=== PATIENT | female | born 1950 | race Caucasian/White ===

== ENCOUNTER 2019-03-28 08:52 | Outpatient (CLI) | payer MEDICARE, OTHER, SELFPAY ==
--- NOTE | ~2019-03-28 | US_ITS ---
EXAMINATION: US art doppler w press MIKE SAINI EXAM DATE: 03/28/2019 09:37 INDICATION: Peripheral arterial disease. Leg pain. Varicose veins. TECHNIQUE: Segmental pressures and plethysmographic and Doppler waveforms of the brachial and lower e xtremity arteries were obtained. There is no prior study for comparison. FINDINGS: Right and left brachial artery pressures of 158 mm Hg and 154 mm Hg, respectively, are concordant (no rmal difference <= 30 mmHg). The right and left thigh-brachial pressure indices are 1.16, 1.18, resp ectively (normal > 1.2). RIGHT LEG: The ankle-brachial index (SUZETTE) is 1.16 (normal >= 0.9-1). The great toe-brachial index (TBI) is 0.77 (normal >= 0.65). The lower extremity ratios, segmental pressure gradients as follows; Proximal superficial femoral artery:- 1.16 (183 mmHg). Distal superficial femoral artery: ----- 1.13 (179 mmHg). Popliteal: 1.17 (185 mmHg). Dorsalis pedis: 1.03 (162 mmHg). Posterior tibial: 1.16 (183 mmHg). (Normal gradients <= 20-30 mmHg between adjacent levels on the same leg or the same levels on the two legs). Arterial waveforms are biphasic. LEFT LEG: The ankle-brachial index (SUZETTE) is 1.08 (normal >= 0.9-1). The great toe-brachial index (TBI) is 0.89 (normal >= 0.65). The lower extremity ratios, segmental pressure gradients as follows; Proximal superficial femoral artery:- 1.18 (186 mmHg). Distal superficial femoral artery: ----- Could not obtain ( mmHg). Popliteal: 1.26 (199 mmHg). Dorsalis pedis: 1.08 (170 mmHg). Posterior tibial: 1.01 (151 mmHg). (Normal gradients <= 20-30 mmHg between adjacent levels on the same leg or the same levels on the two legs). Arterial waveforms are monophasic DP, otherwise biphasic. IMPRESSION: 1. Right ankle-brachial index 1.16, normal. 2. Left ankle-brachial index 1.08, normal. 3. Segmental pressures as above. Reviewed, dictated and finalized at location A. ITAL CARRIER
== END 2019-03-28 08:53 | disposition home or self-care (01) ==
LOC: ANHIMG 08:54
PROVIDERS: Visit Provider Internal Medicine Cardiovascular Disease
DX: M79.89 Other specified soft tissue disorders (principal)
CPT/HCPCS: 93923

== ENCOUNTER 2019-09-20 13:14 | Outpatient (CLI) | payer MEDICARE, OTHER, SELFPAY ==
--- NOTE | ~2019-09-20 | US_ITS ---
EXAMINATION: US carotid duplex BI EXAM DATE: 09/20/2019 13:53 INDICATION: Episode of speech impairment. TECHNIQUE: Grayscale, color and pulsed Doppler images of the cervical carotid arteries were obtained . The degree of vessel stenosis is placed in one of the following categories: normal, <50% stenosis, 50-69% stenosis, >=70% stenosis but less than near-occlusion, near-occlusion, or occlusion. Note that percent stenosis relative to normal distal artery lumen diameter is indirectly measured from velocit y measurements as described by Boone, et al. Radiology 2003; [id number]. There is no prior study fo r comparison. FINDINGS: RIGHT SIDE: Right common carotid artery peak systolic velocity (PSV in cm/s): 74 Right bulb/internal carotid artery peak systolic velocity (PSV in cm/s): 79 Right internal carotid artery end diastolic velocity (EDV in cm/s): 16 Right ICA/CCA peak systolic ratio: 1.1 Right external carotid artery peak systolic velocity (PSV in cm/s): 92 Right vertebral artery antegrade flow: yes There is mild to moderate carotid bulb plaque. Velocity and Doppler waveforms in the common and internal carotid arteries is normal. LEFT SIDE: Left common carotid artery peak systolic velocity (PSV in cm/s): 86 Left bulb/internal carotid artery peak systolic velocity (PSV in cm/s): 59 Left internal carotid artery end diastolic velocity (EDV in cm/s): 25 Left ICA/CCA peak systolic ratio: 0.7 Left external carotid artery peak systolic velocity (PSV in cm/s): 70 Left vertebral artery antegrade flow: yes There is mild carotid bulb plaque. Velocity and Doppler waveforms in the common and internal carotid arteries is normal. IMPRESSION: 1. Less than 50 percent stenosis in the right internal carotid artery. 2. Less than 50 percent stenosis in the left internal carotid artery. Reviewed, dictated and finalized at location A.
== END 2019-09-20 13:15 | disposition home or self-care (01) ==
LOC: ANHIMG 13:20
PROVIDERS: Visit Provider Internal Medicine Cardiovascular Disease
DX: R47.89 Other speech disturbances (principal); E78.5 Hyperlipidemia, unspecified; I65.23 Occlusion and stenosis of bilateral carotid arteries
CPT/HCPCS: 93880

== ENCOUNTER 2019-09-21 10:52 | Emergency (ER) | payer MEDICARE, OTHER, SELFPAY ==
[2019-09-21 11:04] VITALS: BP 142/76; PULSE 80; RESP 16; TEMP 36.8; O2SAT 98
--- NOTE | 2019-09-21 11:06 | ED.GENADULT ---
HPI - General Adult General Chief complaint: Skin/Abscess/Foreign Body Stated complaint: cyst (groin area) Time Seen by Provider: 09/21/19 11:06 Source: patient Mode of arrival: ambulatory Limitations: no limitations History of Present Illness HPI narrative: 68-year-old female patient presents to the [facility] with complaints of a cyst to the groin area for the past 2 days. Patient states she has been pushing on it and trying to pop it. Denies any drainage at this time. Denies any fevers, body aches or chills. Denies being a diabetic. Denies any injury to the area that she can remember. Related Data Home Medications Medication Instructions Recorded Confirmed aspirin [Adult Low Dose Aspirin] 81 mg PO DAILY 02/13/19 02/13/19 cholecalciferol (vitamin D3) 2,000 unit PO DAILY 02/13/19 02/13/19 [Vitamin D3] fluoxetine [Prozac] 10 mg PO DAILY 02/13/19 02/13/19 vitamin E succinate 02/13/19 triamterene 75 1 tablet PO DAILY 08/07/19 mg-hydrochlorothiazide 50 mg tablet AcipHex 09/21/19 Glucosamine Chondroitin 09/21/19 calcium carbonate [Calcium 600] 09/21/19 dexlansoprazole [Dexilant] mg 09/21/19 diazepam 09/21/19 Allergies Allergy/AdvReac Type Severity Reaction Status Date / Time acetaminophen Allergy Intermediate heartburn Verified 08/09/18 10:34 hydrocodone Allergy Intermediate n/v,dizzine Verified 08/09/18 10:34 ss tramadol Allergy Intermediate n/v, Verified 08/09/18 10:34 dizziness oxycodone Allergy Unknown n/v, Verified 08/09/18 10:34 dizziness Penicillins Allergy Unknown swelling Verified 08/09/18 10:34 eyes Review of Systems Review of Systems: Narrative: CONSTITUTIONAL: Denies fever, chills, or sweats. EYES: Denies visual changes, redness, or discharge. ENT: Denies rhinorrhea, congestion, sore throat, or otalgia. CARDIOVASCULAR: Denies chest pain, palpitations, or edema. RESPIRATORY: Denies cough or dyspnea. GASTROINTESTINAL: Denies abdominal pain, nausea, vomiting, or diarrhea. GENITOURINARY: Denies dysuria or hematuria. SKIN: Denies rash or itching. Positive cyst to groin area x2 days MUSCULOSKELETAL: Denies back pain, joint pain, or myalgia. NEUROLOGIC: Denies headache, numbness, or weakness. PSYCHIATRIC: Denies anxiety or depression. [facility] Past Medical History Medical History Anxiety Arthritis Generalized; primarily in knees and hips Back pain Cataract Cholecystitis DDD (degenerative disc disease) Depression Endometriosis GERD (gastroesophageal reflux disease) HLD (hyperlipidemia) Meniere's disease Rectal polyp Seasonal allergies UTI (urinary tract infection) Surgical History Surgical History History of 3 sections History of hysterectomy History of right hip replacement Social History Social History Smoking status: Never smoker Alcohol intake: never Gender identity (if verbalized by the patient): Female Comments At the time of my signature I agree with nursing past medical history, surgical, social, and family history. There is no relevant family history pertinent to the presenting complaint. Exam Narrative: Exam Narrative: GENERAL: Well-appearing, well-nourished, and in no acute distress. HEAD: Normocephalic, atraumatic. EYES: PERRLA and EOMI. ENT: Nares clear, no rhinorrhea or epistaxis. Mucous membranes moist. NECK: Supple. No lymphadenopathy CHEST: Clear to auscultation. No respiratory distress. HEART: Regular rate and rhythm. No murmur heard. Normal peripheral pulses. ABDOMEN: Soft, nontender, nondistended, normal active bowel sounds. EXTREMITIES: Normal range of motion. No edema. SKIN: Warm, dry, no rash. Patient has approximately 0.75 cm round red area with no hardening or drainable area palpated to the area. There is some healing purple bruising around the site wher
== END 2019-09-21 11:31 | disposition home or self-care (01) ==
PROVIDERS: Emergency Provider Nurse Practitioner Family
DX: K62.89 Other specified diseases of anus and rectum (principal); F32.9 Major depressive disorder, single episode, unspecified; K21.9 Gastro-esophageal reflux disease without esophagitis; E78.5 Hyperlipidemia, unspecified
CPT/HCPCS: 99211; G0463

== ENCOUNTER 2019-10-17 18:52 | Emergency (ER) | payer MEDICARE, OTHER, SELFPAY ==
--- NOTE | ~2019-10-17 | CT_ITS ---
EXAMINATION: CT abdomen pelvis w con DATE: 10/17/2019 21:36 INDICATION: Abdominal pain, nausea and cramping. Constipation. TECHNIQUE: Computed tomography (CT) of the abdomen and pelvis was performed with 100 cc Omnipaque 350 intravenous contrast. The dose-length product was 407.73 mGy-cm. Automated exposure control and iter ative reconstruction technique were employed. COMPARISON: 10/31/2016 FINDINGS: Heart size normal. There is a 1.3 cm right breast mass, partially visualized, image 1. No s ignificant pleural or pericardial effusion. Status post cholecystectomy. The liver, spleen, pancreas, adrenal glands and kidneys are unremarkable. Nonobstructive bowel gas pattern. No significant vascul ar abnormality. No lymphadenopathy. No abnormal pelvic masses or fluid collections. There is a right hip arthroplasty. Mild lower thoracic and lumbar spondylosis. Normal appendix. IMPRESSION: 1. No acute abdominal abnormality. 2: Partially visualized right breast mass measuring up to 1.3 cm. Correlation with diagnostic bilater al mammogram and ultrasound recommended. Reviewed, dictated and finalized at location A. IMPRESSION: 1. No acute abdominal abnormality. 2: Partially visualized right breast mass measuring up to 1.3 cm. Correlation w ith diagnostic bilateral mammogram and ultrasound recommended.
[2019-10-17 19:00] VITALS: BP 166/81; PULSE 85; RESP 20; TEMP 37.1; O2SAT 98
--- NOTE | 2019-10-17 19:05 | ED.ABDPAIN ---
HPI - Abdominal Pain General Chief Complaint: Abdominal Pain Stated Complaint: abd pain Time Seen by Provider: 10/17/19 19:05 Source: patient Mode of arrival: ambulatory Limitations: no limitations History of Present Illness HPI narrative: Patient is a 68-year-old female who presents for evaluation of abdominal pain. Patient reports cramping, sharp type abdominal pain throughout her abdomen which began this afternoon. Patient states that she has been constipated, and has noticed she has not been passing any gas, feels slightly bloated, but denies any distention. She has been nauseated without emesis. No fever or chills. Patient with history of hysterectomy, 3 sections and cholecystectomy. No history of bowel obstruction to her knowledge. Patient denies dysuria or hematuria. Patient states she is having a bowel movement this afternoon, with straining and pushing quite hard and she suddenly felt lightheaded. She states she did not pass out. This sensation lasted approximately 20 seconds before resolving. Patient denied any chest pain or palpitations. Related Data Home Medications Medication Instructions Recorded Confirmed aspirin [Adult Low Dose Aspirin] 81 mg PO DAILY 02/13/19 02/13/19 cholecalciferol (vitamin D3) 2,000 unit PO DAILY 02/13/19 02/13/19 [Vitamin D3] fluoxetine [Prozac] 10 mg PO DAILY 02/13/19 02/13/19 triamterene 75 1 tablet PO DAILY 08/07/19 mg-hydrochlorothiazide 50 mg tablet AcipHex 09/21/19 Glucosamine Chondroitin 09/21/19 Steroid Injections 09/21/19 calcium carbonate [Calcium 600] 09/21/19 diazepam 09/21/19 potassium chloride meq PO 10/17/19 rabeprazole mg PO 10/17/19 Allergies Allergy/AdvReac Type Severity Reaction Status Date / Time Penicillins Allergy Unknown swelling Verified 10/17/19 18:52 eyes hydrocodone AdvReac Intermediate n/v,dizzine Verified 10/17/19 19:09 ss tramadol AdvReac Intermediate n/v, Verified 10/17/19 19:09 dizziness oxycodone AdvReac Unknown n/v, Verified 10/17/19 19:09 dizziness Review of Systems Review of Systems: Narrative: CONSTITUTIONAL: Denies fever, chills, or sweats. ENT: Denies rhinorrhea, congestion, sore throat, or otalgia. CARDIOVASCULAR: Denies chest pain RESPIRATORY: Denies cough or dyspnea. GASTROINTESTINAL: Reports abdominal pain nausea, constipation GENITOURINARY: Denies dysuria or hematuria. SKIN: Denies rash or itching. MUSCULOSKELETAL: Denies back pain, joint pain, or myalgia. NEUROLOGIC: Denies headache, numbness, or weakness. [facility] Past Medical History Medical History Anxiety Arthritis Generalized; primarily in knees and hips Back pain Cataract Cholecystitis DDD (degenerative disc disease) Depression Endometriosis GERD (gastroesophageal reflux disease) HLD (hyperlipidemia) Meniere's disease Rectal polyp Seasonal allergies UTI (urinary tract infection) Surgical History Surgical History History of 3 sections History of hysterectomy History of right hip replacement Social History Social History Smoking status: Never smoker Alcohol intake: never Gender identity (if verbalized by the patient): Female Exam Narrative: Exam Narrative: GENERAL: Awake, alert, conversant HEAD: Normocephalic, atraumatic. EYES: PERRLA and EOMI. ENT: Nares clear, no rhinorrhea or epistaxis. Mucous membranes moist. NECK: Supple. CHEST: No respiratory distress, breathing even and non labored HEART: Regular rate, sinus rhythm ABDOMEN:Non distended, mild tenderness throughout, no guarding, nonrigid EXTREMITIES: Normal range of motion. No edema. SKIN: Warm, dry, no rash. NEURO:No focal deficits. Alert and oriented x3 Course Vital Signs Vital signs: Vital Signs Temperature 37.1 C 10/17/19 19:00 Pulse Rate 85 10/17/19 19:0
[2019-10-17 19:16] LABS: Basophils Percent Auto 0.1 % (0.2-1.2); Eosinophils Percent Auto 0.1 % (0-4.4); Hematocrit 40.2 % (37.0-47.0); Hemoglobin 14.2 g/dL (12.0-15.0); Immature Granulocyte Absolute 0.12 K/mm3 (0.00-0.031); Immature Granulocyte Percent A 0.8 % (0-0.5); Lymphocytes Absolute Auto 2.06 K/mm3 (0.9-3.2); Mean Corpuscular HGB Conc 35.3 g/dl (32-36); Mean Corpuscular Hemoglobin 31.5 pg (26-34); Mean Corpuscular Volume 89.1 fl (80-100); Mean Platelet Volume 9.5 fl (7.4-10.4); Monocytes Percent Auto 6.7 % (2.6-8.5); Neutrophils Absolute Auto 11.5 K/mm3 (1.3-6.7); Neutrophils Percent Auto 78.3 % (45.5-73.1); Platelet Count Result 545 k/mm3 (150-375); Red Blood Count 4.51 M/mm3 (4.2-5.4); Red Cell Distribution Width 12.4 % (11.5-14.5); White Blood Count 14.7 K/mm3 (4.5-10.0)
[2019-10-17 19:25] LABS: Alanine Aminotransferase 21 U/L (4-35); Albumin Level 4.6 g/dL (3.5-5.1); Alkaline Phosphatase 82 U/L (38-126); Anion Gap 13 mmol/L (8-16); Aspartate Amino Transferase 30 U/L (14-36); Bilirubin,Total 0.3 mg/dL (0.2-1.3); Blood Urea Nitrogen 21 mg/dL (7-17); Calcium 9.8 mg/dL (8.4-10.2); Carbon Dioxide 28 mmol/L (22-30); Chloride 87 mmol/L (98-107); Estimated CRCL calculation 60 ml/min; Estimated Glomerular Filt Rate > 60; Glucose 166 mg/dL (65-105); Lipase 261 U/L (23-300); Potassium 3.2 mmol/L (3.4-5.0); Sodium 128 mmol/L (137-145)
[2019-10-17] MEDS: ONDANSETRON INJ 4 MG/2 ML VIAL IV PUSH (19:32)
[2019-10-17] MEDS: MORPHINE SULFATE 4 MG/ML INJ IV PUSH (19:32)
[2019-10-17] MEDS: SODIUM CHLORIDE 0.9% IV 1,000 ML 999 ML IV CONT (19:33)
[2019-10-17 20:43] VITALS: BP 159/70; PULSE 69; RESP 18; TEMP 36.4; O2SAT 96
[2019-10-17 21:32] LABS: Add Urine Microscopic? YES; Appearance Urine Clear (Clear); Bilirubin Urine Negative (Negative); Blood Urine Negative (Negative); Color Urine Yellow (Yellow); Glucose Urine UA Negative (Negative); Ketones Urine Negative (Negative); Leukocyte Esterase Ur Negative LEU/UL (Negative); Nitrate Urine Negative (Negative); Protein Urine Negative (Negative); Specific Grav Ur 1.015 (1.001-1.035); Urobilinogen Urine Negative mg/dL (<2.0); WBC Urine 0-3 /hpf
--- NOTE | 2019-10-17 21:33 | PC.NURSE ---
Patient to radiology at this time.
[2019-10-17 22:09] VITALS: BP 146/72; PULSE 78; RESP 16; TEMP 36.1; O2SAT 96
--- NOTE | 2019-10-17 22:09 | PC.NURSE ---
Patient reports that she does not wish to have more pain medication at this time.
--- NOTE | 2019-10-17 22:36 | PC.NURSE ---
Patient reports she is unable to tolerate the flavor of the powder potassium. Order changed to PO pill with same dose.
[2019-10-17] MEDS: POTASSIUM CHLORIDE 20 MEQ TABLET 40 MEQ PO (22:40)
[2019-10-17 23:05] VITALS: BP 146/72; PULSE 78; RESP 17; O2SAT 99
== END 2019-10-17 23:06 | disposition home or self-care (01) ==
PROVIDERS: Emergency Medicine; Emergency Provider Emergency Medicine
DX: R10.9 Unspecified abdominal pain (principal); N63.0 Unspecified lump in unspecified breast; D72.829 Elevated white blood cell count, unspecified; F41.9 Anxiety disorder, unspecified; M19.90 Unspecified osteoarthritis, unspecified site; K21.9 Gastro-esophageal reflux disease without esophagitis; E78.5 Hyperlipidemia, unspecified; Z87.440 Personal history of urinary (tract) infections
CPT/HCPCS: 36415; 74177; 80053; 81001; 83690; 85025; 96361; 96374; 96375; 99284; A9270; J0131; J2270; J2405; J7030; Q9967

== ENCOUNTER 2019-10-24 06:56 | Outpatient (CLI) | payer MEDICARE, OTHER, SELFPAY ==
--- NOTE | ~2019-10-24 | MR_ITS ---
EXAMINATION: MR brain/brain stem wo con DATE: 10/24/2019 08:15 INDICATION: Meniere's disease. Sleep disturbance. TECHNIQUE: Magnetic resonance imaging (MRI) of the brain and brainstem was performed without intraven ous contrast. Sequences included sagittal and axial T1-weighted FSE, axial diffusion-weighted FS EPI, axial T2*-weighted GRE, axial T2-weighted FLAIR Propeller, axial T2-weighted Propeller, small field- of-view coronal FIESTA, small [id number] coronal T1-weighted FSE, and small [id number] axial T1 -weighted SPGR. Apparent diffusion coefficient (ADC) maps were created. COMPARISON: Head CT 12/31/2018 FINDINGS: There are scattered areas of nonspecific increased T2-weighted signal intensity in the cere bral white matter, which is within normal limits for the patient's age. There is no intracranial hemo rrhage, acute infarction, or abnormal intracranial mass lesion. The ventricles are normal in size. Th e internal auditory canals and inner and middle ears are normal. The mastoid air cells are normal. Th ere are likely changes of ocular lens replacement surgeries. The paranasal sinuses are clear. IMPRESSION: 1. Normal aging brain. Reviewed, dictated and finalized at location A. IMPRESSION: 1. Normal aging brain.
== END 2019-10-24 06:57 | disposition home or self-care (01) ==
DX: H81.09 Meniere's disease, unspecified ear (principal); G47.9 Sleep disorder, unspecified
CPT/HCPCS: 70551

== ENCOUNTER 2020-02-12 06:20 | Emergency (ER) | payer MEDICARE, OTHER, SELFPAY ==
--- NOTE | ~2020-02-12 | XR_ITS ---
EXAMINATION: XR chest 2V DATE: 02/12/2020 07:55 INDICATION: Weakness and nausea TECHNIQUE: Frontal and lateral views of the chest are obtained COMPARISON: 12/31/2018 FINDINGS: The lungs are free of acute opacities. There is no pleural effusion or pneumothorax. The ca rdiomediastinal silhouette is normal. There is moderate thoracic spondylosis. Surgical clips in the r ight upper quadrant are likely from prior cholecystectomy. IMPRESSION: 1. No acute cardiopulmonary abnormality. Reviewed, dictated and finalized at location A. 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
[2020-02-12 06:26] VITALS: BP 168/78; PULSE 80; RESP 18; TEMP 36.8; O2SAT 96
--- NOTE | 2020-02-12 06:54 | ECG_ITS ---
Measurements Intervals [place] Rate: 79 P: 42 [place]: 178 QRS: 16 QRSD: 85 T: 16 QT: 368 QTc: 424 Interpretive Statements SINUS RHYTHM MINIMAL Q WAVES- INFERIOR LEADS BASELINE ARTIFACT- II, III, AVF BORDERLINE ECG Electronically Signed On 02-12-2020 8:08:32 [employer]ATTLE [employer]ANCHER by Rodrigue Snigh D.O.
--- NOTE | 2020-02-12 07:08 | PC.NURSE ---
patient states that all symptoms started in Oct of this year, patient states that she has bags under her eyes, SOB, cough, urinary decrease, pain in her back and that she has been more tired than normal.
[2020-02-12 07:14] VITALS: BP 161/76; PULSE 79; RESP 18; O2SAT 100
[2020-02-12 07:17] LABS: Basophils Percent Auto 0.4 % (0.2-1.2); Eosinophils Absolute Auto 0.1 K/mm3 (0-0.3); Eosinophils Percent Auto 0.9 % (0-4.4); Hematocrit 42.5 % (37.0-47.0); Hemoglobin 14.5 g/dL (12.0-15.0); Immature Granulocyte Absolute 0.07 K/mm3 (0.00-0.031); Immature Granulocyte Percent A 0.8 % (0-0.5); Lymphocytes Absolute Auto 1.63 K/mm3 (0.9-3.2); Lymphocytes Percent Auto 18.2 % (18.3-44.2); Mean Corpuscular HGB Conc 34.1 g/dl (32-36); Mean Corpuscular Hemoglobin 32.2 pg (26-34); Mean Corpuscular Volume 94.2 fl (80-100); Mean Platelet Volume 9.3 fl (7.4-10.4); Monocytes Absolute Auto 0.8 K/mm3 (0.1-0.6); Monocytes Percent Auto 8.9 % (2.6-8.5); Neutrophils Absolute Auto 6.4 K/mm3 (1.3-6.7); Neutrophils Percent Auto 70.8 % (45.5-73.1); Platelet Count Result 460 k/mm3 (150-375); Red Blood Count 4.51 M/mm3 (4.2-5.4); Red Cell Distribution Width 12.9 % (11.5-14.5)
[2020-02-12] MEDS: ONDANSETRON INJ 4 MG/2 ML VIAL IV PUSH (07:27)
[2020-02-12 07:29] LABS: Alanine Aminotransferase 22 U/L (4-35); Albumin Level 4.4 g/dL (3.5-5.1); Alkaline Phosphatase 82 U/L (38-126); Anion Gap 9 mmol/L (8-16); Aspartate Amino Transferase 34 U/L (14-36); Bilirubin,Total 0.5 mg/dL (0.2-1.3); Blood Urea Nitrogen 17 mg/dL (7-17); Calcium 9.7 mg/dL (8.4-10.2); Carbon Dioxide 33 mmol/L (22-30); Chloride 90 mmol/L (98-107); Estimated CRCL calculation 57 ml/min; Estimated Glomerular Filt Rate > 60; Glucose 93 mg/dL (65-105); Potassium 3.3 mmol/L (3.4-5.0); Sodium 132 mmol/L (137-145)
--- NOTE | 2020-02-12 07:50 | ED.NAVMDI ---
HPI - Nausea/Vomiting/Diarrhea General Chief complaint: Nausea/Vomiting/Diarrhea Stated complaint: cough Time Seen by Provider: 02/12/20 06:57 History of Present Illness HPI Narrative: Patient is a 69-year-old female who presents ER with multiple complaints. Over the last 3 months she has developed a cough that occasionally gives her hoarse voice. Associated with mild nausea. No vomiting. She has been without fevers or chills or sweats. No known sick contacts. She denies weight loss but has reports she is decreased her oral intake of food over the last few months. Patient reports she is poorly compliant with her home medications. She has not seen her PCP for these issues. Patient reports some mild chest discomfort due to the coughing and is tender across anterior aspect. Related Data Home Medications Medication Instructions Recorded Confirmed aspirin [Adult Low Dose Aspirin] 81 mg PO DAILY 02/13/19 02/13/19 cholecalciferol (vitamin D3) 2,000 unit PO DAILY 02/13/19 02/13/19 [Vitamin D3] fluoxetine [Prozac] 10 mg PO DAILY 02/13/19 02/13/19 triamterene 75 1 tablet PO DAILY 08/07/19 mg-hydrochlorothiazide 50 mg tablet AcipHex 09/21/19 Glucosamine Chondroitin 09/21/19 Steroid Injections 09/21/19 calcium carbonate [Calcium 600] 09/21/19 diazepam 09/21/19 potassium chloride meq PO 10/17/19 rabeprazole mg PO 10/17/19 Allergies Allergy/AdvReac Type Severity Reaction Status Date / Time Penicillins Allergy Unknown swelling Verified 02/12/20 07:22 eyes hydrocodone AdvReac Intermediate n/v,dizzine Verified 02/12/20 07:22 ss tramadol AdvReac Intermediate n/v, Verified 02/12/20 07:22 dizziness oxycodone AdvReac Unknown n/v, Verified 02/12/20 07:22 dizziness Review of Systems Review of Systems: All systems reviewed & are unremarkable except as noted in HPI and below Constitutional: Constitutional: Denies chills, Reports fatigue, Denies fever(s) and Reports weakness ENT: Denies nasal congestion and Denies sore throat Comments: Hoarseness Cardiovascular: Cardiovascular: Reports chest pain, Denies rapid heart rate and Denies radiating jaw, neck or arm pain Respiratory: Respiratory: Reports cough, Denies dyspnea and Denies wheezing Gastrointestinal: Gastrointestinal: Denies abdominal pain, Denies diarrhea, Reports nausea and Denies vomiting Genitourinary: Genitourinary: Denies nocturia, Denies dysuria and Denies flank pain Comments: Decreased urinary frequency. [facility] Past Medical History Medical History (Updated 02/12/20 @ 09:01 by Mike Juan MD) Anxiety Arthritis Generalized; primarily in knees and hips Back pain Cataract Cholecystitis DDD (degenerative disc disease) Depression Endometriosis GERD (gastroesophageal reflux disease) HLD (hyperlipidemia) Meniere's disease Rectal polyp Seasonal allergies UTI (urinary tract infection) Surgical History Surgical History History of 3 sections History of hysterectomy History of right hip replacement Social History Social History Smoking status: Never smoker Alcohol intake: never Gender identity (if verbalized by the patient): Female Exam Narrative: Exam Narrative: GENERAL: Well-appearing, well-nourished, and in no acute distress. HEAD: Normocephalic, atraumatic. CHEST: Clear to auscultation. No respiratory distress. Reproducible chest wall tenderness over the lower aspect of the sternum. HEART: Regular rate and rhythm. Normal peripheral pulses. ABDOMEN: Soft, nontender, nondistended. EXTREMITIES: Normal range of motion. No edema. SKIN: Warm, dry, no rash. NEURO: Alert and oriented x3. PSYCH: Normal mood and affect. Course Course Emergency Course: Unremarkable evaluation. Recommend follow-up with PCP. Patient has persistent nausea and is needing as much she may require a EGD which I symone
[2020-02-12 08:20] VITALS: BP 143/73; PULSE 78; RESP 17; O2SAT 97
[2020-02-12 08:22] LABS: Add Urine Microscopic? YES; Appearance Urine Clear (Clear); Bilirubin Urine Negative (Negative); Blood Urine Negative (Negative); Color Urine Yellow (Yellow); Glucose Urine UA Negative (Negative); Ketones Urine Negative (Negative); Leukocyte Esterase Ur Trace LEU/UL (Negative); Nitrate Urine Negative (Negative); Protein Urine Negative (Negative); RBC Urine 0-2 /hpf (0-2); Squamous Epithelial Cell Urine Rare /hpf (Few); Urobilinogen Urine Negative mg/dL (<2.0); WBC Urine 0-3 /hpf
[2020-02-12 09:11] VITALS: BP 145/79; PULSE 78; RESP 20; O2SAT 96
== END 2020-02-12 09:13 | disposition home or self-care (01) ==
PROVIDERS: Emergency Provider Emergency Medicine; PCP Physician Assistant
DX: R53.1 Weakness (principal); M16.0 Bilateral primary osteoarthritis of hip; M17.0 Bilateral primary osteoarthritis of knee; F32.9 Major depressive disorder, single episode, unspecified; N80.9 Endometriosis, unspecified; K21.9 Gastro-esophageal reflux disease without esophagitis; E78.5 Hyperlipidemia, unspecified; H81.09 Meniere's disease, unspecified ear; Z87.440 Personal history of urinary (tract) infections; Z96.641 Presence of right artificial hip joint; Z79.82 Long term (current) use of aspirin; R94.31 Abnormal electrocardiogram [ECG] [EKG]
CPT/HCPCS: 36415; 71046; 80053; 81001; 84443; 85025; 93005; 96374; 99284; J2405

== ENCOUNTER 2020-02-22 08:13 | Outpatient (CLI) | payer MEDICARE, OTHER, SELFPAY ==
[2020-02-22 08:48] LABS: Basophils Percent Auto 0.6 % (0.2-1.2); Eosinophils Absolute Auto 0.1 K/mm3 (0-0.3); Eosinophils Percent Auto 0.9 % (0-4.4); Hematocrit 38.3 % (37.0-47.0); Hemoglobin 13.2 g/dL (12.0-15.0); Immature Granulocyte Absolute 0.05 K/mm3 (0.00-0.031); Immature Granulocyte Percent A 0.8 % (0-0.5); Lymphocytes Absolute Auto 1.29 K/mm3 (0.9-3.2); Lymphocytes Percent Auto 19.4 % (18.3-44.2); Mean Corpuscular HGB Conc 34.5 g/dl (32-36); Mean Corpuscular Volume 92.7 fl (80-100); Monocytes Absolute Auto 0.6 K/mm3 (0.1-0.6); Monocytes Percent Auto 8.4 % (2.6-8.5); Neutrophils Absolute Auto 4.7 K/mm3 (1.3-6.7); Neutrophils Percent Auto 69.9 % (45.5-73.1); Platelet Count Result 452 k/mm3 (150-375); Red Blood Count 4.13 M/mm3 (4.2-5.4); Red Cell Distribution Width 12.5 % (11.5-14.5); White Blood Count 6.7 K/mm3 (4.5-10.0)
[2020-02-22 09:03] LABS: Alanine Aminotransferase 18 U/L (4-35); Alkaline Phosphatase 80 U/L (38-126); Anion Gap 6 mmol/L (8-16); Aspartate Amino Transferase 31 U/L (14-36); Bilirubin,Total 0.3 mg/dL (0.2-1.3); Blood Urea Nitrogen 12 mg/dL (7-17); Calcium 9.3 mg/dL (8.4-10.2); Carbon Dioxide 35 mmol/L (22-30); Chloride 88 mmol/L (98-107); Estimated Glomerular Filt Rate > 60; Glucose 111 mg/dL (65-105); Potassium 3.2 mmol/L (3.4-5.0); Sodium 129 mmol/L (137-145)
[2020-02-22 09:41] LABS: Free T4 Free Thyroxine 0.92 ng/mL (0.78-2.19)
[2020-02-25 20:48] LABS: EBV Nuclear Ab Interpretation Past; EBV Virus Capsid Ag IgG Ab >750.00 U/mL (<18.00); EBV Virus Capsid Ag IgM Ab <36.00 U/mL (<36.00)
== END 2020-02-22 08:14 | disposition home or self-care (01) ==
PROVIDERS: PCP Physician Assistant; Visit Provider Physician Assistant
DX: R49.0 Dysphonia (principal)
CPT/HCPCS: 36415; 80053; 84439; 84443; 85025; 86664; 86665

== ENCOUNTER 2020-02-26 12:12 | Inpatient (IN) | payer MEDICARE, OTHER, SELFPAY ==
--- NOTE | ~2020-02-26 | CT_ITS ---
EXAMINATION: CT abdomen pelvis w con DATE: 02/26/2020 13:25 INDICATION: Right lower quadrant abdominal pain. Nausea. TECHNIQUE: Computed tomography (CT) of the abdomen and pelvis was performed with 100 mL Omnipaque 350 intravenous contrast. Automated exposure control and iterative reconstruction technique were employe d. The dose-length product was 438.51 mGy-cm. COMPARISON: CT abdomen and pelvis 10/17/2019 FINDINGS: The visualized portions of the lung bases demonstrate mild atelectasis. No pleural effusion . The heart size is normal. No pericardial effusion. The liver, spleen, pancreas, and left adrenal gl and are normal. There is a 6 mm mass of fat in right adrenal gland, consistent with a myelolipoma. Th ere are changes of cholecystectomy. There is cortical thinning of the kidneys. There is a 7 mm cyst i n left kidney. The appendix is normal. There are no dilated loops of bowel. There is wall thickening of the distal descending colon with adjacent mild fat stranding, consistent with colitis. There are n o pathologically enlarged lymph nodes. There is no free intraperitoneal fluid. There is a total right hip arthroplasty. There is mild lumbar spondylosis. IMPRESSION: 1. Colitis of distal descending colon. Reviewed, dictated and finalized at location A. DIGGER
[2020-02-26 12:40] VITALS: BP 145/71; PULSE 85; RESP 18; O2SAT 99
--- NOTE | 2020-02-26 12:46 | ED.ABDPAIN ---
HPI - Abdominal Pain General Chief Complaint: Abdominal Pain Stated Complaint: abd Time Seen by Provider: 02/26/20 12:20 Source: RN notes reviewed History of Present Illness HPI narrative: Patient presents to emergency department from home for abdominal pain. States pain began approximate 1 hour ago located in the epigastric and right upper quadrant described as sharp and stabbing associate with nausea. Denies any fevers or chills chest pain shortness of breath vomiting diarrhea or any other symptoms states she took no medications for the pain at home Related Data Home Medications Medication Instructions Recorded Confirmed aspirin [Adult Low Dose Aspirin] 81 mg PO DAILY 02/13/19 02/13/19 cholecalciferol (vitamin D3) 2,000 unit PO DAILY 02/13/19 02/13/19 [Vitamin D3] fluoxetine [Prozac] 10 mg PO DAILY 02/13/19 02/13/19 triamterene 75 1 tablet PO DAILY 08/07/19 mg-hydrochlorothiazide 50 mg tablet AcipHex 09/21/19 Glucosamine Chondroitin 09/21/19 Steroid Injections 09/21/19 calcium carbonate [Calcium 600] 09/21/19 diazepam 09/21/19 potassium chloride meq PO 10/17/19 rabeprazole mg PO 10/17/19 Allergies Allergy/AdvReac Type Severity Reaction Status Date / Time Penicillins Allergy Severe swelling Verified 02/26/20 14:21 eyes hydrocodone AdvReac Intermediate n/v,dizzine Verified 02/26/20 12:43 ss tramadol AdvReac Intermediate n/v, Verified 02/26/20 12:43 dizziness oxycodone AdvReac Unknown n/v, Verified 02/26/20 12:43 dizziness Review of Systems Review of Systems: Narrative: Gen.: Denies fevers or chills ENT: Denies congestion Respiratory: Denies shortness of breath or cough CV: Denies chest pain or palpitations GI: See HPI denies burning, urgency, frequency or hematuria Musculoskeletal: Denies back pain or muscle pain Neuro: Denies numbness, tingling, weakness or focal weakness Skin: Denies rash Except as documented, all other systems reviewed and negative PMF Past Medical History Medical History (Updated 02/26/20 @ 14:30 by Everardo Horner DO) Anxiety Arthritis Generalized; primarily in knees and hips Back pain Cataract Cholecystitis DDD (degenerative disc disease) Depression Endometriosis GERD (gastroesophageal reflux disease) HLD (hyperlipidemia) Meniere's disease Rectal polyp Seasonal allergies UTI (urinary tract infection) Surgical History Surgical History History of 3 sections History of hysterectomy History of right hip replacement Social History Social History Smoking status: Never smoker Alcohol intake: never Gender identity (if verbalized by the patient): Female Exam Narrative: Exam Narrative: APPEARANCE: No acute distress, nontoxic, resting in bed HEENT: Normocephalic, atraumatic, OMM RESPIRATORY: No respiratory distress, clear to auscultation bilaterally with no rhonchi wheezing or rales CARDIOVASCULAR: RRR s murmur ABDOMINAL: Soft, nondistended, tender palpation epigastric and right upper quadrant left upper quadrant no tenderness in right lower quadrant left lower quadrant no rebound or guarding MUSCULOSKELETAl: Moves all extremities. No clubbing, cyanosis or edema. NEURO: Awake and alert. Following commands, speech normal, no focal deficits SKIN:: Warm, dry. Normal Color PSYCHIATRIC: Normal affect/mood Course Course Emergency Course: Discussed with [employer] TREATMENT ENGINEER Selena cerda work-up agrees with admission at this time Discussed with patient and family results of workup and diagnosis. Discussed need for admission. Patient and family understand and agree to current treatment plan Vital Signs Vital signs: Vital Signs Pulse Rate 85 02/26/20 12:40 Respiratory Rate 18 02/26/20 12:40 Blood Pressure 145/71 H 02/26/20 12:40 Pulse Oximetry 99 02/26/20 12:40 Pulse Rate 85 02/26/20 12:40 Respiratory
[2020-02-26 12:56] LABS: Basophils Percent Auto 0.4 % (0.2-1.2); Eosinophils Percent Auto 0.4 % (0-4.4); Hematocrit 39.9 % (37.0-47.0); Hemoglobin 14.3 g/dL (12.0-15.0); Immature Granulocyte Absolute 0.08 K/mm3 (0.00-0.031); Immature Granulocyte Percent A 1.1 % (0-0.5); Lymphocytes Absolute Auto 1.41 K/mm3 (0.9-3.2); Mean Corpuscular HGB Conc 35.8 g/dl (32-36); Mean Corpuscular Hemoglobin 32.5 pg (26-34); Mean Corpuscular Volume 90.7 fl (80-100); Mean Platelet Volume 8.8 fl (7.4-10.4); Monocytes Absolute Auto 0.4 K/mm3 (0.1-0.6); Monocytes Percent Auto 5.1 % (2.6-8.5); Neutrophils Absolute Auto 5.5 K/mm3 (1.3-6.7); Platelet Count Result 466 k/mm3 (150-375); Red Cell Distribution Width 12.3 % (11.5-14.5); White Blood Count 7.4 K/mm3 (4.5-10.0)
[2020-02-26] MEDS: SODIUM CHLORIDE 0.9% IV 1,000 ML 999 ML IV CONT (13:00)
[2020-02-26 13:09] LABS: Add Urine Microscopic? YES; Appearance Urine Cloudy (Clear); Bilirubin Urine Negative (Negative); Blood Urine Negative (Negative); Color Urine Amber (Yellow); Glucose Urine UA Negative (Negative); Ketones Urine Negative (Negative); Leukocyte Esterase Ur Negative LEU/UL (Negative); Mucus Urine Rare /lpf; Nitrate Urine Negative (Negative); Protein Urine Negative (Negative); Specific Grav Ur 1.014 (1.001-1.035); WBC Urine 0-3 /hpf
[2020-02-26 13:10] LABS: Alanine Aminotransferase 22 U/L (4-35); Albumin Level 4.4 g/dL (3.5-5.1); Alkaline Phosphatase 90 U/L (38-126); Anion Gap 11 mmol/L (8-16); Aspartate Amino Transferase 35 U/L (14-36); Bilirubin,Total 0.4 mg/dL (0.2-1.3); Blood Urea Nitrogen 14 mg/dL (7-17); Calcium 9.9 mg/dL (8.4-10.2); Carbon Dioxide 30 mmol/L (22-30); Chloride 86 mmol/L (98-107); Estimated CRCL calculation 57 ml/min; Estimated Glomerular Filt Rate > 60; Glucose 154 mg/dL (65-105); Lipase 293 U/L (23-300); Potassium 2.9 mmol/L (3.4-5.0); Sodium 127 mmol/L (137-145)
[2020-02-26 14:30] LABS: Magnesium 1.6 mg/dL (1.6-2.3)
[2020-02-26] MEDS: metroNIDAZOLE 500 MG/ISO 100ML 500 MG/100 ML BAG 100 MG IVPB ×2 (15:03→20:15)
[2020-02-26 15:04] VITALS: BP 138/86; PULSE 82; RESP 17; O2SAT 97
[2020-02-26] MEDS: POTASSIUM CHLORIDE 20 MEQ PACKET (FOR LIQUID) 40 MEQ PO (15:18)
[2020-02-26 16:14] VITALS: BP 137/71; PULSE 89; RESP 19; TEMP 36.4; O2SAT 98
[2020-02-26 16:15] VITALS: BMI 29.1
--- NOTE | 2020-02-26 16:18 | ADMGEN ---
This patient, Maggi Kamara, was admitted to 2 Medical Room 242-. Patient/family oriented to hospital policies and general routines including ID bracelet, bed and alarms, visiting hours, pain management, procedures, bathroom and other care routines, personal items, smoking policy, room service/diet, and visiting hours. Information on how to activate the Rapid Response Team has been discussed. Patient/Family are encouraged to report perceived risks to care and to ask questions if they do not understand what they are told or what they should do.
[2020-02-26] MEDS: SODIUM CHLORIDE 0.9% IV 1,000 ML 125 ML IV CONT (17:39)
--- NOTE | 2020-02-26 18:02 | PM.IMHP ---
H&P: HPI History of Present Illness Date/Time: 02/26/20 18:02 Chief Complaint: Abdominal pain Narrative: Maggi Kamara is a 69 year old female the patient has a history of hypertension and is on a diuretic as well as potassium at home. The patient came to the emergency room for abdominal pain. She said that her abdominal pain began 1 hour prior to coming to the emergency room. It was in the epigastric and right upper quadrant follicular sharp and stabbing. The patient also was nauseated but did not have any vomiting or diarrhea. No fever no chills. No sick contacts. She has not changed any medication are taken anything to help resolve this discomfort. Her potassium was noted to be 2.9 and her sodium 127. Flagyl and Levaquin for possible bacteria colitis and was supplemented with potassium. She was also given IV Tylenol. The patient stated she is feeling much better now that she has gotten the potassium and the IV fluids. The patient was tested for COVID over week ago and was found to be negative. The CT scan of the abdomen was read as colitis of distal descending colon. Patient is being admitted to inpatient status on the date of service of 02/26/2020. Review of Systems Review of Systems: All systems reviewed & are unremarkable except as noted in HPI and below Constitutional: Constitutional: Reports as per HPI and Reports no additional constitutional complaints Eyes: Eyes: Reports as per HPI and Reports no additional eye complaints ENT: Reports system reviewed and no additional complaints, except as documented and Reports Normal hearing present Cardiovascular: Cardiovascular: Reports no additional cardiovascular complaints Respiratory: Respiratory: Reports no additional respiratory complaints and Reports no additional respiratory complaints Gastrointestinal: Gastrointestinal: Reports as per HPI and Reports no additional gastrointestinal complaints Musculoskeletal: Musculoskeletal: Reports no additional musculoskeletal complaints Integumentary/Breasts: Skin/Breast: Reports system reviewed and no additional complaints, except as docu and Reports as per HPI Neurologic: Reports system reviewed and no additional complaints, except as documented, Reports as per HPI and Reports Normal hearing present Psychiatric: Psychiatric: Reports no additional psychiatric complaints and Reports as per HPI Endocrine: Endocrine: Reports no additional endocrine complaints Hematologic/Lymphatic: Hematologic/Lymphatic: Reports no additional hematologic/lymphatic complaints Allergic/Immunologic: Allergic/Immunologic: Reports no additional allergic/immunologic complaints [facility] Past Medical History Medical History (Updated 02/26/20 @ 18:18 by Selena Yoo NP) Anxiety Arthritis Generalized; primarily in knees and hips Back pain Cataract Cholecystitis DDD (degenerative disc disease) Depression Diverticulosis Endometriosis GERD (gastroesophageal reflux disease) HLD (hyperlipidemia) Meniere's disease Pilonidal cyst Extracted Rectal polyp Seasonal allergies UTI (urinary tract infection) Surgical History Surgical History (Updated 02/26/20 @ 18:11 by Selena Yoo NP) History of 3 sections History of hysterectomy History of right hip replacement Hx of cholecystectomy Family History Family History (Updated 02/26/20 @ 18:13 by Selena Yoo NP) Mother Hypertension Cerebrovascular accident Hyperlipidemia Sibling Diabetes mellitus Social History Social History (Updated 02/26/20 @ 18:13 by Selena Yoo NP) Social History: The patient is and lives with her in [place]. She has 4 children. She is retired from the [employer]. She denies any alcohol tobacco or drug use. Lifelong nonsmoker. Smoking status: Never smoker Alcohol intake: never Substance use: never Gender identity (if verbalized by the patient): Female Spiritual care concerns: No Meds Home Medication
[2020-02-26] MEDS: ACETAMINOPHEN 325 MG TABLET 650 MG PO (20:57)
[2020-02-26] MEDS: HYOSCYAMINE SULFATE 0.0625 MG TABLET PO (20:58)
[2020-02-26 21:51] VITALS: BP 136/63; PULSE 83; RESP 16; TEMP 36.7; O2SAT 98
[2020-02-26 22:21] LABS: Magnesium 1.4 mg/dL (1.6-2.3)
[2020-02-26 22:22] LABS: Anion Gap 6 mmol/L (8-16); Blood Urea Nitrogen 11 mg/dL (7-17); Carbon Dioxide 31 mmol/L (22-30); Chloride 94 mmol/L (98-107); Estimated CRCL calculation 65 ml/min; Estimated Glomerular Filt Rate > 60; Glucose 117 mg/dL (65-105); Potassium 3.4 mmol/L (3.4-5.0); Sodium 131 mmol/L (137-145)
[2020-02-27] MEDS: metroNIDAZOLE 500 MG/ISO 100ML 500 MG/100 ML BAG 100 MG IVPB ×2 (02:40→08:39)
[2020-02-27] MEDS: SODIUM CHLORIDE 0.9% IV 1,000 ML 125 ML IV CONT ×2 (02:40→12:33)
[2020-02-27 05:39] LABS: Basophils Percent Auto 0.3 % (0.2-1.2); Eosinophils Percent Auto 0.3 % (0-4.4); Hematocrit 33.9 % (37.0-47.0); Hemoglobin 11.7 g/dL (12.0-15.0); Immature Granulocyte Absolute 0.04 K/mm3 (0.00-0.031); Immature Granulocyte Percent A 0.7 % (0-0.5); Lymphocytes Absolute Auto 1.02 K/mm3 (0.9-3.2); Lymphocytes Percent Auto 16.7 % (18.3-44.2); Mean Corpuscular HGB Conc 34.5 g/dl (32-36); Mean Corpuscular Hemoglobin 31.4 pg (26-34); Mean Corpuscular Volume 90.9 fl (80-100); Mean Platelet Volume 9.2 fl (7.4-10.4); Monocytes Absolute Auto 0.5 K/mm3 (0.1-0.6); Monocytes Percent Auto 7.6 % (2.6-8.5); Neutrophils Absolute Auto 4.5 K/mm3 (1.3-6.7); Neutrophils Percent Auto 74.4 % (45.5-73.1); Platelet Count Result 443 k/mm3 (150-375); Red Blood Count 3.73 M/mm3 (4.2-5.4); Red Cell Distribution Width 12.5 % (11.5-14.5); White Blood Count 6.1 K/mm3 (4.5-10.0)
[2020-02-27 06:00] VITALS: BP 121/53; PULSE 77; RESP 16; TEMP 36.3; O2SAT 94
[2020-02-27 06:07] LABS: Alanine Aminotransferase 15 U/L (4-35); Albumin Level 3.3 g/dL (3.5-5.1); Alkaline Phosphatase 70 U/L (38-126); Anion Gap 3 mmol/L (8-16); Aspartate Amino Transferase 28 U/L (14-36); Bilirubin,Total 0.4 mg/dL (0.2-1.3); Blood Urea Nitrogen 8 mg/dL (7-17); Calcium 8.6 mg/dL (8.4-10.2); Carbon Dioxide 31 mmol/L (22-30); Chloride 99 mmol/L (98-107); Estimated CRCL calculation 65 ml/min; Estimated Glomerular Filt Rate > 60; Glucose 93 mg/dL (65-105); Potassium 3.4 mmol/L (3.4-5.0); Sodium 133 mmol/L (137-145)
[2020-02-27] MEDS: ASPIRIN 81 MG ENTERIC TABLET PO (08:38)
[2020-02-27] MEDS: CALCIUM CARBONATE (OSCAL) 500 MG TABLET 1500 MG PO (08:38)
[2020-02-27] MEDS: CHOLECALCIFEROL 1,000 UNITS TABLET 2000 UNITS PO (08:38)
[2020-02-27] MEDS: POTASSIUM CHLORIDE 10 MEQ TABLET.ER PO (08:39)
[2020-02-27] MEDS: FLUoxetine HCL 20 MG CAPSULE 40 MG PO (08:39)
[2020-02-27] MEDS: ACETAMINOPHEN 325 MG TABLET 650 MG PO (12:35)
[2020-02-27 14:00] VITALS: BP 128/53; PULSE 76; RESP 18; TEMP 36.3; O2SAT 96
--- NOTE | 2020-02-27 14:01 | PM.DS ---
DS: Admitting Diagnosis Admitting Diagnosis Admitting Diagnosis: (1) Colitis: Code(s): K52.9 - Noninfective gastroenteritis and colitis, unspecified Status: Acute Assessment and Plan: (2) Acute hypokalemia: Code(s): E87.6 - Hypokalemia Status: Acute Assessment and Plan: l. (3) Acute hyponatremia: Code(s): E87.1 - Hypo-osmolality and hyponatremia Status: Acute Assessment and Plan: (4) Depression: Code(s): F32.9 - Major depressive disorder, single episode, unspecified Status: Chronic Assessment and Plan: (5) Meniere disease: Code(s): H81.09 - Meniere's disease, unspecified ear Status: Acute DS: Discharge Diagnosis Discharge Diagnosis (1) Colitis: Code(s): K52.9 - Noninfective gastroenteritis and colitis, unspecified Status: Acute (2) Acute hyponatremia: Code(s): E87.1 - Hypo-osmolality and hyponatremia Status: Acute (3) Acute hypokalemia: Code(s): E87.6 - Hypokalemia Status: Acute (4) Diverticulosis: Code(s): K57.90 - Diverticulosis of intestine, part unspecified, without perforation or abscess without bleeding Status: Chronic (5) Hoarseness of voice: Code(s): R49.0 - Dysphonia Status: Acute (6) Meniere disease: Code(s): H81.09 - Meniere's disease, unspecified ear Status: Acute (7) Depression: Code(s): F32.9 - Major depressive disorder, single episode, unspecified Status: Chronic DS: Summary Hospital Course Hospital Course: Maggi Kamara is a 69 year old female the patient has a history of hypertension on a diuretic as well as potassium at home, came to the emergency room for abdominal pain,that her abdominal pain began 1 hour prior to coming to the emergency room. It was in the epigastric area and right upper quadrant sharp, stabbing. The patient also was nauseated but did not have any vomiting or diarrhea. No fever no chills. No sick contacts. Her potassium was noted to be 2.9 and her sodium 127. She was started on Flagyl and Levaquin for possible bacteria colitis and was supplemented with potassium. The patient stated she is feeling much better now that she has gotten the potassium and the IV fluids. She was tested for COVID over week ago and was found to be negative. The CT scan of the abdomen was read as colitis of distal descending colon. EXAMINATION: US abdomen complete EXAM DATE: 03/22/2020 08:31 INDICATION: LUQ abdominal pain. Left upper quadrant lump. TECHNIQUE: Multiple grayscale and Doppler images of the complete abdomen were obtained (by a technologist who performed the scan) and subsequently reviewed. Comparison is made to prior examination from 03/25/2016. FINDINGS: There is an images annotated left upper quadrant area of pain and lump which demonstrate unremarkable subcutaneous fat and lower thoracic wall. There is artifact from a rib or costochondral cartilage which does appear to protrude external compared to an adjacent level, would most likely be a congenital appearance. Uncertain whether or not this correlates to the palpable abnormality. The abdominal aorta is normal in caliber. Visualized portion IVC is patent. The pancreatic head and body are normal in appearance. The pancreatic tail is not visualized. The liver has normal echogenicity and contour. There are no focal liver lesions identified. There is no evidence of intrahepatic biliary duct dilation. Portal venous flow was seen in the hepatopedal, normal direction and has normal Doppler waveform. Common bile duct measures 4-5 mm, which is normal. The gallbladder fossa is unremarkable. Right kidney: There is normal contour and mildly increased echogenicity, is isoechoic to the liver. It measures 8.7 x 4.3 x 5.5 centimeters. There are no focal renal lesions identified. There is no hydronephrosis. Left kidney: There is normal contour and m
== END 2020-02-27 14:59 | disposition home or self-care (01) | DRG 392 ==
LOC: ANHED 14:30 → ANH2MED 15:06
PROVIDERS: General Practice; Nurse Practitioner; Admitting Provider Family Medicine; Emergency Provider Emergency Medicine; PCP Physician Assistant; Visit Provider Internal Medicine
DX: K52.9 Noninfective gastroenteritis and colitis, unspecified (principal); E87.1 Hypo-osmolality and hyponatremia; E87.6 Hypokalemia; K57.90 Diverticulosis of intestine, part unspecified, without perforation or abscess without bleeding; R49.0 Dysphonia; K21.9 Gastro-esophageal reflux disease without esophagitis; I10 Essential (primary) hypertension; E78.5 Hyperlipidemia, unspecified; F32.9 Major depressive disorder, single episode, unspecified; H81.09 Meniere's disease, unspecified ear; Z28.21 Immunization not carried out because of patient refusal; Z79.82 Long term (current) use of aspirin; Z79.899 Other long term (current) drug therapy
CPT/HCPCS: 36415; 74177; 80048; 80053; 81001; 83690; 83735; 85025; 87015; 87045; 87046; 87269; 87272; 87427; 89055; 96365; 96367; 99285; A9270; G0378; J0131; J1956; J7030; Q9967

== ENCOUNTER → 2020-03-22 07:39 | Outpatient (CLI) | payer MEDICARE, OTHER, SELFPAY ==
--- NOTE | ~2020-03-22 | US_ITS ---
EXAMINATION: US abdomen complete EXAM DATE: 03/22/2020 08:31 INDICATION: LUQ abdominal pain. Left upper quadrant lump. TECHNIQUE: Multiple grayscale and Doppler images of the complete abdomen were obtained (by a technolo marycarmen who performed the scan) and subsequently reviewed. Comparison is made to prior examination from 03/25/2016. FINDINGS: There is an images annotated left upper quadrant area of pain and lump which demonstrate u nremarkable subcutaneous fat and lower thoracic wall. There is artifact from a rib or costochondral c artilage which does appear to protrude external compared to an adjacent level, would most likely be a congenital appearance. Uncertain whether or not this correlates to the palpable abnormality. The abdominal aorta is normal in caliber. Visualized portion IVC is patent. The pancreatic head a nd body are normal in appearance. The pancreatic tail is not visualized. The liver has normal echogenicity and contour. There are no focal liver lesions identified. There is no evidence of intrahepatic biliary duct dilation. Portal venous flow was seen in the hepatopedal , normal direction and has normal Doppler waveform. Common bile duct measures 4-5 mm, which is normal. The gallbladder fossa is unremarkable. Right kidney: There is normal contour and mildly increased echogenicity, is isoechoic to the liver. It measures 8.7 x 4.3 x 5.5 centimeters. There are no focal renal lesions identified. There is n o hydronephrosis. Left kidney: There is normal contour and mildly increased echogenicity. It measures 9.4 x 5.1 x 4.4 centimeters. There are no focal renal lesions identified. There is no hydronephrosis. The spleen measures 7.7 centimeters and is morphologically normal. IMPRESSION: 1. Mildly increased renal cortical echogenicity, possible medical renal disease. 2. Left upper quadrant rib protruding externally but otherwise unremarkable symptomatic region. Reviewed, dictated and finalized at location A. E HISTORIAN IMPRESSION: 1. Mildly increased renal cortical echogenicity, possible medical renal diseas e. 2. Left upper quadrant rib protruding externally but otherwise unremarkable sy mptomatic region.
== END ==
PROVIDERS: PCP Physician Assistant; Visit Provider Physician Assistant
DX: R10.12 Left upper quadrant pain (principal)
CPT/HCPCS: 76700

== ENCOUNTER → 2020-04-10 07:47 | Outpatient (CLI) | payer MEDICARE, OTHER, SELFPAY ==
--- NOTE | ~2020-04-10 | CT_ITS ---
EXAMINATION: CT diagnostic chest wo con DATE: 04/10/2020 08:14 INDICATION: Left rib and sternal pain. No known injury. Occasional cough and shortness of breath. TECHNIQUE: Computed tomography (CT) of the chest was performed without intravenous contrast. Automate d exposure control and iterative reconstruction technique were employed. Exam dose: 202.19 mGy-cm to nati exam DLP. COMPARISON: 02/12/2020 PA and lateral chest FINDINGS: Calcified right upper lobe pulmonary granuloma and calcified mediastinal and right hilar no nissa, consistent with old pulmonary granulomatous disease. No hilar or mediastinal mass lesion or lymphadenopathy. Normal heart size. Thoracic aortic and great vessel and coronary artery calcifications. No thoracic a ortic aneurysm. No pericardial or pleural effusion. No pulmonary infiltrate or consolidation or pulmonary mass lesion. Status post cholecystectomy. Normal adrenal glands. Degenerative spurring of the thoracic spine. No sternal or rib fracture or bone destruction. IMPRESSION: No significant abnormality Reviewed, dictated and finalized at [facility]. Reviewed, dictated and finalized at location B. RACTIVE DEVELOPER IMPRESSION: No significant abnormality
== END ==
PROVIDERS: PCP Physician Assistant; Visit Provider Physician Assistant
DX: R07.81 Pleurodynia (principal)
CPT/HCPCS: 71250

== ENCOUNTER 2020-08-21 08:33 | Emergency (ER) | payer MEDICARE, OTHER, SELFPAY ==
--- NOTE | ~2020-08-21 | XR_ITS ---
EXAMINATION: XR chest 2V DATE: 08/21/2020 09:19 INDICATION: Left lateral chest pain TECHNIQUE: PA and lateral views of the chest were obtained. COMPARISON: Chest radiograph dated 02/12/[address] dated 04/10/2020 FINDINGS: No interval change in minimal lingular atelectasis/scarring. No other airspace opacities, pulmonary e frantz, pleural effusion or pneumothorax. The cardiomediastinal silhouette is normal. Cholecystectomy c lips in the right upper quadrant. Moderate thoracolumbar spondylosis with chronic mild anterior wedgi ng of a few mid and lower thoracic vertebral bodies. IMPRESSION: 1. Unchanged minimal lingular atelectasis/scarring. No acute cardiopulmonary disease. Reviewed, dictated and finalized at location A. IMPRESSION: 1. Unchanged minimal lingular atelectasis/scarring. No acute cardiopulmonary di sease.
--- NOTE | ~2020-08-21 | CT_ITS ---
EXAMINATION: CTA chest PE protocol DATE: 08/21/2020 11:22 INDICATION: Chest pain and nausea. TECHNIQUE: Computed tomography angiography (CTA) of the chest was performed with 100 mL Omnipaque-350 intravenous contrast timed to evaluate the pulmonary arteries. Coronal maximum intensity projection 3D-reconstructions were created by the technologist. Automated exposure control and iterative reconst ruction technique were employed. The dose-length product was 290.70 mGy-cm. COMPARISON: Chest CT 04/10/2020 FINDINGS: A calcified right lung nodule and calcified right hilar lymph node mediastinal lymph nodes are consistent with old granulomatous disease. No pleural effusion. The heart size is normal. There a re coronary artery calcifications. No pericardial effusion. There is no pulmonary embolus. There are changes of cholecystectomy. There is mild thoracic spondylosis. IMPRESSION: 1. No pulmonary embolus. Reviewed, dictated and finalized at location A. IMPRESSION: 1. No pulmonary embolus.
[2020-08-21 08:39] VITALS: BP 169/87; PULSE 98; RESP 14; TEMP 36.3; O2SAT 99
[2020-08-21 09:05] LABS: Basophils Percent Auto 0.4 % (0.2-1.2); Eosinophils Absolute Auto 0.1 K/mm3 (0-0.3); Eosinophils Percent Auto 0.6 % (0-4.4); Hematocrit 41.1 % (37.0-47.0); Immature Granulocyte Absolute 0.07 K/mm3 (0.00-0.031); Immature Granulocyte Percent A 0.9 % (0-0.5); Lymphocytes Absolute Auto 1.51 K/mm3 (0.9-3.2); Lymphocytes Percent Auto 18.6 % (18.3-44.2); Mean Corpuscular HGB Conc 34.1 g/dl (32-36); Mean Corpuscular Hemoglobin 31.7 pg (26-34); Mean Platelet Volume 9.1 fl (7.4-10.4); Monocytes Absolute Auto 0.8 K/mm3 (0.1-0.6); Monocytes Percent Auto 9.9 % (2.6-8.5); Neutrophils Absolute Auto 5.6 K/mm3 (1.3-6.7); Neutrophils Percent Auto 69.6 % (45.5-73.1); Platelet Count Result 459 k/mm3 (150-375); Red Blood Count 4.42 M/mm3 (4.2-5.4); Red Cell Distribution Width 13.3 % (11.5-14.5); White Blood Count 8.1 K/mm3 (4.5-10.0)
[2020-08-21 09:16] LABS: Alanine Aminotransferase 19 U/L (4-35); Albumin Level 4.5 g/dL (3.5-5.1); Alkaline Phosphatase 73 U/L (38-126); Anion Gap 11 mmol/L (8-16); Aspartate Amino Transferase 36 U/L (14-36); Bilirubin,Total 0.4 mg/dL (0.2-1.3); Blood Urea Nitrogen 11 mg/dL (7-17); Calcium 9.5 mg/dL (8.4-10.2); Carbon Dioxide 23 mmol/L (22-30); Chloride 101 mmol/L (98-107); Estimated CRCL calculation 58 ml/min; Estimated Glomerular Filt Rate > 60; Glucose 133 mg/dL (65-105); Potassium 3.1 mmol/L (3.4-5.0); Sodium 135 mmol/L (137-145)
[2020-08-21] MEDS: KETOROLAC 30 MG/ML VIAL (*BKC) IV PUSH (09:35)
[2020-08-21 09:41] LABS: INR 0.9; Prothrombin Time 12.7 Seconds (11.1-14.7)
[2020-08-21 09:42] LABS: Partial Thromboplastin Time 24.9 SECONDS (22.3-36.8)
[2020-08-21 10:54] VITALS: BP 118/83; PULSE 88; RESP 16; O2SAT 97
[2020-08-21] MEDS: MORPHINE SULFATE (*CRX) 4 MG/ML INJ IV PUSH (11:35)
[2020-08-21] MEDS: ONDANSETRON INJ 4 MG/2 ML VIAL IV PUSH (12:26)
[2020-08-21 12:31] VITALS: BP 151/77; PULSE 82; RESP 18; O2SAT 96
--- NOTE | 2020-08-21 12:44 | ED.BACK ---
HPI - Back Pain/Injury General Chief Complaint: Back Pain/Injury Stated Complaint: L side pain Time Seen by Provider: 08/21/20 08:38 History of Present Illness HPI Narrative: Patient is a 69-year-old female who presents ER with pain in her left side. Lateral to the breast. Worse with movement and breathing. No fevers or chills or sweats. Reports chronic cough and runny nose over the last year. Has history of polycythemia vera and is seeing hematology. No history of DVT/PE. No exertional component. Related Data Home Medications Medication Instructions Recorded Confirmed aspirin [Adult Low Dose Aspirin] 81 mg PO DAILY 02/13/19 02/26/20 cholecalciferol (vitamin D3) 2,000 unit PO DAILY 02/13/19 02/26/20 [Vitamin D3] fluoxetine [Prozac] 40 mg PO DAILY 02/13/19 02/26/20 calcium carbonate [Calcium 600] 1,500 mg PO DAILY 09/21/19 02/26/20 diazepam 10 mg PO DAILY PRN 09/21/19 02/26/20 potassium chloride 10 meq PO DAILY 10/17/19 02/26/20 Glucosamine Chondroitin 1 cap PO DAILY 02/26/20 02/26/20 ondansetron HCl [Zofran] 4 mg PO Q8H PRN 02/26/20 02/26/20 hydrochlorothiazide 08/21/20 Allergies Allergy/AdvReac Type Severity Reaction Status Date / Time Penicillins Allergy Severe swelling Verified 08/21/20 08:46 eyes hydrocodone AdvReac Intermediate n/v,dizzine Verified 08/21/20 08:46 ss tramadol AdvReac Intermediate n/v, Verified 08/21/20 08:46 dizziness oxycodone AdvReac Unknown n/v, Verified 08/21/20 08:46 dizziness Review of Systems Review of Systems: All systems reviewed & are unremarkable except as noted in HPI and below Constitutional: Constitutional: Denies chills and Denies fever(s) ENT: Reports nasal congestion and Denies sore throat Cardiovascular: Cardiovascular: Reports chest pain, Denies rapid heart rate and Denies radiating jaw, neck or arm pain Respiratory: Respiratory: Reports cough, Denies dyspnea and Denies wheezing Gastrointestinal: Gastrointestinal: Denies abdominal pain, Denies nausea and Denies vomiting [facility] Past Medical History Medical History (Updated 08/21/20 @ 12:51 by Mike Juan MD) Anxiety Arthritis Generalized; primarily in knees and hips Back pain Cataract Cholecystitis DDD (degenerative disc disease) Depression Diverticulosis Endometriosis GERD (gastroesophageal reflux disease) HLD (hyperlipidemia) Meniere's disease Pilonidal cyst Extracted Rectal polyp Seasonal allergies UTI (urinary tract infection) Surgical History Surgical History (Updated 02/26/20 @ 18:11 by Selena Yoo NP) History of 3 sections History of hysterectomy History of right hip replacement Hx of cholecystectomy Family History Family History (Updated 02/26/20 @ 18:13 by Selena Yoo NP) Mother Hypertension Cerebrovascular accident Hyperlipidemia Sibling Diabetes mellitus Social History Social History (Updated 02/26/20 @ 18:13 by Selena Yoo NP) Social History: The patient is and lives with her in [place]. She has 4 children. She is retired from the [employer]. She denies any alcohol tobacco or drug use. Lifelong nonsmoker. Smoking status: Never smoker Alcohol intake: never Substance use: never Gender identity (if verbalized by the patient): Female Spiritual care concerns: No Exam Narrative: Exam Narrative: GENERAL: Well-appearing, well-nourished, and in no acute distress. HEAD: Normocephalic, atraumatic. ENT: Mucous membranes moist. CHEST: Clear to auscultation. No respiratory distress. HEART: Regular rate and rhythm. Normal peripheral pulses. ABDOMEN: Soft, nontender, nondistended. EXTREMITIES: Normal range of motion. No edema. SKIN: Warm, dry, no rash. NEURO: Alert and oriented x3. PSYCH: Normal mood and affect. Course Course Emergency Course: Patient informed results. Discharge home. May have an allergy to morphine because she became itchy with redness on her neck. She was given Be
[2020-08-21] MEDS: diphenhydrAMINE HCl CAP 25 MG CAPSULE PO (13:10)
[2020-08-21 13:14] VITALS: BP 143/69; PULSE 79; RESP 14; O2SAT 97
== END 2020-08-21 13:31 | disposition home or self-care (01) ==
PROVIDERS: Emergency Provider Emergency Medicine; PCP Physician Assistant
DX: R07.89 Other chest pain (principal); F41.9 Anxiety disorder, unspecified; F32.9 Major depressive disorder, single episode, unspecified; E78.5 Hyperlipidemia, unspecified; Z79.82 Long term (current) use of aspirin
CPT/HCPCS: 36415; 71046; 71275; 80053; 85025; 85610; 85730; 96374; 96375; 99284; A9270; J1885; J2270; J2405; Q9967

== ENCOUNTER → 2020-09-06 11:00 | Outpatient (CLI) | payer MEDICARE, OTHER, SELFPAY ==
--- NOTE | ~2020-09-06 | CT_ITS ---
EXAMINATION: CT abdomen pelvis w con DATE: 09/06/2020 11:48 INDICATION: Left upper quadrant abdominal pain. Nausea. TECHNIQUE: Computed tomography (CT) of the abdomen and pelvis was performed with 100 cc Omnipaque 350 intravenous contrast. Automated exposure control and iterative reconstruction technique were employe d. Exam dose: 678.61 mGy-cm total exam DLP. COMPARISON: 03/22/2020 complete abdominal ultrasound examination CT abdomen pelvis FINDINGS: There is mild discoid atelectasis or scarring at the posterior right lung base, right lower lobe. The lung bases are clear of infiltrate or consolidation. Normal heart size. No pericardial or pleural effusion. Status post cholecystectomy. No bile duct dilatation. No hepatic, splenic, pancreatic, and adrenal space-occupying mass lesion. Stable 7 mm left renal cyst. No renal space occupying mass lesion or urinary tract calculus or hydrou reteronephrosis is noted otherwise. The urinary bladder is unremarkable. Status post hysterectomy. Normal caliber of the abdominal aorta. No intraperitoneal or retroperitoneal or pelvic mass lesion or adenopathy or ascites. No bowel obstruction, bowel wall thickening, pneumatosis or intraperitoneal free air. Normal appendix . Minimal colonic diverticulosis; no CT evidence of diverticulitis. Resolution of mild colitis of dis nati descending colon since 02/26/2020. No suspicious osteolytic or osteoblastic lesions. Status post right total hip arthroplasty. IMPRESSION: Status post cholecystectomy 7 mm stable left renal cyst Status post hysterectomy Normal appendix Minimal diverticulosis of the colon; no CT evidence of diverticulitis Reviewed, dictated and finalized at [facility]. Reviewed, dictated and finalized at location B.
[2020-09-06 11:36] LABS: Estimated Glomerular Filt Rate > 60
== END ==
PROVIDERS: PCP Physician Assistant; Visit Provider Physician Assistant
DX: R11.0 Nausea (principal); R10.12 Left upper quadrant pain; K57.90 Diverticulosis of intestine, part unspecified, without perforation or abscess without bleeding; N28.1 Cyst of kidney, acquired; Z90.49 Acquired absence of other specified parts of digestive tract; Z90.710 Acquired absence of both cervix and uterus
CPT/HCPCS: 74177; Q9967

== ENCOUNTER 2020-10-22 05:33 | Emergency (ER) | payer MEDICARE, OTHER, SELFPAY ==
--- NOTE | ~2020-10-22 | US_ITS ---
EXAMINATION: US venous doppler [facility] DATE: 10/22/2020 07:58 INDICATION: Bilateral lower limb pain and swelling TECHNIQUE: Zuluaga scale images without and with compression and Doppler images of the bilateral lower e xtremity veins were obtained. COMPARISON: 03/17/2019 FINDINGS: There is thrombosis of the bilateral greater saphenous veins The right common femoral vein, profunda femoral vein, femoral vein, popliteal vein, peroneal trunk, p osterior tibial veins are patent. The left common femoral vein, profunda femoral vein, femoral vein, popliteal vein, peroneal trunk, po sterior tibial veins are patent. IMPRESSION: 1. No evidence of deep venous thrombosis. Thrombosis of the superficial greater saphenous veins. Reviewed, dictated and finalized at location A.
--- NOTE | ~2020-10-22 | XR_ITS ---
EXAMINATION: XR foot RT min 3V DATE: 10/22/2020 06:30 INDICATION: Right foot pain and swelling TECHNIQUE: Dorsoplantar, lateral, and 2 oblique views of the right foot were obtained. COMPARISON: None. FINDINGS: There is no fracture, dislocation, or subluxation. There is mild osteoarthritis of multiple interphalangeal joints and at the first metatarsophalangeal joint. Calcified atherosclerosis is note d. The soft tissues are unremarkable. IMPRESSION: 1. No acute osseous abnormality. Reviewed, dictated and finalized at location A.
[2020-10-22 05:40] VITALS: BP 161/79; PULSE 93; RESP 18; TEMP 37.3; O2SAT 96
--- NOTE | 2020-10-22 06:41 | ED.LOWEXIN ---
HPI - Extremity Injury (Lower) General Chief Complaint: Extremity Injury, Lower <Mike Juan MD - Last Filed: 10/22/20 06:49> Stated Complaint: bilat leg pain <Mike Juan MD - Last Filed: 10/22/20 06:49> Time Seen by Provider: 10/22/20 05:53 <Mike Juan MD - Last Filed: 10/22/20 06:49> History of Present Illness HPI Narrative: Patient is a 69-year-old female who presents ER with concerns regarding pain in her calves bilaterally. She reports she has been having some plantar fascia pain in her right foot and has been using tennis ball exercises. She then developed little swelling over the midfoot near the second metatarsal. Its slightly red. No known trauma. She then started developing pain that went into her right calf. She also has a palpable cord along the medial aspect of her right calf. Patient also has bruising noted to the kirkpatrick on the left side is reporting posterior calf pain as well. No swelling to the left foot. Patient reports history of polycythemia vera and has been told by her oncologist that she could be at increased risk of developing a blood clot. She denies any chest pain or chest pressure. She has no shortness of breath. <Mike Juan MD - Last Filed: 10/22/20 06:49> Related Data Home Medications: Home Medications Medication Instructions Recorded Confirmed aspirin [Adult Low Dose Aspirin] 81 mg PO DAILY 02/13/19 09/09/20 cholecalciferol (vitamin D3) 2,000 unit PO DAILY 02/13/19 09/09/20 [Vitamin D3] calcium carbonate [Calcium 600] 1,500 mg PO DAILY 09/21/19 09/09/20 diazepam 10 mg PO DAILY PRN 09/21/19 09/09/20 potassium chloride 10 meq PO DAILY 10/17/19 09/09/20 Glucosamine Chondroitin 1 cap PO DAILY 02/26/20 09/09/20 ondansetron HCl [Zofran] 4 mg PO Q8H PRN 02/26/20 09/09/20 hydrochlorothiazide 08/21/20 09/09/20 <Mike Juan MD - Last Filed: 10/22/20 06:49> Allergies/Adverse Reactions: Allergies Allergy/AdvReac Type Severity Reaction Status Date / Time Penicillins Allergy Severe swelling Verified 10/22/20 05:46 eyes hydrocodone AdvReac Intermediate n/v,dizzine Verified 10/22/20 05:46 ss tramadol AdvReac Intermediate n/v, Verified 10/22/20 05:46 dizziness oxycodone AdvReac Unknown n/v, Verified 10/22/20 05:46 dizziness <Mike Juan MD - Last Filed: 10/22/20 06:49> Review of Systems Review of Systems: All systems reviewed & are unremarkable except as noted in HPI and below <Mike Juan MD - Last Filed: 10/22/20 06:49> Constitutional: Constitutional: Denies chills, Denies fever(s) and Denies weakness <Mike Juan MD - Last Filed: 10/22/20 06:49> Cardiovascular: Cardiovascular: Denies chest pain and Denies radiating jaw, neck or arm pain <Mike Juan MD - Last Filed: 10/22/20 06:49> Respiratory: Respiratory: Denies cough, Denies dyspnea and Denies wheezing <Mike Juan MD - Last Filed: 10/22/20 06:49> Musculoskeletal: Musculoskeletal: Denies arthralgias, Reports joint swelling and Reports muscle cramps <Mike Juan MD - Last Filed: 10/22/20 06:49> Integumentary/Breasts: Skin/Breast: Denies rash <Mike Juan MD - Last Filed: 10/22/20 06:49> Hematologic/Lymphatic: Hematologic/Lymphatic: Reports easy bruising <Mike Juan MD - Last Filed: 10/22/20 06:49> [facility] Past Medical History Medical History: Medical History Anxiety Arthritis Generalized; primarily in knees and hips Back pain Cataract Cholecystitis DDD (degenerative disc disease) Depression Diverticulosis Endometriosis GERD (gastroesophageal reflux disease) HLD (hyperlipidemia) Meniere's disease Pilonidal cyst Extracted Rectal polyp Seasonal allergies UTI (urinary tract infection) <Mike Juan MD - Last Filed: 10/22/20 06:49> Surgical History Surgical History: Surgical History (Updated 02/26/20 @ 18:1
[2020-10-22 08:05] VITALS: BP 131/75; PULSE 81; RESP 12; O2SAT 98
[2020-10-22 08:45] VITALS: BP 106/73; PULSE 74; RESP 12; O2SAT 96
[2020-10-22 09:30] VITALS: BP 121/77; PULSE 99; RESP 16; O2SAT 98
== END 2020-10-22 09:30 | disposition home or self-care (01) ==
PROVIDERS: Emergency Provider Emergency Medicine; PCP Physician Assistant
DX: I80.03 Phlebitis and thrombophlebitis of superficial vessels of lower extremities, bilateral (principal); F41.9 Anxiety disorder, unspecified; F32.9 Major depressive disorder, single episode, unspecified; E78.5 Hyperlipidemia, unspecified; H81.09 Meniere's disease, unspecified ear; Z79.82 Long term (current) use of aspirin; Z79.899 Other long term (current) drug therapy
CPT/HCPCS: 73630; 93970; 99284

== ENCOUNTER 2020-11-30 11:31 | Outpatient (CLI) | payer MEDICARE, OTHER, SELFPAY ==
--- NOTE | ~2020-11-30 | XR_ITS ---
EXAMINATION: XR hip LT 2V w AP pelvis DATE: 11/30/2020 11:55 INDICATION: Osteopenia TECHNIQUE: Anteroposterior view of the pelvis and anteroposterior and frog-leg lateral views of the l eft hip were obtained. COMPARISON: None. FINDINGS: Noncemented right total hip arthroplasty which is in near-anatomic alignment with no surrounding luce ncy to suggest loosening. No fracture. No suspected avascular necrosis at the left femoral head. Mild left hip and bilateral sacroiliac osteoarthritis. Moderate lumbar spondylosis. Multiple phleboliths in the pelvis. IMPRESSION: 1. Degenerative skeletal changes as detailed above including mild left hip osteoarthritis. No acute o sseous abnormality. Reviewed, dictated and finalized at location A. IMPRESSION: 1. Degenerative skeletal changes as detailed above including mild left hip oste oarthritis. No acute osseous abnormality.
== END 2020-11-30 11:32 | disposition home or self-care (01) ==
LOC: ANHIMG 11:38
PROVIDERS: PCP Physician Assistant; Visit Provider Family Medicine
DX: M85.80 Other specified disorders of bone density and structure, unspecified site (principal)
CPT/HCPCS: 73502

== ENCOUNTER 2020-12-13 13:03 | Emergency (ER) | payer MEDICARE, OTHER, SELFPAY ==
[2020-12-13 13:18] VITALS: BP 151/76; PULSE 84; RESP 18; TEMP 36.2; O2SAT 99
--- NOTE | 2020-12-13 13:48 | ED.GENADULT ---
HPI - General Adult General Chief complaint: Urogenital-Female Stated complaint: UTI History of Present Illness HPI narrative: Patient is a 70-year-old female who presents to the [facility] via POV for evaluation of urinary symptoms that began 1 week ago. Additionally, she reports bilateral flank pain, urinary urgency, urinary frequency, and dysuria. Cranberry tablets provide minimal relief. Nothing improves or worsen symptoms. She reports she had a yeast infection 1 week ago, used Monistat and symptoms resolved. Other symptoms remain prompting today's visit. Denies a history of renal insufficiency and diabetes mellitus Related Data Home Medications Medication Instructions Recorded Confirmed Glucosamine Chondroitin 1 cap PO DAILY 02/26/20 09/09/20 ondansetron HCl [Zofran] 4 mg PO Q8H PRN 02/26/20 09/09/20 hydrochlorothiazide 08/21/20 09/09/20 esomeprazole magnesium 40 mg PO DAILY 12/13/20 12/13/20 fluoxetine 40 mg PO DAILY 12/13/20 12/13/20 meloxicam 15 mg PO DAILY 12/13/20 12/13/20 Allergies Allergy/AdvReac Type Severity Reaction Status Date / Time Penicillins Allergy Severe swelling Verified 12/13/20 13:33 eyes hydrocodone AdvReac Intermediate n/v,dizzine Verified 12/13/20 13:33 ss tramadol AdvReac Intermediate n/v, Verified 12/13/20 13:33 dizziness oxycodone AdvReac Unknown n/v, Verified 12/13/20 13:33 dizziness Review of Systems Review of Systems: Denies history of urinary tract infections, pyelonephritis, and renal calculi. Pertinent negatives: fever, chills, sweats, change in appetite, poor p.o. intake, malaise, recent weight loss, myalgias, lymphadenopathy, headache, dizziness, STD exposure, painful intercourse, abdominal pain, constipation, nausea, vomiting, diarrhea, abdominal cramping, hematuria, urinary incontinence, vaginal bleeding/discharge, penile drainage, testicular pain, shortness of breath, chest pain, and heart palpitations/murmurs. [facility] Past Medical History Medical History Anxiety Arthritis Generalized; primarily in knees and hips Back pain Cataract Cholecystitis DDD (degenerative disc disease) Depression Diverticulosis Endometriosis GERD (gastroesophageal reflux disease) HLD (hyperlipidemia) Meniere's disease Pilonidal cyst Extracted Rectal polyp Seasonal allergies UTI (urinary tract infection) Surgical History Surgical History History of 3 sections History of hysterectomy History of right hip replacement Hx of cholecystectomy Family History Family History Mother Hypertension Cerebrovascular accident Hyperlipidemia Sibling Diabetes mellitus Social History Social History Social History: The patient is and lives with her in [place]. She has 4 children. She is retired from the [employer]. She denies any alcohol tobacco or drug use. Lifelong nonsmoker. Smoking status: Never smoker Alcohol intake: never Substance use: never Gender identity (if verbalized by the patient): Female Spiritual care concerns: No Comments I have reviewed and agree with the patient's past medical, surgical, social, and family hx as documented by the RN. There is no relevant family history pertinent to the presenting complaint. Exam Narrative: GENERAL: Well-appearing, well-nourished, and in no acute distress. HEAD: Normocephalic, atraumatic. NECK: Supple. No lymphadenopathy or nuchal rigidity. CHEST: Lung sounds are clear to auscultation in bilateral lung nieto. No respiratory distress. HEART: Regular rate and rhythm. No murmur, gallop, or rub heard. ABDOMEN: Soft, non-tender, non-distended, normal active bowel sounds in all quadrants. No guarding. No rebound tenderness. No pulsatile or palpable
== END 2020-12-13 14:14 | disposition home or self-care (01) ==
PROVIDERS: Emergency Provider Nurse Practitioner Family; PCP Physician Assistant
DX: N39.0 Urinary tract infection, site not specified (principal); M17.0 Bilateral primary osteoarthritis of knee; M16.0 Bilateral primary osteoarthritis of hip; N80.9 Endometriosis, unspecified; K21.9 Gastro-esophageal reflux disease without esophagitis; E78.5 Hyperlipidemia, unspecified; F41.9 Anxiety disorder, unspecified; H26.9 Unspecified cataract; Z96.641 Presence of right artificial hip joint
CPT/HCPCS: 81003; 87077; 87086; 87186; 99213; G0463

== ENCOUNTER → 2021-02-11 08:54 | Outpatient (CLI) | payer MEDICARE, OTHER, SELFPAY ==
--- NOTE | ~2021-02-11 | CT_ITS ---
EXAMINATION: CT brain wo con DATE: 02/11/2021 09:15 INDICATION: Tremor. Syncope. Headache. TECHNIQUE: Computed tomography (CT) of the head was performed without intravenous contrast. The dose- length product was 599.57 mGy-cm. Automated exposure control and iterative reconstruction technique w ere employed. COMPARISON: CT dated 12/31/2018 FINDINGS: No acute intracranial hemorrhage, infarction, mass or mass effect. There are scattered mild periventricular and subcortical white matter changes, most likely related to small vessel ischemic d isease (microangiopathy). No acute intracranial hemorrhage, infarction, mass or mass effect. No ventr iculomegaly or midline shift. Small air-fluid level right sphenoid sinus consistent with sinus diseas e. Mastoids are pneumatized. No depressed skull fractures. IMPRESSION: 1. No acute intracranial abnormality. 2: Chronic age-related findings. 3: Mild chronic right sphenoid sinus disease. Reviewed, dictated and finalized at location A. ED CLOTH TAPER
== END ==
PROVIDERS: PCP Physician Assistant; Visit Provider Physician Assistant
DX: R25.1 Tremor, unspecified (principal); R55 Syncope and collapse; R51.9 Headache, unspecified
CPT/HCPCS: 70450

== ENCOUNTER → 2021-03-24 12:20 | Outpatient (CLI) | payer MEDICARE, OTHER, SELFPAY ==
--- NOTE | ~2021-03-24 | US_ITS ---
EXAMINATION: US renal BI DATE: 03/24/2021 13:04 INDICATION: Left kidney cyst. TECHNIQUE: Multiple ultrasound grayscale images of the kidneys were obtained. COMPARISON: CT abdomen and pelvis 09/06/2020 FINDINGS: The right kidney measures 8.5 x 4.3 x 4.7 cm. The left kidney measures 10.2 x 4.9 x 4.7 cm. The kidne ys demonstrate normal parenchymal echogenicity. There is cortical thinning of the kidneys. There is n o hydronephrosis. The bladder is normal. IMPRESSION: 1. Mild atrophy of the kidneys. No hydronephrosis. 2. No kidney cyst identified. Reviewed, dictated and finalized at location A. E OPERATOR
== END ==
PROVIDERS: Visit Provider Physician Assistant
DX: N28.1 Cyst of kidney, acquired (principal); N26.1 Atrophy of kidney (terminal)
CPT/HCPCS: 76775

== ENCOUNTER → 2021-04-15 10:59 | Outpatient (CLI) | payer MEDICARE, OTHER, SELFPAY ==
--- NOTE | ~2021-04-15 | XR_ITS ---
EXAMINATION: XR hand RT 2V INDICATION: Polyarthralgia TECHNIQUE: Two views of the right hand are obtained. COMPARISON: None available FINDINGS: There is no fracture, dislocation, or subluxation. Moderate osteoarthritis is noted in mult iple interphalangeal joints. There is calcified atherosclerosis. IMPRESSION: 1. Polyarticular osteoarthritis. Reviewed, dictated and finalized at location F. SHER WALLBOARD AND PLASTERBOARD
--- NOTE | ~2021-04-15 | XR_ITS ---
EXAMINATION: XR sacroiliac joints min 3V INDICATION: Polyarthralgia, chronic sacroiliac joint pain TECHNIQUE: Three views of the sacroiliac joints are obtained. COMPARISON: 11/30/2020 FINDINGS: Bone alignment is normal. There is no fracture. Changes of right total hip arthroplasty are noted. There is no abnormal sclerosis or erosion. Phleboliths are noted in the pelvis. IMPRESSION: 1. Unremarkable sacroiliac joints. Reviewed, dictated and finalized at location F. OLE COMPRESSOR
--- NOTE | ~2021-04-15 | XR_ITS ---
EXAMINATION: XR hand LT 2V INDICATION: Left hand pain TECHNIQUE: Two views of the left hand are obtained. COMPARISON: None available FINDINGS: There is no fracture, dislocation, or subluxation. Moderate osteoarthritis is noted in mult iple interphalangeal joints. Calcified atherosclerosis is present. IMPRESSION: 1. Polyarticular osteoarthritis. Reviewed, dictated and finalized at location F. ICAL CYTOGENETICIST
== END ==
PROVIDERS: PCP Physician Assistant; Visit Provider Physician Assistant
DX: M19.042 Primary osteoarthritis, left hand (principal); M19.041 Primary osteoarthritis, right hand; M53.3 Sacrococcygeal disorders, not elsewhere classified
CPT/HCPCS: 72202; 73120

== ENCOUNTER 2021-05-23 12:57 | Emergency (ER) | payer MEDICARE, OTHER, SELFPAY ==
[2021-05-23 13:08] VITALS: BP 160/82; PULSE 86; RESP 20; TEMP 36.7; O2SAT 99
--- NOTE | 2021-05-23 13:17 | ED.FEMALEGU ---
HPI - Female Genitourinary General Chief complaint: Urogenital-Female Stated complaint: uti Time Seen by Provider: 05/23/21 13:18 Source: patient and RN notes reviewed Mode of arrival: ambulatory Limitations: no limitations History of Present Illness HPI Narrative: 70-year-old female presents with concern for a day duration of dysuria, urgency, frequency, bilateral low back pain, nausea. Reports taking Azo with no relief. She denies fever, vomiting, hematuria. MD elicited complaint: UTI Related Data Home Medications Medication Instructions Recorded Confirmed Glucosamine Chondroitin 1 cap PO DAILY 02/26/20 05/23/21 esomeprazole magnesium 40 mg PO DAILY 12/13/20 05/23/21 fluoxetine 40 mg PO DAILY 12/13/20 05/23/21 meloxicam 15 mg PO DAILY 12/13/20 05/23/21 ciclopirox 1 applic TOPICAL DIRECTED 05/23/21 05/23/21 diclofenac sodium 75 mg PO DAILY 05/23/21 05/23/21 fluticasone propionate 50 mcg INTRANASAL DAILY 05/23/21 05/23/21 nabumetone 500 mg PO DIRECTED 05/23/21 05/23/21 triamterene-hydrochlorothiazid 1 tablet PO DAILY 05/23/21 05/23/21 venlafaxine 37.5 mg PO DAILY 05/23/21 05/23/21 Allergies Allergy/AdvReac Type Severity Reaction Status Date / Time Penicillins Allergy Severe swelling Verified 05/23/21 13:03 eyes hydrocodone AdvReac Intermediate n/v,dizzine Verified 05/23/21 13:03 ss tramadol AdvReac Intermediate n/v, Verified 05/23/21 13:03 dizziness oxycodone AdvReac Unknown n/v, Verified 05/23/21 13:03 dizziness Review of Systems Review of Systems: CONSTITUTIONAL: Denies malaise, chills, sweats, or fever. CARDIOVASCULAR: Denies chest pain, palpitations, or edema. RESPIRATORY: Denies cough or dyspnea. GASTROINTESTINAL: Denies abdominal pain, nausea, vomiting, diarrhea GENITOURINARY: Reports dysuria, frequency, urgency, flank pain. Denies suprapubic pressure or hematuria. SKIN: Denies rash or itching. MUSCULOSKELETAL: Denies back pain or myalgia. All systems reviewed & are unremarkable except as noted in HPI and below PMFSH Past Medical History Medical History Anxiety Arthritis Generalized; primarily in knees and hips Back pain Cataract Cholecystitis DDD (degenerative disc disease) Depression Diverticulosis Endometriosis GERD (gastroesophageal reflux disease) HLD (hyperlipidemia) Meniere's disease Pilonidal cyst Extracted Rectal polyp Seasonal allergies UTI (urinary tract infection) Surgical History Surgical History History of 3 sections History of hysterectomy History of right hip replacement Hx of cholecystectomy Family History Family History Mother Hypertension Cerebrovascular accident Hyperlipidemia Sibling Diabetes mellitus Social History Social History Social History: The patient is and lives with her in [place]. She has 4 children. She is retired from the [employer]. She denies any alcohol tobacco or drug use. Lifelong nonsmoker. Smoking status: Never smoker Alcohol intake: never Substance use: never Gender identity (if verbalized by the patient): Female Spiritual care concerns: No Comments At time of signature, agree with nursing past medical, surgical, social and family history. There is no relevant family history pertinent to the presenting complaint Exam Narrative: GENERAL: Well-appearing, well-nourished, and in no acute distress. HEAD: Normocephalic. EYES: PERRLA, conjunctivae clear. NECK: Supple. No lymphadenopathy CHEST: Clear to auscultation. No respiratory distress. HEART: Regular rate and rhythm. ABDOMEN: Soft, nontender upon palpation, nondistended, normal active bowel sounds, no palpable or pulsatile masses, no guarding. No CVA tenderness SKIN: Warm, dry, no rash.
== END 2021-05-23 13:27 | disposition home or self-care (01) ==
PROVIDERS: Emergency Provider Nurse Practitioner; PCP Physician Assistant
DX: R30.0 Dysuria (principal); R39.15 Urgency of urination; R35.0 Frequency of micturition; M54.50 Low back pain, unspecified; F41.9 Anxiety disorder, unspecified; M16.0 Bilateral primary osteoarthritis of hip; M17.0 Bilateral primary osteoarthritis of knee; F32.A Depression, unspecified; N80.9 Endometriosis, unspecified; K21.9 Gastro-esophageal reflux disease without esophagitis; E78.5 Hyperlipidemia, unspecified; Z96.641 Presence of right artificial hip joint
CPT/HCPCS: 81003; 87086; 99213; G0463

== ENCOUNTER 2021-06-06 16:06 | Emergency (ER) | payer MEDICARE, OTHER, SELFPAY ==
[2021-06-06] VITALS (11 sets, daily range): BP systolic 148–186; BP diastolic 84–109; PULSE 107; RESP 16; TEMP 36.6; O2SAT 97–99
--- NOTE | ~2021-06-06 | XR_ITS ---
XR forearm RT 2V DATE: 06/06/2021 17:41 INDICATION: Fall today. Right forearm injury, pain TECHNIQUE: AP and lateral views COMPARISON: None FINDINGS: No fracture or dislocation, periosteal reaction or bone destruction. Normal alignment at th e elbow and wrist joints. There is mild to moderate osteopenia. IMPRESSION: No fracture or dislocation Reviewed, dictated and finalized at location A. IMPRESSION: No fracture or dislocation
--- NOTE | ~2021-06-06 | XR_ITS ---
XR chest 2V DATE: 06/06/2021 17:39 INDICATION: Mid chest pain TECHNIQUE: PA and lateral views COMPARISON: 08/21/2020 CT pulmonary scan 08/21/2020 PA and lateral chest FINDINGS: Normal heart size. Mild aortic calcification and tortuosity. No pulmonary infiltrate or consolidation, pleural effusion or pulmonary vascular congestion or pneumo thorax. Surgical clips, right upper quadrant, consistent with cholecystectomy. Diffuse osteopenia. IMPRESSION: No active cardiopulmonary disease Reviewed, dictated and finalized at location A.
--- NOTE | ~2021-06-06 | CT_ITS ---
EXAMINATION: CT brain wo con DATE: 06/06/2021 17:19 INDICATION: Ground-level fall. Right sided forehead tenderness, headache. Neck pain. TECHNIQUE: Computed tomography (CT) of the head was performed without intravenous contrast. The mA wa s adjusted according to patient size. Iterative reconstruction technique was employed. Exam dose: 60 5.33 mGy-cm total exam DLP. COMPARISON: 02/11/2021 CT brain FINDINGS: Vertebral and carotid siphon internal carotid artery calcification. There is nonspecific di minished attenuation of the cerebral white matter, likely due to chronic small vessel ischemic change s. No intracranial mass lesion or hemorrhage or cerebrovascular accident is evident. No midline shift or mass effect. There is moderate cerebral volume loss, predominating in the frontal regions. No subdural or epidural hematoma. Included mastoid air cells and paranasal sinuses are normally developed and aerated. No fracture or bone destruction of the cranial vault. IMPRESSION: Cerebral atherosclerosis and chronic small vessel ischemic changes of the cerebral white matter No acute intracranial finding or skull fracture Reviewed, dictated and finalized at Location A. Reviewed, dictated and finalized at location A.
--- NOTE | ~2021-06-06 | XR_ITS ---
XR knee RT min 4V DATE: 06/06/2021 17:39 INDICATION: Fall today. Right knee generalized pain TECHNIQUE: 4 views COMPARISON: None FINDINGS: There is mild chondrocalcinosis at the medial and lateral compartments. There is mild loss of joint space height and particularly spurring at the medial compartment. There i s periarticular spurring at the patellofemoral compartment. Osteopenia. No fracture or dislocation or joint effusion, periosteal reaction or bone destruction or radiopaque i ntra-articular loose body is noted. Arterial calcifications. IMPRESSION: Osteopenia Mild chondrocalcinosis Moderate osteoporosis of the medial and patellofemoral compartments Reviewed, dictated and finalized at location A.
--- NOTE | ~2021-06-06 | CT_ITS ---
EXAMINATION: CT cervical spine wo con DATE: 06/06/2021 17:19 INDICATION: Ground-level fall. Neck pain. TECHNIQUE: Computed tomography (CT) of the cervical spine was performed without intravenous contrast. Automated exposure control and iterative reconstruction technique were employed. Exam dose: 293.91 mGy-cm total exam DLP. COMPARISON: None FINDINGS: There is reversal of cervical curvature. C1 and C2 are normally aligned and the odontoid process is intact. No fracture or dislocation or lock ed facet is evident. No prevertebral soft tissue swelling. There is moderately severe degenerative disease at C5-6 and C6-7 with mild to moderate degenerative d isease of the remainder of the cervical spine.. Degenerative changes apophyseal joints. Prominent uncovertebral joint spurring on the right at C4-5 a nd bilaterally at C5-6 and C6-7. IMPRESSION: Reversal cervical curvature Cervical spondylosis, especially at C5-6 and C6-7 Reviewed, dictated and finalized at Location A. Reviewed, dictated and finalized at location A.
--- NOTE | ~2021-06-06 | XR_ITS ---
XR hip RT 2V w AP pelvis DATE: 06/06/2021 17:40 INDICATION: Fall today. Generalized right hip pain. TECHNIQUE: AP pelvis. AP and lateral views of right hip COMPARISON: 12/10/2020 pelvis and left FINDINGS: There is osteopenia. There is mild lumbar dextroscoliosis. There is degenerative disc disease at L3-4, L4-5 and L5-S1. Diffuse osteopenia. Status post right total hip arthroplasty. Normal alignment at the pubic symphysis and sacroiliac joints. There is mild to moderate left hip osteoarthritis. No pelvic fracture or bone destruction. No fracture or dislocation of the right hip. IMPRESSION: Degenerative disc disease and mild dextro scoliosis of the lumbar spine Osteopenia Status post right hip arthroplasty Mild to moderate left hip osteoarthritis No pelvic or right hip fracture or dislocation Reviewed, dictated and finalized at location A. IMPRESSION: Degenerative disc disease and mild dextro scoliosis of the lumbar s pine Osteopenia Status post right hip arthroplasty Mild to moderate left hip osteoarthritis No pelvic or right hip fracture or dislocation
--- NOTE | 2021-06-06 16:25 | ECG_ITS ---
Measurements Intervals [place] Rate: 107 P: 18 RI: 132 QRS: 12 QRSD: 92 T: 31 QT: 340 QTc: 454 Interpretive Statements SINUS TACHYCARDIA POSSIBLE INFERIOR MYOCARDIAL INFARCTION , PROBABLY OLD [30 ms Q WAVE IN II/aVF] ABNORMAL ECG COMPARED TO ECG 02/12/2020 06:32:40 SINUS TACHYCARDIA NOW PRESENT Electronically Signed On 06-07-2021 11:41:12 CDT by Mak Hutton M.D.
--- NOTE | 2021-06-06 17:06 | ED.FALL ---
HPI - Fall General Chief Complaint: Fall <Rosa Richmond MD - Last Filed: 06/06/21 19:19> Stated Complaint: cp/fall <Rosa Richmond MD - Last Filed: 06/06/21 19:19> Time Seen by Provider: 06/06/21 16:31 <Rosa Richmond MD - Last Filed: 06/06/21 19:19> Source: patient, RN notes reviewed and old records reviewed <Rosa Richmond MD - Last Filed: 06/06/21 19:19> Mode of arrival: ambulatory <Rosa Richmond MD - Last Filed: 06/06/21 19:19> Limitations: no limitations <Rosa Richmond MD - Last Filed: 06/06/21 19:19> History of Present Illness HPI Narrative: This is a 70 year old female with history of anxiety, depression, hypertension , arthritis who presents for evaluation after a fall. PAtient states earlier today she [facility] [employer] She fell onto her right side, and she suffered wound to her arm, right knee pain and right hip pain. Patient states she was initially having trouble getting up so they called her . PAtient states she tried to lay down at home and she developed midsternal chest pressure. This pressure is intermittent, nonradiating. She reports it is worse with supine position. Patient is unsure if she hit her head but she has soreness to right forehead. She also reporting dizziness now. Patient takes aspirin occasionally. Patient is complaining of pain everywhere. She is complaining of neck pain and rib pain. <Rosa Richmond MD - Last Filed: 06/06/21 19:19> Related Data Home Medications: Home Medications Medication Instructions Recorded Confirmed Glucosamine Chondroitin 1 cap PO DAILY 02/26/20 05/23/21 esomeprazole magnesium 40 mg PO DAILY 12/13/20 05/23/21 fluoxetine 40 mg PO DAILY 12/13/20 05/23/21 meloxicam 15 mg PO DAILY 12/13/20 05/23/21 ciclopirox 1 applic TOPICAL DIRECTED 05/23/21 05/23/21 diclofenac sodium 75 mg PO DAILY 05/23/21 05/23/21 fluticasone propionate 50 mcg INTRANASAL DAILY 05/23/21 05/23/21 nabumetone 500 mg PO DIRECTED 05/23/21 05/23/21 triamterene-hydrochlorothiazid 1 tablet PO DAILY 05/23/21 05/23/21 venlafaxine 37.5 mg PO DAILY 05/23/21 05/23/21 <Rosa Richmond MD - Last Filed: 06/06/21 19:19> Allergies/Adverse Reactions: Allergies Allergy/AdvReac Type Severity Reaction Status Date / Time Penicillins Allergy Severe swelling Verified 06/06/21 16:33 eyes tramadol AdvReac Intermediate n/v, Verified 06/06/21 16:33 dizziness oxycodone AdvReac Unknown n/v, Verified 06/06/21 16:33 dizziness <Rosa Richmond MD - Last Filed: 06/06/21 19:19> Review of Systems Review of Systems: All systems reviewed & are unremarkable except as noted in HPI and below <Rosa Richmond MD - Last Filed: 06/06/21 19:19> [facility] Past Medical History Medical History: Medical History Anxiety Arthritis Generalized; primarily in knees and hips Back pain Cataract Cholecystitis DDD (degenerative disc disease) Depression Diverticulosis Endometriosis GERD (gastroesophageal reflux disease) HLD (hyperlipidemia) Meniere's disease Pilonidal cyst Extracted Rectal polyp Seasonal allergies UTI (urinary tract infection) <Rosa Richmond MD - Last Filed: 06/06/21 19:19> Surgical History Surgical History: Surgical History History of 3 sections History of hysterectomy History of right hip replacement Hx of cholecystectomy <Rosa Richmond MD - Last Filed: 06/06/21 19:19> Family History Family History: Family History Mother Hypertension Cerebrovascular accident Hyperlipidemia Sibling Diabetes mellitus <Rosa Richmond MD - Last Filed: 06/06/21 19:19> Social History Social History: Social History Social History: The patient i
[2021-06-06 17:59] LABS: Basophils Percent Auto 0.1 % (0.2-1.2); Hematocrit 40.3 % (37.0-47.0); Hemoglobin 13.1 g/dL (12.0-15.0); Immature Granulocyte Absolute 0.03 K/mm3 (0.00-0.031); Immature Granulocyte Percent A 0.4 % (0-0.5); Lymphocytes Absolute Auto 0.36 K/mm3 (0.9-3.2); Lymphocytes Percent Auto 4.7 % (18.3-44.2); Mean Corpuscular HGB Conc 32.5 g/dl (32-36); Mean Corpuscular Hemoglobin 31.3 pg (26-34); Mean Corpuscular Volume 96.4 fl (80-100); Mean Platelet Volume 8.9 fl (7.4-10.4); Monocytes Percent Auto 0.5 % (2.6-8.5); Neutrophils Absolute Auto 7.1 K/mm3 (1.3-6.7); Neutrophils Percent Auto 94.3 % (45.5-73.1); Platelet Count Result 485 k/mm3 (150-375); Red Blood Count 4.18 M/mm3 (4.2-5.4); Red Cell Distribution Width 12.9 % (11.5-14.5); White Blood Count 7.6 K/mm3 (4.5-10.0)
[2021-06-06 18:10] LABS: Partial Thromboplastin Time 25.5 SECONDS (22.3-36.8); Prothrombin Time 12.9 Seconds (11.1-14.7)
[2021-06-06] MEDS: TETANUS,DIPHTHERIA,AC PERTUSSIS ADULT (0.5 ML) BOOSTRIX IM (18:11)
[2021-06-06] MEDS: KETOROLAC 15 MG/ML VIAL (*BKC) IV PUSH (18:11)
[2021-06-06 18:19] LABS: Albumin Level 4.2 g/dL (3.5-5.1); Alkaline Phosphatase 95 U/L (38-126); Anion Gap 12 mmol/L (8-16); Aspartate Amino Transferase 35 U/L (14-36); Bilirubin,Total 0.2 mg/dL (0.2-1.3); Blood Urea Nitrogen 13 mg/dL (7-17); Carbon Dioxide 21 mmol/L (22-30); Chloride 102 mmol/L (98-107); Estimated CRCL calculation 50 ml/min; Estimated Glomerular Filt Rate > 60; Glucose 255 mg/dL (65-110); Lipase 168 U/L (23-300); Potassium 3.8 mmol/L (3.4-5.0); Sodium 135 mmol/L (137-145)
[2021-06-06 18:21] LABS: Troponin I < 0.012 ng/mL (0.000-0.034)
[2021-06-06 18:35] LABS: Alanine Aminotransferase 30 U/L (4-35)
[2021-06-06 20:49] LABS: Troponin I < 0.012 ng/mL (0.000-0.034)
== END 2021-06-06 22:50 | disposition home or self-care (01) ==
PROVIDERS: General Practice; Emergency Provider Emergency Medicine; PCP Physician Assistant
DX: S51.801A Unspecified open wound of right forearm, initial encounter (principal); S09.90XA Unspecified injury of head, initial encounter; S70.01XA Contusion of right hip, initial encounter; S80.01XA Contusion of right knee, initial encounter; R07.9 Chest pain, unspecified; Z23 Encounter for immunization; E78.5 Hyperlipidemia, unspecified; K21.9 Gastro-esophageal reflux disease without esophagitis; F41.9 Anxiety disorder, unspecified; F32.A Depression, unspecified; H81.09 Meniere's disease, unspecified ear; M15.0 Primary generalized (osteo)arthritis; Z87.19 Personal history of other diseases of the digestive system; Z87.442 Personal history of urinary calculi; Z96.641 Presence of right artificial hip joint; R00.0 Tachycardia, unspecified; R94.31 Abnormal electrocardiogram [ECG] [EKG]; I67.2 Cerebral atherosclerosis; M47.812 Spondylosis without myelopathy or radiculopathy, cervical region; M85.88 Other specified disorders of bone density and structure, other site; M11.261 Other chondrocalcinosis, right knee; M81.0 Age-related osteoporosis without current pathological fracture; H26.9 Unspecified cataract; W19.XXXA Unspecified fall, initial encounter
CPT/HCPCS: 36415; 70450; 71046; 72125; 73090; 73502; 73564; 80053; 83690; 84484; 85025; 85610; 85730; 90471; 90715; 93005; 96365; 96375; 99284; J0131; J1885

== ENCOUNTER 2021-08-07 11:06 | Outpatient (CLI) | payer MEDICARE, OTHER, SELFPAY ==
[2021-08-07 11:40] LABS: Basophils Percent Auto 0.4 % (0.2-1.2); Eosinophils Percent Auto 0.6 % (0-4.4); Hematocrit 37.6 % (37.0-47.0); Hemoglobin 12.7 g/dL (12.0-15.0); Immature Granulocyte Absolute 0.06 K/mm3 (0.00-0.031); Immature Granulocyte Percent A 0.8 % (0-0.5); Lymphocytes Absolute Auto 1.37 K/mm3 (0.9-3.2); Lymphocytes Percent Auto 19.1 % (18.3-44.2); Mean Corpuscular HGB Conc 33.8 g/dl (32-36); Mean Corpuscular Hemoglobin 31.6 pg (26-34); Mean Corpuscular Volume 93.5 fl (80-100); Mean Platelet Volume 9.4 fl (7.4-10.4); Monocytes Absolute Auto 0.7 K/mm3 (0.1-0.6); Neutrophils Percent Auto 70.1 % (45.5-73.1); Platelet Count Result 476 k/mm3 (150-375); Red Blood Count 4.02 M/mm3 (4.2-5.4); Red Cell Distribution Width 13.1 % (11.5-14.5); White Blood Count 7.2 K/mm3 (4.5-10.0)
[2021-08-07 12:08] LABS: Iron 84 ug/dL (37-170)
[2021-08-07 12:17] LABS: Percent Iron Saturation 23 % (20-50)
[2021-08-17 12:10] LABS: CALR Exon 9 Mutation Not Detected (Not Detected); CSF3R Exon 14/17 Mutation Not Detected (Not Detected); Clinical Indication Not Given; JAK2 Exon 12 Mutation Not Detected (Not Detected); JAK2 V617F Mutation Not Detected (Not Detected); MPL Exon 10 Mutation Not Detected (Not Detected); Specimen Source Blood
== END 2021-08-07 11:07 | disposition home or self-care (01) ==
PROVIDERS: PCP Physician Assistant; Visit Provider Internal Medicine Hematology & Oncology
DX: D75.838 Other thrombocytosis (principal)
CPT/HCPCS: 36415; 81219; 81270; 81402; 81403; 81479; 82728; 83540; 83550; 85025

== ENCOUNTER → 2021-08-07 11:43 | Outpatient (CLI) | payer MEDICARE, OTHER, SELFPAY ==
--- NOTE | ~2021-08-07 | XR_ITS ---
XR lumbar spine 2-3V DATE: 08/07/2021 12:37 INDICATION: Fall. Weakness of both lower extremities. Chronic bilateral neck pain. TECHNIQUE: AP, lateral, coned lateral lumbosacral views COMPARISON: 05/06/2018 MR lumbar spine FINDINGS: Diffuse osteopenia. There is mild to moderate dextroscoliosis of the lumbar spine. There is moderately severe degenerative disc disease at L1-2, L2-3. There is mild to moderate degenerative disc disease at L4-5. There is degenerative changes apophyseal joints at L4-5 and L5-S1 with associated grade 1 anterolisth esis at L4-5. Abdominal aortic calcification The sacroiliac joints are intact Status post right total hip arthroplasty. Status post cholecystectomy IMPRESSION: Osteopenia Dextro scoliosis Multilevel degenerative disc disease, most prominent at L1-2 and L2-3 Degenerative change of the facet joints with associated grade 1 anterolisthesis at L4-5 Right total hip arthroplasty Reviewed, dictated and finalized at location A.
== END ==
PROVIDERS: PCP Physician Assistant; Visit Provider Family Medicine
DX: R29.6 Repeated falls (principal); R29.898 Other symptoms and signs involving the musculoskeletal system; M54.50 Low back pain, unspecified; G89.29 Other chronic pain; M85.89 Other specified disorders of bone density and structure, multiple sites; M41.86 Other forms of scoliosis, lumbar region; M51.36 Other intervertebral disc degeneration, lumbar region; M43.16 Spondylolisthesis, lumbar region; Z96.641 Presence of right artificial hip joint
CPT/HCPCS: 72100

== ENCOUNTER → 2021-08-11 10:46 | Outpatient (CLI) | payer MEDICARE, OTHER, SELFPAY ==
--- NOTE | ~2021-08-11 | MR_ITS ---
EXAMINATION: MR lumbar spine wo con DATE: 08/11/2021 11:16 INDICATION: Low back pain. TECHNIQUE: Magnetic resonance imaging (MRI) of the lumbar spine was performed without intravenous con trast. Sequences included sagittal T2-weighted FSE, sagittal T2-weighted FS FSE, sagittal T1-weighted FSE, and axial T2-weighted FSE. COMPARISON: Lumbar spine MRI 05/06/2018 FINDINGS: There is 8 degrees dextrocurvature of lumbar spine. There is 3 mm retrolisthesis of L1 on L 2 and L2 on L3. There is 3 mm anterolisthesis of L4 on L5. There is mild chronic anterior wedging of T11 vertebral body. There is mildly decreased disc height at L1-L2, L2-L3, L4-L5, and L5-S1. There ar e endplate osteophytes at all levels. The distal spinal cord signal intensity is normal. The conus me dullaris is at T12-L1. The following disc levels are specifically discussed: L1-L2: The disc is bulging. There is mild bilateral facet joint osteoarthritis. There is mild bilater al neural foraminal stenosis. There is mild central canal stenosis. L2-L3: The disc is bulging. There is mild bilateral facet joint osteoarthritis. There is mild bilater al neural foraminal stenosis. There is mild central canal stenosis. L3-L4: The disc is bulging. There is moderate bilateral facet joint osteoarthritis. There is mild mikey ateral neural foraminal stenosis. There is no central canal stenosis. L4-L5: The disc is bulging and has an annular fissure. There is severe bilateral facet joint osteoart hritis. There is mild bilateral neural foraminal stenosis. There is mild central canal stenosis. L5-S1: The disc is bulging. There is severe bilateral facet joint osteoarthritis. There is mild bilat eral neural foraminal stenosis. There is mild central canal stenosis. IMPRESSION: 1. Mild lumbar spondylosis, stable from 05/06/2018. Reviewed, dictated and finalized at location A.
== END ==
PROVIDERS: PCP Family Medicine; Visit Provider Family Medicine
DX: R29.6 Repeated falls (principal); R29.898 Other symptoms and signs involving the musculoskeletal system; M54.50 Low back pain, unspecified; G89.29 Other chronic pain; M47.816 Spondylosis without myelopathy or radiculopathy, lumbar region
CPT/HCPCS: 72148

== ENCOUNTER 2021-09-01 10:29 | Outpatient (CLI) | payer MEDICARE, OTHER, SELFPAY ==
[2021-09-01 10:55] LABS: Basophils Absolute Auto 0.1 K/mm3 (0.0-0.1); Basophils Percent Auto 0.6 % (0.2-1.2); Eosinophils Percent Auto 0.4 % (0-4.4); Immature Granulocyte Absolute 0.05 K/mm3 (0.00-0.031); Immature Granulocyte Percent A 0.6 % (0-0.5); Lymphocytes Absolute Auto 1.53 K/mm3 (0.9-3.2); Lymphocytes Percent Auto 19.4 % (18.3-44.2); Mean Corpuscular HGB Conc 33.3 g/dl (32-36); Mean Corpuscular Hemoglobin 31.4 pg (26-34); Mean Corpuscular Volume 94.2 fl (80-100); Mean Platelet Volume 9.1 fl (7.4-10.4); Monocytes Absolute Auto 0.7 K/mm3 (0.1-0.6); Monocytes Percent Auto 8.6 % (2.6-8.5); Neutrophils Absolute Auto 5.6 K/mm3 (1.3-6.7); Neutrophils Percent Auto 70.4 % (45.5-73.1); Platelet Count Result 466 k/mm3 (150-375); Red Blood Count 4.14 M/mm3 (4.2-5.4); Red Cell Distribution Width 13.2 % (11.5-14.5); White Blood Count 7.9 K/mm3 (4.5-10.0)
[2021-09-01 17:01] LABS: Iron 68 ug/dL (37-170)
[2021-09-01 17:10] LABS: Percent Iron Saturation 19 % (20-50)
== END 2021-09-01 10:30 | disposition home or self-care (01) ==
LOC: ANHLAB 10:32
PROVIDERS: PCP Physician Assistant; Visit Provider Internal Medicine Hematology & Oncology
DX: D75.838 Other thrombocytosis (principal)
CPT/HCPCS: 36415; 82728; 83540; 83550; 85025

== ENCOUNTER 2021-11-29 12:45 | Emergency (ER) | payer MEDICARE, OTHER, SELFPAY ==
[2021-11-29 13:03] VITALS: BP 138/74; PULSE 96; RESP 16; TEMP 37; O2SAT 99
--- NOTE | 2021-11-29 13:16 | PC.NURSE ---
1310, to br to obtain ua spec.
--- NOTE | 2021-11-29 13:19 | ED.FEMALEGU ---
HPI - Female Genitourinary General Chief complaint: Urogenital-Female Stated complaint: uti/lower back pain Time Seen by Provider: 11/29/21 13:20 Source: patient and RN notes reviewed Mode of arrival: ambulatory Limitations: no limitations History of Present Illness HPI Narrative: 71 y/o female presented for c/o possible UTI, reporting urinary hesitancy, burning and suprapubic pressure with urination. Endorses chills. Symptoms started after using topical hemorrhoid cream. States it feels like UTI she has had in the past. Denies abdominal pain, n/v/d/f. Related Data Home Medications Medication Instructions Recorded Confirmed glucosamine sulf dipot 1 cap PO DAILY 02/26/20 05/23/21 chlr,msm,chond 550 mg-C 30 mg-denisa 1 mg capsule (Glucosamine Chondroitin) esomeprazole magnesium 40 mg 40 mg PO DAILY 12/13/20 05/23/21 capsule,delayed release fluoxetine 40 mg capsule 40 mg PO DAILY 12/13/20 05/23/21 fluticasone propionate 50 50 mcg intranasal DAILY 05/23/21 05/23/21 mcg/actuation nasal spray,suspension venlafaxine 37.5 mg 37.5 mg PO DAILY 05/23/21 05/23/21 capsule,extended release 24 hr alprazolam 0.25 mg tablet mg 11/29/21 11/29/21 diazepam 5 mg tablet mg 11/29/21 folic acid 1 mg tablet 11/29/21 linaclotide 72 mcg capsule mcg 11/29/21 (Linzess) methotrexate sodium 2.5 mg tablet mg 11/29/21 ondansetron 4 mg disintegrating mg 11/29/21 tablet Allergies Allergy/AdvReac Type Severity Reaction Status Date / Time Penicillins Allergy Severe swelling Verified 11/29/21 12:53 eyes tramadol AdvReac Intermediate n/v, Verified 11/29/21 12:53 dizziness oxycodone AdvReac Unknown n/v, Verified 11/29/21 12:53 dizziness Review of Systems Review of Systems: CONSTITUTIONAL: Denies body aches, fever, chills, or sweats. CARDIOVASCULAR: Denies chest pain, palpitations, or edema. RESPIRATORY: Denies cough or dyspnea. GASTROINTESTINAL: Denies abdominal pain, nausea, vomiting, or diarrhea. GENITOURINARY: Reports dysuria, urgency, denies hematuria, flank pain SKIN: Denies rash, itching, or wounds. MUSCULOSKELETAL: Denies back pain or myalgia. [facility] Past Medical History Medical History Anxiety Arthritis Generalized; primarily in knees and hips Back pain Cataract Cholecystitis DDD (degenerative disc disease) Depression Diverticulosis Endometriosis GERD (gastroesophageal reflux disease) HLD (hyperlipidemia) Meniere's disease Pilonidal cyst Extracted Rectal polyp Seasonal allergies UTI (urinary tract infection) Surgical History Surgical History History of 3 sections History of hysterectomy History of right hip replacement Hx of cholecystectomy Family History Family History Mother Hypertension Cerebrovascular accident Hyperlipidemia Sibling Diabetes mellitus Social History Social History Social History: The patient is and lives with her in [place]. She has 4 children. She is retired from the [employer]. She denies any alcohol tobacco or drug use. Lifelong nonsmoker. Smoking status: Never smoker Alcohol intake: never Substance use: never Gender identity (if verbalized by the patient): Female Spiritual care concerns: No Comments At time of signature, I have reviewed and agree with nursing past medical, surgical, social and family history unless otherwise noted. Please see nursing chart for further information. There is no relevant family history pertinent to the presenting complaint Exam Narrative: GENERAL: Well-appearing ENT: Mucous membranes pink and moist. CHEST: Clear to auscultation. HEART: Regular rate and rhythm. ABDOMEN: Soft, nontender, nondistended, normal active bowel sounds. No CVA tenderne
== END 2021-11-29 13:38 | disposition home or self-care (01) ==
PROVIDERS: Emergency Provider Nurse Practitioner Family
DX: N39.0 Urinary tract infection, site not specified (principal); F41.9 Anxiety disorder, unspecified; F32.A Depression, unspecified; N80.9 Endometriosis, unspecified; K21.9 Gastro-esophageal reflux disease without esophagitis; E78.5 Hyperlipidemia, unspecified; Z96.652 Presence of left artificial knee joint
CPT/HCPCS: 81003; 87086; 99213; G0463

== ENCOUNTER 2021-12-09 09:36 | Outpatient (CLI) | payer MEDICARE, OTHER, SELFPAY ==
[2021-12-09 09:58] LABS: Basophils Percent Auto 0.3 % (0.2-1.2); Eosinophils Percent Auto 0.5 % (0-4.4); Hematocrit 38.6 % (37.0-47.0); Hemoglobin 12.8 g/dL (12.0-15.0); Immature Granulocyte Absolute 0.04 K/mm3 (0.00-0.031); Immature Granulocyte Percent A 0.6 % (0-0.5); Lymphocytes Absolute Auto 1.38 K/mm3 (0.9-3.2); Lymphocytes Percent Auto 21.2 % (18.3-44.2); Mean Corpuscular HGB Conc 33.2 g/dl (32-36); Mean Corpuscular Hemoglobin 31.2 pg (26-34); Mean Corpuscular Volume 94.1 fl (80-100); Mean Platelet Volume 8.9 fl (7.4-10.4); Monocytes Absolute Auto 0.6 K/mm3 (0.1-0.6); Monocytes Percent Auto 8.6 % (2.6-8.5); Neutrophils Absolute Auto 4.5 K/mm3 (1.3-6.7); Neutrophils Percent Auto 68.8 % (45.5-73.1); Platelet Count Result 480 k/mm3 (150-375); Red Cell Distribution Width 13.9 % (11.5-14.5); White Blood Count 6.5 K/mm3 (4.5-10.0)
== END 2021-12-09 09:37 | disposition home or self-care (01) ==
LOC: ANHLAB 09:38
PROVIDERS: Visit Provider Internal Medicine Hematology & Oncology
DX: D75.838 Other thrombocytosis (principal)
CPT/HCPCS: 36415; 85025

== ENCOUNTER 2022-02-04 14:52 | Emergency (ER) | payer MEDICARE, OTHER, SELFPAY ==
--- NOTE | ~2022-02-04 | CT_ITS ---
EXAMINATION: CTA chest PE protocol DATE: 02/04/2022 18:12 INDICATION: shortness of breath TECHNIQUE: Computed tomography angiography (CTA) of the chest was performed with 200 mL Omnipaque-350 intravenous contrast timed to evaluate the pulmonary arteries. Coronal maximum intensity projection 3D-reconstructions were created by the technologist. The dose-length product (DLP) was 269.18 mGy-cm. Automated exposure control and iterative reconstruction technique were employed. COMPARISON: 08/21/2020. FINDINGS: Lung parenchyma and airways: Minimal dependent atelectasis. Pleura: Unremarkable. Thoracic inlet, axillae and chest wall: Unremarkable. Thoracic aorta: Normal. Mediastinum: Normal. Heart and pericardium: Normal. Coronary artery calcifications: Mild. Upper abdomen: No significant finding. Bones: No acute osseous finding. Pulmonary arteries: Study quality: Adequate. No pulmonary emboli detected. IMPRESSION: No CT evidence of acute pulmonary embolus. No acute intrathoracic process detected. Reviewed, dictated and finalized at location K. E SEARCH MANAGER IMPRESSION: No CT evidence of acute pulmonary embolus. No acute intrathoracic process detec mark.
--- NOTE | ~2022-02-04 | XR_ITS ---
Clinical Indication: Dyspnea PA and lateral views of the chest: Comparison: 06/06/2021 Findings: The lungs are clear, without evidence of focal consolidation or pleural effusion. Cardiome diastinal silhouette is within normal limits. Bones and soft tissues are unremarkable. Impression: Normal chest. Reviewed, dictated and finalized at location [] ATIONS AGENT Impression: Normal chest.
--- NOTE | 2022-02-04 14:58 | ECG_ITS ---
Measurements Intervals [place] Rate: 90 P: 42 NE: 144 QRS: 22 QRSD: 87 T: 46 QT: 343 QTc: 420 Interpretive Statements SINUS RHYTHM POSSIBLE OLD INFERIOR NH COMPARED TO ECG 06/06/2021 16:26:30 THE RATE IS SLOWER Electronically Signed On 02-05-2022 11:37:50 ARCHITECTURAL MODEL MAKER by Whitley Loyola M.D.
[2022-02-04 15:13] VITALS: BP 132/75; PULSE 98; RESP 20; TEMP 36.6; O2SAT 100
[2022-02-04 16:36] LABS: Basophils Percent Auto 0.4 % (0.2-1.2); Eosinophils Percent Auto 0.3 % (0-4.4); Hemoglobin 13.9 g/dL (12.0-15.0); Immature Granulocyte Absolute 0.05 K/mm3 (0.00-0.031); Immature Granulocyte Percent A 0.7 % (0-0.5); Lymphocytes Absolute Auto 1.44 K/mm3 (0.9-3.2); Lymphocytes Percent Auto 20.4 % (18.3-44.2); Mean Corpuscular HGB Conc 33.9 g/dl (32-36); Mean Corpuscular Hemoglobin 32.6 pg (26-34); Mean Platelet Volume 8.5 fl (7.4-10.4); Monocytes Absolute Auto 0.6 K/mm3 (0.1-0.6); Monocytes Percent Auto 8.9 % (2.6-8.5); Neutrophils Absolute Auto 4.9 K/mm3 (1.3-6.7); Neutrophils Percent Auto 69.3 % (45.5-73.1); Platelet Count Result 485 k/mm3 (150-375); Red Blood Count 4.27 M/mm3 (4.2-5.4); Red Cell Distribution Width 14.9 % (11.5-14.5); White Blood Count 7.1 K/mm3 (4.5-10.0)
[2022-02-04 16:47] LABS: Alanine Aminotransferase 25 U/L (6-35); Albumin Level 4.6 g/dL (3.5-5.1); Alkaline Phosphatase 104 U/L (38-126); Anion Gap 9 mmol/L (8-16); Aspartate Amino Transferase 32 U/L (14-36); Bilirubin,Total 0.4 mg/dL (0.2-1.3); Blood Urea Nitrogen 15 mg/dL (7-17); Calcium 9.2 mg/dL (8.4-10.2); Carbon Dioxide 26 mmol/L (22-30); Chloride 92 mmol/L (98-107); Estimated CRCL calculation 50 ml/min; Estimated Glomerular Filt Rate > 60; Glucose 119 mg/dL (65-110); Potassium 4.2 mmol/L (3.4-5.0); Sodium 127 mmol/L (137-145)
--- NOTE | 2022-02-04 17:34 | ED.GENADULT ---
HPI - General Adult General Chief complaint: Shortness of Breath/Dyspnea Stated complaint: sob Time Seen by Provider: 02/04/22 17:17 Source: patient Mode of arrival: ambulatory Limitations: no limitations History of Present Illness HPI narrative: 71-year-old female with history of M?ni?re's disease, UTI and she states some sort of clotting disorder presents today with complaints of shortness of breath, chills that she noted this morning. Patient also states this morning she felt chest pressure that radiates into her left shoulder x 1 non since then. Patient did see her primary care physician today and was instructed to come to the ER for evaluation. Patient denies any known sick contacts, nausea, vomiting, diarrhea, fevers. She does have a cough but this is chronic and there has been no change recently. Related Data Home Medications Medication Instructions Recorded Confirmed glucosamine sulf dipot 1 cap PO DAILY 02/26/20 05/23/21 chlr,msm,chond 550 mg-C 30 mg-denisa 1 mg capsule (Glucosamine Chondroitin) esomeprazole magnesium 40 mg 40 mg PO DAILY 12/13/20 05/23/21 capsule,delayed release fluoxetine 40 mg capsule 40 mg PO DAILY 12/13/20 05/23/21 fluticasone propionate 50 50 mcg intranasal DAILY 05/23/21 05/23/21 mcg/actuation nasal spray,suspension venlafaxine 37.5 mg 37.5 mg PO DAILY 05/23/21 05/23/21 capsule,extended release 24 hr alprazolam 0.25 mg tablet mg 11/29/21 11/29/21 diazepam 5 mg tablet mg 11/29/21 folic acid 1 mg tablet 11/29/21 linaclotide 72 mcg capsule mcg 11/29/21 (Linzess) methotrexate sodium 2.5 mg tablet mg 11/29/21 ondansetron 4 mg disintegrating mg 11/29/21 tablet Allergies Allergy/AdvReac Type Severity Reaction Status Date / Time Penicillins Allergy Severe swelling Verified 02/04/22 15:20 eyes tramadol AdvReac Intermediate n/v, Verified 02/04/22 15:20 dizziness oxycodone AdvReac Unknown n/v, Verified 02/04/22 15:20 dizziness pregabalin [From Lyrica] AdvReac Dizziness Verified 02/04/22 15:20 Review of Systems Review of Systems: CONSTITUTIONAL: Chills. Denies fever or sweats. EYES: Denies visual changes, redness, or discharge. ENT: Denies rhinorrhea, congestion, sore throat, or otalgia. CARDIOVASCULAR: On ambulation chest pressure radiating to left shoulder. Denies palpitations, or edema. RESPIRATORY: Chronic cough. Dyspnea. GASTROINTESTINAL: Denies abdominal pain, nausea, vomiting, or diarrhea. GENITOURINARY: Dysuria with frequency. SKIN: Denies rash or itching. MUSCULOSKELETAL: Chronic low back pain. Left upper back pain with ambulation. NEUROLOGIC: Denies headache, numbness, dizziness, or weakness. PSYCHIATRIC: Denies anxiety or depression. [facility] Past Medical History Medical History Anxiety Arthritis Generalized; primarily in knees and hips Back pain Cataract Cholecystitis DDD (degenerative disc disease) Depression Diverticulosis Endometriosis GERD (gastroesophageal reflux disease) HLD (hyperlipidemia) Meniere's disease Pilonidal cyst Extracted Rectal polyp Seasonal allergies UTI (urinary tract infection) Surgical History Surgical History History of 3 sections History of hysterectomy History of right hip replacement Hx of cholecystectomy Family History Family History Mother Hypertension Cerebrovascular accident Hyperlipidemia Sibling Diabetes mellitus Social History Social History Social History: The patient is and lives with her in [place]. She has 4 children. She is retired from the [employer]. She denies any alcohol tobacco or drug use. Lifelong nonsmoker. Smoking status: Never smoker Alcohol intake: never Substance use: never Gender identity (if verbalized
[2022-02-04] MEDS: SODIUM CHLORIDE 0.9% IV 1,000 ML 999 ML IV CONT (17:50)
[2022-02-04 18:11] LABS: Add Urine Microscopic? NO; Appearance Urine Clear (Clear); Bilirubin Urine Negative (Negative); Blood Urine Negative (Negative); Color Urine Light Yellow (Yellow); Glucose Urine UA Negative (Negative); Ketones Urine Negative (Negative); Leukocyte Esterase Ur Negative LEU/UL (Negative); Nitrate Urine Negative (Negative); Protein Urine Negative (Negative); Urobilinogen Urine 0.2 mg/dL (<2.0)
[2022-02-04 18:19] LABS: Troponin I < 0.012 ng/mL (0.000-0.034)
[2022-02-04 18:36] LABS: Influenza A QL RT-PCR Negative (Negative); Influenza B QL RT-PCR Negative (Negative); SARS-CoV-2 RNA PCR Negative
[2022-02-04 19:00] VITALS: PULSE 79
[2022-02-04 19:03] VITALS: BP 169/74; PULSE 81; RESP 18; O2SAT 98
[2022-02-04 19:05] VITALS: O2SAT 99
== END 2022-02-04 19:43 | disposition home or self-care (01) ==
PROVIDERS: Emergency Medicine; Emergency Provider Nurse Practitioner Family
DX: R06.00 Dyspnea, unspecified (principal); R30.0 Dysuria; E87.1 Hypo-osmolality and hyponatremia; Z20.822 Contact with and (suspected) exposure to COVID-19; F41.9 Anxiety disorder, unspecified; M19.90 Unspecified osteoarthritis, unspecified site; F32.9 Major depressive disorder, single episode, unspecified; K21.9 Gastro-esophageal reflux disease without esophagitis
CPT/HCPCS: 36415; 71046; 71275; 80053; 81003; 84484; 85025; 87636; 93005; 96360; 99284; J7030; Q9967

== ENCOUNTER 2022-04-14 11:04 | Outpatient (CLI) | payer MEDICARE, OTHER, SELFPAY ==
[2022-04-14 11:18] LABS: Basophils Percent Auto 0.4 % (0.2-1.2); Eosinophils Percent Auto 0.6 % (0-4.4); Hematocrit 39.8 % (37.0-47.0); Immature Granulocyte Percent A 1.4 % (0-0.5); Lymphocytes Absolute Auto 1.71 K/mm3 (0.9-3.2); Lymphocytes Percent Auto 24.3 % (18.3-44.2); Mean Corpuscular HGB Conc 32.7 g/dl (32-36); Mean Corpuscular Hemoglobin 32.7 pg (26-34); Mean Platelet Volume 9.3 fl (7.4-10.4); Monocytes Absolute Auto 0.8 K/mm3 (0.1-0.6); Monocytes Percent Auto 11.2 % (2.6-8.5); Neutrophils Absolute Auto 4.4 K/mm3 (1.3-6.7); Neutrophils Percent Auto 62.1 % (45.5-73.1); Platelet Count Result 476 k/mm3 (150-375); Red Blood Count 3.98 M/mm3 (4.2-5.4); Red Cell Distribution Width 13.1 % (11.5-14.5); White Blood Count 7.1 K/mm3 (4.5-10.0)
[2022-04-14 11:23] LABS: Blood Urea Nitrogen 11 mg/dL (8-26); Carbon Dioxide 33 mmol/L (22-30); Chloride 96 mmol/L (98-109); Estimated Glomerular Filt Rate 55; Glucose 112 mg/dL (70-105); Ionized Calcium (POC) 1.17 mmol/L (1.11-1.31); Potassium 3.5 mmol/L (3.5-4.9); Sodium 136 mmol/L (138-146)
== END 2022-04-14 11:05 | disposition home or self-care (01) ==
LOC: ANHLAB 11:05
PROVIDERS: Visit Provider Internal Medicine Hematology & Oncology
DX: D75.838 Other thrombocytosis (principal)
CPT/HCPCS: 36415; 80047; 85025

== ENCOUNTER 2022-05-20 09:19 | Emergency (ER) | payer MEDICARE, OTHER, SELFPAY ==
[2022-05-20 09:39] VITALS: BP 146/82; PULSE 100; RESP 16; TEMP 36.9; O2SAT 99
--- NOTE | 2022-05-20 10:42 | ED.SKABFB ---
HPI - Skin/Abscess/Foreign Bdy General Chief complaint: Skin/Abscess/Foreign Body Stated complaint: Rash Time Seen by Provider: 05/20/22 10:30 Source: patient Mode of arrival: ambulatory Limitations: no limitations History of Present Illness HPI narrative: 71-year-old female presents with complaint of itchy, painful rash for the past several weeks. Has tried [id number] calamine, Vaseline and hydrogen peroxide with no improvement. States that she ordered a [employer] itch powder off of [employer] and that is the only thing that has helped with itching. No other complaints today. All systems reviewed and negative except as noted above. Related Data Home Medications Medication Instructions Recorded Confirmed glucosamine sulf dipot 1 cap PO DAILY 02/26/20 05/23/21 chlr,msm,chond 550 mg-C 30 mg-denisa 1 mg capsule (Glucosamine Chondroitin) esomeprazole magnesium 40 mg 40 mg PO DAILY 12/13/20 05/23/21 capsule,delayed release fluoxetine 40 mg capsule 40 mg PO DAILY 12/13/20 05/23/21 alprazolam 0.25 mg tablet mg 11/29/21 11/29/21 folic acid 1 mg tablet 11/29/21 linaclotide 72 mcg capsule mcg 11/29/21 (Linzess) adalimumab 40 mg/0.4 mL mg subcut 05/20/22 subcutaneous pen kit (Humira(CF) Pen) fluorouracil 5 % topical cream applic topical 05/20/22 trazodone 50 mg tablet mg 05/20/22 triamterene 37.5 tablet 05/20/22 mg-hydrochlorothiazide 25 mg tablet Allergies Allergy/AdvReac Type Severity Reaction Status Date / Time Penicillins Allergy Severe swelling Verified 05/20/22 10:04 eyes tramadol AdvReac Intermediate n/v, Verified 05/20/22 10:04 dizziness oxycodone AdvReac Unknown n/v, Verified 05/20/22 10:04 dizziness pregabalin [From Lyrica] AdvReac Dizziness Verified 05/20/22 10:04 Review of Systems Review of Systems: CONSTITUTIONAL: Denies fever, chills, or sweats. EYES: Denies visual changes, redness, or discharge. ENT: Denies rhinorrhea, congestion, sore throat, or otalgia. CARDIOVASCULAR: Denies chest pain, palpitations, or edema. RESPIRATORY: Denies cough or dyspnea. GASTROINTESTINAL: Denies abdominal pain, nausea, vomiting, or diarrhea. GENITOURINARY: Denies dysuria or hematuria. SKIN: Reports itchy rash to bilateral groin. MUSCULOSKELETAL: Denies back pain, joint pain, or myalgia. NEUROLOGIC: Denies headache, numbness, or weakness. PSYCHIATRIC: Denies anxiety or depression. All other systems reviewed are negative, except as documented in HPI. [facility] Past Medical History Medical History Anxiety Arthritis Generalized; primarily in knees and hips Back pain Cataract Cholecystitis DDD (degenerative disc disease) Depression Diverticulosis Endometriosis GERD (gastroesophageal reflux disease) HLD (hyperlipidemia) Meniere's disease Pilonidal cyst Extracted Rectal polyp Seasonal allergies UTI (urinary tract infection) Surgical History Surgical History History of 3 sections History of hysterectomy History of right hip replacement Hx of cholecystectomy Family History Family History Mother Hypertension Cerebrovascular accident Hyperlipidemia Sibling Diabetes mellitus Social History Social History Social History: The patient is and lives with her in [place]. She has 4 children. She is retired from the [employer]. She denies any alcohol tobacco or drug use. Lifelong nonsmoker. Smoking status: Never smoker Alcohol intake: never Substance use: never Gender identity (if verbalized by the patient): Female Spiritual care concerns: No Comments At time of signature, agree with nursing past medical, surgical, social and family history. There is no relevant family history pertinent to the presenting complaint.
== END 2022-05-20 10:48 | disposition home or self-care (01) ==
PROVIDERS: Emergency Provider Nurse Practitioner Family; PCP Nurse Practitioner Family
DX: B37.2 Candidiasis of skin and nail (principal); M17.0 Bilateral primary osteoarthritis of knee; M16.0 Bilateral primary osteoarthritis of hip; N80.9 Endometriosis, unspecified; K21.9 Gastro-esophageal reflux disease without esophagitis; E78.5 Hyperlipidemia, unspecified; Z96.641 Presence of right artificial hip joint
CPT/HCPCS: 99213; G0463

== ENCOUNTER 2022-06-08 09:16 | Emergency (ER) | payer MEDICARE, OTHER, SELFPAY ==
[2022-06-08 09:37] VITALS: BP 147/75; PULSE 90; RESP 16; TEMP 37.2; O2SAT 99
--- NOTE | 2022-06-08 10:02 | ED.FEMALEGU ---
HPI - Female Genitourinary General Chief complaint: Urogenital-Female Stated complaint: UTI Time Seen by Provider: 06/08/22 09:50 Source: patient and RN notes reviewed Mode of arrival: ambulatory Limitations: no limitations History of Present Illness HPI Narrative: Patient presents today complaining of 1 week history of suprapubic pressure, urgency, dysuria, low back pain. She has been taking Tylenol and ibuprofen with some relief. Related Data Home Medications Medication Instructions Recorded Confirmed glucosamine sulf dipot 1 cap PO DAILY 02/26/20 06/08/22 chlr,msm,chond 550 mg-C 30 mg-denisa 1 mg capsule (Glucosamine Chondroitin) esomeprazole magnesium 40 mg 40 mg PO DAILY 12/13/20 06/08/22 capsule,delayed release folic acid 1 mg tablet 1 mg PO DAILY 11/29/21 06/08/22 linaclotide 72 mcg capsule 72 mcg PO DAILY 11/29/21 06/08/22 (Linzess) trazodone 50 mg tablet 50 mg PO DAILY 05/20/22 06/08/22 triamterene 37.5 1 tablet PO DAILY 05/20/22 06/08/22 mg-hydrochlorothiazide 25 mg tablet alprazolam 0.25 mg tablet 0.25 mg PO TID 06/08/22 06/08/22 naproxen 500 mg tablet 500 mg PO DAILY 06/08/22 06/08/22 Allergies Allergy/AdvReac Type Severity Reaction Status Date / Time Penicillins Allergy Severe swelling Verified 06/08/22 09:41 eyes oxycodone AdvReac Intermediate n/v, Verified 06/08/22 09:55 dizziness pregabalin [From Lyrica] AdvReac Intermediate Dizziness Verified 06/08/22 09:55 tramadol AdvReac Intermediate n/v, Verified 06/08/22 09:41 dizziness Review of Systems Review of Systems: CONSTITUTIONAL: Denies body aches, fever, chills, or sweats. EYES: Denies visual changes, redness, or discharge. ENT: Denies rhinorrhea, congestion, sore throat, or otalgia. CARDIOVASCULAR: Denies chest pain, palpitations, or edema. RESPIRATORY: Denies cough or dyspnea. GASTROINTESTINAL: Denies nausea, vomiting, or diarrhea.+ suprapubic pressure GENITOURINARY: + urgency, dysuria SKIN: Denies rash, itching, or wounds. MUSCULOSKELETAL: Denies joint pain, or myalgia.+ low back pain NEUROLOGIC: Denies headache, numbness, tingling, or weakness. PSYCH: Denies depression or anxiety. [facility] Past Medical History Medical History Anxiety Arthritis Generalized; primarily in knees and hips Back pain Cataract Cholecystitis DDD (degenerative disc disease) Depression Diverticulosis Endometriosis GERD (gastroesophageal reflux disease) HLD (hyperlipidemia) Meniere's disease Pilonidal cyst Extracted Rectal polyp Seasonal allergies UTI (urinary tract infection) Surgical History Surgical History History of 3 sections History of hysterectomy History of right hip replacement Hx of cholecystectomy Family History Family History Mother Hypertension Cerebrovascular accident Hyperlipidemia Sibling Diabetes mellitus Social History Social History Social History: The patient is and lives with her in [place]. She has 4 children. She is retired from the [employer]. She denies any alcohol tobacco or drug use. Lifelong nonsmoker. Smoking status: Never smoker Alcohol intake: never Substance use: never Gender identity (if verbalized by the patient): Female Spiritual care concerns: No Comments At time of signature, I have reviewed and agree with nursing past medical, surgical, social and family history unless otherwise noted. Please see nursing chart for further information. There is no relevant family history pertinent to the presenting complaint Exam Narrative: GENERAL: Well-appearing, well-nourished, and in no acute distress. HEAD: Normocephalic, atraumatic. EYES: EOMI. No redness or drainage. Conjunctivae normal. ENT: Mucous mem
== END 2022-06-08 10:15 | disposition home or self-care (01) ==
PROVIDERS: Emergency Provider Nurse Practitioner; PCP Nurse Practitioner Family
DX: N30.00 Acute cystitis without hematuria (principal); N80.9 Endometriosis, unspecified; K21.9 Gastro-esophageal reflux disease without esophagitis; E78.5 Hyperlipidemia, unspecified; Z96.641 Presence of right artificial hip joint; M17.0 Bilateral primary osteoarthritis of knee; M16.0 Bilateral primary osteoarthritis of hip
CPT/HCPCS: 81003; 87086; 87088; 99213; G0463

== ENCOUNTER 2022-10-11 10:34 | Emergency (ER) | payer MEDICARE, OTHER, SELFPAY ==
--- NOTE | 2022-10-11 10:39 | ED.SKABFB ---
HPI - Skin/Abscess/Foreign Bdy General Chief complaint: Skin/Abscess/Foreign Body Stated complaint: Rash Time Seen by Provider: 10/11/22 10:39 Source: patient Mode of arrival: ambulatory Limitations: no limitations History of Present Illness HPI narrative: Maggi is a 71-year-old female patient presenting to the clinic today with complaints of a itchy burning rash under her bilateral breasts x2 weeks. She reports she has tried some fungal cream and Cetaphil lotion without improvement. Has not been using the fungal cream consistently. Denies any environmental changes. Related Data Home Medications Medication Instructions Recorded Confirmed glucosamine sulf dipot 1 cap PO DAILY 02/26/20 10/11/22 chlr,msm,chond 550 mg-C 30 mg-denisa 1 mg capsule (Glucosamine Chondroitin) esomeprazole magnesium 40 mg 40 mg PO DAILY 12/13/20 10/11/22 capsule,delayed release folic acid 1 mg tablet 1 mg PO DAILY 11/29/21 10/11/22 linaclotide 72 mcg capsule 72 mcg PO DAILY 11/29/21 10/11/22 (Linzess) trazodone 50 mg tablet 50 mg PO DAILY 05/20/22 10/11/22 triamterene 37.5 1 tablet PO DAILY 05/20/22 10/11/22 mg-hydrochlorothiazide 25 mg tablet alprazolam 0.25 mg tablet 0.25 mg PO TID 06/08/22 10/11/22 naproxen 500 mg tablet 500 mg PO DAILY 06/08/22 10/11/22 Allergies Allergy/AdvReac Type Severity Reaction Status Date / Time Penicillins Allergy Severe swelling Verified 10/11/22 10:43 eyes oxycodone AdvReac Intermediate n/v, Verified 10/11/22 10:43 dizziness pregabalin [From Lyrica] AdvReac Intermediate Dizziness Verified 10/11/22 10:43 tramadol AdvReac Intermediate n/v, Verified 10/11/22 10:43 dizziness Review of Systems Review of Systems: Pertinent positives per HPI. Patient denies any fever, chills, headache, visual changes, dizziness, cough, runny nose, sore throat, shortness of breath, chest pain, palpitations, nausea, vomiting, diarrhea, constipation, abdominal pain, or any urinary issues. [facility] Past Medical History Medical History Anxiety Arthritis Generalized; primarily in knees and hips Back pain Cataract Cholecystitis DDD (degenerative disc disease) Depression Diverticulosis Endometriosis GERD (gastroesophageal reflux disease) HLD (hyperlipidemia) Meniere's disease Pilonidal cyst Extracted Rectal polyp Seasonal allergies UTI (urinary tract infection) Surgical History Surgical History History of 3 sections History of hysterectomy History of right hip replacement Hx of cholecystectomy Family History Family History Mother Hypertension Cerebrovascular accident Hyperlipidemia Sibling Diabetes mellitus Social History Social History Social History: The patient is and lives with her in [place]. She has 4 children. She is retired from the [employer]. She denies any alcohol tobacco or drug use. Lifelong nonsmoker. Smoking status: Never smoker Alcohol intake: never Substance use: never Gender identity (if verbalized by the patient): Female Spiritual care concerns: No Comments At the time of my signature, I reviewed and agree with the nursing past medical, surgical, social, and family history. There is no relevant family history pertinent to the patient complaint. Exam Narrative: General: Well-developed, well nourished, in no apparent distress Head: Normocephalic, atraumatic. Cardio: Regular rate and rhythm, s1 and s2 normal, no murmur appreciated. Resp: Clear to auscultation bilaterally, no rhonchi, rales, wheezing or rubs. Integumentary: [place], warm, and dry, intact without lesion, red beefy peeling itchy burning rash to the skin under the breast left worse than right. Course Course
[2022-10-11 10:43] VITALS: BP 142/79; PULSE 94; RESP 16; TEMP 37.6; O2SAT 96
[2022-10-11 10:45] VITALS: BP 142/79; PULSE 94; RESP 16; TEMP 37.6; O2SAT 96
== END 2022-10-11 10:58 | disposition home or self-care (01) ==
PROVIDERS: Emergency Provider Nurse Practitioner Family
DX: B37.2 Candidiasis of skin and nail (principal); M17.0 Bilateral primary osteoarthritis of knee; M16.0 Bilateral primary osteoarthritis of hip; N80.9 Endometriosis, unspecified; K21.9 Gastro-esophageal reflux disease without esophagitis; E78.5 Hyperlipidemia, unspecified; Z96.641 Presence of right artificial hip joint; F41.9 Anxiety disorder, unspecified; F32.A Depression, unspecified
CPT/HCPCS: 99213; G0463

== ENCOUNTER 2022-10-12 10:54 | Outpatient (CLI) | payer MEDICARE, OTHER, SELFPAY ==
[2022-10-12 11:17] LABS: Basophils Percent Auto 0.3 % (0.2-1.2); Eosinophils Percent Auto 0.3 % (0-4.4); Hematocrit 39.6 % (37.0-47.0); Hemoglobin 13.5 g/dL (12.0-15.0); Lymphocytes Absolute Auto 1.19 K/mm3 (0.9-3.2); Lymphocytes Percent Auto 11.8 % (18.3-44.2); Mean Corpuscular HGB Conc 34.1 g/dl (32-36); Mean Corpuscular Hemoglobin 31.6 pg (26-34); Mean Corpuscular Volume 92.7 fl (80-100); Mean Platelet Volume 8.8 fl (7.4-10.4); Monocytes Absolute Auto 0.7 K/mm3 (0.1-0.6); Monocytes Percent Auto 7.3 % (2.6-8.5); Neutrophils Percent Auto 79.3 % (45.5-73.1); Platelet Count Result 396 k/mm3 (150-375); Red Blood Count 4.27 M/mm3 (4.2-5.4); Red Cell Distribution Width 13.4 % (11.5-14.5); White Blood Count 10.1 K/mm3 (4.5-10.0)
[2022-10-12 11:21] LABS: Blood Urea Nitrogen 16 mg/dL (8-26); Carbon Dioxide 28 mmol/L (22-30); Chloride 96 mmol/L (98-109); Estimated Glomerular Filt Rate > 60; Glucose 126 mg/dL (70-105); Potassium 3.4 mmol/L (3.5-4.9); Sodium 135 mmol/L (138-146)
== END 2022-10-12 10:55 | disposition home or self-care (01) ==
LOC: ANHLAB 10:56
PROVIDERS: Visit Provider Internal Medicine Hematology & Oncology
DX: D75.838 Other thrombocytosis (principal)
CPT/HCPCS: 36415; 80047; 85025

== ENCOUNTER 2022-11-14 11:42 | Emergency (ER) | payer MEDICARE, OTHER, SELFPAY ==
[2022-11-14 11:53] VITALS: BP 137/78; PULSE 94; RESP 14; TEMP 36.4; O2SAT 100
--- NOTE | 2022-11-14 12:56 | ED.FEMALEGU ---
HPI - Female Genitourinary General Chief complaint: Urogenital-Female Stated complaint: urinary issue Time Seen by Provider: 11/14/22 12:45 Source: patient, RN notes reviewed and old records reviewed Mode of arrival: ambulatory Limitations: no limitations History of Present Illness HPI Narrative: 72 year old female who presents to [facility] with complaints of lower abdominal pressure frequency and urgency for 3 days duration and has been taking AZO with last dose this morning. Patient reports that she has some burning with urination, voiding in small amount urgency and frequency and some lower back pain, no CVA tenderness. Patient denies any vaginal drainage or any itching has no fevrs,chills or sweats or any nausea or vomiting. MD elicited complaint: dysuria and UTI Onset (ago): day(s) (3) Location of symptoms: suprapubic and urethra Severity scale (1-10): 5 Vaginal discharge: none Treatment prior to arrival: OTC urinary analgesics (AZO last dose this am) Related Data Home Medications Medication Instructions Recorded Confirmed glucosamine sulf dipot 1 cap PO DAILY 02/26/20 10/11/22 chlr,msm,chond 550 mg-C 30 mg-denisa 1 mg capsule (Glucosamine Chondroitin) esomeprazole magnesium 40 mg 40 mg PO DAILY 12/13/20 10/11/22 capsule,delayed release folic acid 1 mg tablet 1 mg PO DAILY 11/29/21 10/11/22 linaclotide 72 mcg capsule 72 mcg PO DAILY 11/29/21 10/11/22 (Linzess) trazodone 50 mg tablet 50 mg PO DAILY 05/20/22 10/11/22 triamterene 37.5 1 tablet PO DAILY 05/20/22 10/11/22 mg-hydrochlorothiazide 25 mg tablet alprazolam 0.25 mg tablet 0.25 mg PO TID 06/08/22 10/11/22 naproxen 500 mg tablet 500 mg PO DAILY 06/08/22 10/11/22 fluoxetine 40 mg capsule mg 11/14/22 11/14/22 Allergies Allergy/AdvReac Type Severity Reaction Status Date / Time Penicillins Allergy Severe swelling Verified 11/14/22 12:17 eyes oxycodone AdvReac Intermediate n/v, Verified 11/14/22 12:17 dizziness pregabalin [From Lyrica] AdvReac Intermediate Dizziness Verified 11/14/22 12:17 tramadol AdvReac Intermediate n/v, Verified 11/14/22 12:17 dizziness Review of Systems Review of Systems: CONSTITUTIONAL: Denies fever, chills, or sweats. CARDIOVASCULAR: Denies chest pain, palpitations, or edema. RESPIRATORY: Denies cough or dyspnea. GASTROINTESTINAL:States suprapubic abdominal pain, no nausea, vomiting, or diarrhea. GENITOURINARY: Reports dysuria, frequency, urgency. Denies flank pain or hematuria. SKIN: Denies rash or itching. MUSCULOSKELETAL:states some low back pain or myalgia. Denies CVA tenderness NEUROLOGIC: Denies headache All systems reviewed & are unremarkable except as noted in HPI and below PMFSH Past Medical History Medical History Anxiety Arthritis Generalized; primarily in knees and hips Back pain Cataract Cholecystitis DDD (degenerative disc disease) Depression Diverticulosis Endometriosis GERD (gastroesophageal reflux disease) HLD (hyperlipidemia) Meniere's disease Pilonidal cyst Extracted Rectal polyp Seasonal allergies UTI (urinary tract infection) Surgical History Surgical History History of 3 sections History of hysterectomy History of right hip replacement Hx of cholecystectomy Family History Family History Mother Hypertension Cerebrovascular accident Hyperlipidemia Sibling Diabetes mellitus Social History Social History Social History: The patient is and lives with her in [place]. She has 4 children. She is retired from the [employer] She denies any alcohol tobacco or drug use. Lifelong nonsmoker. Smoking status: Never smoker Alcohol intake: never Substance use: never Gender identity (if verbalized by the patient):
== END 2022-11-14 13:08 | disposition home or self-care (01) ==
PROVIDERS: Emergency Provider Registered Nurse; PCP Nurse Practitioner Family
DX: R35.0 Frequency of micturition (principal); R30.0 Dysuria; F41.9 Anxiety disorder, unspecified; F32.A Depression, unspecified; N80.9 Endometriosis, unspecified; K21.9 Gastro-esophageal reflux disease without esophagitis; E78.5 Hyperlipidemia, unspecified; Z96.641 Presence of right artificial hip joint; M16.0 Bilateral primary osteoarthritis of hip; M17.0 Bilateral primary osteoarthritis of knee
CPT/HCPCS: 81003; 87086; 87088; 99213; G0463

== ENCOUNTER 2023-02-20 08:31 | Observation (INO) | payer MEDICARE, OTHER, SELFPAY ==
[2023-02-20] VITALS (18 sets, daily range): BP systolic 107–157; BP diastolic 57–75; PULSE 51–75; RESP 12–16; TEMP 36.1–37.1; O2SAT 96–100; BMI 30.2
--- NOTE | ~2023-02-20 | CT_ITS ---
EXAMINATION: CT brain wo con DATE: 02/20/2023 19:09 INDICATION: POST CARDIAC CATH, CODE STROKE, CONFUSION . TECHNIQUE: Computed tomography (CT) of the head was performed without intravenous contrast. The mA wa s adjusted according to patient size. Iterative reconstruction technique was employed. The dose-lengt h product was 605.33 mGy-cm. COMPARISON: None. FINDINGS: Sagittal reformats not originally provided had to be requested. Retained contrast. No acute intracranial hemorrhage or extra-axial fluid collection. No hydrocephalus, mass, or herniation. No acute ischemic infarct. Unremarkable dural venous sinus attenuation. No acute osseous abnormality. Air-fluid level in the sphenoid sinus, the remaining aerated spaces are clear. Bilateral lens replacements. Calcifications in the bilateral cavernous carotids, moderate on the righ t. IMPRESSION: No acute intracranial process. Air-fluid level in the sphenoid sinus may represent acute sinusitis in the appropriate clinical martha xt. Results reported telephonically to Philip Cruz RN by Dr. Kwon at 7:15 PM on 02/20/2023. Reviewed, dictated and finalized at location K. OR SOUS CHEF IMPRESSION: No acute intracranial process. Air-fluid level in the sphenoid sinus may represent acute sinusitis in the appr roper hospitaliate clinical context. Results reported telephonically to Philip Cruz RN by Dr. Kwon at 7:15 PM on 02/20/2023.
--- NOTE | ~2023-02-20 | XR_ITS ---
EXAMINATION: XR chest 2V DATE: 02/20/2023 09:05 INDICATION: Midsternal chest pain. Shortness of breath. Cough. TECHNIQUE: Frontal and lateral views of the chest were obtained. COMPARISON: Chest 2 views 02/04/2022 FINDINGS: There is no pneumonia, pleural effusion, or pneumothorax. The heart size is normal. There i s a prominent left paracardial fat pad. Surgical clips in the right upper quadrant are likely from ch olecystectomy. IMPRESSION: 1. No acute cardiopulmonary disease. Reviewed, dictated and finalized at location A. ON PRESSER
--- NOTE | ~2023-02-20 | CT_ITS ---
EXAMINATION: CTA chest PE protocol DATE: 02/20/2023 10:20 INDICATION: Shortness of breath. TECHNIQUE: Computed tomography angiography (CTA) of the chest was performed with 100 mL Omnipaque-350 intravenous contrast timed to evaluate the pulmonary arteries. Coronal maximum intensity projection 3D-reconstructions were created by the technologist. Automated exposure control and iterative reconst ruction technique were employed. The dose-length product was 349.50 mGy-cm. COMPARISON: Chest CT 02/04/2022 FINDINGS: There is mild atelectasis bilaterally. No pleural effusion. The heart size is normal. No pe ricardial effusion. There is no pulmonary embolus. There are changes of cholecystectomy. There is an 8 mm mass of fat in right adrenal gland, consistent with a myelolipoma. There is mild thoracic spondy losis. IMPRESSION: 1. No pulmonary embolus. Reviewed, dictated and finalized at location A. ITION ASSISTANT IMPRESSION: 1. No pulmonary embolus.
--- NOTE | 2023-02-20 08:35 | ECG_ITS ---
Measurements Intervals [place] Rate: 64 P: [place]: 0 QRS: 10 QRSD: 94 T: 12 QT: 433 QTc: 449 Interpretive Statements JUNCTIONAL RHYTHM POSSIBLE INFERIOR MYOCARDIAL INFARCTION , PROBABLY OLD COMPARED TO ECG 02/04/2022 16:26:31 JUNCITONAL RHYTHM NOW PRESENT Electronically Signed On 02-21-2023 14:30:14 COMBINATION MACHINE TENDER by Denzel Patel M.D.
[2023-02-20 08:52] LABS: Basophils Percent Auto 0.5 % (0.2-1.2); Eosinophils Percent Auto 0.4 % (0-4.4); Hematocrit 39.7 % (37.0-47.0); Hemoglobin 13.4 g/dL (12.0-15.0); Immature Granulocyte Absolute 0.08 K/mm3 (0.00-0.031); Lymphocytes Absolute Auto 1.35 K/mm3 (0.9-3.2); Lymphocytes Percent Auto 16.7 % (18.3-44.2); Mean Corpuscular HGB Conc 33.8 g/dl (32-36); Mean Corpuscular Hemoglobin 31.9 pg (26-34); Mean Corpuscular Volume 94.5 fl (80-100); Mean Platelet Volume 9.4 fl (7.4-10.4); Monocytes Absolute Auto 0.7 K/mm3 (0.1-0.6); Monocytes Percent Auto 8.5 % (2.6-8.5); Neutrophils Absolute Auto 5.9 K/mm3 (1.3-6.7); Neutrophils Percent Auto 72.9 % (45.5-73.1); Platelet Count Result 494 k/mm3 (150-375); Red Cell Distribution Width 13.4 % (11.5-14.5); White Blood Count 8.1 K/mm3 (4.5-10.0)
[2023-02-20 09:02] LABS: Partial Thromboplastin Time 25.7 SECONDS (22.3-36.8); Prothrombin Time 13.5 Seconds (11.1-14.7)
[2023-02-20 09:03] LABS: Alanine Aminotransferase 28 U/L (6-35); Albumin Level 4.2 g/dL (3.5-5.1); Alkaline Phosphatase 98 U/L (38-126); Anion Gap 10 mmol/L (8-16); Aspartate Amino Transferase 52 U/L (14-36); Bilirubin,Total 0.6 mg/dL (0.2-1.3); Blood Urea Nitrogen 13 mg/dL (7-17); Calcium 9.4 mg/dL (8.4-10.2); Carbon Dioxide 27 mmol/L (22-30); Chloride 96 mmol/L (98-107); Estimated Glomerular Filt Rate > 60; Glucose 123 mg/dL (65-110); Lipase 194 U/L (23-300); Potassium 3.3 mmol/L (3.4-5.0); Sodium 133 mmol/L (137-145)
[2023-02-20 09:17] LABS: Troponin I 0.662 ng/mL (0.000-0.034)
[2023-02-20 09:27] LABS: Influenza A QL RT-PCR Negative (Negative); Influenza B QL RT-PCR Negative (Negative); RSV RNA, RT-PCR Negative (Negative); SARS-CoV-2 RNA PCR Negative (Negative)
--- NOTE | 2023-02-20 09:29 | ED.CHESTPAIN ---
HPI - Chest Pain General Chief Complaint: Chest Pain Stated Complaint: SOB, upper back pain Time Seen by Provider: 02/20/23 08:54 History of Present Illness HPI narrative: 72-year-old female present to the emergency department for evaluation of cough congestion shortness of breath and chest pain. Patient reports over the past few months she has had worsening cough and congestion. Patient states that over last few days she has developed some increased chest pain. Patient describes a burning in her chest. Patient does follow-up with Cardiology but has no prior history of [place]. Patient reports she did have a stress test a few years ago. Patient denies any prior history of Angiocath. Related Data Home Medications Medication Instructions Recorded Confirmed glucosamine sulf dipot 1 cap PO DAILY 02/26/20 02/20/23 chlr,msm,chond 550 mg-C 30 mg-denisa 1 mg capsule (Glucosamine Chondroitin) folic acid 1 mg tablet 1 mg PO DAILY 11/29/21 02/20/23 linaclotide 72 mcg capsule 72 mcg PO DAILY 11/29/21 02/20/23 (Linzess) trazodone 50 mg tablet 50 mg PO DAILY 05/20/22 02/20/23 triamterene 37.5 1 tablet PO DAILY 05/20/22 02/20/23 mg-hydrochlorothiazide 25 mg tablet alprazolam 0.25 mg tablet 0.25 mg PO BID 06/08/22 02/20/23 naproxen 500 mg tablet 500 mg PO DAILY 06/08/22 02/20/23 fluoxetine 40 mg capsule 40 mg PO DAILY 02/20/23 02/20/23 Allergies Allergy/AdvReac Type Severity Reaction Status Date / Time Penicillins Allergy Severe swelling Verified 02/20/23 09:01 eyes oxycodone AdvReac Intermediate n/v, Verified 02/20/23 09:01 dizziness pregabalin [From Lyrica] AdvReac Intermediate Dizziness Verified 02/20/23 09:01 tramadol AdvReac Intermediate n/v, Verified 02/20/23 09:01 dizziness Review of Systems Review of Systems: All systems reviewed & are unremarkable except as noted in HPI and below PMFSH Past Medical History Medical History Anxiety Arthritis Generalized; primarily in knees and hips. Degenerative disc disease Depression Diverticulosis Dyslipidemia Endometriosis Gastroesophageal reflux disease Hypertension Meniere's disease Rectal polyp Seasonal allergies Surgical History Surgical History History of 3 sections History of cholecystectomy History of excision of pilonidal cyst History of right hip replacement History of total abdominal hysterectomy and bilateral salpingo-oophorectomy Family History Family History Mother Hypertension Cerebrovascular accident Hyperlipidemia Sibling Diabetes mellitus Social History Social History Social History: Surrogate medical decision maker: Toribio Kamara, spouse. Code status: Full code. Smoking status: Never smoker Alcohol intake: never Substance use: never Substance use type: does not use Do You Feel Safe in your Home?: Yes Lack of Transportation: No Lack of Food: Never True Current Housing: I Have Housing Concerned About Future Housing: No Difficulty Paying Gas/Electric Bills: No Difficulty Paying for Meds: No Currently Unemployed: No Education: Associate Degree Difficulty w/ Childcare or Family Care: No Additional living arrangements comments: . Lives with spouse in [place]. They have 4 children. Additional occupation/education comments: Retired from the [employer]. Spiritual care concerns: No Exam Narrative: APPEARANCE: Well appearing, no pain, no distress, well-nourished. HEAD: normocephalic, atraumatic. EYES: PERRLA/EOMI, conjunctivae clear. NOSE: Normal no drainage EARS:TMS clear with good light reflex. THROAT: Pharynx clear, no exudate. NECK: Supple. No adenopathy, no masses. RESPIRATORY: Airway patent, respirations nonlabored. Clear to auscultation
[2023-02-20 09:55] LABS: NT Pro B Type Natriuretic Pept 2480 pg/mL (19.9-100)
[2023-02-20] MEDS: ASPIRIN 81 MG CHEWABLE TABLET 324 MG PO (09:59)
[2023-02-20] MEDS: BELLADONNA ALK/PHENOB ELIX 10 ML, MAG HYDROX/ALUMINUM HYD/SIMETH 30 ML, LIDOCAINE HCL 2... PO (10:01)
[2023-02-20] MEDS: NITROGLYCERIN OINTMENT 1 INCH DOSE TRANSDERM (10:01)
--- NOTE | 2023-02-20 10:45 | ECG_ITS ---
Measurements Intervals [place] Rate: 60 P: [place]: 0 QRS: 21 QRSD: 89 T: 4 QT: 454 QTc: 455 Interpretive Statements JUNCTIONAL RHYTHM MODERATE ST DEPRESSION [0.05+ mV ST DEPRESSION] COMPARED TO ECG 02/20/2023 08:41:58 NO SIGNIFICANT CHANGES Electronically Signed On 02-21-2023 14:33:20 SEAM SEWER by Denzel Patel M.D.
[2023-02-20 12:37] LABS: Troponin I 0.745 ng/mL (0.000-0.034)
[2023-02-20] MEDS: ENOXAPARIN 80 MG/0.8 ML SYRINGE 70 MG SUB-Q (13:33)
--- NOTE | 2023-02-20 14:22 | LDADM ---
This patient, Maggi Kamara, was admitted to IMU Room 211 on 02/20/23 at 12:01. Plans for labor, pain management and were discussed with patient. Patient/family oriented to hospital policies and general routines including ID bracelet, bed and alarms, visiting hours, pain management, procedures, bathroom and other care routines, personal items, smoking policy, room service/diet and guest tray routines, security routines, and visiting hours. Patient/Family are encouraged to report perceived risks to care and to ask questions if they do not understand what they are told or what they should do. See OBIX for further documentation.
--- NOTE | 2023-02-20 14:24 | PM.IMHP ---
H&P: HPI History of Present Illness Date/Time: 02/20/23 18:00 Chief Complaint: Chest pain and shortness of breath. Narrative: This is a 72-year-old female hypertension, dyslipidemia (intolerance to statins and Repatha), gastroesophageal reflux disease, depression, and anxiety who presented to the emergency department for evaluation of chest pain and shortness of breath. The patient provides the following history. She endorses intermittent chest discomfort for months though it has become increasingly frequent the past 3 days. It is described as a pressure-like but occasional burning sensation in the substernal chest region. It does not radiate and she gives no significant aggravating or alleviating factors. At time she feels a bit of short of breath with the discomfort as well. She denies syncope, near syncope, sweats, nausea, and vomiting. She was afebrile on arrival with stable vital signs. EKG showed a junctional rhythm with mild moderate ST depressions and initial troponin of 0.662. The remainder of her labs were significant for a sodium of 133, potassium 3.3, chloride 96, proBNP 2480. She tested negative for influenza, RSV, and COVID. CT of the chest showed no evidence of pulmonary embolism. She was given aspirin 324 mg, nitro patch, and a GI cocktail. She was taken to the lab specialist this afternoon where she was found to have 80 to 90% stenosis at the ostium of the right coronary artery status post PCI with drug-eluting stent x1 per . During the catheterization she became a bit confused and was forgetful where she was at for a brief period of time. She was sent for a brain CT which showed no acute findings. By the time she returned from CT scan she was in much better condition and was alert and oriented x4 without concerning findings on neurologic exam. She has no chest pain at this time and has no current complaints. She specifically denies vertigo, visual changes, facial droop, difficulty speaking, focal weakness, and paresthesias. Review of Systems Review of Systems: Twelve systems were reviewed and are negative except for as per HPI. [facility] Past Medical History Medical History Anxiety Arthritis Generalized; primarily in knees and hips. Degenerative disc disease Depression Diverticulosis Dyslipidemia Endometriosis Gastroesophageal reflux disease Hypertension Meniere's disease Rectal polyp Seasonal allergies Surgical History Surgical History History of 3 sections History of cholecystectomy History of excision of pilonidal cyst History of right hip replacement History of total abdominal hysterectomy and bilateral salpingo-oophorectomy Family History Family History Mother Hypertension Cerebrovascular accident Hyperlipidemia Sibling Diabetes mellitus Social History Social History Social History: Surrogate medical decision maker: Toribio Diaz, spouse. Code status: Full code. Smoking status: Never smoker Alcohol intake: never Substance use: never Substance use type: does not use Do You Feel Safe in your Home?: Yes Lack of Transportation: No Lack of Food: Never True Current Housing: I Have Housing Concerned About Future Housing: No Difficulty Paying Gas/Electric Bills: No Difficulty Paying for Meds: No Currently Unemployed: No Education: Associate Degree Difficulty w/ Childcare or Family Care: No Additional living arrangements comments: . Lives with spouse in [place]. They have 4 children. Additional occupation/education comments: Retired from the [employer]. Spiritual care concerns: No Meds Home Medications and Allergies Home Medications Medication Instructions Recorded Confirmed Type glucosamine sulf dipot 1 cap PO DA
--- NOTE | 2023-02-20 14:25 | PM.CNCAR ---
Assessment and Plan Assessment and plan (1) Non-ST elevated myocardial infarction: Code(s): I21.4 - Non-ST elevation (NSTEMI) myocardial infarction Status: Acute Assessment and Plan: Presented with NSTEMI. EKGs with what appears to be junctional rhythm with some mild ST depressions. No significant bradycardia with the junctional rhythm, hemodynamically stable. Although patient is a stable NSTEMI, since we had the cardiac cath team called in for a STEMI, we elected to take patient to section laborer today after our STEMI case instead of waiting for cath to be done Wednesday (due to the holiday weekend). Cardiac catheterization showed significant obstructive ostial RCA disease. Underwent successful PCI with LOUIE x 1. Loaded with Plavix 600mg x 1 during case. Will continue ASA 81mg once daily and Plavix 75mg daily. Has not tolerated statins or Repatha in the past unfortunately. Will hold off on beta blockers given junctional rhythm. Post cath, patient got confused, asking Where am I? and Why am I here? . She could not remember having chest pain earlier. According to the , she does have episodes of confusion and not knowing where she is. However, given this occurred post cath, will obtain STAT CT head to rule out acute stroke, as stroke is a complication of cardiac cath. (2) Hypertension: Code(s): I10 - Essential (primary) hypertension Status: Acute Assessment and Plan: Stable (3) Dyslipidemia: Code(s): E78.5 - Hyperlipidemia, unspecified Status: Acute Assessment and Plan: Has not tolerated statins or Repatha in the past unfortunately. Plan Recommendations and plan discussed with Hospitalist. Patient to follow up with Dr. Richards after discharge. History of Present Illness History of Present Illness Consult date/time: 02/20/23 14:25 Requesting physician: Waldo Loomis MD Consult reason: chest pain Reason For Visit: NSTEMI Narrative: We are consulted for chest pain. This is a 72 year old female with Meniere's disease, GERD, hyperlipidemia with statin intolerance (did not even tolerate Repatha in the past) who presented to [facility] with chest pain. Follows with Dr. Richards in the office. Has had a negative stress test in the past. Patient reports substernal chest pressure that began a few days ago. It feels like a pressure. EKGs obtained in the ER show likely junctional rhythm with mild-moderate ST depressions. Troponins of 0.662, 0.745. In the ED, she was given ASA 324mg, Nitropatch, GI cocktail. Patient states that her chest pain resolved after getting these medications, and she has remained chest pain free since then. Review of Systems Review of Systems: All systems reviewed & are unremarkable except as noted in HPI and below (HPI) [facility] Past Medical History Medical History Anxiety Arthritis Generalized; primarily in knees and hips. Degenerative disc disease Depression Diverticulosis Dyslipidemia Endometriosis Gastroesophageal reflux disease Hypertension Meniere's disease Rectal polyp Seasonal allergies Surgical History Surgical History History of 3 sections History of cholecystectomy History of excision of pilonidal cyst History of right hip replacement History of total abdominal hysterectomy and bilateral salpingo-oophorectomy Family History Family History Mother Hypertension Cerebrovascular accident Hyperlipidemia Sibling Diabetes mellitus Social History Social History Social History: Surrogate medical decision maker: Toribio Kamara, spouse. Code status: Full code. Smoking status: Never smoker Alcohol intake: never Substance use: never Substance use type: does not use Do You Feel Safe in your Home?: Yes Lack of Transport
[2023-02-20] MEDS: POTASSIUM CHLORIDE 20 MEQ ER TABLET PO (14:57)
[2023-02-20 15:28] LABS: Troponin I 0.576 ng/mL (0.000-0.034)
[2023-02-20] MEDS: ONDANSETRON INJ 4 MG/2 ML VIAL IV PUSH (19:03)
--- NOTE | 2023-02-20 19:26 | WPDMODSED ---
Moderate Sedation Note-Pt Data Patient Data Diagnosis: NSTEMI Present Complaint: NSTEMI Procedure to be performed/Plan: Coronary angiography, left heart cath, +/- PCI Allergies Allergy/AdvReac Type Severity Reaction Status Date / Time Penicillins Allergy Severe swelling Verified 02/20/23 09:01 eyes oxycodone AdvReac Intermediate n/v, Verified 02/20/23 09:01 dizziness pregabalin [From Lyrica] AdvReac Intermediate Dizziness Verified 02/20/23 09:01 tramadol AdvReac Intermediate n/v, Verified 02/20/23 09:01 dizziness Home Medications Medication Instructions Recorded Confirmed Type glucosamine sulf dipot 1 cap PO DAILY 02/26/20 02/20/23 History chlr,msm,chond 550 mg-C 30 mg-denisa 1 mg capsule (Glucosamine Chondroitin) folic acid 1 mg tablet 1 mg PO DAILY 11/29/21 02/20/23 History linaclotide 72 mcg capsule 72 mcg PO DAILY 11/29/21 02/20/23 History (Linzess) trazodone 50 mg tablet 50 mg PO DAILY 05/20/22 02/20/23 History triamterene 37.5 1 tablet PO DAILY 05/20/22 02/20/23 History mg-hydrochlorothiazide 25 mg tablet alprazolam 0.25 mg tablet 0.25 mg PO BID 06/08/22 02/20/23 History naproxen 500 mg tablet 500 mg PO DAILY 06/08/22 02/20/23 History fluoxetine 40 mg capsule 40 mg PO DAILY 02/20/23 02/20/23 History Current Medications: Active Medications Acetaminophen (Acetaminophen 325 Mg Tablet) 650 mg PO Q6H PRN PRN Reason: Mild Pain (1-3) or Fever Alprazolam (Alprazolam (*Crx) 0.25 Mg Tablet) 0.25 mg PO BID NIKO Aspirin (Aspirin 81 Mg Enteric Tablet) 81 mg PO QAM NIKO Clopidogrel Bisulfate (Clopidogrel Bisulfate 75 Mg Tablet) 75 mg PO QAM NIKO Fluoxetine HCl (Fluoxetine Hcl 20 Mg Capsule) 40 mg PO DAILY NIKO Folic Acid (Folic Acid 1 Mg Tablet) 1 mg PO DAILY NIKO Linaclotide (Linaclotide 72 Mcg Capsule) 72 mcg PO DAILY@0630 NIKO Non-Formulary Medication (Nonformulary Nutritional Supplement) 1 each XX PRN PRN PRN Reason: PROTOCOL Stop: 02/21/23 17:13 Ondansetron HCl (Ondansetron Inj 4 Mg/2 Ml Vial) 4 mg IV PUSH Q4H PRN PRN Reason: Nausea Trazodone HCl (Trazodone Hcl 50 Mg Tablet) 50 mg PO DAILY NIKO Sedation/Anesthesia: No previous sedation/anesthesia problems (including family history). [facility] Past Medical History Medical History Anxiety Arthritis Generalized; primarily in knees and hips. Degenerative disc disease Depression Diverticulosis Dyslipidemia Endometriosis Gastroesophageal reflux disease Hypertension Meniere's disease Rectal polyp Seasonal allergies Surgical History Surgical History History of 3 sections History of cholecystectomy History of excision of pilonidal cyst History of right hip replacement History of total abdominal hysterectomy and bilateral salpingo-oophorectomy Family History Family History Mother Hypertension Cerebrovascular accident Hyperlipidemia Sibling Diabetes mellitus Social History Social History Social History: Surrogate medical decision maker: Toribio Kamara, spouse. Code status: Full code. Smoking status: Never smoker Alcohol intake: never Substance use: never Substance use type: does not use Do You Feel Safe in your Home?: Yes Lack of Transportation: No Lack of Food: Never True Current Housing: I Have Housing Concerned About Future Housing: No Difficulty Paying Gas/Electric Bills: No Difficulty Paying for Meds: No Currently Unemployed: No Education: Associate Degree Difficulty w/ Childcare or Family Care: No Additional living arrangements comments: . Lives with spouse in [place]. They have 4 children. Additional occupation/education comments: Retired from the [employer]. Spiritual care concerns: No Mod Sed Physical Exam Physical Exam Pre Procedural Exam:
--- NOTE | 2023-02-20 19:27 | WPDCARDPROC ---
Cardiac Cath Procedure Note Date of procedure:: 02/20/23 Performing physician:: CATHETERIZATION LABORATORY REPORT Procedure Date: 02/20/2023 Punch Press Operator: Denzel Patel M.D., [facility]? Referring Physician: Denzel Patel M.D. ? Anesthesia: Versed and Fentanyl were ordered and given in my presence at 16:54, procedure ended at 18:25. Supervision of nurse monitored moderate sedation with Versed and Fentanyl was provided for 91 minutes. Total of Versed 1mg and Fentanyl 50mcg were administered by the Utility Spray Operator RN Baljinder Ferraro. Pre-op Diagnosis: NSTEMI Post-op Diagnosis: Significant ostial RCA disease s/p PCI with LOUIE x 1 Procedure(s): 1. Moderate sedation 2. Ultrasound-guided access of the right common femoral artery 3. Coronary angiography 4. IVUS of the RCA 5. PCI of the RCA with LOUIE x 1 6. Angioseal closure of the right common femoral artery Access Site: Right common femoral artery (Radial access was not attempted as we are out of TR bands) Brief History and Clinical Indications: Patient is a 72 year old female who is referred for [facility] for NSTEMI. All risks, benefits and alternatives to left heart catheterization with or without percutaneous coronary intervention was discussed at length with the patient. Risk of complications including but not limited to bleeding, infection, arrhythmia, stroke, worsening kidney function, blood loss, groin hematoma, limb loss, emergency coronary artery bypass grafting, and even were discussed with the patient and all questions were answered. The patient understood and wished to proceed. Time out called, patient name, date of , medical record number, allergies, procedure performed, identify Punch Press Operator, patient and staff member concurred with accurate data, procedure carried on. Findings: LEFT HEART CATHETERIZATION FINDINGS: 1. Left main: The left main coronary artery is widely patent without any significant obstructive disease. 2. Left anterior descending: The LAD and the diagonal branches have luminal irregularities without any significant obstructive angiographic disease. 3. Ramus: Luminal irregularities. 4. Left circumflex: The left circumflex artery and the main marginal branches have luminal irregularities without any significant obstructive angiographic disease. 5. Right coronary artery: The RCA is the dominant vessel. The ostium of the RCA has significant 80-90% stenosis. Remainder of the RCA has mild diffuse disease. Description of Procedure and PCI: Informed consent signed and placed in the chart. Patient transferred to label drier room. Prepped and draped in usual sterile fashion. 2% lidocaine in right groin area. Micropuncture needle used to access right common femoral artery with Seldinger technique under fluoroscopic and ultrasound guidance. J wire advanced, micropuncture cannula placed. Right iliofemoral angiogram performed, access confirmed and micropuncture cannula exchanged for 5-FR sheath. 5F FL 4 diagnostic catheter engaged Left Main Coronary Artery. Unable to engage the RCA with a 5F FR 4 diagnostic catheter. 5F WRP diagnostic catheter engaged Right Coronary Artery, however, it was a very difficult engagement as there was pressure dampening with catheter engagement. Multiple orthogonal angiogram obtained and reviewed IC NTG 300mcg was administered to rule out spasm of the ostial RCA. Angiogram obtained after the IC NTG showed no changes, still with stenosis of RCA. Therefore, we proceeded with PCI. Angiomax was used for anticoagulation. 6F WRP guide catheter was used to intubate the RCA and a 0.014 [place] coronary wire was passed in to the distal RCA. Once wire was in the RCA, we disengaged the guide catheter to avoid pressure dampening. The lesion was pre-dilated with a 2.5mm x 15mm balloon inflated to high BENJAMIN. Multiple balloon inflations done. The lesion was again pre-dilated with a 3.5mm x 15mm balloon inflated to high BENJAMIN. Multiple balloon inflatio
[2023-02-20] MEDS: SODIUM CHLORIDE 0.9% IV 1,000 ML 125 ML IV CONT (20:48)
[2023-02-20] MEDS: ACETAMINOPHEN 325 MG TABLET 650 MG PO (20:59)
[2023-02-21] VITALS (9 sets, daily range): BP systolic 107–150; BP diastolic 48–62; PULSE 54–71; RESP 12–16; TEMP 36.4–36.8; O2SAT 93–98
[2023-02-21 04:55] LABS: Hematocrit 38.7 % (37.0-47.0); Hemoglobin 12.9 g/dL (12.0-15.0); Mean Corpuscular HGB Conc 33.3 g/dl (32-36); Mean Corpuscular Hemoglobin 31.9 pg (26-34); Mean Corpuscular Volume 95.8 fl (80-100); Mean Platelet Volume 9.5 fl (7.4-10.4); Platelet Count Result 481 k/mm3 (150-375); Red Blood Count 4.04 M/mm3 (4.2-5.4); Red Cell Distribution Width 13.8 % (11.5-14.5); White Blood Count 7.3 K/mm3 (4.5-10.0)
[2023-02-21 05:06] LABS: Alanine Aminotransferase 22 U/L (6-35); Albumin Level 3.7 g/dL (3.5-5.1); Alkaline Phosphatase 92 U/L (38-126); Anion Gap 10 mmol/L (8-16); Aspartate Amino Transferase 31 U/L (14-36); Bilirubin,Total 0.5 mg/dL (0.2-1.3); Blood Urea Nitrogen 9 mg/dL (7-17); Calcium 8.6 mg/dL (8.4-10.2); Carbon Dioxide 23 mmol/L (22-30); Chloride 102 mmol/L (98-107); Cholesterol 225 mg/dL (0-200); Estimated Glomerular Filt Rate > 60; Glucose 123 mg/dL (65-110); HDL Direct 49 mg/dL; Potassium 3.4 mmol/L (3.4-5.0); Sodium 135 mmol/L (137-145); Triglycerides 135 mg/dL (<150)
[2023-02-21 05:17] LABS: LDL Cholesterol Direct 134 mg/dL
[2023-02-21] MEDS: FOLIC ACID 1 MG TABLET PO (09:36)
[2023-02-21] MEDS: CLOPIDOGREL BISULFATE 75 MG TABLET PO (09:36)
[2023-02-21] MEDS: ASPIRIN 81 MG ENTERIC TABLET PO (09:36)
[2023-02-21] MEDS: FLUoxetine HCL 20 MG CAPSULE 40 MG PO (09:36)
--- NOTE | 2023-02-21 09:48 | PM.IMPN ---
Progress Note: A&P Assessment and Plan (1) Non-ST elevated myocardial infarction: Code(s): I21.4 - Non-ST elevation (NSTEMI) myocardial infarction Status: Acute Assessment and Plan: Troponin trend 0.662 --> 0.745 --> 0.576. EKG shows a junctional rhythm with moderate ST depressions. Received aspirin 324 mg, GI cocktail, and nitropaste in ED. Status post drug-eluting stent of the right coronary artery as per HPI. Will need dual antiplatelet therapy for 1 year; intolerant to statins and Repatha. (2) Transient confusion: Code(s): R41.0 - Disorientation, unspecified Status: Acute Assessment and Plan: Patient was a bit confused post catheterization as detailed in HPI. Stat brain CT did not show any acute findings. She is now are and oriented x4 with a normal neurologic exam. 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 Continue neurologic checks q.4 hours. (3) Electrolyte abnormality: Code(s): E87.8 - Other disorders of electrolyte and fluid balance, not elsewhere classified Status: Acute Assessment and Plan: Likely related to combined thiazide diuretic. Replace potassium and monitor. Triamterene-hydrochlorothiazide currently on hold. (4) Hypertension: Code(s): I10 - Essential (primary) hypertension Status: Acute Assessment and Plan: Blood pressures were reviewed and they are stable. Triamterene-hydrochlorothiazide on hold given electrolyte abnormalities. Blood pressure reviewed 02/21 (5) Dyslipidemia: Code(s): E78.5 - Hyperlipidemia, unspecified Status: Acute Assessment and Plan: Reports intolerance to statin and Repatha. (6) Depression with anxiety: Code(s): F41.8 - Other specified anxiety disorders Status: Acute Assessment and Plan: Continue fluoxetine and alprazolam. Plan DVT prophylaxis with Lovenox GI prophylaxis not indicated Code status full code Subjective Date/time seen: 02/21/23 09:48 Interval history: 72-year-old female hypertension, dyslipidemia (intolerance to statins and Repatha), gastroesophageal reflux disease, depression, and anxiety who presented to the emergency department for evaluation of chest pain and shortness of breath is currently being treated for an NSTEMI status post PCI of RCA with LOUIE 02/20. No overnight events noted. No nausea, vomiting or diarrhea. No fevers or chills. Review of Systems Review of Systems: 12 point review of systems was assessed and was negative except as noted in the HPI Exam Narrative: General: No acute distress, alert and oriented per baseline HEENT: Atraumatic, normocephalic, mucous membranes moist CV: Regular rate and rhythm, S1, S2 Lungs: Clear to auscultation bilaterally, no rales or crackles noted, no wheezes, good air entry Abdomen: Soft, nontender, nondistended Extremities: Normal to inspection Skin: No rashes noted, no lesions or wounds seen Psych: Euthymic, normal affect Objective Data Vital Signs Vital Signs: Vital Signs - 24 hr 02/20/23 10:31 02/20/23 11:35 02/20/23 12:45 Temperature Pulse Rate 58 L 62 58 L Respiratory Rate 13 13 16 Blood Pressure 115/69 118/63 118/63 Pulse Oximetry 96 97 96 Oxygen Delivery Oxygen Flow Rate 02/20/23 13:30 02/20/23 16:00 02/20/23 16:00 Temperature Pulse Rate 60 75 Respiratory Rate 14 Blood Pressure 125/61 Pulse Oximetry 97 Oxygen Delivery Room Air Oxygen Flow Rate 02/20/23 16:00 02/20/23 18:45 02/20/23 19:00 Temperature 98.8 F Pulse Rate 59 L 53 L 59 L Respiratory Rate 16 12 12 Blood Pressure 142/57 H 139/72 133/61 Pulse Oximetry 97 97 98 Oxygen Delivery Room Air Room Air Oxygen Flow Rate 02/20/23 19:15 02/20/23 19:30 02/20/23 20:00 Temperature 97.9 F Pulse Rate 60 57 L 51 L Respiratory Rate 16 16 16 Blood Pressure 140/60 141/75 H 157/70 H Pulse Oximetry 96 98 10
--- NOTE | 2023-02-21 12:14 | PM.DS ---
DS: Admitting Diagnosis Discharge Date 02/20/23 Admitting Diagnosis chest pain DS: Discharge Diagnosis Discharge Diagnosis (1) Non-ST elevated myocardial infarction: Code(s): I21.4 - Non-ST elevation (NSTEMI) myocardial infarction Status: Acute Assessment and Plan: Troponin trend 0.662 --> 0.745 --> 0.576. EKG shows a junctional rhythm with moderate ST depressions. Received aspirin 324 mg, GI cocktail, and nitropaste in ED. Status post drug-eluting stent of the right coronary artery as per HPI. Will need dual antiplatelet therapy for 1 year; intolerant to statins and Repatha. (2) Transient confusion: Code(s): R41.0 - Disorientation, unspecified Status: Acute Assessment and Plan: Patient was a bit confused post catheterization as detailed in HPI. Stat brain CT did not show any acute findings. She is now are and oriented x4 with a normal neurologic exam. 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 Continue neurologic checks q.4 hours. (3) Electrolyte abnormality: Code(s): E87.8 - Other disorders of electrolyte and fluid balance, not elsewhere classified Status: Acute Assessment and Plan: Likely related to combined thiazide diuretic. Replace potassium and monitor. Triamterene-hydrochlorothiazide currently on hold. (4) Hypertension: Code(s): I10 - Essential (primary) hypertension Status: Acute Assessment and Plan: Blood pressures were reviewed and they are stable. Triamterene-hydrochlorothiazide on hold given electrolyte abnormalities. Blood pressure reviewed 02/21 (5) Dyslipidemia: Code(s): E78.5 - Hyperlipidemia, unspecified Status: Acute Assessment and Plan: Reports intolerance to statin and Repatha. (6) Depression with anxiety: Code(s): F41.8 - Other specified anxiety disorders Status: Acute Assessment and Plan: Continue fluoxetine and alprazolam. Plan DVT prophylaxis with Lovenox GI prophylaxis not indicated Code status full code DS: Summary Hospital Course Hospital Course: 72-year-old female hypertension, dyslipidemia (intolerance to statins and Repatha), gastroesophageal reflux disease, depression, and anxiety who presented to the emergency department for evaluation of chest pain and shortness of breath is currently being treated for an NSTEMI status post PCI of RCA with LOUIE 02/20. Troponin trend 0.662 --> 0.745 --> 0.576. EKG shows a junctional rhythm with moderate ST depressions. Received aspirin 324 mg, GI cocktail, and nitropaste in ED. Status post drug-eluting stent of the right coronary artery as per HPI. Will need dual antiplatelet therapy for 1 year; intolerant to statins and Repatha. All symptoms resolved and patient was discharged in stable condition with close outpatient follow-up by Cardiology. They are recommending dual antiplatelet therapy for 1 year, script written. Please see above and med rec for details. Time Spent with Patient Time attestation: Total time spent providing and/or coordinating discharge services: Exam Narrative: General: No acute distress, alert and oriented per baseline HEENT: Atraumatic, normocephalic, mucous membranes moist CV: Regular rate and rhythm, S1, S2 Lungs: Clear to auscultation bilaterally, no rales or crackles noted, no wheezes, good air entry Abdomen: Soft, nontender, nondistended Extremities: Normal to inspection Skin: No rashes noted, no lesions or wounds seen Psych: Euthymic, normal affect DS: Data Data Completed and Pending Labs on day of discharge: Labs from last 24 hours 02/21/23 02/20/23 02/20/23 04:48 14:53 12:04 WBC 7.3 RBC 4.04 L Hgb 12.9 Hct 38.7 MCV 95.8 MCH 31.9 MCHC 33.3 RDW 13.8 Plt Count 481 H MPV 9.5 Sodium 135 L Potassium 3.4 Chloride 102 Carbon Dioxide 23 Anion Gap 10 BUN 9 Creatinine 0.
== END 2023-02-21 13:58 | disposition home or self-care (01) ==
LOC: ANHED 09:29 → ANHIMU 12:26
PROVIDERS: Internal Medicine; Physician Assistant; Admitting Provider Student in an Organized Health Care Education/Training Program; Emergency Provider Emergency Medicine; PCP Nurse Practitioner Family; Visit Provider Student in an Organized Health Care Education/Training Program
PROC: (CPT 93454; principal; 2023-02-20 16:00)
DX: I21.4 Non-ST elevation (NSTEMI) myocardial infarction (principal); R41.0 Disorientation, unspecified; E87.8 Other disorders of electrolyte and fluid balance, not elsewhere classified; I10 Essential (primary) hypertension; R79.89 Other specified abnormal findings of blood chemistry; I49.2 Junctional premature depolarization; F41.9 Anxiety disorder, unspecified; F32.A Depression, unspecified; E78.5 Hyperlipidemia, unspecified; H81.09 Meniere's disease, unspecified ear; Z20.822 Contact with and (suspected) exposure to COVID-19; R94.31 Abnormal electrocardiogram [ECG] [EKG]; N80.9 Endometriosis, unspecified; K21.9 Gastro-esophageal reflux disease without esophagitis; M19.90 Unspecified osteoarthritis, unspecified site; Z79.1 Long term (current) use of non-steroidal anti-inflammatories (NSAID); Z79.899 Other long term (current) drug therapy; Z82.49 Family history of ischemic heart disease and other diseases of the circulatory system; Z83.438 Family history of other disorder of lipoprotein metabolism and other lipidemia
CPT/HCPCS: 36415; 70450; 71046; 71275; 80053; 80061; 83690; 83735; 83880; 84484; 85025; 85027; 85610; 85730; 87637; 92978; 93005; 93454; 96372; 99285; A9270; C1725; C1753; C1760; C1769; C1874; C1887; C1894; C9600; G0269; G0378; J0461; J0583; J1644; J1650; J2250; J2405; J3010; J7030; J7040; Q9967

== ENCOUNTER 2023-02-24 12:39 | Emergency (ER) | payer MEDICARE, OTHER, SELFPAY ==
[2023-02-24] VITALS (13 sets, daily range): BP systolic 126–168; BP diastolic 48–81; PULSE 67–75; RESP 12–22; TEMP 36.3–37.3; O2SAT 92–96
--- NOTE | ~2023-02-24 | CT_ITS ---
EXAMINATION: CT brain wo con DATE: 02/24/2023 13:12 INDICATION: Mental status changes and headaches TECHNIQUE: Computed tomography (CT) of the head was performed without intravenous contrast. Sagittal and coronal reconstructions were performed. The mA was adjusted according to patient size. Iterative reconstruction technique was employed. The dose-length product was 605.33 mGy-cm. COMPARISON: 02/20/2023 FINDINGS: No acute intracranial hemorrhage, acute infarction or abnormal extra axial fluid collection. There is mild scattered white matter hypoattenuation consistent with chronic small vessel ischemic disease. S ymmetric prominence of the sulci and subarachnoid spaces overlying the convexities consistent with mi ld to moderate age-appropriate diffuse cerebral volume loss. Ventricles are normal and symmetric. No mass/mass effect. Changes of bilateral intraocular lens replacement. The orbits and mastoid air cell s are normal. There is a small amount of bubbly mucus in the right sphenoid sinus. Small mucous reten tion cyst at the anterior left ethmoid sinus. Intracranial calcified cerebral atherosclerosis is note d. IMPRESSION: 1. No acute intracranial process. 2. Age-related changes including mild to moderate diffuse volume loss and mild scattered white matter hypoattenuation consistent with chronic small vessel ischemic disease. Reviewed, dictated and finalized at location A. STRIAL ENGINEERING PROFESSOR IMPRESSION: 1. No acute intracranial process. 2. Age-related changes including mild to moderate diffuse volume loss and mild scattered white matter hypoattenuation consistent with chronic small vessel isc hemic disease.
--- NOTE | ~2023-02-24 | XR_ITS ---
XR chest 2V DATE: 02/24/2023 14:46 INDICATION: Cough. Stent placed 4 days ago. TECHNIQUE: PA and lateral views COMPARISON: 02/20/2023 CTA chest 02/20/2023 2 view chest FINDINGS: Normal heart size. Mild thoracic aortic calcification and unfolding. No hilar or mediastinal enlargement. No pulmonary infiltrate or consolidation, pleural effusion or pulmonary vascular congestion or pneumo thorax is detected. Status post cholecystectomy. Osteopenia. IMPRESSION: No active cardiopulmonary disease Aortic atherosclerosis Osteopenia Status post cholecystectomy Reviewed, dictated and finalized at location B. MATIC OVEN OPERATOR
--- NOTE | ~2023-02-24 | CT_ITS ---
EXAMINATION: CTA brain carotid DATE: 02/24/2023 14:39 INDICATION: Headache. TECHNIQUE: Computed tomographic angiography (CTA) of the head was performed with 100 mL Omnipaque-350 intravenous contrast. CTA of the neck was performed with intravenous contrast. Automated exposure co ntrol and iterative reconstruction technique were employed. The dose-length product was 1085.67 mGy-c m. Maximum intensity projection and volume rendered 3D-reconstructions were created by the technFlared3Di st on a separate workstation. COMPARISON: Head CT 02/24/2023 FINDINGS: HEAD CTA: There is no intracranial hemorrhage, acute infarction, or abnormal intracranial mass lesion . There are scattered areas of low attenuation in the cerebral white matter, which is within normal l imits for the patient's age. The ventricles are normal in size. There is mild mucosal thickening in t he paranasal sinuses. There are likely changes of ocular lens replacement surgeries. The mastoid air cells are normal. The vertebral arteries dominant. There is no significant stenosis of basilar artery or the posterior cerebral arteries. There is no significant stenosis of the intracranial internal ca rotid arteries or anterior or middle cerebral arteries. Right A1 anterior cerebral artery segment is absent, a normal variant. Anterior communicating artery is normal. NECK CTA: There are no pathologically enlarged lymph nodes. There is no significant stenosis of the v ertebral arteries. There is plaque in the proximal internal carotid arteries. There is 0% stenosis of the proximal right internal carotid artery relative to normal distal artery lumen diameter (NASCET c riteria). There is 0% stenosis of the proximal left internal carotid artery relative to normal distal artery lumen diameter. There is moderate cervical spondylosis. IMPRESSION: 1. Normal aging brain. 2. No aneurysm or significant intracranial arterial stenosis. 3. 0% stenosis of the proximal internal carotid arteries relative to normal distal artery lumen diame ters (NASCET criteria). Reviewed, dictated and finalized at location E. NG INSPECTOR IMPRESSION: 1. Normal aging brain. 2. No aneurysm or significant intracranial arterial stenosis. 3. 0% stenosis of the proximal internal carotid arteries relative to normal dis nati artery lumen diameters (NASCET criteria).
--- NOTE | 2023-02-24 12:55 | ED.GENADULT ---
HPI - General Adult General Chief complaint: Recheck/Abnormal Lab/Rx Stated complaint: sent from Corn Cutter Operator Time Seen by Provider: 02/24/23 12:55 History of Present Illness HPI narrative: Patient is a 72-year-old female with history of HTN, HLD, GERD, depression, anxiety recent NSTEMI here with multiple symptoms including a headache, cough, acid reflux, subjective fever. Patient notes that she has had a headache since being hospitalized on 02/20. She notes that it progressively worsened. It is now fairly severe and associated with some bilateral difficulty focusing her vision. She denies any light sensitivity, denies any trauma. She was started on Plavix in the hospital due to having an NSTEMI. She is additionally complaining of a subjective fever which she believes began today. She notes that she believes she had a cough which began yesterday as well. Since being discharged from the hospital she has noted some bilateral lower extremity weakness, does not believe it is worse on 1 side or the other, denies any facial droop. Today she contact her telex operator office regarding her headache and they recommended she come into the emergency department for additional evaluation. Patient has had no known sick contacts. Family does note few episodes of confusion over the last several years. The last 1 of these occurred when she was here in the hospital and it self resolved and she had a normal head CT during her hospitalization. No additional issues of confusion at home. Related Data Home Medications Medication Instructions Recorded Confirmed glucosamine sulf dipot 1 cap PO DAILY 02/26/20 02/20/23 chlr,msm,chond 550 mg-C 30 mg-denisa 1 mg capsule (Glucosamine Chondroitin) folic acid 1 mg tablet 1 mg PO DAILY 11/29/21 02/20/23 linaclotide 72 mcg capsule 72 mcg PO DAILY 11/29/21 02/20/23 (Linzess) trazodone 50 mg tablet 50 mg PO DAILY 05/20/22 02/20/23 triamterene 37.5 1 tablet PO DAILY 05/20/22 02/20/23 mg-hydrochlorothiazide 25 mg tablet alprazolam 0.25 mg tablet 0.25 mg PO BID 06/08/22 02/20/23 fluoxetine 40 mg capsule 40 mg PO DAILY 02/20/23 02/20/23 Allergies Allergy/AdvReac Type Severity Reaction Status Date / Time Penicillins Allergy Severe swelling Verified 02/20/23 09:01 eyes oxycodone AdvReac Intermediate n/v, Verified 02/20/23 09:01 dizziness pregabalin [From Lyrica] AdvReac Intermediate Dizziness Verified 02/20/23 09:01 tramadol AdvReac Intermediate n/v, Verified 02/20/23 09:01 dizziness Review of Systems Review of Systems: All systems reviewed & are unremarkable except as noted in HPI and below PMFSH Past Medical History Medical History Anxiety Arthritis Generalized; primarily in knees and hips. Degenerative disc disease Depression Diverticulosis Dyslipidemia Endometriosis Gastroesophageal reflux disease Hypertension Meniere's disease Rectal polyp Seasonal allergies Surgical History Surgical History History of 3 sections History of cholecystectomy History of excision of pilonidal cyst History of right hip replacement History of total abdominal hysterectomy and bilateral salpingo-oophorectomy Family History Family History Mother Hypertension Cerebrovascular accident Hyperlipidemia Sibling Diabetes mellitus Social History Social History Social History: Surrogate medical decision maker: Toribio Asad, spouse. Code status: Full code. Smoking status: Never smoker Alcohol intake: never Substance use: never Substance use type: does not use Do You Feel Safe in your Home?: Yes Lack of Transportation: No Lack of Food: Never True Current Housing: I Have Housing Concerned About Future Housing: No Difficulty Paying Gas
[2023-02-24 13:28] LABS: Glucose Point of Care 85 mg/dl (65-105)
[2023-02-24 13:40] LABS: Appearance Urine Clear (Clear); Bacteria Urine None Seen /hpf; Bilirubin Urine Negative (Negative); Blood Urine Trace (Negative); Color Urine Yellow (Yellow); Glucose Urine UA Negative (Negative); Ketones Urine 1+ mg/dL (Negative); Leukocyte Esterase Ur Negative LEU/UL (Negative); Nitrate Urine Negative (Negative); Non Pathogenic Casts 0-2; Protein Urine Negative (Negative); RBC Urine 0-2 /hpf (0-2); Squamous Epithelial Cell Urine None seen /hpf (Few); WBC Urine 0-5 /hpf; pH Urine 8.5 (5.0-9.0)
[2023-02-24 13:43] LABS: Add Urine Microscopic? YES
--- NOTE | 2023-02-24 13:43 | ECG_ITS ---
Measurements Intervals [place] Rate: 75 P: -8 MO: 120 QRS: 5 QRSD: 92 T: 7 QT: 381 QTc: 426 Interpretive Statements SINUS RHYTHM CONSIDER INFERIOR INFARCT, AGE INDETERMINATE BASELINE ARTIFACT- I, II, AVR, V1, V3-V4 ABNORMAL ECG COMPARED TO ECG 02/20/2023 10:55:35 SINUS RHYTHM NOW PRESENT Electronically Signed On 02-24-2023 13:53:07 CONSERVATOR ARTIFACTS by Rodrigue Singh D.O.
--- NOTE | 2023-02-24 13:43 | PC.NURSE ---
pt c/o some chest pressure
[2023-02-24 13:45] LABS: Influenza A QL RT-PCR Negative (Negative); Influenza B QL RT-PCR Negative (Negative); RSV RNA, RT-PCR Negative (Negative); SARS-CoV-2 RNA PCR Negative (Negative)
[2023-02-24 13:56] LABS: Basophils Percent Auto 0.3 % (0.2-1.2); Eosinophils Absolute Auto 0.1 K/mm3 (0-0.3); Eosinophils Percent Auto 0.5 % (0-4.4); Hematocrit 37.9 % (37.0-47.0); Hemoglobin 12.7 g/dL (12.0-15.0); Immature Granulocyte Absolute 0.06 K/mm3 (0.00-0.031); Immature Granulocyte Percent A 0.6 % (0-0.5); Lymphocytes Absolute Auto 1.14 K/mm3 (0.9-3.2); Lymphocytes Percent Auto 11.7 % (18.3-44.2); Mean Corpuscular HGB Conc 33.5 g/dl (32-36); Mean Corpuscular Hemoglobin 32.2 pg (26-34); Mean Corpuscular Volume 95.9 fl (80-100); Mean Platelet Volume 9.2 fl (7.4-10.4); Monocytes Absolute Auto 0.7 K/mm3 (0.1-0.6); Monocytes Percent Auto 7.5 % (2.6-8.5); Neutrophils Absolute Auto 7.8 K/mm3 (1.3-6.7); Neutrophils Percent Auto 79.4 % (45.5-73.1); Platelet Count Result 481 k/mm3 (150-375); Red Blood Count 3.95 M/mm3 (4.2-5.4); Red Cell Distribution Width 13.8 % (11.5-14.5); White Blood Count 9.8 K/mm3 (4.5-10.0)
[2023-02-24 14:02] LABS: Partial Thromboplastin Time 25.8 SECONDS (22.3-36.8); Prothrombin Time 13.6 Seconds (11.1-14.7)
[2023-02-24 14:11] LABS: Alanine Aminotransferase 23 U/L (6-35); Alkaline Phosphatase 83 U/L (38-126); Anion Gap 9 mmol/L (8-16); Aspartate Amino Transferase 42 U/L (14-36); Bilirubin,Total 0.7 mg/dL (0.2-1.3); Blood Urea Nitrogen 13 mg/dL (7-17); Calcium 9.5 mg/dL (8.4-10.2); Carbon Dioxide 33 mmol/L (22-30); Chloride 92 mmol/L (98-107); Estimated Glomerular Filt Rate > 60; Glucose 89 mg/dL (65-110); Magnesium 1.8 mg/dL (1.6-2.3); Potassium 3.2 mmol/L (3.4-5.0); Sodium 134 mmol/L (137-145)
[2023-02-24 14:22] LABS: Troponin I < 0.012 ng/mL (0.000-0.034)
[2023-02-24] MEDS: diphenhydrAMINE HCl INJ 50 MG/ML VIAL 25 MG IV PUSH (15:05)
[2023-02-24] MEDS: METOCLOPRAMIDE HCL INJ 10 MG/2 ML VIAL IV PUSH (15:05)
[2023-02-24] MEDS: ACETAMINOPHEN 500 MG TABLET 1000 MG PO (15:05)
[2023-02-24] MEDS: MAGNESIUM SULF 2 GM/WATER 50ML 2 GM/50 ML BAG IVPB (15:25)
[2023-02-24] MEDS: SODIUM CHLORIDE 0.9% IV 500 ML 250 ML (16:46)
--- NOTE | 2023-02-24 17:00 | ECG_ITS ---
Measurements Intervals [place] Rate: 68 P: 11 MO: 138 QRS: 18 QRSD: 93 T: 23 QT: 416 QTc: 443 Interpretive Statements SINUS RHYTHM CONSIDER INFERIOR INFARCT, AGE INDETERMINATE BASELINE ARTIFACT- I, AVR, AVL ABNORMAL ECG COMPARED TO ECG 02/24/2023 13:47:46 NO SIGNIFICANT CHANGES Electronically Signed On 02-24-2023 18:50:28 POLICE CAPTAIN PRECINCT by Rodrigue Singh D.O.
[2023-02-24 17:33] LABS: Troponin I < 0.012 ng/mL (0.000-0.034)
== END 2023-02-24 17:48 | disposition home or self-care (01) ==
PROVIDERS: Emergency Provider Student in an Organized Health Care Education/Training Program; PCP Nurse Practitioner Family
DX: R51.9 Headache, unspecified (principal); Z20.822 Contact with and (suspected) exposure to COVID-19; I10 Essential (primary) hypertension; I25.2 Old myocardial infarction; E78.5 Hyperlipidemia, unspecified; K21.9 Gastro-esophageal reflux disease without esophagitis; F41.9 Anxiety disorder, unspecified; M17.0 Bilateral primary osteoarthritis of knee; M16.0 Bilateral primary osteoarthritis of hip; Z87.19 Personal history of other diseases of the digestive system; Z90.49 Acquired absence of other specified parts of digestive tract; Z90.710 Acquired absence of both cervix and uterus; Z90.722 Acquired absence of ovaries, bilateral; Z79.02 Long term (current) use of antithrombotics/antiplatelets; I70.0 Atherosclerosis of aorta; M85.88 Other specified disorders of bone density and structure, other site; R94.31 Abnormal electrocardiogram [ECG] [EKG]
CPT/HCPCS: 36415; 70450; 70496; 70498; 71046; 80053; 81001; 82948; 83735; 84484; 85025; 85610; 85730; 87637; 93005; 96365; 96366; 96375; 99284; A9270; J1200; J2765; J3475; J7040; Q9967

== ENCOUNTER 2023-03-26 08:31 | Outpatient (CLI) | payer MEDICARE, OTHER, SELFPAY ==
[2023-03-26 09:17] LABS: Basophils Percent Auto 0.2 % (0.2-1.2); Eosinophils Percent Auto 0.1 % (0-4.4); Hematocrit 39.5 % (37.0-47.0); Hemoglobin 13.5 g/dL (12.0-15.0); Immature Granulocyte Percent A 0.9 % (0-0.5); Lymphocytes Absolute Auto 0.89 K/mm3 (0.9-3.2); Lymphocytes Percent Auto 8.3 % (18.3-44.2); Mean Corpuscular HGB Conc 34.2 g/dl (32-36); Mean Corpuscular Hemoglobin 31.9 pg (26-34); Mean Corpuscular Volume 93.4 fl (80-100); Monocytes Absolute Auto 0.9 K/mm3 (0.1-0.6); Monocytes Percent Auto 8.6 % (2.6-8.5); Neutrophils Absolute Auto 8.8 K/mm3 (1.3-6.7); Neutrophils Percent Auto 81.9 % (45.5-73.1); Platelet Count Result 346 k/mm3 (150-375); Red Blood Count 4.23 M/mm3 (4.2-5.4); Red Cell Distribution Width 13.8 % (11.5-14.5); White Blood Count 10.8 K/mm3 (4.5-10.0)
== END 2023-03-26 08:32 | disposition home or self-care (01) ==
PROVIDERS: PCP Nurse Practitioner Family
DX: R19.4 Change in bowel habit (principal); R10.9 Unspecified abdominal pain; K92.1 Melena
CPT/HCPCS: 36415; 85025

== ENCOUNTER 2023-04-01 10:50 | Outpatient (CLI) | payer MEDICARE, OTHER, SELFPAY ==
[2023-04-01 11:20] LABS: Appearance Urine Clear (Clear); Bacteria Urine None Seen /hpf; Bilirubin Urine Negative (Negative); Blood Urine Negative (Negative); Color Urine Yellow (Yellow); Glucose Urine UA Negative (Negative); Ketones Urine Negative (Negative); Leukocyte Esterase Ur 2+ LEU/UL (Negative); Nitrate Urine Negative (Negative); Non Pathogenic Casts 0-2; Protein Urine Negative (Negative); RBC Urine 0-2 /hpf (0-2); Specific Grav Ur 1.009 (1.001-1.035); Squamous Epithelial Cell Urine Occasional /hpf (Few); Urobilinogen Urine 0.2 mg/dL (<2.0); pH Urine 7.5 (5.0-9.0)
[2023-04-01 11:21] LABS: Add Urine Microscopic? YES
[2023-04-09 00:21] LABS: Calprotectin, Stool 16 mcg/g
== END 2023-04-01 10:51 | disposition home or self-care (01) ==
PROVIDERS: PCP Nurse Practitioner Family
DX: R19.4 Change in bowel habit (principal); R10.9 Unspecified abdominal pain; R19.7 Diarrhea, unspecified
CPT/HCPCS: 81001; 83993; 87045; 87086; 87427; 87449

== ENCOUNTER 2023-08-28 08:58 | Emergency (ER) | payer MEDICARE, OTHER, SELFPAY ==
--- NOTE | ~2023-08-28 | XR_ITS ---
EXAMINATION: XR abdomen/kub 1V DATE: 08/28/2023 09:46 INDICATION: Constipation. TECHNIQUE: A supine view of the abdomen on 2 radiographs was obtained. COMPARISON: CT abdomen and pelvis 09/06/2020 FINDINGS: There are no dilated loops of bowel. There is a moderate volume of stool in the colon. Surg ical clips in the right upper quadrant are likely from cholecystectomy. There is a total right hip ar throplasty. IMPRESSION: 1. Nonobstructive bowel gas pattern. Reviewed, dictated and finalized at location A.
[2023-08-28 09:13] VITALS: BP 137/70; PULSE 84; RESP 18; TEMP 36.4; O2SAT 100
--- NOTE | 2023-08-28 09:27 | ED.ABDPAIN ---
HPI - Abdominal Pain General Chief Complaint: Abdominal Pain Stated Complaint: constipation Time Seen by Provider: 08/28/23 09:27 Source: patient Mode of arrival: ambulatory Limitations: no limitations History of Present Illness HPI narrative: 72-year-old female presents with complaint of constipation. Patient reports history of constipation, takes Linzess daily. Has also been taking a daily stool softener. Started prednisone 5 days ago for joint inflammation and thinks has made constipation worse. States she has a Fleet's enema at home but read online and that she can get stronger prescription for some constipation prescribed. Patient reports she is uncomfortable. All systems reviewed and negative except as noted above. Related Data Home Medications Medication Instructions Recorded Confirmed glucosamine sulf dipot 1 cap PO DAILY 02/26/20 08/28/23 chlr,msm,chond 550 mg-C 30 mg-denisa 1 mg capsule (Glucosamine Chondroitin) folic acid 1 mg tablet 1 mg PO DAILY 11/29/21 08/28/23 linaclotide 72 mcg capsule 72 mcg PO DAILY 11/29/21 08/28/23 (Linzess) trazodone 50 mg tablet 50 mg PO DAILY 05/20/22 08/28/23 triamterene 37.5 1 tablet PO DAILY 05/20/22 08/28/23 mg-hydrochlorothiazide 25 mg tablet alprazolam 0.25 mg tablet 0.25 mg PO BID 06/08/22 08/28/23 fluoxetine 40 mg capsule 40 mg PO DAILY 02/20/23 08/28/23 prednisone 20 mg tablet 20 mg PO DIRECTED 08/28/23 08/28/23 Allergies Allergy/AdvReac Type Severity Reaction Status Date / Time Penicillins Allergy Severe swelling Verified 08/28/23 08:59 eyes oxycodone AdvReac Intermediate n/v, Verified 08/28/23 08:59 dizziness pregabalin [From Lyrica] AdvReac Intermediate Dizziness Verified 08/28/23 08:59 tramadol AdvReac Intermediate n/v, Verified 08/28/23 08:59 dizziness Review of Systems Review of Systems: CONSTITUTIONAL: Denies fever, chills, or sweats. EYES: Denies visual changes, redness, or discharge. ENT: Denies rhinorrhea, congestion, sore throat, or otalgia. CARDIOVASCULAR: Denies chest pain, palpitations, or edema. RESPIRATORY: Denies cough or dyspnea. GASTROINTESTINAL: Denies abdominal pain, nausea, vomiting, or diarrhea. Reports constipation. GENITOURINARY: Denies dysuria or hematuria. SKIN: Denies rash or itching. MUSCULOSKELETAL: Denies back pain, joint pain, or myalgia. NEUROLOGIC: Denies headache, numbness, or weakness. PSYCHIATRIC: Denies anxiety or depression. All other systems reviewed are negative, except as documented in HPI. [facility] Past Medical History Medical History Anxiety Arthritis Generalized; primarily in knees and hips. Degenerative disc disease Depression Diverticulosis Dyslipidemia Endometriosis Gastroesophageal reflux disease Hypertension Meniere's disease Rectal polyp Seasonal allergies Surgical History Surgical History History of 3 sections History of cholecystectomy History of excision of pilonidal cyst History of right hip replacement History of total abdominal hysterectomy and bilateral salpingo-oophorectomy Family History Family History Mother Hypertension Cerebrovascular accident Hyperlipidemia Sibling Diabetes mellitus Social History Social History Social History: Surrogate medical decision maker: Toribio Kamara, spouse. Code status: Full code. Smoking status: Never smoker Alcohol intake: never Substance use: never Substance use type: does not use Do You Feel Safe in your Home?: Yes Lack of Transportation: No Lack of Food: Never True Current Housing: I Have Housing Concerned About Future Housing: No Difficulty Paying Gas/Electric Bills: No Difficulty Paying for Meds: No Currently Unemployed: No Education: Associ
== END 2023-08-28 10:13 | disposition home or self-care (01) ==
PROVIDERS: Emergency Provider Nurse Practitioner Family; PCP Nurse Practitioner Family
DX: K59.00 Constipation, unspecified (principal); M17.0 Bilateral primary osteoarthritis of knee; M16.0 Bilateral primary osteoarthritis of hip; E78.5 Hyperlipidemia, unspecified; N80.9 Endometriosis, unspecified; K21.9 Gastro-esophageal reflux disease without esophagitis; I10 Essential (primary) hypertension; Z96.641 Presence of right artificial hip joint; F41.9 Anxiety disorder, unspecified; F32.A Depression, unspecified
CPT/HCPCS: 74018; 99213; G0463

== ENCOUNTER 2023-09-01 09:26 | Emergency (ER) | payer MEDICARE, OTHER, SELFPAY ==
[2023-09-01] VITALS (17 sets, daily range): BP systolic 125–161; BP diastolic 51–85; PULSE 83; RESP 18; TEMP 36.4; O2SAT 92–100
--- NOTE | ~2023-09-01 | CT_ITS ---
CT of the Abdomen and Pelvis: Indication: Abdominal pain Technique: 2.5 mm axial scans were obtained through the abdomen and pelvis following intravenous adm inistration of 100 cc of Omnipaque 350. Dose reduction technique was used on this scan by utilizing a utomated exposure control and iterative reconstruction technique. The dose-length product (DLP) was 4 80.92 mGy-cm. COMPARISON: 09/06/2020 Findings: Scans through the lung bases are unremarkable. Probable diffuse hepatic steatosis. Cholecystectomy clips present. The spleen, pancreas, adrenals and kidneys are within normal limits. No evidence of aortic aneurysm. No lymphadenopathy. No bowel obstruction or bowel wall thickening. Right colon and transverse colon are fluid-filled. Images through the pelvis were performed. Urinary bladder unremarkable. No pelvic mass seen. No ascit es. Impression: Possible diarrheal illness. Correlate clinically. Probable diffuse hepatic steatosis. Reviewed, dictated and finalized at [facility]. Impression: Possible diarrheal illness. Correlate clinically. Probable diffuse hepatic steatosis.
--- NOTE | 2023-09-01 10:29 | ED.GENADULT ---
HPI - General Adult General Chief complaint: Abdominal Pain Stated complaint: constipation Time Seen by Provider: 09/01/23 09:44 History of Present Illness HPI narrative: Maggi Kamara is a 72 y/o female who presents with reports of having lower abdominal pain more on the left lower side that started today. She states that she hasn't really had a BM since August 22 (10 days ago). She states that she is on Linzess and has been taking that daily and it has not helped. She states she had an xray done at an that showed stool in her rectum/inflamed and tried 3 enemas / Dulcolax at home with minimal results she states she has only passed string/ snake like stool with those efforts and today she started to have abdominal pain and nausea. Related Data Home Medications Medication Instructions Recorded Confirmed glucosamine sulf dipot 1 cap PO DAILY 02/26/20 08/28/23 chlr,msm,chond 550 mg-C 30 mg-denisa 1 mg capsule (Glucosamine Chondroitin) folic acid 1 mg tablet 1 mg PO DAILY 11/29/21 08/28/23 linaclotide 72 mcg capsule 72 mcg PO DAILY 11/29/21 08/28/23 (Linzess) trazodone 50 mg tablet 50 mg PO DAILY 05/20/22 08/28/23 triamterene 37.5 1 tablet PO DAILY 05/20/22 08/28/23 mg-hydrochlorothiazide 25 mg tablet alprazolam 0.25 mg tablet 0.25 mg PO BID 06/08/22 08/28/23 fluoxetine 40 mg capsule 40 mg PO DAILY 02/20/23 08/28/23 prednisone 20 mg tablet 20 mg PO DIRECTED 08/28/23 08/28/23 Allergies Allergy/AdvReac Type Severity Reaction Status Date / Time Penicillins Allergy Severe swelling Verified 08/28/23 08:59 eyes oxycodone AdvReac Intermediate n/v, Verified 08/28/23 08:59 dizziness pregabalin [From Lyrica] AdvReac Intermediate Dizziness Verified 08/28/23 08:59 tramadol AdvReac Intermediate n/v, Verified 08/28/23 08:59 dizziness Review of Systems Review of Systems: [facility] Past Medical History Medical History Anxiety Arthritis Generalized; primarily in knees and hips. Degenerative disc disease Depression Diverticulosis Dyslipidemia Endometriosis Gastroesophageal reflux disease Hypertension Meniere's disease Rectal polyp Seasonal allergies Surgical History Surgical History History of 3 sections History of cholecystectomy History of excision of pilonidal cyst History of right hip replacement History of total abdominal hysterectomy and bilateral salpingo-oophorectomy Family History Family History Mother Hypertension Cerebrovascular accident Hyperlipidemia Sibling Diabetes mellitus Social History Social History Social History: Surrogate medical decision maker: Toribio Kamara, spouse. Code status: Full code. Smoking status: Never smoker Alcohol intake: never Substance use: never Substance use type: does not use Do You Feel Safe in your Home?: Yes Lack of Transportation: No Lack of Food: Never True Current Housing: I Have Housing Concerned About Future Housing: No Difficulty Paying Gas/Electric Bills: No Difficulty Paying for Meds: No Currently Unemployed: No Education: Associate Degree Difficulty w/ Childcare or Family Care: No Additional living arrangements comments: . Lives with spouse in [place]. They have 4 children. Additional occupation/education comments: Retired from the [employer]. Spiritual care concerns: No Exam Narrative: GENERAL: well-nourished, and in no acute distress. HEAD: Normocephalic, atraumatic. EYES: PERRLA and EOMI. ENT: Nares clear, no rhinorrhea or epistaxis. Mucous membranes moist. Oropharynx without tonsillar hypertrophy exudate or other lesions. NECK: Supple. No adenopathy or masses. No carotid bruits or JVD CHEST: Clear to auscultation. No respiratory distress. No wheezes ra
[2023-09-01] MEDS: SODIUM CHLORIDE 0.9% IV 1,000 ML 999 ML IV CONT (10:37)
[2023-09-01 10:38] LABS: Basophils Percent Auto 0.3 % (0.2-1.2); Eosinophils Percent Auto 0.2 % (0-4.4); Hematocrit 41.3 % (37.0-47.0); Hemoglobin 14.1 g/dL (12.0-15.0); Immature Granulocyte Absolute 0.55 K/mm3 (0.00-0.031); Immature Granulocyte Percent A 4.3 % (0-0.5); Lymphocytes Absolute Auto 2.19 K/mm3 (0.9-3.2); Lymphocytes Percent Auto 17.2 % (18.3-44.2); Mean Corpuscular HGB Conc 34.1 g/dl (32-36); Mean Corpuscular Hemoglobin 32.3 pg (26-34); Mean Corpuscular Volume 94.7 fl (80-100); Mean Platelet Volume 9.1 fl (7.4-10.4); Monocytes Absolute Auto 1.1 K/mm3 (0.1-0.6); Monocytes Percent Auto 8.2 % (2.6-8.5); Neutrophils Absolute Auto 8.9 K/mm3 (1.3-6.7); Neutrophils Percent Auto 69.8 % (45.5-73.1); Platelet Count Result 479 k/mm3 (150-375); Red Blood Count 4.36 M/mm3 (4.2-5.4); Red Cell Distribution Width 13.2 % (11.5-14.5); White Blood Count 12.7 K/mm3 (4.5-10.0)
[2023-09-01] MEDS: ONDANSETRON INJ 4 MG/2 ML VIAL IV PUSH (10:38)
[2023-09-01] MEDS: KETOROLAC 30 MG/ML VIAL (*BKC) IV PUSH (10:38)
[2023-09-01] MEDS: FAMOTIDINE 20 MG/2 ML VIAL IV PUSH (10:38)
[2023-09-01 10:50] LABS: Alanine Aminotransferase 26 U/L (6-35); Albumin Level 4.5 g/dL (3.5-5.1); Alkaline Phosphatase 76 U/L (38-126); Anion Gap 11 mmol/L (4-12); Aspartate Amino Transferase 30 U/L (14-36); Bilirubin,Total 0.6 mg/dL (0.2-1.3); Blood Urea Nitrogen 23 mg/dL (7-17); Calcium 9.4 mg/dL (8.4-10.2); Carbon Dioxide 29 mmol/L (22-30); Chloride 91 mmol/L (98-107); Estimated Glomerular Filt Rate > 60; Glucose 89 mg/dL (65-110); Lactic Acid Reflex 1.3 mmol/L (0.7-2.0); Lipase 257 U/L (23-300); Potassium 3.6 mmol/L (3.4-5.0); Sodium 131 mmol/L (137-145)
[2023-09-01 10:54] LABS: Estimated Glomerular Filt Rate 55
[2023-09-01 11:23] LABS: Appearance Urine Clear (Clear); Bacteria Urine None Seen /hpf; Bilirubin Urine Negative (Negative); Blood Urine Negative (Negative); Color Urine Yellow (Yellow); Glucose Urine UA Negative (Negative); Ketones Urine Negative (Negative); Leukocyte Esterase Ur 2+ LEU/UL (Negative); Nitrate Urine Negative (Negative); Non Pathogenic Casts 0-2; Protein Urine Negative (Negative); Squamous Epithelial Cell Urine None Seen /hpf (Few); Urobilinogen Urine 0.2 mg/dL (<2.0); pH Urine 7.5 (5.0-9.0)
[2023-09-01 11:46] LABS: Add Urine Microscopic? YES
[2023-09-01] MEDS: NITROFURANTOIN MONOHYD MACROCR 100 MG CAP PO (12:46)
== END 2023-09-01 12:52 | disposition home or self-care (01) ==
PROVIDERS: Emergency Provider Nurse Practitioner Family; PCP Nurse Practitioner Family
DX: N30.01 Acute cystitis with hematuria (principal); E78.5 Hyperlipidemia, unspecified; I10 Essential (primary) hypertension; Z79.899 Other long term (current) drug therapy
CPT/HCPCS: 36415; 74177; 80053; 81001; 83605; 83690; 85025; 87077; 87086; 87088; 96361; 96374; 96375; 99284; A9270; J1885; J2405; J7030; Q9967

== ENCOUNTER 2023-10-05 11:50 | Outpatient (CLI) | payer MEDICARE, OTHER, SELFPAY ==
--- NOTE | ~2023-10-05 | XR_ITS ---
EXAM: XR hand LT 2V DATE: 10/05/2023 12:19 HISTORY: ARTHRALGIA . COMPARISON: None available. FINDINGS: Decreased mineralization. No fracture or dislocation. No lytic or blastic lesion. Scattere d arthritic changes typical of osteoarthritis, most notably in the interphalangeal joints of the thum bs and fingers and first CMC joints, moderate in the right thumb interphalangeal joint and right seco nd and third DIP joints. No erosion or periosteal change. Vascular calcifications. IMPRESSION: Osteopenia. Polyarticular osteoarthritis of the hands. Reviewed, dictated and finalized at location K.
--- NOTE | ~2023-10-05 | XR_ITS ---
EXAM: XR hand RT 2V DATE: 10/05/2023 12:19 HISTORY: ARTHRALGIA . COMPARISON: None available. FINDINGS: Decreased mineralization. No fracture or dislocation. No lytic or blastic lesion. Scattere d arthritic changes typical of osteoarthritis, most notably in the interphalangeal joints of the thum bs and fingers and first CMC joints, moderate in the right thumb interphalangeal joint and right seco nd and third DIP joints. No erosion or periosteal change. Vascular calcifications. IMPRESSION: Osteopenia. Polyarticular osteoarthritis of the hands. Reviewed, dictated and finalized at location K.
== END 2023-10-05 11:51 ==
PROVIDERS: PCP Physician Assistant; Visit Provider Physician Assistant
DX: M85.89 Other specified disorders of bone density and structure, multiple sites (principal); M19.042 Primary osteoarthritis, left hand; M19.041 Primary osteoarthritis, right hand
CPT/HCPCS: 73120

== ENCOUNTER 2023-12-20 11:08 | Outpatient (CLI) | payer MEDICARE, OTHER, SELFPAY ==
--- NOTE | ~2023-12-20 | XR_ITS ---
Left Hand Technique: PA, oblique, and lateral views were obtained. Clinical History: Pain Findings: No acute fracture or dislocation is seen. Osseous alignment is anatomic. There is mild dege nerative change throughout the interphalangeal joints of the fingers. Soft tissues are unremarkable. Impression: No fracture or dislocation. Degenerative changes, as above. Reviewed, dictated and finalized at location . Impression: No fracture or dislocation. Degenerative changes, as above.
--- NOTE | ~2023-12-20 | XR_ITS ---
XR cervical spine 4-5V Ordering provider: Anjelica Huntley, RECORDS OFFICER History: . Fall,acute pain . Comparison: None. FINDINGS: VERTEBRAL BODIES: Normal height and alignment. No visible fracture or subluxation. The dens is intact . Degenerative changes of the spine. DISK SPACES: Narrowing of the disc C5-C6 and C6-C7. Multilevel facet joint disease. Bilateral narrowi ng of the foramina at multiple levels. Multilevel uncovertebral joint osteoarthritic changes.. PARASPINOUS SOFT TISSUES: No prevertebral soft tissue swelling. IMPRESSION: No acute osseous abnormality cervical spine. Multilevel degenerative disc disease. Reviewed, dictated and finalized at location A.
--- NOTE | ~2023-12-20 | XR_ITS ---
3 VIEWS LUMBAR SPINE Ordering provider: Anjelica Huntley, CIGARETTE MACHINE FILLER History: . Fall,acute pain . Comparison: None. FINDINGS: VERTEBRAL BODIES:Highly suggestive fracture in the posterior aspect of T12 extending to the endplates and possibly the endotracheal CT or MRI evaluation advised. Slight loss of height is seen in L1. No visible subluxation. Degenerative changes of the spine. Mild dextroscoliosis. DISK SPACES: Narrowing of the disc spaces T12-L1, L1-L2, L2-L3, L3-4 and L4-L5. SOFT TISSUES: Aortic atherosclerotic changes. Right hip arthroplasty. Left hip osteoarthritic changes. IMPRESSION: Highly suggestive fracture of T12. MRI or CT evaluation advised. Anterior loss of height of L1. Multilevel degenerative disc disease. Reviewed, dictated and finalized at location A.
--- NOTE | ~2023-12-20 | XR_ITS ---
Thoracic spine: Clinical Indication: Back pain AP and lateral views were performed. Minimal chronic chronic wedging deformity of T11 noted. There is normal alignment of the vertebrae. There are mild degenerative disc changes of the thoracic spine. Paravertebral soft tissues appear nor mal. Impression: Mild wedging deformity at T11, likely chronic. Mild degenerative spondylosis. Reviewed, dictated and finalized at [facility]. Impression: Mild wedging deformity at T11, likely chronic. Mild degenerative spondylosis.
== END 2023-12-20 11:09 | disposition home or self-care (01) ==
LOC: MICIMG 11:11
PROVIDERS: PCP Nurse Practitioner Family; Visit Provider Nurse Practitioner Family
DX: M79.641 Pain in right hand (principal); M50.30 Other cervical disc degeneration, unspecified cervical region; M51.369 Other intervertebral disc degeneration, lumbar region without mention of lumbar back pain or lower extremity pain; M51.34 Other intervertebral disc degeneration, thoracic region
CPT/HCPCS: 72050; 72072; 72100; 73130

== ENCOUNTER 2023-12-31 13:08 | Outpatient (CLI) | payer MEDICARE, OTHER, SELFPAY ==
--- NOTE | ~2023-12-31 | CT_ITS ---
EXAMINATION: CT cervical spine wo con DATE: 12/31/2023 13:33 INDICATION: Closed fracture of 12th thoracic vertebra. TECHNIQUE: Computed tomography (CT) of the cervical spine was performed without intravenous contrast. Automated exposure control and iterative reconstruction technique were employed. The dose-length pro duct was 184.59 mGy-cm. COMPARISON: None FINDINGS: There is kyphosis of cervical spine. There is 3 degrees levocurvature of cervical spine. Ve rtebral body heights are normal. There is mildly decreased disc height at C3-C4, moderately decreased disc height at C4-C5, and severely decreased disc height at C5-C6 and C6-C7. The following disc leve ls are specifically discussed: C2-C3: There is no uncovertebral joint osteoarthritis. There is moderate left facet joint osteoarthri tis. There is no neural foraminal stenosis. There is no central canal stenosis. C3-C4: There is moderate right and mild left uncovertebral joint osteoarthritis. There is severe left facet joint osteoarthritis. There is mild left neural foraminal stenosis. There is mild central erasto l stenosis. C4-C5: There is severe right and mild left uncovertebral joint osteoarthritis. There is severe bilate ral facet joint osteoarthritis. There is mild bilateral neural foraminal stenosis. There is mild cent ral canal stenosis. C5-C6: There is severe bilateral uncovertebral joint osteoarthritis. There is mild right and severe l eft facet joint osteoarthritis. There is mild bilateral neural foraminal stenosis. There is mild cent ral canal stenosis. C6-C7: There is severe bilateral uncovertebral joint osteoarthritis. There is mild bilateral facet courtney int osteoarthritis. There is mild bilateral neural foraminal stenosis. There is mild central canal st enosis. C7-T1: There is no uncovertebral joint osteoarthritis. There is severe bilateral facet joint osteoart hritis. There is no neural foraminal stenosis. There is mild central canal stenosis. IMPRESSION: 1. Severe cervical spondylosis. Reviewed, dictated and finalized at location A. BREAKER
--- NOTE | ~2023-12-31 | CT_ITS ---
EXAMINATION: CT thoracic lumbar wo con DATE: 12/31/2023 13:34 INDICATION: Closed fracture of T12 thoracic vertebra. TECHNIQUE: Computed tomography (CT) of the thoracic and lumbar spine was performed without intravenou s contrast. Automated exposure control and iterative reconstruction technique were employed. The dose -length product was 814.19 mGy-cm. COMPARISON: None FINDINGS: CT THORACIC SPINE: Calcified right hilar and mediastinal lymph nodes are consistent with old granulom atous disease. There is 9 degrees levoscoliosis of thoracolumbar spine. There is mild chronic anterio r wedging of T8-T12 vertebral bodies. There is multilevel mildly decreased disc height. There is mode rately decreased disc height at T5-T6 and T6-T7. There is multilevel facet joint osteoarthritis, fabiano re at many levels in the upper thoracic spine. There is mild neural foraminal stenosis at many levels on either side. There is mild central canal stenosis at T4-T5, T6-T7, T7-T8, and T11-T12. CT LUMBAR SPINE: There is 8 degrees dextrocurvature of lumbar spine. There is mild chronic anterior w edging of L1 and L2 vertebral bodies. There is 3 mm retrolisthesis of L2 on L3. There is mildly decre ased disc height at L1-L2, severely decreased disc height at L2-L3, and mildly decreased disc height at L4-L5 and L5-S1. The following disc levels are specifically discussed: L1-L2: The disc is bulging. There is mild bilateral facet joint osteoarthritis. There is mild bilater al neural foraminal stenosis. There is mild central canal stenosis. L2-L3: The disc is bulging. There is mild bilateral facet joint osteoarthritis. There is mild bilater al neural foraminal stenosis. There is mild central canal stenosis. L3-L4: The disc is bulging. There is severe right and moderate left facet joint osteoarthritis. There is mild bilateral neural foraminal stenosis. There is no central canal stenosis. L4-L5: The disc is bulging. There is severe bilateral facet joint osteoarthritis. There is mild bilat eral neural foraminal stenosis. There is mild central canal stenosis. L5-S1: The disc is bulging. There is severe bilateral facet joint osteoarthritis. There is mild bilat eral neural foraminal stenosis. There is mild central canal stenosis. IMPRESSION: 1. No acute fracture. 2. Moderate thoracic spondylosis and severe lumbar spondylosis. Reviewed, dictated and finalized at location A. T THROWER
== END 2023-12-31 13:09 | disposition home or self-care (01) ==
LOC: ANHIMG 13:09
PROVIDERS: PCP Nurse Practitioner Family; Visit Provider Nurse Practitioner Family
DX: S22.089A Unspecified fracture of T11-T12 vertebra, initial encounter for closed fracture (principal); X58.XXXA Exposure to other specified factors, initial encounter; M47.894 Other spondylosis, thoracic region; M47.896 Other spondylosis, lumbar region
CPT/HCPCS: 72125; 72128; 72131

== ENCOUNTER 2024-01-13 08:13 | Outpatient (CLI) | payer MEDICARE, OTHER, SELFPAY ==
--- NOTE | ~2024-01-13 | CT_ITS ---
EXAMINATION: CT cervical spine wo con DATE: 01/13/2024 08:41 INDICATION: Fall. Closed fracture of 12th thoracic vertebra. TECHNIQUE: Computed tomography (CT) of the cervical spine was performed without intravenous contrast. Automated exposure control and iterative reconstruction technique were employed. The dose-length pro duct was 224.19 mGy-cm. COMPARISON: CT cervical spine 12/31/2023 FINDINGS: There is kyphosis of cervical spine. There is 3 degrees levocurvature of cervical spine. Ve rtebral body heights are normal. There is mildly decreased disc height at C3-C4, moderately decreased disc height at C4-C5, and severely decreased disc height at C5-C6 and C6-C7. The following disc leve ls are specifically discussed: C2-C3: There is no uncovertebral joint osteoarthritis. There is moderate left facet joint osteoarthri tis. There is no neural foraminal stenosis. There is no central canal stenosis. C3-C4: There is moderate right and mild left uncovertebral joint osteoarthritis. There is severe left facet joint osteoarthritis. There is mild left neural foraminal stenosis. There is mild central erasto l stenosis. C4-C5: There is severe right and mild left uncovertebral joint osteoarthritis. There is severe bilate ral facet joint osteoarthritis. There is mild bilateral neural foraminal stenosis. There is mild cent ral canal stenosis. C5-C6: There is severe bilateral uncovertebral joint osteoarthritis. There is mild right and severe l eft facet joint osteoarthritis. There is mild bilateral neural foraminal stenosis. There is mild cent ral canal stenosis. C6-C7: There is severe bilateral uncovertebral joint osteoarthritis. There is mild bilateral facet courtney int osteoarthritis. There is mild bilateral neural foraminal stenosis. There is mild central canal st enosis. C7-T1: There is no uncovertebral joint osteoarthritis. There is severe bilateral facet joint osteoart hritis. There is no neural foraminal stenosis. There is mild central canal stenosis. ON: 1. Severe cervical spondylosis. Reviewed, dictated and finalized at location A. CAST DIRECTOR
--- NOTE | ~2024-01-13 | CT_ITS ---
EXAMINATION: CT thoracic lumbar wo con DATE: 01/13/2024 08:42 INDICATION: Closed fracture of 12th thoracic vertebra. TECHNIQUE: Computed tomography (CT) of the thoracic and lumbar spine was performed without intravenou s contrast. Automated exposure control and iterative reconstruction technique were employed. The dose -length product was 768.64 mGy-cm. COMPARISON: CT thoracic and lumbar spine 12/31/2023 FINDINGS: Calcified right hilar and mediastinal lymph nodes are consistent with old granulomatous disease. There is 9 degrees levoscoliosis of thoracolumbar spine. There is mild chronic anterior wedging of T8-T12 vertebral bodies. There is multilevel mildly decreased disc height. There is moderately decreased disc height at T5-T6 and T6-T7. There is multilevel facet joint osteoarthrit is, severe at many levels in the upper thoracic spine. There is mild neural foraminal stenosis at man y levels on either side. There is mild central canal stenosis at T4-T5, T6-T7, T7-T8, and T11-T12. CT LUMBAR SPINE: There is 8 degrees dextrocurvature of lumbar spine. There is mild chronic anterior w edging of L1 and L2 vertebral bodies. There is 3 mm retrolisthesis of L2 on L3. There is mildly decre ased disc height at L1-L2, severely decreased disc height at L2-L3, and mildly decreased disc height at L4-L5 and L5-S1. The following disc levels are specifically discussed: L1-L2: The disc is bulging. There is mild bilateral facet joint osteoarthritis. There is mild bilateral neural foraminal stenosis. There is mild central canal stenosis. L2-L3: The disc is bulging. There is mild bilateral facet joint osteoarthritis. There is mild bilateral neural foraminal stenosis. There is mild central canal stenosis. L3-L4: The disc is bulging. There is severe right and moderate left facet joint osteoarthritis. There is mild bilateral neural foraminal stenosis. There is no central canal stenosis. L4-L5: The disc is bulging. There is severe bilateral facet joint osteoarthritis. There is mild bilateral neural foraminal stenosis. There is mild central canal stenosis. L5-S1: The disc is bulging. There is severe bilateral facet joint osteoarthritis. There is mild bilat eral neural foraminal stenosis. There is mild central canal stenosis. IMPRESSION: 1. No acute fracture. 2. Moderate thoracic spondylosis and severe lumbar spondylosis. Reviewed, dictated and finalized at location A. CHECKER
== END 2024-01-13 08:14 | disposition home or self-care (01) ==
PROVIDERS: PCP Nurse Practitioner Family; Visit Provider Nurse Practitioner Family
DX: S22.089A Unspecified fracture of T11-T12 vertebra, initial encounter for closed fracture (principal); M43.02 Spondylolysis, cervical region; M43.04 Spondylolysis, thoracic region; X58.XXXA Exposure to other specified factors, initial encounter
CPT/HCPCS: 72125; 72128; 72131

== ENCOUNTER 2024-02-06 13:12 | Emergency (ER) | payer MEDICARE, OTHER, SELFPAY ==
[2024-02-06 13:23] VITALS: BP 149/71; PULSE 82; RESP 16; TEMP 37.1; O2SAT 98
--- NOTE | 2024-02-06 13:34 | ED.FEMALEGU ---
HPI - Female Genitourinary General Chief complaint: Urogenital-Female Stated complaint: vaginal Cyst Time Seen by Provider: 02/06/24 13:30 Source: patient Mode of arrival: ambulatory Limitations: no limitations History of Present Illness HPI Narrative: Maya is a 73-year-old female patient presenting to the clinic today with complaints of a possible vaginal cyst. She reports that this has been going on for 1 week. Reports a raised swollen area in the right groin/labial area. States she gets these from time to time in her OBGYN told her to leave them alone. Thinks that this may be infected. Denies any fever, chills, or body aches. Related Data Home Medications ?Medication ?Instructions ?Recorded ?Confirmed ?Last Taken ?Type glucosamine sulf dipot 1 cap PO DAILY 02/26/20 02/06/24 02/26/20 09:00 History chlr,msm,chond 550 mg-C 30 mg-denisa 1 mg capsule (Glucosamine Chondroitin) folic acid 1 mg tablet 1 mg PO DAILY 11/29/21 02/06/24 Unknown History linaclotide 72 mcg capsule 72 mcg PO DAILY 11/29/21 02/06/24 Unknown History (Linzess) trazodone 50 mg tablet 50 mg PO DAILY 05/20/22 08/28/23 Unknown History triamterene 37.5 1 tablet PO DAILY 05/20/22 02/06/24 Unknown History mg-hydrochlorothiazide 25 mg tablet alprazolam 0.25 mg tablet 0.25 mg PO BID 06/08/22 02/06/24 Unknown History fluoxetine 40 mg capsule 40 mg PO DAILY 02/20/23 02/06/24 Unknown History linaclotide 145 mcg capsule 145 mcg PO .QD 02/06/24 02/06/24 Unknown History (Linzess) Allergies Allergy/AdvReac Type Severity Reaction Status Date / Time Penicillins Allergy Severe swelling Verified 02/06/24 13:24 eyes oxycodone AdvReac Intermediate n/v, Verified 02/06/24 13:24 dizziness pregabalin (From Lyrica) AdvReac Intermediate Dizziness Verified 02/06/24 13:24 tramadol AdvReac Intermediate n/v, Verified 02/06/24 13:24 dizziness Review of Systems Review of Systems: Pertinent positives per HPI. Patient denies any fever, chills, rash, headache, visual changes, dizziness, cough, runny nose, sore throat, shortness of breath, chest pain, palpitations, nausea, vomiting, diarrhea, constipation, abdominal pain, or any urinary issues. [facility] Past Medical History Medical History Hypertension Dyslipidemia Gastroesophageal reflux disease Degenerative disc disease Diverticulosis Anxiety Depression Arthritis Generalized; primarily in knees and hips. Endometriosis Rectal polyp Seasonal allergies Meniere's disease Surgical History Surgical History History of total abdominal hysterectomy and bilateral salpingo-oophorectomy History of excision of pilonidal cyst History of cholecystectomy History of right hip replacement History of 3 sections Family History Family History Mother Hypertension Cerebrovascular accident Hyperlipidemia Sibling Diabetes mellitus Social History Social History Social History: Surrogate medical decision maker: Toribio Kamara, spouse. Code status: Full code. Smoking status: Never smoker Alcohol intake: never Substance use: never Substance use type: does not use Do You Feel Safe in your Home?: Yes Lack of Transportation: No Lack of Food: Never True Current Housing: I Have Housing Concerned About Future Housing: No Difficulty Paying Gas/Electric Bills: No Difficulty Paying for Meds: No Currently Unemployed: No Education: Associate Degree Difficulty w/ Childcare or Family Care: No Additional living arrangements comments: . Lives with spouse in [place]. They have 4 children. Additional occupation/education comments: Retired from the [employer]. Spiritual care concerns: No Comments At the time of my signature, I reviewed and agree with the nursing past medical, surgical, social, and family history. There is no relevant family history pertinent to the patient complaint. Exam Narrative: General: Well-developed, well nourished, in no apparent distress Head: Normocephalic, atraumatic. Cardio: Regular rate and rhythm, s1 and s2 normal, no murmur appreciated. Resp: Clear to auscultation bilaterally, no rhonchi, rales, wheezing or rubs. Abdomen: Soft, pliable, bowel sounds present in all quadrants, non-tender to palpation, no CVAT tenderness. :External pelvic exam performed with (Nicolle ULRICH) at bedside. Verbal consent obtained from patient. Normal external female genitalia examined- 2cm x 2cm abscess to the right lower labia majora with ttp and mild fluctuance. Course Course Emergency Course: Portions of this record may have been created with voice recognition software. Level of Care: Express Care Visit Vital Signs Vital signs: Vital Signs Temperature 37.1 C 02/06/24 13:23 Pulse Rate 82 02/06/24 13:23 Respiratory Rate 16 02/06/24 13:23 Blood Pressure 149/71 H 02/06/24 13:23 Pulse Oximetry 98 02/06/24 13:23 Oxygen Delivery Room Air 02/06/24 13:23 Temperature 37.1 C 02/06/24 13:23 Pulse Rate 82 02/06/24 13:23 Respiratory Rate 16 02/06/24 13:23 Blood Pressure 149/71 H 02/06/24 13:23 Pulse Oximetry 98 02/06/24 13:23 Oxygen Delivery Room Air 02/06/24 13:23 Vital signs reviewed Procedures Abscess I/D Right labia majora: Date of Incision: 02/06/24 Side (if applicable): right Local Anesthetic: lidocaine 1% and with epi Amount of anesthesia used (mL): 1 Technique: incised with #11 blade Amount of fluid expressed (mL): 2 Irrigation: Yes Packing used?: none I&D Results: Pus and Blood Complications: other (None) Abcess I&D Additional Comments: Verbal consent obtained for incision and drainage. Risk and benefits explained and patient voiced understanding. Area was cleansed with betadine. Area was prepped and draped using sterile technique. 27 gauge needle was then used to instill (1) ml of lidocaine with epi into the wound edges. Patient tolerated well and anesthesia was appropriate. An 11 blade scalpel was then used to make a 0.5cm incision over the abscess. White bloody exudate expressed from cavity. Wound culture obtained and sent to lab. Patient tolerated procedure well. MDM - Female Genitourinary MDM Narrative Medical decision making narrative: At the time of visit patient is resting comfortably on the exam table. Patient appears to be nontoxic. Procedures: Incision and drainage of the right majora abscess was performed. Wound culture was obtained and sent to the lab Plan: Patient has a abscess to the right labia majora. Incision and drainage was performed. Wound culture was sent to the lab. Will place patient on Bactrim and metronidazole. Supportive measures were discussed with the patient and they voiced understanding discharge instructions and agrees to treatment plan. Return precautions reviewed Differential Diagnosis Differential diagnosis: Likely other (Bartholin gland cyst, abscess) Discharge Plan Discharge Clinical Impression: Abscess of labia majora Patient Disposition: Home, Self-Care Condition: Stable Instructions: Antibiotic Form, Abscess (ED), Abscess Incision and Drainage (DC) Additional Instructions: Incision and drainage was performed in the clinic today Wash daily with soap and water Wound culture was sent to the lab Take Bactrim and metronidazole as prescribed May complete sits past 3-4 times per day and warm water and Epson salt May take Tylenol/Motrin as needed for pain Follow-up with your OBGYN or PCP in 2-3 days for wound check Patient Language: [place] Citizen Prescriptions: New sulfamethoxazole-trimethoprim [Bactrim DS] 800-160 mg tablet 1 tablet PO Q12H 7 Days Qty: 14 0RF metronidazole 500 mg tablet 500 mg PO Q8H 7 Days Qty: 21 0RF No Action folic acid 1 mg tablet 1 mg PO DAILY Linzess 72 mcg capsule 72 mcg PO DAILY trazodone 50 mg tablet 50 mg PO DAILY triamterene-hydrochlorothiazid 37.5-25 mg tablet 1 tablet PO DAILY alprazolam 0.25 mg tablet 0.25 mg PO BID Linzess 145 mcg capsule 145 mcg PO .QD fluoxetine 40 mg capsule 40 mg PO DAILY aspirin 81 mg Tablet,Delayed Release (Dr/Ec) 81 mg PO QAM Qty: 90 3RF Glucosamine Chondroitin 550-30-1 mg Capsule 1 cap PO DAILY Follow-up/Referrals: Audi,MARTA Dejesus [Primary Care Provider] - Time of Disposition: 14:13 Quality NIHSS Nursing Documentation ED NIHSS nursing documentation: reviewed/agree
== END 2024-02-06 14:10 | disposition home or self-care (01) ==
PROVIDERS: Emergency Provider Nurse Practitioner Family; PCP Nurse Practitioner Family
DX: N76.4 Abscess of vulva (principal)
CPT/HCPCS: 56405; 87070; 87075; 87205; 99213; G0463

== ENCOUNTER 2024-03-27 10:04 | Emergency (ER) | payer MEDICARE, OTHER, SELFPAY ==
[2024-03-27 10:33] VITALS: BP 153/63; PULSE 81; RESP 16; TEMP 37.2; O2SAT 99
--- NOTE | 2024-03-27 11:32 | ED_ITS ---
HPI - Female Genitourinary General Chief complaint: Urogenital-Female Stated complaint: urinary issue,rash under breasts Time Seen by Provider: 03/27/24 11:35 Source: patient, RN notes reviewed and old records reviewed Mode of arrival: ambulatory Limitations: no limitations History of Present Illness HPI Narrative: Patient presents with complaints urinary frequency and burning that has been present for 4-5 days. She is also complaining of an itchy rash under the bilateral breasts that has been present for about 1 month. She denies any back pain. She denies any abdominal pain. Denies any nausea or vomiting. She has been using an unknown cream under her breasts, and taking azo for her UTI symptoms. She is not having any fever, chills, sweats. She voices no other concerns or complaints today Related Data Home Medications ?Medication ?Instructions ?Recorded ?Confirmed ?Last Taken ?Type glucosamine sulf dipot 1 cap PO DAILY 02/26/20 02/06/24 02/26/20 09:00 History chlr,msm,chond 550 mg-C 30 mg-denisa 1 mg capsule (Glucosamine Chondroitin) folic acid 1 mg tablet 1 mg PO DAILY 11/29/21 02/06/24 Unknown History linaclotide 72 mcg capsule 72 mcg PO DAILY 11/29/21 02/06/24 Unknown History (Linzess) trazodone 50 mg tablet 50 mg PO DAILY 05/20/22 08/28/23 Unknown History triamterene 37.5 1 tablet PO DAILY 05/20/22 02/06/24 Unknown History mg-hydrochlorothiazide 25 mg tablet alprazolam 0.25 mg tablet 0.25 mg PO BID 06/08/22 02/06/24 Unknown History fluoxetine 40 mg capsule 40 mg PO DAILY 02/20/23 02/06/24 Unknown History linaclotide 145 mcg capsule 145 mcg PO .QD 02/06/24 02/06/24 Unknown History (Linzess) Allergies Allergy/AdvReac Type Severity Reaction Status Date / Time Penicillins Allergy Severe swelling Verified 03/27/24 10:43 eyes oxycodone AdvReac Intermediate n/v, Verified 03/27/24 10:43 dizziness pregabalin (From Lyrica) AdvReac Intermediate Dizziness Verified 03/27/24 10:43 tramadol AdvReac Intermediate n/v, Verified 03/27/24 10:43 dizziness Review of Systems 2 Review of Systems: All systems reviewed & are unremarkable except as noted in HPI and below Constitutional: Constitutional: Reports no additional constitutional complaints ENT: Reports system reviewed and no additional complaints, except as documented Cardiovascular: Cardiovascular: Reports no additional cardiovascular complaints Respiratory: Respiratory: Reports no additional respiratory complaints Gastrointestinal: Gastrointestinal: Reports no additional gastrointestinal complaints Genitourinary: Genitourinary: Reports dysuria and Reports urinary urgency Integumentary/Breasts: Skin/Breast: Reports pruritus PMFSH Past Medical History Medical History Hypertension Dyslipidemia Gastroesophageal reflux disease Degenerative disc disease Diverticulosis Anxiety Depression Arthritis Generalized; primarily in knees and hips. Endometriosis Rectal polyp Seasonal allergies Meniere's disease Surgical History Surgical History History of total abdominal hysterectomy and bilateral salpingo-oophorectomy History of excision of pilonidal cyst History of cholecystectomy History of right hip replacement History of 3 sections Family History Family History Mother Hypertension Cerebrovascular accident Hyperlipidemia Sibling Diabetes mellitus Social History Social History Social History: Surrogate medical decision maker: Toribio Kamara, spouse. Code status: Full code. Smoking status: Never smoker Alcohol intake: never Substance use: never Substance use type: does not use Do You Feel Safe in your Home?: Yes Lack of Transportation: No Lack of Food: Never True Current Housing: I Have Housing Concerned About Future Housing: No Difficulty Paying Gas/Electric Bills: No Difficulty Paying for Meds: No Currently Unemployed: No Education: Associate Degree Difficulty w/ Childcare or Family Care: No Additional living arrangements comments: . Lives with spouse in [place]. They have 4 children. Additional occupation/education comments: Retired from the [employer]. Spiritual care concerns: No Comments At the time of my signature, I reviewed and agree with the nursing past medical, surgical, social, and family history. There is no relevant family history pertinent to the patient complaint. Exam 2 Const: General: cooperative, no acute distress, alert and awake O rientation/consciousness: oriented to person, oriented to place and oriented to time HENMT: Head: normal to inspection Resp: Effort & Inspection: normal respiratory effort and able to speak in complete sentences Auscultation: clear to auscultation bilaterally, no crackles, no rales, no rhonchi and no wheezes Cardio: Palpation: normal PMI Rate: regular rate Rhythm: regular rhythm Heart sounds: S1 normal heart sound present and S2 normal heart sound present : General: Yes bladder normal to palpation and Yes no CVA tenderness Skin: Full body images: 1. Flat moist red rash under bilateral breasts, consistent with yeast Neuro: General: oriented to person, oriented to place and oriented to time Cranial nerves: Yes CN's II-XII intact bilaterally Psych: Appearance: grossly normal Thought process: Normal thought process present Insight: Good insight present (Psych) Judgement: Good judgement present (Psych) Course Course Level of Care: Express Care Visit Vital Signs Vital signs: Vital Signs Temperature 99 F 03/27/24 10:33 Pulse Rate 81 03/27/24 10:33 Respiratory Rate 16 03/27/24 10:33 Blood Pressure 153/63 H 03/27/24 10:33 Pulse Oximetry 99 03/27/24 10:33 Oxygen Delivery Room Air 03/27/24 10:33 Temperature 99 F 03/27/24 10:33 Pulse Rate 81 03/27/24 10:33 Respiratory Rate 16 03/27/24 10:33 Blood Pressure 153/63 H 03/27/24 10:33 Pulse Oximetry 99 03/27/24 10:33 Oxygen Delivery Room Air 03/27/24 10:33 Reviewed MDM - Female Genitourinary MDM Narrative Medical decision making narrative: Reassuring physical exam. UA consistent with UTI, yeast rash under breasts. Medications prescribed. Nontoxic appearing, stable for discharge home. Discharge instructions reviewed with patient, as well as provided in writing per nursing staff. The instructions also include specific and strict return/GO TO THE ER as well as f/u information. All questions have been answered, and the patient deny any further questions with discharge and discharge plan. Some parts of this dictation were generated by voice recognition software and may contain typographical and/or grammatical inaccuracies. Differential Diagnosis Differential diagnosis: Likely urinary tract infection and other (Cystitis) Medical Records Attestation: I reviewed the patient's medical records. Lab Data Attestation: I reviewed the patient's lab results. Discharge Plan Discharge Clinical Impression: Acute UTI, Yeast dermatitis Patient Disposition: Home, Self-Care Condition: Stable Instructions: Antibiotic Form, Urinary Tract Infection in Women (ED), Skin Yeast Infection (ED) Additional Instructions: Take medications as prescribed. Follow with primary care provider. Emergency department for new or worse symptoms Patient Language: Setswana Prescriptions: New nitrofurantoin monohyd/m-cryst [Macrobid] 100 mg capsule 100 mg PO Q12H 5 Days Qty: 10 0RF Rx Instructions: must administer with a meal/food nystatin-triamcinolone 100,000-0.1 unit/g-% cream 1 applic topical BID 14 Days Qty: 60 0RF No Action folic acid 1 mg tablet 1 mg PO DAILY Linzess 72 mcg capsule 72 mcg PO DAILY trazodone 50 mg tablet 50 mg PO DAILY triamterene-hydrochlorothiazid 37.5-25 mg tablet 1 tablet PO DAILY alprazolam 0.25 mg tablet 0.25 mg PO BID Linzess 145 mcg capsule 145 mcg PO .QD sulfamethoxazole-trimethoprim [Bactrim DS] 800-160 mg tablet 1 tablet PO Q12H 7 Days Qty: 14 0RF metronidazole 500 mg tablet 500 mg PO Q8H 7 Days Qty: 21 0RF chlorhexidine gluconate [Hibiclens] 4 % liquid 1 applic topical ONCE 7 Days Qty: 118 0RF fluoxetine 40 mg capsule 40 mg PO DAILY aspirin 81 mg Tablet,Delayed Release (Dr/Ec) 81 mg PO QAM Qty: 90 3RF Glucosamine Chondroitin 550-30-1 mg Capsule 1 cap PO DAILY Follow-up/Referrals: Audi,MARTA Dejesus [Primary Care Provider] - 2 Weeks Time of Disposition: 11:41
[2024-03-27 11:51] LABS: EDUAAPPEAR Clear; EDUABILI Negative (Negative); EDUABLOOD Trace (Negative); EDUACOLOR1 Orange; EDUAGLUCOSE Trace (Negative); EDUAKETONE Negative (Negative); EDUALEUKO Trace (Negative); EDUANITRATE Positive (Negative); EDUAPROTEIN Negative (Negative); EDUASPGRAVITY 1.015
== END 2024-03-27 11:48 | disposition home or self-care (01) ==
PROVIDERS: Emergency Provider Nurse Practitioner Family; PCP Nurse Practitioner Family
DX: N39.0 Urinary tract infection, site not specified (principal); B37.2 Candidiasis of skin and nail; I10 Essential (primary) hypertension; E78.5 Hyperlipidemia, unspecified; K21.9 Gastro-esophageal reflux disease without esophagitis; M17.0 Bilateral primary osteoarthritis of knee; M16.0 Bilateral primary osteoarthritis of hip; N80.9 Endometriosis, unspecified; Z96.641 Presence of right artificial hip joint
CPT/HCPCS: 81003; 87086; 87186; 99213; G0463

== ENCOUNTER 2024-05-03 10:19 | Outpatient (CLI) | payer MEDICARE, OTHER, SELFPAY ==
--- NOTE | ~2024-05-03 | XR_ITS ---
XR hand RT 2V Ordering provider: Tashia Kirk, YAMILA History: . Pain of R hand . Comparison: October 05, 2023 FINDINGS: BONES: No acute fracture or dislocation. Osteopenia of the bones. JOINT SPACES: Narrowing of the proximal and distal interphalangeal joints. SOFT TISSUES: Atherosclerotic changes. IMPRESSION: No acute osseous abnormality right hand. Polyarticular osteoarthritic changes. Reviewed, dictated and finalized at location A.
== END 2024-05-03 10:20 | disposition home or self-care (01) ==
LOC: MICIMG 10:21
PROVIDERS: PCP Nurse Practitioner Family; Visit Provider Physician Assistant
DX: M79.641 Pain in right hand (principal)
CPT/HCPCS: 73120

== ENCOUNTER 2024-05-25 10:05 | Emergency (ER) | payer MEDICARE, OTHER, SELFPAY ==
--- NOTE | ~2024-05-25 | US_ITS ---
EXAMINATION: US venous doppler [facility] DATE: 05/25/2024 13:12 INDICATION: Left leg swelling TECHNIQUE: Grayscale ultrasound images without and with compression and Doppler ultrasound images of the left lower extremity veins were obtained. COMPARISON: None. FINDINGS: Noncompressibility and absence of flow is identified within the left peroneal vein. The visualized portions of left common femoral vein, profunda (deep) femoral vein, femoral vein, popl iteal vein, posterior tibial veins, and greater saphenous vein outflow are patent. IMPRESSION: Noncompressibility and absence of flow within the left peroneal vein, as detailed above. Reviewed, dictated and finalized at location A. IMPRESSION: Noncompressibility and absence of flow within the left peroneal vein, as detail ed above.
--- NOTE | ~2024-05-25 | XR_ITS ---
Clinical Indication: Chest pressure AP and lateral views of the chest: Comparison: 02/24/2023 Findings: The lungs are clear, without evidence of focal consolidation or pleural effusion. Cardiome diastinal silhouette is within normal limits. Bones and soft tissues are unremarkable. Impression: Clear lungs. Reviewed, dictated and finalized at location . Impression: Clear lungs.
--- NOTE | 2024-05-25 10:07 | ECG_ITS ---
Test Date: 2024-05-25 10:13:54 Measurements Intervals [place] Rate: 71 P: 33 GA: 161 QRS: 10 QRSD: 93 T: 13 QT: 410 QTc: 447 Interpretive Statements SINUS RHYTHM CONSIDER INFERIOR INFARCT, AGE INDETERMINATE ABNORMAL ECG No previous ECG available for comparison Electronically Signed On 05-25-2024 10:58:52 CDT by Rodrigue Singh D.O.
[2024-05-25 10:10] VITALS: BP 150/63; PULSE 72; RESP 12; TEMP 36.1; O2SAT 100
[2024-05-25 10:40] LABS: Basophils Percent Auto 0.2 % (0.2-1.2); Eosinophils Percent Auto 0.1 % (0-4.4); Hematocrit 39.9 % (37.0-47.0); Hemoglobin 13.6 g/dL (12.0-15.0); Immature Granulocyte Absolute 0.14 K/mm3 (0.00-0.031); Immature Granulocyte Percent A 1.1 % (0-0.5); Lymphocytes Absolute Auto 2.38 K/mm3 (0.9-3.2); Lymphocytes Percent Auto 18.6 % (18.3-44.2); Mean Corpuscular HGB Conc 34.1 g/dl (32-36); Mean Corpuscular Hemoglobin 31.4 pg (26-34); Mean Corpuscular Volume 92.1 fl (80-100); Mean Platelet Volume 9.3 fl (7.4-10.4); Monocytes Absolute Auto 1.2 K/mm3 (0.1-0.6); Monocytes Percent Auto 9.2 % (2.6-8.5); Neutrophils Absolute Auto 9.1 K/mm3 (1.3-6.7); Neutrophils Percent Auto 70.8 % (45.5-73.1); Platelet Count Result 410 k/mm3 (150-375); Red Blood Count 4.33 M/mm3 (4.2-5.4); Red Cell Distribution Width 13.3 % (11.5-14.5); White Blood Count 12.8 K/mm3 (4.5-10.0)
--- OUTSIDE RECORDS SUMMARY | 2024-05-25 10:47 | XMS_ITS | Referral Summary ---
Author Organization [facility] Address [address] [place] [address] Care Team Providers Care Emergency Department Name Role Phone Buzz Blankenship MD Unavailable [phone] Anjelica Huntley NP Primary Care Provider [phone] Encounters Date Type Department Care Team Description 05/22/2024 1:00 PM CDT Ancillary Procedure [facility] Orthopaedic Surgery [address] 1st Floor [address] [place] [address] Arrived 05/22/2024 1:00 PM CDT Procedure visit [facility] Orthopaedic Surgery [address] 1st Floor [address] [place] [address] Mario Aj MD Primary osteoarthritis of both knees 05/19/2024 8:46 AM CDT - 05/19/2024 11:59 PM CDT Hospital Encounter [id number] [address] [place] [phone] Nilesh Dos Santos MD Primary osteoarthritis of left hip; Left hip pain Discharge Disposition: Discharge to home or self care 05/17/2024 Telephone Radiology - [address] [place] [address] Radha Fox RT 05/17/2024 Orders Only [facility] Orthopaedic Surgery [address] 2nd Floor [address] [place] [address] Nilesh Dos Santos MD Primary osteoarthritis of left hip (Primary Dx); Left hip pain 05/16/2024 Results Follow-Up [facility] Orthopaedic Surgery [address] 2nd Floor [address] [place] [address] Nilesh Dos Santos MD 05/16/2024 9:40 AM CDT - 05/16/2024 11:59 PM CDT Hospital Encounter [facility] [address] [place] [address] Left hip pain Discharge Disposition: Discharge to home or self care 05/16/2024 8:45 AM CDT Office Visit [facility] Orthopaedic Surgery [address] [facility] [address] 2nd Floor [address] [place] [address] Nilesh Dos Santos MD Left hip pain (Primary Dx); Primary osteoarthritis of left hip; Chronic sacroiliac joint pain; Lumbar facet joint pain; Lumbar spondylosis; Primary osteoarthritis involving multiple joints 05/12/2024 7:31 AM CDT - 05/12/2024 11:59 PM CDT Hospital Encounter [id number] [address] [place] [address] Nilesh Dos Santos MD Chronic sacroiliac joint pain Discharge Disposition: Discharge to home or self care 05/11/2024 Orders Only [address] [address] Buzz Blankenship MD 05/11/2024 12:55 PM CDT - 05/11/2024 11:59 PM CDT Hospital Encounter [address] [phone] Localized primary osteoarthritis of carpometacarpal (CMC) joint of right wrist Discharge Disposition: Discharge to home or self care 05/09/2024 Telephone Radiology - [address] [place] [address] Radha Fox RT 05/08/2024 Results Follow-Up [address] [phone] Tashia Kirk PA 05/08/2024 Orders Only [address] [address] Tashia Kirk PA 05/05/2024 10:00 AM CDT Office Visit [facility] Internal Medicine at [address] [place] [address] Anjelica Huntley NP Weight gain (Primary Dx); BMI 29.0-29.9,adult; Primary insomnia 05/03/2024 Orders Only [facility] [place] Health Information Management [address] [place] [address] Scanning, Provider 05/03/2024 9:15 AM CDT Office Visit [facility] [address] [place] [address] Tashia Kirk PA Polyarthralgia (Primary Dx); Fibromyalgia; Pain of right hand; Localized primary osteoarthritis of carpometacarpal (CMC) joint of right wrist 05/02/2024 Orders Only [facility] Orthopaedic Surgery [address] [place] [address] 2nd Floor [address] [place] [address] Nilesh Dos Santos MD Chronic sacroiliac joint pain (Primary Dx) 04/27/2024 Telephone [facility] Orthopaedic Surgery [address] [facility] [address] [place] [address] Francine Isaac LPN 04/26/2024 Telephone [facility] Orthopaedic Surgery [address] [facility] [facility] 1st Floor [address] [place] [address] Mario jA MD 04/25/2024 7:57 AM LIGHTHOUSE KEEPER - 04/25/2024 11:59 PM LIGHTHOUSE KEEPER Hospital Encounter [facility] [address] [place] [address] Gerald Woodard MD Lumbar spondylosis (Primary Dx); Lumbar facet arthropathy Discharge Disposition: Discharge to home or self care 04/19/2024 Telephone [facility] Orthopaedic Surgery [address] [place] [address] 2nd [address] [place] [address] Justine Peraza CMA 04/13/2024 Results Follow-Up [facility] Internal Medicine at [place] [address] [place] [address] Anjelica Huntley NP 04/10/2024 9:00 AM LIGHTHOUSE KEEPER Office Visit [facility] Internal Medicine at [place] [address] [place] [address] Anjelica Huntley NP Dysuria (Primary Dx); BMI 28.0-28.9,adult; Left sided sciatica; Moderate persistent asthma without complication 03/31/2024 Telephone [facility] Family Medicine [address] [place] [address] Anjelica Huntley NP 03/27/2024 Telephone [facility] Family Medicine [address] [place] [address] Anjelica Huntley NP 03/24/2024 Telephone [facility] Orthopaedic Surgery [address] [place] [address] 2nd [address] [place] [address] Nilesh Dos Santos MD 03/21/2024 Orders Only [facility] Orthopa[facility] Surgery [address] [place] [address] 2nd Floor [address] [place] [address] Nilesh Dos Santos MD Lumbar spondylosis; Lumbar facet arthropathy 03/10/2024 Telephone [facility] Orthopaedic Surgery [address] [place] [address] [address] [place] [address] Francine Isaac LPN 03/09/2024 Orders Only [facility] Orth[facility] Surgery [address] [facility] [facility] 1st Floor [address] [place] [address] Mario Aj MD Primary osteoarthritis of both knees (Primary Dx) 03/06/2024 Telephone [facility] Orthopa[facility] Surgery [address] 1st Floor [address] [place] [address] Mario Aj MD 03/02/2024 Orders Only [facility] Surgery [address] [facility] [address] [place] [address] Nilesh Dos Santos MD 02/28/2024 Telephone [facility] Orthopa[facility] Surgery [address] [place] [phone] Nilesh Dos Santos MD from Last 3 Months Allergies Active Allergy Reactions Criticality Noted Date Comments Bempedoic Acid Other (See comments) Low 11/29/2023 Muscle ache Hydrochlorothiazide Other (See comments) Low 2012 Hydrocodone Nausea & Vomiting,Dizziness,Headac he,Vomiting Low 05/26/2011 Pregabalin Other (See comments),Agitation Low 10/13/2021 Blurred vision Pain Medicine Vomiting Low 07/24/2019 Penicillins Swelling Medium 03/13/2015 Medications aspirin 81 mg enteric coated tablet Take 1 tablet (81 mg total) by mouth every morning 02/22/20 23 Active folic acid (FOLVITE) 1 mg tabletIndicatio ns:Takes dietary supplements TAKE 1 TABLET BY MOUTH EVERY DAY 90 tablet 1 08/04/19 24 Active traZODone (DESYREL) 100 mg tabletIndicatio ns:insomnia associated with depression Take 1 tablet (100 mg total) by mouth nightly 180 tablet 1 09/29/19 24 Active triamterene-hyd roCHLOROthiazid e 37.5-25 mg per tablet/capsuleI ndications:Meni ere's disease, unspecified laterality TAKE 1 TABLET DAILY 90 tablet 3 10/11/19 24 Active FLUoxetine (PROzac) 40 mg capsuleIndicati ons:Anxiety and depression Take 1 capsule (40 mg total) by mouth daily 90 capsule 3 10/21/19 24 2024 Active linaCLOtide (Linzess) 145 mcg capsuleIndicati ons:Irritable bowel syndrome with constipation Take 1 capsule (145 mcg total) by mouth daily 90 capsule 1 11/11/19 24 Active fluticasone propionate (FLONASE) 50 mcg/actuation nasal spray SPRAY 2 SPRAYS INTO EACH NOSTRIL EVERY DAY 48 mL 1 12/22/19 24 Active traMADoL (ULTRAM) 50 mg tablet Take 1 tablet (50 mg total) by mouth 2 (two) times a day for 14 days 28 tablet 01/05/20 24 Active ondansetron (ZOFRAN) 4 mg tablet Take 1 tablet (4 mg total) by mouth every 8 (eight) hours as needed for nausea or vomiting 20 tablet 1 01/05/20 24 Active HYDROcodone-joel taminophen (NORCO) 5-325 mg per tabletIndicatio ns:Pain Take 0.5-1 tablets by mouth 2 (two) times a day as needed for pain 20 tablet 01/11/20 24 Active Additional Information Patient not taking.Reported on 05/05/2024 naloxone (NARCAN) 4 mg/actuation spray,non-aeros ol Administer 1 spray into affected nostril(s) as needed for opioid reversal or respiratory depression Call 911. Administer a single spray in one nostril. Repeat every 3 minutes as needed if no or minimal response. 2 each 01/11/20 24 Active ALPRAZolam (XANAX) 0.25 mg tabletIndicatio ns:Anxiety Take 1 tablet (0.25 mg total) by mouth 2 (two) times a day as needed for anxiety 60 tablet 2 03/29/19 25 Active semaglutide (Wegovy) 0.25 mg/0.5 mL auto-injectorIn dications:Weigh t gain Inject 0.25 mg under the skin every 7 days 3 mL 1 05/06/19 25 Active amitriptyline (ELAVIL) 25 mg tabletIndicatio ns:Primary insomnia Take 1 tablet (25 mg total) by mouth nightly for 20 days 30 tablet 1 05/06/19 25 Active nystatin-triamc inolone cream APPLY 1 APPLICATION TOPICALLY TWICE A DAY X 14 DAYS 03/27/[address] (NexIUM) 40 mg capsule TAKE 1 CAPSULE DAILY BEFORE BREAKFAST 90 capsule 1 05/18/19 25 Active lidocaine viscous (lidocaine) 2 % solutionIndicat ions:Dyspepsia Mix 5ml with 5ml of Maalox and swallow for chest pain. Can use up to 3 times daily 100 mL 1 02/19/20 23 2024 Discontinued(T herapy completed) amitriptyline (ELAVIL) 25 mg tablet Take 1 tablet (25 mg total) by mouth nightly for 20 days 20 tablet 11/22/19 24 2024 Discontinued(R eorder) esomeprazole DR (NexIUM) 40 mg capsule TAKE 1 CAPSULE DAILY BEFORE BREAKFAST 90 capsule 1 12/13/19 24 2024 Discontinued budesonide-glyc opyr-formoterol (Breztri Aerosphere) 160-9-4.8 mcg/actuation inhalerIndicati ons:Moderate persistent asthma without complication Inhale 2 puffs 2 (two) times a day 1 each 1 04/10/19 25 2024 Discontinued(O ther) Hospital, Clinic, or Other Facility Administered Medication Ordered Dose Route Frequency Start Date End Date Status hylan g-f 20 (SYNVISC-ONE) 48 mg/6 mL injection 48 mgIndications:Oste oarthritis of the Knee 48 mg intra-artic One-Time Injection 05/22/2024 05/22/2024 Ended hylan g-f 20 (SYNVISC-ONE) 48 mg/6 mL injection 48 mgIndications:Oste oarthritis of the Knee 48 mg intra-artic One-Time Injection 05/22/2024 05/22/2024 Ended lidocaine (XYLOCAINE) 10 mg/mL (1 %) injection 3 mLIndications:Admi nistration of Local Anesthesia 3 mL One-Time Injection 05/22/2024 05/22/2024 Ended lidocaine (XYLOCAINE) 10 mg/mL (1 %) injection 3 mLIndications:Admi nistration of Local Anesthesia 3 mL One-Time Injection 05/22/2024 05/22/2024 Ended Active Problems Problem Noted Date Diagnosed Date Pain of right hand 05/03/2024 Assessment & Plan (05/08/2024 3:48 PM CDT): XR R hand 04/2024: 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 Assessment & Plan (05/03/2024 9:07 AM CDT): Pain in the right 1st CMC joint since falling. Pain with activity like gripping suggestive of DJD. Will get updated XR and order USG kenalog injection of the right 1st CMC joint. Left sided sciatica 04/10/2024 Moderate persistent asthma without complication 04/10/2024 Anxiety and depression 09/25/2023 Generalized pain 08/23/2023 BMI 28.0-28.9,adult 03/16/2023 Dysuria 03/16/2023 Coronary artery disease invo lving [place] coronary artery of [place] heart without angina pectoris 03/09/2023 History of non-ST elevation myocardial infarctio n (NSTEMI) 02/20/2023 Dyspepsia 11/20/2022 Assessment & Plan (11/20/2022 7:01 PM CDT): The patient has had a number of EGDs that have been effectively normal and her esophageal manometry showed more contraction waves consistent with esophageal visceral hypersensitivity. As her GERD symptoms have increased as her stress and joint pain has worsened, we suspect this is more a manifestation of functional dyspepsia. She can continue to avoid trigger foods but we would recommend that she try diaphragmatic breathing and GI cocktail made of 5 mL viscous lidocaine and 5 mL Maalox plus Yeast infection 05/27/2022 Rash 05/20/2022 Assessment & Plan (12/29/2022 11:49 AM LIGHTHOUSE KEEPER): Resolved with kenalog IM. Will defer restarting humira as it may have been induced by TNFi. Fhx of daughter with psoriasis but patient denies personal hx. Will monitor for any recurrence. She usually sees derm Dr. Rodríguez. Assessment & Plan (06/17/2022 11:06 AM CDT): Resolved with kenalog IM. Will defer restarting humira as it may have been induced by TNFi. Fhx of daughter with psoriasis but patient denies personal hx. Will monitor for any recurrence. She usually sees derm Dr. Rodríguez. Assessment & Plan (05/20/2022 2:51 PM CDT): x2 weeks. Scaly, itchy skin on face, ears, and scalp. No hx of psoriasis. fhx of daughter with psoriasis. Currently on humira which can exacerbate this so will stop humira. Due to burden of disease, will administer kenalog 100 mg IM injection, in office, today. Keep derm appt for 06/2022 in case rash does not resolve. Hair thinning 03/24/2022 Assessment & Plan (03/24/2022 10:44 AM LIGHTHOUSE KEEPER): Likely worsened by MTX which was stopped 01/2022. Recommend folic acid up to 3mg daily and biotin. Encouraged to discuss with her patrol driver as well. Primary insomnia 03/13/2022 Assessment & Plan (09/29/2023 9:19 AM CDT): This is a significant, separately identifiable problem that was evaluated and managed on the same day as the wellness exam Dyspnea on exertion 02/04/2022 Overview (02/04/2022): Patient O2 sat is 98%. She does complain of slight chest pressure and shortness of breath. 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 current use of therapeutic drug 2021 Overview (12/25/2021): TSPOT negative: 11/2021 Hepatitis panel negative: 11/2021 Assessment & Plan (10/19/2023 8:42 AM CDT): Hepatitis panel negative: 11/2021 TSPOT negative: 11/2021 Assessment & Plan (09/21/2023 11:22 AM CDT): Hepatitis panel negative: 11/2021 TSPOT negative: 11/2021 Assessment & Plan (01/25/2023 9:31 AM LIGHTHOUSE KEEPER): Hepatitis panel negative; 11/2021 TSPOT negative: 11/2021 Assessment & Plan (12/29/2022 11:51 AM LIGHTHOUSE KEEPER): Hepatitis panel negative; 11/2021 TSPOT negative: 11/2021 Assessment & Plan (11/17/2022 6:08 PM CDT): Hepatitis panel negative; 11/2021 TSPOT negative: 11/2021 Assessment & Plan (09/17/2022 8:45 AM CDT): Hepatitis panel negative; 11/2021 TSPOT negative: 11/2021 Assessment & Plan (08/28/2022 9:28 AM CDT): Hepatitis panel negative; 11/2021 TSPOT negative: 11/2021 Assessment & Plan (06/17/2022 11:02 AM CDT): Hepatitis panel negative; 11/2021 TSPOT negative: 11/2021 Assessment & Plan (05/20/2022 2:49 PM CDT): Hepatitis panel negative; 11/2021 TSPOT negative: 11/2021 Assessment & Plan (03/24/2022 10:42 AM LIGHTHOUSE KEEPER): Hepatitis panel negative; 11/2021 TSPOT negative: 11/2021 Assessment & Plan (01/20/2022 10:27 AM LIGHTHOUSE KEEPER): Hepatitis panel negative; 11/2021 TSPOT negative: 11/2021 Assessment & Plan (12/22/2021 12:57 PM CDT): Check Hepatitis screening panel. Check TSPOT today. Assessment & Plan (11/17/2021 5:38 PM CDT): Check Hepatitis screening panel next visit. Refused Streptococcus pneumoniae vaccination Hyperparathyroidism 08/18/2021 Assessment & Plan (08/20/2021 11:52 AM CDT): We reviewed the progress note from endocrinology. She was advised per Endocrinology orders to stop her calcium and vitamin-D supplementation. We discussed that this would be an anticipated course of action, and that if the calcium remains elevated that Dr. Long plans on further action. She was encouraged to follow-up with his office as planned. Assessment & Plan (08/18/2021 2:09 PM CDT): Chronic hypercalcemia, detected in 2020 Labs on 07/30/21: Calcium 10.6 PTH 85 GFR 57 Normal ionized calcium of 5.1 Bone density on 11/13/20 : osteopenia of the spine -1.8. hip -1.4 This could be mild primary hyperparathyroidism. Plan: Discontinue vitamin D Discontinue calcium supplements We will monitor calcium and kidney functions Levels will be repeated next visit with urine calcium Weakness of both lower extremities 07/30/2021 Assessment & Plan (07/30/2021 1:19 PM CDT): Advised xray ls spine, will notify pt of results as available Advised patient of cauda equina symptoms, reporting to the ER if she experiences these. She will continue with care per PM. Advised her to use her cane. Falling 07/30/2021 Assessment & Plan (07/30/2021 1:18 PM CDT): Advised xray ls spine, will notify pt of results as available Advised patient of cauda equina symptoms, reporting to the ER if she experiences these. She will continue with care per PM. Advised her to use her cane. PFO (patent foramen ovale) 06/04/2021 Assessment & Plan (06/04/2021 12:50 PM CDT): We reviewed recent echo. Problem list updated. Advised f/u with cardiology. Palpitations 03/21/2021 Polyarthralgia 02/17/2021 Overview (05/03/2024): 09/21/23: B12 1227, CMP nl, PLT 496, ESR 38, CRP 0.74mg/dL, TSH 2.62, FT 1.0, Vit D 39, RF <14, CCP <16, MVC <20, ferritin 27 Labs (04/14/21): Neg 14.3.3 eta, Ca 10.6, Plt 560, ESR 51, CRP 11.2 Labs 10/06/21: RF <14, CCP <16, 14.3.3 eta <0.2, ESR 39, CRP 6.1 AVISE (04/14/21): +APRIL 1:160 speckled XR b/l hands 09/2023: scattered arthritic changes typical of OA, most notable in the IP joint of the thumb and finger and 1st CMC joint. Moderate in the right 1st IP joint, 2nd/3rd DIP joints. US right hand/wrist (04/21/21): Small grade 1 power doppler in the 2nd PIP joint. Cortical irregularity without confirmed erosions in the 2nd MCP joint. No significant joint effusions or synovial thickening appreciated on US exam. An additional transverse view of the right knee reveals a small area of hyperechoic reflection and intrarticular aggregate which can be seen with chondrocalcinosis. US right hand/wrist (10/09/21): The volar 1st IP joint reveals spurring with a grade 1 effusion and grade 2 power doppler. The dorsal 1st IP joint reveals spurring with a grade 1 effusion and grade 1 power doppler. The dorsal 2nd DIP joint reveals a grade 1 power doppler. Grade 1 power doppler in the radial/scaphoid joint. Mild synovial thickening in the 4th MCP and 2nd PIP joints. US right hand/wrist (10/05/23):: Mild synovial thickening of the dorsal wrist with grade 2 power Doppler Grade 1 power Doppler of the radial scaphoid joint Grade 2 power Doppler of the 1st MCP joint Joint space narrowing and bone spur formation of the 1st IP joint with grade 1 volar power Doppler Mild synovial thickening of the 2nd PIPJ Mild spurring of the 1st CMC joint Findings are compared to previous exam dated 10/09/21 showing increased synovial thickening and power Doppler of the dorsal wrist with stability in the radial scaphoid joint. New power Doppler signal in the 1st MCPJ with continued narrowing and osteophyte formation of the 1st IP joint. Improved synovial thickening of the 4th MCPJ with stable mild thickening of the 2nd PIPJ. Assessment & Plan (05/03/2024 9:13 AM CDT): Prior diagnosis of PsA based on response to systemic steroids, Fhx daughter with psoriasis, and repeat US (2021) showing possible progression of inflammation. She has had s/e to several treatment options and pain is complicated by overlapping fibromyalgia. Repeat evaluation (2023) showed negative RA panel, normal ESR/CRP, OA in both hands on XR, and no significant change on US to suggest worsening inflammatory arthritis. She was on high dose steroids without any pain relief further suggesting her symptoms are not due to an inflammatory arthritis but more likely fibromyalgia at this time. She has failed lyrica, gabapentin, cymbalta, effexor, and flexeril in the past. PCP has her taking prozac for depression/anxiety. She is taking trazadone 75mg qhs for sleep. -No obvious signs/symptoms to suggest an inflammatory arthritis at this time. -Discussed there is no FDA indication of GLP-1 for inflammation and that I am unable to prescribe this. If she is wanting to consider this medication she will need to discuss with her PCP whether she qualifies for either a diagnosis of obesity/weight loss or diabetes. -Continue to follow with PCP for fibromyalgia. -Continue to follow with PM&R for chronic pain/DJD. -Current pain of thumb appears degenerative and will get updated XR and USG kenalog injection of the 1st CMC joint. -pt prefers to f/u in 3 months. Sooner if needed. Assessment & Plan (10/19/2023 10:44 AM CDT): Prior diagnosis of PsA based on response to systemic steroids, Fhx daughter with psoriasis, and repeat US (2021) showing possible progression of inflammation. She has had s/e to several treatment options and pain is complicated by overlapping fibromyalgia. Repeat evaluation since last visit shows negative RA panel, normal ESR/CRP, OA in both hands on XR, and no significant change on US to suggest worsening inflammatory arthritis. She was recently on high dose steroids without any pain relief further suggesting her symptoms are not due to an inflammatory arthritis but more likely fibromyalgia at this time. She has failed lyrica, gabapentin, cymbalta, effexor, and flexeril in the past. PCP is currently tapering off prozac and starting cymbalta but patient notes insomnia with cymbalta so remains on prozac. She is taking trazadone 75mg qhs for sleep. Continue to follow with PCP for fibromyalgia. Plan to monitor for symptoms to suggest active PsA. F/u in 6 months. Sooner if needed. Assessment & Plan (11/20/2022 7:05 PM CDT): The patient indicates that she responds the best Medrol Dosepaks and Naprosyn. Medrol Dosepaks are not a exterminator helper termite solution. As long as her kidney function is normal and she remains on a PPI to avoid NSAID related gastric injury, she could certainly retry Naprosyn. This generally just naproxen sodium and she can discuss this with her pain management doctor. If the Naprosyn causes constipation, she can increase her use of fiber and laxatives As the patient is pain tends to worsen when she is depressed and depression worsens when she is in pain, we still think she may benefit from the multi pronged approach particularly with pain psychology physical therapy at the pain management Center at [facility] Assessment & Plan (06/04/2021 12:51 PM CDT): She will continue working with rheumatology and neurosurgery. Advised caution on frequency of steroid injections, and advised her to communicate with surgeons prior to receiving them. Fibromyalgia 02/17/2021 Assessment & Plan (05/03/2024 8:25 AM CDT): Previously diagnosed by PCP. C/o diffuse generalized pain. S/e to gabapentin and lyrica so will defer restarting. Remains on fluoxetine per psych. Unfortunately, additional treatment options are limited. Continue to follow with PCP regarding treatment. Assessment & Plan (10/19/2023 10:43 AM CDT): Previously diagnosed by PCP. C/o diffuse generalized pain. S/e to gabapentin and lyrica so will defer restarting. Remains on fluoxetine per psych. Unfortunately, additional treatment options are limited. Continue to follow with PCP regarding treatment. Assessment & Plan (09/21/2023 11:23 AM CDT): Previously diagnosed by PCP. C/o diffuse generalized pain. S/e to gabapentin and lyrica so will defer restarting. Remains on fluoxetine per psych. Unfortunately, additional treatment options are limited. Assessment & Plan (01/25/2023 9:32 AM LIGHTHOUSE KEEPER): Previously diagnosed by PCP. C/o diffuse generalized pain. S/e to gabapentin and lyrica so will defer restarting. Recently restarted venlafaxine per PCP for anxiety. Remains on fluoxetine but was increased to 60mg daily per psych. Additional medication options are limited. Assessment & Plan (12/29/2022 11:50 AM LIGHTHOUSE KEEPER): Previously diagnosed by PCP. C/o diffuse generalized pain. S/e to gabapentin and lyrica so will defer restarting. Recently restarted venlafaxine per PCP for anxiety. Remains on fluoxetine but was increased to 60mg daily per psych. Assessment & Plan (11/17/2022 6:08 PM CDT): Previously diagnosed by PCP. C/o diffuse generalized pain. S/e to gabapentin and lyrica so will defer restarting. Previously on venlafaxine. Remains on fluoxetine but was increased to 60mg daily per psych. Assessment & Plan (09/17/2022 8:45 AM CDT): Previously diagnosed by PCP. C/o diffuse generalized pain. S/e to gabapentin and lyrica so will defer restarting. Previously on venlafaxine. Remains on fluoxetine but was increased to 60mg daily per psych. Assessment & Plan (08/28/2022 9:28 AM CDT): Previously diagnosed by PCP. C/o diffuse generalized pain. S/e to gabapentin and lyrica so will defer restarting. Previously on venlafaxine. Remains on fluoxetine but was increased to 60mg daily per psych. Assessment & Plan (06/17/2022 11:02 AM CDT): Previously diagnosed by PCP. C/o diffuse generalized pain. S/e to gabapentin and lyrica so will defer restarting. Previously on venlafaxine and fluoxetine per PCP however patient self-discontinued these recently. Assessment & Plan (05/20/2022 2:50 PM CDT): Previously diagnosed by PCP. C/o diffuse generalized pain. S/e to gabapentin and lyrica so will defer restarting. Currently on venlafaxine and fluoxetine per PCP. Assessment & Plan (03/24/2022 10:42 AM LIGHTHOUSE KEEPER): Previously diagnosed by PCP. C/o diffuse generalized pain. S/e to gabapentin and lyrica so will defer restarting. Currently on venlafaxine and fluoxetine per PCP. Assessment & Plan (01/20/2022 10:27 AM LIGHTHOUSE KEEPER): Previously diagnosed by PCP. C/o diffuse generalized pain. S/e to gabapentin and lyrica so will defer restarting. Currently on venlafaxine and fluoxetine per PCP. Assessment & Plan (12/22/2021 1:04 PM CDT): Previously diagnosed by PCP. C/o diffuse generalized pain. S/e to gabapentin and recently lyrica so will defer restarting. Currently on venlafaxine and fluoxetine per PCP. Assessment & Plan (11/17/2021 5:26 PM CDT): Previously diagnosed by PCP. C/o diffuse generalized pain. S/e to gabapentin and recently lyrica so will defer restarting. Currently on venlafaxine and fluoxetine per PCP. Assessment & Plan (10/06/2021 12:19 PM CDT): Previously diagnosed by PCP. C/o diffuse generalized pain. S/e to gabapentin. Currently on venlafaxine and fluoxetine per PCP. Will try Lyrica 75mg BID. Discussed potential side effects of the medication, including but not limited to somnolence, dizziness. Assessment & Plan (02/17/2021 8:28 PM LIGHTHOUSE KEEPER): Add gabapentin at hs. Discussed increasing to 100mg bid over the coming week pending symptom improvement. Tremor 01/27/2021 Assessment & Plan (01/27/2021 9:30 AM LIGHTHOUSE KEEPER): Advised ct of head, eeg, referral to neurology Advised labs today - will notify her of results as they are available Syncope 01/27/2021 Assessment & Plan (02/17/2021 8:26 PM LIGHTHOUSE KEEPER): Has appt pending for cv that she will keep She will continue to not drive Assessment & Plan (01/27/2021 9:30 AM LIGHTHOUSE KEEPER): Advised no driving, climbing, or swimming Advised ct of head, eeg, referral to neurology Advised labs today - will notify her of results as they are available Plantar fasciitis, bilateral 11/04/2020 Assessment & Plan (11/04/2020 2:16 PM CDT): Will continue with care per millwright supervisor Thrombophlebitis of superfic ial veins of right lower extremity 11/04/2020 Assessment & Plan (11/04/2020 2:17 PM CDT): Advised warm compresses, RENETTA kwong Advised resuming walking for exercise when plantar fasciitis is improved Osteoarthritis of knee 10/08/2020 Renal cyst 10/08/2020 Overview (11/04/2020): Left, 7mm. Assessment & Plan (11/04/2020 2:16 PM CDT): Will continue to monitor Assessment & Plan (10/08/2020 6:07 PM CDT): We reviewed abd imaging Will repeat US in 6mo to ensure stability Meniere's disease 10/08/2020 Assessment & Plan (12/30/2020 8:38 PM LIGHTHOUSE KEEPER): Decrease maxzide due to hyponatremia Repeat bmp in the next week Assessment & Plan (10/08/2020 6:08 PM CDT): Continue with care per ent We discussed as she has a current rx for valium that we cannot provide her with another at the current time. We discussed that if her ent discontinues writing it for her that pending review of [place] chief program officer we can further discuss a prescription. Paradoxical vocal fold motion disorder Assessment & Plan (09/12/2020 11:02 AM CDT): I have recommended laryngeal control therapy here at the [facility] in order to control the patient's symptoms. The patient's diagnosis was discussed in detail along with how therapy can improve it. Fatigue 08/29/2020 Assessment & Plan (08/20/2021 11:52 AM CDT): We discussed that this could be secondary to many of her chronic concerns. We discussed additionally that her depression could be contributing. Assessment & Plan (08/18/2021 2:12 PM CDT): Chronic - had work up with cardiology and hematology Had normal TSH in 2020 - this could be related to depression - continue medication per PCP Assessment & Plan (08/29/2020 12:32 PM CDT): Will evaluate further with labs, will notify her of results as available Discussed this could have many etiologies unfortunately. Weight gain 08/01/2020 Assessment & Plan (08/01/2020 10:10 AM CDT): Will restart hctz. Will repeat a bmp in 30d to monitor for hypokalemia. Vertigo 08/01/2020 Assessment & Plan (12/17/2020 11:08 AM CDT): She has already increased her maxide to 75-50mg 1 tab daily. Will give her rx reflecting this. Advised bmp in the next 30d to monitor her potassium. Advised her to monitor home bp and pulse and contact office if running <90/50. Assessment & Plan (11/04/2020 2:16 PM CDT): Continue with care per ent Assessment & Plan (08/01/2020 10:10 AM CDT): Will restart hctz. Will repeat a bmp in 30d to monitor for hypokalemia. Episode of recurrent major depressive disorder 0 07/24/2020 Assessment & Plan (09/29/2023 9:18 AM CDT): This is a significant, separately identifiable problem that was evaluated and managed on the same day as the wellness exam Assessment & Plan (10/13/2021 12:47 PM CDT): Continue medications the same at this time Assessment & Plan (06/04/2021 12:49 PM CDT): Continue with meds same at this time Assessment & Plan (02/17/2021 8:25 PM LIGHTHOUSE KEEPER): Stable, continue meds same at this time Assessment & Plan (12/30/2020 8:40 PM LIGHTHOUSE KEEPER): Decrease prozac to 30mg daily Assessment & Plan (11/04/2020 2:16 PM CDT): Continue with prozac Discussed grieving process Irritable bowel syndrome 06/13/2020 Assessment & Plan (11/20/2022 7:02 PM CDT): We would like the patient to stay on Linzess and if she restarts Naprosyn than this causes constipation, she can certainly add back MiraLax or fiber in addition to the Linzess to manage this Assessment & Plan (07/10/2022 6:56 PM CDT): Continue Linzess. The patient is encouraged to try the dicyclomine for cramping as this may be helpful. Assessment & Plan (10/13/2021 12:48 PM CDT): Continue with Dr. Guillaume, refill meds as needed. Assessment & Plan (12/30/2020 8:39 PM LIGHTHOUSE KEEPER): Continue with care per GI Due to concerns that the wellbutrin and prozac concomitantly is making her feel off, will decrease the prozac to 30mg daily. Assessment & Plan (11/04/2020 2:15 PM CDT): Continue with care per gi Assessment & Plan (06/13/2020 7:46 PM CDT): The patient has issues with anxiety, depression, and visceral hypersensitivity. While she experiences some benefit from Prozac and in the past Effexor, we would recommend that she connect with are the GI therapist as she has a tendency to dislike medicines or have side effects from them. Having better coping strategies would likely help. Reactive thrombocytosis 05/22/2020 Assessment & Plan (10/13/2021 12:48 PM CDT): Continue care per hematology Assessment & Plan (08/20/2021 11:54 AM CDT): We reviewed the consult note from hematology. we discussed per Dr. Monae's note that he intends to use hydroxyurea pending her repeat blood work. We discussed per his consult note and Dr. Palomares's testing that it does not appear that she has cancer at this time. She was advised to continue routine screening for health maintenance and prevention such as colonoscopy and mammogram. Assessment & Plan (07/30/2021 1:19 PM CDT): She has second opinion pending, will repeat cbc in the interim Assessment & Plan (06/04/2021 12:50 PM CDT): We reviewed recent labs. Will refer for second opinion hematology. Assessment & Plan (12/30/2020 8:40 PM LIGHTHOUSE KEEPER): Has appt pending with heme/onc that she will keep She was reminded as she previously had a prn valium not to take this on the day that she is using a prn ativan and norco. Assessment & Plan (11/04/2020 2:15 PM CDT): Continue with care per oncologist Gout, unspecified 05/10/2020 Assessment & Plan (05/10/2020 12:50 PM CDT): Will evaluate further with labs. Advised her not to adjust doses of medications on her own. She will discontinue indomethacin at this time. Will continue to follow-up with millwright supervisor as planned. Anxiety 04/18/2020 Assessment & Plan (07/10/2022 6:53 PM CDT): As the patient's pain causes depression and depression worsens pain, she may benefit from speaking to a pain psychologist like 1 at the pain center at [facility]. Assessment & Plan (10/13/2021 12:47 PM CDT): Discontinue with xanax. Will restart valium bid/prn anxiety or dizziness. Assessment & Plan (06/04/2021 12:49 PM CDT): Will add a prn xanax as she has discontinued valium. Assessment & Plan (02/17/2021 8:28 PM LIGHTHOUSE KEEPER): Resume prn valium, advised not taking more than 10mg daily. Advised potential for addictiveness with valium and additionally for sedation as a side effect. She was advised caution on driving after taking due to sedation potential. Assessment & Plan (04/18/2020 10:23 AM LIGHTHOUSE KEEPER): Continue medication same at this time Rib pain on left side 04/18/2020 Assessment & Plan (04/18/2020 10:23 AM LIGHTHOUSE KEEPER): We reviewed ct chest, abdominal us. She will continue to exercise 4x/week for 30min each session. Gastric polyp 04/18/2020 Assessment & Plan (04/18/2020 10:23 AM LIGHTHOUSE KEEPER): Continue with care per gi Lipoma of torso 04/18/2020 Assessment & Plan (04/18/2020 10:23 AM LIGHTHOUSE KEEPER): Will refer to gen surg to discuss further evaluation and treatment Abdominal pain 03/14/2020 Overview (03/14/2020): Added automatically from request for surgery [id number] Assessment & Plan (07/10/2022 6:50 PM CDT): The patient's CT scan and blood work from 2 weeks ago was unremarkable. There are no red flag findings over the years the patient has had a tendency to have stress manifest as abdominal pain. She also appears to have taken naproxen recently which is cause GI distress in the past. We would recommend that she avoid NSAIDs, follow a tolerated diet, and focus on managing her stress and anxiety. Assessment & Plan (08/20/2021 11:52 AM CDT): Advised CT abdomen and pelvis today as planned. Advised additionally blood work and urinalysis. She was given a paper copy of the order and advised to take this to [facility] today. Change in bowel habits 03/14/2020 Overview (03/14/2020): Added automatically from request for surgery [id number] Assessment & Plan (04/02/2023 7:35 PM LIGHTHOUSE KEEPER): The patient was recently treated with a number of antibiotics and Cosentyx. Even though Cosentyx was discontinued in January, there is an association with triggering a inflammatory bowel disease type condition. We would like to check stool studies including calprotectin to evaluate an infection or inflammatory cause of her symptoms. Hoarseness of voice 02/19/2020 Assessment & Plan (03/20/2020 11:27 AM LIGHTHOUSE KEEPER): resolved Assessment & Plan (02/19/2020 12:54 PM LIGHTHOUSE KEEPER): Will send for covid test today. Will notify her of results as available. Advised her in the interim to report to er if worsening. Will start on proventil hfa and change aciphex to dexilant. Positive depression screening 11/14/2019 Assessment & Plan (03/20/2020 11:26 AM LIGHTHOUSE KEEPER): Continue with prozac. Will add buspar bid, discussed increasing pending response. Breast cyst, right 11/14/2019 Assessment & Plan (04/18/2020 10:22 AM LIGHTHOUSE KEEPER): Due for repeat imaging in the next month, will provide order Assessment & Plan (11/14/2019 9:49 AM CDT): We reviewed notes CDI, and copy of this will be scanned into her chart. She was offered and advised a 2nd opinion with Dr. Thomason. She declines a 2nd opinion at this time. She will do monthly self-breast exams, and she will notify us if there is any change. Varicose veins of both lower extremities Assessment & Plan (11/14/2019 9:48 AM CDT): Follow up with cardiology as planned. Nausea 11/09/2019 Assessment & Plan (08/20/2021 11:53 AM CDT): She was advised to complete CT abdomen and pelvis and labs today Assessment & Plan (08/29/2020 12:32 PM CDT): Will give prn zofran. Advised caution as it may make her drowsy. Assessment & Plan (11/09/2019 7:29 PM CDT): Patient states that she had benefit from Zofran and we will refill this BMI 29.0-29.9,adult 10/16/2019 Assessment & Plan (02/17/2021 8:27 PM LIGHTHOUSE KEEPER): Encouraged heart healthy diet and exercise Assessment & Plan (05/10/2020 8:33 AM CDT): Obesity is unchanged. Discussed the patient's BMI. The BMI is above average. BMI management plan is completed. BMI Follow-up includes: nutrition counseling, exercise counseling and education provided. Assessment & Plan (04/18/2020 7:47 AM LIGHTHOUSE KEEPER): Obesity is unchanged. Discussed the patient's BMI. The BMI is above average. BMI management plan is completed. BMI Follow-up includes: nutrition counseling, exercise counseling and education provided. Assessment & Plan (11/14/2019 8:47 AM CDT): BMI Follow-up includes: Discussed diet and exercising counseling. Assessment & Plan (10/16/2019 9:45 AM CDT): Obesity is unchanged. Discussed the patient's BMI. The BMI is above average. BMI management plan is completed. BMI Follow-up includes: nutrition counseling, exercise counseling and education provided. Diverticulosis 10/16/2019 Assessment & Plan (04/18/2020 10:22 AM LIGHTHOUSE KEEPER): Advised high fiber heart healthy diet Assessment & Plan (10/16/2019 10:35 AM CDT): will continue with high fiber diet, decreased nuts/seeds followed by net developer software engineer c History of right hip replacement 10/16/2019 H/O abdominoplasty 10/16/2019 History of cholecystectomy 10/16/2019 S/P GOPI-BSO 10/16/2019 Sleep disturbance 10/16/2019 Overview (10/16/2019): will order sleep study to evaluate further Vitamin D deficiency 10/16/2019 Menopause 10/16/2019 Encounter for Medicare annual wellness exam 09/23 Assessment & Plan (11/04/2020 2:15 PM CDT): Advised screening bmd Assessment & Plan (10/16/2019 10:37 AM CDT): Will order DEXA to evaluate further Aphasia 10/16/2019 Assessment & Plan (11/14/2019 9:48 AM CDT): Declines further evaluation at this time. Assessment & Plan (10/16/2019 10:50 AM CDT): Mri of head without contrast to evaluate further Has appt pending with neurology that she will keep Unspecified inflammatory spondylopathy, lumbar r egion 10/16/2019 Assessment & Plan (10/16/2019 10:52 AM CDT): Continue with [facility] spine with physiatry as planned Essential hypertension 07/10/2019 Assessment & Plan (10/13/2021 12:48 PM CDT): Will start lisinopril 10mg every day. Advised goal bp 120-130/80s, advised monitoring at home and letting us know over the next week her bp log as medication may need to be adjusted. Assessment & Plan (11/04/2020 2:14 PM CDT): Stable, continue medications same Assessment & Plan (10/16/2019 10:34 AM CDT): Managed by cardiology, continue medications same Contraindication to statin medication 07/10/2019 Other chest pain 08/08/2018 H/O hypokalemia 07/25/2018 Assessment & Plan (10/16/2019 10:35 AM CDT): Fasting labs entered, will notify patient of results as available Assessment & Plan (03/24/2019 4:07 PM LIGHTHOUSE KEEPER): Controlled Statin myopathy 02/28/2018 Pure hypercholesterolemia 06/21/2017 Assessment & Plan (11/04/2020 2:15 PM CDT): Continue meds same Assessment & Plan (10/16/2019 10:35 AM CDT): Fasting labs entered, will notify patient of results as available Assessment & Plan (11/22/2017 9:00 AM CDT): Patient developed severe from GI tests after the catheterization and could not tolerate it. Repeat bath I brought down the LDL cholesterol from 146 to 85. She did not tolerate statins even at low dosage 2 times a week. Discussed with the patient that we have to go to second-line treatment including cholestyramine. She complains of severe constipation and therefore cholestyramine will be an option here. Recheck lipid panel in 3 months. Assessment & Plan (06/21/2017 11:12 AM CDT): She did not tolerate 3 different statins in the past including Lipitor, Zocor, Crestor. She tried Zetia however it did not change her cholesterol level and therefore it was stopped. I discussed with the patient the option of trying Crestor 10 mg 3 times a week. We will try 1st 5 mg 3 times a week for 1 week and then 10 mg. Will repeat lipid panel in 2 months and if there is no decrease in cholesterol then we will consider starting her on Repatha. Gastroesophageal reflux disease 10/25/2015 Assessment & Plan (11/20/2022 7:01 PM CDT): We would like the patient to stay on Nexium particularly if she is going to stay on an NSAID Assessment & Plan (07/10/2022 6:52 PM CDT): We will offer the patient a script for AcipHex as this had been PPI she would had found more helpful in the past. If it is expensive with her current insurance, it appears to be very affordable at [facility]. Her previous manometry and pH impedance was more consistent with hypersensitivity rather than reflux so this symptom may also be worsened by her stress. Assessment & Plan (10/13/2021 12:48 PM CDT): Continue with Dr. Guillaume. Refill meds as needed. Assessment & Plan (11/04/2020 2:15 PM CDT): Monitored by gi, continue medications same Assessment & Plan (06/13/2020 7:44 PM CDT): The patient can use Tums as needed. Her pH impedance and motility testing were more consistent with periodically reflux but fairly significant hypersensitivity to these events. As the fundic polyps are likely related to AcipHex, reasonable to see how well she can do off a PPI Assessment & Plan (04/18/2020 10:21 AM LIGHTHOUSE KEEPER): We reviewed egd biopsy results. Will continue with care per gi. Assessment & Plan (03/20/2020 11:27 AM LIGHTHOUSE KEEPER): Continue with care and testing per GI. Assessment & Plan (02/19/2020 12:54 PM LIGHTHOUSE KEEPER): Will send for covid test today. Will notify her of results as available. Advised her in the interim to report to er if worsening. Will start on proventil hfa and change aciphex to dexilant. Chronic bilateral low back pain with bilateral s ciatica 08/14/2015 Assessment & Plan (05/20/2022 2:50 PM CDT): XR L-spine and MRI L-spine revealed multilevel degenerative changes. Sees PM and neurosurgeon. Based on MRI, there is no evidence for inflammatory arthritis involving the lumbar spine and likely pain is a combination of degenerative arthritis and fibromyalgia. Continues LESI per PM. Previous flare involving sciatica and given prednisone taper from ER with benefit. Seeing ortho spine 05/26/22. Consider spinal cord stimulator. Assessment & Plan (03/24/2022 10:43 AM LIGHTHOUSE KEEPER): XR L-spine and MRI L-spine revealed multilevel degenerative changes. Sees PM and neurosurgeon. Based on MRI, there is no evidence for inflammatory arthritis involving the lumbar spine and likely pain is a combination of degenerative arthritis and fibromyalgia. Continues LESI per PM. Recent flare involving sciatica and given prednisone taper from ER with benefit. Assessment & Plan (10/06/2021 12:22 PM CDT): XR L-spine and MRI L-spine revealed multilevel degenerative changes. Sees PM and neurosurgeon. Based on MRI, there is no evidence for inflammatory arthritis involving the lumbar spine and likely pain is a combination of degenerative arthritis and fibromyalgia. Will evaluate response to Lyrica. Continue to follow with PM. Should she fail lyrica and PM, then next step is likely considering surgical intervention. Assessment & Plan (07/30/2021 1:18 PM CDT): Advised xray ls spine, will notify pt of results as available Advised patient of cauda equina symptoms, reporting to the ER if she experiences these. She will continue with care per PM. Advised her to use her cane. Assessment & Plan (10/16/2019 10:34 AM CDT): Managed by optomechanical engineer via [facility] Osteoarthritis of hip 03/13/2015 Resolved Problems Problem Noted Date Diagnosed Date Resolved Date Class 1 obesity due to exces s calories with serious comorbidity and body mass index (BMI) of 31.0 to 31.9 in adult 01/27/2023 08/23/2023 Obesity (BMI 30-39.9) 03/13/20224 Assessment & Plan (12/14/2022 9:18 AM CDT): Discussed the patients BMI: The BMI is above average BMI management is complete. BMI follow-up includes: Nutrition Counseling and education provided Assessment & Plan (03/13/2022 8:16 AM LIGHTHOUSE KEEPER): Obesity is unchanged. Discussed the patient's BMI. The BMI is above average. BMI management plan is completed. BMI Follow-up includes: nutrition counseling, exercise counseling and education provided. BMI 30.0-30.9,adult 03/13/2022 03/16/19 24 Assessment & Plan (05/27/2022 1:44 PM CDT): Discussed the patients BMI: The BMI is above average BMI management is complete. BMI follow-up includes: Nutrition Counseling and education provided Assessment & Plan (03/13/2022 8:16 AM LIGHTHOUSE KEEPER): Obesity is unchanged. Discussed the patient's BMI. The BMI is above average. BMI management plan is completed. BMI Follow-up includes: nutrition counseling, exercise counseling and education provided. Rheumatoid arthritis involvi ng multiple sites with positive rheumatoid factor 03/13/2022 05/21/19 Obesity (BMI 30-39.9) 01/28/20222022 Assessment & Plan (01/28/2022 8:30 AM LIGHTHOUSE KEEPER): Obesity is unchanged. Discussed the patient's BMI. The BMI is above average. BMI management plan is completed. BMI Follow-up includes: nutrition counseling, exercise counseling and education provided. BMI 30.0-30.9,adult 01/28/2022 03/13/19 23 Assessment & Plan (01/28/2022 8:30 AM LIGHTHOUSE KEEPER): Obesity is unchanged. Discussed the patient's BMI. The BMI is above average. BMI management plan is completed. BMI Follow-up includes: nutrition counseling, exercise counseling and education provided. BMI 29.0-29.9,adult 12/02/2021 01/29/20 22 Assessment & Plan (12/02/2021 2:24 PM CDT): Weight/BMI is in healthy range. Continue healthy lifestyle to maintain. Abrasion of right arm 06/12/20212021 Assessment & Plan (06/12/2021 12:51 PM CDT): Will initiate bactroban tid x 7 days Advised keeping warm and dry. Discussed using bandage if completing yard work or leaving the house. Advised f/u in 1w if not improving, sooner if worsening. Depression 05/08/2021 08/20/2021 Psoriatic arthritis 04/14/2021 05/04/19 Overview (10/12/2023): 09/21/23: B12 1227, CMP nl, PLT 496, ESR 38, CRP 0.74mg/dL, TSH 2.62, FT 1.0, Vit D 39, RF <14, CCP <16, MVC <20, ferritin 27 Labs (04/14/21): Neg 14.3.3 eta, Ca 10.6, Plt 560, ESR 51, CRP 11.2 Labs 10/06/21: RF <14, CCP <16, 14.3.3 eta <0.2, ESR 39, CRP 6.1 AVISE (04/14/21): +APRIL 1:160 speckled XR b/l hands 09/2023: scattered arthritic changes typical of OA, most notable in the IP joint of the thumb and finger and 1st CMC joint. Moderate in the right 1st IP joint, 2nd/3rd DIP joints. US right hand/wrist (04/21/21): Small grade 1 power doppler in the 2nd PIP joint. Cortical irregularity without confirmed erosions in the 2nd MCP joint. No significant joint effusions or synovial thickening appreciated on US exam. An additional transverse view of the right knee reveals a small area of hyperechoic reflection and intrarticular aggregate which can be seen with chondrocalcinosis. US right hand/wrist (10/09/21): The volar 1st IP joint reveals spurring with a grade 1 effusion and grade 2 power doppler. The dorsal 1st IP joint reveals spurring with a grade 1 effusion and grade 1 power doppler. The dorsal 2nd DIP joint reveals a grade 1 power doppler. Grade 1 power doppler in the radial/scaphoid joint. Mild synovial thickening in the 4th MCP and 2nd PIP joints. US right hand/wrist (10/05/23):: Mild synovial thickening of the dorsal wrist with grade 2 power Doppler Grade 1 power Doppler of the radial scaphoid joint Grade 2 power Doppler of the 1st MCP joint Joint space narrowing and bone spur formation of the 1st IP joint with grade 1 volar power Doppler Mild synovial thickening of the 2nd PIPJ Mild spurring of the 1st CMC joint Findings are compared to previous exam dated 10/09/21 showing increased synovial thickening and power Doppler of the dorsal wrist with stability in the radial scaphoid joint. New power Doppler signal in the 1st MCPJ with continued narrowing and osteophyte formation of the 1st IP joint. Improved synovial thickening of the 4th MCPJ with stable mild thickening of the 2nd PIPJ. Assessment & Plan (05/03/2024 9:02 AM CDT): Prior diagnosis but does not appear active based on repeat serologies, XR, hand US (2023) and lack of response to systemic steroids. Will defer any specific treatment at this time. Assessment & Plan (10/19/2023 10:43 AM CDT): Prior diagnosis but does not appear active based on recent repeat serologies, XR, hand US and lack of response to systemic steroids. Will defer any specific treatment at this time. Assessment & Plan (09/21/2023 11:22 AM CDT): Due to progressive joint complaints that respond to systemic steroids, intermittently elevated ESR/CRP, and new inflammatory activity on hand US, symptoms may correlate with an underlying inflammatory arthritis. FHx of daughter with psoriasis and patient is seronegative so may have a spondyloarthropathy, specifically psoriatic arthritis. She had been well maintained on humira monotherapy until 04/2022 when she noted onset of dry, itchy skin on her face, ears, and scalp which was suspicious for possible psoriasis and could have been exacerbated by humira as she has never had psoriasis before. Rash resolved with kenalog IM 04/2022 and discontinuation of humira. S/e to Xeljanz, Enbrel, and Cosentyx SQ. Lately, c/o increased generalized muscle and joint pain after starting Plavix following CT s/p stent. Due to increased generalized pain complaints in the joints and muscles, will get updated serologies, XR, and R hand/wrist US to better evaluate for the possibility of involvement of previously diagnosed PsA before considering any specific tx. No significant relief with recent high dose oral prednisone per PCP makes an inflammatory opponent less likely. Follow up in 4 weeks to discuss results. Sooner if needed. Assessment & Plan (01/25/2023 9:31 AM LIGHTHOUSE KEEPER): Previously isloated APRIL 1:160 on AVISE with unremarkable hand US. C/o progression of pain in the bilateral hands (R>L) particularly the R 1st MCP and IP joints so repeated serologies which revealed negative RF, CCP, and 14.3.3 eta however repeat R hand/wrist US did show some power Doppler and effusion in the 1st IP and 2nd DIP which could indicate inflammation. She does endorse benefit of hand and SI joint pain with kenalog IM and oral prednisone tapers which again may indicate an underlying inflammatory arthritis. Previously failed multiple NSAIDs either due to no benefit or GI s/e. MTX caused GI s/e and hair thinning so was discontinued. She had been well maintained on humira monotherapy until 04/2022 when she noted onset of dry, itchy skin on her face, ears, and scalp which was suspicious for possible psoriasis and could have been exacerbated by humira as she has never had psoriasis before. Rash resolved with kenalog IM 04/2022 and discontinuation of humira. Tried Xeljanz 11mg daily but caused heart palpitations, mood changes, and headaches. Due to progressive joint complaints that respond to systemic steroids, intermittently elevated ESR/CRP, and new inflammatory activity on hand US, symptoms may correlate with an underlying inflammatory arthritis. FHx of daughter with psoriasis and patient is seronegative so may have a spondyloarthropathy, specifically psoriatic arthritis. Cdai 28. Jazmin was forced to stop Enbrel after last visit due to injection site reactions increased fatigue. Presents today with persistent chronic joint complaints, which are most notable in the bilateral hands. Will start approval for Cosentyx 150 mg Q 28 day injections after loading dose. Patient advised of the side effects of the medication, including but not limited to increase risk of infection, rash, injection site reaction. Routine labs today. Follow-up 6-8 weeks. Sooner if needed Assessment & Plan (12/29/2022 11:49 AM LIGHTHOUSE KEEPER): Previously isloated APRIL 1:160 on AVISE with unremarkable hand US. C/o progression of pain in the bilateral hands (R>L) particularly the R 1st MCP and IP joints so repeated serologies which revealed negative RF, CCP, and 14.3.3 eta however repeat R hand/wrist US did show some power Doppler and effusion in the 1st IP and 2nd DIP which could indicate inflammation. She does endorse benefit of hand and SI joint pain with kenalog IM and oral prednisone tapers which again may indicate an underlying inflammatory arthritis. Previously failed multiple NSAIDs either due to no benefit or GI s/e. MTX caused GI s/e and hair thinning so was discontinued. She had been well maintained on humira monotherapy until 04/2022 when she noted onset of dry, itchy skin on her face, ears, and scalp which was suspicious for possible psoriasis and could have been exacerbated by humira as she has never had psoriasis before. Rash resolved with kenalog IM 04/2022 and discontinuation of humira. Tried Xeljanz 11mg daily but caused heart palpitations, mood changes, and headaches. Due to progressive joint complaints that respond to systemic steroids, intermittently elevated ESR/CRP, and new inflammatory activity on hand US, symptoms may correlate with an underlying inflammatory arthritis. FHx of daughter with psoriasis and patient is seronegative so may have a spondyloarthropathy, specifically psoriatic arthritis. Will start approval of Enbrel 50mg SQ weekly. Patient advised of the side effects of the medication including but not limited to increased risk of infection and/or rash. Given handout discussing risks and benefits of medication. Will check routine labs next visit. Follow up in 2-3 months. Sooner if needed. Assessment & Plan (11/17/2022 6:07 PM CDT): Previously isloated APRIL 1:160 on AVISE with unremarkable hand US. C/o progression of pain in her bilateral hands (R>L) particularly the R 1st MCP and IP joints so repeated serologies which revealed negative RF, CCP, and 14.3.3 eta however repeat R hand/wrist US did show some power Doppler and effusion in the 1st IP and 2nd DIP which could indicate inflammation. She does endorse benefit of hand and SI joint pain with kenalog IM and oral prednisone tapers which again may indicate an underlying inflammatory arthritis. Previously failed multiple NSAIDs either due to no benefit or GI s/e. MTX caused GI s/e and hair thinning so was discontinued. She had been well maintained on humira monotherapy until 04/2022 when she noted onset of dry, itchy skin on her face, ears, and scalp which was suspicious for possible psoriasis and could have been exacerbated by humira as she has never had psoriasis before. Rash resolved with kenalog IM 04/2022 and discontinuation of humira. Due to progressive joint complaints that respond to systemic steroids, intermittently elevated ESR/CRP, and new inflammatory activity on hand US, symptoms may correlate with an underlying inflammatory arthritis. FHx of daughter with psoriasis and patient is seronegative so may have a spondyloarthropathy, specifically psoriatic arthritis. Xeljanz ER 11mg daily approved however patient is hesitant due to potential s/e and risk of infection. Discussed trying low dose (5mg daily) and she is amenable to trying this today. Samples of xeljanz 5mg daily provided at today's visit. Routine labs today. Follow up in 2 months. If tolerating but joint symptoms remain uncontrolled, then could consider increasing to 11mg daily next visit. F/u at next scheduled visit in 6 weeks. Sooner if needed. Assessment & Plan (09/17/2022 8:45 AM CDT): Previously isloated APRIL 1:160 on AVISE with unremarkable hand US. C/o progression of pain in her bilateral hands (R>L) particularly the R 1st MCP and IP joints so repeated serologies which revealed negative RF, CCP, and 14.3.3 eta however repeat R hand/wrist US did show some power Doppler and effusion in the 1st IP and 2nd DIP which could indicate inflammation. She does endorse benefit of hand and SI joint pain with kenalog IM and oral prednisone tapers which again may indicate an underlying inflammatory arthritis. Previously failed multiple NSAIDs either due to no benefit or GI s/e. MTX caused GI s/e and hair thinning so was discontinued. She had been well maintained on humira monotherapy however until 04/2022 when she noted onset of dry, itchy skin on her face, ears, and scalp which was suspicious for possible psoriasis and could have been exacerbated by humira as she has never had psoriasis before. Rash resolved with kenalog IM 04/2022. Due to progressive joint complaints that respond to systemic steroids, intermittently elevated ESR/CRP, and new inflammatory activity on hand US, symptoms may correlate with an underlying inflammatory arthritis. FHx of daughter with psoriasis and patient is seronegative so may have a spondyloarthropathy, specifically psoriatic arthritis. Again discussed treatment options and she is open to Rinvoq at this time. Will start approval of Rinvoq Er 15mg daily. Discussed potential side effects of the medication, including but not limited to increased risk of infection, headache, diarrhea, bowel perforation, and/or lymphoma risk. Due to burden of disease, will administer kenalog 100 mg IM injection, in office, today. Follow up in 2 months. Sooner if needed. Assessment & Plan (08/28/2022 9:26 AM CDT): Previously isloated APRIL 1:160 on AVISE with unremarkable hand US. C/o progression of pain in her bilateral hands (R>L) particularly the R 1st MCP and IP joints so repeated serologies which revealed negative RF, CCP, and 14.3.3 eta however repeat R hand/wrist US did show some power Doppler and effusion in the 1st IP and 2nd DIP which could indicate inflammation. She does endorse benefit of hand and SI joint pain with kenalog IM and oral prednisone tapers which again may indicate an underlying inflammatory arthritis. Previously failed multiple NSAIDs either due to no benefit or GI s/e. MTX caused GI s/e and hair thinning so was discontinued. She had been well maintained on humira monotherapy however until 04/2022 when she noted onset of dry, itchy skin on her face, ears, and scalp which was suspicious for possible psoriasis and could have been exacerbated by humira as she has never had psoriasis before. Rash resolved with kenalog IM 04/2022. Due to progressive joint complaints that respond to systemic steroids, intermittently elevated ESR/CRP, and new inflammatory activity on hand US, symptoms may correlate with an underlying inflammatory arthritis. FHx of daughter with psoriasis and patient is seronegative so may have a spondyloarthropathy, specifically psoriatic arthritis. Again discussed treatment options and she prefers to remain off biologics at this time. She prefers to try otc analgesics like ibuprofen, tylenol, aleve, and turmeric. Should joint pain worsen and she want to reconsider biologics, would favor Rinvoq vs possible IL-17 next. Patient has previously asked about frequency of kenalog injections as they greatly benefit her joint pain however we do not like to give these frequently due to risk of side effects and there are better alternatives for long-term treatment of PsA. Follow up in 4-6 months. Sooner if needed. Assessment & Plan (06/17/2022 11:02 AM CDT): Previously isloated APRIL 1:160 on AVISE with unremarkable hand US. C/o progression of pain in her bilateral hands (R>L) particularly the R 1st MCP and IP joints so repeated serologies which revealed negative RF, CCP, and 14.3.3 eta however repeat R hand/wrist US did show some power Doppler and effusion in the 1st IP and 2nd DIP which could indicate inflammation. She does endorse benefit of hand and SI joint pain with kenalog IM and oral prednisone tapers which again may indicate an underlying inflammatory arthritis. Previously failed multiple NSAIDs either due to no benefit or GI s/e. MTX caused GI s/e and hair thinning so was discontinued. She had been well maintained on humira monotherapy however until when she noted onset of dry, itchy skin on her face, ears, and scalp which is suspicious for possible psoriasis and could have been exacerbated by humira as she has never had psoriasis before. Rash resolved with kenalog IM 04/2022. Due to progressive joint complaints that respond to systemic steroids, intermittently elevated ESR/CRP, and new inflammatory activity on hand US, symptoms may correlate with an underlying inflammatory arthritis. FHx of daughter with psoriasis and patient is seronegative so may have a spondyloarthropathy, specifically psoriatic arthritis. Discussed treatment options and she prefers to stop biologics at this time. She prefers to try otc analgesics like ibuprofen, tylenol, aleve, and turmeric. Should joint pain worsen and she want to reconsider biologics, would favor Rinvoq vs possible IL-17 next. Patient again asked about frequency of kenalog injections as they greatly benefit her joint pain however we do not like to give these frequently due to risk of side effects and there are better alternatives for long-term treatment of PsA. Follow up in 3-4 months. Sooner if needed. Assessment & Plan (05/20/2022 2:49 PM CDT): Previously isloated APRIL 1:160 on AVISE with unremarkable hand US. C/o progression of pain in her bilateral hands (R>L) particularly the R 1st MCP and IP joints so repeated serologies which revealed negative RF, CCP, and 14.3.3 eta however repeat R hand/wrist US did show some power Doppler and effusion in the 1st IP and 2nd DIP which could indicate inflammation. She does endorse benefit of hand and SI joint pain with kenalog IM and oral prednisone tapers which again may indicate an underlying inflammatory arthritis. Previously failed multiple NSAIDs either due to no benefit or GI s/e. MTX caused GI s/e and hair thinning so was discontinued. She has been well maintained on humira monotherapy however has recently noticed onset of dry, itchy skin on her face, ears, and scalp which is suspicious for possible psoriasis which could be exacerbated by humira as she has never had psoriasis before. Due to progressive joint complaints that respond to systemic steroids, intermittently elevated ESR/CRP, and new inflammatory activity on hand US, symptoms may correlate with an underlying inflammatory arthritis. FHx of daughter with psoriasis and patient is seronegative so may have a spondyloarthropathy, specifically psoriatic arthritis. Will hold humira at this time. Will give Kenalog IM and monitor for improvement of rash. Should rash resolve by next visit, then will discuss changing biologic to Rinvoq vs possible IL-17 next. Recommend keeping appt with derm in case rash does not resolve. Follow up in 1 month. Sooner if needed. Assessment & Plan (03/24/2022 10:41 AM LIGHTHOUSE KEEPER): Previously isloated APRIL 1:160 on AVISE with unremarkable hand US. C/o progression of pain in her bilateral hands (R>L) particularly the R 1st MCP and IP joints so repeated serologies which revealed negative RF, CCP, and 14.3.3 eta however repeat R hand/wrist US did show some power Doppler and effusion in the 1st IP and 2nd DIP which could indicate inflammation. She does endorse benefit of hand and SI joint pain with kenalog IM and oral prednisone tapers which again may indicate an underlying inflammatory arthritis. Previously failed multiple NSAIDs either due to no benefit or GI s/e. MTX caused GI s/e and hair thinning so was discontinued. She is well maintained on humira monotherapy. Due to progressive joint complaints that respond to systemic steroids, intermittently elevated ESR/CRP, and new inflammatory activity on hand US, symptoms may correlate with an underlying inflammatory arthritis. FHx of daughter with psoriasis and patient is seronegative so may have a spondyloarthropathy, specifically psoriatic arthritis. Will continue humira 40mg SQ [id number]. Recent labs reviewed. Follow up in 4 months. Sooner if needed. Assessment & Plan (01/20/2022 10:29 AM LIGHTHOUSE KEEPER): Previously isloated APRIL 1:160 on AVISE with unremarkable hand US. C/o progression of pain in her bilateral hands (R>L) particularly the R 1st MCP and IP joints so repeated serologies which revealed negative RF, CCP, and 14.3.3 eta however repeat R hand/wrist US did show some power Doppler and effusion in the 1st IP and 2nd DIP which could indicate inflammation. She does endorse benefit of hand and SI joint pain with kenalog IM and oral prednisone tapers which again may indicate an underlying inflammatory arthritis. Previously failed multiple NSAIDs either due to no benefit or GI s/e. Due to progressive joint complaints that respond to systemic steroids, intermittently elevated ESR/CRP, and now possible inflammatory activity on hand US, symptoms may correlate with an underlying inflammatory arthritis. FHx of daughter with psoriasis and patient is seronegative so may have a spondyloarthropathy. Will continue humira 40mg SQ [id number] and give this more time to take effect. Continue MTX 20mg weekly and FA 2mg daily. Routine labs today. Follow up in 2-3 months. Sooner if needed. Assessment & Plan (12/22/2021 1:00 PM CDT): Previously isloated APRIL 1:160 on AVISE with unremarkable hand US. C/o progression of pain in her bilateral hands (R>L) particularly the R 1st MCP and IP joints so repeated serologies which revealed negative RF, CCP, and 14.3.3 eta however repeat R hand/wrist US did show some power Doppler and effusion in the 1st IP and 2nd DIP which could indicate inflammation. She does endorse benefit of hand and SI joint pain with kenalog IM and oral prednisone tapers which again may indicate an underlying inflammatory arthritis. Previously failed multiple NSAIDs either due to no benefit or GI s/e. Due to progressive joint complaints that respond to systemic steroids, intermittently elevated ESR/CRP, and now possible inflammatory activity on hand US, symptoms may correlate with an underlying inflammatory arthritis. FHx of daughter with psoriasis and patient is seronegative so may have a spondyloarthropathy. No obvious benefit with MTX 12.5mg weekly and feels joint complaints continue to progress so discussed addition of a biologic like humira which she is amenable to starting. Will start approval of Humira 40mg [id number]. Patient advised of the side effects of the medication, including but not limited to increase risk of infection, rash, injection site reaction. Increase MTX 20mg weekly and continue FA 2mg daily. Routine labs today. Follow up in 1 month. Sooner if needed. Seen with Dr. Blankenship. Due to burden of disease, will administer kenalog 100 mg IM injection, in office, today. Assessment & Plan (11/17/2021 5:34 PM CDT): Previously isloated APRIL 1:160 on AVISE with unremarkable hand US. C/o progression of pain in her bilateral hands (R>L) particularly the R 1st MCP and IP joints so repeated serologies which revealed negative RF, CCP, and 14.3.3 eta however repeat R hand/wrist US did show some power Doppler and effusion in the 1st IP and 2nd DIP which could indicate inflammation. She does endorse benefit of hand and SI joint pain with kenalog IM and oral prednisone tapers which again may indicate an underlying inflammatory arthritis. Previously failed multiple NSAIDs either due to no benefit or GI s/e. Due to progressive joint complaints that respond to systemic steroids, intermittently elevated ESR/CRP, and now possible inflammatory activity on hand US, symptoms may correlate with an underlying inflammatory arthritis. FHx of daughter with psoriasis and patient is seronegative so may have a spondyloarthropathy. Will try MTX 12.5mg weekly and folic acid 1mg daily. Patient advised of the side effects of the medication, including but not limited to increased risk of infection, GI upset, increased LFTs, mouth sores, rash, diarrhea, and/or blood count abnormalities. Patient provided informational handout about MTX. Could potentially consider tx with humira in the future if spinal/SI complaints would worsen and or MTX does not offer great relief. Follow up in 1 month. Sooner if needed. Seen with Dr. Blankenship. Assessment & Plan (10/06/2021 12:24 PM CDT): Previously had isloated APRIL 1:160 but AVISE was otherwise unremarkable for any other autoantibodies and previous hand US did not reveal any significant inflammatory findings to suggest an inflammatory arthritis. Since last visit, she has noticed progression of pain complaints in her bilateral hands (R>L) particularly the R 1st MCP and IP joints. Reports previous benefit of hand pain with kenalog IM and oral prednisone tapers. Failed multiple NSAIDs either due to no benefit or GI s/e. Due to progressive joint complaints with elevated ESR/CRP, will re-evaluate for an underlying inflammatory arthritis. Will check appropriate serologies, radiographs, and a right hand/wrist US including the 1st MCP/IP joints. Will give kenalog IM following hand US. Follow up in 4 weeks. Sooner if needed. Seen with Dr. Blankenship. Assessment & Plan (07/01/2021 11:41 AM CDT): Isloated APRIL 1:160 but AVISE was otherwise unremarkable for any other autoantibodies. APRIL is nonspecific and she has no other symptoms or serologies to suggest a CTD. No obvious synovitis was noted on hand US and no obvious synovitis is noted again today on physical exam. She is unable to tolerate diclofenac or nabumetone due to GI s/e. Notes Vioxx worked the best in the past so will consider retrying Celebrex at this time. At this time, US findings and serologies are unremarkable for an inflammatory arthritis. Elevated inflammatory markers are nonspecific and do not correlate with physical exam findings. Will try Celebrex 200mg daily and if no benefit then can increase to 200mg BID. If she notes relief with this then will have her f/u with PCP regarding further refills. At this time there is no evidence for an autoimmune disease and her joint complaints appear to be due to degenerative arthritis. Follow up as needed. Seen with Dr. Blankenship. Assessment & Plan (04/29/2021 5:04 PM LIGHTHOUSE KEEPER): US right hand/wrist (04/21/21): Small grade 1 power doppler in the 2nd PIP joint. Cortical irregularity without confirmed erosions in the 2nd MCP joint. No significant joint effusions or synovial thickening appreciated on US exam. An additional transverse view of the right knee reveals a small area of hyperechoic reflection and intrarticular aggregate which can be seen with chondrocalcinosis. Serologies revealed a low positive APRIL 1:160 but was otherwise unremarkable for any other autoantibodies. APRIL is nonspecific and she has no other symptoms or serologies to suggest a CTD. ESR (51) and CRP (11.2) are elevated as well as platelet count (560K). Patient received kenalog IM following hand US due to various joint complaints and does report continued relief of the hands. No obvious synovitis was noted on hand US and no obvious synovitis is noted again today on physical exam however she does have diffuse tenderness mainly in the right hand. At this time, US findings and serologies are unremarkable for an inflammatory arthritis. Elevated inflammatory markers are nonspecific and do not correlate with physical exam findings. FHx of psoriasis so will monitor for any changes to suggest an inflammatory arthritis however suspicion remains low at this time. Will start diclofenac 75mg BID for pain relief. Discussed side effects of the medication, including but not limited to GI upset, kidney, and ulcers. Follow up in 3 months. Sooner if needed. Seen with Dr. Blankenship. Assessment & Plan (04/14/2021 5:31 PM LIGHTHOUSE KEEPER): 70-year-old female with PMHx of FM, gout, s/p R CRISTAL, depression, and dry eyes c/o chronic joint pain involving the low back/SI joints, b/l knees, hands, and neck. SI pain improves with activity and CSI injections and worsens with prolonged sitting or standing. Joint pain previously improved with Vioxx and prednisone taper which is suspicious for an inflammatory arthritis. Questionable hx of rash that may be concerning for psoriasis and FHx of daughter with psoriasis. Symptoms and exam are suspicious for an inflammatory arthritis, such as psoriatic arthritis. Based on previous radiographs she appears to have overlapping lumbar spondylosis and spinal stenosis which she currently sees pain management for. Will order appropriate serologies, radiographs, and a right hand/wrist US to further evaluate. Follow up in 2 weeks. Sooner if needed. Seen with Dr. Blankenship. Acute intractable headache 01/27/2021 0 08/20/2021 Assessment & Plan (01/27/2021 9:30 AM LIGHTHOUSE KEEPER): Advised ct of head, referral to neurology Advised labs today - will notify her of results as they are available Acute cystitis without hematuria 12/17/2020 06/12/2021 Assessment & Plan (12/30/2020 8:40 PM LIGHTHOUSE KEEPER): resolved Assessment & Plan (12/17/2020 11:07 AM CDT): Culture urine Start on cipro bid - advised f/u in next week if symptoms aren't improving, sooner if they worsen Medicare annual wellness visit, subsequent 11/04/2020 08/20/2021 Dermatitis 08/29/2020 08/20/2021 Obesity (BMI 30-39.9) 08/01/20202020 Assessment & Plan (12/17/2020 9:51 AM CDT): Obesity is unchanged. Discussed the patient's BMI. The BMI is above average. BMI management plan is completed. BMI Follow-up includes: nutrition counseling, exercise counseling and education provided. Assessment & Plan (11/04/2020 8:27 AM CDT): Obesity is unchanged. Discussed the patient's BMI. The BMI is above average. BMI management plan is completed. BMI Follow-up includes: nutrition counseling, exercise counseling and education provided. Assessment & Plan (10/08/2020 9:12 AM CDT): Obesity is unchanged. Discussed the patient's BMI. The BMI is above average. BMI management plan is completed. BMI Follow-up includes: nutrition counseling, exercise counseling and education provided. Assessment & Plan (08/29/2020 9:09 AM CDT): Obesity is unchanged. Discussed the patient's BMI. The BMI is above average. BMI management plan is completed. BMI Follow-up includes: nutrition counseling, exercise counseling and education provided. Assessment & Plan (08/01/2020 9:03 AM CDT): Obesity is unchanged. Discussed the patient's BMI. The BMI is above average. BMI management plan is completed. BMI Follow-up includes: nutrition counseling, exercise counseling and education provided. BMI 30.0-30.9,adult 08/01/2020 08/21/19 22 Assessment & Plan (12/30/2020 8:38 PM LIGHTHOUSE KEEPER): Obesity is unchanged. Discussed the patient's BMI. The BMI is above average. BMI management plan is completed. BMI Follow-up includes: nutrition counseling, exercise counseling and education provided. Assessment & Plan (12/17/2020 9:52 AM CDT): Obesity is unchanged. Discussed the patient's BMI. The BMI is above average. BMI management plan is completed. BMI Follow-up includes: nutrition counseling, exercise counseling and education provided. Assessment & Plan (11/04/2020 8:28 AM CDT): Obesity is unchanged. Discussed the patient's BMI. The BMI is above average. BMI management plan is completed. BMI Follow-up includes: nutrition counseling, exercise counseling and education provided. Assessment & Plan (10/08/2020 9:13 AM CDT): Obesity is unchanged. Discussed the patient's BMI. The BMI is above average. BMI management plan is completed. BMI Follow-up includes: nutrition counseling, exercise counseling and education provided. Assessment & Plan (08/29/2020 9:09 AM CDT): Obesity is unchanged. Discussed the patient's BMI. The BMI is above average. BMI management plan is completed. BMI Follow-up includes: nutrition counseling, exercise counseling and education provided. Assessment & Plan (08/01/2020 9:03 AM CDT): Obesity is unchanged. Discussed the patient's BMI. The BMI is above average. BMI management plan is completed. BMI Follow-up includes: nutrition counseling, exercise counseling and education provided. Itching 05/10/2020 11/04/2020 Assessment & Plan (05/10/2020 12:50 PM CDT): She was offered and advised further evaluation of symptoms with labs and imaging. She declines any stat testing at this time. She will stop using the steroid cream on her face. She will report to the ER this weekend if worsening. Hyponatremia 04/18/2020 11/04/2020 Assessment & Plan (04/18/2020 10:22 AM LIGHTHOUSE KEEPER): Resolved. We reviewed recent labs. Continue medication same at this time. LUQ abdominal pain 03/20/2020 Assessment & Plan (11/04/2020 2:15 PM CDT): Continue with care per gi Assessment & Plan (10/08/2020 6:07 PM CDT): We reviewed abd imaging Advised f/u with gi Assessment & Plan (08/29/2020 12:31 PM CDT): Decrease otc fiber by 1/2 of the dosing instructions Will order ct abd/pelvis to evaluate further, will notify her of results as available Advised f/u with GI as planned Assessment & Plan (03/20/2020 11:26 AM LIGHTHOUSE KEEPER): Continue with care and testing per GI. Retrieve CT from [facility]. Will evaluate further with abdominal US and labs. Hypokalemia 03/20/2020 11/04/2020 Assessment & Plan (08/29/2020 12:31 PM CDT): Seen on labs at [facility]. Repeat potassium level this week Assessment & Plan (04/18/2020 10:22 AM LIGHTHOUSE KEEPER): Resolved. We reviewed recent labs. Continue medication same at this time. Assessment & Plan (03/20/2020 11:27 AM LIGHTHOUSE KEEPER): Will reevaluate on labs. Discussed likely resolved as she has stopped the diazide. Cough 02/19/2020 08/20/2021 Assessment & Plan (03/20/2020 11:27 AM LIGHTHOUSE KEEPER): resolved Assessment & Plan (02/19/2020 12:54 PM LIGHTHOUSE KEEPER): Will send for covid test today. Will notify her of results as available. Advised her in the interim to report to er if worsening. Will start on proventil hfa and change aciphex to dexilant. Refused influenza vaccine 11/14/2019 Assessment & Plan (11/14/2019 9:50 AM CDT): Refused flu vaccine at this time. She will call if she decides she would like to pursue further. Generalized abdominal pain 11/09/2019 0 11/04/2020 Abdominal cramping 11/09/2019 Assessment & Plan (11/09/2019 7:28 PM CDT): We will offer the patient Levsin for cramping. And she can take this as needed. With her recent ER visit, even though her scan appeared normal she did have electrolyte imbalances, specifically low sodium and potassium. When she had very low potassium last year, she did have a large cluster of symptoms including worsening abdominal pain. She may benefit from staying on a potassium regularly. Hyperglycemia 10/16/2019 08/20/2021 Assessment & Plan (10/16/2019 10:36 AM CDT): Fasting labs entered, will notify patient of results as available Chronic constipation 03/24/2019 022 Assessment & Plan (06/13/2020 7:43 PM CDT): Patient is encouraged to continue her MiraLax and fiber supplementation to achieve a regular stool frequency. She can increase these doses if needed. Assessment & Plan (11/09/2019 7:26 PM CDT): The patient's KUB today still shows stool burden in the right colon and rectum. We would like her to try clearing this out with MiraLax and then restarting a stool regular stool regiment. The GERD and nausea symptoms may improve with improvement constipation. Assessment & Plan (03/24/2019 4:08 PM LIGHTHOUSE KEEPER): Improved with diet modification and as neededlaxatives Gastroesophageal reflux dise ase with esophagitis 07/26/2018 05/08/2021 Overview (07/26/2018): Added automatically from request for surgery [id number] Assessment & Plan (11/09/2019 7:29 PM CDT): Unfortunately Dexilant remains a plan exclusion. She can try and get this through [facility]. Alternatively we could offer her Carafate in conjunction with AcipHex. Assessment & Plan (10/16/2019 10:34 AM CDT): Managed by gastroenterology Assessment & Plan (03/24/2019 4:07 PM LIGHTHOUSE KEEPER): Patient's symptoms her currently manageable with every other day Dexilant. She can use Tums if needed. EGD in July was reassuring. Abnormal findings on radiolo gical examination of gastrointestinal tract 03/04/2017 10/16/2019 Severe episode of recurrent major depressive disorder, without psychotic features 11/05/2016 Overview (10/16/2019): Assessment & Plan (08/29/2020 12:30 PM CDT): Increase prozac to 40mg every day Assessment & Plan (08/01/2020 10:09 AM CDT): Increase prozac to 30mg daily. Will reevaluate in 3-4w, anticipate increasing to 40mg daily for routine utilization. Assessment & Plan (07/24/2020 3:27 PM CDT): Patient makes pact to report to ER if having suicidal or homicidal ideations. Start on Cymbalta daily due to inflammation and joint pain. We discussed she should notice a maximum affect within the next 3 weeks, however we will revisit the conversation in 1 week to consider a quick increase given severity of depression. She is spending the weekend with her grandson and looks forward to having time with him. Assessment & Plan (10/16/2019 10:52 AM CDT): Continue with prozac same Pain of right lower extremity 08/14/2015 10/16/2019 Immunizations Immunization Administration Dates Next Due Influenza, Unspecified 04/10/2024(Deferr ed: Patient Refused),02/23/2024(Deferred: Patient Refused),03/16/2023(Deferred: Patient Refused),02/22/2023(Deferred: Patient Refused),02/22/2023(Deferred: Patient Refused),02/22/2023(Deferred: Patient Refused),02/22/2023(Deferred: Patient Refused),02/22/2023(Deferred: Patient Refused),02/22/2023(Deferred: Patient Refused),02/22/2023(Deferred: Patient Refused),12/14/2022(Deferred: Patient Refused),05/26/2022(Deferred: Patient Refused),02/23/2022(Deferred: Patient Refused),02/22/2022(Deferred: Patient Refused),03/25/2021(Deferred: Patient Refused),03/25/2021(Deferred: Patient Refused),02/24/2021(Deferred: Patient Refused),02/21/2021(Deferred: Patient Refused),12/17/2020(Deferred: Patient Refused) PPD TEST 03/24/2010 Pneumococcal Conjugate Pcv20 02/22/2023( Deferred: Patient Refused),01/27/2023(Deferred: Patient Refused),12/14/2022(Deferred: Patient Refused),02/22/2022(Deferred: Patient Refused) Tdap 06/06/2021,08/02/2015,09/18/2009 ZOSTER Recombinant 03/16/2023(Deferred: Patient Refused) Social History Tobacco Use Types Packs/Day Years Used Date Smoking Tobacco: Never Smokeless Tobacco: Never Tobacco Cessation:Counseling Given: Not Answered Alcohol Use Standard Drinks/Week Comments No 0 (1 standard drink = 0.6 oz pur e alcohol) AUDIT-C Answer Date Recorded Q1: How often do you have a drink containing alcohol? Never 03/30/2023 Q2: How many drinks containi ng alcohol do you have on a typical day when you are drinking? Patient does not drink Q3: How often do you have si x or more drinks on one occasion? Never 03/30/2023 PHQ-2 Answer Date Recorded PHQ-2 Total Score (If total score is 3 or more points, staff should administer the PHQ-9) 0 05/05/2024 PHQ-9 Answer Date Recorded PHQ-9 Total Score 11 08/23/2023 Personal Safety Answer Date Recorded Have you ever been in or are you currently in a harmful physical or emotional relationship or is someone making you feel afraid or unsafe? Denies 04/25/2024 Comments No Sex and Gender Information Value Date Recorded Sex Assigned at Not on file Legal Sex Female 5:33 AM LIGHTHOUSE KEEPER Gender Identity Not on file Sexual Orientation Not on file Occupation Industry Job Start Date Job End Date Retired Not on file Not on file Not on file Last Filed Vital Signs Vital Sign Reading Time Taken Comments Blood Pressure 124/82 05/05/2024 9:49 AM CDT Pulse 93 05/05/2024 9:49 AM CDT Temperature 37.2 C (99 F) 05/05/2024 9:49 AM CDT Respiratory Rate 20 04/25/2024 8:41 AM LIGHTHOUSE KEEPER Oxygen Saturation 96% 05/05/2024 9:49 AM CDT Inhaled Oxygen Concentration - - Weight 64.9 kg (143 lb) 05/05/2024 9:49 AM CDT Height 147.3 cm (4' 10 ) 05/05/2024 9:49 AM CDT Body Mass Index 29.89 05/05/2024 9:49 AM CDT Plan of Treatment Not on file Medical Devices Implanted Type Area [id number] Application Developer Device Identifier Shelf Expiration Date Model / Serial / Lot R-Hip 2014 Right: Hip Procedures Procedure Name Priority Date/Time Associated Diagnosis Comments DC ARTHROCENTESIS ASPIR&/INJ MAJOR JT/BURSA W/US Routine 05/22/2024 1:00 PM CDT Primary osteoarthritis of both knees POCUS ASP/INJ MAJOR JOINT Schedule Routine, Read Routine (OP Routine) 05/22/2024 12:57 PM CDT Primary osteoarthritis of both knees FL FLUORO GUIDED INJECTION HIP LEFT Schedule Routine, Read Routine (OP Routine) 05/19/2024 9:51 AM CDT Primary osteoarthritis of left hip Left hip pain XR PELVIS 1 OR 2 VIEWS Schedule Routine, Read Routine (OP Routine) 05/16/2024 9:45 AM CDT Left hip pain IR INJECTION SI JOINT LEFT WITH GUIDANCE Schedule Routine, Read Routine (OP Routine) 05/12/2024 8:32 AM CDT Chronic sacroiliac joint pain SCAN - RADIOLOGY/IMAGING 05/08/2024 1:49 PM CDT SCAN - RADIOLOGY/IMAGING 05/03/2024 IR FACET BLOCK LUMBAR SACRAL FIRST LEVEL BILATERAL Schedule Routine, Read Routine (OP Routine) 04/25/2024 8:39 AM LIGHTHOUSE KEEPER Lumbar spondylosis Lumbar facet arthropathy URINE CULTURE Routine 04/10/2024 9:40 AM LIGHTHOUSE KEEPER Dysuria POCT URINALYSIS, AUTO W/O SCOPE Routine 04/10/2024 9:34 AM LIGHTHOUSE KEEPER Dysuria DIAGNOSTIC MAMMOGRAM Schedule Routine, Read Routine (OP Routine) 11/05/2023 3:39 PM CDT HEPATITIS PANEL, ACUTE Routine 12/22/2021 11:17 AM CDT Fatigue, unspecified type HM DEXA SCAN Routine 11/13/2020 COLONOSCOPY 03/25/2020 1:48 PM LIGHTHOUSE KEEPER from Last 3 Months or Most Recently Relevant to Health Maintenance Results * DC ARTHROCENTESIS ASPIR&/INJ MAJOR JT/BURSA W/US (05/22/2024 1:00 PM CDT) Narrative Mario Aj MD - 05/22/2024 1:00 PM CDT Mario Aj MD 05/22/2024 1:29 PM Large Joint Injection w/ Ultrasound Guidance: bilateral knee Performed by: Mario Aj MD Authorized by: Mario Aj MD Large Joint Injection/Aspiration: Consent Given by: Patient Site marked: the procedure site was marked Timeout: prior to procedure the correct patient, procedure, and site was verified Verbal consent obtained: Yes Supporting Documentation: Indications: Pain Procedure Details: Location: Knee Site: Bilateral knee Prep: patient was prepped and draped in usual sterile fashion Needle Size: 18 G Approach: Superior lateral Ultrasound guided: Yes Ultrasound guidance used for: Pre-procedure marking and real-time guidance Sterile ultrasond techniques: Sterile gel and sterile probe covers were used Medications Right Large Joint Injection: 3 mL lidocaine 10 mg/mL (1 %); 48 mg hylan g-f 20 48 mg/6 mL Medications Left Large Joint Injection: 3 mL lidocaine 10 mg/mL (1 %); 48 mg hylan g-f 20 48 mg/6 mL Patient tolerance: Patient tolerated the procedure well with no immediate complications us Mario Aj MD IN CLINIC/BEDSIDE ORDERA BLES Final Result * POCUS ASP/INJ MAJOR JOINT (05/22/2024 12:57 PM CDT) Narrative [facility] - 05/22/2024 12:57 PM CDT This procedure was performed and interpreted by the provider. Please refer to the provider's procedure/OR operative note for results. us Mario Aj MD POCUS ORDERABLES Final R esult [facility] * FL Fluoro Guided Injection Hip Left (05/19/2024 9:51 AM CDT) Narrative [facility] - 05/19/2024 9:51 AM CDT The images from this study are not interpreted by Radiology. Please refer to the physician's procedure / OR operative note. Nilesh Dos Santos MD IMG FLUOROSCOPY PROCEDURES Final Result [facility] * XR Pelvis 1 or 2 Views (05/16/2024 9:45 AM CDT) Anatomical Region Laterality Modality Body, Pelvis N/A Computed Radiogr aphy 05/16/2024 10:2 0 AM CDT Impressions 05/16/2024 11:44 AM CDT 1. Unchanged moderate left hip osteoarthritis. Dictated by: Buzz Grimm M.D. The radiology attending physician has personally reviewed this study, and had reviewed and/or edited this written report and agrees with it. Electronically signed by: Hamzah Parra D.O. Narrative 05/16/2024 11:44 AM CDT EXAMINATION: XR PELVIS 1 OR 2 VIEWS HISTORY: Left hip pain COMPARISON: Radiographs 02/02/2023. FINDINGS: Unchanged moderate left hip osteoarthritis. Right total hip arthroplasty is noted. Pubic symphyseal arthrosis with chondrocalcinosis. No acute fracture or dislocation. Normal alignment. Vascular calcifications. Procedure Note Hamzah Parra, - 05/16/2024 EXAMINATION: XR PELVIS 1 OR 2 VIEWS HISTORY: Left hip pain COMPARISON: Radiographs 02/02/2023. FINDINGS: Unchanged moderate left hip osteoarthritis. Right total hip arthroplasty is noted. Pubic symphyseal arthrosis with chondrocalcinosis. No acute fracture or dislocation. Normal alignment. Vascular calcifications. IMPRESSION: 1. Unchanged moderate left hip osteoarthritis. Dictated by: Buzz Grimm M.D. The radiology attending physician has personally reviewed this study, and had reviewed and/or edited this written report and agrees with it. Electronically signed by: Hamzah Parra D.O. Nilesh Dos Santos MD IMG XR PROCEDURES Final Re sult * IR Injection SI Joint Left with Guidance (05/12/2024 8:32 AM CDT) Narrative [facility] - 05/12/2024 8:32 AM CDT The images from this study are not interpreted by Radiology. Please refer to the physician's procedure / OR operative note. Nilesh Dos Santos MD IMG IR PROCEDURES Final Re sult Performing Organization Address [facility] de Phone Number [email or web address] * SCAN - RADIOLOGY/IMAGING (05/08/2024 1:49 PM CDT) Anatomical Region Laterality Modality Other Tashia GRAHAM Final Result * SCAN - RADIOLOGY/IMAGING (05/03/2024) Anatomical Region Laterality Modality Other Provider Scanning Final Result * IR Medial Branch Block Lumbar Sacral First Level Bilateral (aka MBB) (04/25/2024 8:39 AM LIGHTHOUSE KEEPER) Narrative [facility] - 04/25/2024 8:39 AM LIGHTHOUSE KEEPER The images from this study are not interpreted by Radiology. Please refer to the physician's procedure / OR operative note. Nilesh Dos Santos MD G IR PROCEDURES Final Re sult Performing Organization Address [facility] de Phone Number [email or web address] * (ABNORMAL) Urine culture Urine, clean voided (04/10/2024 9:40 AM LIGHTHOUSE KEEPER) Urine culture (A) TheoremRony Alba Comment: CULTURE, URINE, ROUTINE Micro Number: [id number] Test Status: Final Specimen Source: Urine, clean catch Specimen Quality: Adequate Result: Greater than 100,000 CFU/mL of Enterococcus species Enterococcus sp. INT TANYA AMPICILLIN S <=2 NITROFURANTOIN S <=16 VANCOMYCIN S 1 S = Susceptible I = Intermediate R = Resistant NS = Not susceptible SDD = Susceptible Dose Dependent * = Not Tested NR = Not Reported NN = See Therapy Comments Urine, clean voided 04/10/2024 9:40 AM LIGHTHOUSE KEEPER 04/11/2024 4:20 AM LIGHTHOUSE KEEPER Anjelica Huntley NP LAB MICROBIOLOGY - GENERAL OR DERABLES Final Result [facility] [address] [place] [address] * (ABNORMAL) POCT UA, AUTO W/O SCOPE (04/10/2024 9:34 AM LIGHTHOUSE KEEPER) Color, Urine, POC Yellow Clarity, ur, POC Cloudy(A) Clear Glucose, ur, POC Negative Negative MG/DL Bilirubin, ur, POC Negative Negative, Small, Moderate, Large Ketones, ur, POC Negative Negative Specific [place], POC 1.015 1.003 - 1.030 Blood, ur, POC Negative Negative pH, ur, POC 7.5 5.0 - 8.0 Protein, ur, POC Negative Negative Urobilinogen, Urine, POC 0.2 mg/dL Leukocytes, ur, POC Small(A) Negative Nitrite, ur, POC Negative Negative Appearance, fld Cloudy(A) Clear Urine 04/10/2024 9:34 AM LIGHTHOUSE KEEPER Anjelica Huntley NP POINT OF CARE TEST ORDERABLES Final Result * Diagnostic Mammogram (11/05/2023 3:39 PM CDT) Anatomical Region Laterality Modality Breast Mammography Historical Provider MD GUO MAMMO PROCEDURES Ca l Result * Hepatitis panel, acute (12/22/2021 11:17 AM CDT) Hep A IgM NON-REACTI VE NON-REACT JUSTICE [facility] Comment: For additional information, please refer to http://education.[employer]/faq/QDO446 (This link is being provided for informational/ educational purposes only.) HepBsAg NON-REACTI VE NON-REACT JUSTICE [facility] Hep B core IgM NON-REACTI VE NON-REACT JUSTICE [facility] Hep C Ab NON-REACTI VE NON-REACT JUSTICE [facility] SIGNAL TO CUT-OFF 0.01 <1.00 [facility] Comment: HCV antibody was non-reactive. There is no laboratory evidence of HCV infection. In most cases, no further action is required. However, if recent HCV exposure is suspected, a test for HCV RNA (test code 87776) is suggested. For additional information please refer to http://education.[employer]/faq/IDJ87z0 (This link is being provided for informational/ educational purposes only.) Blood 12/22/2021 11:1 7 AM CDT 12/22/2021 11:18 AM CDT Tashia GRAHAM LAB MICROBIOLOGY - NERAL ORDERABLES Final Result [facility] [address] [place] [address] * DEXA SCAN (11/13/2020) Historical Provider HEALTH MAINTENANCE Edited Result - Final * COLONOSCOPY (03/25/2020 1:48 PM LIGHTHOUSE KEEPER) Anatomical Region Laterality Modality Other Narrative Procedure Note Joseph Guillaume MD PhD - 03/25/2020 1:48 PM CST ENDOSCOPY LAB Patient Name: Maggi De Leon Procedure Date: 03/25/2020 1:48 PM Date of : 1950 Admit Type: Outpatient Age: 69 Gender: Female Attending MD: Joseph Guillaume MD,PHD Room: [facility] ENDOSCOPY ROOM 03 Note Status: Finalized Procedure: Colonoscopy Indications: Abdominal pain, Change in bowel habits Providers: Joseph Guillaume MD, PHD Referring MD: Self Referral Medicines: Monitored Anesthesia Care Complications: No immediate complications. Estimated Blood Loss: Estimated blood loss: none. Procedure: Pre-Anesthesia Assessment: - Immediately prior to administration ofmedications, the patient was re-assessed for adequacy to receive sedatives. The benefits, risks and alternatives of theprocedure and sedation were discussed and informed consentwas obtained. All questions were answered. Please referto the signed informed consent document in the medical record. The scope was passed under direct vision.The [id number] was introduced through the anuswith the intention of advancing to the ileum. The scopewas advanced to the sigmoid colon before the procedurewas aborted. Medications were given. The scope waspassed under direct vision. The [id number] was introduced through the anus and advanced to the terminal ileum. The colonoscopy was performed with difficulty due to restricted mobility of the colonand a tortuous colon. Successful completion of the procedure was aided by withdrawing the scope and replacing with the pediatric colonoscope. Thepatient tolerated the procedure well. The quality of thebowel preparation was excellent. The quality of the bowel preparation was evaluated using the BBPS (BostonBowel Preparation Scale) with scores of: Right Colon = 3, Transverse Colon = 3 and Left Colon = 3 (entiremucosa seen well with no residual staining, smallfragments of stool or opaque liquid). The total BBPS score equals 9. The bowel preparation used was SUPREP via split dose instruction. Bowel prep was administered using a split dose. Findings: The digital rectal exam findings include decreased sphincter tone. The terminal ileum appeared normal. Scattered small-mouthed diverticula were found in the sigmoidcolon. Hemorrhoids were found during retroflexion. The exam was otherwise without abnormality. Impression: - Decreased sphincter tone found on digital rectal exam. - The examined portion of the ileum was normal. - Diverticulosis in the sigmoid colon. - Hemorrhoids. - The examination was otherwise normal. Recommendation: - High fiber diet with fiber supplement - Treatment for functional pain if symptoms do not improve - Return to GI clinic as previously scheduled. - Contact Information: During normal business hours - [facility] [place] [facility]: [phone]. After hours, evening, nights, weekends and holidays- Please call the hospital fine grade bulldozer operator at and ask for the GI fellow senior compensation consultant. Attending Participation: I personally performed the entire procedure. Electronically signed by Joseph Guillaume MD. Joseph Guillaume MD, PHD 03/25/2020 2:32:06 PM Number of Addenda: 0 Note Initiated On: 03/25/2020 1:48 PM Joseph Guillaume MD PhD ENDOSCOPY PROCEDURES Ca l Result from Last 3 Months or Most Recently Relevant to Health Maintenance Insurance MEDICARE FOR LIFE MEDICARE FOR [place] [address] FOR LIFE MEDICARE Advance Directives For more information, please contact: [phone] * Full Code (Latest Code Status on File) Date Activated Date Inactivated Comments 03/25/2020 11:54 AM 03/25/2020 7:31 PM * Full Code Date Activated Date Inactivated Comments 08/04/2018 10:36 AM 08/04/2018 5:07 PM Care Teams Emergency Department Relationship Specialty Start Date End Date Anjelica Huntley NP [address] [facility] [address] [place] [address] PCP - General Internal Medicine 06/10/22 Buzz Blankenship MD [address] [facility] [address] [place] [address] Consulting Physician Rheumatology 04/14/21
--- OUTSIDE RECORDS SUMMARY | 2024-05-25 10:47 | XMS_ITS | Continuity of Care Document ---
Author Name [facility] Organization [facility] Care Team Providers Care Housekeeping Manager Name Role Phone [facility] Unavailable Unavailable Medications Combined list of outpatient medications from [facility] Defense and [facility] Affairs facilities.Medications provided include 1) outpatient medications from the last 15 months, and 2) patient-reported medications. Medication Details Route Status Patient Instructions Prescription Expires Prescription Number Last Dispense Date Ordering Provider Order Date Order Qty Source betamethaso ne valerate 0.1% cream [45g] See Instruct ions, # 135 g, 4 total refill(s ), Hard Stop Discont inued 03/31/2023 4 2023 135.0 Ambulat ory Pharmac y Brilinta 90 mg tablet See Instruct ions, # 60 EA, 11 total refill(s ), Hard Stop Discont inued 06/01/2023 4 2023 60.0 Ambulat ory Pharmac y clopidogrel 75 mg tablet See Instruct ions, # 30 EA, 11 total refill(s ), Hard Stop Discont inued 09/29/2023 4 2023 30.0 Ambulat ory Pharmac y FLUoxetine 20 mg capsule See Instruct ions, # 90 EA, 3 total refill(s ), Hard Stop Discont inued 11/17/2023 4 2023 90.0 Ambulat ory Pharmac y FLUoxetine 40 mg capsule See Instruct ions, # 90 EA, 3 total refill(s ), Hard Stop Ordered 10/20/2024 4 2023 90.0 Ambulat ory Pharmac y nystatin-tr iamcinolone 100,000 units/g-0.1 % cream [30g] See dose instruct ions in comments , # 30 g, 1 total refill(s ), Acute Complet ed 05/28/2023 3 2023 30.0 Ambulat ory Pharmac y Allergies, Adverse Reactions, Alerts Combined list of allergies from Department of Defense and Veterans Affairs facilities. It does not include entries that were removed or entered in error. Substance Category Reaction Severity Reaction type Status Date Reported Comments Source hydroCHLOROt hiazide Propensity to adverse reactions to drug Hypokalemia Active 3 Unknown Organiza tion HYDROcodone Propensity to adverse reactions to drug Nausea and Vomiting Active 2 Unknown Organiza tion penicillin V pota ium Propensity to adverse reactions to drug Angioedema of eyelids Active 4 Unknown Organiza tion pravastatin Propensity to adverse reactions to drug Dizziness Active 3 Unknown Organiza tion traMADol Propensity to adverse reactions to drug Unknown Active 6 Unknown Organiza tion Immunizations Combined list of available immunizations from the Department of Defense and Veterans Affairs facilities. Immunization Series Date Given Administered By Site Reaction Lot Number CVX Code Drug House Admin Status Comments Source tuberculin purified protein derivative 2010 [id number] sanofi pasteur complet ed tuberculi n purified protein derivativ e 03/24/10 Given Ambulat ory Pharmac y tetanus, diphtheria, acellular pertu is 2009 zzLef t Arm [id number] sanofi pasteur complet ed tetanus, diphtheri a, acellular pertussis 09/18/09 Given Ambulat ory Pharmac y Procedures Combined list of: 1) Procedures from Department of Veterans Affairs facilities going back up to thelast 18 months, not all [place] non-surgical procedures are included; 2) All procedures from the Department of [facility] facilities. Procedure Procedure Type Code Date Perfomer Comments Sourc e No data available for this section Ambulatory P harmacy Assessment and Plan Combined list of future care activities from Department of Defense and Veterans Affairs facilities (e.g., assessment and plan notes, appointments, orders, and referrals). Additional future care activities may be listed in the Plan of Care section. Result Assessment and Plan Date Source Assessment and Plan No data available for this section 05/25/2024 Ambulatory Pharmacy Functional Status Combined list of recent functional and cognitive assessments recorded at [facility] ([place] Functional [place] Measurement (FIM) Scale: 1 = Total Assistance (Subject = 0% +), 2 = Maximal Assistance (Subject = 25% +), 3 = Moderate Assistance (Subject = 50% +), 4 = Minimal Assistance (Subject = 75% +), 5 = Supervision, 6 = Modified [place] (Device), 7 = Complete [place] (Timely, Safely). Assessment Date/Time Source Assessment Type Assessment Skill Assessment Score Assessment Details No data available for this section
--- OUTSIDE RECORDS SUMMARY | 2024-05-25 10:47 | XMS_ITS | Encounter Summary ---
Author Organization [facility] Address [address] [place] [address] Phone Care Team Providers Care Cost Control Specialist Name Role Phone Buzz Blankenship MD Unavailable [phone] Anjelica Huntley NP Primary Care Provider [phone] Encounter Details Date Type Department Care Team (Late st Contact Info) Description 05/16/2024 Results Follow-Up [facility] Orthopaedic Surgery [address] [facility] [address] [place] [address] Nilesh Dos Santos MD [address] [facility] [address] [place] [address] Social History Tobacco Use Types Packs/Day Years Used Date Smoking Tobacco: Never Smokeless Tobacco: Never Alcohol Use Standard Drinks/Week Comments No 0 [...] on file 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 Based on evaluation today with ongoing pain, I recommend a left hip injection under fluoroscopy guidance with steroid and anesthetic like we have done for the sacroiliac joint. Please update with any change in symptoms, and please share thoughts/questions regarding these results, recommendation for injection. Left intra-articular hip injection under fluoroscopy guidance, steroid and anesthetic. documented in this encounter Plan of Treatment Not on file documented as of this encounter Visit Diagnoses Not on filedocumented in this encounter Care Teams Cost Control Specialist Relationship Specialty Start Date End Date Anjelica Huntley NP [address] [place] [address] PCP - General Internal Medicine 06/10/22 Buzz Blankenship MD [address] [place] [address] Consulting Physician Rheumatology 04/14/21 documented as of this encounter
--- OUTSIDE RECORDS SUMMARY | 2024-05-25 10:47 | XMS_ITS | Clinical Summary ---
Author Organization [facility] Address [address] [place] [address] Care Team Providers Care Manager Welding Name Role Phone Buzz Blankenship MD Unavailable [phone] Anjelica Huntley NP Primary Care Provider [phone] Allergies Active Allergy Reactions Criticality Noted Date [...] (two) times a day 1 each 1 04/10/192024 Discontinued(O ther) Hospital, Clinic, or Other Facility [...] Dysuria 03/16/2023 Coronary artery disease invo lving [place] coronary artery of [place] heart without angina pectoris 03/09/2023 History of [...] 05/20/2022 Assessment & Plan (12/29/2022 11:49 AM PACS ADMINISTRATOR): Resolved with kenalog IM. Will defer restarting humira as it may have been induced by TNFi. Fhx of daughter with psoriasis but patient denies personal hx. Will monitor for any recurrence. She usually sees star Rodríguez. Assessment & Plan (06/17/2022 11:06 AM CDT): Resolved with kenalog IM. Will defer restarting humira as it may have been induced by TNFi. Fhx of daughter with psoriasis but patient denies personal hx. Will monitor for any recurrence. She usually sees star Rodríguez. Assessment & Plan (05/20/2022 2:51 PM [...] 03/24/2022 Assessment & Plan (03/24/2022 10:44 AM PACS ADMINISTRATOR): Likely worsened by MTX which was stopped 01/2022. Recommend folic acid up to 3mg daily and biotin. Encouraged to discuss with her breaker tender as well. Primary insomnia 03/13/2022 Assessment & Plan (09/29/2023 9:19 AM CDT): This is a significant, separately identifiable problem that was evaluated and managed on the same day as the wellness exam Dyspnea on exertion 02/04/2022 Overview (02/04/2022): Patient O2 sat is 98%. She does complain of slight chest pressure and shortness of breath. Patient referred to the emergency department for further evaluation skilled nursing current use of therapeutic drug 2021 Overview (12/25/2021): TSPOT negative: 11/2021 Hepatitis panel negative: 11/2021 Assessment & Plan (10/19/2023 8:42 AM CDT): Hepatitis panel negative: 11/2021 TSPOT negative: 11/2021 Assessment & Plan (09/21/2023 11:22 AM CDT): Hepatitis panel negative: 11/2021 TSPOT negative: 11/2021 Assessment & Plan (01/25/2023 9:31 AM PACS ADMINISTRATOR): Hepatitis panel negative; 11/2021 TSPOT negative: 11/2021 Assessment & Plan (12/29/2022 11:51 AM PACS ADMINISTRATOR): Hepatitis panel negative; 11/2021 TSPOT negative: 11/2021 [...] 11/2021 Assessment & Plan (03/24/2022 10:42 AM PACS ADMINISTRATOR): Hepatitis panel negative; 11/2021 TSPOT negative: 11/2021 Assessment & Plan (01/20/2022 10:27 AM PACS ADMINISTRATOR): Hepatitis panel negative; 11/2021 TSPOT negative: 11/2021 [...] and Naprosyn. Medrol Dosepaks are not a penitentiary solution. As long as her kidney function [...] therapy at the pain management Center at [facility] Assessment & Plan (06/04/2021 12:51 PM CDT): [...] limited. Assessment & Plan (01/25/2023 9:32 AM PACS ADMINISTRATOR): Previously diagnosed by PCP. C/o diffuse generalized pain. S/e to gabapentin and lyrica so will defer restarting. Recently restarted venlafaxine per PCP for anxiety. Remains on fluoxetine but was increased to 60mg daily per psych. Additional medication options are limited. Assessment & Plan (12/29/2022 11:50 AM PACS ADMINISTRATOR): Previously diagnosed by PCP. C/o diffuse generalized [...] PCP. Assessment & Plan (03/24/2022 10:42 AM PACS ADMINISTRATOR): Previously diagnosed by PCP. C/o diffuse generalized pain. S/e to gabapentin and lyrica so will defer restarting. Currently on venlafaxine and fluoxetine per PCP. Assessment & Plan (01/20/2022 10:27 AM PACS ADMINISTRATOR): Previously diagnosed by PCP. C/o diffuse generalized [...] dizziness. Assessment & Plan (02/17/2021 8:28 PM PACS ADMINISTRATOR): Add gabapentin at hs. Discussed increasing to 100mg bid over the coming week pending symptom improvement. Tremor 01/27/2021 Assessment & Plan (01/27/2021 9:30 AM PACS ADMINISTRATOR): Advised ct of head, eeg, referral to neurology Advised labs today - will notify her of results as they are available Syncope 01/27/2021 Assessment & Plan (02/17/2021 8:26 PM PACS ADMINISTRATOR): Has appt pending for cv that she will keep She will continue to not drive Assessment & Plan (01/27/2021 9:30 AM PACS ADMINISTRATOR): Advised no driving, climbing, or swimming Advised ct of head, eeg, referral to neurology Advised labs today - will notify her of results as they are available Plantar fasciitis, bilateral 11/04/2020 Assessment & Plan (11/04/2020 2:16 PM CDT): Will continue with care per assistant principal Thrombophlebitis of superfic ial veins of right [...] 10/08/2020 Assessment & Plan (12/30/2020 8:38 PM PACS ADMINISTRATOR): Decrease maxzide due to hyponatremia Repeat bmp in the next week Assessment & Plan (10/08/2020 6:08 PM CDT): Continue with care per ent We discussed as she has a current rx for valium that we cannot provide her with another at the current time. We discussed that if her ent discontinues writing it for her that pending review of [place] patient safety sitter we can further discuss a prescription. Paradoxical vocal fold motion disorder Assessment & Plan (09/12/2020 11:02 AM CDT): I have recommended laryngeal control therapy here at the [facility] in order to [...] time Assessment & Plan (02/17/2021 8:25 PM PACS ADMINISTRATOR): Stable, continue meds same at this time Assessment & Plan (12/30/2020 8:40 PM PACS ADMINISTRATOR): Decrease prozac to 30mg daily Assessment & [...] needed. Assessment & Plan (12/30/2020 8:39 PM PACS ADMINISTRATOR): Continue with care per GI Due to [...] hematology. Assessment & Plan (12/30/2020 8:40 PM PACS ADMINISTRATOR): Has appt pending with heme/onc that she [...] this time. Will continue to follow-up with assistant principal as planned. Anxiety 04/18/2020 Assessment & Plan (07/10/2022 6:53 PM CDT): As the patient's pain causes depression and depression worsens pain, she may benefit from speaking to a pain psychologist like 1 at the pain center at [facility]. Assessment & Plan (10/13/2021 12:47 PM CDT): Discontinue with xanax. Will restart valium bid/prn anxiety or dizziness. Assessment & Plan (06/04/2021 12:49 PM CDT): Will add a prn xanax as she has discontinued valium. Assessment & Plan (02/17/2021 8:28 PM PACS ADMINISTRATOR): Resume prn valium, advised not taking more than 10mg daily. Advised potential for addictiveness with valium and additionally for sedation as a side effect. She was advised caution on driving after taking due to sedation potential. Assessment & Plan (04/18/2020 10:23 AM PACS ADMINISTRATOR): Continue medication same at this time Rib pain on left side 04/18/2020 Assessment & Plan (04/18/2020 10:23 AM PACS ADMINISTRATOR): We reviewed ct chest, abdominal us. She will continue to exercise 4x/week for 30min each session. Gastric polyp 04/18/2020 Assessment & Plan (04/18/2020 10:23 AM PACS ADMINISTRATOR): Continue with care per gi Lipoma of torso 04/18/2020 Assessment & Plan (04/18/2020 10:23 AM PACS ADMINISTRATOR): Will refer to gen surg to discuss further evaluation and treatment Abdominal pain 03/14/2020 Overview (03/14/2020): Added automatically from request for surgery [id number] Assessment & Plan (07/10/2022 6:50 PM CDT): [...] order and advised to take this to [facility] today. Change in bowel habits 03/14/2020 Overview (03/14/2020): Added automatically from request for surgery [id number] Assessment & Plan (04/02/2023 7:35 PM PACS ADMINISTRATOR): The patient was recently treated with a number of antibiotics and Cosentyx. Even though Cosentyx was discontinued in January, there is an association with triggering a inflammatory bowel disease type condition. We would like to check stool studies including calprotectin to evaluate an infection or inflammatory cause of her symptoms. Hoarseness of voice 02/19/2020 Assessment & Plan (03/20/2020 11:27 AM PACS ADMINISTRATOR): resolved Assessment & Plan (02/19/2020 12:54 PM PACS ADMINISTRATOR): Will send for covid test today. Will notify her of results as available. Advised her in the interim to report to er if worsening. Will start on proventil hfa and change aciphex to dexilant. Positive depression screening 11/14/2019 Assessment & Plan (03/20/2020 11:26 AM PACS ADMINISTRATOR): Continue with prozac. Will add buspar bid, discussed increasing pending response. Breast cyst, right 11/14/2019 Assessment & Plan (04/18/2020 10:22 AM PACS ADMINISTRATOR): Due for repeat imaging in the next [...] change. Varicose veins of both lower extremities 020 Assessment & Plan (11/14/2019 9:48 AM CDT): [...] 10/16/2019 Assessment & Plan (02/17/2021 8:27 PM PACS ADMINISTRATOR): Encouraged heart healthy diet and exercise Assessment & Plan (05/10/2020 8:33 AM CDT): Obesity is unchanged. Discussed the patient's BMI. The BMI is above average. BMI management plan is completed. BMI Follow-up includes: nutrition counseling, exercise counseling and education provided. Assessment & Plan (04/18/2020 7:47 AM PACS ADMINISTRATOR): Obesity is unchanged. Discussed the patient's BMI. [...] 10/16/2019 Assessment & Plan (04/18/2020 10:22 AM PACS ADMINISTRATOR): Advised high fiber heart healthy diet Assessment & Plan (10/16/2019 10:35 AM CDT): will continue with high fiber diet, decreased nuts/seeds followed by route contractor History of right hip replacement 10/16/2019 H/O [...] available Assessment & Plan (03/24/2019 4:07 PM PACS ADMINISTRATOR): Controlled Statin myopathy 02/28/2018 Pure hypercholesterolemia 06/21/2017 [...] PPI Assessment & Plan (04/18/2020 10:21 AM PACS ADMINISTRATOR): We reviewed egd biopsy results. Will continue with care per gi. Assessment & Plan (03/20/2020 11:27 AM PACS ADMINISTRATOR): Continue with care and testing per GI. Assessment & Plan (02/19/2020 12:54 PM PACS ADMINISTRATOR): Will send for covid test today. Will [...] stimulator. Assessment & Plan (03/24/2022 10:43 AM PACS ADMINISTRATOR): XR L-spine and MRI L-spine revealed multilevel [...] Plan (10/16/2019 10:34 AM CDT): Managed by breaker tender via [facility] Osteoarthritis of hip 03/13/2015 Resolved Problems Problem Noted Date Diagnosed Date Resolved Date Class 1 obesity due to exces s calories with serious comorbidity and body mass index (BMI) of 31.0 to 31.9 in adult 01/27/2023 08/23/2023 Obesity (BMI 30-39.9) 03/13/20222023 Assessment & Plan (12/14/2022 9:18 AM CDT): Discussed the patients BMI: The BMI is above average BMI management is complete. BMI follow-up includes: Nutrition Counseling and education provided Assessment & Plan (03/13/2022 8:16 AM PACS ADMINISTRATOR): Obesity is unchanged. Discussed the patient's BMI. [...] provided Assessment & Plan (03/13/2022 8:16 AM PACS ADMINISTRATOR): Obesity is unchanged. Discussed the patient's BMI. The BMI is above average. BMI management plan is completed. BMI Follow-up includes: nutrition counseling, exercise counseling and education provided. Rheumatoid arthritis involvi ng multiple sites with positive rheumatoid factor 03/13/2022 05/21/19 Obesity (BMI 30-39.9) 01/28/20222022 Assessment & Plan (01/28/2022 8:30 AM PACS ADMINISTRATOR): Obesity is unchanged. Discussed the patient's BMI. The BMI is above average. BMI management plan is completed. BMI Follow-up includes: nutrition counseling, exercise counseling and education provided. BMI 30.0-30.9,adult 01/28/2022 03/13/19 23 Assessment & Plan (01/28/2022 8:30 AM PACS ADMINISTRATOR): Obesity is unchanged. Discussed the patient's BMI. [...] Depression 05/08/2021 08/20/2021 Psoriatic arthritis 04/14/2021 05/04/19 25 Overview (10/12/2023): 09/21/23: B12 1227, CMP nl, [...] and joint pain after starting Plavix following VT s/p stent. Due to increased generalized pain [...] needed. Assessment & Plan (01/25/2023 9:31 AM PACS ADMINISTRATOR): Previously isloated APRIL 1:160 on AVISE with [...] needed Assessment & Plan (12/29/2022 11:49 AM PACS ADMINISTRATOR): Previously isloated APRIL 1:160 on AVISE with [...] needed. Assessment & Plan (03/24/2022 10:41 AM PACS ADMINISTRATOR): Previously isloated APRIL 1:160 on AVISE with [...] psoriatic arthritis. Will continue humira 40mg SQ [id number]. Recent labs reviewed. Follow up in 4 months. Sooner if needed. Assessment & Plan (01/20/2022 10:29 AM PACS ADMINISTRATOR): Previously isloated APRIL 1:160 on AVISE with [...] a spondyloarthropathy. Will continue humira 40mg SQ [id number] and give this more time to take [...] starting. Will start approval of Humira 40mg [id number]. Patient advised of the side effects of [...] Blankenship. Assessment & Plan (04/29/2021 5:04 PM PACS ADMINISTRATOR): US right hand/wrist (04/21/21): Small grade 1 [...] Blankenship. Assessment & Plan (04/14/2021 5:31 PM PACS ADMINISTRATOR): 70-year-old female with PMHx of FM, gout, [...] 08/20/2021 Assessment & Plan (01/27/2021 9:30 AM PACS ADMINISTRATOR): Advised ct of head, referral to neurology Advised labs today - will notify her of results as they are available Acute cystitis without hematuria 12/17/2020 06/12/2021 Assessment & Plan (12/30/2020 8:40 PM PACS ADMINISTRATOR): resolved Assessment & Plan (12/17/2020 11:07 AM [...] 22 Assessment & Plan (12/30/2020 8:38 PM PACS ADMINISTRATOR): Obesity is unchanged. Discussed the patient's BMI. [...] 11/04/2020 Assessment & Plan (04/18/2020 10:22 AM PACS ADMINISTRATOR): Resolved. We reviewed recent labs. Continue medication same at this time. LUQ abdominal pain 03/20/2020 2 Assessment & Plan (11/04/2020 2:15 PM CDT): [...] planned Assessment & Plan (03/20/2020 11:26 AM PACS ADMINISTRATOR): Continue with care and testing per GI. Retrieve CT from [facility]. Will evaluate further with abdominal US and labs. Hypokalemia 03/20/2020 11/04/2020 Assessment & Plan (08/29/2020 12:31 PM CDT): Seen on labs at [facility]. Repeat potassium level this week Assessment & Plan (04/18/2020 10:22 AM PACS ADMINISTRATOR): Resolved. We reviewed recent labs. Continue medication same at this time. Assessment & Plan (03/20/2020 11:27 AM PACS ADMINISTRATOR): Will reevaluate on labs. Discussed likely resolved as she has stopped the diazide. Cough 02/19/2020 08/20/2021 Assessment & Plan (03/20/2020 11:27 AM PACS ADMINISTRATOR): resolved Assessment & Plan (02/19/2020 12:54 PM PACS ADMINISTRATOR): Will send for covid test today. Will [...] constipation. Assessment & Plan (03/24/2019 4:08 PM PACS ADMINISTRATOR): Improved with diet modification and as neededlaxatives Gastroesophageal reflux dise ase with esophagitis 07/26/2018 05/08/2021 Overview (07/26/2018): Added automatically from request for surgery [id number] Assessment & Plan (11/09/2019 7:29 PM CDT): Unfortunately Dexilant remains a plan exclusion. She can try and get this through [facility]. Alternatively we could offer her Carafate in conjunction with AcipHex. Assessment & Plan (10/16/2019 10:34 AM CDT): Managed by gastroenterology Assessment & Plan (03/24/2019 4:07 PM PACS ADMINISTRATOR): Patient's symptoms her currently manageable with every [...] Pain of right lower extremity 08/14/2015 10/16/2019 Encounters Date Type Department Care Team Description 05/22/2024 1:00 PM CDT Ancillary Procedure [facility] [address]st [address] [place] [address] Arrived 05/22/2024 1:00 PM CDT Procedure visit [facility] [address] 1st [address] [place] [address] Mario Aj MD Primary osteoarthritis of both knees 05/19/2024 8:46 AM CDT - 05/19/2024 11:59 PM CDT Hospital Encounter [facility] [address] [facility] [facility] [address] [place] [address] Nilesh Dos Santos MD Primary osteoarthritis of left hip; Left hip pain Discharge Disposition: Discharge to home or self care 05/17/2024 Telephone Radiology - [address] [facility] [place] [address] Radha Fox RT 05/17/2024 Orders Only [facility] [address] 2nd [address] [place] [address] Nilesh Dos Santos MD Primary osteoarthritis of left hip (Primary Dx); Left hip pain 05/16/2024 9:40 AM CDT - 05/16/2024 11:59 PM CDT Hospital Encounter [facility] [address] [place] [address] Left hip pain Discharge Disposition: Discharge to home or self care 05/16/2024 8:45 AM CDT Office Visit [facility] [address] [facility] 2nd Floor [address] [place] [address] Nilesh Dos Santos MD Left hip pain (Primary Dx); Primary osteoarthritis of left hip; Chronic sacroiliac joint pain; Lumbar facet joint pain; Lumbar spondylosis; Primary osteoarthritis involving multiple joints 05/16/2024 Results Follow-Up [facility] [address] [place] [address] 2nd [address] [place] [address] Nilesh Dos Santos MD 05/12/2024 7:31 AM CDT - 05/12/2024 11:59 PM CDT Hospital Encounter [facility] [address] [facility] [place] [address] Nilesh Dos Santos MD Chronic sacroiliac joint pain Discharge Disposition: Discharge to home or self care 05/11/2024 12:55 PM CDT - 05/11/2024 11:59 PM CDT Hospital Encounter [address] [phone] Localized primary osteoarthritis of carpometacarpal (CMC) joint of right wrist Discharge Disposition: Discharge to home or self care 05/11/2024 Orders Only [facility] [address] [place] [phone] Buzz Blankenship MD 05/09/2024 Telephone Radiology - [address] [place] [address] Radha Fox RT 05/08/2024 Results Follow-Up [facility] [address] [place] [phone] Tashia Kirk PA 05/08/2024 Orders Only [facility] [address] [place] [phone] Tashia Kirk PA 05/05/2024 10:00 AM CDT Office Visit [facility] [place] [address] [place] [address] [address] [place] [address] Anjelica Huntley NP Weight gain (Primary Dx); BMI 29.0-29.9,adult; Primary insomnia 05/03/2024 9:15 AM CDT Office Visit [facility] [address] [place] [phone] Tashia Kirk PA Polyarthralgia (Primary Dx); Fibromyalgia; Pain of right hand; Localized primary osteoarthritis of carpometacarpal (CMC) joint of right wrist 05/03/2024 Orders Only [facility] Information Management [address] [place] [address] Scanning, Provider 05/02/2024 Orders Only [facility] [address] [place] [address] 2nd Floor [address] [place] [address] Nilesh Dos Santos MD Chronic sacroiliac joint pain (Primary Dx) 04/27/2024 Telephone [facility] [address] [facility] [facility] Medical Office Building [address] [place] [address] Francine Isaac LPN 04/26/2024 Telephone [facility] [address] 1st Floor [address] [place] [address] Mario Aj MD 04/25/2024 7:57 AM PACS ADMINISTRATOR - 04/25/2024 11:59 PM PACS ADMINISTRATOR Hospital Encounter [facility] [address] [place] [id number] Gerald [place] MD Lumbar spondylosis (Primary Dx); Lumbar facet arthropathy Discharge Disposition: Discharge to home or self care 04/19/2024 Telephone [facility] [address] [place] [address] 2nd Floor [address] [place] [address] Justine Peraza, FERMÍN 04/13/2024 Results Follow-Up [facility] Internal Medicine at [address] [place] [address] Anjelica Huntley, MARTA 04/10/2024 9:00 AM PACS ADMINISTRATOR Office Visit [facility] [place] [address] [place] [address] Rd [address] [place] [address] Anjelica Huntley, MARTA Dysuria (Primary Dx); BMI 28.0-28.9,adult; Left sided sciatica; Moderate persistent asthma without complication 03/31/2024 Telephone [facility] Medicine [address] [place] [address] Road [address] [place] [address] Anjelica Huntley, SAFETY ADMIN ASSISTANT 03/27/2024 Telephone [facility] [address] [place] [address] Road [address] [place] [address] Anjelica Huntley, SAFETY ADMIN ASSISTANT 03/24/2024 Telephone [facility] [address] [place] [address] [address] [place] [address] Nilesh Dos Santos MD 03/21/2024 Orders Only [facility] [address] [place] [address] [address] [place] [address] Nilesh Dos Santos MD Lumbar spondylosis; Lumbar facet arthropathy 03/10/2024 Telephone [facility] [address] [place] [address] [address] [place] [address] Francine Isaac LPN 03/09/2024 Orders Only [facility] [address] [place] [address] 1st Floor [address] [place] [address] Mario Aj MD Primary osteoarthritis of both knees (Primary Dx) 03/06/2024 Telephone [facility] [address] [place] [address] 1st [address] [place] [address] Mario Aj MD 03/02/2024 Orders Only [facility] [address] [facility] Office [address] [place] [phone] Nilesh Dos Santos MD 02/28/2024 Telephone [facility] [address] [facility] [address] [place] [address] Nilesh Dos Santos MD from Last 3 Months Immunizations Immunization Administration Dates Next Due Influenza, [...] Tdap 06/06/2021,08/02/2015,09/18/2009 ZOSTER Recombinant 03/16/2023(Deferred: Patient Refused) Surgical History Surgery Date Site/Laterality Comments SECTION x3 HYSTERECTOMY CHOLECYSTECTOMY OOPHORECTOMY IR INJECTION ARTHROGRAM SI J OINT BILATERAL WITH GUIDANCE 07/29/2017 Bilateral FL UPPER GI AIR CONTRAST W KUB 08/19/2017 Bilateral IR INJECTION ARTHROGRAM SI J OINT BILATERAL WITH GUIDANCE 12/06/2017 Bilateral IR INJECTION ARTHROGRAM SI J OINT BILATERAL WITH GUIDANCE 03/31/2018 Bilateral IR INJECTION ARTHROGRAM SI J OINT BILATERAL WITH GUIDANCE 04/25/2018 Bilateral FACET BLOCK LUMBAR SACRAL 1 LEVEL LEFT 06/08/2018 Bi lateral TOTAL HIP ARTHROPLASTY 02/22/2015 - 02/22/2016 Right IR INJECTION ARTHROGRAM SI J OINT BILATERAL WITH GUIDANCE 09/28/2018 Bilateral FACET BLOCK LUMBAR SACRAL 1 LEVEL LEFT 10/26/2018 Bi lateral FACET BLOCK LUMBAR SACRAL 1 LEVEL LEFT 02/17/2019 Bi lateral IR INJECTION ARTHROGRAM SI J OINT BILATERAL WITH GUIDANCE 03/15/2019 Bilateral IR INJECTION ARTHROGRAM SI J OINT BILATERAL WITH GUIDANCE 07/13/2019 Bilateral FACET BLOCK LUMBAR SACRAL 1 LEVEL LEFT 07/24/2019 Bi lateral IR INJECTION ARTHROGRAM SI J OINT BILATERAL WITH GUIDANCE 10/11/2019 Bilateral FACET BLOCK LUMBAR SACRAL 1 LEVEL LEFT 2019 Bi lateral IR INJECTION ARTHROGRAM SI J OINT BILATERAL WITH GUIDANCE 01/17/2020 Bilateral FACET BLOCK LUMBAR SACRAL 1 LEVEL LEFT 03/13/2020 Bi lateral IR INJECTION ARTHROGRAM SI J OINT BILATERAL WITH GUIDANCE 06/04/2020 Bilateral FACET BLOCK LUMBAR SACRAL 1 LEVEL LEFT 06/25/2020 Bi lateral IR INJECTION ARTHROGRAM SI J OINT BILATERAL WITH GUIDANCE 09/04/2020 Bilateral FACET BLOCK LUMBAR SACRAL 1 LEVEL LEFT 09/18/2020 Bi lateral IR INJECTION ARTHROGRAM SI J OINT BILATERAL WITH GUIDANCE 12/05/2020 Bilateral IR INJECTION KNEE RIGHT FACET BLOCK LUMBAR SACRAL 1 LEVEL LEFT 03/06/2021 Bi lateral IR INJECTION ARTHROGRAM SI J OINT BILATERAL WITH GUIDANCE 03/07/2021 Bilateral FACET BLOCK LUMBAR SACRAL 1 LEVEL LEFT 03/20/2021 Bi lateral ABDOMINOPLASTY COLONOSCOPY CATARACT EXTRACTION W/ INTRA OCULAR LENS IMPLANT Bilateral IR INJECTION ARTHROGRAM SI J OINT BILATERAL WITH GUIDANCE 06/06/2021 Bilateral IR INJECTION ARTHROGRAM SI J OINT BILATERAL WITH GUIDANCE 08/13/2021 Bilateral IR INJECTION ARTHROGRAM SI J OINT BILATERAL WITH GUIDANCE 12/23/2021 Bilateral JOINT REPLACEMENT Right hip FACET BLOCK LUMBAR SACRAL 1 LEVEL LEFT 06/15/2022 Bi lateral IR INJECTION ARTHROGRAM SI J OINT BILATERAL WITH GUIDANCE 08/05/2022 Bilateral FL UPPER GI AIR CONTRAST W KUB 10/02/2022 Left IR INJECTION ARTHROGRAM SI J OINT BILATERAL WITH GUIDANCE 11/20/2022 Bilateral FL UPPER GI AIR CONTRAST W KUB 01/06/2023 Left IR INJECTION ARTHROGRAM SI J OINT BILATERAL WITH GUIDANCE 03/05/2023 Bilateral PERCUTANEOUS TRANSLUMINAL CO RONARY ANGIOPLASTY 02/20/2023 FACET BLOCK LUMBAR SACRAL 1 LEVEL LEFT 03/10/2023 Bi lateral IR INJECTION ARTHROGRAM SI J OINT LEFT INCLUDES IMAGING GUIDANCE 05/26/2023 Left FACET BLOCK LUMBAR SACRAL 1 LEVEL LEFT 07/02/2023 Bi lateral IR INJECTION ARTHROGRAM SI J OINT LEFT INCLUDES IMAGING GUIDANCE 10/12/2023 Left FACET BLOCK LUMBAR SACRAL 1 LEVEL LEFT 11/03/2023 Bi lateral IR INJECTION ARTHROGRAM SI J OINT LEFT INCLUDES IMAGING GUIDANCE 02/18/2024 Left FACET BLOCK LUMBAR SACRAL 1 LEVEL LEFT 04/25/2024 Bi lateral IR INJECTION ARTHROGRAM SI J OINT LEFT INCLUDES IMAGING GUIDANCE 05/12/2024 Left FL FLUORO GUIDED INJECTION HIP LEFT 05/19/2024 Left Medical History Medical History Date Comments Hyperlipidemia well controlled with diet Arthritis GERD (gastroesophageal reflux disease) well controlled with meds Benign fundic gland polyps of stomach Meniere disease valium helps didi etimes History of left breast biopsy 05/05/2017 be nign Colitis 02/26/2020 Hopital adm Anxiety and depression Elevated platelet count Vitamin D deficiency well contro lled with meds HTN (hypertension) well controll ed with meds Palpitations Fibromyalgia possibly-to see [employer] PFO (patent foramen ovale) Low back pain Fibromyalgia Osteoarthritis Osteoporosis 2020 Cataract CAD (coronary artery disease) 02/20/2023 NSTEMI (non-ST elevated myoc ardial infarction) ([facility]) 02/20/2023 Family History Medical History Relation Name Comments Diabetes Brother 1 Edwardo sanchez Heart attack Brother 1 Edwardo sanchez Kidney disease Brother 1 Edwardo sanchez Family his tory of kidney disease - (Added by TW Conv) Diabetes Brother 2 Parth Family history of diabetes mellitus - (Added by TW Conv) Alcohol abuse Father Todd Family history of alcoholism - (Added by TW Conv) Diabetes Father Todd Family history of diabetes mellitus - (Added by TW Conv) Kidney disease Father Todd Family histor y of kidney disease - (Added by TW Conv) Cancer Maternal Grandmother Valpancho villalobos Alcohol abuse Mother Poppy Family history of alcoholism - (Added by TW Conv) Arthritis Mother Poppy Family history of arthritis - (Added by TW Conv) Depression Mother Poppy Diabetes Mother Poppy Family history of diabetes mellitus - (Added by TW Conv) Heart attack Mother Poppy Hypertension Mother Poppy Family history of hypertension - (Added by TW Conv) Kidney disease Mother Poppy Family histor y of kidney disease - (Added by TW Conv) Mental illness Mother Opppy Stroke Mother Poppy Family history of cerebrovascular accident (CVA) - (Added by TW Conv) Pancreatic cancer Mother's Sister Relation Name Status Comments Brother 1 Edwardo sanchez Brother 2 Parth Alive Father Todd Maternal Grandfather Maternal Grandmother Luiz villalobos Mother Poppy Mother's Sister Paternal Grandfather Paternal Grandmother Sister 1 Evie Alive Sister 2 Esper Alive Social History Tobacco Use Types Packs/Day Years [...] on file Legal Sex Female 5:33 AM PACS ADMINISTRATOR Gender Identity Not on file Sexual Orientation Not on file Occupation Industry Job Start Date Job End Date Retired Not on file Not on file Not on file Obstetrics History Last Filed Vital Signs Vital Sign Reading Time Taken Comments Blood Pressure 124/82 05/05/2024 9:49 AM CDT Pulse 93 05/05/2024 9:49 AM CDT Temperature 37.2 C (99 F) 05/05/2024 9:49 AM CDT Respiratory Rate 20 04/25/2024 8:41 AM PACS ADMINISTRATOR Oxygen Saturation 96% 05/05/2024 9:49 AM CDT Inhaled Oxygen Concentration - - Weight 64.9 kg (143 lb) 05/05/2024 9:49 AM CDT Height 147.3 cm (4' 10 ) 05/05/2024 9:49 AM CDT Body Mass Index 29.89 05/05/2024 9:49 AM CDT Plan of Treatment Health Maintenance Due Date Last Done Comments Hepatitis B Screening 11/09/1969 Zoster Vaccine (1 of 2) 11/09/2001 Osteoporosis Screening-Bone Density Scan 11/13/2022 11/13/2020, 11/13/2020, 11/13/2020 Well Visit 65+ 09/28/2024 09/29/2023, 09/23, 11/04/2020 Influenza Vaccine (Season Ended) 2024 Breast Cancer Screening-Mammogram 11/04/2024 11/05/2023, 11/05/2023, 06/24/2021, Additional history exists Depression Screening 05/05/2025 05/05/2024, 04/10/2024, 11/17/2023, Additional history exists Fall Risk Assessment 05/05/2025 05/05/2024, 04/25/2024, 04/10/2024, Additional history exists Colon Cancer Screening-Colonoscopy 03/25/2030 03/25/2020, 11/11/2015 DTaP/Tdap/Td Vaccine (4 - Td or Tdap) 06/07/2031 06/06/2021, 08/02/2015, 09/18/2009 Colon Cancer Screening-CT Colonography Discontinued 03/25/2020, 11/11/2015 Colon Cancer Screening-DNA Stool Discontinued 03/25/19 21, 11/11/2015 Colon Cancer Screening-FIT Discontinued 03/25/2020, Colon Cancer Screening-Sigmoidoscopy Discontinued 03/25/2020, 11/11/2015 Hepatitis C Screening Completed 12/22/2021 Pneumococcal vaccine 65+ Discontinued Medical Devices Implanted Type Area Tube Closing Machine Operator Device Identifier Shelf Expiration Date Model / Serial / Lot R-Hip 2014 Right: Hip Procedures Procedure Name Priority Date/Time Associated Diagnosis Comments AR ARTHROCENTESIS ASPIR&/INJ MAJOR JT/BURSA W/US Routine 05/22/2024 [...] Read Routine (OP Routine) 04/25/2024 8:39 AM PACS ADMINISTRATOR Lumbar spondylosis Lumbar facet arthropathy URINE CULTURE Routine 04/10/2024 9:40 AM PACS ADMINISTRATOR Dysuria POCT URINALYSIS, AUTO W/O SCOPE Routine 04/10/2024 9:34 AM PACS ADMINISTRATOR Dysuria DIAGNOSTIC MAMMOGRAM Schedule Routine, Read Routine (OP Routine) 11/05/2023 3:39 PM CDT HEPATITIS PANEL, ACUTE Routine 12/22/2021 11:17 AM CDT Fatigue, unspecified type DEXA SCAN Routine 11/13/2020 COLONOSCOPY 03/25/2020 1:48 PM PACS ADMINISTRATOR from Last 3 Months or Most Recently Relevant to Health Maintenance Results * AR ARTHROCENTESIS ASPIR&/INJ MAJOR JT/BURSA W/US (05/22/2024 1:00 [...] MAJOR JOINT (05/22/2024 12:57 PM CDT) Narrative RAD_PACS_POCUS_[facility] - 05/22/2024 12:57 PM CDT This procedure was performed and interpreted by the provider. Please refer to the provider's procedure/OR operative note for results. us Mario Aj MD POCUS ORDERABLES Final R esult RAD_PACS_POCUS_[facility] * FL Fluoro Guided Injection Hip Left (05/19/2024 9:51 AM CDT) Narrative [facility] - 05/19/2024 9:51 AM CDT The images from this study are not interpreted by Radiology. Please refer to the physician's procedure / OR operative note. us Nilesh Dos Santos MD IMG FLUOROSCOPY PROCEDURES Final Result Performing Organization Address [facility]/ZIP Co de Phone Number [email or web address] * XR Pelvis 1 or 2 [...] Normal alignment. Vascular calcifications. Procedure Note Hamzah Parra DO - 05/16/2024 EXAMINATION: XR PELVIS 1 OR 2 VIEWS HISTORY: Left hip pain COMPARISON: Radiographs 02/02/2023. FINDINGS: Unchanged moderate left hip osteoarthritis. Right total hip arthroplasty is noted. Pubic symphyseal arthrosis with chondrocalcinosis. No acute fracture or dislocation. Normal alignment. Vascular calcifications. IMPRESSION: 1. Unchanged moderate left hip osteoarthritis. Dictated by: Buzz Sirisha, M.D. The radiology attending physician has personally [...] PROCEDURES Final Re sult Performing Organization Address [facility] de Phone Number [email or web address] * SCAN - RADIOLOGY/IMAGING (05/08/2024 1:49 PM CDT) Anatomical Region Laterality Modality Other Tashia GRAHAM Final Result * SCAN - RADIOLOGY/IMAGING (05/03/2024) Anatomical Region Laterality Modality Other Provider Scanning Final Result * IR Medial Branch Block Lumbar Sacral First Level Bilateral (aka MBB) (04/25/2024 8:39 AM PACS ADMINISTRATOR) Narrative RAD_PACS_[facility] - 04/25/2024 8:39 AM PACS ADMINISTRATOR The images from this study are not interpreted by Radiology. Please refer to the physician's procedure / OR operative note. Nilesh Dos Santos MD IMG IR PROCEDURES Final Re sult Performing Organization Address [facility] Co de Phone Number [email or web address] * (ABNORMAL) Urine culture Urine, clean voided (04/10/2024 9:40 AM PACS ADMINISTRATOR) Urine culture (A) PresentainRony Alba Comment: CULTURE, URINE, ROUTINE Micro Number: [id number] Test Status: Final Specimen Source: Urine, clean [...] Comments Urine, clean voided 04/10/2024 9:40 AM PACS ADMINISTRATOR 04/11/2024 4:20 AM PACS ADMINISTRATOR Anjelica Huntley NP LAB MICROBIOLOGY - GENERAL OR DERABLES Final Result Performing Organization Address City/State/[facility] Co de Phone Number [email or web address] [address] [place] [address] * (ABNORMAL) POCT UA, AUTO W/O SCOPE (04/10/2024 9:34 AM PACS ADMINISTRATOR) Color, Urine, POC Yellow Clarity, ur, POC Cloudy(A) Clear Glucose, ur, POC Negative Negative MG/DL Bilirubin, ur, POC Negative Negative, Small, Moderate, Large Ketones, ur, POC Negative Negative Specific [place], POC 1.015 1.003 - 1.030 Blood, ur, POC Negative Negative pH, ur, POC 7.5 5.0 - 8.0 Protein, ur, POC Negative Negative Urobilinogen, Urine, POC 0.2 mg/dL Leukocytes, ur, POC Small(A) Negative Nitrite, ur, POC Negative Negative Appearance, fld Cloudy(A) Clear Urine 04/10/2024 9:34 AM PACS ADMINISTRATOR Anjelica Huntley NP POINT OF CARE TEST ORDERABLES Final Result * Diagnostic Mammogram (11/05/2023 3:39 PM CDT) Anatomical Region Laterality Modality Breast Mammography Historical Provider MD GUO MAMMO PROCEDURES Ca l Result * Hepatitis panel, acute (12/22/2021 11:17 AM CDT) Hep A IgM NON-REACTI VE NON-REACT JUSTICE [facility] Comment: For additional information, please refer to http://Justworks.[employer]/faq/JPC886 (This link is being provided for informational/ [...] a test for HCV RNA (test code 90694) is suggested. For additional information please refer to http://Justworks.[employer]/faq/ONW99u1 (This link is being provided for informational/ educational purposes only.) Blood 12/22/2021 11:1 7 AM CDT 12/22/2021 11:18 AM CDT Tashia GRAHAM LAB MICROBIOLOGY - NERAL ORDERABLES Final Result [facility] [address] [place] [address] * DEXA SCAN (11/13/2020) Historical Provider [facility] Edited Result - Final * COLONOSCOPY (03/25/2020 1:48 PM PACS ADMINISTRATOR) Anatomical Region Laterality Modality Other Narrative Procedure Note Joseph Guillaume MD PhD - 03/25/2020 1:48 PM CST ENDOSCOPY LAB Patient Name: Maggi De Leon Procedure Date: 03/25/2020 1:48 PM Date of : 1950 Admit Type: Outpatient Age: 69 Gender: Female Attending MD: Joseph Guillaume MD,PHD Room: [facility] ENDOSCOPY ROOM 03 Note Status: Finalized [...] The scope was passed under direct vision.The [id number] was introduced through the anuswith the intention of advancing to the ileum. The scopewas advanced to the sigmoid colon before the procedurewas aborted. Medications were given. The scope waspassed under direct vision. The [id number] was introduced through the anus and advanced [...] During normal business hours - Please call theNurse Coordinator: [phone]. After hours, evening, nights, weekends and holidays- Please call the hospital multiple drill operator at and ask for the GI fellow applications coordinator. Attending Participation: I personally performed the entire procedure. Electronically signed by Joseph Guillaume MD. Joseph Guillaume MD, PHD 03/25/2020 2:32:06 PM Number of Addenda: 0 Note Initiated On: 03/25/2020 1:48 PM us Joseph Guillaume MD PhD ENDOSCOPY PROCEDURES Ca l Result from Last 3 Months or Most Recently Relevant to Health Maintenance Insurance FOR LIFE MEDICARE FOR LIFE MEDICARE FOR LIFE FOR LIFE MEDICARE Advance Directives For more information, please contact: [phone] * Full Code (Latest Code Status on File) Date Activated Date Inactivated Comments 03/25/2020 11:54 AM 03/25/2020 7:31 PM * Full Code Date Activated Date Inactivated Comments 08/04/2018 10:36 AM 08/04/2018 5:07 PM Care Teams Manager Welding Relationship Specialty Start Date End Date Anjelica Huntley NP [address] [place] [address] [address] [place] [address] PCP - General Internal Medicine 06/10/22 Buzz Blankenship MD [address] [facility] [address] [place] [address] Consulting Physician Rheumatology 04/14/21
--- OUTSIDE RECORDS SUMMARY | 2024-05-25 10:47 | XMS_ITS | Encounter Summary ---
Author Organization [facility] Address [address] [place] [address] Phone Care Team Providers Care Shot Bagger Name Role Phone Buzz Blankenship MD Unavailable [phone] Anjelica Huntley NP Primary Care Provider [phone] Encounter Details Date Type Department Care Team (Late st Contact Info) Description 09/29/2022 Orders Only [facility] PMR [phone] Scanning, Provider Social History Tobacco Use Types Packs/Day Years Used Date Smoking Tobacco: Never Smokeless Tobacco: Never Alcohol Use Standard Drinks/Week Comments No 0 (1 standard drink = 0.6 oz pur e alcohol) AUDIT-C Answer Date Recorded Q1: How often do you have a drink containing alcohol? Never 07/30/2021 Q2: How many drinks containi ng alcohol do you have on a typical day when you are drinking? Patient does not drink Q3: How often do you have si x or more drinks on one occasion? Never 07/30/2021 PHQ-2 Answer Date Recorded PHQ-2 Total Score (If total score is 3 or more points, staff should administer the PHQ-9) 0 09/16/2022 Personal Safety Answer Date Recorded Have you ever been in or are you currently in a harmful physical or emotional relationship or is someone making you feel afraid or unsafe? Denies 08/05/2022 Comments No Sex and Gender Information Value Date Recorded Sex Assigned at Not on file Legal Sex Female 5:33 AM GI TECHNICIAN Gender Identity Not on file Sexual Orientation Not on file Occupation Industry Job Start Date Job End Date Retired Not on file Not on file Not on file documented as of this encounter Plan of Treatment Not on file documented as of this encounter Procedures Procedure Name Priority Date/Time Associated Diagnosis Comments SCAN - RADIOLOGY/IMAGING 09/29/2022 documented in this encounter Results * SCAN - RADIOLOGY/IMAGING (09/29/2022) Anatomical Region Laterality Modality Other us Provider Scanning Final Result documented in this encounter Visit Diagnoses Not on filedocumented in this encounter Additional Health Concerns Infection Onset Date Last Indicated Resolved Time Diarrhea 03/30/2023 03/30/2023 04/13/2023 3:06 AM GI TECHNICIAN documented as of this encounter Care Teams Shot Bagger Relationship Specialty Start Date End Date Anjelica Huntley NP [address] [facility] [address] [place] [address] PCP - General Internal Medicine 06/10/22 Buzz Blankenship MD [address] [facility] [address] [place] [address] Consulting Physician Rheumatology 04/14/21 documented as of this encounter
--- OUTSIDE RECORDS SUMMARY | 2024-05-25 10:47 | XMS_ITS | Continuity of Care Document ---
Author Organization [facility] Address [address] [place] [address] Phone Care Team Providers Care Slip Sheeter Name Role Phone Navid Srivastava MD Unavailable Unavailable Procedures Procedure Date Post-op Follow-up Visit Post-op Follow-up Visit After Cataract Laser Surgery Eye Exam & Treatment Corneal Pachymetry Advance Directives Directive Yes / No Effective Date File Name No Information Encounters Encounter Description Practice Location Reason(s) For Visit Diagnoses Date Provider Providers Copied on Encounter [facility], [id number] [place] [address] [address], [place], [place], [id number], tel:[phone] SEC David DALJIT Professional No Information 1 Atif Shoemaker. [address] [facility] [place] [id number], [place]. tel:[phone] Referring Provider: Navid Brown [address] [facility] [address], [place], [address] . tel:[phone] [facility], [address], [place], [place], [address], tel:[phone] SEC David DALJIT Professional No Information 1 Atif Shoemaker. [address], [facility] [place], [id number], [place]. tel:[phone] Referring Provider: Navid Brown, [address] [facility] [place], [address] . tel:[phone] [facility], [address] [facility] [address], [place], [place], [address], tel:[phone] SEC [place] Professional No Information Oct 3-201 1 Atif Shoemaker. [address] [facility], [facility] [place], [address], . tel:[phone] Referring Provider: Navid Brown, [address] [facility] [place], [address] . tel:[phone] [facility], [address] [facility] [place] [address], [place], [place], [address], tel:[phone] SEC [place] Professional No Information Oct-2 0-201 1 Atif Shoemaker. [address] [facility], [facility] [place], [address], . tel:[phone] Referring Provider: Navid Brown, [address] [facility] [place], [address] . tel:[phone] Family History Family Member Type Diagnosis Age At Onset No Information Payers Payer name Insurance type Covered democrat ID Authoriza tion(s) No Information Social History Type Description Quantity Date Captured Comments Sex Female Smoking Status No Information Chief Complaint And Reason For Visit No Information Reason For Referral Reason For Referral No Information History Of Present Illness Encounter Date Complaint History Of Prese nt Illness No Information Functional Status Date Functional Assessmen t No Information Instructions Date Instruction Additional Infor mation No Information Assessments Type Assessment Date No Information Patient Care Teams Name Effective Dates (start - stop) Status Members No Information
--- OUTSIDE RECORDS SUMMARY | 2024-05-25 10:47 | XMS_ITS | Encounter Summary ---
Author Organization [facility] Address [address] [place] [address] Phone Care Team Providers Care Marketing Systems Analyst Name Role Phone Era Espinoza MD Primary Care Provider [phone] Era Espinoza MD Primary Care Provider [phone] Unknown, Notinfile Primary Care Provider Unavail Annamaria Farooq Primary Care Provider [phone] Buzz Blankenship MD Unavailable [phone] Anjelica Huntley NP Primary Care Provider [phone] Anjelica Huntley NP Primary Care Provider [phone] Encounter Details Date Type Department Care Team (Late st Contact Info) Description 07/25/2018 Orders Only [facility] GASTROENTEROLOGY Scanning, Provider Social History Tobacco Use Types Packs/Day Years Used Date Smoking Tobacco: Never Smokeless Tobacco: Never Alcohol Use Standard Drinks/Week Comments No 0 (1 standard drink = 0.6 oz pur e alcohol) Comments Unknown Sex and Gender Information Value Date Recorded Sex Assigned at Not on file Legal Sex Female 5:33 AM SMOKE TESTER Gender Identity Not on file Sexual Orientation Not on file Occupation Industry Job Start Date Job End Date Retired Not on file Not on file Not on file documented as of this encounter Plan of Treatment Not on file documented as of this encounter Procedures Procedure Name Priority Date/Time Associated Diagnosis Comments SCAN - LABS 07/25/2018 documented in this encounter Results * SCAN - LABS (07/25/2018) us Provider Scanning Final Result documented in this encounter Visit Diagnoses Not on filedocumented in this encounter Additional Health Concerns Infection Onset Date Last Indicated Resolved Time COVID: Suspected 02/19/2020 02/19/2020 02/19/2020 12:10 PM SMOKE TESTER COVID: Suspected 02/19/2020 02/19/2020 02/21/2020 2:47 PM SMOKE TESTER Respiratory Infection (RANDAL), contact + droplet Comment:Automatically added due to negative COVID-19 result. 02/21/2020 02/21/2020 03/06/2020 3:0 7 AM SMOKE TESTER Diarrhea 03/30/2023 03/30/2023 04/13/2023 3:06 AM SMOKE TESTER documented as of this encounter Care Teams Marketing Systems Analyst Relationship Specialty Start Date End Date Era Espinoza MD PCP - General Family Practice 11/22/17 03/07/19 Era Espinoza MD PCP - General Family Practice 03/08/19 10/10/19 Unknown, Notinfile PCP - General 10/11/19 10/15/19 Annamaria Bates PA PCP - General Chief Lifestyle Officer 10/16/19 12/01/21 Anjelica Huntley TRACING LATHE SET UP OPERATOR [address] [facility] [address] [place] [address] PCP - General Internal Medicine 12/02/21 06/09/22 Anjelica Huntley TRACING LATHE SET UP OPERATOR [address] [facility] [address] [place] [address] PCP - General Internal Medicine 06/10/22 Buzz Blankenship MD [address] [facility] [facility] [address] [place] [address] Consulting Physician Rheumatology 04/14/21 documented as of this encounter
--- OUTSIDE RECORDS SUMMARY | 2024-05-25 10:47 | XMS_ITS | Encounter Summary ---
Author Organization [facility] Address [address] [place] [address] Phone Care Team Providers Care Roll Mill Operator Name Role Phone Era Espinoza MD Primary Care Provider + [phone] Era Espinoza MD Primary Care Provider + [phone] Unknown, Notinfile Primary Care Provider Unavail Annamaria Farooq Primary Care Provider [phone] Buzz Blankenship MD Unavailable [phone] Anjelica Huntley NP Primary Care Provider [phone] Anjelica Huntley NP Primary Care Provider [phone] Encounter Details Date Type Department Care Team (Late st Contact Info) Description 07/28/2018 Orders Only [facility] Scanning, Provider Social History Tobacco Use Types Packs/Day Years Used Date Smoking Tobacco: Never Smokeless Tobacco: Never Alcohol Use Standard Drinks/Week Comments No 0 (1 standard drink = 0.6 oz pur e alcohol) Comments Unknown Sex and Gender Information Value Date Recorded Sex Assigned at Not on file Legal Sex Female 5:33 AM NEUROSURGICAL PHYSICIAN ASSISTANT Gender Identity Not on file Sexual Orientation Not on file Occupation Industry Job Start Date Job End Date Retired Not on file Not on file Not on file documented as of this encounter Plan of Treatment Not on file documented as of this encounter Procedures Procedure Name Priority Date/Time Associated Diagnosis Comments SCAN - LABS 07/28/2018 documented in this encounter Results * SCAN - LABS (07/28/2018) us Provider Scanning Final Result documented in this encounter Visit Diagnoses Not on filedocumented in this encounter Additional Health Concerns Infection Onset Date Last Indicated Resolved Time COVID: Suspected 02/19/2020 02/19/2020 02/19/2020 12:10 PM NEUROSURGICAL PHYSICIAN ASSISTANT COVID: Suspected 02/19/2020 02/19/2020 02/21/2020 2:47 PM NEUROSURGICAL PHYSICIAN ASSISTANT Respiratory Infection (RANDAL), contact + droplet Comment:Automatically added due to negative COVID-19 result. 02/21/2020 02/21/2020 03/06/2020 3:0 7 AM NEUROSURGICAL PHYSICIAN ASSISTANT Diarrhea 03/30/2023 03/30/2023 04/13/2023 3:06 AM NEUROSURGICAL PHYSICIAN ASSISTANT documented as of this encounter Care Teams Roll Mill Operator Relationship Specialty Start Date End Date Era Espinoza MD PCP - General Family Practice 11/22/17 03/07/19 Era Espinoza MD PCP - General Family Practice 03/08/19 10/10/19 Unknown, Notinfile PCP - General 10/11/19 10/15/19 Annamaria Bates PA PCP - General Manager Food 10/16/19 12/01/21 Anjelica Huntley EQUIPMENT PROCESSOR [address] [facility] [address] [place] [address] PCP - General Internal Medicine 12/02/21 06/09/22 Anjelica Huntley EQUIPMENT PROCESSOR [address] [facility] [address] [place] [address] PCP - General Internal Medicine 06/10/22 Buzz Blankenship MD [address] [facility] [facility] [address] [place] [address] Consulting Physician Rheumatology 04/14/21 documented as of this encounter
--- OUTSIDE RECORDS SUMMARY | 2024-05-25 10:47 | XMS_ITS | Encounter Summary ---
Author Organization [facility] Address [address] [place] [address] Phone Care Team Providers Care Sales Promoter Name Role Phone Buzz Blankenship MD Unavailable [phone] Anjelica Huntley NP Primary Care Provider [phone] Encounter Details Date Type Department Care Team (Late st Contact Info) Description 05/08/2024 Results Follow-Up [facility] [address] [place] [address] Tashia Kirk PA [address] [place] [address] Social History Tobacco Use Types Packs/Day Years [...] on file Legal Sex Female 5:33 AM RUN LEAD Gender Identity Not on file Sexual Orientation Not on file Occupation Industry Job Start Date Job End Date Retired Not on file Not on file Not on file documented as of this encounter Miscellaneous Notes * Assessment & Plan Note - Tashia Kirk PA - 05/08/2024 3:48 PM CDT Associated Problem(s): Pain of right hand XR R hand 04/2024: 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 documented in this encounter Plan of Treatment Not on file documented as of this encounter Visit Diagnoses Not on filedocumented in this encounter Care Teams Sales Promoter Relationship Specialty Start Date End Date Anjelica Huntley NP [address] [facility] [address] [place] [address] PCP - General Internal Medicine 06/10/22 Buzz Blankenship MD [address] [facility] [address] [place] [address] Consulting Physician Rheumatology 04/14/21 documented as of this encounter
--- OUTSIDE RECORDS SUMMARY | 2024-05-25 10:47 | XMS_ITS | Encounter Summary ---
Author Organization [facility] Healthcare Address [address] [place] [address] Care Team Providers Care Shipping Clerk Packing Name Role Phone Annamaria Bates Primary Care Provider [phone] Buzz Blankenship MD Unavailable [phone] Anjelica Huntley SALES SUPPORT MANAGER Primary Care Provider [phone] Anjelica Huntley SALES SUPPORT MANAGER Primary Care Provider [phone] Encounter Details Date Type Department Care Team (Late st Contact Info) Description 05/28/2021 Telephone [facility] Radiology [address] [facility] [address] [place] [address] Whitley De Jesus, RT Social History Tobacco Use Types Packs/Day Years Used Date Smoking Tobacco: Never Smokeless Tobacco: Never Alcohol Use Standard Drinks/Week Comments No 0 (1 standard drink = 0.6 oz pur e alcohol) AUDIT-C Answer Date Recorded Q1: How often do you have a drink containing alc ohol? Never 04/08/2021 Average Number of Drinks Not on file 022 Q3: How often do you have si x or more drinks on one occasion? Never 04/08/2021 PHQ-2 Answer Date Recorded PHQ-2 Total Score (If total score is 3 or more points, staff should administer the PHQ-9) 0 02/17/2021 Comments No Sex and Gender Information Value Date Recorded Sex Assigned at Not on file Legal Sex Female 5:33 AM PRINT PROJECT MANAGER Gender Identity Not on file Sexual Orientation [...] Time Diarrhea 03/30/2023 03/30/2023 04/13/2023 3:06 AM PRINT PROJECT MANAGER documented as of this encounter Care Teams Shipping Clerk Packing Relationship Specialty Start Date End Date Annamaria Bates PA PCP - General Physics Technical Officer 10/16/19 12/01/21 Anjelica Huntley NP [address] [place] [address] PCP - General Internal Medicine 12/02/21 06/09/22 Anjelica Huntley NP [address] [place] [address] PCP - General Internal Medicine 06/10/22 Buzz Blankenship MD [address] [place] [address] Consulting Physician Rheumatology 04/14/21 documented as of this encounter
--- OUTSIDE RECORDS SUMMARY | 2024-05-25 10:47 | XMS_ITS | CONTINUITY OF CARE DOCUMENT ---
Author Name rosita becker Address Unknown Organization [facility] Address [address] [facility] [address] [place] [address] Phone [phone] Care Team Providers Care Marble Worker Name Role Phone Jonathan MONTENEGRO, Yang Unavailable [phone] INSURANCE PROVIDERS Payer name Policy type / Coverage type [place] red democrat ID VICTORINA [id number] [id number]
--- OUTSIDE RECORDS SUMMARY | 2024-05-25 10:47 | XMS_ITS | Encounter Summary ---
Author Organization [facility] Healthcare Address [address] [place] [address] Care Team Providers Care Immigration Attorney Name Role Phone Buzz Blankenship MD Unavailable [phone] Anjelica Huntley NP Primary Care Provider [phone] Encounter Details Date Type Department Care Team (Late st Contact Info) Description 04/13/2024 Results Follow-Up [facility] Medical [facility] Internal [facility] [place] [address] [place] [address] Anjelica Huntley NP [address] [place] [address] Social History Tobacco Use Types Packs/Day Years [...] points, staff should administer the PHQ-9) 0 04/10/2024 PHQ-9 Answer Date Recorded PHQ-9 Total Score 11 08/23/2023 Personal Safety Answer Date Recorded Have you ever been in or are you currently in a harmful physical or emotional relationship or is someone making you feel afraid or unsafe? Denies 04/14/2024 Comments No Sex and Gender Information Value Date Recorded Sex Assigned at Not on file Legal Sex Female 5:33 AM SENIOR LIBRARIAN Gender Identity Not on file Sexual Orientation Not on file Occupation Industry Job Start Date Job End Date Retired Not on file Not on file Not on file documented as of this encounter Plan of Treatment Not on file documented as of this encounter Visit Diagnoses Not on filedocumented in this encounter Care Teams Immigration Attorney Relationship Specialty Start Date End Date Anjelica Huntley, HAND REAMER [address] [facility] 500 [place] [address] PCP - General Internal Medicine 06/10/22 Buzz Blankenship MD [address] [facility] [address] [place] [address] Consulting Physician Rheumatology 04/14/21 documented as of this encounter
--- OUTSIDE RECORDS SUMMARY | 2024-05-25 10:47 | XMS_ITS | Clinical Summary ---
Author Organization [facility] Lazaro Keithdesirae Address [address] [facility] [place] [address] Care Team Providers Care Vp Of Marketing Name Role Phone Unavailable Primary Care Provider Unavailabl e Allergies Active Allergy Reactions Criticality Noted Date Comments Diphenhydramine-Acetamin ophen Nausea and Vomiting Low 07/24/2019 Ezetimibe Muscle Pain Medium 03/21/2021 Hydrocodone Nausea and Vomiting Low 03/04/2020 Penicillins Swelling Medium 03/13/2015 Pregabalin Other (See Comments) Low 04/14/2022 Blurred vision Qqssdme-Ath-Zww Reductase Inhibitors Muscle Pain Medium 03/21/2021 Tramadol Nausea and Vomiting Low 03/13/2015 Medications FLUoxetine (PROzac) 10 mg capsule 2 Active ALPRAZolam (XANAX) 0.25 mg tablet TAKE 1 TABLET BY MOUTH 2 TIMES A DAY NEEDED FOR ANXIETY. 2 Active celecoxib (CeleBREX) 200 mg capsule TAKE 1 CAPSULE BY MOUTH TWICE A DAY NEEDED FOR PAIN 2 Active ondansetron (ZOFRAN ODT) 4 mg Tablet, Rapid Dissolve Take 4 mg by mouth. 2 Active mupirocin (BACTROBAN) 2 % Ointment APPLY TO AFFECTED AREA 3 TIMES A DAY FOR 10 DAYS 2 Active fluticasone propionate (FLONASE) 50 mcg/spray [place], Suspension nasal inhaler 2 Active linaCLOtide (Linzess) 72 mcg Capsule capsule 2 Active adalimumab (HUMIRA) 40 mg/0.8 mL Syringe Kit Inject 40 mg by subcutaneous injection. 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 Thrombocythemia 05/22/2020 Overview (08/07/2021): Last Assessment & Plan: She has second opinion pending, will repeat cbc in the interim Family History Relation Name Status Comments Brother 1 Brother 2 Alive Brother 3 Alive Daughter Alive Father Mother Sister 1 Alive Sister 2 Alive Son 1 Alive Son 2 Alive Son 3 Alive Social History Tobacco Use Types Packs/Day Years Used Date Smoking Tobacco: Never Smokeless Tobacco: Never Tobacco Cessation:Counseling Given: Not Answered Alcohol Use Standard Drinks/Week Comments Yes 0 (1 standard drink = 0.6 oz pur e alcohol) Comments Unknown Sex and Gender Information Value Date Recorded Sex Assigned at Not on file Legal Sex Female 1:56 PM CDT Gender Identity Not on file Sexual Orientation Not on file Last Filed Vital Signs Vital Sign Reading Time Taken Comments Blood Pressure 141/75 10/12/2022 11:25 AM CDT Pulse 84 10/12/2022 11:23 AM CDT Temperature 36 C (96.8 F) 10/12/2022 11:23 AM CDT Respiratory Rate 10 10/12/2022 11:23 AM CDT Oxygen Saturation 100% 10/12/2022 11:23 AM CDT Inhaled Oxygen Concentration - - Weight 67.6 kg (149 lb) 10/12/2022 11:23 AM CDT Height 152.4 cm (5') 12/09/2021 10:29 AM CDT Body Mass Index 29.1 12/09/2021 10:29 AM CDT Plan of Treatment Health Maintenance Due Date Last Done Comments DIABETES ANNUAL FOOT EXAM 11/09/1969 DIABETES ANNUAL RETINAL EXAM 11/09/1969 DIABETES HBA1C Q 6 MONTHS 11/09/1969 DIABETES MICROALBUMIN ANNUAL SCREEN 11/09/1969 LDL CHOLESTEROL ANNUAL 11/09/1969 PNEUMOCOCCAL VACCINE 50+ YEA RS (1 of 2 - PCV) 11/09/1970 FIT-DNA Q 3 years 11/09/1996 FIT/FOBT Q 1 year 11/09/1996 Flex Sig/CT Colonography Q 5 years 11/09/1996 ZOSTER VACCINE (1 of 2) 11/09/2001 BREAST CANCER SCREENING 06/24/2022 06/25/19 22, 02/17/2021, 02/17/2021, Additional history exists INFLUENZA VACCINE (#1) 2023 DTAP/TDAP/TD VACCINES (3 - T d or Tdap) 08/01/2025 08/02/2015, 09/18/2009 RSV VACCINE (60+ or ) (1 - 1-dose 75+ series) 11/09/2026 COLORECTAL SCREENING 03/25/2030 03/25/2020, 03/25/19 Colorectal Cancer Screening 03/25/2030 OSTEOPOROSIS SCREENING Completed 11/13/2020, 2018 Insurance MEDICARE PART A AND B [employer] [facility] Address: [facility] [address] [place] [address]
--- OUTSIDE RECORDS SUMMARY | 2024-05-25 10:47 | XMS_ITS | Encounter Summary ---
Author Organization [facility] Healthcare Address [address] [place] [address] Care Team Providers Care Food Processor Name Role Phone Buzz Blankenship MD Unavailable [phone] Anjelica Huntley NP Primary Care Provider [phone] Encounter Details Date Type Department Care Team (Late st Contact Info) Description 2022 Telephone [facility]OB4 Radiology [address] [facility] [address] [place] [address] Emili Goode, RT Social History Tobacco Use Types Packs/Day [...] on file Legal Sex Female 5:33 AM TURF AND GROUNDS SUPERVISOR Gender Identity Not on file Sexual Orientation [...] Time Diarrhea 03/30/2023 03/30/2023 04/13/2023 3:06 AM TURF AND GROUNDS SUPERVISOR documented as of this encounter Care Teams Food Processor Relationship Specialty Start Date End Date Anjelica Huntley NP [address] [facility] [address] [place] [address] PCP - General Internal Medicine 06/10/22 Buzz Blankenship MD [address] [facility] [address] [place] [address] Consulting Physician Rheumatology 04/14/21 documented as of this encounter
--- OUTSIDE RECORDS SUMMARY | 2024-05-25 10:47 | XMS_ITS | Data Portability ---
Author Organization [facility], [facility] Address [address] [place] [address] Assessment No assessment recorded. Plan of Treatment Reminders Order Date Submit Date Provider Last Modified By Organization Details Last Modified Time Details Appointments None recorded. Lab None recorded. Referral None recorded. Procedures None recorded. Surgeries None recorded. Imaging ultrasound, lower extremity, nonvascular 2015 016 [email or web address] Not available 6 14:09:41 x-ray, weightbeari ng knee - room 3 2015 Huey [email or web address] Not available 6 18:07:47 Medication Orders None recorded. Patient TargetsNo targets recorded. Patient Instructions Encounter Date Encounter Id Patient Instructions Last Modified By Organization Details Last Modified Time 03/14/2015 [id number] knee arthritis: care instructions Not available 03/20/2015 14:20:20 knee pain or injury: care instructions Not available 03/20/2015 14:20:20 hip arthritis: care instructions Not available 03/20/2015 14:20:20 osteoarthritis: care instructions Not available 03/20/2015 14:20:20 Reason for Referral None Reported. Problems Name Problem SNOMED Code Status Onset Date Resolution Date Notes Provider Name and Address Organization Details Recorded Time Knee pain Active Scot [facility] [facility], [employer] 6 14:01:24 Osteoarthritis of hip 155663458 Active Scot [facility], [facility] 6 14:01:23 Osteoarthritis of knee 421178928 Active Scot bobby [employer], [employer] 6 14:01:23 Problem Notes None recorded. Procedures Surgical History Date Name Laterality Status Provider Name and Address Organization Details Recorded Time 02/22/[address] [facility] 03/14/2015 12:39:44 02/22/18 [address] [facility] 03/14/2015 12:39:44 Imaging Results None recorded. Procedure Notes None recorded. Medical Equipment None Reported. Allergies Allergen ID Allergen Name Allergen Category Reaction Reaction Severity Criticality Documentation Date Start Date Code Code System Note Provider Name and Address Organization Details Recorded Time 83912 Product containin g penicilli n (product) medicatio n hives Not available Not available 03/14/2015 01648 8001 SNOMED [facility] 6 12:39:44 77786 tramadol medicatio n vomiting Not available Not available 03/14/2015 28378 RxNorm [facility] 6 12:39:44 Medications Name Sig Start Date Stop Date Status Note LastModified by Organization Details LastModified Time meclizine active Not Available Not Shalini ilable Not Available Prozac active Not Available Not Availa ble Not Available Glucosamine active Not Available Not A vailable Not Available Nexium active Not Available Not Availa ble Not Available Vitals Date Recorded Body mass index (BMI) Body weight Heart rate Body height Systolic blood pressure Diastolic blood pressure Provider Name and Address Organization Details Last Updated DateTime 6 30.2 kg/m2 76552.7 792 g 73 /min 154.94 cm 148 mm[Hg] 95 mm[Hg] [facility] 6 12:39:44 Social History Question Answer Notes LastModified by Organizat ion Details LastModified Time Tobacco Smoking Status Never [facility]oker [facility] 03/14/2015 12:39:44 What Is Your Level Of Alcohol Consumption? Occasional Information not available 03/14/2015 What Is Your Occupation? Retired Clerical Information not available 03/14/2015 Marital Status Information not available 03/14/2015 Sex: Unknown Functional Status None recorded. Mental Status None recorded. Family History Relationship Description Onset Age of this Age Resolved Age Notes LastModified by Organization Details LastModified Time Mother Arthritis Not avail able 03/14/2015 12:39:44 Mother Completed stroke Not available 02/23 12:39:44 Medical History Condition Response HIV or AIDS N Coronary Artery Disease N Gout N Kidney Stones N Hyperthyroidism N Head Trauma/Injury N Hernia N Hypothyroidism N Depression Y COPD N Blood Clots N Lung Disease N Pacemaker N Anxiety Disorder N Arthritis Y Cancer N Stroke N Neck Injury N Leg or Foot Ulcers N High Cholesterol N Liver Disease N Rheumatoid Arthritis N Headaches N Fibromyalgia N Kidney Disease N Heart Problems N Migraines N Thyroid Problems N Anemia N Multiple Sclerosis N Ulcers N Heart Attack ([place]) N Diabetes N Bleeding Disorder N Seizures/Epilepsy N Tuberculosis N Urinary Tract Infection N Back Problems N Diverticulitis N Asthma N Lupus N Peripheral Vascular Disease N Sleep Disorder N GERD/Reflux Y Hepatitis N Aneurysm N Heart Disease N Pulmonary Embolism N Hypertension N Osteoporosis N Gynecological HistoryNo gynecological history recorded. Obstetrics History GPAL:G 0 P 0 0 0 0 Past Encounters Encounter ID Performer Location Encounter Start Date Encounter Closed Date Diagnosis/Indication Diagnosis SNOMED-CT Code Diagnosis ICD10 Code Diagnosis Note [id number] Scot Kohli [facility] [address] [facility] [address] [place] [address] 03/14/2015 12:00:32 03/14/2015 14:09:41 Knee pain 00337842 M25.561 Osteoarthritis of hip 23 9713138 M16.9 Osteoarthr itis of knee 438414579 M17.9 Health Concerns Section Related Observation LastModified by Organization Detai ls LastModified Time None Recorded Concern Status LastModified by Organization Details LastModified Time None Recorded Advance Directives Directive None Recorded Payers Encounter Date Sequence Insurance Name Policy Number Policy Dennison Covered Member ID Dennison Member ID Guarantor Name 03/14/2015 1 *SELF PAY* Lance Kamara Notes Date Note Type Note Provider Name and Address Organization Details Recorded Time 03/14/2015 text/html See Dictated NoteReported bypatient.Notes:SE Lo DICTATED NOTES ROBER Calles - [facility], [facility] 03/18/2015 06:21:41 OBGyn Episode No OBEpisode recorded.
--- OUTSIDE RECORDS SUMMARY | 2024-05-25 10:47 | XMS_ITS | Encounter Summary ---
Author Organization [facility] Address [address] [place] [address] Phone Care Team Providers Care Art Therapy Specialist Name Role Phone Era Espinoza MD Primary Care Provider [phone] Era Espinoza MD Primary Care Provider [phone] Unknown, Notinfile Primary Care Provider Unavail Annamaria Farooq Primary Care Provider [phone] Buzz Blankenship MD Unavailable [phone] Anjelica Huntley NP Primary Care Provider [phone] Anjelica Huntley LEDGE MAN Primary Care Provider [phone] Encounter Details Date Type Department Care Team (Late st Contact Info) Description 01/07/2018 Orders Only [facility] GASTROENTEROLOGY Scanning, Provider Social History Tobacco Use Types Packs/Day Years Used Date Smoking Tobacco: Former Smokeless Tobacco: Never Alcohol Use Standard Drinks/Week Comments No 0 (1 standard drink = 0.6 oz pur e alcohol) Comments Unknown Sex and Gender Information Value Date Recorded Sex Assigned at Not on file Legal Sex Female 5:33 AM AMERICAN INDIAN STUDIES PROFESSOR Gender Identity Not on file Sexual Orientation Not on file documented as of this encounter Plan of Treatment Not on file documented as of this encounter Procedures Procedure Name Priority Date/Time Associated Diagnosis Comments SCAN - LABS 01/07/2018 documented in this encounter Results * SCAN - LABS (01/07/2018) us Provider Scanning Final Result documented in this encounter Visit Diagnoses Not on filedocumented in this encounter Additional Health Concerns Infection Onset Date Last Indicated Resolved Time COVID: Suspected 02/19/2020 02/19/2020 02/19/2020 12:10 PM AMERICAN INDIAN STUDIES PROFESSOR COVID: Suspected 02/19/2020 02/19/2020 02/21/2020 2:47 PM AMERICAN INDIAN STUDIES PROFESSOR Respiratory Infection (RANDAL), contact + droplet Comment:Automatically added due to negative COVID-19 result. 02/21/2020 02/21/2020 03/06/2020 3:0 7 AM AMERICAN INDIAN STUDIES PROFESSOR Diarrhea 03/30/2023 03/30/2023 04/13/2023 3:06 AM AMERICAN INDIAN STUDIES PROFESSOR documented as of this encounter Care Teams Art Therapy Specialist Relationship Specialty Start Date End Date Era Espinoza MD PCP - General Family Practice 11/22/17 03/07/19 Era Espinoza MD PCP - General Family Practice 03/08/19 10/10/19 Unknown, Notinfile PCP - General 10/11/19 10/15/19 Annamaria Bates PA PCP - General Leather Goods Ii Assembler 10/16/19 12/01/21 Anjelica Huntley LEDGE MAN [address] [place] [address] PCP - General Internal Medicine 12/02/21 06/09/22 Anjelica Huntley NP [address] [facility] [address] [place] [address] PCP - General Internal Medicine 06/10/22 Buzz Blankenship MD [address] [place] [address] Consulting Physician Rheumatology 04/14/21 documented as of this encounter
[2024-05-25 10:48] LABS: Alanine Aminotransferase 28 U/L (6-35); Albumin Level 4.1 g/dL (3.5-5.1); Alkaline Phosphatase 97 U/L (38-126); Anion Gap 8 mmol/L (4-12); Aspartate Amino Transferase 35 U/L (14-36); Bilirubin,Total 0.5 mg/dL (0.2-1.3); Blood Urea Nitrogen 16 mg/dL (7-17); Carbon Dioxide 29 mmol/L (22-30); Chloride 96 mmol/L (98-107); Estimated Glomerular Filt Rate > 60; Glucose 102 mg/dL (65-110); Lipase 270 U/L (23-300); Potassium 3.2 mmol/L (3.4-5.0); Sodium 133 mmol/L (137-145)
[2024-05-25 10:51] LABS: INR 0.9; Prothrombin Time 12.7 Seconds (11.1-14.7)
[2024-05-25 10:52] LABS: Partial Thromboplastin Time 21.7 Seconds (22.3-36.8)
[2024-05-25 11:00] LABS: NT Pro B Type Natriuretic Pept 103 pg/mL (19.9-100); Troponin I < 0.012 ng/mL (0.000-0.034)
[2024-05-25 11:14] LABS: Influenza A QL RT-PCR Negative (Negative); Influenza B QL RT-PCR Negative (Negative); RSV RNA, RT-PCR Negative (Negative); SARS-CoV-2 RNA PCR Negative (Negative)
--- OUTSIDE RECORDS SUMMARY | 2024-05-25 11:17 | XMS_ITS | Referral Summary ---
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 Orthopaedic Surgery [address] [facility] 1st Floor [address] [place] [address] Arrived 05/22/2024 1:00 PM CDT Procedure visit [facility] Orthopaedic Surgery [address] [facility] 1st Floor [address] [place] [address] Mario Aj MD Primary osteoarthritis of both knees 05/19/2024 8:46 AM CDT - 05/19/2024 11:59 PM CDT Hospital Encounter [id number] [address] [facility] [address] [place] [phone] Nilesh Dos Santos MD Primary osteoarthritis of left hip; Left hip pain Discharge Disposition: Discharge to home or self care 05/17/2024 Telephone Radiology - [address] [facility] [address] [place] [address] Radha Fox RT 05/17/2024 Orders Only [facility] Orthopaedic Surgery [address] [facility] 2nd Floor [address] [place] [address] Nilesh Dos Santos MD Primary osteoarthritis of left hip (Primary Dx); Left hip pain 05/16/2024 Results Follow-Up [facility] Orthopaedic Surgery [address] [facility] 2nd Floor [address] [place] [address] Nilesh Dos Santos MD 05/16/2024 9:40 AM CDT - 05/16/2024 11:59 PM CDT Hospital Encounter [facility] [address] [place] [address] Left hip pain Discharge Disposition: Discharge to home or self care 05/16/2024 8:45 AM CDT Office Visit [facility] Orthopaedic Surgery [address] [facility] 2nd Floor [address] [place] [address] Nilesh Dos Santos MD Left hip pain (Primary Dx); Primary osteoarthritis of left hip; Chronic sacroiliac joint pain; Lumbar facet joint pain; Lumbar spondylosis; Primary osteoarthritis involving multiple joints 05/12/2024 7:31 AM CDT - 05/12/2024 11:59 PM CDT Hospital Encounter [id number] [address] [facility] [address] [place] [address] Nilesh Dos Santos MD Chronic sacroiliac joint pain Discharge Disposition: Discharge to home or self care 05/11/2024 Orders Only [address] [address] Buzz Blankenship MD 05/11/2024 12:55 PM CDT - 05/11/2024 11:59 PM CDT Hospital Encounter [address] [phone] Localized primary osteoarthritis of carpometacarpal (CMC) joint of right wrist Discharge Disposition: Discharge to home or self care 05/09/2024 Telephone Radiology - [address] [facility] [address] [place] [address] Radha Fox RT 05/08/2024 Results Follow-Up [address] [phone] Tashia Kirk PA 05/08/2024 Orders Only [address] [address] Tashia Kirk PA 05/05/2024 10:00 AM CDT Office Visit [facility] Internal Medicine at [address] [place] [address] Anjelica Huntley NP Weight gain (Primary Dx); BMI 29.0-29.9,adult; Primary insomnia 05/03/2024 Orders Only [facility] Health Information Management [address] [place] [address] Scanning, Provider 05/03/2024 9:15 AM CDT Office Visit [facility] [address] [place] [address] Tashia Kirk PA Polyarthralgia (Primary Dx); Fibromyalgia; Pain of right hand; Localized primary osteoarthritis of carpometacarpal (CMC) joint of right wrist 05/02/2024 Orders Only [facility] Orthopaedic Surgery [address] [place] [address] 2nd Floor [address] [place] [address] Nilesh Dos Santos MD Chronic sacroiliac joint pain (Primary Dx) 04/27/2024 Telephone [facility] Orthopaedic Surgery [address] [facility] Medical Office Building [address] [place] [address] Francine Isaac LPN 04/26/2024 Telephone [facility] Orthopaedic Surgery [address] [facility] 1st Floor [address] [place] [address] Mario Aj MD 04/25/2024 7:57 AM OPTICAL INSTRUMENT SPECIALIST - 04/25/2024 11:59 PM OPTICAL INSTRUMENT SPECIALIST Hospital Encounter [facility] [address] [place] [address] Gerald Woodard MD Lumbar spondylosis (Primary Dx); Lumbar facet arthropathy Discharge Disposition: Discharge to home or self care 04/19/2024 Telephone [facility] Orthopaedic Surgery [address] [place] [address] 2nd Floor [address] [place] [address] Justine Peraza CMA 04/13/2024 Results Follow-Up [facility] [place] [address] [place] [address] Anjelica Huntley NP 04/10/2024 9:00 AM OPTICAL INSTRUMENT SPECIALIST Office Visit [facility] [place] [address] [place] [address] Anjelica Huntley NP Dysuria (Primary Dx); BMI 28.0-28.9,adult; Left sided sciatica; Moderate persistent asthma without complication 03/31/2024 Telephone [facility] [address] [place] [address] Anjelica Huntley NP 03/27/2024 Telephone [facility] [address] [place] [address] Anjelica Huntley NP 03/24/2024 Telephone [facility] Orthopaedic Surgery [id number] [place] [address] 2nd Floor [address] [place] [address] Nilesh Dos Santos MD 03/21/2024 Orders Only [facility] Orthopaedic Surgery [address] [place] [address] [address]nd [address] [place] [address] Nilesh Dos Santos MD Lumbar spondylosis; Lumbar facet arthropathy 03/10/2024 Telephone [facility] Orthopaedic Surgery [address] [place] [address] [address] [place] [address] Francine Isaac LPN 03/09/2024 Orders Only [facility] Orthopaedic Surgery [address] [facility] 1st Floor [address] [place] [address] Mario Aj MD Primary osteoarthritis of both knees (Primary Dx) 03/06/2024 Telephone [facility] Orthopaedic Surgery [address] [facility] [facility] 1st Floor [address] [place] [address] Mario Aj MD 03/02/2024 Orders Only [facility] Orthopaedic Surgery [address] [facility] Medical Office Building [address] [place] [address] Nilesh Dos Santos MD 02/28/2024 Telephone [facility] Orthopaedic Surgery [address] [facility] Medical Office Building [address] [place] [address] Nilesh Dos Santos MD from Last 3 [...] Dysuria 03/16/2023 Coronary artery disease invo lving [place] coronary artery of [place] heart without angina pectoris 03/09/2023 History of [...] 05/20/2022 Assessment & Plan (12/29/2022 11:49 AM OPTICAL INSTRUMENT SPECIALIST): Resolved with kenalog IM. Will defer restarting [...] 03/24/2022 Assessment & Plan (03/24/2022 10:44 AM OPTICAL INSTRUMENT SPECIALIST): Likely worsened by MTX which was stopped 01/2022. Recommend folic acid up to 3mg daily and biotin. Encouraged to discuss with her trip follower as well. Primary insomnia 03/13/2022 Assessment & Plan (09/29/2023 9:19 AM CDT): This is a significant, separately identifiable problem that was evaluated and managed on the same day as the wellness exam Dyspnea on exertion 02/04/2022 Overview (02/04/2022): Patient O2 sat is 98%. She does complain of slight chest pressure and shortness of breath. 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 current use of therapeutic drug 2021 Overview (12/25/2021): TSPOT negative: 11/2021 Hepatitis panel negative: 11/2021 Assessment & Plan (10/19/2023 8:42 AM CDT): Hepatitis panel negative: 11/2021 TSPOT negative: 11/2021 Assessment & Plan (09/21/2023 11:22 AM CDT): Hepatitis panel negative: 11/2021 TSPOT negative: 11/2021 Assessment & Plan (01/25/2023 9:31 AM OPTICAL INSTRUMENT SPECIALIST): Hepatitis panel negative; 11/2021 TSPOT negative: 11/2021 Assessment & Plan (12/29/2022 11:51 AM OPTICAL INSTRUMENT SPECIALIST): Hepatitis panel negative; 11/2021 TSPOT negative: 11/2021 [...] 11/2021 Assessment & Plan (03/24/2022 10:42 AM OPTICAL INSTRUMENT SPECIALIST): Hepatitis panel negative; 11/2021 TSPOT negative: 11/2021 Assessment & Plan (01/20/2022 10:27 AM OPTICAL INSTRUMENT SPECIALIST): Hepatitis panel negative; 11/2021 TSPOT negative: 11/2021 [...] and Naprosyn. Medrol Dosepaks are not a superintendent terminal solution. As long as her kidney function [...] therapy at the pain management Center at [facility] Assessment & Plan (06/04/2021 12:51 PM CDT): [...] limited. Assessment & Plan (01/25/2023 9:32 AM OPTICAL INSTRUMENT SPECIALIST): Previously diagnosed by PCP. C/o diffuse generalized pain. S/e to gabapentin and lyrica so will defer restarting. Recently restarted venlafaxine per PCP for anxiety. Remains on fluoxetine but was increased to 60mg daily per psych. Additional medication options are limited. Assessment & Plan (12/29/2022 11:50 AM OPTICAL INSTRUMENT SPECIALIST): Previously diagnosed by PCP. C/o diffuse generalized [...] PCP. Assessment & Plan (03/24/2022 10:42 AM OPTICAL INSTRUMENT SPECIALIST): Previously diagnosed by PCP. C/o diffuse generalized pain. S/e to gabapentin and lyrica so will defer restarting. Currently on venlafaxine and fluoxetine per PCP. Assessment & Plan (01/20/2022 10:27 AM OPTICAL INSTRUMENT SPECIALIST): Previously diagnosed by PCP. C/o diffuse generalized [...] dizziness. Assessment & Plan (02/17/2021 8:28 PM OPTICAL INSTRUMENT SPECIALIST): Add gabapentin at hs. Discussed increasing to 100mg bid over the coming week pending symptom improvement. Tremor 01/27/2021 Assessment & Plan (01/27/2021 9:30 AM OPTICAL INSTRUMENT SPECIALIST): Advised ct of head, eeg, referral to neurology Advised labs today - will notify her of results as they are available Syncope 01/27/2021 Assessment & Plan (02/17/2021 8:26 PM OPTICAL INSTRUMENT SPECIALIST): Has appt pending for cv that she will keep She will continue to not drive Assessment & Plan (01/27/2021 9:30 AM OPTICAL INSTRUMENT SPECIALIST): Advised no driving, climbing, or swimming Advised ct of head, eeg, referral to neurology Advised labs today - will notify her of results as they are available Plantar fasciitis, bilateral 11/04/2020 Assessment & Plan (11/04/2020 2:16 PM CDT): Will continue with care per illuminator Thrombophlebitis of superfic ial veins of right [...] 10/08/2020 Assessment & Plan (12/30/2020 8:38 PM OPTICAL INSTRUMENT SPECIALIST): Decrease maxzide due to hyponatremia Repeat bmp in the next week Assessment & Plan (10/08/2020 6:08 PM CDT): Continue with care per ent We discussed as she has a current rx for valium that we cannot provide her with another at the current time. We discussed that if her ent discontinues writing it for her that pending review of [place] embroidery assistant we can further discuss a prescription. Paradoxical vocal fold motion disorder Assessment & Plan (09/12/2020 11:02 AM CDT): I have recommended laryngeal control therapy here at the [facility] in order [...] time Assessment & Plan (02/17/2021 8:25 PM OPTICAL INSTRUMENT SPECIALIST): Stable, continue meds same at this time Assessment & Plan (12/30/2020 8:40 PM OPTICAL INSTRUMENT SPECIALIST): Decrease prozac to 30mg daily Assessment & [...] needed. Assessment & Plan (12/30/2020 8:39 PM OPTICAL INSTRUMENT SPECIALIST): Continue with care per GI Due to [...] hematology. Assessment & Plan (12/30/2020 8:40 PM OPTICAL INSTRUMENT SPECIALIST): Has appt pending with heme/onc that she [...] this time. Will continue to follow-up with illuminator as planned. Anxiety 04/18/2020 Assessment & Plan (07/10/2022 6:53 PM CDT): As the patient's pain causes depression and depression worsens pain, she may benefit from speaking to a pain psychologist like 1 at the pain center at [facility]. Assessment & Plan (10/13/2021 12:47 PM CDT): Discontinue with xanax. Will restart valium bid/prn anxiety or dizziness. Assessment & Plan (06/04/2021 12:49 PM CDT): Will add a prn xanax as she has discontinued valium. Assessment & Plan (02/17/2021 8:28 PM OPTICAL INSTRUMENT SPECIALIST): Resume prn valium, advised not taking more than 10mg daily. Advised potential for addictiveness with valium and additionally for sedation as a side effect. She was advised caution on driving after taking due to sedation potential. Assessment & Plan (04/18/2020 10:23 AM OPTICAL INSTRUMENT SPECIALIST): Continue medication same at this time Rib pain on left side 04/18/2020 Assessment & Plan (04/18/2020 10:23 AM OPTICAL INSTRUMENT SPECIALIST): We reviewed ct chest, abdominal us. She will continue to exercise 4x/week for 30min each session. Gastric polyp 04/18/2020 Assessment & Plan (04/18/2020 10:23 AM OPTICAL INSTRUMENT SPECIALIST): Continue with care per gi Lipoma of torso 04/18/2020 Assessment & Plan (04/18/2020 10:23 AM OPTICAL INSTRUMENT SPECIALIST): Will refer to gen surg to discuss further evaluation and treatment Abdominal pain 03/14/2020 Overview (03/14/2020): Added automatically from request for surgery [id number] Assessment & Plan (07/10/2022 6:50 PM CDT): [...] order and advised to take this to [facility] today. Change in bowel habits 03/14/2020 Overview (03/14/2020): Added automatically from request for surgery [id number] Assessment & Plan (04/02/2023 7:35 PM OPTICAL INSTRUMENT SPECIALIST): The patient was recently treated with a number of antibiotics and Cosentyx. Even though Cosentyx was discontinued in January, there is an association with triggering a inflammatory bowel disease type condition. We would like to check stool studies including calprotectin to evaluate an infection or inflammatory cause of her symptoms. Hoarseness of voice 02/19/2020 Assessment & Plan (03/20/2020 11:27 AM OPTICAL INSTRUMENT SPECIALIST): resolved Assessment & Plan (02/19/2020 12:54 PM OPTICAL INSTRUMENT SPECIALIST): Will send for covid test today. Will notify her of results as available. Advised her in the interim to report to er if worsening. Will start on proventil hfa and change aciphex to dexilant. Positive depression screening 11/14/2019 Assessment & Plan (03/20/2020 11:26 AM OPTICAL INSTRUMENT SPECIALIST): Continue with prozac. Will add buspar bid, discussed increasing pending response. Breast cyst, right 11/14/2019 Assessment & Plan (04/18/2020 10:22 AM OPTICAL INSTRUMENT SPECIALIST): Due for repeat imaging in the next [...] 10/16/2019 Assessment & Plan (02/17/2021 8:27 PM OPTICAL INSTRUMENT SPECIALIST): Encouraged heart healthy diet and exercise Assessment & Plan (05/10/2020 8:33 AM CDT): Obesity is unchanged. Discussed the patient's BMI. The BMI is above average. BMI management plan is completed. BMI Follow-up includes: nutrition counseling, exercise counseling and education provided. Assessment & Plan (04/18/2020 7:47 AM OPTICAL INSTRUMENT SPECIALIST): Obesity is unchanged. Discussed the patient's BMI. 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 Will continue with care per gi. Assessment & Plan (03/20/2020 11:27 AM OPTICAL INSTRUMENT SPECIALIST): Continue with care and testing per GI. Assessment & Plan (02/19/2020 12:54 PM OPTICAL INSTRUMENT SPECIALIST): Will send for covid test today. Will [...] stimulator. Assessment & Plan (03/24/2022 10:43 AM OPTICAL INSTRUMENT SPECIALIST): XR L-spine and MRI L-spine revealed multilevel [...] Plan (10/16/2019 10:34 AM CDT): Managed by nut cracker via [facility] Osteoarthritis of hip 03/13/2015 Resolved [...] provided Assessment & Plan (03/13/2022 8:16 AM OPTICAL INSTRUMENT SPECIALIST): Obesity is unchanged. Discussed the patient's BMI. [...] provided Assessment & Plan (03/13/2022 8:16 AM OPTICAL INSTRUMENT SPECIALIST): Obesity is unchanged. Discussed the patient's BMI. The BMI is above average. BMI management plan is completed. BMI Follow-up includes: nutrition counseling, exercise counseling and education provided. Rheumatoid arthritis involvi ng multiple sites with positive rheumatoid factor 03/13/2022 05/21/19 Obesity (BMI 30-39.9) 01/28/20222022 Assessment & Plan (01/28/2022 8:30 AM OPTICAL INSTRUMENT SPECIALIST): Obesity is unchanged. Discussed the patient's BMI. The BMI is above average. BMI management plan is completed. BMI Follow-up includes: nutrition counseling, exercise counseling and education provided. BMI 30.0-30.9,adult 01/28/2022 03/13/19 23 Assessment & Plan (01/28/2022 8:30 AM OPTICAL INSTRUMENT SPECIALIST): Obesity is unchanged. Discussed the patient's BMI. [...] and joint pain after starting Plavix following [place] s/p stent. Due to increased generalized pain [...] needed. Assessment & Plan (01/25/2023 9:31 AM OPTICAL INSTRUMENT SPECIALIST): Previously isloated APRIL 1:160 on AVISE with [...] needed Assessment & Plan (12/29/2022 11:49 AM OPTICAL INSTRUMENT SPECIALIST): Previously isloated APRIL 1:160 on AVISE with [...] needed. Assessment & Plan (03/24/2022 10:41 AM OPTICAL INSTRUMENT SPECIALIST): Previously isloated APRIL 1:160 on AVISE with [...] psoriatic arthritis. Will continue humira 40mg SQ [id number]. Recent labs reviewed. Follow up in 4 months. Sooner if needed. Assessment & Plan (01/20/2022 10:29 AM OPTICAL INSTRUMENT SPECIALIST): Previously isloated APRIL 1:160 on AVISE with [...] a spondyloarthropathy. Will continue humira 40mg SQ [id number] and give this more time to take [...] starting. Will start approval of Humira 40mg [id number]. Patient advised of the side effects of [...] Blankenship. Assessment & Plan (04/29/2021 5:04 PM OPTICAL INSTRUMENT SPECIALIST): US right hand/wrist (04/21/21): Small grade 1 [...] Blankenship. Assessment & Plan (04/14/2021 5:31 PM OPTICAL INSTRUMENT SPECIALIST): 70-year-old female with PMHx of FM, gout, [...] 08/20/2021 Assessment & Plan (01/27/2021 9:30 AM OPTICAL INSTRUMENT SPECIALIST): Advised ct of head, referral to neurology Advised labs today - will notify her of results as they are available Acute cystitis without hematuria 12/17/2020 06/12/2021 Assessment & Plan (12/30/2020 8:40 PM OPTICAL INSTRUMENT SPECIALIST): resolved Assessment & Plan (12/17/2020 11:07 AM [...] 22 Assessment & Plan (12/30/2020 8:38 PM OPTICAL INSTRUMENT SPECIALIST): Obesity is unchanged. Discussed the patient's BMI. [...] 11/04/2020 Assessment & Plan (04/18/2020 10:22 AM OPTICAL INSTRUMENT SPECIALIST): Resolved. We reviewed recent labs. Continue medication [...] planned Assessment & Plan (03/20/2020 11:26 AM OPTICAL INSTRUMENT SPECIALIST): Continue with care and testing per GI. Retrieve CT from [facility]. Will evaluate further with abdominal US and labs. Hypokalemia 03/20/2020 11/04/2020 Assessment & Plan (08/29/2020 12:31 PM CDT): Seen on labs at [facility]. Repeat potassium level this week Assessment & Plan (04/18/2020 10:22 AM OPTICAL INSTRUMENT SPECIALIST): Resolved. We reviewed recent labs. Continue medication same at this time. Assessment & Plan (03/20/2020 11:27 AM OPTICAL INSTRUMENT SPECIALIST): Will reevaluate on labs. Discussed likely resolved as she has stopped the diazide. Cough 02/19/2020 08/20/2021 Assessment & Plan (03/20/2020 11:27 AM OPTICAL INSTRUMENT SPECIALIST): resolved Assessment & Plan (02/19/2020 12:54 PM OPTICAL INSTRUMENT SPECIALIST): Will send for covid test today. Will [...] constipation. Assessment & Plan (03/24/2019 4:08 PM OPTICAL INSTRUMENT SPECIALIST): Improved with diet modification and as neededlaxatives Gastroesophageal reflux dise ase with esophagitis 07/26/2018 05/08/2021 Overview (07/26/2018): Added automatically from request for surgery [id number] Assessment & Plan (11/09/2019 7:29 PM CDT): Unfortunately Dexilant remains a plan exclusion. She can try and get this through [facility]. Alternatively we could offer her Carafate in conjunction with AcipHex. Assessment & Plan (10/16/2019 10:34 AM CDT): Managed by gastroenterology Assessment & Plan (03/24/2019 4:07 PM OPTICAL INSTRUMENT SPECIALIST): Patient's symptoms her currently manageable with every [...] on file Legal Sex Female 5:33 AM OPTICAL INSTRUMENT SPECIALIST Gender Identity Not on file Sexual Orientation [...] CDT Respiratory Rate 20 04/25/2024 8:41 AM OPTICAL INSTRUMENT SPECIALIST Oxygen Saturation 96% 05/05/2024 9:49 AM CDT Inhaled Oxygen Concentration - - Weight 64.9 kg (143 lb) 05/05/2024 9:49 AM CDT Height 147.3 cm (4' 10 ) 05/05/2024 9:49 AM CDT Body Mass Index 29.89 05/05/2024 9:49 AM CDT Plan of Treatment Not on file Medical Devices Implanted Type Area Senior Ui Ux Designer Device Identifier Shelf Expiration Date Model / Serial / Lot R-Hip 2014 Right: Hip Procedures Procedure Name Priority Date/Time Associated Diagnosis Comments SD ARTHROCENTESIS ASPIR&/INJ MAJOR JT/BURSA W/US Routine 05/22/2024 [...] Read Routine (OP Routine) 04/25/2024 8:39 AM OPTICAL INSTRUMENT SPECIALIST Lumbar spondylosis Lumbar facet arthropathy URINE CULTURE Routine 04/10/2024 9:40 AM OPTICAL INSTRUMENT SPECIALIST Dysuria POCT URINALYSIS, AUTO W/O SCOPE Routine 04/10/2024 9:34 AM OPTICAL INSTRUMENT SPECIALIST Dysuria DIAGNOSTIC MAMMOGRAM Schedule Routine, Read Routine (OP Routine) 11/05/2023 3:39 PM CDT HEPATITIS PANEL, ACUTE Routine 12/22/2021 11:17 AM CDT Fatigue, unspecified type HM DEXA SCAN Routine 11/13/2020 COLONOSCOPY 03/25/2020 1:48 PM OPTICAL INSTRUMENT SPECIALIST from Last 3 Months or Most Recently Relevant to Health Maintenance Results * SD ARTHROCENTESIS ASPIR&/INJ MAJOR JT/BURSA W/US (05/22/2024 1:00 [...] PROCEDURES Final Re sult Performing Organization Address [facility] de Phone Number [email or web address] * SCAN - RADIOLOGY/IMAGING (05/08/2024 1:49 PM CDT) Anatomical Region Laterality Modality Other Tashia GRAHAM Final Result * SCAN - RADIOLOGY/IMAGING (05/03/2024) Anatomical Region Laterality Modality Other Provider Scanning Final Result * IR Medial Branch Block Lumbar Sacral First Level Bilateral (aka MBB) (04/25/2024 8:39 AM OPTICAL INSTRUMENT SPECIALIST) Narrative RAD_PACS[facility] - 04/25/2024 8:39 AM OPTICAL INSTRUMENT SPECIALIST The images from this study are not interpreted by Radiology. Please refer to the physician's procedure / OR operative note. Nilesh Dos Santos MD G IR PROCEDURES Final Re sult Performing Organization Address [facility] de Phone Number [email or web address] * (ABNORMAL) Urine culture Urine, clean voided (04/10/2024 9:40 AM OPTICAL INSTRUMENT SPECIALIST) Urine culture (A) Observe MedicalRony Alba Comment: CULTURE, URINE, ROUTINE Micro Number: [id number] Test Status: Final Specimen Source: Urine, clean [...] Comments Urine, clean voided 04/10/2024 9:40 AM OPTICAL INSTRUMENT SPECIALIST 04/11/2024 4:20 AM OPTICAL INSTRUMENT SPECIALIST Anjelica Huntley NP LAB MICROBIOLOGY - GENERAL OR DERABLES Final Result [facility] [address] [place] [address] * (ABNORMAL) POCT UA, AUTO W/O SCOPE (04/10/2024 9:34 AM OPTICAL INSTRUMENT SPECIALIST) Color, Urine, POC Yellow Clarity, ur, POC Cloudy(A) Clear Glucose, ur, POC Negative Negative MG/DL Bilirubin, ur, POC Negative Negative, Small, Moderate, Large Ketones, ur, POC Negative Negative Specific [place], POC 1.015 1.003 - 1.030 Blood, ur, POC Negative Negative pH, ur, POC 7.5 5.0 - 8.0 Protein, ur, POC Negative Negative Urobilinogen, Urine, POC 0.2 mg/dL Leukocytes, ur, POC Small(A) Negative Nitrite, ur, POC Negative Negative Appearance, fld Cloudy(A) Clear Urine 04/10/2024 9:34 AM OPTICAL INSTRUMENT SPECIALIST Anjelica Huntley NP POINT OF CARE TEST ORDERABLES Final Result * Diagnostic Mammogram (11/05/2023 3:39 PM CDT) Anatomical Region Laterality Modality Breast Mammography Historical Provider MD GUO MAMMO PROCEDURES Ca l Result * Hepatitis panel, acute (12/22/2021 11:17 AM CDT) Hep A IgM NON-REACTI VE NON-REACT JUSTICE [facility] Comment: For additional information, please refer to http://education.[employer]/faq/SNP421 (This link is being provided for informational/ [...] a test for HCV RNA (test code 60858) is suggested. For additional information please refer to http://education.[employer]/faq/IZK58m3 (This link is being provided for informational/ educational purposes only.) Blood 12/22/2021 11:1 7 AM CDT 12/22/2021 11:18 AM CDT [facility] MICROBIOLOGY - NERAL ORDERABLES Final Result [facility] [address] [place] [address] * DEXA SCAN (11/13/2020) Historical Provider HEALTH MAINTENANCE Edited Result - Final * COLONOSCOPY (03/25/2020 1:48 PM OPTICAL INSTRUMENT SPECIALIST) Anatomical Region Laterality Modality Other Narrative Procedure Note Joseph Guillaume MD PhD - 03/25/2020 1:48 PM CST ENDOSCOPY LAB Patient Name: Maggi De Leon Procedure Date: 03/25/2020 1:48 PM Date of : 1950 Admit Type: Outpatient Age: 69 Gender: Female Attending MD: Joseph Guillaume MD,PHD Room: [facility] ENDOSCOPY ROOM 03 Note Status: Finalized [...] The scope was passed under direct vision.The [id number] was introduced through the anuswith the intention of advancing to the ileum. The scopewas advanced to the sigmoid colon before the procedurewas aborted. Medications were given. The scope waspassed under direct vision. The [id number] was introduced through the anus and advanced [...] During normal business hours - [facility]: [phone]. After hours, evening, nights, weekends and holidays- Please call the hospital winchman/crane operator at and ask for the GI fellow security installation technician. Attending Participation: I personally performed the entire procedure. Electronically signed by Joseph Guillaume MD. Joseph Guillaume MD, PHD 03/25/2020 2:32:06 PM Number of Addenda: 0 Note Initiated On: 03/25/2020 1:48 PM Joseph Guillaume MD PhD ENDOSCOPY PROCEDURES Ca l Result from Last 3 Months or Most Recently Relevant to Health Maintenance Insurance MEDICARE FOR LIFE MEDICARE [facility] Address: [address] [address] [place] [address] FOR LIFE MEDICARE [facility] Address: [address] [address] [place] [address] [place] [address] FOR LIFE MEDICARE [facility] Address: [address] [address] [place] [address] Advance Directives For more information, please contact: [phone] * Full Code (Latest Code Status on File) Date Activated Date Inactivated Comments 03/25/2020 11:54 AM 03/25/2020 7:31 PM * Full Code Date Activated Date Inactivated Comments 08/04/2018 10:36 AM 08/04/2018 5:07 PM Care Teams Alumina Refinery Operator Relationship Specialty Start Date End Date Anjelica Huntley NP [address] [facility] [address] [place] [address] PCP - General Internal Medicine 06/10/22 Buzz Blankenship MD [address] [facility] [address] [place] [address] Consulting Physician Rheumatology 04/14/21
--- OUTSIDE RECORDS SUMMARY | 2024-05-25 11:17 | XMS_ITS | Encounter Summary ---
Author Organization [facility] Healthcare Address [address] [place] [address] Care Team Providers Care Senior Recruiter Name Role Phone Buzz Blankenship MD Unavailable [phone] Anjelica Huntley NP Primary Care Provider [phone] Encounter Details Date Type Department Care Team (Late st Contact Info) Description 2022 Telephone [address] [facility] [address] [place] [address] Emili Goode, RT Social History Tobacco [...] on file Legal Sex Female 5:33 AM REAMER HAND Gender Identity Not on file Sexual Orientation [...] Time Diarrhea 03/30/2023 03/30/2023 04/13/2023 3:06 AM REAMER HAND documented as of this encounter Care Teams Senior Recruiter Relationship Specialty Start Date End Date Anjelica Huntley NP [address] [facility] 500 [place] [address] PCP - General Internal Medicine 06/10/22 Buzz Blankenship MD [address] [facility] 110 [place] [address] Consulting Physician Rheumatology 04/14/21 documented as of this encounter
--- OUTSIDE RECORDS SUMMARY | 2024-05-25 11:17 | XMS_ITS | Encounter Summary ---
Author Organization [facility] Address [address] [place] [address] Phone Care Team Providers Care Grinder And Plater Name Role Phone Era Espinoza MD Primary Care Provider + [phone] Era Espinoza MD Primary Care Provider + [phone] Unknown, Notinfile Primary Care Provider Unavail Annamaria Farooq Primary Care Provider [phone] Buzz Blankenship MD Unavailable [phone] Anjelica Huntley NP Primary Care Provider [phone] Anjelica Huntley FERN GATHERER Primary Care Provider [phone] Encounter Details Date Type Department Care Team [...] on file Legal Sex Female 5:33 AM TEST BORER Gender Identity Not on file Sexual Orientation [...] COVID: Suspected 02/19/2020 02/19/2020 02/19/2020 12:10 PM TEST BORER COVID: Suspected 02/19/2020 02/19/2020 02/21/2020 2:47 PM TEST BORER Respiratory Infection (RANDAL), contact + droplet Comment:Automatically added due to negative COVID-19 result. 02/21/2020 02/21/2020 03/06/2020 3:0 7 AM TEST BORER Diarrhea 03/30/2023 03/30/2023 04/13/2023 3:06 AM TEST BORER documented as of this encounter Care Teams Grinder And Plater Relationship Specialty Start Date End Date Era Espinoza MD PCP - General Family Practice 11/22/17 03/07/19 Era Espinoza MD PCP - General Family Practice 03/08/19 10/10/19 Unknown, Notinfile PCP - General 10/11/19 10/15/19 Annamaria Bates PA PCP - General Microphone Operator 10/16/19 12/01/21 Anjelica Huntley FERN GATHERER [address] [place] [address] PCP - General Internal Medicine 12/02/21 06/09/22 Anjelica Huntley NP [address] [facility] 500 [place] [address] PCP - General Internal Medicine 06/10/22 Buzz Blankenship MD [address] [place] [address] Consulting Physician Rheumatology 04/14/21 documented as of this encounter
--- OUTSIDE RECORDS SUMMARY | 2024-05-25 11:17 | XMS_ITS | Encounter Summary ---
Author Organization [facility] Address [address] [place] [address] Phone Care Team Providers Care Physical Education Department Chair Name Role Phone Buzz Blankenship MD Unavailable [phone] Anjelica Huntley NP Primary Care Provider [phone] Encounter Details Date Type Department Care Team (Late st Contact Info) Description 05/16/2024 Results Follow-Up [facility] Orthopaedic Surgery [address] [facility] 2nd Floor [address] [place] [address] Nilesh Dos Santos MD [address] [facility] [address] [place] [address] Social History Tobacco Use Types [...] on file Legal Sex Female 5:33 AM SALESPERSON FASHION ACCESSORIES Gender Identity Not on file Sexual Orientation [...] on filedocumented in this encounter Care Teams Physical Education Department Chair Relationship Specialty Start Date End Date Anjelica Huntley NP [address] [place] [address] PCP - General Internal Medicine 06/10/22 Buzz Blankenship MD [address] [place] [address] Consulting Physician Rheumatology 04/14/21 documented as of this encounter
--- OUTSIDE RECORDS SUMMARY | 2024-05-25 11:17 | XMS_ITS | Encounter Summary ---
Author Organization [facility] Address [address] [place] [address] Phone Care Team Providers Care Photographic Press Screwmaker Name Role Phone Buzz Blankenship MD Unavailable [phone] Anjelica Huntley NP Primary Care Provider [phone] Encounter Details Date Type Department Care Team (Late st Contact Info) Description 05/08/2024 Results Follow-Up [facility] [address] [place] [address] Tashia Kirk PA [address] [place] [address] Social History Tobacco Use Types [...] on file Legal Sex Female 5:33 AM BOTTOM TURNING LATHE TENDER Gender Identity Not on file Sexual Orientation [...] on filedocumented in this encounter Care Teams Photographic Press Screwmaker Relationship Specialty Start Date End Date Anjelica Huntley NP [address] [facility] 500 [place] [address] PCP - General Internal Medicine 06/10/22 Buzz Blankenship MD [address] [facility] 110 [place] [address] Consulting Physician Rheumatology 04/14/21 documented as of this encounter
--- OUTSIDE RECORDS SUMMARY | 2024-05-25 11:17 | XMS_ITS | Encounter Summary ---
Author Organization [facility] Healthcare Address [address] [place] [address] Care Team Providers Care Rayon Coner Name Role Phone Annamaria Bates Primary Care Provider [phone] Buzz Blankenship MD Unavailable [phone] Anjelica Huntley TOWER CRANE OPERATOR Primary Care Provider [phone] Anjelica Huntley TOWER CRANE OPERATOR Primary Care Provider [phone] Encounter Details Date Type Department Care Team (Late st Contact Info) Description 05/28/2021 Telephone MOB4 Radiology [address] [facility] [address] [place] [address] Whitley De Jesus, RT Social [...] on file Legal Sex Female 5:33 AM SILK SCREEN OPERATOR Gender Identity Not on file Sexual Orientation [...] Time Diarrhea 03/30/2023 03/30/2023 04/13/2023 3:06 AM SILK SCREEN OPERATOR documented as of this encounter Care Teams Rayon Coner Relationship Specialty Start Date End Date Annamaria Bates PA PCP - General Grocery Team Member 10/16/19 12/01/21 Anjelica Huntley NP [address] [place] [address] PCP - General Internal Medicine 12/02/21 06/09/22 Anjelica Huntley NP [address] [place] [address] PCP - General Internal Medicine 06/10/22 Buzz Blankenship MD [address] [place] [address] Consulting Physician Rheumatology 04/14/21 documented as of this encounter
--- OUTSIDE RECORDS SUMMARY | 2024-05-25 11:17 | XMS_ITS | Encounter Summary ---
Author Organization [facility] Address [address] [place] [address] Phone Care Team Providers Care Final Tester Name Role Phone Era Espinoza MD Primary Care Provider [phone] Era Espinoza MD Primary Care Provider [phone] Unknown, Notinfile Primary Care Provider Unavail Annamaria Farooq Primary Care Provider [phone] Buzz Blankenship MD Unavailable [phone] Anjelica Huntley NP Primary Care Provider [phone] Anjelica Huntley NP Primary Care Provider [phone] Encounter Details Date Type Department Care Team (Late st Contact Info) Description 07/28/2018 Orders Only [facility] Scanning, Provider Social History Tobacco Use Types Packs/Day Years Used Date Smoking Tobacco: Never Smokeless Tobacco: Never Alcohol Use Standard Drinks/Week Comments No 0 (1 standard drink = 0.6 oz pur e alcohol) Comments Unknown Sex and Gender Information Value Date Recorded Sex Assigned at Not on file Legal Sex Female 5:33 AM SHIPPING AND RECEIVING CLERK Gender Identity Not on file Sexual Orientation [...] COVID: Suspected 02/19/2020 02/19/2020 02/19/2020 12:10 PM SHIPPING AND RECEIVING CLERK COVID: Suspected 02/19/2020 02/19/2020 02/21/2020 2:47 PM SHIPPING AND RECEIVING CLERK Respiratory Infection (RANDAL), contact + droplet Comment:Automatically added due to negative COVID-19 result. 02/21/2020 02/21/2020 03/06/2020 3:0 7 AM SHIPPING AND RECEIVING CLERK Diarrhea 03/30/2023 03/30/2023 04/13/2023 3:06 AM SHIPPING AND RECEIVING CLERK documented as of this encounter Care Teams Final Tester Relationship Specialty Start Date End Date Era Espinoza MD PCP - General Family Practice 11/22/17 03/07/19 Era Espinoza MD PCP - General Family Practice 03/08/19 10/10/19 Unknown, Notinfile PCP - General 10/11/19 10/15/19 Annamaria Bates PA PCP - General Metal Numerical Control Programmer 10/16/19 12/01/21 Anjelica Huntley DAMAGE ADJUSTER [address] [facility] [address] [place] [address] PCP - General Internal Medicine 12/02/21 06/09/22 Anjelica Huntley DAMAGE ADJUSTER [address] [facility] [address] [place] [address] PCP - General Internal Medicine 06/10/22 Buzz Blankenship MD [address] [facility] [facility] [address] [place] [address] Consulting Physician Rheumatology 04/14/21 documented as of this encounter
--- OUTSIDE RECORDS SUMMARY | 2024-05-25 11:17 | XMS_ITS | Encounter Summary ---
Author Organization [facility] Healthcare Address [address] [place] [address] Care Team Providers Care Motor Vehicle Licence Examiner Name Role Phone Buzz Blankenship MD Unavailable [phone] Anjelica Huntley NP Primary Care Provider [phone] Encounter Details Date Type Department Care Team (Late st Contact Info) Description 04/13/2024 Results Follow-Up [facility] Medical Group Internal Medicine at [place] [address] [place] [address] Anjelica Huntley NP [address] [place] [address] Social History Tobacco Use Types [...] on file Legal Sex Female 5:33 AM COMPLIANCE ADMINISTRATOR Gender Identity Not on file Sexual Orientation Not on file Occupation Industry Job Start Date Job End Date Retired Not on file Not on file Not on file documented as of this encounter Plan of Treatment Not on file documented as of this encounter Visit Diagnoses Not on filedocumented in this encounter Care Teams Motor Vehicle Licence Examiner Relationship Specialty Start Date End Date Anjelica Huntley, CENTRIFUGAL CHILLER TECHNICIAN [address] [facility] 500 [place] [address] PCP - General Internal Medicine 06/10/22 Buzz Blankenship MD [address] [facility] 110 [place] [address] Consulting Physician Rheumatology 04/14/21 documented as of this encounter
--- OUTSIDE RECORDS SUMMARY | 2024-05-25 11:17 | XMS_ITS | Encounter Summary ---
Author Organization [facility] Address [address] [place] [address] Phone Care Team Providers Care Customer Support Assistant Name Role Phone Era Espinoza MD Primary Care Provider + [phone] Era Espinoza MD Primary Care Provider [phone] Unknown, Notinfile Primary Care Provider Unavail Annamaria Farooq Primary Care Provider [phone] Buzz Blankenship MD Unavailable [phone] Anjelica Huntley NP Primary Care Provider [phone] Anjelica Huntley NP Primary Care Provider [phone] Encounter Details Date Type Department Care Team [...] on file Legal Sex Female 5:33 AM HATCHERY SUPERVISOR Gender Identity Not on file Sexual [...] COVID: Suspected 02/19/2020 02/19/2020 02/19/2020 12:10 PM HATCHERY SUPERVISOR COVID: Suspected 02/19/2020 02/19/2020 02/21/2020 2:47 PM HATCHERY SUPERVISOR Respiratory Infection (RANDAL), contact + droplet Comment:Automatically added due to negative COVID-19 result. 02/21/2020 02/21/2020 03/06/2020 3:0 7 AM HATCHERY SUPERVISOR Diarrhea 03/30/2023 03/30/2023 04/13/2023 3:06 AM HATCHERY SUPERVISOR documented as of this encounter Care Teams Customer Support Assistant Relationship Specialty Start Date End Date Era Espinoza MD PCP - General Family Practice 11/22/17 03/07/19 Era Espinoza MD PCP - General Family Practice 03/08/19 10/10/19 Unknown, Notinfile PCP - General 10/11/19 10/15/19 Annamaria Bates PA PCP - General Pug Mill Operator 10/16/19 12/01/21 Anjelica Huntley DAY HABILITATION SUPERVISOR [address] [facility] [address] [place] [address] PCP - General Internal Medicine 12/02/21 06/09/22 Anjelica Huntley DAY HABILITATION SUPERVISOR [address] [facility] [address] [place] [address] PCP - General Internal Medicine 06/10/22 Buzz Blankenship MD [address] [facility] [facility] [address] [place] [address] Consulting Physician Rheumatology 04/14/21 documented as of this encounter
--- OUTSIDE RECORDS SUMMARY | 2024-05-25 11:17 | XMS_ITS | Continuity of Care Document ---
Author Organization [facility] Address [address] [place] [address] Phone Care Team Providers Care Diamond Cleaver Name Role Phone Navid Srivastava MD Unavailable Unavailable Procedures Procedure Date Post-op Follow-up Visit Post-op Follow-up Visit After Cataract Laser Surgery Eye Exam & Treatment Corneal Pachymetry Advance Directives Directive Yes / No Effective Date File Name No Information Encounters Encounter Description Practice Location Reason(s) For Visit Diagnoses Date Provider Providers Copied on Encounter [facility], [id number] [place] [address] [address], [place], [place], [id number], tel:[phone] SEC David DALJIT Professional No Information 1 Atif Shoemaker. [address] [facility] [place] [id number], [place]. tel:[phone] Referring Provider: Navid Brown [address] [facility] [address], [place], [address] . tel:[phone] [facility], [address], [place], [place], [id number], tel:[phone] SEC David DALJIT Professional No Information 1 Atif Shoemaker. [address], [facility] [place], [id number], [place]. tel:[phone] Referring Provider: Navid Brown, [address] [facility] [place], [address] . tel:[phone] [facility], [address] [facility] [address], [place], [place], [id number], tel:[phone] SEC Craig [facility] Professional No Information Oct 3-201 1 Atif Shoemaker. [address] [facility], [facility] [place], [id number], . tel:[phone] Referring Provider: Navid Brown, [address] [facility] [place], [address] . tel:[phone] [facility], [address] [facility] [address], [place], [place], [address], tel:[phone] SEC David [facility] Professional No Information Oct-2 0-201 1 Atif Shoemaker. [address] [facility], [facility] [place], [id number], . tel:[phone] Referring Provider: Navid Brown, [address] [facility] [place], [address] . tel:[phone] Family History Family Member Type Diagnosis Age At Onset No Information Payers Payer name Insurance type Covered green party ID Authoriza tion(s) No Information Social History [...]
--- OUTSIDE RECORDS SUMMARY | 2024-05-25 11:17 | XMS_ITS | Clinical Summary ---
Author Organization [facility] Address [address] [place] [address] Care Team Providers Care Child Care Center Administrator Name Role Phone Unavailable Primary Care Provider Unavailabl e Allergies Active Allergy Reactions Criticality Noted Date Comments Diphenhydramine-Acetamin ophen Nausea and Vomiting Low 07/24/2019 Ezetimibe Muscle Pain Medium 03/21/2021 Hydrocodone Nausea and Vomiting Low 03/04/2020 Penicillins Swelling Medium 03/13/2015 Pregabalin Other (See Comments) Low 04/14/2022 Blurred vision Ygljldi-Xhf-Voi Reductase Inhibitors Muscle Pain Medium 03/21/2021 Tramadol [...] 2 Active fluticasone propionate (FLONASE) 50 mcg/spray [place], Suspension nasal inhaler 2 Active linaCLOtide (Linzess) [...] 2018 Insurance MEDICARE PART A AND B [employer]
--- OUTSIDE RECORDS SUMMARY | 2024-05-25 11:17 | XMS_ITS | Clinical Summary ---
Author Organization [facility] Address [address] [place] [address] Care Team Providers Care Poly Packer And Heat Sealer Name Role Phone Buzz Blankenship MD Unavailable [phone] Anjelica Huntley NP Primary Care Provider [phone] Allergies Active Allergy Reactions Criticality Noted Date [...] Dysuria 03/16/2023 Coronary artery disease invo lving [place] coronary artery of [place] heart without angina pectoris 03/09/2023 History of [...] 05/20/2022 Assessment & Plan (12/29/2022 11:49 AM SCREEN ROOM OPERATOR): Resolved with kenalog IM. Will defer restarting [...] 03/24/2022 Assessment & Plan (03/24/2022 10:44 AM SCREEN ROOM OPERATOR): Likely worsened by MTX which was stopped 01/2022. Recommend folic acid up to 3mg daily and biotin. Encouraged to discuss with her ui ux web developer as well. Primary insomnia 03/13/2022 Assessment & Plan (09/29/2023 9:19 AM CDT): This is a significant, separately identifiable problem that was evaluated and managed on the same day as the wellness exam Dyspnea on exertion 02/04/2022 Overview (02/04/2022): Patient O2 sat is 98%. She does complain of slight chest pressure and shortness of breath. Patient referred to the emergency department for further evaluation intermediate current use of therapeutic drug 2021 Overview (12/25/2021): TSPOT negative: 11/2021 Hepatitis panel negative: 11/2021 Assessment & Plan (10/19/2023 8:42 AM CDT): Hepatitis panel negative: 11/2021 TSPOT negative: 11/2021 Assessment & Plan (09/21/2023 11:22 AM CDT): Hepatitis panel negative: 11/2021 TSPOT negative: 11/2021 Assessment & Plan (01/25/2023 9:31 AM SCREEN ROOM OPERATOR): Hepatitis panel negative; 11/2021 TSPOT negative: 11/2021 Assessment & Plan (12/29/2022 11:51 AM SCREEN ROOM OPERATOR): Hepatitis panel negative; 11/2021 TSPOT negative: 11/2021 [...] 11/2021 Assessment & Plan (03/24/2022 10:42 AM SCREEN ROOM OPERATOR): Hepatitis panel negative; 11/2021 TSPOT negative: 11/2021 Assessment & Plan (01/20/2022 10:27 AM SCREEN ROOM OPERATOR): Hepatitis panel negative; 11/2021 TSPOT negative: 11/2021 [...] and Naprosyn. Medrol Dosepaks are not a skilled nursing solution. As long as her kidney function [...] therapy at the pain management Center at [facility] Assessment & Plan (06/04/2021 12:51 PM [...] limited. Assessment & Plan (01/25/2023 9:32 AM SCREEN ROOM OPERATOR): Previously diagnosed by PCP. C/o diffuse generalized pain. S/e to gabapentin and lyrica so will defer restarting. Recently restarted venlafaxine per PCP for anxiety. Remains on fluoxetine but was increased to 60mg daily per psych. Additional medication options are limited. Assessment & Plan (12/29/2022 11:50 AM SCREEN ROOM OPERATOR): Previously diagnosed by PCP. C/o diffuse generalized [...] PCP. Assessment & Plan (03/24/2022 10:42 AM SCREEN ROOM OPERATOR): Previously diagnosed by PCP. C/o diffuse generalized pain. S/e to gabapentin and lyrica so will defer restarting. Currently on venlafaxine and fluoxetine per PCP. Assessment & Plan (01/20/2022 10:27 AM SCREEN ROOM OPERATOR): Previously diagnosed by PCP. C/o diffuse generalized [...] dizziness. Assessment & Plan (02/17/2021 8:28 PM SCREEN ROOM OPERATOR): Add gabapentin at hs. Discussed increasing to 100mg bid over the coming week pending symptom improvement. Tremor 01/27/2021 Assessment & Plan (01/27/2021 9:30 AM SCREEN ROOM OPERATOR): Advised ct of head, eeg, referral to neurology Advised labs today - will notify her of results as they are available Syncope 01/27/2021 Assessment & Plan (02/17/2021 8:26 PM SCREEN ROOM OPERATOR): Has appt pending for cv that she will keep She will continue to not drive Assessment & Plan (01/27/2021 9:30 AM SCREEN ROOM OPERATOR): Advised no driving, climbing, or swimming Advised ct of head, eeg, referral to neurology Advised labs today - will notify her of results as they are available Plantar fasciitis, bilateral 11/04/2020 Assessment & Plan (11/04/2020 2:16 PM CDT): Will continue with care per cigarette lighter repairer Thrombophlebitis of superfic ial veins of right [...] 10/08/2020 Assessment & Plan (12/30/2020 8:38 PM SCREEN ROOM OPERATOR): Decrease maxzide due to hyponatremia Repeat bmp in the next week Assessment & Plan (10/08/2020 6:08 PM CDT): Continue with care per ent We discussed as she has a current rx for valium that we cannot provide her with another at the current time. We discussed that if her ent discontinues writing it for her that pending review of il senior java web developer we can further discuss a prescription. Paradoxical vocal fold motion disorder Assessment & Plan (09/12/2020 11:02 AM CDT): I have recommended laryngeal control therapy here at the [facility] in order [...] time Assessment & Plan (02/17/2021 8:25 PM SCREEN ROOM OPERATOR): Stable, continue meds same at this time Assessment & Plan (12/30/2020 8:40 PM SCREEN ROOM OPERATOR): Decrease prozac to 30mg daily Assessment & [...] needed. Assessment & Plan (12/30/2020 8:39 PM SCREEN ROOM OPERATOR): Continue with care per GI Due to [...] hematology. Assessment & Plan (12/30/2020 8:40 PM SCREEN ROOM OPERATOR): Has appt pending with heme/onc that she [...] this time. Will continue to follow-up with cigarette lighter repairer as planned. Anxiety 04/18/2020 Assessment & Plan (07/10/2022 6:53 PM CDT): As the patient's pain causes depression and depression worsens pain, she may benefit from speaking to a pain psychologist like 1 at the pain center at [facility]. Assessment & Plan (10/13/2021 12:47 PM CDT): Discontinue with xanax. Will restart valium bid/prn anxiety or dizziness. Assessment & Plan (06/04/2021 12:49 PM CDT): Will add a prn xanax as she has discontinued valium. Assessment & Plan (02/17/2021 8:28 PM SCREEN ROOM OPERATOR): Resume prn valium, advised not taking more than 10mg daily. Advised potential for addictiveness with valium and additionally for sedation as a side effect. She was advised caution on driving after taking due to sedation potential. Assessment & Plan (04/18/2020 10:23 AM SCREEN ROOM OPERATOR): Continue medication same at this time Rib pain on left side 04/18/2020 Assessment & Plan (04/18/2020 10:23 AM SCREEN ROOM OPERATOR): We reviewed ct chest, abdominal us. She will continue to exercise 4x/week for 30min each session. Gastric polyp 04/18/2020 Assessment & Plan (04/18/2020 10:23 AM SCREEN ROOM OPERATOR): Continue with care per gi Lipoma of torso 04/18/2020 Assessment & Plan (04/18/2020 10:23 AM SCREEN ROOM OPERATOR): Will refer to gen surg to discuss further evaluation and treatment Abdominal pain 03/14/2020 Overview (03/14/2020): Added automatically from request for surgery [id number] Assessment & Plan (07/10/2022 6:50 PM CDT): [...] order and advised to take this to [facility] today. Change in bowel habits 03/14/2020 Overview (03/14/2020): Added automatically from request for surgery [id number] Assessment & Plan (04/02/2023 7:35 PM SCREEN ROOM OPERATOR): The patient was recently treated with a number of antibiotics and Cosentyx. Even though Cosentyx was discontinued in January, there is an association with triggering a inflammatory bowel disease type condition. We would like to check stool studies including calprotectin to evaluate an infection or inflammatory cause of her symptoms. Hoarseness of voice 02/19/2020 Assessment & Plan (03/20/2020 11:27 AM SCREEN ROOM OPERATOR): resolved Assessment & Plan (02/19/2020 12:54 PM SCREEN ROOM OPERATOR): Will send for covid test today. Will notify her of results as available. Advised her in the interim to report to er if worsening. Will start on proventil hfa and change aciphex to dexilant. Positive depression screening 11/14/2019 Assessment & Plan (03/20/2020 11:26 AM SCREEN ROOM OPERATOR): Continue with prozac. Will add buspar bid, discussed increasing pending response. Breast cyst, right 11/14/2019 Assessment & Plan (04/18/2020 10:22 AM SCREEN ROOM OPERATOR): Due for repeat imaging in the next [...] 10/16/2019 Assessment & Plan (02/17/2021 8:27 PM SCREEN ROOM OPERATOR): Encouraged heart healthy diet and exercise Assessment & Plan (05/10/2020 8:33 AM CDT): Obesity is unchanged. Discussed the patient's BMI. The BMI is above average. BMI management plan is completed. BMI Follow-up includes: nutrition counseling, exercise counseling and education provided. Assessment & Plan (04/18/2020 7:47 AM SCREEN ROOM OPERATOR): Obesity is unchanged. Discussed the patient's BMI. 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 Will continue with care per gi. Assessment & Plan (03/20/2020 11:27 AM SCREEN ROOM OPERATOR): Continue with care and testing per GI. Assessment & Plan (02/19/2020 12:54 PM SCREEN ROOM OPERATOR): Will send for covid test today. Will [...] stimulator. Assessment & Plan (03/24/2022 10:43 AM SCREEN ROOM OPERATOR): XR L-spine and MRI L-spine revealed multilevel [...] Plan (10/16/2019 10:34 AM CDT): Managed by water and sewer systems supervisor via [facility] Osteoarthritis of hip 03/13/2015 Resolved [...] provided Assessment & Plan (03/13/2022 8:16 AM SCREEN ROOM OPERATOR): Obesity is unchanged. Discussed the patient's BMI. [...] provided Assessment & Plan (03/13/2022 8:16 AM SCREEN ROOM OPERATOR): Obesity is unchanged. Discussed the patient's BMI. The BMI is above average. BMI management plan is completed. BMI Follow-up includes: nutrition counseling, exercise counseling and education provided. Rheumatoid arthritis involvi ng multiple sites with positive rheumatoid factor 03/13/2022 05/21/19 Obesity (BMI 30-39.9) 01/28/20222022 Assessment & Plan (01/28/2022 8:30 AM SCREEN ROOM OPERATOR): Obesity is unchanged. Discussed the patient's BMI. The BMI is above average. BMI management plan is completed. BMI Follow-up includes: nutrition counseling, exercise counseling and education provided. BMI 30.0-30.9,adult 01/28/2022 03/13/19 23 Assessment & Plan (01/28/2022 8:30 AM SCREEN ROOM OPERATOR): Obesity is unchanged. Discussed the patient's BMI. [...] and joint pain after starting Plavix following [place] s/p stent. Due to increased generalized pain [...] needed. Assessment & Plan (01/25/2023 9:31 AM SCREEN ROOM OPERATOR): Previously isloated APRIL 1:160 on AVISE with [...] needed Assessment & Plan (12/29/2022 11:49 AM SCREEN ROOM OPERATOR): Previously isloated APRIL 1:160 on AVISE with [...] needed. Assessment & Plan (03/24/2022 10:41 AM SCREEN ROOM OPERATOR): Previously isloated APRIL 1:160 on AVISE with [...] psoriatic arthritis. Will continue humira 40mg SQ [id number]. Recent labs reviewed. Follow up in 4 months. Sooner if needed. Assessment & Plan (01/20/2022 10:29 AM SCREEN ROOM OPERATOR): Previously isloated APRIL 1:160 on AVISE with [...] a spondyloarthropathy. Will continue humira 40mg SQ [id number] and give this more time to take [...] starting. Will start approval of Humira 40mg [id number]. Patient advised of the side effects of [...] Blankenship. Assessment & Plan (04/29/2021 5:04 PM SCREEN ROOM OPERATOR): US right hand/wrist (04/21/21): Small grade 1 [...] Blankenship. Assessment & Plan (04/14/2021 5:31 PM SCREEN ROOM OPERATOR): 70-year-old female with PMHx of FM, gout, [...] 08/20/2021 Assessment & Plan (01/27/2021 9:30 AM SCREEN ROOM OPERATOR): Advised ct of head, referral to neurology Advised labs today - will notify her of results as they are available Acute cystitis without hematuria 12/17/2020 06/12/2021 Assessment & Plan (12/30/2020 8:40 PM SCREEN ROOM OPERATOR): resolved Assessment & Plan (12/17/2020 11:07 AM [...] 22 Assessment & Plan (12/30/2020 8:38 PM SCREEN ROOM OPERATOR): Obesity is unchanged. Discussed the patient's BMI. [...] 11/04/2020 Assessment & Plan (04/18/2020 10:22 AM SCREEN ROOM OPERATOR): Resolved. We reviewed recent labs. Continue medication [...] planned Assessment & Plan (03/20/2020 11:26 AM SCREEN ROOM OPERATOR): Continue with care and testing per GI. Retrieve CT from [facility]. Will evaluate further with abdominal US and labs. Hypokalemia 03/20/2020 11/04/2020 Assessment & Plan (08/29/2020 12:31 PM CDT): Seen on labs at [facility]. Repeat potassium level this week Assessment & Plan (04/18/2020 10:22 AM SCREEN ROOM OPERATOR): Resolved. We reviewed recent labs. Continue medication same at this time. Assessment & Plan (03/20/2020 11:27 AM SCREEN ROOM OPERATOR): Will reevaluate on labs. Discussed likely resolved as she has stopped the diazide. Cough 02/19/2020 08/20/2021 Assessment & Plan (03/20/2020 11:27 AM SCREEN ROOM OPERATOR): resolved Assessment & Plan (02/19/2020 12:54 PM SCREEN ROOM OPERATOR): Will send for covid test today. Will [...] constipation. Assessment & Plan (03/24/2019 4:08 PM SCREEN ROOM OPERATOR): Improved with diet modification and as neededlaxatives Gastroesophageal reflux dise ase with esophagitis 07/26/2018 05/08/2021 Overview (07/26/2018): Added automatically from request for surgery [id number] Assessment & Plan (11/09/2019 7:29 PM CDT): Unfortunately Dexilant remains a plan exclusion. She can try and get this through [facility]. Alternatively we could offer her Carafate in conjunction with AcipHex. Assessment & Plan (10/16/2019 10:34 AM CDT): Managed by gastroenterology Assessment & Plan (03/24/2019 4:07 PM SCREEN ROOM OPERATOR): Patient's symptoms her currently manageable with every [...] Description 05/22/2024 1:00 PM CDT Ancillary Procedure [facility] [address] 1st [address] [place] [address] Arrived 05/22/2024 1:00 PM CDT Procedure visit [facility] [address] 1[address] [place] [address] Mario Aj MD Primary osteoarthritis of both knees 05/19/2024 8:46 AM CDT - 05/19/2024 11:59 PM CDT Hospital Encounter [facility] [address] [facility] [facility] [address] [place] [address] Nilesh Dos Santos MD Primary osteoarthritis of left hip; Left hip pain Discharge Disposition: Discharge to home or self care 05/17/2024 Telephone Radiology - [address] [place] [address] Radha Fox RT 05/17/2024 Orders Only [facility] [address] 2nd [address] [place] [address] Nilesh Dos Santos MD Primary osteoarthritis of left hip (Primary Dx); Left hip pain 05/16/2024 9:40 AM CDT - 05/16/2024 11:59 PM CDT Hospital Encounter [facility] [address] [place] [address] Left hip pain Discharge Disposition: Discharge to home or self care 05/16/2024 8:45 AM CDT Office Visit [facility] [address] 2[address] [place] [address] Nilesh Dos Santos MD Left hip pain (Primary Dx); Primary osteoarthritis of left hip; Chronic sacroiliac joint pain; Lumbar facet joint pain; Lumbar spondylosis; Primary osteoarthritis involving multiple joints 05/16/2024 Results Follow-Up [facility] [address] [place] [address] 2nd Floor [address] [place] [address] Nilesh Dos Santos MD 05/12/2024 7:31 AM CDT - 05/12/2024 11:59 PM CDT Hospital Encounter [facility] [address] [facility] [address] [place] [address] Nilesh Dos Santos MD Chronic sacroiliac joint pain Discharge Disposition: Discharge to home or self care 05/11/2024 12:55 PM CDT - 05/11/2024 11:59 PM CDT Hospital Encounter [address] [phone] Localized primary osteoarthritis of carpometacarpal (CMC) joint of right wrist Discharge Disposition: Discharge to home or self care 05/11/2024 Orders Only [facility] [address] [place] [phone] Buzz Blankenship MD 05/09/2024 Telephone Radiology - [address] [facility] [address] [place] [address] Radha Fox RT 05/08/2024 Results Follow-Up [facility] [address] [place] [phone] Tashia Kirk PA 05/08/2024 Orders Only [facility] [address] [place] [phone] Tashia Kirk PA 05/05/2024 10:00 AM CDT Office Visit [facility] [place] [address] [place] [address] [address] [place] [address] Anjelica Huntley NP Weight gain (Primary Dx); BMI 29.0-29.9,adult; Primary insomnia 05/03/2024 9:15 AM CDT Office Visit [facility] [address] [place] [phone] Tashia Kirk PA Polyarthralgia (Primary Dx); Fibromyalgia; Pain of right hand; Localized primary osteoarthritis of carpometacarpal (CMC) joint of right wrist 05/03/2024 Orders Only [facility] [address] [place] [address] Scanning, Provider 05/02/2024 Orders Only [facility] [address] [place] [address] 2nd Floor [address] [place] [address] Nilesh Dos Santos MD Chronic sacroiliac joint pain (Primary Dx) 04/27/2024 Telephone [facility] [address] [facility] Medical Office Building [address] [place] [address] Francine Isaac LPN 04/26/2024 Telephone [facility] [address] [facility] 1st Floor [address] [place] [address] Mario Aj MD 04/25/2024 7:57 AM SCREEN ROOM OPERATOR - 04/25/2024 11:59 PM SCREEN ROOM OPERATOR Hospital Encounter [facility] [address] [place] [address] Gerald Woodard MD Lumbar spondylosis (Primary Dx); Lumbar facet arthropathy Discharge Disposition: Discharge to home or self care 04/19/2024 Telephone [facility] [address] [place] [address] 2nd [address] [place] [address] Justine Peraza, FERMÍN 04/13/2024 Results Follow-Up [facility] Medicine at [address] [place] [address] Anjelica Huntley, MARTA 04/10/2024 9:00 AM SCREEN ROOM OPERATOR Office Visit [facility] [place] [address] [place] [address] Rd [address] [place] [address] Anjelica Huntley, MARTA Dysuria (Primary Dx); BMI 28.0-28.9,adult; Left sided sciatica; Moderate persistent asthma without complication 03/31/2024 Telephone [facility] [address] [place] [address] Road [address] [place] [address] Anjelica Huntley, REFRIGERATION HOUSEMAN 03/27/2024 Telephone [facility] [address] [place] [address] Road [address] [place] [address] Anjelica Huntley, REFRIGERATION HOUSEMAN 03/24/2024 Telephone [facility] [address] [place] [address] [address] [place] [address] Nilesh Dos Santos MD 03/21/2024 Orders Only [facility] [address] [place] [address] [address]nd [address] [place] [address] Nilesh Dos Santos MD Lumbar spondylosis; Lumbar facet arthropathy 03/10/2024 Telephone [facility] [address] [place] [address] [address] [place] [address] Francine Isaac LPN 03/09/2024 Orders Only [facility] [address] [place] [address] 1st Floor [address] [place] [address] Mario Aj MD Primary osteoarthritis of both knees (Primary Dx) 03/06/2024 Telephone [facility] [address] [place] [address] 1st [address] [place] [address] Mario Aj MD 03/02/2024 Orders Only [facility] [address] [facility] Office Building [address] [place] [address] Nilesh Dos Santos MD 02/28/2024 Telephone [facility] [address] [facility] Office Building [address] [place] [address] Nilesh Dos Santos MD from Last 3 [...] ed with meds Palpitations Fibromyalgia possibly-to see Crusher Operator PFO (patent foramen ovale) Low back pain Fibromyalgia Osteoarthritis Osteoporosis 2020 Cataract CAD (coronary artery disease) 02/20/2023 NSTEMI (non-ST elevated myoc ardial infarction) ([facility]) 02/20/2023 Family History Medical History [...] (Added by TW Conv) Mental illness Mother Poppy Stroke Mother Poppy Family history of cerebrovascular [...] on file Legal Sex Female 5:33 AM SCREEN ROOM OPERATOR Gender Identity Not on file Sexual [...] CDT Respiratory Rate 20 04/25/2024 8:41 AM SCREEN ROOM OPERATOR Oxygen Saturation 96% 05/05/2024 9:49 AM CDT [...] 65+ Discontinued Medical Devices Implanted Type Area Electrical Accessories Assembler Device Identifier Shelf Expiration Date Model / Serial / Lot R-Hip 2014 Right: Hip Procedures Procedure Name Priority Date/Time Associated Diagnosis Comments DE ARTHROCENTESIS ASPIR&/INJ MAJOR JT/BURSA W/US Routine 05/22/2024 [...] Read Routine (OP Routine) 04/25/2024 8:39 AM SCREEN ROOM OPERATOR Lumbar spondylosis Lumbar facet arthropathy URINE CULTURE Routine 04/10/2024 9:40 AM SCREEN ROOM OPERATOR Dysuria POCT URINALYSIS, AUTO W/O SCOPE Routine 04/10/2024 9:34 AM SCREEN ROOM OPERATOR Dysuria DIAGNOSTIC MAMMOGRAM Schedule Routine, Read Routine (OP Routine) 11/05/2023 3:39 PM CDT HEPATITIS PANEL, ACUTE Routine 12/22/2021 11:17 AM CDT Fatigue, unspecified type DEXA SCAN Routine 11/13/2020 COLONOSCOPY 03/25/2020 1:48 PM SCREEN ROOM OPERATOR from Last 3 Months or Most Recently Relevant to Health Maintenance Results * DE ARTHROCENTESIS ASPIR&/INJ MAJOR JT/BURSA W/US (05/22/2024 1:00 [...] MAJOR JOINT (05/22/2024 12:57 PM CDT) Narrative [facility] - 05/22/2024 12:57 PM CDT This procedure [...] FLUOROSCOPY PROCEDURES Final Result Performing Organization Address [facility]/ZIP Co de Phone Number [facility] * XR [...] PROCEDURES Final Re sult Performing Organization Address [facility] de Phone Number [email or web address] * SCAN - RADIOLOGY/IMAGING (05/08/2024 1:49 PM CDT) Anatomical Region Laterality Modality Other Tashia GRAHAM Final Result * SCAN - RADIOLOGY/IMAGING (05/03/2024) Anatomical Region Laterality Modality Other Provider Scanning Final Result * IR Medial Branch Block Lumbar Sacral First Level Bilateral (aka MBB) (04/25/2024 8:39 AM SCREEN ROOM OPERATOR) Narrative [facility] - 04/25/2024 8:39 AM SCREEN ROOM OPERATOR The images from this study are not interpreted by Radiology. Please refer to the physician's procedure / OR operative note. Nilesh Dos Santos MD IMG IR PROCEDURES Final Re sult Performing Organization Address [facility] Co de Phone Number [facility] * (ABNORMAL) Urine culture Urine, clean voided (04/10/2024 9:40 AM SCREEN ROOM OPERATOR) Urine culture (A) [facility] Comment: CULTURE, URINE, ROUTINE Micro Number: [id number] Test Status: Final Specimen Source: Urine, clean [...] Comments Urine, clean voided 04/10/2024 9:40 AM SCREEN ROOM OPERATOR 04/11/2024 4:20 AM SCREEN ROOM OPERATOR Anjelica Huntley NP LAB MICROBIOLOGY - GENERAL OR DERABLES Final Result Performing Organization Address City/State/[facility] Co de Phone Number [employer], Inc.[facility] [address] [place] [address] * (ABNORMAL) POCT UA, AUTO W/O SCOPE (04/10/2024 9:34 AM SCREEN ROOM OPERATOR) Color, Urine, POC Yellow Clarity, ur, POC Cloudy(A) Clear Glucose, ur, POC Negative Negative MG/DL Bilirubin, ur, POC Negative Negative, Small, Moderate, Large Ketones, ur, POC Negative Negative Specific [place], POC 1.015 1.003 - 1.030 Blood, ur, POC Negative Negative pH, ur, POC 7.5 5.0 - 8.0 Protein, ur, POC Negative Negative Urobilinogen, Urine, POC 0.2 mg/dL Leukocytes, ur, POC Small(A) Negative Nitrite, ur, POC Negative Negative Appearance, fld Cloudy(A) Clear Urine 04/10/2024 9:34 AM SCREEN ROOM OPERATOR Anjelica Huntley NP POINT OF CARE TEST ORDERABLES Final Result * Diagnostic Mammogram (11/05/2023 3:39 PM CDT) Anatomical Region Laterality Modality Breast Mammography Historical Provider MD GUO MAMMO PROCEDURES Ca l Result * Hepatitis panel, acute (12/22/2021 11:17 AM CDT) Hep A IgM NON-REACTI VE NON-REACT JUSTICE [facility] Comment: For additional information, please refer to http://Hymite.Lollipuff/faq/YCP014 (This link is being provided for informational/ [...] a test for HCV RNA (test code 31088) is suggested. For additional information please refer to http://Hymite.Lollipuff/faq/FHP38p0 (This link is being provided for informational/ educational purposes only.) Blood 12/22/2021 11:1 7 AM CDT 12/22/2021 11:18 AM CDT T[facility] MICROBIOLOGY - NERAL ORDERABLES Final Result [facility] [address] [place] [address] * DEXA SCAN (11/13/2020) Historical Provider [facility] MAINTENANCE Edited Result - Final * COLONOSCOPY (03/25/2020 1:48 PM SCREEN ROOM OPERATOR) Anatomical Region Laterality Modality Other Narrative Procedure Note Joseph Guillaume MD PhD - 03/25/2020 1:48 PM CST ENDOSCOPY LAB Patient Name: Maggi De Leon Procedure Date: 03/25/2020 1:48 PM Date of : 1950 Admit Type: Outpatient Age: 69 Gender: Female Attending MD: Joseph Guilalume MD,PHD Room: [facility] ENDOSCOPY ROOM 03 Note Status: Finalized Procedure: [...] The scope was passed under direct vision.The [id number] was introduced through the anuswith the intention of advancing to the ileum. The scopewas advanced to the sigmoid colon before the procedurewas aborted. Medications were given. The scope waspassed under direct vision. The [id number] was introduced through the anus and advanced [...] business hours - Please call theNurse Coordinator: [phone]. After hours, evening, nights, weekends and holidays- Please call the hospital core winder machine operator at and ask for the GI fellow admissions specialist. Attending Participation: I personally performed the entire procedure. Electronically signed by Joseph Guillaume MD. Joseph Guillaume MD, PHD 03/25/2020 2:32:06 PM Number of Addenda: 0 Note Initiated On: 03/25/2020 1:48 PM us Joseph Guillaume MD PhD ENDOSCOPY PROCEDURES Ca l Result from Last 3 Months or Most Recently Relevant to Health Maintenance Insurance FOR LIFE MEDICARE FOR LIFE MEDICARE [facility] Address: [facility] [address] [place] [address] FOR LIFE FOR LIFE MEDICARE Advance Directives For more information, please contact: [phone] * Full Code (Latest Code Status on File) Date Activated Date Inactivated Comments 03/25/2020 11:54 AM 03/25/2020 7:31 PM * Full Code Date Activated Date Inactivated Comments 08/04/2018 10:36 AM 08/04/2018 5:07 PM Care Teams Poly Packer And Heat Sealer Relationship Specialty Start Date End Date Anjelica Huntley NP [address] [place] [address] [address] [place] [address] PCP - General Internal Medicine 06/10/22 Buzz Blankenship MD [address] [facility] [address] [place] [address] Consulting Physician Rheumatology 04/14/21
--- OUTSIDE RECORDS SUMMARY | 2024-05-25 11:17 | XMS_ITS | Encounter Summary ---
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 [address] [place] [address] PCP - General Internal Medicine 06/10/22 Buzz Blankenship MD [address] [facility] [address] [place] [address] Consulting Physician Rheumatology 04/14/21 documented as of this encounter
--- OUTSIDE RECORDS SUMMARY | 2024-05-25 11:17 | XMS_ITS | CONTINUITY OF CARE DOCUMENT ---
Author Name rosita becker Address Unknown Organization [facility] Address [address] [facility] [address] [place] [address] Phone [phone] Care Team Providers Care Transformer Assembly Supervisor Name Role Phone Jonathan MONTENEGRO, Yang Unavailable [phone] INSURANCE PROVIDERS Payer name Policy type / Coverage type [place] red libertarian ID VICTORINA FREGOSO [id number]
--- OUTSIDE RECORDS SUMMARY | 2024-05-25 11:17 | XMS_ITS | Continuity of Care Document ---
Author Name [facility] Organization [facility] Care Team Providers Care Hvac Maintenance Technician Name Role Phone [facility] Unavailable Unavailable Medications Combined list of outpatient [...] Site Reaction Lot Number CVX Code Drug Utility Locate Technician Status Comments Source tuberculin purified protein derivative 2010 [id number] sanofi pasteur complet ed tuberculi n purified protein derivativ e 03/24/10 Given Ambulat ory Pharmac y tetanus, diphtheria, acellular pertu is 2009 zzLef t Arm [id number] 115 sanofi pasteur complet ed tetanus, diphtheri a, acellular pertussis 09/18/09 Given Ambulat ory Pharmac y Procedures Combined list of: 1) Procedures from Department of Veterans Affairs facilities going back up to thelast 18 months, not all [place] non-surgical procedures are included; 2) All procedures from the Department of [facility] facilities. Procedure Procedure Type Code Date Perfomer [...] at Department of Defense and Veterans Affairs ([place]).VA Functional [place] Measurement (FIM) Scale: 1 = Total Assistance (Subject = 0% +), 2 = Maximal Assistance (Subject = 25% +), 3 = Moderate Assistance (Subject = 50% +), 4 = Minimal Assistance (Subject = 75% +), 5 = Supervision, 6 = Modified [place] (Device), 7 = Complete [place] (Timely, Safely). Assessment Date/Time Source Assessment Type Assessment Skill Assessment Score Assessment Details No data available for this section
[2024-05-25] MEDS: ASPIRIN 81 MG CHEWABLE TABLET 243 MG PO (11:24)
[2024-05-25 11:25] VITALS: BP 154/61; PULSE 70; RESP 19; O2SAT 99
[2024-05-25 11:32] VITALS: BP 174/67; PULSE 67; RESP 10; O2SAT 97
[2024-05-25 11:46] VITALS: BP 156/67; PULSE 65; RESP 10; O2SAT 98
[2024-05-25 12:01] VITALS: BP 159/68; PULSE 66; RESP 12; O2SAT 98
--- NOTE | 2024-05-25 13:11 | ECG_ITS ---
Test Date: 2024-05-25 13:28:50 Measurements Intervals [place] Rate: 67 P: 28 MD: 167 QRS: 12 QRSD: 91 T: 10 QT: 414 QTc: 439 Interpretive Statements SINUS RHYTHM CONSIDER INFERIOR INFARCT, AGE INDETERMINATE BASELINE ARTIFACT- I, III, AVL ABNORMAL ECG Compared to ECG 05/25/2024 10:13:54 NO SIGNIFICANT CHANGE Electronically Signed On 05-25-2024 13:56:35 CDT by Rodrigue Singh D.O.
--- NOTE | 2024-05-25 14:01 | ED.GENADULT ---
HPI - General Adult General Chief complaint: Chest Pain Stated complaint: chest pressure Time Seen by Provider: 05/25/24 10:16 History of Present Illness HPI narrative: 73-year-old female presenting to the emergency department for evaluation for left leg pain and intermittent chest pain. Patient reports that yesterday she was having chest pain and from 06/28 a.m. she is having some headache. At this time of evaluation patient denies any chest pressure, chest pain headache. Patient is still having some left leg pain that she describes as posterior calf Related Data Home Medications ?Medication ?Instructions ?Recorded ?Confirmed ?Last Taken ?Type glucosamine sulf dipot 1 cap PO DAILY 02/26/20 02/06/24 02/26/20 09:00 History chlr,msm,chond 550 mg-C 30 mg-denisa 1 mg capsule (Glucosamine Chondroitin) folic acid 1 mg tablet 1 mg PO DAILY 11/29/21 02/06/24 Unknown History linaclotide 72 mcg capsule 72 mcg PO DAILY 11/29/21 02/06/24 Unknown History (Linzess) trazodone 50 mg tablet 50 mg PO DAILY 05/20/22 08/28/23 Unknown History triamterene 37.5 1 tablet PO DAILY 05/20/22 02/06/24 Unknown History mg-hydrochlorothiazide 25 mg tablet alprazolam 0.25 mg tablet 0.25 mg PO BID 06/08/22 02/06/24 Unknown History fluoxetine 40 mg capsule 40 mg PO DAILY 02/20/23 02/06/24 Unknown History linaclotide 145 mcg capsule 145 mcg PO .QD 02/06/24 02/06/24 Unknown History (Linzess) Allergies Allergy/AdvReac Type Severity Reaction Status Date / Time Penicillins Allergy Severe swelling Verified 05/25/24 10:06 eyes oxycodone AdvReac Intermediate n/v, Verified 05/25/24 10:06 dizziness pregabalin (From Lyrica) AdvReac Intermediate Dizziness Verified 05/25/24 10:06 tramadol AdvReac Intermediate n/v, Verified 05/25/24 10:06 dizziness Review of Systems Review of Systems: All systems reviewed & are unremarkable except as noted in HPI and below PMFSH Past Medical History Medical History Hypertension Dyslipidemia Gastroesophageal reflux disease Degenerative disc disease Diverticulosis Anxiety Depression Arthritis Generalized; primarily in knees and hips. Endometriosis Rectal polyp Seasonal allergies Meniere's disease Surgical History Surgical History History of total abdominal hysterectomy and bilateral salpingo-oophorectomy History of excision of pilonidal cyst History of cholecystectomy History of right hip replacement History of 3 sections Family History Family History Mother Hypertension Cerebrovascular accident Hyperlipidemia Sibling Diabetes mellitus Social History Social History Social History: Surrogate medical decision maker: Toribio Kamara, spouse. Code status: Full code. Smoking status: Never smoker Alcohol intake: never Substance use: never Substance use type: does not use Do You Feel Safe in your Home?: Yes Lack of Transportation: No Lack of Food: Never True Current Housing: I Have Housing Concerned About Future Housing: No Difficulty Paying Gas/Electric Bills: No Difficulty Paying for Meds: No Currently Unemployed: No Education: Associate Degree Difficulty w/ Childcare or Family Care: No Additional living arrangements comments: . Lives with spouse in [place]. They have 4 children. Additional occupation/education comments: Retired from the [employer]. Spiritual care concerns: No Exam Narrative: APPEARANCE: Well appearing, no pain, no distress, well-nourished. HEAD: normocephalic, atraumatic. EYES: PERRLA/EOMI, conjunctivae clear. NOSE: Normal no drainage EARS:TMS clear with good light reflex. THROAT: Pharynx clear, no exudate. NECK: Supple. No adenopathy, no masses. RESPIRATORY: Airway patent, respirations nonlabored. Clear to auscultation bilaterally, no rales, rhonchi, wheezing. CARDIOVASCULAR: Regular rate and rhythm without murmurs rubs or gallops. ABDOMINAL: Soft, nontender, nondistended, normal bowel sounds MUSCULOSKELETAL: Posterior left calf tenderness to palpation NEURO: Alert. Cranial nerves II through XII intact. Good gait. Good coordination SKIN: Warm, dry. Normal Color Course Vital Signs Vital signs: Vital Signs Temperature 97.0 F L 05/25/24 10:10 Pulse Rate 72 05/25/24 10:10 Respiratory Rate 12 05/25/24 10:10 Blood Pressure 150/63 H 05/25/24 10:10 Pulse Oximetry 100 05/25/24 10:10 Oxygen Delivery Room Air 05/25/24 10:10 Temperature 97.0 F L 05/25/24 10:10 Pulse Rate 66 05/25/24 12:01 Respiratory Rate 12 05/25/24 12:01 Blood Pressure 159/68 H 05/25/24 12:01 Pulse Oximetry 98 05/25/24 12:01 Oxygen Delivery Room Air 05/25/24 10:18 Medical Decision Making MDM Narrative Medical decision making narrative: 73-year-old female presents emergency department for evaluation for intermittent chest pressure and left lower leg pain. Patient is currently afebrile with a leukocytosis of 12.8 and hemoglobin of 13.6. Patient has no active bleeding. INR 0.9. Patient does have a sodium 133, potassium 3.2 chloride of 96, serial troponins were negative. Pro BNP was not significantly elevated patient was negative for influenza RSV and for COVID. Patient does have a suspected thrombus of the left peroneal vein. I discussed the case with the primary care physician and she did wish to have the patient started on Eliquis and she will see the patient as outpatient. Patient family updated the results of the workup plan for start her on Eliquis. All questions concerns were addressed. Differential Diagnosis Differential Diagnosis: DVT, superficial thrombophlebitis, ACS, pneumonia, pulmonary edema Vital Signs Vital Signs: Vital Signs Temperature 97.0 F L 05/25/24 10:10 Pulse Rate 72 05/25/24 10:10 Respiratory Rate 12 05/25/24 10:10 Blood Pressure 150/63 H 05/25/24 10:10 Pulse Oximetry 100 05/25/24 10:10 Oxygen Delivery Room Air 05/25/24 10:10 Temperature 97.0 F L 05/25/24 10:10 Pulse Rate 66 05/25/24 12:01 Respiratory Rate 12 05/25/24 12:01 Blood Pressure 159/68 H 05/25/24 12:01 Pulse Oximetry 98 05/25/24 12:01 Oxygen Delivery Room Air 05/25/24 10:18 Lab Data Lab results reviewed: Yes I reviewed the patient's lab results. 05/25/24 10:31 05/25/24 10:31 Labs: Lab Results 05/25/24 05/25/24 Range/Units 10:31 13:45 WBC 12.8 H (4.5-10.0) K/mm3 RBC 4.33 (4.2-5.4) M/mm3 Hgb 13.6 (12.0-15.0) g/dL Hct 39.9 (37.0-47.0) % MCV 92.1 (80-100) fl MCH 31.4 (26-34) pg MCHC 34.1 (32-36) g/dl RDW 13.3 (11.5-14.5) % Plt Count 410 H (150-375) k/mm3 MPV 9.3 (7.4-10.4) fl Immature Gran % (Auto) 1.1 H (0-0.5) % Neut % (Auto) 70.8 (45.5-73.1) % Lymph % (Auto) 18.6 (18.3-44.2) % Glenn % (Auto) 9.2 H (2.6-8.5) % Eos % (Auto) 0.1 (0-4.4) % Baso % (Auto) 0.2 (0.2-1.2) % Lymph # (Auto) 2.38 (0.9-3.2) K/mm3 Glenn # (Auto) 1.2 H (0.1-0.6) K/mm3 Eos # (Auto) 0.0 (0-0.3) K/mm3 Baso # (Auto) 0.0 (0.0-0.1) K/mm3 Abs Immat Gran (auto) 0.14 H (0.00-0.031) K/mm3 Absolute Neuts (auto) 9.1 H (1.3-6.7) K/mm3 Absolute Nucleated RBC 0.000 (0.0-0.012) K/mm3 Nucleated RBC % 0.0 (0.0-0.2) % PT 12.7 (11.1-14.7) Seconds INR 0.9 APTT 21.7 L (22.3-36.8) Seconds Sodium 133 L (137-145) mmol/L Potassium 3.2 L (3.4-5.0) mmol/L Chloride 96 L (98-107) mmol/L Carbon Dioxide 29 (22-30) mmol/L Anion Gap 8 (4-12) mmol/L BUN 16 (7-17) mg/dL Creatinine 0.86 (0.7-1.0) mg/dL Estim Creat Clear Calc Not Reportable Estimated GFR > 60 (59 - ) Glucose 102 (65-110) mg/dL Calcium 9.0 (8.4-10.2) mg/dL Total Bilirubin 0.5 (0.2-1.3) mg/dL AST 35 (14-36) U/L ALT 28 (6-35) U/L Alkaline Phosphatase 97 (38-126) U/L Troponin I < 0.012 < 0.012 (0.000-0.034) ng/mL NT-Pro-B Natriuret Pep 103 H (19.9-100) pg/mL Total Protein 7.0 (6.3-8.2) g/dL Albumin 4.1 (3.5-5.1) g/dL Lipase 270 (23-300) U/L Influenza A (RT-PCR) Negative (Negative) Influenza B (RT-PCR) Negative (Negative) RSV (RT-PCR) Negative (Negative) SARS-CoV-2 RNA (RT-PCR) Negative (Negative) Imaging Data Radiologist's impression: Impressions Chest X-Ray 05/25/24 10:54 Impression: Clear lungs. Venous Doppler Study 05/25/24 13:45 IMPRESSION: Noncompressibility and absence of flow within the left peroneal vein, as detailed above. Discharge Plan Discharge Clinical Impression: Acute deep vein thrombosis of peroneal vein Patient Disposition: Home, Self-Care Condition: Stable Instructions: Antibiotic Form, Deep Vein Thrombosis (DC) Additional Instructions: Your primary care physician was updated on the results of your ultrasound showing a thrombus in the peroneal vein. You will be started Eliquis. Have close follow-up with your primary care physician. If you have any worsening symptoms and please call or return to the emergency department. Patient Language: Irish Prescriptions: New Eliquis DVT-PE Treat 30D Start 5 mg (74 tabs) tablets,dose pack See Rx Instructions .ROUTE .COMPLEX Qty: 74 0RF Rx Instructions: orally per package directions No Action folic acid 1 mg tablet 1 mg PO DAILY Linzess 72 mcg capsule 72 mcg PO DAILY trazodone 50 mg tablet 50 mg PO DAILY triamterene-hydrochlorothiazid 37.5-25 mg tablet 1 tablet PO DAILY nitrofurantoin monohyd/m-cryst [Macrobid] 100 mg capsule 100 mg PO Q12H 5 Days Qty: 10 0RF Rx Instructions: must administer with a meal/food nystatin-triamcinolone 100,000-0.1 unit/g-% cream 1 applic topical BID 14 Days Qty: 60 0RF sulfamethoxazole-trimethoprim [Bactrim DS] 800-160 mg tablet 1 tablet PO Q12H 7 Days Qty: 14 0RF alprazolam 0.25 mg tablet 0.25 mg PO BID Linzess 145 mcg capsule 145 mcg PO .QD sulfamethoxazole-trimethoprim [Bactrim DS] 800-160 mg tablet 1 tablet PO Q12H 7 Days Qty: 14 0RF metronidazole 500 mg tablet 500 mg PO Q8H 7 Days Qty: 21 0RF chlorhexidine gluconate [Hibiclens] 4 % liquid 1 applic topical ONCE 7 Days Qty: 118 0RF fluoxetine 40 mg capsule 40 mg PO DAILY aspirin 81 mg Tablet,Delayed Release (Dr/Ec) 81 mg PO QAM Qty: 90 3RF Glucosamine Chondroitin 550-30-1 mg Capsule 1 cap PO DAILY Follow-up/Referrals: Audi,MARTA Dejesus [Primary Care Provider] -
[2024-05-25 14:23] LABS: Troponin I < 0.012 ng/mL (0.000-0.034)
== END 2024-05-25 14:42 | disposition home or self-care (01) ==
PROVIDERS: Emergency Provider Emergency Medicine; PCP Nurse Practitioner Family
DX: I10 Essential (primary) hypertension (principal); E78.5 Hyperlipidemia, unspecified; I82.452 Acute embolism and thrombosis of left peroneal vein; Z20.822 Contact with and (suspected) exposure to COVID-19
CPT/HCPCS: 36415; 71046; 80053; 83690; 83880; 84484; 85025; 85610; 85730; 87637; 93005; 93971; 99284; A9270

== ENCOUNTER 2024-06-24 07:33 | Outpatient (CLI) | payer MEDICARE, OTHER, SELFPAY ==
--- NOTE | ~2024-06-24 | US_ITS ---
EXAMINATION: US venous doppler [facility] DATE: 06/24/2024 08:14 INDICATION: Left lower limb deep venous thrombosis TECHNIQUE: Grayscale ultrasound images without and with compression and Doppler ultrasound images of the left lower extremity veins were obtained. COMPARISON: 05/25/2024 FINDINGS: The visualized portions of left common femoral vein, profunda (deep) femoral vein, femoral vein, popl iteal vein, peroneal veins, posterior tibial veins, gastrocnemius vein and greater saphenous vein out flow are all now patent and compressible. IMPRESSION: 1. Interval resolution of prior venous thrombosis in the left peroneal vein. No deep venous thrombosi s in the left lower limb. Reviewed, dictated and finalized at location A. IMPRESSION: 1. Interval resolution of prior venous thrombosis in the left peroneal vein. No deep venous thrombosis in the left lower limb.
--- OUTSIDE RECORDS SUMMARY | 2024-06-24 15:50 | XMS_ITS | Encounter Summary ---
Author Organization [facility] Address [address] [place] [address] Phone Care Team Providers Care Forest Patrolman Name Role Phone Era Espinoza MD Primary Care Provider [phone] Era Espinoza MD Primary Care Provider [phone] Unknown, Notinfile Primary Care Provider Unavail Annamaria Farooq Primary Care Provider [phone] Buzz Blankenship MD Unavailable [phone] Anjelica Huntley NP Primary Care Provider [phone] Anjelica Huntley NP Primary Care Provider [phone] Encounter Details Date Type Department Care Team [...] on file Legal Sex Female 5:[address] JUSTICE Gender Identity Not on file Sexual Orientation [...] COVID: Suspected 02/19/2020 02/19/2020 02/19/2020 12:[address] JUSTICE COVID: Suspected 02/19/2020 02/19/2020 02/21/2020 2:[address] JUSTICE Respiratory Infection (RANDAL), contact + droplet Comment:Automatically added due to negative COVID-19 result. 02/21/2020 02/21/2020 03/06/2020 3:[address] JUSTICE Diarrhea 03/30/2023 03/30/2023 04/13/2023 3:[address] JUSTICE documented as of this encounter Care Teams Forest Patrolman Relationship Specialty Start Date End Date Era Espinoza MD PCP - General Family Practice 11/22/17 03/07/19 Era Espinoza MD PCP - General Family Practice 03/08/19 10/10/19 Unknown, Notinfile PCP - General 10/11/19 10/15/19 Annamaria Bates PA PCP - General Solar Installer 10/16/19 12/01/21 Anjelica Huntley BREAKFAST BAR ATTENDANT [address] [facility] [address] [place] [address] PCP - General Internal Medicine 12/02/21 06/09/22 Anjelica Huntley BREAKFAST BAR ATTENDANT [address] [facility] [address] [place] [address] PCP - General Internal Medicine 06/10/22 Buzz Blankenship MD [address] [facility] [facility] [address] [place] [address] Consulting Physician Rheumatology 04/14/21 documented as of this encounter
--- OUTSIDE RECORDS SUMMARY | 2024-06-24 15:50 | XMS_ITS | Continuity of Care Document ---
Author Organization [facility] Address [address] [place] [address] Phone Care Team Providers Care Employee Services Manager Name Role Phone Navid Srivastava MD Unavailable Unavailable Procedures Procedure Date Post-op Follow-up Visit Post-op Follow-up Visit After Cataract Laser Surgery Eye Exam & Treatment Corneal Pachymetry Advance Directives Directive Yes / No Effective Date File Name No Information Encounters Encounter Description Practice Location Reason(s) For Visit Diagnoses Date Provider Providers Copied on Encounter [facility], [id number] [place] [address] [address], [place], [place], [id number], tel:[phone] SEC David DALJIT Professional No Information 1 Atif Shoemaker. [address] [facility] [place] [address], [place]. tel:[phone] Referring Provider: Navid Brown [address] [facility] [address], [place], [address] . tel:[phone] [facility], [address], [place], [place], [address], tel:[phone] SEC Fulshear DALJIT Professional No Information 1 Atif Shoemaker. [address], [facility] [place], [address], [place]. tel:[phone] Referring Provider: Navid Brown, [address] [facility] [place], [address] . tel:[phone] [facility], [address] [facility] [address], [place], [place], [address], tel:[phone] SEC David DC Professional No Information Oct 3-201 1 Atif Shoemaker. [address] [facility], [facility] [place], [address], . tel:[phone] Referring Provider: Navid Brown, [address] [facility] [place], [address] . tel:[phone] [facility], [address] [facility], [place], [place], [address], tel:[phone] SEC Fulshear DC Professional No Information Oct-2 0-201 1 Atif Shoemaker. [address] [facility], [facility] [place], [id number], . tel:[phone] Referring Provider: Navid Brown, [address] [facility] [place], [address] . tel:[phone] Family History Family Member Type Diagnosis Age [...]
--- OUTSIDE RECORDS SUMMARY | 2024-06-24 15:50 | XMS_ITS | Encounter Summary ---
Author Organization [facility] Address [address] [place] [address] Phone Care Team Providers Care Ginner Helper Name Role Phone Buzz Blankenship MD Unavailable [phone] Anjelica Huntley NP Primary Care Provider [phone] Encounter Details Date Type Department Care Team (Late st Contact Info) Description 05/08/2024 Results Follow-Up [facility] [address] [place] [address] Tashia Kirk PA [address] [place] [address] Social History Tobacco Use Types [...] on file Legal Sex Female 5:33 AM [employer] Gender Identity Not on file Sexual Orientation [...] on filedocumented in this encounter Care Teams Ginner Helper Relationship Specialty Start Date End Date Anjelica Huntley NP [address] [facility] [address] [place] [address] PCP - General Internal Medicine 06/10/22 Buzz Blankenship MD [address] [facility] [address] [place] [address] Consulting Physician Rheumatology 04/14/21 documented as of this encounter
--- OUTSIDE RECORDS SUMMARY | 2024-06-24 15:50 | XMS_ITS | Clinical Summary ---
Author Organization [facility] Address [address] [place] [address] Care Team Providers Care Endodontic Assistant Name Role Phone Buzz Blankenship MD Unavailable [phone] Anjelica Huntley NP Primary Care Provider [phone] Allergies Active Allergy Reactions Criticality Noted Date Comments Bempedoic Acid Other (See comments) Low 11/29/2023 Muscle ache Hydrochlorothiazide Other (See comments) Low 04/20/2012 Hydrocodone Nausea & Vomiting,Dizziness ,Headache,Vomiting Low 05/26/2011 Pregabalin Other (See comments),Agitatio n Low 10/13/2021 Blurred vision Pain Medicine Vomiting Low 07/24/2019 Penicillins Swelling Medium 03/13/2015 Jcktarn-Baz-Ffc Reductase Inhibitors Muscle pain Medium 03/21/2021 Medications aspirin 81 mg enteric coated tablet [...] DAY 48 mL 1 12/22/19 24 Active ondansetron (ZOFRAN) 4 mg tablet [...] Active Additional Information Patient not taking.Reported on 05/30/2024 naloxone (NARCAN) 4 mg/actuation spray,non-aeros ol Administer [...] anxiety 60 tablet 2 03/29/[address] (NexIUM) 40 mg capsule TAKE 1 CAPSULE DAILY BEFORE BREAKFAST 90 capsule 1 05/18/19 25 Active Eliquis DVT-PE Treat 30D Start 5 mg (74 tabs) tablets,dose pack TAKE BY MOUTH PER PACKAGE DIRECTIONS 05/27/19 25 Active traMADoL (ULTRAM) 50 mg tablet Take 1 tablet (50 mg total) by mouth 2 (two) times a day for 14 days 28 tablet 01/05/20 24 2024 Discontinued(P atient Reported) semaglutide (Wegovy) 0.25 mg/0.5 mL auto-injectorIn dications:Weigh t gain Inject 0.25 mg under the skin every 7 days 3 mL 1 03/14/20 25 2024 Discontinued amitriptyline (ELAVIL) 25 mg tabletIndicatio ns:Primary insomnia Take 1 tablet (25 mg total) by mouth nightly for 20 days 30 tablet 1 05/06/19 25 2024 Discontinued(P atient Reported) nystatin-triamc inolone cream APPLY 1 APPLICATION TOPICALLY TWICE A DAY X 14 DAYS 03/27/19 25 2024 Discontinued(P atient Reported) Active Problems Problem Noted Date Diagnosed Date Mixed hyperlipidemia 05/30/2024 Pain of right hand 05/03/2024 Assessment & [...] and depression 09/25/2023 Generalized pain 08/23/2023 BMI 26.0-26.9,adult 03/16/2023 Dysuria 03/16/2023 Coronary artery disease invo lving samish coronary artery of samish heart without angina pectoris 03/09/2023 History of [...] 05/20/2022 Assessment & Plan (12/29/2022 11:49 AM PHOTO CARTOGRAPHER): Resolved with kenalog IM. Will defer restarting [...] 03/24/2022 Assessment & Plan (03/24/2022 10:44 AM PHOTO CARTOGRAPHER): Likely worsened by MTX which was stopped 01/2022. Recommend folic acid up to 3mg daily and biotin. Encouraged to discuss with her fitter hand as well. Primary insomnia 03/13/2022 Assessment & Plan (09/29/2023 9:19 AM CDT): This is a significant, separately identifiable problem that was evaluated and managed on the same day as the wellness exam Dyspnea on exertion 02/04/2022 Overview (02/04/2022): Patient O2 sat is 98%. She does complain of slight chest pressure and shortness of breath. Patient referred to the emergency department for further evaluation alf current use of therapeutic drug 2021 Overview (12/25/2021): TSPOT negative: 11/2021 Hepatitis panel negative: 11/2021 Assessment & Plan (10/19/2023 8:42 AM CDT): Hepatitis panel negative: 11/2021 TSPOT negative: 11/2021 Assessment & Plan (09/21/2023 11:22 AM CDT): Hepatitis panel negative: 11/2021 TSPOT negative: 11/2021 Assessment & Plan (01/25/2023 9:31 AM PHOTO CARTOGRAPHER): Hepatitis panel negative; 11/2021 TSPOT negative: 11/2021 Assessment & Plan (12/29/2022 11:51 AM PHOTO CARTOGRAPHER): Hepatitis panel negative; 11/2021 TSPOT negative: 11/2021 [...] 11/2021 Assessment & Plan (03/24/2022 10:42 AM PHOTO CARTOGRAPHER): Hepatitis panel negative; 11/2021 TSPOT negative: 11/2021 Assessment & Plan (01/20/2022 10:27 AM PHOTO CARTOGRAPHER): Hepatitis panel negative; 11/2021 TSPOT negative: 11/2021 [...] and Naprosyn. Medrol Dosepaks are not a terminal press operator solution. As long as her kidney function [...] therapy at the pain management Center at [facility] Assessment & Plan (06/04/2021 12:51 PM CDT): [...] limited. Assessment & Plan (01/25/2023 9:32 AM PHOTO CARTOGRAPHER): Previously diagnosed by PCP. C/o diffuse generalized pain. S/e to gabapentin and lyrica so will defer restarting. Recently restarted venlafaxine per PCP for anxiety. Remains on fluoxetine but was increased to 60mg daily per psych. Additional medication options are limited. Assessment & Plan (12/29/2022 11:50 AM PHOTO CARTOGRAPHER): Previously diagnosed by PCP. C/o diffuse generalized [...] PCP. Assessment & Plan (03/24/2022 10:42 AM PHOTO CARTOGRAPHER): Previously diagnosed by PCP. C/o diffuse generalized pain. S/e to gabapentin and lyrica so will defer restarting. Currently on venlafaxine and fluoxetine per PCP. Assessment & Plan (01/20/2022 10:27 AM PHOTO CARTOGRAPHER): Previously diagnosed by PCP. C/o diffuse generalized [...] dizziness. Assessment & Plan (02/17/2021 8:28 PM PHOTO CARTOGRAPHER): Add gabapentin at hs. Discussed increasing to 100mg bid over the coming week pending symptom improvement. Tremor 01/27/2021 Assessment & Plan (01/27/2021 9:30 AM PHOTO CARTOGRAPHER): Advised ct of head, eeg, referral to neurology Advised labs today - will notify her of results as they are available Syncope 01/27/2021 Assessment & Plan (02/17/2021 8:26 PM PHOTO CARTOGRAPHER): Has appt pending for cv that she will keep She will continue to not drive Assessment & Plan (01/27/2021 9:30 AM PHOTO CARTOGRAPHER): Advised no driving, climbing, or swimming Advised ct of head, eeg, referral to neurology Advised labs today - will notify her of results as they are available Plantar fasciitis, bilateral 11/04/2020 Assessment & Plan (11/04/2020 2:16 PM CDT): Will continue with care per program director cable television Thrombophlebitis of superfic ial veins of right lower extremity 11/04/2020 Assessment & Plan (11/04/2020 2:17 PM CDT): Advised warm compresses, RENETTA kwnog Advised resuming walking for exercise when plantar fasciitis is improved Osteoarthritis of knee 10/08/2020 Renal cyst 10/08/2020 Overview (11/04/2020): Left, 7mm. Assessment & Plan (11/04/2020 2:16 PM CDT): Will continue to monitor Assessment & Plan (10/08/2020 6:07 PM CDT): We reviewed abd imaging Will repeat US in 6mo to ensure stability Meniere's disease 10/08/2020 Assessment & Plan (12/30/2020 8:38 PM PHOTO CARTOGRAPHER): Decrease maxzide due to hyponatremia Repeat bmp in the next week Assessment & Plan (10/08/2020 6:08 PM CDT): Continue with care per ent We discussed as she has a current rx for valium that we cannot provide her with another at the current time. We discussed that if her ent discontinues writing it for her that pending review of [place] clothes marker we can further discuss a prescription. Paradoxical vocal fold motion disorder Assessment & Plan (09/12/2020 11:02 AM CDT): I have recommended laryngeal control therapy here at the [facility] in order [...] time Assessment & Plan (02/17/2021 8:25 PM PHOTO CARTOGRAPHER): Stable, continue meds same at this time Assessment & Plan (12/30/2020 8:40 PM PHOTO CARTOGRAPHER): Decrease prozac to 30mg daily Assessment & [...] needed. Assessment & Plan (12/30/2020 8:39 PM PHOTO CARTOGRAPHER): Continue with care per GI Due to [...] hematology. Assessment & Plan (12/30/2020 8:40 PM PHOTO CARTOGRAPHER): Has appt pending with heme/onc that she [...] this time. Will continue to follow-up with program director cable television as planned. Anxiety 04/18/2020 Assessment & Plan (07/10/2022 6:53 PM CDT): As the patient's pain causes depression and depression worsens pain, she may benefit from speaking to a pain psychologist like 1 at the pain center at [facility]. Assessment & Plan (10/13/2021 12:47 PM CDT): Discontinue with xanax. Will restart valium bid/prn anxiety or dizziness. Assessment & Plan (06/04/2021 12:49 PM CDT): Will add a prn xanax as she has discontinued valium. Assessment & Plan (02/17/2021 8:28 PM PHOTO CARTOGRAPHER): Resume prn valium, advised not taking more than 10mg daily. Advised potential for addictiveness with valium and additionally for sedation as a side effect. She was advised caution on driving after taking due to sedation potential. Assessment & Plan (04/18/2020 10:23 AM PHOTO CARTOGRAPHER): Continue medication same at this time Rib pain on left side 04/18/2020 Assessment & Plan (04/18/2020 10:23 AM PHOTO CARTOGRAPHER): We reviewed ct chest, abdominal us. She will continue to exercise 4x/week for 30min each session. Gastric polyp 04/18/2020 Assessment & Plan (04/18/2020 10:23 AM PHOTO CARTOGRAPHER): Continue with care per gi Lipoma of torso 04/18/2020 Assessment & Plan (04/18/2020 10:23 AM PHOTO CARTOGRAPHER): Will refer to gen surg to discuss further evaluation and treatment Abdominal pain 03/14/2020 Overview (03/14/2020): Added automatically from request for surgery [id number] Assessment & Plan (07/10/2022 6:50 PM CDT): [...] order and advised to take [facility] to [facility] today. Change in bowel habits 03/14/2020 Overview (03/14/2020): Added automatically from request for surgery [id number] Assessment & Plan (04/02/2023 7:35 PM PHOTO CARTOGRAPHER): The patient was recently treated with a number of antibiotics and Cosentyx. Even though Cosentyx was discontinued in January, there is an association with triggering a inflammatory bowel disease type condition. We would like to check stool studies including calprotectin to evaluate an infection or inflammatory cause of her symptoms. Hoarseness of voice 02/19/2020 Assessment & Plan (03/20/2020 11:27 AM PHOTO CARTOGRAPHER): resolved Assessment & Plan (02/19/2020 12:54 PM PHOTO CARTOGRAPHER): Will send for covid test today. Will notify her of results as available. Advised her in the interim to report to er if worsening. Will start on proventil hfa and change aciphex to dexilant. Positive depression screening 11/14/2019 Assessment & Plan (03/20/2020 11:26 AM PHOTO CARTOGRAPHER): Continue with prozac. Will add buspar bid, discussed increasing pending response. Breast cyst, right 11/14/2019 Assessment & Plan (04/18/2020 10:22 AM PHOTO CARTOGRAPHER): Due for repeat imaging in the next [...] from Zofran and we will refill this Diverticulosis 10/16/2019 Assessment & Plan (04/18/2020 10:22 AM PHOTO CARTOGRAPHER): Advised high fiber heart healthy diet Assessment & Plan (10/16/2019 10:35 AM CDT): will continue with high fiber diet, decreased nuts/seeds followed by refrigerating machine operator History of right hip replacement 10/16/2019 H/O abdominoplasty 10/16/2019 History of cholecystectomy 10/16/2019 S/P GOPI-BSO 10/16/2019 Sleep disturbance 10/16/2019 Overview (10/16/2019): will order sleep study to evaluate further Vitamin D deficiency 10/16/2019 Post-menopausal 10/16/2019 Encounter for Medicare annual wellness exam [...] available Assessment & Plan (03/24/2019 4:07 PM PHOTO CARTOGRAPHER): Controlled 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 Will continue with care per gi. Assessment & Plan (03/20/2020 11:27 AM PHOTO CARTOGRAPHER): Continue with care and testing per GI. Assessment & Plan (02/19/2020 12:54 PM PHOTO CARTOGRAPHER): Will send for covid test today. Will [...] stimulator. Assessment & Plan (03/24/2022 10:43 AM PHOTO CARTOGRAPHER): XR L-spine and MRI L-spine revealed multilevel [...] Plan (10/16/2019 10:34 AM CDT): Managed by steward racetrack via [facility] Osteoarthritis of hip 03/13/2015 Resolved [...] provided Assessment & Plan (03/13/2022 8:16 AM PHOTO CARTOGRAPHER): Obesity is unchanged. Discussed the patient's BMI. [...] provided Assessment & Plan (03/13/2022 8:16 AM PHOTO CARTOGRAPHER): Obesity is unchanged. Discussed the patient's BMI. The BMI is above average. BMI management plan is completed. BMI Follow-up includes: nutrition counseling, exercise counseling and education provided. Rheumatoid arthritis involvi ng multiple sites with positive rheumatoid factor 03/13/2022 05/21/19 23 Obesity (BMI 30-39.9) 01/28/20222022 Assessment & Plan (01/28/2022 8:30 AM PHOTO CARTOGRAPHER): Obesity is unchanged. Discussed the patient's BMI. The BMI is above average. BMI management plan is completed. BMI Follow-up includes: nutrition counseling, exercise counseling and education provided. BMI 30.0-30.9,adult 01/28/2022 03/13/19 23 Assessment & Plan (01/28/2022 8:30 AM PHOTO CARTOGRAPHER): Obesity is unchanged. Discussed the patient's BMI. The BMI is above average. BMI management plan is completed. BMI Follow-up includes: nutrition counseling, exercise counseling and education provided. BMI 29.0-29.9,adult 12/02/2021 01/29/20 Assessment & Plan (12/02/2021 2:24 PM CDT): [...] and joint pain after starting Plavix following MD s/p stent. Due to increased generalized pain [...] needed. Assessment & Plan (01/25/2023 9:31 AM PHOTO CARTOGRAPHER): Previously isloated APRIL 1:160 on AVISE with [...] needed Assessment & Plan (12/29/2022 11:49 AM PHOTO CARTOGRAPHER): Previously isloated APRIL 1:160 on AVISE with [...] well maintained on humira monotherapy however until [id number] when she noted onset of dry, itchy [...] needed. Assessment & Plan (03/24/2022 10:41 AM PHOTO CARTOGRAPHER): Previously isloated APRIL 1:160 on AVISE with [...] psoriatic arthritis. Will continue humira 40mg SQ [id number]. Recent labs reviewed. Follow up in 4 months. Sooner if needed. Assessment & Plan (01/20/2022 10:29 AM PHOTO CARTOGRAPHER): Previously isloated APRIL 1:160 on AVISE with [...] a spondyloarthropathy. Will continue humira 40mg SQ [id number] and give this more time to take [...] starting. Will start approval of Humira 40mg [id number]. Patient advised of the side effects of [...] Blankenship. Assessment & Plan (04/29/2021 5:04 PM PHOTO CARTOGRAPHER): US right hand/wrist (04/21/21): Small grade 1 [...] Blankenship. Assessment & Plan (04/14/2021 5:31 PM PHOTO CARTOGRAPHER): 70-year-old female with PMHx of FM, gout, [...] 08/20/2021 Assessment & Plan (01/27/2021 9:30 AM PHOTO CARTOGRAPHER): Advised ct of head, referral to neurology Advised labs today - will notify her of results as they are available Acute cystitis without hematuria 12/17/2020 06/12/2021 Assessment & Plan (12/30/2020 8:40 PM PHOTO CARTOGRAPHER): resolved Assessment & Plan (12/17/2020 11:07 AM [...] 22 Assessment & Plan (12/30/2020 8:38 PM PHOTO CARTOGRAPHER): Obesity is unchanged. Discussed the patient's BMI. [...] 11/04/2020 Assessment & Plan (04/18/2020 10:22 AM PHOTO CARTOGRAPHER): Resolved. We reviewed recent labs. Continue medication [...] planned Assessment & Plan (03/20/2020 11:26 AM PHOTO CARTOGRAPHER): Continue with care and testing per GI. Retrieve CT from [facility]. Will evaluate further with abdominal US and labs. Hypokalemia 03/20/2020 11/04/2020 Assessment & Plan (08/29/2020 12:31 PM CDT): Seen on labs at [facility]. Repeat potassium level this week Assessment & Plan (04/18/2020 10:22 AM PHOTO CARTOGRAPHER): Resolved. We reviewed recent labs. Continue medication same at this time. Assessment & Plan (03/20/2020 11:27 AM PHOTO CARTOGRAPHER): Will reevaluate on labs. Discussed likely resolved as she has stopped the diazide. Cough 02/19/2020 08/20/2021 Assessment & Plan (03/20/2020 11:27 AM PHOTO CARTOGRAPHER): resolved Assessment & Plan (02/19/2020 12:54 PM PHOTO CARTOGRAPHER): Will send for covid test today. Will [...] benefit from staying on a potassium regularly. BMI 29.0-29.9,adult 10/16/2019 05/31/19 25 Assessment & Plan (02/17/2021 8:27 PM PHOTO CARTOGRAPHER): Encouraged heart healthy diet and exercise Assessment & Plan (05/10/2020 8:33 AM CDT): Obesity is unchanged. Discussed the patient's BMI. The BMI is above average. BMI management plan is completed. BMI Follow-up includes: nutrition counseling, exercise counseling and education provided. Assessment & Plan (04/18/2020 7:47 AM PHOTO CARTOGRAPHER): Obesity is unchanged. Discussed the patient's BMI. [...] nutrition counseling, exercise counseling and education provided. Hyperglycemia 10/16/2019 08/20/2021 Assessment & Plan (10/16/2019 [...] constipation. Assessment & Plan (03/24/2019 4:08 PM PHOTO CARTOGRAPHER): Improved with diet modification and as neededlaxatives Gastroesophageal reflux dise ase with esophagitis 07/26/2018 05/08/2021 Overview (07/26/2018): Added automatically from request for surgery [id number] Assessment & Plan (11/09/2019 7:29 PM CDT): Unfortunately Dexilant remains a plan exclusion. She can try and get this through [facility] [place]. Alternatively we could offer her Carafate in conjunction with AcipHex. Assessment & Plan (10/16/2019 10:34 AM CDT): Managed by gastroenterology Assessment & Plan (03/24/2019 4:07 PM PHOTO CARTOGRAPHER): Patient's symptoms her currently manageable with every [...] Encounters Date Type Department Care Team Description 06/08/2024 Telephone [facility] Cardiology [address] [place] [address] Sergei Richards MD 06/05/2024 Telephone [facility] Family Medicine [address] [place] [address] Anjelica Huntley NP 05/30/2024 8:00 AM CDT Office Visit [facility] Medical Group Internal Medicine at [place] [address] [place] [address] Anjelica Huntley NP Weight gain (Primary Dx); BMI 26.0-26.9,adult; Mixed hyperlipidemia; Primary insomnia; Post-menopausal 05/29/2024 11:45 AM CDT Office Visit [facility] Medical [facility] Cardiology [address] [place] [address] Sergei Richards MD History of non-ST elevation myocardial infarction (NSTEMI) (Primary Dx); Essential hypertension; Coronary artery disease involving samish coronary artery of samish heart without angina pectoris; Pure hypercholesterolemia 05/26/2024 Orders Only [facility] Family Medicine [address] [place] [address] ProviderKota MD 05/22/2024 1:00 PM CDT Ancillary Procedure [facility] Orthopaedic Surgery [address] [place] [address] 05/22/2024 1:00 PM CDT Procedure visit [facility] Orthopaedic Surgery [address] 1[address] [place] [address] Mario Aj MD Primary osteoarthritis of both knees 05/19/2024 8:46 AM CDT - 05/19/2024 11:59 PM CDT Hospital Encounter [facility] Radiology [address] [place] [address] Nilesh Dos Santos MD Primary osteoarthritis of left hip; Left hip pain Discharge Disposition: Discharge to home or self care 05/17/2024 Telephone Radiology - [address] [place] [address] Radha Fox, 05/17/2024 Orders Only [facility] Orthopaedic Surgery [address] 2[address] [place] [address] Nilesh Dos Santos MD Primary osteoarthritis of left hip (Primary Dx); Left hip pain 05/16/2024 9:40 AM CDT - 05/16/2024 11:59 PM CDT Hospital Encounter [facility] Radiology at [facility] [address] [place] [address] Left hip pain Discharge Disposition: Discharge to home or self care 05/16/2024 8:45 AM CDT Office Visit [facility] Orthopaedic Surgery [address] [place] [address] [address] [place] [address] Nilesh Dos Santos MD Left hip pain (Primary Dx); Primary osteoarthritis of left hip; Chronic sacroiliac joint pain; Lumbar facet joint pain; Lumbar spondylosis; Primary osteoarthritis involving multiple joints 05/16/2024 Results Follow-Up [facility] Orthopaedic Surgery [address] [place] [address] 2[address] [place] [address] Nilesh Dos Santos MD 05/12/2024 7:31 AM CDT - 05/12/2024 11:59 PM CDT Hospital En[place] [facility] [address] [place] [address] Nilesh Dos Santos MD Chronic sacroiliac joint pain Discharge Disposition: Discharge to home or self care 05/11/2024 12:55 PM CDT - 05/11/2024 11:59 PM CDT Hospital Encounter [address] [phone] Localized primary osteoarthritis of carpometacarpal (CMC) joint of right wrist Discharge Disposition: Discharge to home or self care 05/11/2024 Orders Only [facility] [address] [place] [phone] Buzz Blankenship MD 05/09/2024 Telephone Radiology - [address] [place] [address] Radha Fox RT 05/08/2024 Results Follow-Up [address] [phone] Tashia Kirk PA 05/08/2024 Orders Only [facility] [address] [place] [phone] Tashia Kirk PA 05/05/2024 10:00 AM CDT Office Visit [facility] Medical Group Internal Medicine at [address] [place] [phone] Anjelica Huntley NP Weight gain (Primary Dx); BMI 29.0-29.9,adult; Primary insomnia 05/03/2024 9:15 AM CDT Office Visit [facility] [address] [place] [phone] Tashia Kirk PA Polyarthralgia (Primary Dx); Fibromyalgia; Pain of right hand; Localized primary osteoarthritis of carpometacarpal (CMC) joint of right wrist 05/03/2024 Orders Only [facility] Health Information Management [address] [place] [address] Scanning, Provider 05/02/2024 Orders Only [facility] Orthopaedic Surgery [address] [place] [address] [address] [place] [address] Nilesh Dos Santos MD Chronic sacroiliac joint pain (Primary Dx) 04/27/2024 Telephone [facility] Orthopaedic Surgery [address] Medical Office [address] [place] [address] Francine Isaac LPN 04/26/2024 Telephone [facility] Orthopaedic Surgery [address] 1[address] [place] [address] Mario Aj MD 04/25/2024 7:57 AM PHOTO CARTOGRAPHER - 04/25/2024 11:59 PM PHOTO CARTOGRAPHER Hospital Encounter [facility] Pain Management at [facility] [address] [place] [address] Gerald Woodard MD Lumbar spondylosis (Primary Dx); Lumbar facet arthropathy Discharge Disposition: Discharge to home or self care 04/19/2024 Telephone [facility] Orthopaedic Surgery [address] [place] [address] [address] [place] [phone] Justine Peraza CMA 04/13/2024 Results Follow-Up [facility] Medicine at [place] [address] [place] [address] Rd [address] [place] [phone] Anjelica Huntley NP 04/10/2024 9:00 AM PHOTO CARTOGRAPHER Office Visit [facility] Internal Medicine at [place] [address] [place] [phone] Anjelica Huntley NP Dysuria (Primary Dx); BMI 28.0-28.9,adult; Left sided sciatica; Moderate persistent asthma without complication 03/31/2024 Telephone [facility] Family Medicine [address] [place] [phone] Anjelica Huntley NP 03/27/2024 Telephone [facility] Medicine [address] [place] [phone] Anjelica Huntley NP from Last 3 Months Immunizations Immunization Administration Dates Next Due Influenza, Unspecified 04/10/2024(Deferr ed: Patient Refused),02/23/2024(Deferred: Patient Refused),02/23/2024(Deferred: Patient Refused),03/16/2023(Deferred: Patient Refused),02/22/2023(Deferred: Patient [...] ed with meds Palpitations Fibromyalgia possibly-to see Plating Inspector PFO (patent foramen ovale) Low back pain Fibromyalgia Osteoarthritis Osteoporosis 2020 Cataract CAD (coronary artery disease) 02/20/2023 NSTEMI (non-ST elevated myoc ardial infarction) (HCC) 02/20/2023 Family History Medical History Relation Name [...] (Added by TW Conv) Cancer Maternal Grandmother Luiz villalobos Alcohol abuse Mother Poppy Family history [...] points, staff should administer the PHQ-9) 0 05/30/2024 PHQ-9 Answer Date Recorded PHQ-9 Total Score 11 08/23/2023 Personal Safety Answer Date Recorded Have you ever been in or are you currently in a harmful physical or emotional relationship or is someone making you feel afraid or unsafe? Denies 04/25/2024 Comments No Sex and Gender Information Value Date Recorded Sex Assigned at Not on file Legal Sex Female 5:33 AM PHOTO CARTOGRAPHER Gender Identity Not on file Sexual Orientation Not on file Occupation Industry Job Start Date Job End Date Retired Not on file Not on file Not on file Obstetrics History Last Filed Vital Signs Vital Sign Reading Time Taken Comments Blood Pressure 134/68 05/30/2024 7:52 AM CDT Pulse 74 05/30/2024 7:52 AM CDT Temperature 36.9 C (98.4 F) 05/30/2024 7:52 AM CDT Respiratory Rate 20 04/25/2024 8:41 AM PHOTO CARTOGRAPHER Oxygen Saturation 95% 05/30/2024 7:52 AM CDT Inhaled Oxygen Concentration - - Weight 64.4 kg (142 lb) 05/30/2024 7:52 AM CDT Height 149.9 cm (4' 11 ) 05/30/2024 7:52 AM CDT Body Mass Index 28.68 05/30/2024 7:52 AM CDT Plan of Treatment Health Maintenance Due Date Last Done Comments Hepatitis B Screening 11/09/1969 Zoster Vaccine (1 of 2) 11/09/2001 Osteoporosis Screening-Bone Density Scan 11/13/2022 11/13/2020, 11/13/2020, 11/13/2020 Well Visit 65+ 09/28/2024 09/29/2023, 09/23, 11/04/2020 Influenza Vaccine (Season Ended) 2024 Breast Cancer Screening-Mammogram 11/04/2024 11/05/2023, 11/05/2023, 06/24/2021, Additional history exists Depression Screening 05/30/2025 05/30/2024, 05/05/2024, 04/10/2024, Additional history exists Fall Risk Assessment 05/30/2025 05/30/2024, 05/05/2024, 04/25/2024, Additional history exists Colon Cancer Screening-Colonoscopy 03/25/2030 03/25/2020, 11/11/2015 DTaP/Tdap/Td Vaccine (4 - Td or Tdap) 06/07/2031 06/06/2021, 08/02/2015, 09/18/2009 Colon Cancer Screening-CT Colonography Discontinued 03/25/2020, 11/11/2015 Colon Cancer Screening-DNA Stool Discontinued 03/25/19, 11/11/2015 Colon Cancer Screening-FIT Discontinued 03/25/2020, Colon Cancer Screening-Sigmoidoscopy Discontinued 03/25/2020, 11/11/2015 Hepatitis C Screening Completed 12/22/2021 Pneumococcal vaccine 65+ Discontinued Medical Devices Implanted Type Area Radio Director Device Identifier Shelf Expiration Date Model / Serial / Lot R-Hip 2014 Right: Hip Procedures Procedure Name Priority Date/Time Associated Diagnosis Comments POCT LIPID PANEL Routine 05/29/2024 11:54 AM CDT Coronary artery disease involving samish coronary artery of samish heart without angina pectoris Pure hypercholesterolemia LOWER EXTREMITY VENOUS DOPPLER Schedule Routine, Read Routine (OP Routine) 05/26/2024 10:29 AM CDT XR CHEST PA LATERAL 2 VIEWS Schedule Routine, Read Routine (OP Routine) 05/26/2024 8:40 AM CDT VT ARTHROCENTESIS ASPIR&/INJ MAJOR JT/BURSA W/US Routine 05/22/2024 [...] Read Routine (OP Routine) 04/25/2024 8:39 AM PHOTO CARTOGRAPHER Lumbar spondylosis Lumbar facet arthropathy URINE CULTURE Routine 04/10/2024 9:40 AM PHOTO CARTOGRAPHER Dysuria POCT URINALYSIS, AUTO W/O SCOPE Routine 04/10/2024 9:34 AM PHOTO CARTOGRAPHER Dysuria DIAGNOSTIC MAMMOGRAM Schedule Routine, Read Routine (OP Routine) 11/05/2023 3:39 PM CDT HEPATITIS PANEL, ACUTE Routine 12/22/2021 11:17 AM CDT Fatigue, unspecified type HM DEXA SCAN Routine 11/13/2020 COLONOSCOPY 03/25/2020 1:48 PM PHOTO CARTOGRAPHER from Last 3 Months or Most Recently Relevant to Health Maintenance Results * POCT lipid panel (05/29/2024 11:54 AM CDT) Cholesterol, POC 248 mg/dL HDL, POC 57 mg/dL Triglycerides, POC 138 mg/dL LDL Cholesterol POC 164 mg/dL Chol/HDL Ratio, POC 2.9 Non-HDL Cholesterol, POC 191 mg/dL Cholesterol Total, POC 248 mg/dL Capillary blood 05/29/2024 1 1:54 AM CDT us Sergei Richards MD POINT OF CARE TEST O RDERABLES Final Result * LOWER EXTREMITY VENOUS DOPPLER (05/26/2024 10:29 AM CDT) Anatomical Region Laterality Modality N/A Ultrasound us Historical Provider IMMaida US PROCEDURES Final R esult * XR Chest Pa Lateral 2 Views (05/26/2024 8:40 AM CDT) Anatomical Region Laterality Modality Body, Chest N/A Radiographic Tram ging us Historical Provider MD GUO XR PROCEDURES Final R esult * VT ARTHROCENTESIS ASPIR&/INJ MAJOR JT/BURSA W/US (05/22/2024 1:00 [...] the procedure well with no immediate complications Mario Aj MD IN CLINIC/BEDSIDE ORDERA BLES [...] FLUOROSCOPY PROCEDURES Final Result Performing Organization Address [facility] Co de Phone Number [email or web address] * XR [...] PROCEDURES Final Re sult Performing Organization Address [facility] Phone Number [email or web address] * SCAN - RADIOLOGY/IMAGING (05/08/2024 1:49 PM CDT) Anatomical Region Laterality Modality Other Tashia GRAHAM Final Result * SCAN - RADIOLOGY/IMAGING (05/03/2024) Anatomical Region Laterality Modality Other Provider Scanning Final Result * IR Medial Branch Block Lumbar Sacral First Level Bilateral (aka MBB) (04/25/2024 8:39 AM PHOTO CARTOGRAPHER) Narrative [facility] - 04/25/2024 8:39 AM PHOTO CARTOGRAPHER The images from this study are not interpreted by Radiology. Please refer to the physician's procedure / OR operative note. Nilesh Dos Santos MD IMG IR PROCEDURES Final Re sult Performing Organization Address [facility] Co de Phone Number [email or web address] * (ABNORMAL) Urine culture Urine, clean voided (04/10/2024 9:40 AM PHOTO CARTOGRAPHER) Pathologist [facility] Urine culture (A) [facility] Comment: CULTURE, URINE, ROUTINE Micro Number: [id number] Test Status: Final Specimen Source: Urine, clean [...] Comments Urine, clean voided 04/10/2024 9:40 AM PHOTO CARTOGRAPHER 04/11/2024 4:20 AM PHOTO CARTOGRAPHER Anjelica Huntley NP LAB MICROBIOLOGY - GENERAL OR DERABLES Final Result [facility] [address] [place] [address] * (ABNORMAL) POCT UA, AUTO W/O SCOPE (04/10/2024 9:34 AM PHOTO CARTOGRAPHER) Color, Urine, POC Yellow Clarity, ur, POC Cloudy(A) Clear Glucose, ur, POC Negative Negative MG/DL Bilirubin, ur, POC Negative Negative, Small, Moderate, Large Ketones, ur, POC Negative Negative Specific [place], POC 1.015 1.003 - 1.030 Blood, ur, POC Negative Negative pH, ur, POC 7.5 5.0 - 8.0 Protein, ur, POC Negative Negative Urobilinogen, Urine, POC 0.2 mg/dL Leukocytes, ur, POC Small(A) Negative Nitrite, ur, POC Negative Negative Appearance, fld Cloudy(A) Clear Urine 04/10/2024 9:34 AM PHOTO CARTOGRAPHER Anjelica Huntley NP POINT OF CARE TEST ORDERABLES Final Result * Diagnostic Mammogram (11/05/2023 3:39 PM CDT) Anatomical Region Laterality Modality Breast Mammography Historical Provider MD IMG MAMMO PROCEDURES Ca l Result * Hepatitis panel, acute (12/22/2021 11:17 AM CDT) Hep A IgM NON-REACTI VE NON-REACT JUSTICE [facility] Comment: For additional information, please refer to http://rollApp.OneCard/faq/TEM344 (This link is being provided for informational/ [...] a test for HCV RNA (test code 48038) is suggested. For additional information please refer to http://rollApp.OneCard/faq/BEZ60m8 (This link is being provided for informational/ educational purposes only.) Blood 12/22/2021 11:1 7 AM CDT 12/22/2021 11:18 AM CDT Tashia GRAHAM LAB MICROBIOLOGY - GE NERAL ORDERABLES Final Result [facility] [address] [place] [address] * DEXA SCAN (11/13/2020) Historical Provider [facility] Edited Result - Final * COLONOSCOPY (03/25/2020 1:48 PM PHOTO CARTOGRAPHER) Anatomical Region Laterality Modality Other Narrative Procedure Note Joseph Guillaume MD PhD - 03/25/2020 1:48 PM CST ENDOSCOPY LAB Patient Name: Maggi De Leon Procedure Date: 03/25/2020 1:48 PM Date of : 1950 Admit Type: Outpatient Age: 69 Gender: Female Attending MD: Joseph Guillaume MD,PHD Room: [facility] ENDOSCOPY ROOM 03 Note Status: Finalized [...] The scope was passed under direct vision.The [id number] was introduced through the anuswith the intention of advancing to the ileum. The scopewas advanced to the sigmoid colon before the procedurewas aborted. Medications were given. The scope waspassed under direct vision. The [id number] was introduced through the anus and advanced [...] business hours - Please call theNurse Coordinator: [phone]. After hours, evening, nights, weekends and holidays- Please call the hospital regional owner operator truck driver at and ask for the GI fellow weatherization technician. Attending Participation: I personally performed the entire procedure. Electronically signed by Joseph Guillaume MD. Joseph Guillaume MD, PHD 03/25/2020 2:32:06 PM Number of Addenda: 0 Note Initiated On: 03/25/2020 1:48 PM Joseph Guillaume MD PhD ENDOSCOPY PROCEDURES Ca l Result from Last 3 Months or Most Recently Relevant to Health Maintenance Insurance MEDICARE FOR LIFE MEDICARE FOR LIFE MEDICARE [facility] Address: [facility] [address] [place] [address] FOR LIFE FOR LIFE MEDICARE Advance Directives For more information, please contact: [phone] * Full Code (Latest Code Status on File) Date Activated Date Inactivated Comments 03/25/2020 11:54 AM 03/25/2020 7:31 PM * Full Code Date Activated Date Inactivated Comments 08/04/2018 10:36 AM 08/04/2018 5:07 PM Care Teams Endodontic Assistant Relationship Specialty Start Date End Date Anjelica Huntley, DIRECTOR OF ENTERTAINMENT [address] [facility] [address] [place] [address] PCP - General Internal Medicine 06/10/22 Buzz Blankenship MD [address] [facility] [address] [place] [address] Consulting Physician Rheumatology 04/14/21
--- OUTSIDE RECORDS SUMMARY | 2024-06-24 15:50 | XMS_ITS | Clinical Summary ---
Author Organization [facility] Lazaro Martin Address [address] [facility] [place] [address] Care Team Providers Care Customer Quality Engineer Name Role Phone Unavailable Primary Care Provider Unavailabl e Allergies Active Allergy Reactions Criticality Noted Date Comments Diphenhydramine-Acetamin ophen Nausea and Vomiting Low 07/24/2019 Ezetimibe Muscle Pain Medium 03/21/2021 Hydrocodone Nausea and Vomiting Low 03/04/2020 Penicillins Swelling Medium 03/13/2015 Pregabalin Other (See Comments) Low 04/14/2022 Blurred vision Yrlfjhr-Aop-Yed Reductase Inhibitors Muscle Pain Medium 03/21/2021 Tramadol [...] 2 Active fluticasone propionate (FLONASE) 50 mcg/spray [place], Suspension nasal inhaler 2 Active linaCLOtide (Linzess) [...] T d or Tdap) 08/01/2025 08/02/2015, 09/18/2009 OSTEOPOROSIS SCREENING 11/13/2025 11/13/2020, 2018 RSV VACCINE (60+ or ) (1 - 1-dose 75+ series) 11/09/2026 COLORECTAL SCREENING 03/25/2030 03/25/2020, 03/25/19 Colorectal Cancer Screening 03/25/2030 Insurance MEDICARE PART A AND B [facility] [employer]
--- OUTSIDE RECORDS SUMMARY | 2024-06-24 15:50 | XMS_ITS | Encounter Summary ---
Author Organization [facility] Healthcare Address [address] [place] [address] Care Team Providers Care Communication Center Operator Name Role Phone Annamaria Bates Primary Care Provider [phone] Buzz Blankenship MD Unavailable [phone] Anjelica Huntley TENSILE TESTER Primary Care Provider [phone] Anjelica Huntley TENSILE TESTER Primary Care Provider [phone] Encounter Details Date Type Department Care Team (Late st Contact Info) Description 05/28/2021 Telephone [facility] Radiology [address] [facility] [address] [place] [address] Whitley De Jesus, RT Social [...] on file Legal Sex Female 5:33 AM 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 CENTER 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 Gender Identity Not on file Sexual [...] Time Diarrhea 03/30/2023 03/30/2023 04/13/2023 3:06 AM SURVEY RESEARCH CENTER DIRECTOR documented as of this encounter Care Teams Communication Center Operator Relationship Specialty Start Date End Date Annamaria Bates PA PCP - General Navigating Officer 10/16/19 12/01/21 Anjelica Huntley NP [address] [place] [address] PCP - General Internal Medicine 12/02/21 06/09/22 Anjelica Huntley NP [address] [place] [address] PCP - General Internal Medicine 06/10/22 Buzz Blankenship MD [address] [place] [address] Consulting Physician Rheumatology 04/14/21 documented as of this encounter
--- OUTSIDE RECORDS SUMMARY | 2024-06-24 15:50 | XMS_ITS | Encounter Summary ---
Author Organization [facility] Address [address] [place] [address] Phone Care Team Providers Care Instructional Paraprofessional Name Role Phone Buzz Blankenship MD Unavailable [phone] Anjelica Huntley NP Primary Care Provider [phone] Encounter Details Date Type Department Care Team (Late st Contact Info) Description 05/16/2024 Results Follow-Up [facility] Orthopaedic Surgery [address] [facility] [address] [place] [address] Nilesh Dos Santos MD [address] [address] [place] [address] Social History Tobacco Use Types [...] on file Legal Sex Female 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
--- OUTSIDE RECORDS SUMMARY | 2024-06-24 15:50 | XMS_ITS | Encounter Summary ---
Author Organization [facility] Healthcare Address [address] [place] [address] Care Team Providers Care Cloud Physicist Name Role Phone Buzz Blankenship MD Unavailable [phone] Anjelica Huntley NP Primary Care Provider [phone] Encounter Details Date Type Department Care Team (Late st Contact Info) Description 2022 Telephone [facility] Radiology [address] [facility] [address] [place] [address] Emili Goode, RT Social History Tobacco [...] on file Legal Sex Female 5:33 AM MANAGER TECHNICAL Gender Identity Not on file Sexual Orientation [...] Time Diarrhea 03/30/2023 03/30/2023 04/13/2023 3:06 AM MANAGER TECHNICAL documented as of this encounter Care Teams Cloud Physicist Relationship Specialty Start Date End Date Anjelica Huntley NP [address] [facility] [address] [place] [address] PCP - General Internal Medicine 06/10/22 Buzz Blankenship MD [address] [facility] [address] [place] [address] Consulting Physician Rheumatology 04/14/21 documented as of this encounter
--- OUTSIDE RECORDS SUMMARY | 2024-06-24 15:50 | XMS_ITS | Encounter Summary ---
Author Organization [facility] Address [address] [place] [address] Phone Care Team Providers Care Assistant Engineer Name Role Phone Era Espinoza MD Primary Care Provider [phone] Era Espinoza MD Primary Care Provider [phone] Unknown, Notinfile Primary Care Provider Unavail Annamaria Farooq Primary Care Provider [phone] Buzz Blankenship MD Unavailable [phone] Anjelica Huntley NP Primary Care Provider [phone] Anjelica Hutnley NURSING EDUCATION CONSULTANT Primary Care Provider [phone] Encounter Details Date Type Department Care Team [...] on file Legal Sex Female 5:33 AM WELLHEAD PUMPER Gender Identity Not on file Sexual Orientation [...] COVID: Suspected 02/19/2020 02/19/2020 02/19/2020 12:10 PM WELLHEAD PUMPER COVID: Suspected 02/19/2020 02/19/2020 02/21/2020 2:47 PM WELLHEAD PUMPER Respiratory Infection (RANDAL), contact + droplet Comment:Automatically added due to negative COVID-19 result. 02/21/2020 02/21/2020 03/06/2020 3:0 7 AM WELLHEAD PUMPER Diarrhea 03/30/2023 03/30/2023 04/13/2023 3:06 AM WELLHEAD PUMPER documented as of this encounter Care Teams Assistant Engineer Relationship Specialty Start Date End Date Era Espinoza MD PCP - General Family Practice 11/22/17 03/07/19 Era Espinoza MD PCP - General Family Practice 03/08/19 10/10/19 Unknown, Notinfile PCP - General 10/11/19 10/15/19 Annamaria Bates PA PCP - General Services Tech 10/16/19 12/01/21 Anjelica Huntley NURSING EDUCATION CONSULTANT [address] [place] [address] PCP - General Internal Medicine 12/02/21 06/09/22 Anjelica Huntley NP [address] [facility] [address] [place] [address] PCP - General Internal Medicine 06/10/22 Buzz Blankenship MD [address] [place] [address] Consulting Physician Rheumatology 04/14/21 documented as of this encounter
--- OUTSIDE RECORDS SUMMARY | 2024-06-24 15:50 | XMS_ITS | Encounter Summary ---
Author Organization [facility] Address [address] [place] [address] Phone Care Team Providers Care Outdoor Fitness Trainer Name Role Phone Era Espinoza MD Primary Care Provider + [phone] Era Espinoza MD Primary Care Provider + [phone] Unknown, Notinfile Primary Care Provider Unavail Annamaria Farooq Primary Care Provider [phone] Buzz Blankenship MD Unavailable [phone] Anjelica Huntley NP Primary Care Provider [phone] Anjelica Huntley NP Primary Care Provider [phone] Encounter Details Date Type Department Care Team [...] on file Legal Sex Female 5:33 AM STORE COORDINATOR Gender Identity Not on file Sexual Orientation [...] COVID: Suspected 02/19/2020 02/19/2020 02/19/2020 12:10 PM STORE COORDINATOR COVID: Suspected 02/19/2020 02/19/2020 02/21/2020 2:47 PM STORE COORDINATOR Respiratory Infection (RANDAL), contact + droplet Comment:Automatically added due to negative COVID-19 result. 02/21/2020 02/21/2020 03/06/2020 3:0 7 AM STORE COORDINATOR Diarrhea 03/30/2023 03/30/2023 04/13/2023 3:06 AM STORE COORDINATOR documented as of this encounter Care Teams Outdoor Fitness Trainer Relationship Specialty Start Date End Date Era Espinoza MD PCP - General Family Practice 11/22/17 03/07/19 Era Espinoza MD PCP - General Family Practice 03/08/19 10/10/19 Unknown, Notinfile PCP - General 10/11/19 10/15/19 Annamaria Bates PA PCP - General Editorial Manager 10/16/19 12/01/21 Anjelica Huntley EEG TECH [address] [facility] [address] [place] [address] PCP - General Internal Medicine 12/02/21 06/09/22 Anjelica Huntley EEG TECH [address] [facility] [address] [place] [address] PCP - General Internal Medicine 06/10/22 Buzz Blankenship MD [address] [facility] [address] [place] [address] Consulting Physician Rheumatology 04/14/21 documented as of this encounter
--- OUTSIDE RECORDS SUMMARY | 2024-06-24 15:50 | XMS_ITS | Data Portability ---
Author Organization [employer] Address [address] [place] [address] Assessment No assessment recorded. Plan of Treatment Reminders Order Date Submit Date Provider Last Modified By Organization Details Last Modified Time Details Appointments None recorded. Lab None recorded. Referral None recorded. Procedures None recorded. Surgeries None recorded. Imaging ultrasound, lower extremity, nonvascular 2015 016 [email or web address] Not available 6 14:09:41 x-ray, weightbeari ng knee - room 3 2015 Huey [email or web address] Not available 6 18:07:47 Medication Orders None recorded. Patient TargetsNo targets recorded. Patient Instructions Encounter Date Encounter Id Patient Instructions Last Modified By Organization Details Last Modified Time 03/14/2015 [id number] knee arthritis: care instructions Not available 03/20/2015 14:20:20 knee pain or injury: care instructions Not available 03/20/2015 14:20:20 hip arthritis: care instructions Not available 03/20/2015 14:20:20 osteoarthritis: care instructions Not available 03/20/2015 14:20:20 Reason for Referral None Reported. Problems Name Problem SNOMED Code Status Onset Date Resolution Date Notes Provider Name and Address Organization Details Recorded Time Knee pain Active Scot bobby Storone, [facility] 6 14:01:24 Osteoarthritis of hip 130088082 Active Scot bobby Storone, [facility] 6 14:01:23 Osteoarthritis of knee 090908524 Active Scot bobby Storone, [facility] 6 14:01:23 Problem Notes None recorded. Procedures Surgical History Date Name Laterality Status Provider Name and Address Organization Details Recorded Time 02/22/18 89 Hysterectomy completed [facility] 03/14/2015 12:39:44 02/22/18 78 Caesarean Section completed [facility] 03/14/2015 12:39:44 Imaging Results None recorded. Procedure Notes None recorded. Medical Equipment None Reported. Allergies Allergen ID Allergen Name Allergen Category Reaction Reaction Severity Criticality Documentation Date Start Date Code Code System Note Provider Name and Address Organization Details Recorded Time 28266 Product containin g penicilli n (product) medicatio n hives Not available Not available 03/14/2015 13090 8001 [facility]ED [facility] 6 12:39:44 27091 tramadol medicatio n vomiting Not available Not available 03/14/2015 20373 [facility] 6 12:39:44 Medications Name Sig Start Date [...] Details Last Updated DateTime 6 30.2 kg/m2 36589.7 792 g 73 /min 154.94 cm 148 mm[Hg] 95 mm[Hg] [facility] 6 12:39:44 Social History Question Answer Notes LastModified by Organizat ion Details LastModified Time Tobacco Smoking Status [facility]oker [facility] 03/14/2015 12:39:44 What Is Your Level Of [...] available 02/23 12:39:44 Medical History Condition Response Coronary Artery Disease N HIV or AIDS N Gout N Kidney Stones N Hyperthyroidism N Head Trauma/Injury N Hernia N Depression Y COPD N Blood Clots N Lung Disease N Hypothyroidism N Pacemaker N Anxiety Disorder N Arthritis Y Cancer N Stroke N Neck Injury N Leg or Foot Ulcers N High Cholesterol N Liver Disease N Rheumatoid Arthritis N Headaches N Fibromyalgia N Kidney Disease N Heart Problems N Migraines N Thyroid Problems N Anemia N Multiple Sclerosis N Ulcers N Heart Attack (RI) N Diabetes N Bleeding Disorder N Seizures/Epilepsy [...] SNOMED-CT Code Diagnosis ICD10 Code Diagnosis Note [id number] Sharri Jaramillo MD [facility] [address] [facility] [address] [facility] [address] 03/14/2015 12:00:32 03/14/2015 14:09:41 Knee pain 61603788 M25.561 Osteoarthritis of hip 23 5549129 M16.9 Osteoarthr itis of knee 078964853 M17.9 Health Concerns Section Related Observation LastModified [...] [email or web address].Notes:SE Lo DICTATED NOTES ROBER Calles - [facility], [facility] 03/18/2015 06:21:41 OBGyn Episode No OBEpisode recorded.
--- OUTSIDE RECORDS SUMMARY | 2024-06-24 15:50 | XMS_ITS | CONTINUITY OF CARE DOCUMENT ---
Author Name rosita becker Address Unknown Organization [facility] Address [address] [place] [address] Phone [phone] Care Team Providers Care Grain Origination Specialist Name Role Phone Jonathan MONTENEGRO, Yang Unavailable INSURANCE PROVIDERS Payer name Policy type / Coverage type Keyes red republican ID VICTORINA FREGOSO [id number]
--- OUTSIDE RECORDS SUMMARY | 2024-06-24 15:50 | XMS_ITS | Encounter Summary ---
Author Organization [facility] Address [address] [place] [address] Phone Care Team Providers Care Simplex Operator Name Role Phone Buzz Blankenship MD Unavailable [phone] Anjelica Huntley NP Primary Care Provider [phone] Encounter Details Date Type Department Care Team (Late st Contact Info) Description 09/29/2022 Orders Only [facility] PMR [phone] Scanning, Provider Social History Tobacco Use Types [...] on file Legal Sex Female 5:33 AM [employer]PORATE [employer]NAGER Gender Identity Not on file Sexual [...] Time Diarrhea 03/30/2023 03/30/2023 04/13/2023 3:06 AM CORPORATE HUM[employer] RESOURCES MANAGER documented as of this encounter Care Teams Simplex Operator Relationship Specialty Start Date End Date Anjelica Huntley NP [address] [facility] [address] [place] [address] PCP - General Internal Medicine 06/10/22 Buzz Blankenship MD [address] [facility] [address] [place] [address] Consulting Physician Rheumatology 04/14/21 documented as of this encounter
--- OUTSIDE RECORDS SUMMARY | 2024-06-24 15:50 | XMS_ITS | Referral Summary ---
Author Organization [facility] Address [address] [place] [address] Care Team Providers Care Search Engine Optimization Specialist Name Role Phone Buzz Blankenship MD Unavailable [phone] Anjelica Huntley NP Primary Care Provider [phone] Encounters Date Type Department Care Team Description 06/08/2024 Telephone [facility] Cardiology [address] [facility] [address] [place] [address] [phone] Sergei Richards MD 06/05/2024 Telephone [facility] Family Medicine [address] [facility] [address] [place] [address] Anjelica Huntley NP 05/30/2024 8:00 AM CDT Office Visit [facility] Internal Medicine at [place] [address] [facility] [address] [place] [address] Anjelica Huntley NP Weight gain (Primary Dx); BMI 26.0-26.9,adult; Mixed hyperlipidemia; Primary insomnia; Post-menopausal 05/29/2024 11:45 AM CDT Office Visit [facility] Cardiology [address] [address] [place] [address] Sergei Richards MD History of non-ST elevation myocardial infarction (NSTEMI) (Primary Dx); Essential hypertension; 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 [address] [facility] 1st Floor [address] [place] [address] 05/22/2024 1:00 PM CDT Procedure visit [facility] [address] [facility] 1st Floor [address] [place] [address] Mario Aj MD Primary osteoarthritis of both knees 05/19/2024 8:46 AM CDT - 05/19/2024 11:59 PM CDT Hospital Encounter [facility] [address] [facility] [address] [place] [address] Nilesh Dos Santos MD Primary osteoarthritis of left hip; Left hip pain Discharge Disposition: Discharge to home or self care 05/17/2024 Telephone Radiology - [address] [facility] [address] [place] [address] Radha Fox, 05/17/2024 Orders Only [facility] [address] [place] [address] 2nd Floor [address] [place] [address] Nilesh Dos Santos MD Primary osteoarthritis of left hip (Primary Dx); Left hip pain 05/16/2024 Results Follow-Up [facility] [address] [place] [address] 2nd Floor [address] [place] [address] Nilesh Dos Santos MD 05/16/2024 9:40 AM CDT - 05/16/2024 11:59 PM CDT Hospital Encounter [facility] [address] [place] [id number] Left hip pain Discharge Disposition: Discharge to home or self care 05/16/2024 8:45 AM CDT Office Visit [facility] [address] [place] [address] 2nd Floor [address] [place] [address] Nilesh Dos Santos MD Left hip pain (Primary Dx); Primary osteoarthritis of left hip; Chronic sacroiliac joint pain; Lumbar facet joint pain; Lumbar spondylosis; Primary osteoarthritis involving multiple joints 05/12/2024 7:31 AM CDT - 05/12/2024 11:59 PM CDT Hospital Encounter [facility] [address] [facility] [address] [place] [address] Nilesh Dos Santos MD Chronic sacroiliac joint pain Discharge Disposition: Discharge to home or self care 05/11/2024 Orders Only [address] [phone] Buzz Blankenship MD 05/11/2024 12:55 PM CDT - 05/11/2024 11:59 PM CDT Hospital Encounter [address] [address] Localized primary osteoarthritis of carpometacarpal (CMC) joint of right wrist Discharge Disposition: Discharge to home or self care 05/09/2024 Telephone Radiology - [address] [facility] [address] [place] [address] Radha Fox, 05/08/2024 Results Follow-Up [address] [address] Tashia Kirk PA 05/08/2024 Orders Only [address] [address] Tashia Kirk PA 05/05/2024 10:00 AM CDT Office Visit [facility] Internal Medicine at [address] [place] [address] Anjelica Huntley NP Weight gain (Primary Dx); BMI 29.0-29.9,adult; Primary insomnia 05/03/2024 Orders Only [facility] Health Information Management [address] [place] [address] Scanning, Provider 05/03/2024 9:15 AM CDT Office Visit [address] [address] Tashia Kirk PA Polyarthralgia (Primary Dx); Fibromyalgia; Pain of right hand; Localized primary osteoarthritis of carpometacarpal (CMC) joint of right wrist 05/02/2024 Orders Only [facility] [address] [facility] 2nd Floor [address] [place] [address] Nilesh Dos Santos MD Chronic sacroiliac joint pain (Primary Dx) 04/27/2024 Telephone [facility] [address] [facility] Medical Office Building [address] [place] [address] Francine Isaac LPN 04/26/2024 Telephone [facility] [address] [facility] 1st Floor [address] [place] [address] Mario Aj MD 04/25/2024 7:57 AM REGISTERED NURSE SUPERVISOR - 04/25/2024 11:59 PM REGISTERED NURSE SUPERVISOR Hospital Encounter [facility] Management at [facility] [id number] [place] [address] Gerald Woodard MD Lumbar spondylosis (Primary Dx); Lumbar facet arthropathy Discharge Disposition: Discharge to home or self care 04/19/2024 Telephone [facility] Orth[facility] Surgery [address] [place] [address] 2nd Floor [address] [place] [address] Justine Peraza CMA 04/13/2024 Results Follow-Up [facility] Internal Medicine at [address] [place] [address] Anjelica Huntley NP 04/10/2024 9:00 AM REGISTERED NURSE SUPERVISOR Office Visit [facility] Internal Medicine at [address] [place] [address] Anjelica Huntley NP Dysuria (Primary Dx); BMI 28.0-28.9,adult; Left sided sciatica; Moderate persistent asthma without complication 03/31/2024 Telephone [facility] Family Medicine [address] [place] [address] Road [address] [place] [address] Anjelica Huntley NP 03/27/2024 Telephone [facility] Family Medicine [address] [address] Anjelica Huntley NP from Last 3 Months Allergies Active Allergy Reactions Criticality Noted Date Comments Bempedoic Acid Other (See comments) Low 11/29/2023 Muscle ache Hydrochlorothiazide Other (See comments) Low 04/20/2012 Hydrocodone Nausea & Vomiting,Dizziness ,Headache,Vomiting Low 05/26/2011 Pregabalin Other (See comments),Agitatio n Low 10/13/2021 Blurred vision Pain Medicine Vomiting Low 07/24/2019 Penicillins Swelling Medium 03/13/2015 Gtjcmnv-Dmm-Rvy Reductase Inhibitors Muscle pain Medium 03/21/2021 Medications [...] 7 days 3 mL 1 05/06/19 25 2024 Discontinued amitriptyline (ELAVIL) 25 mg [...] Dysuria 03/16/2023 Coronary artery disease invo lving inaja coronary artery of inaja heart without angina pectoris 03/09/2023 History of [...] 05/20/2022 Assessment & Plan (12/29/2022 11:49 AM REGISTERED NURSE SUPERVISOR): Resolved with kenalog IM. Will defer restarting [...] 03/24/2022 Assessment & Plan (03/24/2022 10:44 AM REGISTERED NURSE SUPERVISOR): Likely worsened by MTX which was stopped 01/2022. Recommend folic acid up to 3mg daily and biotin. Encouraged to discuss with her television cable installer as well. Primary insomnia 03/13/2022 Assessment & Plan (09/29/2023 9:19 AM CDT): This is a significant, separately identifiable problem that was evaluated and managed on the same day as the wellness exam Dyspnea on exertion 02/04/2022 Overview (02/04/2022): Patient O2 sat is 98%. She does complain of slight chest pressure and shortness of breath. 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 current use of therapeutic drug 2021 Overview (12/25/2021): TSPOT negative: 11/2021 Hepatitis panel negative: 11/2021 Assessment & Plan (10/19/2023 8:42 AM CDT): Hepatitis panel negative: 11/2021 TSPOT negative: 11/2021 Assessment & Plan (09/21/2023 11:22 AM CDT): Hepatitis panel negative: 11/2021 TSPOT negative: 11/2021 Assessment & Plan (01/25/2023 9:31 AM REGISTERED NURSE SUPERVISOR): Hepatitis panel negative; 11/2021 TSPOT negative: 11/2021 Assessment & Plan (12/29/2022 11:51 AM REGISTERED NURSE SUPERVISOR): Hepatitis panel negative; 11/2021 TSPOT negative: 11/2021 [...] 11/2021 Assessment & Plan (03/24/2022 10:42 AM REGISTERED NURSE SUPERVISOR): Hepatitis panel negative; 11/2021 TSPOT negative: 11/2021 Assessment & Plan (01/20/2022 10:27 AM REGISTERED NURSE SUPERVISOR): Hepatitis panel negative; 11/2021 TSPOT negative: 11/2021 [...] and Naprosyn. Medrol Dosepaks are not a intermodal customer service solution. As long as her kidney function [...] therapy at the pain management Center at [facility] Assessment & Plan (06/04/2021 12:51 PM CDT): [...] limited. Assessment & Plan (01/25/2023 9:32 AM REGISTERED NURSE SUPERVISOR): Previously diagnosed by PCP. C/o diffuse generalized pain. S/e to gabapentin and lyrica so will defer restarting. Recently restarted venlafaxine per PCP for anxiety. Remains on fluoxetine but was increased to 60mg daily per psych. Additional medication options are limited. Assessment & Plan (12/29/2022 11:50 AM REGISTERED NURSE SUPERVISOR): Previously diagnosed by PCP. C/o diffuse generalized [...] PCP. Assessment & Plan (03/24/2022 10:42 AM REGISTERED NURSE SUPERVISOR): Previously diagnosed by PCP. C/o diffuse generalized pain. S/e to gabapentin and lyrica so will defer restarting. Currently on venlafaxine and fluoxetine per PCP. Assessment & Plan (01/20/2022 10:27 AM REGISTERED NURSE SUPERVISOR): Previously diagnosed by PCP. C/o diffuse generalized [...] dizziness. Assessment & Plan (02/17/2021 8:28 PM REGISTERED NURSE SUPERVISOR): Add gabapentin at hs. Discussed increasing to 100mg bid over the coming week pending symptom improvement. Tremor 01/27/2021 Assessment & Plan (01/27/2021 9:30 AM REGISTERED NURSE SUPERVISOR): Advised ct of head, eeg, referral to neurology Advised labs today - will notify her of results as they are available Syncope 01/27/2021 Assessment & Plan (02/17/2021 8:26 PM REGISTERED NURSE SUPERVISOR): Has appt pending for cv that she will keep She will continue to not drive Assessment & Plan (01/27/2021 9:30 AM REGISTERED NURSE SUPERVISOR): Advised no driving, climbing, or swimming Advised ct of head, eeg, referral to neurology Advised labs today - will notify her of results as they are available Plantar fasciitis, bilateral 11/04/2020 Assessment & Plan (11/04/2020 2:16 PM CDT): Will continue with care per decontamination worker Thrombophlebitis of superfic ial veins of right [...] 10/08/2020 Assessment & Plan (12/30/2020 8:38 PM REGISTERED NURSE SUPERVISOR): Decrease maxzide due to hyponatremia Repeat bmp in the next week Assessment & Plan (10/08/2020 6:08 PM CDT): Continue with care per ent We discussed as she has a current rx for valium that we cannot provide her with another at the current time. We discussed that if her ent discontinues writing it for her that pending review of [place] visual basic developer we can further discuss a prescription. Paradoxical vocal fold motion disorder Assessment & Plan (09/12/2020 11:02 AM CDT): I have recommended laryngeal control therapy here at the [facility] in order to [...] time Assessment & Plan (02/17/2021 8:25 PM REGISTERED NURSE SUPERVISOR): Stable, continue meds same at this time Assessment & Plan (12/30/2020 8:40 PM REGISTERED NURSE SUPERVISOR): Decrease prozac to 30mg daily Assessment & [...] needed. Assessment & Plan (12/30/2020 8:39 PM REGISTERED NURSE SUPERVISOR): Continue with care per GI Due to [...] hematology. Assessment & Plan (12/30/2020 8:40 PM REGISTERED NURSE SUPERVISOR): Has appt pending with heme/onc that she [...] this time. Will continue to follow-up with decontamination worker as planned. Anxiety 04/18/2020 Assessment & Plan (07/10/2022 6:53 PM CDT): As the patient's pain causes depression and depression worsens pain, she may benefit from speaking to a pain psychologist like 1 at the pain center at [facility]. Assessment & Plan (10/13/2021 12:47 PM CDT): Discontinue with xanax. Will restart valium bid/prn anxiety or dizziness. Assessment & Plan (06/04/2021 12:49 PM CDT): Will add a prn xanax as she has discontinued valium. Assessment & Plan (02/17/2021 8:28 PM REGISTERED NURSE SUPERVISOR): Resume prn valium, advised not taking more than 10mg daily. Advised potential for addictiveness with valium and additionally for sedation as a side effect. She was advised caution on driving after taking due to sedation potential. Assessment & Plan (04/18/2020 10:23 AM REGISTERED NURSE SUPERVISOR): Continue medication same at this time Rib pain on left side 04/18/2020 Assessment & Plan (04/18/2020 10:23 AM REGISTERED NURSE SUPERVISOR): We reviewed ct chest, abdominal us. She will continue to exercise 4x/week for 30min each session. Gastric polyp 04/18/2020 Assessment & Plan (04/18/2020 10:23 AM REGISTERED NURSE SUPERVISOR): Continue with care per gi Lipoma of torso 04/18/2020 Assessment & Plan (04/18/2020 10:23 AM REGISTERED NURSE SUPERVISOR): Will refer to gen surg to discuss further evaluation and treatment Abdominal pain 03/14/2020 Overview (03/14/2020): Added automatically from request for surgery [id number] Assessment & Plan (07/10/2022 6:50 PM CDT): [...] order and advised to take this to [facility] today. Change in bowel habits 03/14/2020 Overview (03/14/2020): Added automatically from request for surgery [id number] Assessment & Plan (04/02/2023 7:35 PM REGISTERED NURSE SUPERVISOR): The patient was recently treated with a number of antibiotics and Cosentyx. Even though Cosentyx was discontinued in January, there is an association with triggering a inflammatory bowel disease type condition. We would like to check stool studies including calprotectin to evaluate an infection or inflammatory cause of her symptoms. Hoarseness of voice 02/19/2020 Assessment & Plan (03/20/2020 11:27 AM REGISTERED NURSE SUPERVISOR): resolved Assessment & Plan (02/19/2020 12:54 PM REGISTERED NURSE SUPERVISOR): Will send for covid test today. Will notify her of results as available. Advised her in the interim to report to er if worsening. Will start on proventil hfa and change aciphex to dexilant. Positive depression screening 11/14/2019 Assessment & Plan (03/20/2020 11:26 AM REGISTERED NURSE SUPERVISOR): Continue with prozac. Will add buspar bid, discussed increasing pending response. 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 Will continue with care per gi. Assessment & Plan (03/20/2020 11:27 AM REGISTERED NURSE SUPERVISOR): Continue with care and testing per GI. Assessment & Plan (02/19/2020 12:54 PM REGISTERED NURSE SUPERVISOR): Will send for covid test today. Will [...] stimulator. Assessment & Plan (03/24/2022 10:43 AM REGISTERED NURSE SUPERVISOR): XR L-spine and MRI L-spine revealed multilevel [...] Plan (10/16/2019 10:34 AM CDT): Managed by supervisor meter shop via [facility] Osteoarthritis of hip 03/13/2015 Resolved [...] provided Assessment & Plan (03/13/2022 8:16 AM REGISTERED NURSE SUPERVISOR): Obesity is unchanged. Discussed the patient's BMI. The BMI is above average. BMI management plan is completed. BMI Follow-up includes: nutrition counseling, exercise counseling and education provided. BMI 30.0-30.9,adult 03/13/2022 03/16/19 Assessment & Plan (05/27/2022 1:44 PM CDT): Discussed the patients BMI: The BMI is above average BMI management is complete. BMI follow-up includes: Nutrition Counseling and education provided Assessment & Plan (03/13/2022 8:16 AM REGISTERED NURSE SUPERVISOR): Obesity is unchanged. Discussed the patient's BMI. The BMI is above average. BMI management plan is completed. BMI Follow-up includes: nutrition counseling, exercise counseling and education provided. Rheumatoid arthritis involvi ng multiple sites with positive rheumatoid factor 03/13/2022 05/21/19 23 Obesity (BMI 30-39.9) 01/28/20222022 Assessment & Plan (01/28/2022 8:30 AM REGISTERED NURSE SUPERVISOR): Obesity is unchanged. Discussed the patient's BMI. The BMI is above average. BMI management plan is completed. BMI Follow-up includes: nutrition counseling, exercise counseling and education provided. BMI 30.0-30.9,adult 01/28/2022 03/13/19 23 Assessment & Plan (01/28/2022 8:30 AM REGISTERED NURSE SUPERVISOR): Obesity is unchanged. Discussed the patient's BMI. [...] and joint pain after starting Plavix following NH s/p stent. Due to increased generalized pain [...] needed. Assessment & Plan (01/25/2023 9:31 AM REGISTERED NURSE SUPERVISOR): Previously isloated APRIL 1:160 on AVISE with [...] needed Assessment & Plan (12/29/2022 11:49 AM REGISTERED NURSE SUPERVISOR): Previously isloated APRIL 1:160 on AVISE with [...] needed. Assessment & Plan (03/24/2022 10:41 AM REGISTERED NURSE SUPERVISOR): Previously isloated APRIL 1:160 on AVISE with [...] psoriatic arthritis. Will continue humira 40mg SQ [id number]. Recent labs reviewed. Follow up in 4 months. Sooner if needed. Assessment & Plan (01/20/2022 10:29 AM REGISTERED NURSE SUPERVISOR): Previously isloated APRIL 1:160 on AVISE with [...] a spondyloarthropathy. Will continue humira 40mg SQ [id number] and give this more time to take [...] starting. Will start approval of Humira 40mg [id number]. Patient advised of the side effects of [...] Blankenship. Assessment & Plan (04/29/2021 5:04 PM REGISTERED NURSE SUPERVISOR): US right hand/wrist (04/21/21): Small grade 1 [...] Blankenship. Assessment & Plan (04/14/2021 5:31 PM REGISTERED NURSE SUPERVISOR): 70-year-old female with PMHx of FM, gout, [...] 08/20/2021 Assessment & Plan (01/27/2021 9:30 AM REGISTERED NURSE SUPERVISOR): Advised ct of head, referral to neurology Advised labs today - will notify her of results as they are available Acute cystitis without hematuria 12/17/2020 06/12/2021 Assessment & Plan (12/30/2020 8:40 PM REGISTERED NURSE SUPERVISOR): resolved Assessment & Plan (12/17/2020 11:07 AM [...] 22 Assessment & Plan (12/30/2020 8:38 PM REGISTERED NURSE SUPERVISOR): Obesity is unchanged. Discussed the patient's BMI. [...] 11/04/2020 Assessment & Plan (04/18/2020 10:22 AM REGISTERED NURSE SUPERVISOR): Resolved. We reviewed recent labs. Continue medication [...] planned Assessment & Plan (03/20/2020 11:26 AM REGISTERED NURSE SUPERVISOR): Continue with care and testing per GI. Retrieve CT from [facility]. Will evaluate further with abdominal US and labs. Hypokalemia 03/20/2020 11/04/2020 Assessment & Plan (08/29/2020 12:31 PM CDT): Seen on labs at [facility]. Repeat potassium level this week Assessment & Plan (04/18/2020 10:22 AM REGISTERED NURSE SUPERVISOR): Resolved. We reviewed recent labs. Continue medication same at this time. Assessment & Plan (03/20/2020 11:27 AM REGISTERED NURSE SUPERVISOR): Will reevaluate on labs. Discussed likely resolved as she has stopped the diazide. Cough 02/19/2020 08/20/2021 Assessment & Plan (03/20/2020 11:27 AM REGISTERED NURSE SUPERVISOR): resolved Assessment & Plan (02/19/2020 12:54 PM REGISTERED NURSE SUPERVISOR): Will send for covid test today. Will [...] a potassium regularly. BMI 29.0-29.9,adult 10/16/2019 05/31/19 Assessment & Plan (02/17/2021 8:27 PM REGISTERED NURSE SUPERVISOR): Encouraged heart healthy diet and exercise Assessment & Plan (05/10/2020 8:33 AM CDT): Obesity is unchanged. Discussed the patient's BMI. The BMI is above average. BMI management plan is completed. BMI Follow-up includes: nutrition counseling, exercise counseling and education provided. Assessment & Plan (04/18/2020 7:47 AM REGISTERED NURSE SUPERVISOR): Obesity is unchanged. Discussed the patient's BMI. [...] constipation. Assessment & Plan (03/24/2019 4:08 PM REGISTERED NURSE SUPERVISOR): Improved with diet modification and as neededlaxatives Gastroesophageal reflux dise ase with esophagitis 07/26/2018 05/08/2021 Overview (07/26/2018): Added automatically from request for surgery [id number] Assessment & Plan (11/09/2019 7:29 PM CDT): Unfortunately Dexilant remains a plan exclusion. She can try and get this through [facility]. Alternatively we could offer her Carafate in conjunction with AcipHex. Assessment & Plan (10/16/2019 10:34 AM CDT): Managed by gastroenterology Assessment & Plan (03/24/2019 4:07 PM REGISTERED NURSE SUPERVISOR): Patient's symptoms her currently manageable with every [...] on file Legal Sex Female 5:33 AM REGISTERED NURSE SUPERVISOR Gender Identity Not on file Sexual [...] CDT Respiratory Rate 20 04/25/2024 8:41 AM REGISTERED NURSE SUPERVISOR Oxygen Saturation 95% 05/30/2024 7:52 AM CDT Inhaled Oxygen Concentration - - Weight 64.4 kg (142 lb) 05/30/2024 7:52 AM CDT Height 149.9 cm (4' 11 ) 05/30/2024 7:52 AM CDT Body Mass Index 28.68 05/30/2024 7:52 AM CDT Plan of Treatment Not on file Medical Devices Implanted Type Area City Driver Device Identifier Shelf Expiration Date Model / Serial / Lot R-Hip 2014 Right: Hip Procedures Procedure Name Priority Date/Time Associated Diagnosis Comments POCT LIPID PANEL Routine 05/29/2024 11:54 AM CDT 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 Pure hypercholesterolemia LOWER EXTREMITY VENOUS DOPPLER Schedule Routine, Read Routine (OP Routine) 05/26/2024 10:29 AM CDT XR CHEST PA LATERAL 2 VIEWS Schedule Routine, Read Routine (OP Routine) 05/26/2024 8:40 AM CDT [place] ARTHROCENTESIS ASPIR&/INJ MAJOR JT/BURSA W/US Routine 05/22/2024 [...] Read Routine (OP Routine) 04/25/2024 8:39 AM REGISTERED NURSE SUPERVISOR Lumbar spondylosis Lumbar facet arthropathy URINE CULTURE Routine 04/10/2024 9:40 AM REGISTERED NURSE SUPERVISOR Dysuria POCT URINALYSIS, AUTO W/O SCOPE Routine 04/10/2024 9:34 AM REGISTERED NURSE SUPERVISOR Dysuria DIAGNOSTIC MAMMOGRAM Schedule Routine, Read Routine (OP Routine) 11/05/2023 3:39 PM CDT HEPATITIS PANEL, ACUTE Routine 12/22/2021 11:17 AM CDT Fatigue, unspecified type HM DEXA SCAN Routine 11/13/2020 COLONOSCOPY 03/25/2020 1:48 PM REGISTERED NURSE SUPERVISOR from Last 3 Months or Most Recently [...] Laterality Modality N/A Ultrasound us Historical Provider IMG US PROCEDURES Final R esult * XR Chest Pa Lateral 2 Views (05/26/2024 8:40 AM CDT) Anatomical Region Laterality Modality Body, Chest N/A Radiographic Tram ging us Historical Provider MD GUO XR PROCEDURES Final R esult * [place] ARTHROCENTESIS ASPIR&/INJ MAJOR JT/BURSA W/US (05/22/2024 1:00 [...] alignment. Vascular calcifications. Procedure Note Hamzah Parra, DO - 05/16/2024 EXAMINATION: XR PELVIS 1 [...] PROCEDURES Final Re sult Performing Organization Address [facility] de Phone Number [email or web address] * SCAN - RADIOLOGY/IMAGING (05/08/2024 1:49 PM CDT) Anatomical Region Laterality Modality Other Tashia GRAHAM Final Result * SCAN - RADIOLOGY/IMAGING (05/03/2024) Anatomical Region Laterality Modality Other Provider Scanning Final Result * IR Medial Branch Block Lumbar Sacral First Level Bilateral (aka MBB) (04/25/2024 8:39 AM REGISTERED NURSE SUPERVISOR) Narrative [facility] - 04/25/2024 8:39 AM REGISTERED NURSE SUPERVISOR The images from this study are not interpreted by Radiology. Please refer to the physician's procedure / OR operative note. Nilesh Dos Santos MD G IR PROCEDURES Final Re sult Performing Organization Address [facility] de Phone Number [email or web address] * (ABNORMAL) Urine culture Urine, clean voided (04/10/2024 9:40 AM REGISTERED NURSE SUPERVISOR) Urine culture (A) [employer] [facility] Comment: CULTURE, URINE, ROUTINE Micro Number: [id number] Test Status: Final Specimen Source: Urine, clean [...] Comments Urine, clean voided 04/10/2024 9:40 AM REGISTERED NURSE SUPERVISOR 04/11/2024 4:20 AM REGISTERED NURSE SUPERVISOR Anjelica Huntley NP LAB MICROBIOLOGY - GENERAL OR DERABLES Final Result [facility] [address] [place] [address] * (ABNORMAL) POCT UA, AUTO W/O SCOPE (04/10/2024 9:34 AM REGISTERED NURSE SUPERVISOR) Color, Urine, POC Yellow Clarity, ur, POC Cloudy(A) Clear Glucose, ur, POC Negative Negative MG/DL Bilirubin, ur, POC Negative Negative, Small, Moderate, Large Ketones, ur, POC Negative Negative Specific [place], POC 1.015 1.003 - 1.030 Blood, ur, POC Negative Negative pH, ur, POC 7.5 5.0 - 8.0 Protein, ur, POC Negative Negative Urobilinogen, Urine, POC 0.2 mg/dL Leukocytes, ur, POC Small(A) Negative Nitrite, ur, POC Negative Negative Appearance, fld Cloudy(A) Clear Urine 04/10/2024 9:34 AM REGISTERED NURSE SUPERVISOR Anjelica Huntley NP POINT OF CARE TEST ORDERABLES Final Result * Diagnostic Mammogram (11/05/2023 3:39 PM CDT) Anatomical Region Laterality Modality Breast Mammography Historical Provider IMG MAMMO PROCEDURES Ca l Result * Hepatitis panel, acute (12/22/2021 11:17 AM CDT) Hep A IgM NON-REACTI VE NON-REACT JUSTICE [facility] Comment: For additional information, please refer to http://education.[employer].Sport Telegram/faq/KCW599 (This link is being provided for informational/ [...] a test for HCV RNA (test code 89008) is suggested. For additional information please refer to http://education.Zizerones/faq/LXG08r4 (This link is being provided for informational/ educational purposes only.) Blood 12/22/2021 11:1 7 AM CDT 12/22/2021 11:18 AM CDT Tashia GRAHAM LAB MICROBIOLOGY - [facility] ORDERABLES Final Result [facility] [address] [place] [address] * DEXA SCAN (11/13/2020) Historical Provider HEALTH MAINTENANCE Edited Result - Final * COLONOSCOPY (03/25/2020 1:48 PM REGISTERED NURSE SUPERVISOR) Anatomical Region Laterality Modality Other Narrative Procedure Note Joseph Guillaume MD PhD - 03/25/2020 1:48 PM CST ENDOSCOPY LAB Patient Name: Maggi De Leon Procedure Date: 03/25/2020 1:48 PM Date of : 1950 Admit Type: Outpatient Age: 69 Gender: Female Attending MD: Joseph Guillaume MD,PHD Room: [facility] ENDOSCOPY ROOM 03 Note Status: Finalized [...] The scope was passed under direct vision.The [id number] was introduced through the anuswith the intention of advancing to the ileum. The scopewas advanced to the sigmoid colon before the procedurewas aborted. Medications were given. The scope waspassed under direct vision. The [id number] was introduced through the anus and advanced [...] During normal business hours - Please call [facility] Coordinator: [phone]. After hours, evening, nights, weekends and holidays- Please call the hospital wrapper stemmer operator at and ask for the GI fellow senior solutions workflow consultant. Attending Participation: I personally performed the [...] Advance Directives For more information, please contact: [phone] * Full Code (Latest Code Status on File) Date Activated Date Inactivated Comments 03/25/2020 11:54 AM 03/25/2020 7:31 PM * Full Code Date Activated Date Inactivated Comments 08/04/2018 10:36 AM 08/04/2018 5:07 PM Care Teams Search Engine Optimization Specialist Relationship Specialty Start Date End Date Anjelica Huntley PROTECTION SPECIALIST [address] [facility] [address] [place] [address] PCP - General Internal Medicine 06/10/22 Buzz Blankenship MD [address] [facility] [address] [place] [address] Consulting Physician Rheumatology 04/14/21
== END 2024-06-24 07:34 | disposition home or self-care (01) ==
PROVIDERS: PCP Nurse Practitioner Family; Visit Provider Internal Medicine Cardiovascular Disease
DX: I82.402 Acute embolism and thrombosis of unspecified deep veins of left lower extremity (principal)
CPT/HCPCS: 93971

== ENCOUNTER 2024-07-21 08:20 | Outpatient (CLI) | payer MEDICARE, OTHER, SELFPAY ==
--- NOTE | ~2024-07-21 | DEXA_ITS ---
Bone Density Report Name: HEIDI DE LEON Age: 73 Sex: Female Ethnicity: Date of : 1950 Indication: osteopenia; height loss; rheumatoid arthritis; Referring Provider: DEB, FATUMA Study: Bone densitometry was performed. Exam Date: July 21, 2024 Accession number: [id number] Bone Density: Region BMD T-score Z-score Classification AP Spine(L1-L4) 0.765 -2.6 -0.3 Osteoporosis Femoral Neck (Left) 0.722 -1.1 0.6 Osteopenia Total Hip (Left) 0.738 -1.7 0.0 Osteopenia World Health Organization criteria for BMD impression classify patients as: Normal (T-score at or above -1.0), Osteopenia (T-score between -1.0 and -2.5), or Osteoporosis (T-score at or below -2.5). 10-year Fracture Risk: FRAX not reported because: Some T-score for Spine Total or Hip Total or Femoral Neck at or below -2.5 Previous Exams: -- Region Exam Age BMD T-score BMD Change BMD Change Date g/cm2 vs Baseline vs Previous -- AP Spine (L1-L4) 07/21/2024 73 0.765 -2.6 -12.2%* -12.2%* 07/27/2018 67 0.871 -1.6 Total Hip(Left) 07/21/2024 73 0.738 -1.7 -8.2%* -8.2%* 07/27/2018 67 0.804 -1.1 -- *Denotes significance at 95% confidence level, LSC for AP Spine = 0.022 g/cm2, LSC for Total Hip = 0.027 g/cm2 Clinical Information Provided by Patient: Has rheumatoid arthritis Has used the following medications: Vitamin D Patient maximum height was 62 Menopause Age: 41 No regular weight bearing exercise Drinks caffeinated beverages Onset of menses at age 14 Number of children 4 Impression: The patient has osteoporosis, based on the Total Spine T-score. The BMD for the AP Spine (L1-L4) decreased, changing by -12.2% since the last DXA exam. The BMD for the Total Hip(Left) decreased, changing by -8.2% since the last DXA exam. Discussion: INCREASED RISK OF FRACTURE. BONE DENSITY IS UNDESIRABLY LOW AT ONE OR MORE SKELETAL SITES, CONSISTENT WITH POSTMENOPAUSAL OSTEOPOROSIS. This patient's lowest T-score meets the World Health Organization's (WHO) criteria for osteoporosis at one or more sites (T-score -2.5 or below). In untreated patients, the risk of osteoporotic fracture increases approximately two-fold for each 1.0 SD decrease in T-score. Low bone density is not the only risk factor for fracture; also consider factors such as patient's age, frailty or poor health, risk of falling, risk of injury, previous osteoporotic fracture, family history of osteoporosis, cigarette smoking, low body weight, etc. Not everyone with low bone mineral density has osteoporosis; osteomalacia and other metabolic bone disorders should also be considered. Patients who have osteoporosis should be evaluated for specific diseases and conditions (secondary causes) that may cause or contribute to bone loss. The [place] Association of Clinical Endocrinologists (AACE) and National Osteoporosis Foundation (NOF) recommend pharmacologic intervention for all postmenopausal women whose T-score is in this range. The patient should follow a healthful lifestyle (good nutrition with adequate calcium and vitamin D, and appropriate weight-bearing exercise). Follow-Up: Consider a repeat BMD and Vertebral Fracture Assessment (VFA) exam in 2 years or sooner if medically necessary, to reassess this patient's status. Reported by: FITZ on 07/21/2024 9:07:00 AM. Reviewed, dictated and finalized at location A.
== END 2024-07-21 08:21 | disposition home or self-care (01) ==
LOC: MICIMG 08:21
PROVIDERS: PCP Nurse Practitioner Family; Visit Provider Nurse Practitioner Family
DX: M81.0 Age-related osteoporosis without current pathological fracture (principal); M85.89 Other specified disorders of bone density and structure, multiple sites; Z78.0 Asymptomatic menopausal state
CPT/HCPCS: 77080

== ENCOUNTER 2024-07-29 09:22 | Outpatient (CLI) | payer MEDICARE, OTHER, SELFPAY ==
--- NOTE | ~2024-07-29 | US_ITS ---
EXAMINATION: US venous doppler [facility] DATE: 07/29/2024 10:30 INDICATION: Left lower limb pain, evaluate for DVT. TECHNIQUE: Grayscale images without and with compression and Doppler images of the left lower extremi ty veins were obtained. COMPARISON: 06/24/2024 FINDINGS: The left common femoral vein, profunda (deep) femoral vein, femoral vein, popliteal vein, peroneal v ein, posterior tibial veins, gastrocnemius vein, and greater saphenous vein are patent. IMPRESSION: Patent left lower extremity veins. No evidence of deep venous thrombosis. Reviewed, dictated and finalized at location K.
--- OUTSIDE RECORDS SUMMARY | 2024-07-29 09:25 | XMS_ITS | Encounter Summary ---
Author Organization [facility] Address [address] [place] [address] Phone Care Team Providers Care It Generalist Name Role Phone Buzz Blankenship MD Unavailable [phone] Anjelica Huntley NP Primary Care Provider [phone] Encounter Details Date Type Department Care Team (Latest Contact Info) Description 07/28/2024 11:15 AM CDT Office Visit [facility] [address] [place] [address] Tashia Kirk PA [address] [place] [address] Polyarthralgia (Primary Dx); Fibromyalgia; Pain of right hand; snf current use of therapeutic drug Social History Tobacco Use Types Packs/Day Years [...] on file Legal 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 Gender Identity Not on file Sexual Orientation Not on file Occupation Industry Job Start Date Job End Date Retired Not on file Not on file Not on file documented as of this encounter Last Filed Vital Signs Vital Sign Reading Time Taken Comments Blood Pressure 130/80 07/28/2024 11:03 AM CDT Pulse 74 07/28/2024 11:03 AM CDT Temperature - - Respiratory Rate - - Oxygen Saturation 94% 07/28/2024 11: 03 AM CDT Inhaled Oxygen Concentration - - Weight 64.8 kg (142 lb 12.8 oz) 025 11:03 AM CDT Height 149.9 cm (4' 11) 07/28/2024 11: 03 AM CDT Body Mass Index 28.84 07/28/2024 11:03 AM CDT documented in this encounter Ordered Prescriptions Prescription Sig Dispense Quantity Refills Last Filled Start Date End Date azaTHIOprine (IMURAN) 50 mg tablet Take 1 tablet (50 mg total) by mouth daily 30 tablet 07/28/2024 01/24/2025 documented in this encounter Progress Notes * Tashia Kirk PA - 07/28/2024 11:15 AM CDT Images from the original note were not included. Subjective/Objective Patient ID: Maggi Kamara is a 73 y.o. female. Chief Complaint Joint pain HPI Returns for routine follow up. Had R 1st CMC joint USG kenalog injection on 05/11/24 and noted mild relief with this. Feels she is noticing increased pain in her hands lately. Also noticing redness/itching on her face/eyebrows and posterior scalp. Has been using witch rahel and lotions with some relief but denies any resolve of this rash/redness. Fhx daughter with psoriasis and she developed psoriasis with Humira. Taking ibuprofen 400mg BID and tylenol 500mg BID for joint pain. Helps a little but only temporarily. Uses frankencense topical and arthritis topical with only mild relief. Tried GLP-1 (wegovy) through PCP. Noted GI s/e and was stopped. Scheduled for SI joint injection on 08/[address] Dos Santos. Denies fevers, infections, mouth sores, cough, dyspnea, n/v. Joint pain today is 5 /10. AM stiffness = 1 hour Review of Systems Constitutional: Positive for fatigue. Negative for chills and fever. HENT: Negative for congestion and mouth sores. Respiratory: Negative for cough and shortness of breath. Cardiovascular: Negative for chest pain. Gastrointestinal: Negative for abdominal pain, diarrhea, nausea and vomiting. Musculoskeletal: Positive for arthralgias and myalgias. Skin: Positive for rash. Vitals: Vitals BP 130/80 Pulse 74 Ht 149.9 cm (4' 11) Wt 64.8 kg (142 lb 12.8 oz) SpO2 94% BMI 28.84 kg/m?? Body mass index is 28.84 kg/m??. Bold X is a current medication. Medication Taking/taken D/C or avoidance reason Hydroxychloroquine Methotrexate -started 10/2021 -stopped 02/2022 x GI s/e, hair thinning Leflunomide Azathioprine -started 07/2024 X Sulfasalazine CellCept Humira -started 12/2021 -stopped 04/2022 x Developed psoriasis-like rash Enbrel x Fatigue, injection site reaction Simponi Cimzia Simponi aria Remicade Cosentyx -started 01/2023 -stopper 01/2023 x Headaches Taltz Orencia Stelara Tremfya Xeljanz -started 10/2022 -stopped 11/2022 x 5mg samples started then increased to 11mg S/e - heart palpitations, headaches, mood changes Rinvoq Avoid Hx WI s/p stent Actemra Kevzara Olumiant Kineret Benlysta Rituxan Otezla NSAIDs Naproxen 500mg BID Nabumetone - GI upset Diclofenac - GI upset, nausea Ibuprofen, naproxen, meloxicam, Celebrex, Voltaren gel Tylenol x Prednisone x Medrol pack - helps IM kenalog - helps Prednisone 20mg - dizziness, insomnia Lyrica x Blurred vision Gabapentin x SNRI x Effexor Cymbalta - insomnia TCA Muscle relaxer x flexeril Opioids x hydrocodone Physical Exam Constitutional: oriented to person, place, and time. appears well-developed and well-nourished. Ambulating with a cane. HENT: Head: Normocephalic. Eyes: Conjunctivae are normal. Pupils are equal and round. Pulmonary/Chest: Effort normal. Musculoskeletal: See cdai Neurological: alert and oriented to person, place, and time. Skin: red patch w/ light scale on posterior scalp. Redness w/ light scaling bilateral eyebrows. Psychiatric: normal mood and affect. speech is normal and behavior is normal. Cognition and memory are normal. Patient Global: 50 / 100 Provider Global: 50 / 100 CDAI: 17 In remission: 0-3 Low: 4-10 Moderate: 11-22 High: 23 or > Labs Lab Results Component Value Date WBC 8.9 09/21/2023 HGB 14.2 09/21/2023 HCT 43.0 09/21/2023 MCV 98.2 09/21/2023 Lab Results Component Value Date GLUCOSE 87 09/21/2023 CALCIUM 10.0 09/21/2023 SODIUM 135 09/21/2023 POTASSIUM 3.6 09/21/2023 CO2 28 09/21/2023 CHLORIDE 93 (L) 09/21/2023 BUNSER 10 09/21/2023 CREATININE 0.78 09/21/2023 Lab Results Component Value Date ALT 25 09/21/2023 AST 36 (H) 09/21/2023 ALKPHOS 74 09/21/2023 BILITOT 0.4 09/21/2023 Lab Results Component Value Date SEDRATE 38 (H) 09/21/2023 Lab Results Component Value Date CRP 7.4 09/21/2023 LABS: 09/21/23: B12 1227, CMP nl, PLT 496, ESR 38, CRP 0.74mg/dL, TSH 2.62, FT 1.0, Vit D 39, RF <14, CCP <16, MVC <20, ferritin 27 10/06/21: RF <14, CCP <16, 14.3.3 eta <0.2, ESR 39, CRP 6.1 04/14/21: Neg 14.3.3 eta, Ca 10.6, Plt 560, ESR 51, CRP 11.2 AVISE 04/14/21: +APRIL 1:160 speckled IMAGING: XR R hand 04/2024: 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 US right hand/wrist (10/05/23):: Mild synovial [...] stable mild thickening of the 2nd PIPJ. XR b/l hands 09/2023: scattered arthritic changes typical of OA, most notable in the IP joint of thethumb and finger and 1st CMC joint. Moderate in the right 1st IP joint, 2nd/3rd DIP joints. US right hand/wrist (10/09/21): The volar 1st [...] and 2nd PIP joints. US right hand/wrist (04/21/21): Small grade 1 power doppler in the 2nd PIP joint. Cortical irregularity without confirmed erosions in the 2nd MCP joint. No significant joint effusions or synovial thickening appreciated on US exam. An additional transverse view of the right knee reveals a small area of hyperechoic reflection and intrarticular aggregate which can be seen with chondrocalcinosis. Assessment/Plan Diagnoses and all orders for this visit: Polyarthralgia (Primary) Assessment & Plan: Prior diagnosis of PsA based on response to systemic steroids, Fhx daughter with psoriasis, and repeat US (2021) showing possible progression of inflammation. She has had s/e to several treatment options and pain is complicated by overlapping fibromyalgia and OA. Repeat evaluation (2023) showed negative RA panel, normal ESR/CRP, OA in both hands on XR, and no significant change on US to suggest worsening inflammatory arthritis. Today, she c/o progression of pain in the hands, particularly the MCP and PIP joints bilaterally. Mild response to OTC ibuprofen, tylenol, and topical analgesics. Possible worsening psoriasis on scalp and eyebrows. -Will trial azathioprine 50mg once daily and monitor for improvement of psoriasis as well as joint pain. -Continue to follow with PCP for fibromyalgia. -Continue to follow with PM&R for chronic pain/DJD. -Continue otc ibuprofen 400mg BID and tylenol 500mg BID. -check baseline labs today. -f/u in 4 weeks. Sooner if needed. Orders: - Comprehensive metabolic panel; Future - CBC with auto differential; Future - Erythrocyte sedimentation rate; Future - CRP (acute phase); Future - TPMT activity profile, RBC; Future Fibromyalgia Assessment & Plan: Previously diagnosed by PCP. C/o diffuse generalized pain. She has failed lyrica, gabapentin, cymbalta, effexor, and flexeril in the past. PCP has her taking prozac for depression/anxiety. She is taking trazadone 75mg qhs for sleep. Unfortunately, additional treatment options are limited. Continue to follow with PCP regarding treatment. Pain of right hand Assessment & Plan: XR showing polyarticular OA. Given USG 1st CMC joint intra-articular kenalog injection on 05/11/24 with mild relief. 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 Assessment & Plan: Hepatitis panel negative: 11/2021 TSPOT negative: 11/2021 Orders: - Comprehensive metabolic panel; Future - CBC with auto differential; Future - TPMT activity profile, RBC; Future Other orders - azaTHIOprine (IMURAN) 50 mg tablet; Take 1 tablet (50 mg total) by mouth daily Tashia Kirk PA-C Cosigned by Buzz Blankenship MD at 07/28/2024 5:14 PM CDT documented in this encounter Miscellaneous Notes * Assessment & Plan Note - Tashia Kirk PA - 07/28/2024 11:48 AM CDTAssociated Problem(s): Polyarthralgia Prior diagnosis of PsA based on response to systemic steroids, Fhx daughter with psoriasis, and repeat US (2021) showing possible progression of inflammation. She has had s/e to several treatment options and pain is complicated by overlapping fibromyalgia and OA. Repeat evaluation (2023) showed negative RA panel, normal ESR/CRP, OA in both hands on XR, and no significant change on US to suggest worsening inflammatory arthritis. Today, she c/o progression of pain in the hands, particularly the MCP and PIP joints bilaterally. Mild response to OTC ibuprofen, tylenol, and topical analgesics. Possible worsening psoriasis on scalp and eyebrows. -Will trial azathioprine 50mg once daily and monitor for improvement of psoriasis as well as joint pain. -Continue to follow with PCP for fibromyalgia. -Continue to follow with PM&R for chronic pain/DJD. -Continue otc ibuprofen 400mg BID and tylenol 500mg BID. -check baseline labs today. -f/u in 4 weeks. Sooner if needed. 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 Given USG 1st CMC joint intra-articular kenalog injection on 05/11/24 with mild relief. * Assessment & Plan Note - Tashia Kirk PA - 07/28/2024 9:48 AM CDT Associated Problem(s): Fibromyalgia Previously diagnosed by PCP. C/o diffuse generalized pain. She has failed lyrica, gabapentin, cymbalta, effexor, and flexeril in the past. PCP has her taking prozac for depression/anxiety. She is taking trazadone 75mg qhs for sleep. Unfortunately, additional treatment options are limited. Continue to follow with PCP regarding treatment. documented in this encounter Plan of Treatment Scheduled Orders Name Type Priority Associated Diagnoses Orde r Schedule Comprehensive metabolic panel Lab Routine Polyarthralgia snf current use of therapeutic drug Expected: 07/28/2024, Expires: 07/28/2025 CBC with auto differential Lab Routine Polyarthralgia snf current use of therapeutic drug Expected: 07/28/2024, Expires: 07/28/2025 Erythrocyte sedimentation rate Lab Routine Polyarthralgia Expected: 07/28/2024, Expires: 07/28/2025 CRP (acute phase) Lab Routine Polyarthralgia Expected: 07/28/2024, Expires: 07/28/2025 TPMT activity profile, RBC Lab Routine Polyarthralgia snf current use of therapeutic drug Expected: 07/28/2024, Expires: 07/28/2025 documented as of this encounter Visit Diagnoses Diagnosis Polyarthralgia- Primary Pain in joint, multiple sites Fibromyalgia Unspecified myalgia and myositis Pain of right hand snf current use of therapeutic drug documented in this encounter Care Teams It Generalist Relationship Specialty Start Date End Date Anjelica Huntley NP [address] [facility] [address] [place] [address] PCP - General Internal Medicine 06/10/22 Buzz Blankenship MD [address] [facility] [address] [place] [address] Consulting Physician Rheumatology 04/14/21 documented as of this encounter
--- OUTSIDE RECORDS SUMMARY | 2024-07-29 09:25 | XMS_ITS | Encounter Summary ---
Author Organization [facility] Address [address] [place] [address] Phone Care Team Providers Care Curator Herbarium Name Role Phone Buzz Blankenship MD Unavailable Anjelica Huntley NP Primary Care Provider [phone] Reason for Visit * Reason Onset Date Comments Offer Sooner Appointment 07/28/2024 Encounter Details Date Type Department Care Team (Late st Contact Info) Description 07/28/2024 Telephone [facility] Orthopaedic Surgery [address] [facility] [address] [place] [address] Tri Cheng CMA Offer Sooner Appointment Social History Tobacco Use Types Packs/Day Years [...] on file 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 Dos Santos. After looking at the pt's past injections I realized the pt had an Left SI joint injection done on 05/12/2024 and the appt that would have been offered for 08/02/2024 would be to soon. Stated to the pt that I apologized for for this and that her currently scheduled appt would be the the soonest she could get her injection with Dr. Dos Santos. * Telephone Encounter - Tri Cheng CMA - 07/28/2024 10:58 AM CDT Called patient to offer her a sooner appointment for her injection with Dr. Dos Santos and received hervm. Vernm asking the pt to return my call if she is interested in a sooner appt. documented in this encounter Plan of Treatment Not on file documented as of this encounter Visit Diagnoses Not on filedocumented in this encounter Care Teams Curator Herbarium Relationship Specialty Start Date End Date Anjelica Huntley NP [address] [facility] [address] [place] [address] PCP - General Internal Medicine 06/10/22 Buzz Blankenship MD [address] [place] [address] Consulting Physician Rheumatology 04/14/21 documented as of this encounter
--- OUTSIDE RECORDS SUMMARY | 2024-07-29 09:25 | XMS_ITS | Encounter Summary ---
Author Organization [facility] Healthcare Address [address] [place] [address] Care Team Providers Care Operating System Designer Name Role Phone Buzz Blankenship MD Unavailable [phone] Anjelica Huntley NP Primary Care Provider [phone] Encounter Details Date Type Department Care Team (Late st Contact Info) Description 07/28/[address] 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 She verbalizes understanding and appreciative of return call. * Telephone Encounter - Krista Palmer - 07/28/2024 1:12 PM CDT Mickie from states a new order is needed for the Venous doppler scheduled tomorrow. Also states this appt was scheduled 07/10 but was listed under STAT order but for some reason wasn't scheduled until 07/29. She is also wanting to know if this was actually supposed to be a STAT order or not. Please advise, thank you. Contact: documented in this encounter Plan of Treatment Not on file documented as of this encounter Visit Diagnoses Not on filedocumented in this encounter Care Teams Operating System Designer Relationship Specialty Start Date End Date Anjelica Huntley NP [address] [facility] [place] [address] PCP - General Internal Medicine 06/10/22 Buzz Blankenship MD [address] [place] [address] Consulting Physician Rheumatology 04/14/21 documented as of this encounter
--- OUTSIDE RECORDS SUMMARY | 2024-07-29 09:26 | XMS_ITS | Encounter Summary ---
Author Organization [facility] Healthcare Address [address] [place] [address] Care Team Providers Care Dredge Pump Operator Name Role Phone Annamaria Bates Primary Care Provider [phone] Reason for Visit * Diagnostic Imaging (Routine) - Pending Review Specialty Diagnoses / Procedures Referred By Douglas t Referred To Contact Procedures Breast Imaging US Outside Reference Referral, Self Referral ID Status Reason Start Date Expiration Date V isits Requested Visits Authorized [id number] Pending Review 07/05/2024 08/04/2025 1 1 Encounter Details Date Type Department Care Team (Late st Contact Info) Description 04/24/2020 12:05 AM PUBLIC HEALTH STAFF NURSE Hospital Encounter [facility] [address] [place] [address] Social History Tobacco Use Types Packs/Day Years [...] on file Legal Sex Female 5:33 AM PUBLIC HEALTH STAFF NURSE Gender Identity Not on file Sexual Orientation Not on file Occupation Industry Job Start Date Job End Date Retired Not on file Not on file Not on file documented as of this encounter Functional Status * Audit-C Score Answer Date of Assessment Author 0 03/30/2023 11:04 AM Jonathan Ackerman CMA * Question Answer Date of Assessment Author Q1: How often do you have a drink containing alcohol? Never 03/30/2023 11:04 AM Jonathan Ackerman CMA Q2: How many drinks containing alcohol do you have on a typical day when you are drinking? Patient does not drink 03/30/2023 11:04 AM Jonathan Ackerman CMA Q3: How often do you have six or more drinks on one occasion? Never 03/30/2023 11:04 AM Jonathan Ackerman CMA documented as of this encounter Plan of Treatment Not on file documented as of this encounter Procedures Procedure Name Priority Date/Time Associated Diagnosis Comments BREAST IMAGING US OUTSIDE REFERENCE Routine 04/24/2020 12:05 AM PUBLIC HEALTH STAFF NURSE documented in this encounter Results * Breast Imaging US Outside Reference (04/24/2020 12:05 AM PUBLIC HEALTH STAFF NURSE) Impressions [facility] - 07/05/2024 8:27 AM CDT These images are for Reference purposes only and have not been reviewed by [facility] Radiology. There will be no report generated by a [facility] Radiologist. Narrative [facility] - 07/05/2024 8:27 AM CDT EXAMINATION: Images For Reference Purposes Only us Self Referral IMG MAMMO PROCEDURES Final Resul t [facility] documented in this encounter Visit Diagnoses Not on filedocumented in this encounter Additional Health Concerns Infection Onset Date Last Indicated Resolved Time Diarrhea 03/30/2023 03/30/2023 04/13/2023 3:06 AM PUBLIC HEALTH STAFF NURSE documented as of this encounter Care Teams Dredge Pump Operator Relationship Specialty Start Date End Date Annamaria Bates PA PCP - General Classifying Machine Operator 10/16/19 12/01/21 documented as of this encounter
--- OUTSIDE RECORDS SUMMARY | 2024-07-29 09:26 | XMS_ITS | Continuity of Care Document ---
Author Organization [facility] Address [address] [place] [address] Phone Care Team Providers Care Doctor Of Naprapathy Name Role Phone Navid Srivastava MD Unavailable Unavailable Procedures Procedure Date Post-op Follow-up Visit Post-op Follow-up Visit After Cataract Laser Surgery Eye Exam & Treatment Corneal Pachymetry Advance Directives Directive Yes / No Effective Date File Name No Information Encounters Encounter Description Practice Location Reason(s) For Visit Diagnoses Date Provider Providers Copied on Encounter [facility], [id number] [place] [address] [address], [place], [place], [id number], tel:[phone] [place] DALJIT Professional No Information 1 Atif Shoemaker. [address] [facility] [place] [id number], [place]. tel:[phone] Referring Provider: Navid Brown [address] [facility] [address], [place], [address] . tel:[phone] [facility], [address], [place], [place], [address], tel:[phone] [address] [place] DALJIT Professional No Information 1 Atif Shoemaker. [address], [facility] [place], [id number], [place]. tel:[phone] Referring Provider: Navid Brown, [address] [facility] [place], [address] . tel:[phone] [facility], [address] [facility] [address], [place], [place], [address], tel:[phone] [address] [place] Professional No Information Oct 3-201 1 Atif Shoemaker. [address] [facility], [facility] [place], [id number], . tel:[phone] Referring Provider: Navid Brown, [address] [facility] [place], [address] . tel:[phone] [facility], [address], [place], [place], [address], tel:[phone] [address] [place] Professional No Information Oct-2 0-201 1 Atif Shoemaker. [address] [facility], [facility] [place], [address], . tel:[phone] Referring Provider: Navid Brown, [address] [facility] [place], [address] . tel:[phone] Family History Family Member Type Diagnosis Age At Onset No Information Payers Payer name Insurance type Covered alliance party ID Authoriza tion(s) No Information Social [...]
--- OUTSIDE RECORDS SUMMARY | 2024-07-29 09:26 | XMS_ITS | Encounter Summary ---
Author Organization [facility] Address [address] [place] [address] Phone Care Team Providers Care Db2 Developer Name Role Phone Buzz Blankenship MD Unavailable [phone] Anjelica Huntley NP Primary Care Provider [phone] Reason for Referral * Diagnostic Imaging (Routine) - Authorized Specialty Diagnoses / Procedures Referred By Douglas isbell Referred To Contact Diagnoses Primary osteoarthritis of left hip Left hip pain Procedures FL Fluoro Guided Injection Hip Left Nilesh Dos Santos MD [address] [facility] [address] [place] [address] Phone: tel: fax: [address] [address] Referral ID Status Reason Start Date Expiration Date V isits Requested Visits Authorized [id number] Authorized 07/28/2024 08/27/2025 1 1 Encounter Details Date Type Department Care Team (Late st Contact Info) Description 07/28/2024 Orders Only [facility] Orthopaedic Surgery [address] [facility] [address] [place] [address] Nilesh Dos Santos MD [address] [facility] [address] [place] [address] Primary osteoarthritis of left hip (Primary Dx); Left hip pain Social History Tobacco Use Types Packs/Day Years [...] on file Legal Sex Female 5:33 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 No If conservative treatment was received at an External Facility, obtain notes before scheduling Is this a repeat injection in the same area? Yes- please note that a repeat steroid injection in the same injection site should be at least 3 months apart unless the provider approves an earlier timeframe Does patient report a consistent minimum of 50% improvement in pain for at least 6 months, or a 50%consistent improvement in performing previously painful movements/activities of daily living (ADLs), compared to baseline measurements using the same scale? Yes Repeat Steroid injection in the same site MUST BE SCHEDULED THREE MONTHS from last steroid injection Allergic to x-ray contrast dye or local anesthetics: No Not Applicable Will you receive any vaccinations including the COVID booster 2 weeks prior to or 2 weeks after your scheduled procedure: No Do you have a pacemaker or defibrillator? Unknown Do you have cardiology clearance to obtain RFA? N/A Are you or plan on becoming prior to the scheduled procedure: No NSAIDS/Blood thinners: Yes Eliquis (apixaban) (STOP for 3 days for Spine Procedures) Not Applicable Monotype Machinist: Not Applicable If patient requires an potato seed cutter, do let radiology scheduling ([phone]) know at the time of scheduling and they will schedule the potato seed cutter for patient Are you on oxygen or have a tracheostomy? (Patients on supplemental oxygen or with current tracheostomy cannot be scheduled at [facility]) No Diabetic: No Not Applicable Confirm patient's insurance: Yes What is patient's BMI (Maximum BMI at [facility] is 50) 28 Patient instructed to come with a class b truck driver?: N/A Patient with commercial insurance or those with Medicare receiving Facet injection informed that ifprocedure is not approved by 3 pm the day prior, it will be rescheduled?: N/A Provided Pre-Procedure Instructions including arrival time: Yes My Chart Remind patient to submit pain diary after their injection: Yes Provided Information about Care Orbit: Yes Does the ordering provider's note have a disability scale? Yes, date 05/22/24 09/29/2022 02/02/2023 08/03/2023 01/11/2024 05/16/2024 05/22/2024 PROMIS Pain Interference 77.8 77.8 71.6 75.3 76.4 70.3 Physical Function V2.0 30 26.9 34 30 34.6 35.5 Anxiety V1.0 70.7 70.5 69.4 67.4 67.2 73.4 Depression 69.5 71.1 60.5 62.2 62.2 69.5 Disability scale must be in the chart for ALL Medicare Facet injection before they will be approved. Use .PROMISALL to pull in disability scale into the chart for [facility] ortho patients. Patient encouraged to call with issues/concerns. documented in this encounter Plan of Treatment Scheduled Orders Name Type Priority Associated Diagnoses Orde r Schedule FL Fluoro Guided Injection Hip Left Imaging Schedule Routine, Read Routine (OP Routine) Primary osteoarthritis of left hip Left hip pain Expected: 08/27/2024, Expires: 10/28/2024 documented as of this encounter Visit Diagnoses Diagnosis Primary osteoarthritis of left hip- Primary Left hip pain Pain in joint, pelvic region and thigh documented in this encounter Care Teams Db2 Developer Relationship Specialty Start Date End Date Anjelica Huntley NP [address] [facility] [address] [place] [address] PCP - General Internal Medicine 06/10/22 Buzz Blankenship MD [address] [facility] [address] [place] [address] Consulting Physician Rheumatology 04/14/21 documented as of this encounter
--- OUTSIDE RECORDS SUMMARY | 2024-07-29 09:26 | XMS_ITS | Referral Summary ---
Author Organization [facility] Address [address] [place] [address] Care Team Providers Care Color Maker Formulator Name Role Phone Buzz Blankenship MD Unavailable [phone] Anjelica Huntley NP Primary Care Provider [phone] Encounters Date Type Department Care Team Description 07/28/2024 Orders Only [facility] Orthopaedic Surgery [address] [facility] [address] [place] [address] Nilesh Dos Santos MD Primary osteoarthritis of left hip (Primary Dx); Left hip pain 07/28/2024 Telephone [facility] Cardiology [address] [place] [address] Sergei Richards MD 07/28/2024 Telephone [facility] Orthopaedic Surgery [address] [facility] 2nd Floor [address] [place] [phone] Tri Cheng CMA Offer Sooner Appointment 07/28/2024 11:15 AM CDT Office Visit [facility] [address] [place] [address] Tashia Kirk PA Polyarthralgia (Primary Dx); Fibromyalgia; Pain of right hand; rn long term care current use of therapeutic drug 07/11/2024 Orders Only [facility] Orthopaedic Surgery [address] [facility] [address] [place] [phone] Nilesh Dos Santos MD Chronic sacroiliac joint pain (Primary Dx) 06/29/2024 Telephone [facility] Cardiology [address] [facility] [address] [place] [address] Sergei Richrads MD 06/24/2024 Orders Only [facility] Health Information Management [address] [place] [address] Sergei Richards MD 06/08/2024 Telephone [facility] Cardiology [address] [place] [address] [address] [place] [address] Sergei Richards MD 06/05/2024 Telephone [facility] Family Medicine [address] [facility] [address] [place] [address] Anjelica Huntley NP 05/30/2024 8:00 AM CDT Office Visit [facility] Internal Medicine at [place] [address] [facility] [address] [place] [address] Anjelica Huntley NP Weight gain (Primary Dx); BMI 26.0-26.9,adult; Mixed hyperlipidemia; Primary insomnia; Post-menopausal 05/29/2024 11:45 AM CDT Office Visit [facility] Cardiology [address] [place] [address] [address] [place] [address] Sergei Richards MD History of non-ST elevation myocardial infarction (NSTEMI) (Primary Dx); Essential hypertension; Coronary artery disease involving [place] coronary artery of [place] heart without angina pectoris; Pure hypercholesterolemia 05/26/2024 Orders Only [facility] Family Medicine [address] [place] [address] Kota Long MD 05/22/2024 1:00 PM CDT Ancillary Procedure [facility] Orthopaedic Surgery [address] [facility] 1st Floor [address] [place] [address] 05/22/2024 1:00 PM CDT Procedure visit [facility] Orthopaedic Surgery [address] [facility] 1st Floor [address] [place] [address] Mario Aj MD Primary osteoarthritis of both knees 05/19/2024 8:46 AM CDT - 05/19/2024 11:59 PM CDT Hospital Encounter [facility] [address] [facility] [address] [place] [phone] Nilesh Dos Santos MD Primary osteoarthritis of left hip; Left hip pain Discharge Disposition: Discharge to home or self care 05/17/2024 Telephone Radiology - [address] [facility] [address] [place] [address] Radha Fox, 05/17/2024 Orders Only [facility] Orthopaedic Surgery [address] [place] [address] 2nd [address] [place] [address] Nilesh Dos Santos MD Primary osteoarthritis of left hip (Primary Dx); Left hip pain 05/16/2024 Results Follow-Up [facility] Orthopaedic Surgery [address] [place] [address] 2nd Floor [address] [place] [address] Nilesh Dos Santos MD XR Pelvis 1 or 2 Views 05/16/2024 9:40 AM CDT - 05/16/2024 11:59 PM CDT Hospital Encounter [facility] [address] [place] [address] Left hip pain Discharge Disposition: Discharge to home or self care 05/16/2024 8:45 AM CDT Office Visit [facility] Orthopaedic Surgery [address] [place] [address] 2nd [address] [place] [phone] Nilesh Dos Santos MD Left hip pain (Primary Dx); Primary osteoarthritis of left hip; Chronic sacroiliac joint pain; Lumbar facet joint pain; Lumbar spondylosis; Primary osteoarthritis involving multiple joints 05/12/2024 7:31 AM CDT - 05/12/2024 11:59 PM CDT Hospital Encounter [id number] [address] [facility] [address] [place] [phone] Nilesh Dos Santos MD Chronic sacroiliac joint pain Discharge Disposition: Discharge to home or self care 05/11/2024 Orders Only [address] [phone] Bzuz Blankenship MD 05/11/2024 12:55 PM CDT - 05/11/2024 11:59 PM CDT Hospital Encounter [facility] [address] [place] [address] Localized primary osteoarthritis of carpometacarpal (CMC) joint of right wrist Discharge Disposition: Discharge to home or self care 05/09/2024 Telephone Radiology - [address] [facility] [address] [place] [address] Radha Fox, 05/08/2024 Results Follow-Up [facility] [address] [place] [phone] Tashia Kirk PA SCAN - RADIOLOGY/IMAGING 05/08/2024 Orders Only [facility] [address] [place] [phone] Tashia Kirk PA 05/05/2024 10:00 AM CDT Office Visit [facility] Internal Medicine at [address] [place] [address] Anjelica Huntley NP Weight gain (Primary Dx); BMI 29.0-29.9,adult; Primary insomnia 05/03/2024 Orders Only [facility] Health Information Management [address] [place] [address] Scanning, Provider 05/03/2024 9:15 AM CDT Office Visit [facility] [address] [place] [phone] Tashia Kirk PA Polyarthralgia (Primary Dx); Fibromyalgia; Pain of right hand; Localized primary osteoarthritis of carpometacarpal (CMC) joint of right wrist 05/02/2024 Orders Only [facility] Orthopaedic Surgery [address] [facility] 2nd Floor [address] [place] [address] Nilesh Dos Santos MD Chronic sacroiliac joint pain (Primary Dx) from Last 3 Months Allergies Active Allergy Reactions Criticality Noted Date Comments Bempedoic Acid Other (See comments) Low 11/29/2023 Muscle ache Hydrochlorothiazide Other (See comments) Low 04/20/2012 Hydrocodone Nausea & Vomiting,Dizziness ,Headache,Vomiting Low 05/26/2011 Pregabalin Other (See comments),Agromuloo n Low 10/13/2021 Blurred vision Pain Medicine Vomiting Low 07/24/2019 Penicillins Swelling Medium 03/13/2015 Yewpccc-Gbn-Utz Reductase Inhibitors Muscle pain Medium 03/21/2021 Medications aspirin 81 mg enteric coated tablet Take 1 tablet (81 mg total) by mouth every morning 3 Active folic acid (FOLVITE) 1 mg tabletIndication s:Takes dietary supplements TAKE 1 TABLET BY MOUTH EVERY DAY 90 tablet 1 4 Active traZODone (DESYREL) 100 mg tabletIndication s:insomnia associated with depression Take 1 tablet (100 mg total) by mouth nightly 180 tablet 1 4 Active triamterene-hydr oCHLOROthiazide 37.5-25 mg per tablet/capsuleIn dications:Menier e's disease, unspecified laterality TAKE 1 TABLET DAILY 90 tablet 3 4 Active FLUoxetine (PROzac) 40 mg capsuleIndicatio ns:Anxiety and depression Take 1 capsule (40 mg total) by mouth daily 90 capsule 3 4 10/21/19 25 Active linaCLOtide (Linzess) 145 mcg capsuleIndicatio ns:Irritable bowel syndrome with constipation Take 1 capsule (145 mcg total) by mouth daily 90 capsule 1 4 Active fluticasone propionate (FLONASE) 50 mcg/actuation nasal spray SPRAY 2 SPRAYS INTO EACH NOSTRIL EVERY DAY 48 mL 1 4 Active ondansetron (ZOFRAN) 4 mg tablet Take 1 tablet (4 mg total) by mouth every 8 (eight) hours as needed for nausea or vomiting 20 tablet 1 4 Active HYDROcodone-acet aminophen (NORCO) 5-325 mg per tabletIndication s:Pain Take 0.5-1 tablets by mouth 2 (two) times a day as needed for pain 20 tablet 4 Active Additional Information Patient not taking.Reported on 05/30/2024 naloxone (NARCAN) 4 mg/actuation spray,non-aeroso l Administer 1 spray into affected nostril(s) as needed for opioid reversal or respiratory depression Call 911. Administer a single spray in one nostril. Repeat every 3 minutes as needed if no or minimal response. 2 each 4 Active ALPRAZolam (XANAX) 0.25 mg tabletIndication s:Anxiety Take 1 tablet (0.25 mg total) by mouth 2 (two) times a day as needed for anxiety 60 tablet [address] (NexIUM) 40 mg capsule TAKE 1 CAPSULE DAILY BEFORE BREAKFAST 90 capsule 1 5 Active Eliquis DVT-PE Treat 30D Start 5 mg (74 tabs) tablets,dose pack TAKE BY MOUTH PER PACKAGE DIRECTIONS 5 Active azaTHIOprine (IMURAN) 50 mg tablet Take 1 tablet (50 mg total) by mouth daily 30 tablet 5 01/25/20 25 Active Active Problems Problem Noted Date Diagnosed Date Mixed hyperlipidemia 05/30/2024 Pain of right hand 05/03/2024 Overview (07/28/2024): XR R hand 04/2024: 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 Assessment & Plan (07/28/2024 11:47 AM CDT): XR showing polyarticular OA. Given USG 1st CMC joint intra-articular kenalog injection on 05/11/24 with mild relief. Assessment & Plan (05/08/2024 3:48 PM CDT): [...] Dysuria 03/16/2023 Coronary artery disease invo lving [place] coronary artery of [place] heart without angina pectoris 03/09/2023 History of [...] 05/20/2022 Assessment & Plan (12/29/2022 11:49 AM CHEESEMAKING LABORER): Resolved with kenalog IM. Will defer restarting [...] 03/24/2022 Assessment & Plan (03/24/2022 10:44 AM CHEESEMAKING LABORER): Likely worsened by MTX which was stopped 01/2022. Recommend folic acid up to 3mg daily and biotin. Encouraged to discuss with her lighting equipment operator as well. Primary insomnia 03/13/2022 Assessment & Plan (09/29/2023 9:19 AM CDT): This is a significant, separately identifiable problem that was evaluated and managed on the same day as the wellness exam Dyspnea on exertion 02/04/2022 Overview (02/04/2022): Patient O2 sat is 98%. She does complain of slight chest pressure and shortness of breath. Patient referred to the emergency department for further evaluation [facility] current use of therapeutic drug 2021 Overview (12/25/2021): TSPOT negative: 11/2021 Hepatitis panel negative: 11/2021 Assessment & Plan (07/28/2024 11:47 AM CDT): Hepatitis panel negative: 11/2021 TSPOT negative: 11/2021 Assessment & Plan (10/19/2023 8:42 AM CDT): Hepatitis panel negative: 11/2021 TSPOT negative: 11/2021 Assessment & Plan (09/21/2023 11:22 AM CDT): Hepatitis panel negative: 11/2021 TSPOT negative: 11/2021 Assessment & Plan (01/25/2023 9:31 AM CHEESEMAKING LABORER): Hepatitis panel negative; 11/2021 TSPOT negative: 11/2021 Assessment & Plan (12/29/2022 11:51 AM CHEESEMAKING LABORER): Hepatitis panel negative; 11/2021 TSPOT negative: 11/2021 [...] 11/2021 Assessment & Plan (03/24/2022 10:42 AM CHEESEMAKING LABORER): Hepatitis panel negative; 11/2021 TSPOT negative: 11/2021 Assessment & Plan (01/20/2022 10:27 AM CHEESEMAKING LABORER): Hepatitis panel negative; 11/2021 TSPOT negative: 11/2021 [...] of the 2nd PIPJ. Assessment & Plan (07/28/2024 11:51 AM CDT): Prior diagnosis of PsA based [...] -f/u in 4 weeks. Sooner if needed. Assessment & Plan (05/03/2024 9:13 AM CDT): [...] and Naprosyn. Medrol Dosepaks are not a intermediate solution. As long as her kidney function [...] therapy at the pain [facility] Assessment & Plan (06/04/2021 12:51 PM CDT): She will continue working with rheumatology and neurosurgery. Advised caution on frequency of steroid injections, and advised her to communicate with surgeons prior to receiving them. Fibromyalgia 02/17/2021 Assessment & Plan (07/28/2024 11:48 AM CDT): Previously diagnosed by PCP. C/o diffuse generalized pain. She has failed lyrica, gabapentin, cymbalta, effexor, and flexeril in the past. PCP has her taking prozac for depression/anxiety. She is taking trazadone 75mg qhs for sleep. Unfortunately, additional treatment options are limited. Continue to follow with PCP regarding treatment. Assessment & Plan (05/03/2024 8:25 AM CDT): [...] limited. Assessment & Plan (01/25/2023 9:32 AM CHEESEMAKING LABORER): Previously diagnosed by PCP. C/o diffuse generalized pain. S/e to gabapentin and lyrica so will defer restarting. Recently restarted venlafaxine per PCP for anxiety. Remains on fluoxetine but was increased to 60mg daily per psych. Additional medication options are limited. Assessment & Plan (12/29/2022 11:50 AM CHEESEMAKING LABORER): Previously diagnosed by PCP. C/o diffuse generalized [...] PCP. Assessment & Plan (03/24/2022 10:42 AM CHEESEMAKING LABORER): Previously diagnosed by PCP. C/o diffuse generalized pain. S/e to gabapentin and lyrica so will defer restarting. Currently on venlafaxine and fluoxetine per PCP. Assessment & Plan (01/20/2022 10:27 AM CHEESEMAKING LABORER): Previously diagnosed by PCP. C/o diffuse generalized [...] dizziness. Assessment & Plan (02/17/2021 8:28 PM CHEESEMAKING LABORER): Add gabapentin at hs. Discussed increasing to 100mg bid over the coming week pending symptom improvement. Tremor 01/27/2021 Assessment & Plan (01/27/2021 9:30 AM CHEESEMAKING LABORER): Advised ct of head, eeg, referral to neurology Advised labs today - will notify her of results as they are available Syncope 01/27/2021 Assessment & Plan (02/17/2021 8:26 PM CHEESEMAKING LABORER): Has appt pending for cv that she will keep She will continue to not drive Assessment & Plan (01/27/2021 9:30 AM CHEESEMAKING LABORER): Advised no driving, climbing, or swimming Advised ct of head, eeg, referral to neurology Advised labs today - will notify her of results as they are available Plantar fasciitis, bilateral 11/04/2020 Assessment & Plan (11/04/2020 2:16 PM CDT): Will continue with care per repair manager Thrombophlebitis of superfic ial veins of right [...] 10/08/2020 Assessment & Plan (12/30/2020 8:38 PM CHEESEMAKING LABORER): Decrease maxzide due to hyponatremia Repeat bmp in the next week Assessment & Plan (10/08/2020 6:08 PM CDT): Continue with care per ent We discussed as she has a current rx for valium that we cannot provide her with another at the current time. We discussed that if her ent discontinues writing it for her that pending review of il seamer operator we can further discuss a prescription. Paradoxical vocal fold motion disorder Assessment & Plan (09/12/2020 11:02 AM CDT): I have recommended laryngeal control therapy here at the [facility] in [...] time Assessment & Plan (02/17/2021 8:25 PM CHEESEMAKING LABORER): Stable, continue meds same at this time Assessment & Plan (12/30/2020 8:40 PM CHEESEMAKING LABORER): Decrease prozac to 30mg daily Assessment & [...] needed. Assessment & Plan (12/30/2020 8:39 PM CHEESEMAKING LABORER): Continue with care per GI Due to [...] hematology. Assessment & Plan (12/30/2020 8:40 PM CHEESEMAKING LABORER): Has appt pending with heme/onc that she will keep She was reminded as she previously had a prn valium not to take this on the day that [facility]. Assessment & Plan (11/04/2020 2:15 PM CDT): Continue with care per oncologist Leatha, unspecified 05/10/2020 Assessment & Plan (05/10/2020 12:50 PM CDT): Will evaluate further with labs. Advised her not to adjust doses of medications on her own. She will discontinue indomethacin at this time. Will continue to follow-up with repair manager as planned. Anxiety 04/18/2020 Assessment & Plan (07/10/2022 6:53 PM CDT): As the patient's pain causes depression and depression worsens pain, she may benefit from speaking to a pain psychologist like 1 at the pain center at [facility]. Assessment & Plan (10/13/2021 12:47 PM CDT): Discontinue with xanax. Will restart valium bid/prn anxiety or dizziness. Assessment & Plan (06/04/2021 12:49 PM CDT): Will add a prn xanax as she has discontinued valium. Assessment & Plan (02/17/2021 8:28 PM CHEESEMAKING LABORER): Resume prn valium, advised not taking more than 10mg daily. Advised potential for addictiveness with valium and additionally for sedation as a side effect. She was advised caution on driving after taking due to sedation potential. Assessment & Plan (04/18/2020 10:23 AM CHEESEMAKING LABORER): Continue medication same at this time Rib pain on left side 04/18/2020 Assessment & Plan (04/18/2020 10:23 AM CHEESEMAKING LABORER): We reviewed ct chest, abdominal us. She will continue to exercise 4x/week for 30min each session. Gastric polyp 04/18/2020 Assessment & Plan (04/18/2020 10:23 AM CHEESEMAKING LABORER): Continue with care per gi Lipoma of torso 04/18/2020 Assessment & Plan (04/18/2020 10:23 AM CHEESEMAKING LABORER): Will refer to gen surg to discuss further evaluation and treatment Abdominal pain 03/14/2020 Overview (03/14/2020): Added automatically from request for surgery [id number] Assessment & Plan (07/10/2022 6:50 PM CDT): [...] order and advised to take this to [facility] today. Change in bowel habits 03/14/2020 Overview (03/14/2020): Added automatically from request for surgery [id number] Assessment & Plan (04/02/2023 7:35 PM CHEESEMAKING LABORER): The patient was recently treated with a number of antibiotics and Cosentyx. Even though Cosentyx was discontinued in January, there is an association with triggering a inflammatory bowel disease type condition. We would like to check stool studies including calprotectin to evaluate an infection or inflammatory cause of her symptoms. Hoarseness of voice 02/19/2020 Assessment & Plan (03/20/2020 11:27 AM CHEESEMAKING LABORER): resolved Assessment & Plan (02/19/2020 12:54 PM CHEESEMAKING LABORER): Will send for covid test today. Will notify her of results as available. Advised her in the interim to report to er if worsening. Will start on proventil hfa and change aciphex to dexilant. Positive depression screening 11/14/2019 Assessment & Plan (03/20/2020 11:26 AM CHEESEMAKING LABORER): Continue with prozac. Will add buspar bid, discussed increasing pending response. Breast cyst, right 11/14/2019 Assessment & Plan (04/18/2020 10:22 AM CHEESEMAKING LABORER): Due for repeat imaging in the next [...] 10/16/2019 Assessment & Plan (04/18/2020 10:22 AM CHEESEMAKING LABORER): Advised high fiber heart healthy diet Assessment & Plan (10/16/2019 10:35 AM CDT): will continue with high fiber diet, decreased nuts/seeds followed by condenser tube tender History of right hip replacement 10/16/2019 H/O abdominoplasty 10/16/2019 History of cholecystectomy 10/16/2019 S/P OGPI-BSO 10/16/2019 Sleep disturbance 10/16/2019 Overview (10/16/2019): will [...] available Assessment & Plan (03/24/2019 4:07 PM CHEESEMAKING LABORER): Controlled Statin myopathy 02/28/2018 Pure hypercholesterolemia 06/21/2017 [...] PPI Assessment & Plan (04/18/2020 10:21 AM CHEESEMAKING LABORER): We reviewed egd biopsy results. Will continue with care per gi. Assessment & Plan (03/20/2020 11:27 AM CHEESEMAKING LABORER): Continue with care and testing per GI. Assessment & Plan (02/19/2020 12:54 PM CHEESEMAKING LABORER): Will send for covid test today. Will [...] stimulator. Assessment & Plan (03/24/2022 10:43 AM CHEESEMAKING LABORER): XR L-spine and MRI L-spine revealed multilevel [...] Plan (10/16/2019 10:34 AM CDT): Managed by cushion mat maker via [facility] Osteoarthritis of hip 03/13/2015 Resolved [...] provided Assessment & Plan (03/13/2022 8:16 AM CHEESEMAKING LABORER): Obesity is unchanged. Discussed the patient's BMI. [...] provided Assessment & Plan (03/13/2022 8:16 AM CHEESEMAKING LABORER): Obesity is unchanged. Discussed the patient's BMI. The BMI is above average. BMI management plan is completed. BMI Follow-up includes: nutrition counseling, exercise counseling and education provided. Rheumatoid arthritis involvi ng multiple sites with positive rheumatoid factor 03/13/2022 05/21/19 23 Obesity (BMI 30-39.9) 01/28/20222022 Assessment & Plan (01/28/2022 8:30 AM CHEESEMAKING LABORER): Obesity is unchanged. Discussed the patient's BMI. The BMI is above average. BMI management plan is completed. BMI Follow-up includes: nutrition counseling, exercise counseling and education provided. BMI 30.0-30.9,adult 01/28/2022 03/13/19 23 Assessment & Plan (01/28/2022 8:30 AM CHEESEMAKING LABORER): Obesity is unchanged. Discussed the patient's BMI. [...] and joint pain after starting Plavix following TX s/p stent. Due to increased generalized pain [...] needed. Assessment & Plan (01/25/2023 9:31 AM CHEESEMAKING LABORER): Previously isloated APRIL 1:160 on AVISE with [...] needed Assessment & Plan (12/29/2022 11:49 AM CHEESEMAKING LABORER): Previously isloated APRIL 1:160 on AVISE with [...] well maintained on humira monotherapy however until [id number] when she noted onset of dry, itchy [...] needed. Assessment & Plan (03/24/2022 10:41 AM CHEESEMAKING LABORER): Previously isloated APRIL 1:160 on AVISE with [...] psoriatic arthritis. Will continue humira 40mg SQ [id number]. Recent labs reviewed. Follow up in 4 months. Sooner if needed. Assessment & Plan (01/20/2022 10:29 AM CHEESEMAKING LABORER): Previously isloated APRIL 1:160 on AVISE with [...] a spondyloarthropathy. Will continue humira 40mg SQ [id number] and give this more time to take [...] starting. Will start approval of Humira 40mg [id number]. Patient advised of the side effects of [...] Blankenship. Assessment & Plan (04/29/2021 5:04 PM CHEESEMAKING LABORER): US right hand/wrist (04/21/21): Small grade 1 [...] Blankenship. Assessment & Plan (04/14/2021 5:31 PM CHEESEMAKING LABORER): 70-year-old female with PMHx of FM, gout, [...] 08/20/2021 Assessment & Plan (01/27/2021 9:30 AM CHEESEMAKING LABORER): Advised ct of head, referral to neurology Advised labs today - will notify her of results as they are available Acute cystitis without hematuria 12/17/2020 06/12/2021 Assessment & Plan (12/30/2020 8:40 PM CHEESEMAKING LABORER): resolved Assessment & Plan (12/17/2020 11:07 AM [...] 22 Assessment & Plan (12/30/2020 8:38 PM CHEESEMAKING LABORER): Obesity is unchanged. Discussed the patient's BMI. [...] 11/04/2020 Assessment & Plan (04/18/2020 10:22 AM CHEESEMAKING LABORER): Resolved. We reviewed recent labs. Continue medication [...] planned Assessment & Plan (03/20/2020 11:26 AM CHEESEMAKING LABORER): Continue with care and testing per GI. Retrieve CT from [facility]. Will evaluate further with abdominal US and labs. Hypokalemia 03/20/2020 11/04/2020 Assessment & Plan (08/29/2020 12:31 PM CDT): Seen on labs at [facility]. Repeat potassium level this week Assessment & Plan (04/18/2020 10:22 AM CHEESEMAKING LABORER): Resolved. We reviewed recent labs. Continue medication same at this time. Assessment & Plan (03/20/2020 11:27 AM CHEESEMAKING LABORER): Will reevaluate on labs. Discussed likely resolved as she has stopped the diazide. Cough 02/19/2020 08/20/2021 Assessment & Plan (03/20/2020 11:27 AM CHEESEMAKING LABORER): resolved Assessment & Plan (02/19/2020 12:54 PM CHEESEMAKING LABORER): Will send for covid test today. Will [...] 05/31/19 Assessment & Plan (02/17/2021 8:27 PM CHEESEMAKING LABORER): Encouraged heart healthy diet and exercise Assessment & Plan (05/10/2020 8:33 AM CDT): Obesity is unchanged. Discussed the patient's BMI. The BMI is above average. BMI management plan is completed. BMI Follow-up includes: nutrition counseling, exercise counseling and education provided. Assessment & Plan (04/18/2020 7:47 AM CHEESEMAKING LABORER): Obesity is unchanged. Discussed the patient's BMI. [...] constipation. Assessment & Plan (03/24/2019 4:08 PM CHEESEMAKING LABORER): Improved with diet modification and as neededlaxatives Gastroesophageal reflux dise ase with esophagitis 07/26/2018 05/08/2021 Overview (07/26/2018): Added automatically from request for surgery [id number] Assessment & Plan (11/09/2019 7:29 PM CDT): Unfortunately Dexilant remains a plan exclusion. She can try and get this through [facility]. Alternatively we could offer her Carafate in conjunction with AcipHex. Assessment & Plan (10/16/2019 10:34 AM CDT): Managed by gastroenterology Assessment & Plan (03/24/2019 4:07 PM CHEESEMAKING LABORER): Patient's symptoms her currently manageable with every [...] on file Legal Sex Female 5:33 AM CHEESEMAKING LABORER Gender Identity Not on file Sexual Orientation Not on file Occupation Industry Job Start Date Job End Date Retired Not on file Not on file Not on file Last Filed Vital Signs Vital Sign Reading Time Taken Comments Blood Pressure 130/80 07/28/2024 11:03 AM CDT Pulse 74 07/28/2024 11:03 AM CDT Temperature 36.9 C (98.4 F) 05/30/2024 7:52 AM CDT Respiratory Rate 20 04/25/2024 8:41 AM CHEESEMAKING LABORER Oxygen Saturation 94% 07/28/2024 11: 03 AM CDT Inhaled Oxygen Concentration - - Weight 64.8 kg (142 lb 12.8 oz) 025 11:03 AM CDT Height 149.9 cm (4' 11) 07/28/2024 11: 03 AM CDT Body Mass Index 28.84 07/28/2024 11:03 AM CDT Plan of Treatment Not on file Medical Devices Implanted Type Area Manager Administrative Services Device Identifier Shelf Expiration Date Model / Serial / Lot R-Hip 2014 Right: Hip Procedures Procedure Name Priority Date/Time Associated Diagnosis Comments DEXA AXIAL SKELETON BONE DENSITY 1 OR MORE SITES Schedule Routine, Read Routine (OP Routine) 07/25/2024 3:53 PM CDT Post-menopausal SCAN - RADIOLOGY/IMAGING 06/24/2024 POCT LIPID PANEL Routine 05/29/2024 11:54 AM CDT Coronary artery disease involving [place] coronary artery of [place] heart without angina pectoris Pure hypercholesterolemia LOWER EXTREMITY VENOUS DOPPLER Schedule Routine, Read Routine (OP Routine) 05/26/2024 10:29 AM CDT XR CHEST PA LATERAL 2 VIEWS Schedule Routine, Read Routine (OP Routine) 05/26/2024 8:40 AM CDT [place] ARTHROCENTESIS ASPIR&/INJ MAJOR JT/BURSA W/US Routine 05/22/2024 [...] 1:49 PM CDT SCAN - RADIOLOGY/IMAGING 05/03/2024 DIAGNOSTIC MAMMOGRAM Schedule Routine, Read Routine (OP Routine) 11/05/2023 3:39 PM CDT HEPATITIS PANEL, ACUTE Routine 12/22/2021 11:17 AM CDT Fatigue, unspecified type COLONOSCOPY 03/25/2020 1:48 PM CHEESEMAKING LABORER from Last 3 Months or Most Recently Relevant to Health Maintenance Results * (ABNORMAL) Dexa Axial Skeleton Bone Density 1 or 2 Site (07/25/2024 3:53 PM CDT) SCRIBED DXA T-SCORE 2.5 Anatomical Region Laterality Modality Body N/A Radiographic Tram ging us Anjelica Huntley NP IMG DXA PROCEDURES Final Resu lt * SCAN - RADIOLOGY/IMAGING (06/24/2024) Anatomical Region Laterality Modality Other Sergei Richards MD Ca l Result * POCT lipid panel (05/29/2024 11:54 AM CDT) Cholesterol, POC 248 mg/dL HDL, POC 57 mg/dL Triglycerides, POC 138 mg/dL LDL Cholesterol POC 164 mg/dL Chol/HDL Ratio, POC 2.9 Non-HDL Cholesterol, POC 191 mg/dL Cholesterol Total, POC 248 mg/dL Capillary blood 05/29/2024 1 1:54 AM CDT Sergei Richards MD POINT OF CARE TEST O RDERABLES Final Result * LOWER EXTREMITY VENOUS DOPPLER (05/26/2024 10:29 AM CDT) Anatomical Region Laterality Modality N/A Ultrasound Historical Provider IMG US PROCEDURES Final R esult * XR Chest Pa Lateral 2 Views (05/26/2024 8:40 AM CDT) Anatomical Region Laterality Modality Body, Chest N/A Radiographic Tram ging Historical Provider IMG XR PROCEDURES Final R esult * [place] ARTHROCENTESIS ASPIR&/INJ MAJOR JT/BURSA W/US (05/22/2024 1:00 [...] the provider's procedure/OR operative note for results. Mario Aj MD POCUS ORDERABLES Final R esult Performing Organization Address [facility] Co de Phone Number RAD_PACS_[facility] * FL Fluoro Guided Injection Hip Left (05/19/2024 9:51 AM CDT) Narrative RAD_PACS[facility] - 05/19/2024 9:51 AM CDT The images from this study are not interpreted by Radiology. Please refer to the physician's procedure / OR operative note. Nilesh Dos Santos MD IMG FLUOROSCOPY PROCEDURES Final Result Performing Organization Address [facility] Co de Phone Number RAD_PACS[facility] [...] and agrees with it. Electronically signed by: Hamazh Parra D.O. Narrative 05/16/2024 11:44 AM CDT EXAMINATION: XR PELVIS 1 OR 2 VIEWS HISTORY: Left hip pain COMPARISON: Radiographs 02/02/2023. FINDINGS: Unchanged moderate left hip osteoarthritis. Right total hip arthroplasty is noted. Pubic symphyseal arthrosis with chondrocalcinosis. No acute fracture or dislocation. Normal alignment. Vascular calcifications. Procedure Note Roddy Parraregi Lunaang, - 05/16/2024 EXAMINATION: XR PELVIS 1 OR [...] OR operative note. Nilesh Dos Santos MD IMMaida IR PROCEDURES Final Re sult RAD_PACS[facility] * SCAN - RADIOLOGY/IMAGING (05/08/2024 1:49 PM CDT) Anatomical Region Laterality Modality Other Tashia GRAHAM Final Result * SCAN - RADIOLOGY/IMAGING (05/03/2024) Anatomical Region Laterality Modality Other Provider Scanning Final Result * Diagnostic Mammogram (11/05/2023 3:39 PM CDT) Anatomical Region Laterality Modality Breast Mammography Historical Provider IMMaida MAMMO PROCEDURES Ca l Result * Hepatitis panel, acute (12/22/2021 11:17 AM CDT) Hep A IgM NON-REACTI VE NON-REACT JUSTICE [facility] Comment: For additional information, please refer to http://[employer]/faq/EFU856 (This link is being provided for informational/ [...] a test for HCV RNA (test code 46083) is suggested. For additional information please refer to http://[employer]/faq/UCE08p2 (This link is being provided for informational/ educational purposes only.) Blood 12/22/2021 11:1 7 AM CDT 12/22/2021 11:18 AM CDT Tashia GRAHAM LAB MICROBIOLOGY - NERAL ORDERABLES Final Result [facility] [id number] [id number] * COLONOSCOPY (03/25/2020 1:48 PM CHEESEMAKING LABORER) Anatomical Region Laterality Modality Other Narrative Procedure Note Joseph Guillaume MD PhD - 03/25/2020 1:48 PM CST ENDOSCOPY LAB Patient Name: Maggi De Leon Procedure Date: 03/25/2020 1:48 PM Date of : 1950 Admit Type: Outpatient Age: 69 Gender: Female Attending MD: Joseph Guillaume MD,PHD Room: [facility] ENDOSCOPY ROOM 03 Note Status: Finalized [...] The scope was passed under direct vision.The [id number] was introduced through the anuswith the intention of advancing to the ileum. The scopewas advanced to the sigmoid colon before the procedurewas aborted. Medications were given. The scope waspassed under direct vision. The [id number] was introduced through the anus and advanced [...] business hours - Please call theNurse Coordinator: [phone]. After hours, evening, nights, weekends and holidays- Please call the hospital pipe cleaning machine operator at and ask for the GI fellow orthopedic nurse practitioner. Attending Participation: I personally performed the entire procedure. Electronically signed by Joseph Guillaume MD. Joseph Guillaume MD, PHD 03/25/2020 2:32:06 PM Number of Addenda: 0 Note Initiated On: 03/25/2020 1:48 PM us Joseph Guillaume MD PhD ENDOSCOPY PROCEDURES Ca l Result from Last 3 Months or Most Recently Relevant to Health Maintenance Insurance MEDICARE [employer] MEDICARE [employer] LIFE MEDICARE FOR LIFE FOR LIFE MEDICARE Advance Directives For more information, please contact: [phone] * Full Code (Latest Code Status on File) Date Activated Date Inactivated Comments 03/25/2020 11:54 AM 03/25/2020 7:31 PM * Full Code Date Activated Date Inactivated Comments 08/04/2018 10:36 AM 08/04/2018 5:07 PM Care Teams Color Maker Formulator Relationship Specialty Start Date End Date Anjelica Huntley NP [address] [facility] [address] [place] [address] PCP - General Internal Medicine 06/10/22 Buzz Blankenship MD [address] [place] [address] Consulting Physician Rheumatology 04/14/21
--- OUTSIDE RECORDS SUMMARY | 2024-07-29 09:26 | XMS_ITS | Data Portability ---
Author Organization [employer], [facility] Address [address] [place] [id number] Assessment No assessment recorded. Plan of Treatment Reminders Order Date Submit Date Provider Last Modified By Organization Details Last Modified Time Details Appointments None recorded. Lab None recorded. Referral None recorded. Procedures None recorded. Surgeries None recorded. Imaging ultrasound, lower extremity, nonvascular 2015 016 [email or web address] Not available 6 14:09:41 x-ray, weightbeari ng knee - room 3 2015 Huey [email or web address] Not available 6 18:07:47 Medication Orders None recorded. Patient TargetsNo targets recorded. Patient Instructions Encounter Date Encounter Id Patient Instructions Last Modified By Organization Details Last Modified Time 03/14/2015 [id number] knee arthritis: care instructions Not available 03/20/2015 14:20:20 knee pain or injury: care instructions Not available 03/20/2015 14:20:20 hip arthritis: care instructions Not available 03/20/2015 14:20:20 osteoarthritis: care instructions Not available 03/20/2015 14:20:20 Reason for Referral None Reported. Problems Name Problem SNOMED Code Status Onset Date Resolution Date Notes Provider Name and Address Organization Details Recorded Time Knee pain Active Scot bobby [facility], [facility] 6 14:01:24 Osteoarthritis of hip 596062696 Active Scot bobby Min[facility], [facility] 6 14:01:23 Osteoarthritis of knee 019454923 Active Scot bobby [facility], [facility] 6 14:01:23 Problem Notes None recorded. Procedures Surgical History Date Name Laterality Status Provider Name and Address Organization Details Recorded Time 02/22/18 89 Hysterectomy completed [facility] 03/14/2015 12:39:44 02/22/18 78 [facility]/14/2015 12:39:44 Imaging Results None recorded. Procedure Notes None recorded. Medical Equipment None Reported. Allergies Allergen ID Allergen Name Allergen Category Reaction Reaction Severity Criticality Documentation Date Start Date Code Code System Note Provider Name and Address Organization Details Recorded Time 83651 Product containin g penicilli n (product) medicatio n hives Not available Not available 03/14/2015 71473 8001 SNOMED [facility] 6 12:39:44 32755 tramadol medicatio n vomiting Not available Not available 03/14/2015 79209 RxNorm [facility] 6 12:39:44 Medications Name Sig [...] Details Last Updated DateTime 6 30.2 kg/m2 93726.7 792 g 73 /min 154.94 cm 148 mm[Hg] 95 mm[Hg] [facility] 6 12:39:44 Social History Question Answer Notes LastModified by Organizat ion Details LastModified Time Tobacco Smoking Status Never Smoker [facility] 03/14/2015 12:39:44 Marital Status Informati on not available 03/14/2015 Sex: Unknown Functional Status Question Answer Note LastModified by Organizat ion Details LastModified Time What is your level of alcohol consumption? 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 Family History Relationship Description Onset Age of this Age Resolved Age Notes LastModified by Organization Details LastModified Time Mother Arthritis Not avail able 03/14/2015 12:39:44 Mother Completed stroke Not available 02/23 12:39:44 Medical History Condition Response HIV or AIDS N Coronary Artery Disease N Gout N Kidney Stones N Hyperthyroidism N Head Trauma/Injury N Hernia N Hypothyroidism N Lung Disease N Blood Clots N COPD N Depression Y Pacemaker N Anxiety Disorder N Arthritis Y Cancer N Stroke N Leg or Foot Ulcers N Neck Injury N High Cholesterol N Liver Disease N Rheumatoid Arthritis N Fibromyalgia N Headaches N Kidney Disease N Heart Problems N Migraines N Thyroid Problems N Anemia N Multiple Sclerosis N Ulcers N Heart Attack ([place]) N Diabetes N Bleeding Disorder N Seizures/Epilepsy [...] SNOMED-CT Code Diagnosis ICD10 Code Diagnosis Note [id number] Sharri Jaramillo MD [facility] [address] [address] [facility] [address] [facility] [place] [address] 03/14/2015 12:00:32 03/14/2015 14:09:41 Knee pain 30923114 M25.561 Osteoarthritis of hip 23 5497510 M16.9 Osteoarthr itis of knee 854261085 M17.9 Health Concerns Section Related Observation LastModified by Organization Detai ls LastModified Time None Recorded Concern Status LastModified by Organization Details LastModified Time None Recorded Advance Directives Directive None Recorded Payers Encounter Date Sequence Insurance Name Policy Number Policy Dennison Covered Member ID Dennison Member ID Guarantor Name 03/14/2015 1 *SELF PAY* Th izabela Kamara Notes Date Note Type Note Provider Name and Address Organization Details Recorded Time 03/14/2015 text/html See Dictated NoteReported bypatient.Notes:SE Lo DICTATED NOTES ROBER Calles - [facility], [facility] 03/18/2015 06:21:41 OBGyn Episode No OBEpisode recorded.
--- OUTSIDE RECORDS SUMMARY | 2024-07-29 09:26 | XMS_ITS | Encounter Summary ---
Author Organization [facility] Address [address] [place] [address] Phone Care Team Providers Care Loan And Credit Manager Name Role Phone Era Espnioza MD Primary Care Provider + [phone] Era Espinoza MD Primary Care Provider + [phone] Unknown, Notinfile Primary Care Provider Unavail Annamaria Farooq Primary Care Provider [phone] Buzz Blankenship MD Unavailable [phone] Anjelica Huntley NP Primary Care Provider [phone] Anjelica Huntley NP Primary Care Provider [phone] Encounter Details Date Type Department Care Team [...] on file Legal Sex Female 5:33 AM EMERGENCY SERVICES PROFESSIONAL Gender Identity Not on file Sexual Orientation [...] COVID: Suspected 02/19/2020 02/19/2020 02/19/2020 12:10 PM EMERGENCY SERVICES PROFESSIONAL COVID: Suspected 02/19/2020 02/19/2020 02/21/2020 2:47 PM EMERGENCY SERVICES PROFESSIONAL Respiratory Infection (RANDAL), contact + droplet Comment:Automatically added due to negative COVID-19 result. 02/21/2020 02/21/2020 03/06/2020 3:0 7 AM EMERGENCY SERVICES PROFESSIONAL Diarrhea 03/30/2023 03/30/2023 04/13/2023 3:06 AM EMERGENCY SERVICES PROFESSIONAL documented as of this encounter Care Teams Loan And Credit Manager Relationship Specialty Start Date End Date Era Espinoza MD PCP - General Family Practice 11/22/17 03/07/19 Era Espinoza MD PCP - General Family Practice 03/08/19 10/10/19 Unknown, Notinfile PCP - General 10/11/19 10/15/19 Annamaria Bates PA PCP - General Automotive Design Drafter 10/16/19 12/01/21 Anjelica Huntley INSOLVENCY CONSULTANT [address] [facility] [address] [place] [address] PCP - General Internal Medicine 12/02/21 06/09/22 Anjelica Hnutley INSOLVENCY CONSULTANT [address] [facility] [address] [place] [address] PCP - General Internal Medicine 06/10/22 Buzz Blankenship MD [address] [facility] [facility] [address] [place] [address] Consulting Physician Rheumatology 04/14/21 documented as of this encounter
--- OUTSIDE RECORDS SUMMARY | 2024-07-29 09:26 | XMS_ITS | Encounter Summary ---
Author Organization [facility] Address [address] [place] [address] Care Team Providers Care Tube Teller Name Role Phone Annamaria Bates Primary Care Provider [phone] Buzz Blankenship MD Unavailable [phone] Anjelica Huntley CUBE CUTTER Primary Care Provider [phone] Anjelica Huntley CUBE CUTTER Primary Care Provider [phone] Encounter Details Date Type Department Care Team (Late st Contact Info) Description 05/28/2021 Telephone [facility] Radiology [address] [facility] [address] [place] [address] Whitley De Jesus, RT Social [...] on file Legal Sex Female 5:33 AM ALL ROUND BUTCHER Gender Identity Not on file Sexual Orientation [...] Time Diarrhea 03/30/2023 03/30/2023 04/13/2023 3:06 AM ALL ROUND BUTCHER documented as of this encounter Care Teams Tube Teller Relationship Specialty Start Date End Date Annamaria Bates PA PCP - General Professor Of Music 10/16/19 12/01/21 Anjelica Huntley NP [address] [place] [address] PCP - General Internal Medicine 12/02/21 06/09/22 Anjelica Huntley NP [address] [place] [address] PCP - General Internal Medicine 06/10/22 Buzz Blankenship MD [address] [place] [address] Consulting Physician Rheumatology 04/14/21 documented as of this encounter
--- OUTSIDE RECORDS SUMMARY | 2024-07-29 09:26 | XMS_ITS | CONTINUITY OF CARE DOCUMENT ---
Author Name rosita becker Address Unknown Organization [facility] Address [address] [facility] [address] [place] [address] Phone [phone] Care Team Providers Care Care Assistant Name Role Phone Jonathan MONTENEGRO, Yang Unavailable INSURANCE PROVIDERS Payer name Policy type / Coverage type [place] red republican ID VICTORINA FREGOSO [id number]
--- OUTSIDE RECORDS SUMMARY | 2024-07-29 09:26 | XMS_ITS | Clinical Summary ---
Author Organization [facility] Lazaro Keithdesirae Address [address] [facility] [place] [address] Care Team Providers Care Slice Plug Cutter Operator Helper Name Role Phone Unavailable Primary Care Provider Unavailabl e Allergies Active Allergy Reactions Criticality Noted Date Comments Diphenhydramine-Acetamin ophen Nausea and Vomiting Low 07/24/2019 Ezetimibe Muscle Pain Medium 03/21/2021 Hydrocodone Nausea and Vomiting Low 03/04/2020 Penicillins Swelling Medium 03/13/2015 Pregabalin Other (See Comments) Low 04/14/2022 Blurred vision Ecnqmzq-Nbo-Rea Reductase Inhibitors Muscle Pain Medium 03/21/2021 Tramadol [...] 2 Active fluticasone propionate (FLONASE) 50 mcg/spray [place], Suspension nasal inhaler 2 Active linaCLOtide (Linzess) [...] 03/25/2030 Insurance MEDICARE PART A AND B [facility] [employer]
--- OUTSIDE RECORDS SUMMARY | 2024-07-29 09:26 | XMS_ITS | Encounter Summary ---
Author Organization [facility] Address [address] [place] [address] Phone Care Team Providers Care Radio Interference Supervisor Name Role Phone Era Espinoza MD Primary Care Provider + [phone] Era Espinoza MD Primary Care Provider + [phone] Unknown, Notinfile Primary Care Provider Unavail Annamaria Farooq Primary Care Provider [phone] Buzz Blankenship MD Unavailable [phone] Anjelica Huntley NP Primary Care Provider [phone] Anjelica Huntley NP Primary Care Provider [phone] Encounter Details Date Type Department Care Team [...] on file Legal Sex Female 5:33 AM ROLLING ATTENDANT Gender Identity Not on file Sexual Orientation [...] COVID: Suspected 02/19/2020 02/19/2020 02/19/2020 12:10 PM ROLLING ATTENDANT COVID: Suspected 02/19/2020 02/19/2020 02/21/2020 2:47 PM ROLLING ATTENDANT Respiratory Infection (RANDAL), contact + droplet Comment:Automatically added due to negative COVID-19 result. 02/21/2020 02/21/2020 03/06/2020 3:0 7 AM ROLLING ATTENDANT Diarrhea 03/30/2023 03/30/2023 04/13/2023 3:06 AM ROLLING ATTENDANT documented as of this encounter Care Teams Radio Interference Supervisor Relationship Specialty Start Date End Date Era Espinoza MD PCP - General Family Practice 11/22/17 03/07/19 Era Espinoza MD PCP - General Family Practice 03/08/19 10/10/19 Unknown, Notinfile PCP - General 10/11/19 10/15/19 Annamaria Bates PA PCP - General Range Mounter 10/16/19 12/01/21 Anjelica Huntley MEDICAL OFFICER [address] [facility] [address] [place] [address] PCP - General Internal Medicine 12/02/21 06/09/22 Anjelica Huntley MEDICAL OFFICER [address] [facility] [address] [place] [address] PCP - General Internal Medicine 06/10/22 Buzz Blankenship MD [address] [facility] [address] [place] [address] Consulting Physician Rheumatology 04/14/21 documented as of this encounter
--- OUTSIDE RECORDS SUMMARY | 2024-07-29 09:26 | XMS_ITS | Clinical Summary ---
Author Organization [facility] Address [address] [place] [address] Care Team Providers Care Jalousie Installer Name Role Phone Buzz Blankenship MD Unavailable [phone] Anjelica Huntley NP Primary Care Provider [phone] Allergies Active Allergy Reactions Criticality Noted Date Comments Bempedoic Acid Other (See comments) Low 11/29/2023 Muscle ache Hydrochlorothiazide Other (See comments) Low 04/20/2012 Hydrocodone Nausea & Vomiting,Dizziness ,Headache,Vomiting Low 05/26/2011 Pregabalin Other (See comments),Agitatio n Low 10/13/2021 Blurred vision Pain Medicine Vomiting Low 07/24/2019 Penicillins Swelling Medium 03/13/2015 Vujyamc-Bnb-Frr Reductase Inhibitors Muscle pain Medium 03/21/2021 Medications [...] Dysuria 03/16/2023 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 Will defer restarting [...] 03/24/2022 Assessment & Plan (03/24/2022 10:44 AM LEAD CASHIER): Likely worsened by MTX which was stopped 01/2022. Recommend folic acid up to 3mg daily and biotin. Encouraged to discuss with her tufter as well. Primary insomnia 03/13/2022 Assessment & Plan (09/29/2023 9:19 AM CDT): This is a significant, separately identifiable problem that was evaluated and managed on the same day as the wellness exam Dyspnea on exertion 02/04/2022 Overview (02/04/2022): Patient O2 sat is 98%. She does complain of slight chest pressure and shortness of breath. Patient referred to the emergency department for further evaluation group home current use of therapeutic drug 2021 Overview (12/25/2021): TSPOT negative: 11/2021 Hepatitis panel negative: 11/2021 Assessment & Plan (07/28/2024 11:47 AM CDT): Hepatitis panel negative: 11/2021 TSPOT negative: 11/2021 Assessment & Plan (10/19/2023 8:42 AM CDT): Hepatitis panel negative: 11/2021 TSPOT negative: 11/2021 Assessment & Plan (09/21/2023 11:22 AM CDT): Hepatitis panel negative: 11/2021 TSPOT negative: 11/2021 Assessment & Plan (01/25/2023 9:31 AM LEAD CASHIER): Hepatitis panel negative; 11/2021 TSPOT negative: 11/2021 Assessment & Plan (12/29/2022 11:51 AM LEAD CASHIER): Hepatitis panel negative; 11/2021 TSPOT negative: 11/2021 [...] 11/2021 Assessment & Plan (03/24/2022 10:42 AM LEAD CASHIER): Hepatitis panel negative; 11/2021 TSPOT negative: 11/2021 Assessment & Plan (01/20/2022 10:27 AM LEAD CASHIER): Hepatitis panel negative; 11/2021 TSPOT negative: 11/2021 [...] and Naprosyn. Medrol Dosepaks are not a termite exterminator solution. As long as her kidney function [...] therapy at the pain management Center at [facility] Assessment & Plan (06/04/2021 12:51 PM [...] limited. Assessment & Plan (01/25/2023 9:32 AM LEAD CASHIER): Previously diagnosed by PCP. C/o diffuse generalized pain. S/e to gabapentin and lyrica so will defer restarting. Recently restarted venlafaxine per PCP for anxiety. Remains on fluoxetine but was increased to 60mg daily per psych. Additional medication options are limited. Assessment & Plan (12/29/2022 11:50 AM LEAD CASHIER): Previously diagnosed by PCP. C/o diffuse generalized [...] PCP. Assessment & Plan (03/24/2022 10:42 AM LEAD CASHIER): Previously diagnosed by PCP. C/o diffuse generalized pain. S/e to gabapentin and lyrica so will defer restarting. Currently on venlafaxine and fluoxetine per PCP. Assessment & Plan (01/20/2022 10:27 AM LEAD CASHIER): Previously diagnosed by PCP. C/o diffuse generalized [...] dizziness. Assessment & Plan (02/17/2021 8:28 PM LEAD CASHIER): Add gabapentin at hs. Discussed increasing to 100mg bid over the coming week pending symptom improvement. Tremor 01/27/2021 Assessment & Plan (01/27/2021 9:30 AM LEAD CASHIER): Advised ct of head, eeg, referral to neurology Advised labs today - will notify her of results as they are available Syncope 01/27/2021 Assessment & Plan (02/17/2021 8:26 PM LEAD CASHIER): Has appt pending for cv that she will keep She will continue to not drive Assessment & Plan (01/27/2021 9:30 AM LEAD CASHIER): Advised no driving, climbing, or swimming Advised ct of head, eeg, referral to neurology Advised labs today - will notify her of results as they are available Plantar fasciitis, bilateral 11/04/2020 Assessment & Plan (11/04/2020 2:16 PM CDT): Will continue with care per aids counselor Thrombophlebitis of superfic ial veins of right [...] 10/08/2020 Assessment & Plan (12/30/2020 8:38 PM LEAD CASHIER): Decrease maxzide due to hyponatremia Repeat bmp in the next week Assessment & Plan (10/08/2020 6:08 PM CDT): Continue with care per ent We discussed as she has a current rx for valium that we cannot provide her with another at the current time. We discussed that if her ent discontinues writing it for her that pending review of il manager mechanical maintenance we can further discuss a prescription. Paradoxical vocal fold motion disorder Assessment & Plan (09/12/2020 11:02 AM CDT): I have recommended laryngeal control therapy here at the [facility] in order [...] time Assessment & Plan (02/17/2021 8:25 PM LEAD CASHIER): Stable, continue meds same at this time Assessment & Plan (12/30/2020 8:40 PM LEAD CASHIER): Decrease prozac to 30mg daily Assessment & [...] needed. Assessment & Plan (12/30/2020 8:39 PM LEAD CASHIER): Continue with care per GI Due to [...] hematology. Assessment & Plan (12/30/2020 8:40 PM LEAD CASHIER): Has appt pending with heme/onc that she [...] this time. Will continue to follow-up with aids counselor as planned. Anxiety 04/18/2020 Assessment & Plan (07/10/2022 6:53 PM CDT): As the patient's pain causes depression and depression worsens pain, she may benefit from speaking to a pain psychologist like 1 at the pain center at [facility]. Assessment & Plan (10/13/2021 12:47 PM CDT): Discontinue with xanax. Will restart valium bid/prn anxiety or dizziness. Assessment & Plan (06/04/2021 12:49 PM CDT): Will add a prn xanax as she has discontinued valium. Assessment & Plan (02/17/2021 8:28 PM LEAD CASHIER): Resume prn valium, advised not taking more than 10mg daily. Advised potential for addictiveness with valium and additionally for sedation as a side effect. She was advised caution on driving after taking due to sedation potential. Assessment & Plan (04/18/2020 10:23 AM LEAD CASHIER): Continue medication same at this time Rib pain on left side 04/18/2020 Assessment & Plan (04/18/2020 10:23 AM LEAD CASHIER): We reviewed ct chest, abdominal us. She will continue to exercise 4x/week for 30min each session. Gastric polyp 04/18/2020 Assessment & Plan (04/18/2020 10:23 AM LEAD CASHIER): Continue with care per gi Lipoma of torso 04/18/2020 Assessment & Plan (04/18/2020 10:23 AM LEAD CASHIER): Will refer to gen surg to discuss further evaluation and treatment Abdominal pain 03/14/2020 Overview (03/14/2020): Added automatically from request for surgery [id number] Assessment & Plan (07/10/2022 6:50 PM CDT): [...] order and advised to take this to [facility] today. Change in bowel habits 03/14/2020 Overview (03/14/2020): Added automatically from request for surgery [id number] Assessment & Plan (04/02/2023 7:35 PM LEAD CASHIER): The patient was recently treated with a number of antibiotics and Cosentyx. Even though Cosentyx was discontinued in January, there is an association with triggering a inflammatory bowel disease type condition. We would like to check stool studies including calprotectin to evaluate an infection or inflammatory cause of her symptoms. Hoarseness of voice 02/19/2020 Assessment & Plan (03/20/2020 11:27 AM LEAD CASHIER): resolved Assessment & Plan (02/19/2020 12:54 PM LEAD CASHIER): Will send for covid test today. Will notify her of results as available. Advised her in the interim to report to er if worsening. Will start on proventil hfa and change aciphex to dexilant. Positive depression screening 11/14/2019 Assessment & Plan (03/20/2020 11:26 AM LEAD CASHIER): Continue with prozac. Will add buspar bid, discussed increasing pending response. 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 Will continue with care per gi. Assessment & Plan (03/20/2020 11:27 AM LEAD CASHIER): Continue with care and testing per GI. Assessment & Plan (02/19/2020 12:54 PM LEAD CASHIER): Will send for covid test today. Will [...] stimulator. Assessment & Plan (03/24/2022 10:43 AM LEAD CASHIER): XR L-spine and MRI L-spine revealed multilevel [...] Plan (10/16/2019 10:34 AM CDT): Managed by remediation project engineer via [facility] Osteoarthritis of hip 03/13/2015 [...] provided Assessment & Plan (03/13/2022 8:16 AM LEAD CASHIER): Obesity is unchanged. Discussed the patient's BMI. [...] provided Assessment & Plan (03/13/2022 8:16 AM LEAD CASHIER): Obesity is unchanged. Discussed the patient's BMI. The BMI is above average. BMI management plan is completed. BMI Follow-up includes: nutrition counseling, exercise counseling and education provided. Rheumatoid arthritis involvi ng multiple sites with positive rheumatoid factor 03/13/2022 05/21/19 23 Obesity (BMI 30-39.9) 01/28/20222022 Assessment & Plan (01/28/2022 8:30 AM LEAD CASHIER): Obesity is unchanged. Discussed the patient's BMI. The BMI is above average. BMI management plan is completed. BMI Follow-up includes: nutrition counseling, exercise counseling and education provided. BMI 30.0-30.9,adult 01/28/2022 03/13/19 23 Assessment & Plan (01/28/2022 8:30 AM LEAD CASHIER): Obesity is unchanged. Discussed the patient's BMI. [...] and joint pain after starting Plavix following [place] s/p stent. Due to increased generalized pain [...] needed. Assessment & Plan (01/25/2023 9:31 AM LEAD CASHIER): Previously isloated APRIL 1:160 on AVISE with [...] needed Assessment & Plan (12/29/2022 11:49 AM LEAD CASHIER): Previously isloated APRIL 1:160 on AVISE with [...] needed. Assessment & Plan (03/24/2022 10:41 AM LEAD CASHIER): Previously isloated APRIL 1:160 on AVISE with [...] psoriatic arthritis. Will continue humira 40mg SQ [id number]. Recent labs reviewed. Follow up in 4 months. Sooner if needed. Assessment & Plan (01/20/2022 10:29 AM LEAD CASHIER): Previously isloated APRIL 1:160 on AVISE with [...] a spondyloarthropathy. Will continue humira 40mg SQ [id number] and give this more time to take [...] starting. Will start approval of Humira 40mg [id number]. Patient advised of the side effects of [...] Blankenship. Assessment & Plan (04/29/2021 5:04 PM LEAD CASHIER): US right hand/wrist (04/21/21): Small grade 1 [...] Blankenship. Assessment & Plan (04/14/2021 5:31 PM LEAD CASHIER): 70-year-old female with PMHx of FM, gout, [...] 08/20/2021 Assessment & Plan (01/27/2021 9:30 AM LEAD CASHIER): Advised ct of head, referral to neurology Advised labs today - will notify her of results as they are available Acute cystitis without hematuria 12/17/2020 06/12/2021 Assessment & Plan (12/30/2020 8:40 PM LEAD CASHIER): resolved Assessment & Plan (12/17/2020 11:07 AM [...] 22 Assessment & Plan (12/30/2020 8:38 PM LEAD CASHIER): Obesity is unchanged. Discussed the patient's BMI. [...] 11/04/2020 Assessment & Plan (04/18/2020 10:22 AM LEAD CASHIER): Resolved. We reviewed recent labs. Continue medication [...] planned Assessment & Plan (03/20/2020 11:26 AM LEAD CASHIER): Continue with care and testing per GI. Retrieve CT from [facility]. Will evaluate further with abdominal US and labs. Hypokalemia 03/20/2020 11/04/2020 Assessment & Plan (08/29/2020 12:31 PM CDT): Seen on labs at [facility]. Repeat potassium level this week Assessment & Plan (04/18/2020 10:22 AM LEAD CASHIER): Resolved. We reviewed recent labs. Continue medication same at this time. Assessment & Plan (03/20/2020 11:27 AM LEAD CASHIER): Will reevaluate on labs. Discussed likely resolved as she has stopped the diazide. Cough 02/19/2020 08/20/2021 Assessment & Plan (03/20/2020 11:27 AM LEAD CASHIER): resolved Assessment & Plan (02/19/2020 12:54 PM LEAD CASHIER): Will send for covid test today. Will [...] 05/31/19 Assessment & Plan (02/17/2021 8:27 PM LEAD CASHIER): Encouraged heart healthy diet and exercise Assessment & Plan (05/10/2020 8:33 AM CDT): Obesity is unchanged. Discussed the patient's BMI. The BMI is above average. BMI management plan is completed. BMI Follow-up includes: nutrition counseling, exercise counseling and education provided. Assessment & Plan (04/18/2020 7:47 AM LEAD CASHIER): Obesity is unchanged. Discussed the patient's BMI. [...] constipation. Assessment & Plan (03/24/2019 4:08 PM LEAD CASHIER): Improved with diet modification and as neededlaxatives Gastroesophageal reflux dise ase with esophagitis 07/26/2018 05/08/2021 Overview (07/26/2018): Added automatically from request for surgery [id number] Assessment & Plan (11/09/2019 7:29 PM CDT): Unfortunately Dexilant remains a plan exclusion. She can try and get this through [facility]. Alternatively we could offer her Carafate in conjunction with AcipHex. 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 use of therapeutic drug 07/28/2024 Orders Only [facility] Orthopaedic Surgery [facility] Medical Office Building [address] [place] [phone] Nilesh Dos Santos MD Primary osteoarthritis of left hip (Primary Dx); Left hip pain 07/28/2024 Telephone [facility] Cardiology [address] [place] [address] Sergei Richards MD 07/28/2024 Telephone [facility] Orthopaedic Surgery [address] 2nd Floor [address] [place] [address] Tri Cheng CMA Offer Sooner Appointment 07/11/2024 Orders Only [facility] Orthopaedic Surgery [facility] Medical Office Building [address] [place] [phone] Nilesh Dos Santos MD Chronic sacroiliac joint pain (Primary Dx) 06/29/2024 Telephone [facility] Cardiology [address] [place] [address] [address] [place] [phone] Sergei Richards MD 06/24/2024 Orders Only [facility] [address] [place] [address] Sergei Richards MD 06/08/2024 Telephone [facility] Cardiology [address] [place] [address] [address] [place] [phone] Sergei Richards MD 06/05/2024 Telephone [facility] Family Medicine [address] [place] [address] [address] [place] [address] Anjelica Huntley NP 05/30/2024 8:00 AM CDT Office Visit [facility] Internal Medicine at [address] [place] [address] Anjelica Huntley NP Weight gain (Primary Dx); BMI 26.0-26.9,adult; Mixed hyperlipidemia; Primary insomnia; Post-menopausal 05/29/2024 11:45 AM CDT Office Visit [facility] Cardiology [address] [place] [address] [address] [place] [phone] Sergei Richards MD History of non-ST elevation myocardial infarction (NSTEMI) (Primary Dx); Essential hypertension; Coronary artery disease involving diomede coronary artery of diomede heart without angina pectoris; Pure hypercholesterolemia 05/26/2024 Orders Only [facility] Family Medicine [address] [place] [address] ProviderKota MD 05/22/2024 1:00 PM CDT Ancillary Procedure [facility] Orthopaedic Surgery [address] [facility] 1st Floor [address] [place] [address] 05/22/2024 1:00 PM CDT Procedure visit [facility] Orthopaedic Surgery [address] [facility] 1st Floor [address] [place] [address] Mario Aj MD Primary osteoarthritis of both knees 05/19/2024 8:46 AM CDT - 05/19/2024 11:59 PM CDT Hospital Encounter [facility] [address] [facility] [address] [place] [address] Nilesh Dos Santos MD Primary osteoarthritis of left hip; Left hip pain Discharge Disposition: Discharge to home or self care 05/17/2024 Telephone Radiology - [address] [facility] [address] [place] [address] Radha Fox, RT 05/17/2024 Orders Only [facility] Orthopaedic Surgery [address] [place] [address] 2nd Floor [address] [place] [address] Nilesh Dos Santos MD Primary osteoarthritis of left hip (Primary Dx); Left hip pain 05/16/2024 9:40 AM CDT - 05/16/2024 11:59 PM CDT Hospital Encounter [facility] Radiology at the [facility] [address] [place] [phone] Left hip pain Discharge Disposition: Discharge to home or self care 05/16/2024 8:45 AM CDT Office Visit [facility] Orthopaedic Surgery [address] [place] [address] Floor [address] [place] [address] Nilesh Dos Santos MD Left hip pain (Primary Dx); Primary osteoarthritis of left hip; Chronic sacroiliac joint pain; Lumbar facet joint pain; Lumbar spondylosis; Primary osteoarthritis involving multiple joints 05/16/2024 Results Follow-Up [facility] Orthopaedic Surgery [address] [place] [address] 2nd Floor [address] [place] [address] Nilesh Dos Santos MD XR Pelvis 1 or 2 Views 05/12/2024 7:31 AM CDT - 05/12/2024 11:59 PM CDT Hospital Encounter [facility] [address] [facility] [address] [place] [address] Nilesh Dos Santos MD Chronic sacroiliac joint pain Discharge Disposition: Discharge to home or self care 05/11/2024 12:55 PM CDT - 05/11/2024 11:59 PM CDT Hospital Encounter [facility] [address] [place] [phone] Localized primary osteoarthritis of carpometacarpal (CMC) joint of right wrist Discharge Disposition: Discharge to home or self care 05/11/2024 Orders Only [facility] [address] [place] [phone] Buzz Blankenship MD 05/09/2024 Telephone Radiology - [address] [facility] [address] [place] [address] Radha Fox, 05/08/2024 Results Follow-Up [facility] [address] [place] [phone] Tashia Kirk PA SCAN - RADIOLOGY/IMAGING 05/08/2024 Orders Only [facility] [address] [place] [phone] Tashia Kirk PA 05/05/2024 10:00 AM CDT Office Visit [facility] Internal Medicine at [place] [address] [place] [address] [address] [place] [address] Anjelica Huntley NP Weight gain (Primary Dx); BMI 29.0-29.9,adult; Primary insomnia 05/03/2024 9:15 AM CDT Office Visit [facility] [address] [place] [phone] Tashia Kirk PA Polyarthralgia (Primary Dx); Fibromyalgia; Pain of right hand; Localized primary osteoarthritis of carpometacarpal (CMC) joint of right wrist 05/03/2024 Orders Only [facility] [address] [place] [address] Scanning, Provider 05/02/2024 Orders Only [facility] Orthopaedic Surgery [address] [facility] 2nd Floor [address] [place] [phone] Nilesh Dos Santos MD Chronic sacroiliac joint pain (Primary Dx) from Last 3 Months Immunizations Immunization Administration [...] ed with meds Palpitations Fibromyalgia possibly-to see Field Operations Manager PFO (patent foramen ovale) Low back pain [...] (Added by TW Conv) Cancer Maternal Grandmother Valerians villalobos Alcohol abuse Mother Poppy Family history [...] on file Legal Sex Female 5:33 AM LEAD CASHIER Gender Identity Not on file Sexual Orientation [...] CDT Respiratory Rate 20 04/25/2024 8:41 AM LEAD CASHIER Oxygen Saturation 94% 07/28/2024 11: 03 AM CDT Inhaled Oxygen Concentration - - Weight 64.8 kg (142 lb 12.8 oz) 025 11:03 AM CDT Height 149.9 cm (4' 11) 07/28/2024 11: 03 AM CDT Body Mass Index 28.84 07/28/2024 11:03 AM CDT Plan of Treatment Health Maintenance Due Date Last Done Comments Hepatitis B Screening 11/09/1969 Zoster Vaccine (1 of 2) 11/09/1970 Well Visit 65+ 09/28/2024 09/29/2023, 09/23, 11/04/2020 Influenza Vaccine (Season Ended) 2024 Breast Cancer Screening-Mammogram 11/04/2024 11/05/2023, 11/05/2023, 06/24/2021, Additional history exists Depression Screening 05/30/2025 05/30/2024, 05/05/2024, 04/10/2024, Additional history exists Fall Risk Assessment 05/30/2025 05/30/2024, 05/05/2024, 04/25/2024, Additional history exists Osteoporosis Screening-Bone Density Scan 07/25/2026 07/25/2024, 11/13/2020, 11/13/2020, Additional history exists Colon Cancer Screening-Colonoscopy 03/25/2030 03/25/2020, 11/11/2015 DTaP/Tdap/Td Vaccine (4 - Td or Tdap) 06/07/2031 06/06/2021, 08/02/2015, 09/18/2009 Colon Cancer Screening-CT Colonography Discontinued 03/25/2020, 11/11/2015 Colon Cancer Screening-DNA Stool Discontinued 03/25/19 21, 11/11/2015 Colon Cancer Screening-FIT Discontinued 03/25/2020, Colon Cancer Screening-Sigmoidoscopy Discontinued 03/25/2020, 11/11/2015 Hepatitis C Screening Completed 12/22/2021 Pneumococcal vaccine 65+ Discontinued Medical Devices Implanted Type Area [employer] Device Identifier Shelf Expiration Date Model / Serial / Lot R-Hip 2014 Right: Hip Procedures Procedure Name Priority Date/Time Associated Diagnosis Comments DEXA AXIAL SKELETON BONE DENSITY 1 OR MORE SITES Schedule Routine, Read Routine (OP Routine) 07/25/2024 3:53 PM CDT Post-menopausal SCAN - RADIOLOGY/IMAGING 06/24/2024 POCT LIPID PANEL Routine 05/29/2024 11:54 AM CDT Coronary artery disease involving diomede coronary artery of diomede heart without angina pectoris Pure hypercholesterolemia LOWER EXTREMITY VENOUS DOPPLER Schedule Routine, Read Routine (OP Routine) 05/26/2024 10:29 AM CDT XR CHEST PA LATERAL 2 VIEWS Schedule Routine, Read Routine (OP Routine) 05/26/2024 8:40 AM CDT UT ARTHROCENTESIS ASPIR&/INJ MAJOR JT/BURSA W/US Routine 05/22/2024 [...] Fatigue, unspecified type COLONOSCOPY 03/25/2020 1:48 PM LEAD CASHIER from Last 3 Months or Most Recently Relevant to Health Maintenance Results * (ABNORMAL) Dexa Axial Skeleton Bone Density 1 or 2 Site (07/25/2024 3:53 PM CDT) SCRIBED DXA T-SCORE 2.5 Anatomical Region Laterality Modality Body N/A Radiographic Tram ging Anjelica Huntley LABORER POLE CREW IMG DXA PROCEDURES Final Resu lt * [...] Capillary blood 05/29/2024 1 1:54 AM CDT Result [facility] Sergei Richards MD POINT OF CARE TEST O RDERABLES Final Result * LOWER EXTREMITY VENOUS DOPPLER (05/26/2024 10:29 AM CDT) Anatomical Region Laterality Modality N/A Ultrasound Result [facility] Historical Provider IMG US PROCEDURES Final R esult * XR Chest Pa Lateral 2 Views (05/26/2024 8:40 AM CDT) Anatomical Region Laterality Modality Body, Chest N/A Radiographic Tram ging Result [facility] Historical Provider MD GUO XR PROCEDURES Final R esult * UT ARTHROCENTESIS ASPIR&/INJ MAJOR JT/BURSA W/US (05/22/2024 1:00 [...] note. us Nilesh Dos Santos MD IMG IR PROCEDURES Final Re sult RAD_PACS[facility] * SCAN - RADIOLOGY/IMAGING (05/08/2024 1:49 PM CDT) Anatomical Region Laterality Modality Other us Tashia GRAHAM Final Result * SCAN - RADIOLOGY/IMAGING (05/03/2024) Anatomical Region Laterality Modality Other us Provider Scanning Final Result * Diagnostic Mammogram (11/05/2023 3:39 PM CDT) Anatomical Region Laterality Modality Breast Mammography us Historical Provider IMG MAMMO PROCEDURES Ca l Result * Hepatitis panel, acute (12/22/2021 11:17 AM CDT) Hep A IgM NON-REACTI VE NON-REACT JUSTICE [facility] Comment: For additional information, please refer to http://Case Rover.BonzerDarg/faq/QZX198 (This link is being provided for informational/ [...] a test for HCV RNA (test code 13492) is suggested. For additional information please refer to http://Case Rover.Pro.com.Insight Guru/faq/QCQ51k4 (This link is being provided for informational/ educational purposes only.) Blood 12/22/2021 11:1 7 AM CDT 12/22/2021 11:18 AM CDT Tashia GRAHAM LAB MICROBIOLOGY - NERAL ORDERABLES Final Result [facility] [id number] [address] [id number] * COLONOSCOPY (03/25/2020 1:48 PM LEAD CASHIER) Anatomical Region Laterality Modality Other Narrative Procedure Note Joseph Guillaume MD PhD - 03/25/2020 1:48 PM CST ENDOSCOPY LAB Patient Name: Maggi De Leon Procedure Date: 03/25/2020 1:48 PM Date of : 1950 Admit Type: Outpatient Age: 69 Gender: Female Attending MD: Joseph Guillaume MD,PHD Room: [facility] ENDOSCOPY ROOM 03 Note Status: Finalized [...] The scope was passed under direct vision.The [id number] was introduced through the anuswith the intention of advancing to the ileum. The scopewas advanced to the sigmoid colon before the procedurewas aborted. Medications were given. The scope waspassed under direct vision. The [id number] was introduced through the anus and advanced [...] During normal business hours - Please call [facility] Coordinator: [phone]. After hours, evening, nights, weekends and holidays- Please call the hospital felt hat pouncing operator hand at and ask for the GI fellow chronometer tester. Attending Participation: I personally performed the entire procedure. Electronically signed by Joseph Guillaume MD. Joseph Guillaume MD, PHD 03/25/2020 2:32:06 PM Number of Addenda: 0 Note Initiated On: 03/25/2020 1:48 PM Joseph Guillaume MD PhD ENDOSCOPY PROCEDURES Ca l Result from Last 3 Months or Most Recently Relevant to Health Maintenance Insurance [place] [place] [address] MEDICARE FOR LIFE MEDICARE FOR LIFE FOR LIFE MEDICARE Advance Directives For more information, please contact: [phone] * Full Code (Latest Code Status on File) Date Activated Date Inactivated Comments 03/25/2020 11:54 AM 03/25/2020 7:31 PM * Full Code Date Activated Date Inactivated Comments 08/04/2018 10:36 AM 08/04/2018 5:07 PM Care Teams Jalousie Installer Relationship Specialty Start Date End Date Anjelica Huntley NP [address] [facility] [address] [place] [address] PCP - General Internal Medicine 06/10/22 Buzz Blankenship MD [address] [place] [address] Consulting Physician Rheumatology 04/14/21
--- OUTSIDE RECORDS SUMMARY | 2024-07-29 09:26 | XMS_ITS | Encounter Summary ---
Author Organization [facility] Address [address] [place] [address] Phone Care Team Providers Care Transportation Refrigeration Technician Name Role Phone Buzz Blankenship MD Unavailable [phone] Anjelica Hnutley NP Primary Care Provider [phone] Encounter Details Date Type Department Care Team (Late st Contact Info) Description 09/29/2022 Orders Only [facility]R [phone] Scanning, Provider Social History Tobacco Use Types [...] on file Legal Sex Female 5:33 AM HEBREW CANTOR Gender Identity Not on file Sexual Orientation [...] Time Diarrhea 03/30/2023 03/30/2023 04/13/2023 3:06 AM HEBREW CANTOR documented as of this encounter Care Teams Transportation Refrigeration Technician Relationship Specialty Start Date End Date Anjelica Huntley NP [address] [facility] [address] [place] [address] PCP - General Internal Medicine 06/10/22 Buzz Blankenship MD [address] [facility] [address] [place] [address] Consulting Physician Rheumatology 04/14/21 documented as of this encounter
--- OUTSIDE RECORDS SUMMARY | 2024-07-29 09:26 | XMS_ITS | Encounter Summary ---
Author Organization [facility] Healthcare Address [address] [place] [address] Care Team Providers Care Biophysics Scientist Name Role Phone Annamaria Bates Primary Care Provider [phone] Reason for Visit * Diagnostic Imaging (Routine) - Pending Review Specialty Diagnoses / Procedures Referred By Douglas t Referred To Contact Procedures Breast Imaging US Outside Reference Referral, Self Referral ID Status Reason Start Date Expiration Date V isits Requested Visits Authorized [id number] Pending Review 07/05/2024 08/04/2025 1 1 Encounter Details Date Type Department Care Team (Late st Contact Info) Description 04/24/2020 Hospital Encounter [facility] Imaging [address] [place] [address] Social History Tobacco Use Types Packs/Day Years [...] on file Legal Sex Female 5:33 AM CHANNEL PROCESS SUPERVISOR Gender Identity Not on file Sexual [...] BREAST IMAGING US OUTSIDE REFERENCE Routine 04/24/2020 12:00 AM CHANNEL PROCESS SUPERVISOR documented in this encounter Results * Breast Imaging US Outside Reference (04/24/2020 12:00 AM CHANNEL PROCESS SUPERVISOR) Impressions [facility]MAMMO[facility] - 07/05/2024 8:27 AM CDT These images are for Reference purposes only and have not been reviewed by [facility] Radiology. There will be no report generated by a [facility] Radiologist. Narrative [facility]_MAMMO[facility] - 07/05/2024 8:27 AM CDT EXAMINATION: Images For Reference Purposes Only us Self Referral IMG MAMMO PROCEDURES Final Resul t [facility]MAMMO[facility] documented in this encounter Visit Diagnoses Not on filedocumented in this encounter Additional Health Concerns Infection Onset Date Last Indicated Resolved Time Diarrhea 03/30/2023 03/30/2023 04/13/2023 3:06 AM CHANNEL PROCESS SUPERVISOR documented as of this encounter Care Teams Biophysics Scientist Relationship Specialty Start Date End Date Annamaria Bates PA PCP - General Homogenizer Operator 10/16/19 12/01/21 documented as of this encounter
--- OUTSIDE RECORDS SUMMARY | 2024-07-29 09:26 | XMS_ITS | Encounter Summary ---
Author Organization [facility] Address [address] [place] [address] Phone Care Team Providers Care Draughtsman Name Role Phone Era Espinoza MD Primary Care Provider [phone] Era Espinoza MD Primary Care Provider [phone] Unknown, Notinfile Primary Care Provider Unavail Annamaria Farooq Primary Care Provider [phone] Buzz Blankenship MD Unavailable [phone] Anjelica Huntley NP Primary Care Provider [phone] Anjelica Huntley ROCK MASON APPRENTICE Primary Care Provider [phone] Encounter Details Date Type Department Care Team [...] on file Legal Sex Female 5:33 AM REAL ESTATE CLOSING COORDINATOR Gender Identity Not on file Sexual [...] COVID: Suspected 02/19/2020 02/19/2020 02/19/2020 12:10 PM REAL ESTATE CLOSING COORDINATOR COVID: Suspected 02/19/2020 02/19/2020 02/21/2020 2:47 PM REAL ESTATE CLOSING COORDINATOR Respiratory Infection (RANDAL), contact + droplet Comment:Automatically added due to negative COVID-19 result. 02/21/2020 02/21/2020 03/06/2020 3:0 7 AM REAL ESTATE CLOSING COORDINATOR Diarrhea 03/30/2023 03/30/2023 04/13/2023 3:06 AM REAL ESTATE CLOSING COORDINATOR documented as of this encounter Care Teams Draughtsman Relationship Specialty Start Date End Date Era Espinoza MD PCP - General Family Practice 11/22/17 03/07/19 Era Espinoza MD PCP - General Family Practice 03/08/19 10/10/19 Unknown, Notinfile PCP - General 10/11/19 10/15/19 Annamaria Bates PA PCP - General Pension Administrator 10/16/19 12/01/21 Anjelica Huntley ROCK [employer]ON APPRENTICE [address] [place] [address] PCP - General Internal Medicine 12/02/21 06/09/22 Anjelica Huntley NP [address] [facility] [address] [place] [address] PCP - General Internal Medicine 06/10/22 Buzz Blankenship MD [address] [place] [address] Consulting Physician Rheumatology 04/14/21 documented as of this encounter
--- OUTSIDE RECORDS SUMMARY | 2024-07-29 09:26 | XMS_ITS | Encounter Summary ---
Author Organization [facility] Healthcare Address [address] [place] [address] Care Team Providers Care Commercial Management Accountant Name Role Phone Buzz Blankenship MD Unavailable [phone] Anjelica Huntley NP Primary Care Provider [phone] Encounter Details Date Type Department Care Team (Late st Contact Info) Description 2022 Telephone [facility] [address] [facility] [address] [place] [address] Emili Goode, RT Social History Tobacco [...] file Legal Sex Female 5:33 AM TECHNICAL SUPPORT ENGINEER Gender Identity Not on file Sexual [...] Time Diarrhea 03/30/2023 03/30/2023 04/13/2023 3:06 AM TECHNICAL SUPPORT ENGINEER documented as of this encounter Care Teams Commercial Management Accountant Relationship Specialty Start Date End Date Anjelica Huntley NP [address] [facility] [address] [place] [address] PCP - General Internal Medicine 06/10/22 Buzz Blankenship MD [address] [facility] [address] [place] [address] Consulting Physician Rheumatology 04/14/21 documented as of this encounter
--- OUTSIDE RECORDS SUMMARY | 2024-07-29 09:26 | XMS_ITS | Encounter Summary ---
Author Organization [facility] Healthcare Address [address] [place] [address] Care Team Providers Care Small Battery Plate Assembler Name Role Phone Annamaria Bates Primary Care Provider [phone] Reason for Visit * Diagnostic Imaging (Routine) - Pending Review Specialty Diagnoses / Procedures Referred By Contac t Referred To Contact Procedures Breast Imaging Diagnostic Outside Reference Referral, Self Referral ID Status Reason Start Date Expiration Date V isits Requested Visits Authorized [id number] Pending Review 07/05/2024 08/04/2025 1 1 Encounter Details Date Type Department Care Team (Late st Contact Info) Description 04/24/2020 12:10 AM CLINICAL BUSINESS ANALYST Hospital Encounter [facility] Imaging [address] [place] [address] Social History Tobacco Use Types Packs/Day Years [...] on file Legal Sex Female 5:33 AM CLINICAL BUSINESS ANALYST Gender Identity Not on file Sexual Orientation [...] Priority Date/Time Associated Diagnosis Comments BREAST IMAGING MG DIAGNOSTIC OUTSIDE REFERENCE Routine 04/24/2020 12:10 AM CLINICAL BUSINESS ANALYST documented in this encounter Results * Breast Imaging Diagnostic Outside Reference (04/24/2020 12:10 AM CLINICAL BUSINESS ANALYST) Impressions [facility]MO[facility] - 07/05/2024 8:27 AM CDT These images are for Reference purposes only and have not been reviewed by [facility] Radiology. There will be no report generated by a [facility] Radiologist. Narrative RAD[facility]MAMMO[facility] - 07/05/2024 8:27 AM CDT EXAMINATION: Images For Reference Purposes Only us Self Referral IMG MAMMO PROCEDURES Final Resul t [facility] documented in this encounter Visit Diagnoses Not on filedocumented in this encounter Additional Health Concerns Infection Onset Date Last Indicated Resolved Time Diarrhea 03/30/2023 03/30/2023 04/13/2023 3:06 AM CLINICAL BUSINESS ANALYST documented as of this encounter Care Teams Small Battery Plate Assembler Relationship Specialty Start Date End Date Annamaria Bates PA PCP - General Stewarding Supervisor 10/16/19 12/01/21 documented as of this encounter
== END 2024-07-29 09:23 | disposition home or self-care (01) ==
PROVIDERS: PCP Nurse Practitioner Family; Visit Provider Internal Medicine Cardiovascular Disease
DX: I80.01 Phlebitis and thrombophlebitis of superficial vessels of right lower extremity (principal)
CPT/HCPCS: 93971

== ENCOUNTER 2024-09-15 13:59 | Emergency (ER) | payer MEDICARE, OTHER, SELFPAY ==
[2024-09-15] VITALS (30 sets, daily range): BP systolic 125–153; BP diastolic 48–72; PULSE 64–78; RESP 9–22; TEMP 36.4–36.8; O2SAT 95–100
--- NOTE | ~2024-09-15 | CT_ITS ---
EXAMINATION: CT brain wo con DATE: 09/15/2024 15:06 INDICATION: Altered mental status. Headache. TECHNIQUE: Computed tomography (CT) of the head was performed without intravenous contrast. Sagittal and coronal reconstructions were performed. The mA was adjusted according to patient size. Iterative reconstruction technique was employed. The dose-length product was 681.00 mGy-cm. COMPARISON: head CT dated 02/24/2023 FINDINGS: No acute intracranial hemorrhage, acute infarction or abnormal extra axial fluid collection. There is mild scattered white matter hypoattenuation consistent with chronic small vessel ischemic disease. S ymmetric prominence of the sulci and subarachnoid spaces overlying the convexities consistent with mi ld to moderate age-appropriate diffuse cerebral volume loss. Ventricles are normal and symmetric. No mass/mass effect. Changes of bilateral intraocular lens replacement. The orbits and mastoid air cells are normal. Dependently layering mucus in the right sphenoid sinus. Intracranial calcified cerebral atherosclerosis is noted. IMPRESSION: 1. Stable appearance of age-related changes including mild to moderate diffuse volume loss and mild s cattered white matter hypoattenuation consistent with chronic small vessel ischemic disease. No acute intracranial process. Reviewed, dictated and finalized at location A. IMPRESSION: 1. Stable appearance of age-related changes including mild to moderate diffuse volume loss and mild scattered white matter hypoattenuation consistent with chr onic small vessel ischemic disease. No acute intracranial process.
--- NOTE | ~2024-09-15 | XR_ITS ---
EXAM/PROCEDURE: XR chest 2V - 09/15/2024 15:15 CDT HISTORY: 73 years old Female with chest pain TECHNIQUE: Two view(s) of the chest. COMPARISON: None available. FINDINGS: LUNGS/ PLEURA: No focal consolidation. No appreciable pneumothorax or large pleural effusion. HEART/ MEDIASTINUM: Heart appears normal in size. BONES: No acute osseous abnormality. OTHER: Right upper quadrant cholecystectomy clips. IMPRESSION: No acute process. Reviewed, dictated and finalized at location A. IMPRESSION: No acute process.
--- NOTE | ~2024-09-15 | CT_ITS ---
EXAMINATION: CTA chest PE abdomen pel DATE: 09/15/2024 21:38 INDICATION: Chest pain and shortness of breath. Abdominal pain. TECHNIQUE: Computed tomography (CT) pulmonary angiogram of the chest was performed with 100 mL Omnipa que-350 intravenous contrast. Additional 3D reconstructions utilizing coronal maximum intensity proje ction (MIP) were performed. CT of the abdomen and pelvis was performed with intravenous contrast util izing the same contrast bolus following a short delay. Automated exposure control and iterative recon struction technique were employed. The dose-length product was 577.91 mGy-cm. COMPARISON: None FINDINGS: Chest: No pulmonary embolism. Mild basilar atelectasis in the lingula. Additional mild discoid atelectasis i n bilateral lower lobes. Calcified nodules in the intersegment right upper lobe with calcified medias tinal lymph nodes consistent with old granulomatous disease. No pneumonia, pulmonary edema, pleural e ffusion or pneumothorax. Heart size is normal. Atherosclerotic coronary artery calcification. Coronar y stenting at the right coronary artery. No pericardial effusion. Thoracic aorta is normal in caliber with no dissection. No pathologically enlarged thoracic lymphadenopathy. Mild thoracic spondylosis. Abdomen/pelvis: Cholecystectomy clips at the gallbladder fossa. There are a few small hepatic calcifications consiste nt with old granulomatous disease. Spleen, pancreas, bilateral adrenal glands and right kidney are no rmal. There are couple subcentimeter low-attenuation left renal cyst. There are few scattered clonic diverticula without adjacent inflammatory stranding to suggest diverticular colitis. Small bowel and appendix are normal. Bladder is normal. The uterus is not identified and has likely been surgically r esected. No free intraperitoneal gas or fluid. No pathologically enlarged abdominal or pelvic lymphad enopathy. Mild lumbar dextrocurvature with moderate to severe spondylosis. Moderate left hip osteoart hritis and right total hip arthroplasty. IMPRESSION: 1. No acute cardiopulmonary disease or acute intra-abdominal/pelvic process. Reviewed, dictated and finalized at location A.
--- NOTE | ~2024-09-15 | US_ITS ---
EXAMINATION: US venous doppler [facility] DATE: 09/15/2024 15:05 INDICATION: Left lower limb swelling TECHNIQUE: Grayscale ultrasound images without and with compression and Doppler ultrasound images of the left lower extremity veins were obtained. COMPARISON: None. FINDINGS: The visualized portions of left common femoral vein, profunda (deep) femoral vein, femoral vein, popl iteal vein, peroneal veins, posterior tibial veins, gastrocnemius vein and greater saphenous vein out flow are patent. IMPRESSION: 1. No deep venous thrombosis in the left lower limb. Reviewed, dictated and finalized at location A.
--- NOTE | ~2024-09-15 | XR_ITS ---
EXAM/ PROCEDURE: XR shoulder LT min 2V - 09/15/2024 15:15 CDT HISTORY: 73 years old Female with L shoulder pain COMPARISON: None available TECHNIQUE: Three view(s) FINDINGS/ IMPRESSION: There are no fractures or dislocations.Joint space narrowing, subchondral sclerosis, subchondral cyst formation and osteophyte formation, compatible with mild osteoarthritis. Focal calcification overlying the humeral head may represent calcific tendinitis. Clinical correlatio n is recommended. Reviewed, dictated and finalized at location A.
--- OUTSIDE RECORDS SUMMARY | 2024-09-15 14:05 | XMS_ITS | Clinical Summary ---
Author Organization [facility] Lazaro Keithdesirae Address [address] [place] [address] Care Team Providers Care Continuous Washer Operator Name Role Phone Unavailable Primary Care Provider Unavailabl e Allergies Active Allergy Reactions Criticality Noted Date Comments Diphenhydramine-Acetamin ophen Nausea and Vomiting Low 07/24/2019 Ezetimibe Muscle Pain Medium 03/21/2021 Hydrocodone Nausea and Vomiting Low 03/04/2020 Penicillins Swelling Medium 03/13/2015 Pregabalin Other (See Comments) Low 04/14/2022 Blurred vision Ivmqcuf-Jhc-Ecx Reductase Inhibitors Muscle Pain Medium 03/21/2021 Tramadol [...] 2 Active fluticasone propionate (FLONASE) 50 mcg/spray [place], Suspension nasal inhaler 2 Active linaCLOtide (Linzess) [...] 02/17/2021, Additional history exists INFLUENZA VACCINE (#1) 2024 DTAP/TDAP/TD VACCINES (3 - T d or Tdap) 08/01/2025 08/02/2015, 09/18/2009 OSTEOPOROSIS SCREENING 11/13/2025 11/13/2020, 2018 RSV VACCINE (60+ or ) (1 - 1-dose 75+ series) 11/09/2026 COLORECTAL SCREENING 03/25/2030 03/25/2020, 03/25/19 Colorectal Cancer Screening 03/25/2030 Insurance MEDICARE PART A AND B [facility] Amina
--- OUTSIDE RECORDS SUMMARY | 2024-09-15 14:05 | XMS_ITS | Encounter Summary ---
Author Organization [facility] Healthcare Address [address] [place] [address] Care Team Providers Care Principal Statistical Scientist Name Role Phone Annamaria Bates Primary Care Provider [phone] Buzz Blankenship MD Unavailable [phone] Anjelica Huntley LABORER BEAM HOUSE Primary Care Provider [phone] Anjelica Huntley LABORER BEAM HOUSE Primary Care Provider [phone] Encounter Details Date Type Department Care Team (Late st Contact Info) Description 05/28/2021 Telephone [facility] Radiology [address] [facility] [address] [place] [address] Whitley De Jesus, RT Social [...] on file Legal Sex Female 5:33 AM NATIONAL ACCOUNTS RECRUITER Gender Identity Not on file Sexual Orientation [...] Time Diarrhea 03/30/2023 03/30/2023 04/13/2023 3:06 AM NATIONAL ACCOUNTS RECRUITER documented as of this encounter Care Teams Principal Statistical Scientist Relationship Specialty Start Date End Date Annamaria Bates PA PCP - General Group Director Experience 10/16/19 12/01/21 Anjelica Hunltey LABORER BE[employer] HOUSE [address] [place] [address] PCP - General Internal Medicine 12/02/21 06/09/22 Anjelica Huntley LABORER BEAM HOUSE [address] [place] [address] PCP - General Internal Medicine 06/10/22 Buzz Blankenship MD [address] [place] [address] Consulting Physician Rheumatology 04/14/21 documented as of this encounter
--- OUTSIDE RECORDS SUMMARY | 2024-09-15 14:05 | XMS_ITS | Referral Summary ---
Author Organization [facility] Address [address] [place] [address] Care Team Providers [employer] Name Role Phone Buzz Blankenship MD Unavailable [phone] Anjelica Huntley NP Primary Care Provider [phone] Encounters Date Type Department Care Team Description 09/13/2024 Telephone [facility] Orthopaedic Surgery [address] [place] [address] 1st Floor [address] [place] [address] Mario Aj MD 09/08/2024 Telephone [facility] [address] [place] [phone] Ml Queen 08/30/2024 Results Follow-Up [facility] [address] [place] [phone] Tashia Kirk PA CBC with auto differential, Comprehensive metabolic panel, CRP (acute phase), Erythrocyte sedimentation rate 08/29/2024 10:00 AM CDT Office Visit [facility] [address] [place] [address] Tashia Kirk PA Polyarthralgia (Primary Dx); Fibromyalgia; [facility] current use of therapeutic drug 08/21/2024 Telephone [facility] Orthopaedic Surgery [address] [facility] Medical Office Building 4 [address] [place] [phone] Francine Isaac LPN 08/18/2024 9:15 AM CDT - 08/18/2024 11:59 PM CDT Hospital Encounter [facility] [address] [facility] [address] [place] [phone] Nilesh Dos Santos MD Chronic sacroiliac joint pain Discharge Disposition: Discharge to home or self care 08/15/2024 Telephone Radiology - 969 Ortho [address] [facility] [address] [place] [address] Radha Fox, 08/15/2024 Results Follow-Up [facility] Dermatology [facility] [address] [place] [phone] Jelly Rodríguez MD Surgical pathology 08/11/2024 Orders Only [facility] [address] [place] [address] Jelly Rodríguez MD Neoplasm of skin 08/11/2024 10:45 AM CDT Office Visit [facility] D[facility]at[facility] [address] [place] [phone] Jelly Rodríguez MD Seborrheic keratosis (Primary Dx); Neoplasm of skin; Carey angioma; Lentigines; Multiple benign nevi 08/10/2024 Orders Only [facility] [address] [place] [phone] Tashia Kirk PA 08/10/2024 Telephone [facility] [address] [place] [address] lM Queen Flare 08/04/2024 Results Follow-Up [facility] [address] [place] [phone] Tashia Kirk PA Comprehensive metabolic panel, CBC with auto differential, Erythrocyte sedimentation rate, Additional followed-up results: 2 08/03/2024 Results Follow-Up [facility] Cardiology [address] [facility] [address] [place] [address] Sergei Richards MD SCAN - RADIOLOGY/IMAGING 08/02/2024 Orders Only [facility] Family Medicine [address] [place] [address] Kota Long MD 08/01/2024 Orders Only [facility] Internal Medicine [facility] [place] [address] [place] [address] [address] [place] [phone] Kota Long MD 07/29/2024 Orders Only [facility] [address] [place] [address] Sergei Richards MD 07/28/2024 Orders Only [facility] Orthopaedic Surgery [address] [facility] Office Building [address] [place] [phone] Nilesh Dos Santos MD Primary osteoarthritis of left hip (Primary Dx); Left hip pain 07/28/2024 Telephone [facility] Cardiology [address] [place] [address] [place] [phone] Sergei Richards MD 07/28/2024 Telephone [facility] Orthopaedic Surgery [address] [facility] 2nd Floor [address] [place] [phone] Tri Cheng CMA Offer Sooner Appointment 07/28/2024 11:15 AM CDT Office Visit [facility] [address] [place] [address] Tashia Kirk PA Polyarthralgia (Primary Dx); Fibromyalgia; Pain of right hand; [facility] current use of therapeutic drug 07/11/2024 Orders Only [facility] Orthopaedic Surgery [address] [facility] Office [facility] [address] [place] [phone] Nilesh Dos Santos MD Chronic sacroiliac joint pain (Primary Dx) 06/29/2024 Telephone [facility] Cardiology [address] [place] [address] [place] [phone] Sergei Richards MD 06/24/2024 Orders Only [facility] [address] [place] [phone] Sergei Richards MD from Last 3 Months Allergies Active Allergy Reactions Criticality Noted Date Comments Bempedoic Acid Other (See comments) Low 11/29/2023 Muscle ache Hydrochlorothiazide Other (See comments) Low 04/20/2012 Hydrocodone Nausea & Vomiting,Dizziness ,Headache,Vomiting Low 05/26/2011 Pregabalin Other (See comments),Agitatio n Low 10/13/2021 Blurred vision Pain Medicine Vomiting Low 07/24/2019 Penicillins Swelling Medium 03/13/2015 Hjixlwo-Wck-Uxb Reductase Inhibitors Muscle pain Medium 03/21/2021 Medications aspirin 81 mg enteric coated tablet Take 1 tablet (81 mg total) by mouth every morning 02/22/20 23 Active traZODone (DESYREL) 100 mg tabletIndicatio ns:insomnia associated with depression Take 1 tablet (100 mg total) by mouth nightly 180 tablet 1 09/29/19 24 Active FLUoxetine (PROzac) 40 mg capsuleIndicati [...] MOUTH PER PACKAGE DIRECTIONS 05/27/19 25 Active predniSONE (DELTASONE) 5 mg tablet Take 4 tablets by mouth daily x3 days, then 3 tabs daily x3 days, then 2 tabs daily x3 days, then 1 tab daily x3 days. 30 tablet 08/11/19 25 Active folic acid (FOLVITE) 1 mg tabletIndicatio ns:Takes dietary supplements Take 1 tablet (1,000 mcg total) by mouth daily 90 tablet 1 08/15/19 25 Active azaTHIOprine (IMURAN) 50 mg tablet Take 1 tablet (50 mg total) by mouth 2 (two) times a day 180 tablet 08/30/19 25 Active triamterene-hyd roCHLOROthiazid e 37.5-25 mg per tablet/capsuleI ndications:Meni ere's disease, unspecified laterality TAKE 1 TABLET DAILY 90 tablet 3 09/16/19 25 Active triamterene-hyd roCHLOROthiazid e 37.5-25 mg per tablet/capsuleI ndications:Meni ere's disease, unspecified laterality TAKE 1 TABLET DAILY 90 tablet 3 10/11/19 24 2024 Discontinued azaTHIOprine (IMURAN) 50 mg tablet Take 1 tablet (50 mg total) by mouth daily 30 tablet 07/29/19 25 2024 Discontinued azaTHIOprine (IMURAN) 50 mg tablet TAKE 1 TABLET BY MOUTH EVERY DAY 90 tablet 1 08/22/19 25 2024 Discontinued(R eorder) Active Problems Problem Noted Date Diagnosed Date [...] Dysuria 03/16/2023 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 Will defer [...] 03/24/2022 Assessment & Plan (03/24/2022 10:44 AM LUNCH TRUCK OPERATOR): Likely worsened by MTX which was stopped 01/2022. Recommend folic acid up to 3mg daily and biotin. Encouraged to discuss with her orthopedic nurse as well. Primary insomnia 03/13/2022 Assessment & Plan (09/29/2023 9:19 AM CDT): This is a significant, separately identifiable problem that was evaluated and managed on the same day as the wellness exam Dyspnea on exertion 02/04/2022 Overview (02/04/2022): Patient O2 sat is 98%. She does complain of slight chest pressure and shortness of breath. Patient referred to the emergency department for further evaluation [facility] current use of therapeutic drug 2021 Overview (12/25/2021): TSPOT negative: 11/2021 Hepatitis panel negative: 11/2021 Assessment & Plan (08/29/2024 9:00 AM CDT): Hepatitis panel negative: 11/2021 TSPOT negative: 11/2021 TPMT nl (13): 07/2024 Assessment & Plan (07/28/2024 11:47 AM CDT): Hepatitis panel negative: 11/2021 TSPOT negative: 11/2021 Assessment & Plan (10/19/2023 8:42 AM CDT): Hepatitis panel negative: 11/2021 TSPOT negative: 11/2021 Assessment & Plan (09/21/2023 11:22 AM CDT): Hepatitis panel negative: 11/2021 TSPOT negative: 11/2021 Assessment & Plan (01/25/2023 9:31 AM LUNCH TRUCK OPERATOR): Hepatitis panel negative; 11/2021 TSPOT negative: 11/2021 Assessment & Plan (12/29/2022 11:51 AM LUNCH TRUCK OPERATOR): Hepatitis panel negative; 11/2021 TSPOT negative: [...] 11/2021 Assessment & Plan (03/24/2022 10:42 AM LUNCH TRUCK OPERATOR): Hepatitis panel negative; 11/2021 TSPOT negative: 11/2021 Assessment & Plan (01/20/2022 10:27 AM LUNCH TRUCK OPERATOR): Hepatitis panel negative; 11/2021 TSPOT negative: [...] with cardiology. Palpitations 03/21/2021 Polyarthralgia 02/17/2021 Overview (08/04/2024): 07/2024: TPMT nl (13) 09/21/23: B12 1227, CMP nl, PLT 496, [...] of the 2nd PIPJ. Assessment & Plan (08/29/2024 8:59 AM CDT): Prior diagnosis of PsA based [...] on US to suggest worsening inflammatory arthritis. Since last visit, we started azathioprine 50mg daily. -Increase azathioprine 50mg BID and monitor for improvement of psoriasis as well as joint pain. -Continue to follow with PCP for fibromyalgia. -Continue to follow with PM&R for chronic pain/DJD. -Continue otc ibuprofen 400mg BID and tylenol 500mg BID. -Check routine labs today. -f/u in 4 weeks. Sooner if needed. Assessment & Plan (07/28/2024 11:51 AM CDT): [...] and Naprosyn. Medrol Dosepaks are not a assisted solution. As long as her kidney function [...] therapy at the pain management Center at [facility] Assessment & Plan (06/04/2021 12:51 PM CDT): She will continue working with rheumatology and neurosurgery. Advised caution on frequency of steroid injections, and advised her to communicate with surgeons prior to receiving them. Fibromyalgia 02/17/2021 Assessment & Plan (08/29/2024 8:59 AM CDT): Previously diagnosed by PCP. C/o diffuse generalized pain. She has failed lyrica, gabapentin, cymbalta, effexor, and flexeril in the past. -PCP has her taking prozac for depression/anxiety. -She is taking trazadone 75mg qhs for sleep. -Unfortunately, additional treatment options are limited. -Continue to follow with PCP regarding treatment. Assessment & Plan (07/28/2024 11:48 AM CDT): [...] limited. Assessment & Plan (01/25/2023 9:32 AM LUNCH TRUCK OPERATOR): Previously diagnosed by PCP. C/o diffuse generalized pain. S/e to gabapentin and lyrica so will defer restarting. Recently restarted venlafaxine per PCP for anxiety. Remains on fluoxetine but was increased to 60mg daily per psych. Additional medication options are limited. Assessment & Plan (12/29/2022 11:50 AM LUNCH TRUCK OPERATOR): Previously diagnosed by PCP. C/o diffuse [...] PCP. Assessment & Plan (03/24/2022 10:42 AM LUNCH TRUCK OPERATOR): Previously diagnosed by PCP. C/o diffuse generalized pain. S/e to gabapentin and lyrica so will defer restarting. Currently on venlafaxine and fluoxetine per PCP. Assessment & Plan (01/20/2022 10:27 AM LUNCH TRUCK OPERATOR): Previously diagnosed by PCP. C/o diffuse [...] dizziness. Assessment & Plan (02/17/2021 8:28 PM LUNCH TRUCK OPERATOR): Add gabapentin at hs. Discussed increasing to 100mg bid over the coming week pending symptom improvement. Tremor 01/27/2021 Assessment & Plan (01/27/2021 9:30 AM LUNCH TRUCK OPERATOR): Advised ct of head, eeg, referral to neurology Advised labs today - will notify her of results as they are available Syncope 01/27/2021 Assessment & Plan (02/17/2021 8:26 PM LUNCH TRUCK OPERATOR): Has appt pending for cv that she will keep She will continue to not drive Assessment & Plan (01/27/2021 9:30 AM LUNCH TRUCK OPERATOR): Advised no driving, climbing, or swimming Advised ct of head, eeg, referral to neurology Advised labs today - will notify her of results as they are available Plantar fasciitis, bilateral 11/04/2020 Assessment & Plan (11/04/2020 2:16 PM CDT): Will continue with care per windows software developer Thrombophlebitis of superfic ial veins of right [...] 10/08/2020 Assessment & Plan (12/30/2020 8:38 PM LUNCH TRUCK OPERATOR): Decrease maxzide due to hyponatremia Repeat bmp in the next week Assessment & Plan (10/08/2020 6:08 PM CDT): Continue with care per ent We discussed as she has a current rx for valium that we cannot provide her with another at the current time. We discussed that if her ent discontinues writing it for her that pending review of [place] drug abuse resistance education officer we can further discuss a prescription. Paradoxical vocal fold motion disorder Assessment & Plan (09/12/2020 11:02 AM CDT): I have recommended laryngeal control therapy here at the [facility] in order to [...] time Assessment & Plan (02/17/2021 8:25 PM LUNCH TRUCK OPERATOR): Stable, continue meds same at this time Assessment & Plan (12/30/2020 8:40 PM LUNCH TRUCK OPERATOR): Decrease prozac to 30mg daily Assessment [...] needed. Assessment & Plan (12/30/2020 8:39 PM LUNCH TRUCK OPERATOR): Continue with care per GI Due [...] hematology. Assessment & Plan (12/30/2020 8:40 PM LUNCH TRUCK OPERATOR): Has appt pending with heme/onc that she will keep She was reminded as she previously had a prn valium not to take this on the day [facility] Assessment & Plan (11/04/2020 2:15 PM CDT): Continue with care per oncologist Gout, unspecified 05/10/2020 Assessment & Plan (05/10/2020 12:50 PM CDT): Will evaluate further with labs. Advised her not to adjust doses of medications on her own. She will discontinue indomethacin at this time. Will continue to follow-up with windows software developer as planned. Anxiety 04/18/2020 Assessment & Plan (07/10/2022 6:53 PM CDT): As the patient's pain causes depression and depression worsens pain, she may benefit from speaking to a pain psychologist like 1 at the pain center at [facility]. Assessment & Plan (10/13/2021 12:47 PM CDT): Discontinue with xanax. Will restart valium bid/prn anxiety or dizziness. Assessment & Plan (06/04/2021 12:49 PM CDT): Will add a prn xanax as she has discontinued valium. Assessment & Plan (02/17/2021 8:28 PM LUNCH TRUCK OPERATOR): Resume prn valium, advised not taking more than 10mg daily. Advised potential for addictiveness with valium and additionally for sedation as a side effect. She was advised caution on driving after taking due to sedation potential. Assessment & Plan (04/18/2020 10:23 AM LUNCH TRUCK OPERATOR): Continue medication same at this time Rib pain on left side 04/18/2020 Assessment & Plan (04/18/2020 10:23 AM LUNCH TRUCK OPERATOR): We reviewed ct chest, abdominal us. She will continue to exercise 4x/week for 30min each session. Gastric polyp 04/18/2020 Assessment & Plan (04/18/2020 10:23 AM LUNCH TRUCK OPERATOR): Continue with care per gi Lipoma of torso 04/18/2020 Assessment & Plan (04/18/2020 10:23 AM LUNCH TRUCK OPERATOR): Will refer to gen surg to discuss further evaluation and treatment Abdominal pain 03/14/2020 Overview (03/14/2020): Added automatically from request for surgery [id number] Assessment & Plan (07/10/2022 6:50 PM CDT): [...] order and advised to take this to [facility] today. Change in bowel habits 03/14/2020 Overview (03/14/2020): Added automatically from request for surgery [id number] Assessment & Plan (04/02/2023 7:35 PM LUNCH TRUCK OPERATOR): The patient was recently treated with a number of antibiotics and Cosentyx. Even though Cosentyx was discontinued in January, there is an association with triggering a inflammatory bowel disease type condition. We would like to check stool studies including calprotectin to evaluate an infection or inflammatory cause of her symptoms. Hoarseness of voice 02/19/2020 Assessment & Plan (03/20/2020 11:27 AM LUNCH TRUCK OPERATOR): resolved Assessment & Plan (02/19/2020 12:54 PM LUNCH TRUCK OPERATOR): Will send for covid test today. Will notify her of results as available. Advised her in the interim to report to er if worsening. Will start on proventil hfa and change aciphex to dexilant. Positive depression screening 11/14/2019 Assessment & Plan (03/20/2020 11:26 AM LUNCH TRUCK OPERATOR): Continue with prozac. Will add buspar bid, discussed increasing pending response. 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 Will continue with care per gi. Assessment & Plan (03/20/2020 11:27 AM LUNCH TRUCK OPERATOR): Continue with care and testing per GI. Assessment & Plan (02/19/2020 12:54 PM LUNCH TRUCK OPERATOR): Will send for covid test today. [...] stimulator. Assessment & Plan (03/24/2022 10:43 AM LUNCH TRUCK OPERATOR): XR L-spine and MRI L-spine revealed [...] Plan (10/16/2019 10:34 AM CDT): Managed by pediatric nurse via [facility] Osteoarthritis of hip 03/13/2015 Resolved [...] provided Assessment & Plan (03/13/2022 8:16 AM LUNCH TRUCK OPERATOR): Obesity is unchanged. Discussed the patient's [...] provided Assessment & Plan (03/13/2022 8:16 AM LUNCH TRUCK OPERATOR): Obesity is unchanged. Discussed the patient's BMI. The BMI is above average. BMI management plan is completed. BMI Follow-up includes: nutrition counseling, exercise counseling and education provided. Rheumatoid arthritis involvi ng multiple sites with positive rheumatoid factor 03/13/2022 05/21/19 Obesity (BMI 30-39.9) 01/28/20222022 Assessment & Plan (01/28/2022 8:30 AM LUNCH TRUCK OPERATOR): Obesity is unchanged. Discussed the patient's BMI. The BMI is above average. BMI management plan is completed. BMI Follow-up includes: nutrition counseling, exercise counseling and education provided. BMI 30.0-30.9,adult 01/28/2022 03/13/19 23 Assessment & Plan (01/28/2022 8:30 AM LUNCH TRUCK OPERATOR): Obesity is unchanged. Discussed the patient's [...] and joint pain after starting Plavix following ND s/p stent. Due to increased generalized pain [...] needed. Assessment & Plan (01/25/2023 9:31 AM LUNCH TRUCK OPERATOR): Previously isloated APRIL 1:160 on AVISE [...] needed Assessment & Plan (12/29/2022 11:49 AM LUNCH TRUCK OPERATOR): Previously isloated APRIL 1:160 on AVISE [...] well maintained on humira monotherapy however until 09015 when she noted onset of dry, itchy [...] needed. Assessment & Plan (03/24/2022 10:41 AM LUNCH TRUCK OPERATOR): Previously isloated APRIL 1:160 on AVISE [...] psoriatic arthritis. Will continue humira 40mg SQ [id number]. Recent labs reviewed. Follow up in 4 months. Sooner if needed. Assessment & Plan (01/20/2022 10:29 AM LUNCH TRUCK OPERATOR): Previously isloated ARPIL 1:160 on AVISE with unremarkable hand US. [...] a spondyloarthropathy. Will continue humira 40mg SQ [id number] and give this more time to take [...] starting. Will start approval of Humira 40mg [id number]. Patient advised of the side effects of [...] Blankenship. Assessment & Plan (04/29/2021 5:04 PM LUNCH TRUCK OPERATOR): US right hand/wrist (04/21/21): Small grade [...] Blankenship. Assessment & Plan (04/14/2021 5:31 PM LUNCH TRUCK OPERATOR): 70-year-old female with PMHx of FM, [...] 08/20/2021 Assessment & Plan (01/27/2021 9:30 AM LUNCH TRUCK OPERATOR): Advised ct of head, referral to neurology Advised labs today - will notify her of results as they are available Acute cystitis without hematuria 12/17/2020 06/12/2021 Assessment & Plan (12/30/2020 8:40 PM LUNCH TRUCK OPERATOR): resolved Assessment & Plan (12/17/2020 11:07 [...] 22 Assessment & Plan (12/30/2020 8:38 PM LUNCH TRUCK OPERATOR): Obesity is unchanged. Discussed the patient's [...] 11/04/2020 Assessment & Plan (04/18/2020 10:22 AM LUNCH TRUCK OPERATOR): Resolved. We reviewed recent labs. Continue [...] planned Assessment & Plan (03/20/2020 11:26 AM LUNCH TRUCK OPERATOR): Continue with care and testing per GI. Retrieve CT from [facility]. Will evaluate further with abdominal US and labs. Hypokalemia 03/20/2020 11/04/2020 Assessment & Plan (08/29/2020 12:31 PM CDT): Seen on labs at [facility]. Repeat potassium level this week Assessment & Plan (04/18/2020 10:22 AM LUNCH TRUCK OPERATOR): Resolved. We reviewed recent labs. Continue medication same at this time. Assessment & Plan (03/20/2020 11:27 AM LUNCH TRUCK OPERATOR): Will reevaluate on labs. Discussed likely resolved as she has stopped the diazide. Cough 02/19/2020 08/20/2021 Assessment & Plan (03/20/2020 11:27 AM LUNCH TRUCK OPERATOR): resolved Assessment & Plan (02/19/2020 12:54 PM LUNCH TRUCK OPERATOR): Will send for covid test today. [...] 25 Assessment & Plan (02/17/2021 8:27 PM LUNCH TRUCK OPERATOR): Encouraged heart healthy diet and exercise Assessment & Plan (05/10/2020 8:33 AM CDT): Obesity is unchanged. Discussed the patient's BMI. The BMI is above average. BMI management plan is completed. BMI Follow-up includes: nutrition counseling, exercise counseling and education provided. Assessment & Plan (04/18/2020 7:47 AM LUNCH TRUCK OPERATOR): Obesity is unchanged. Discussed the patient's [...] constipation. Assessment & Plan (03/24/2019 4:08 PM LUNCH TRUCK OPERATOR): Improved with diet modification and as neededlaxatives Gastroesophageal reflux dise ase with esophagitis 07/26/2018 05/08/2021 Overview (07/26/2018): Added automatically from request for surgery [id number] Assessment & Plan (11/09/2019 7:29 PM CDT): Unfortunately Dexilant remains a plan exclusion. She can try and get this through [facility]. Alternatively we could offer her Carafate in conjunction with AcipHex. Assessment & Plan (10/16/2019 10:34 AM CDT): Managed by gastroenterology Assessment & Plan (03/24/2019 4:07 PM LUNCH TRUCK OPERATOR): Patient's symptoms her currently manageable with [...] Plan (10/16/2019 10:52 AM CDT): Continue with teodora same Pain of right lower extremity 08/14/2015 [...] on file Legal Sex Female 5:33 AM LUNCH TRUCK OPERATOR Gender Identity Not on file Sexual Orientation Not on file Occupation Industry Job Start Date Job End Date Retired Not on file Not on file Not on file Last Filed Vital Signs Vital Sign Reading Time Taken Comments Blood Pressure 130/70 08/29/2024 10:05 AM CDT Pulse 71 08/29/2024 10:05 AM CDT Temperature 36.9 C (98.4 F) 05/30/2024 7:52 AM CDT Respiratory Rate 20 04/25/2024 8:41 AM LUNCH TRUCK OPERATOR Oxygen Saturation 95% 08/29/2024 10:05 AM CDT Inhaled Oxygen Concentration - - Weight 63.5 kg (140 lb) 08/29/2024 10:05 AM CDT Height 149.9 cm (4' 11) 08/29/2024 10:05 AM CDT Body Mass Index 28.28 08/29/2024 10:05 AM CDT Plan of Treatment Not on file Medical Devices Implanted Type Area Brazing Machine Operator Helper Device Identifier Shelf Expiration Date Model / Serial / Lot R-Hip 2014 Right: Hip Procedures Procedure Name Priority Date/Time Associated Diagnosis Comments ERYTHROCYTE SEDIMENTATION RATE Routine 08/29/2024 10:21 AM CDT Polyarthralgia [facility] current use of therapeutic drug CRP (ACUTE PHASE) Routine 08/29/2024 10: 21 AM CDT Polyarthralgia [facility] current use of therapeutic drug COMPREHENSIVE METABOLIC PANEL Routine 08/29/2024 10:21 AM CDT Polyarthralgia [facility] current use of therapeutic drug CBC WITH AUTO DIFFERENTIAL Routine 08/29/2024 10:21 AM CDT Polyarthralgia [facility] current use of therapeutic drug IR INJECTION SI JOINT LEFT WITH GUIDANCE Schedule Routine, Read Routine (OP Routine) 08/18/2024 10:40 AM CDT Chronic sacroiliac joint pain SURGICAL PATHOLOGY Routine 08/11/2024 12 :00 AM CDT Neoplasm of skin LOWER EXTREMITY VENOUS DOPPLER Schedule Routine, Read Routine (OP Routine) 07/29/2024 10:46 AM CDT SCAN - RADIOLOGY/IMAGING 07/29/2024 TPMT ACTIVITY Routine 07/28/2024 11:31 AM CDT Polyarthralgia oil heaterman current use of therapeutic drug CRP (ACUTE PHASE) Routine 07/28/2024 11: 31 AM CDT Polyarthralgia ERYTHROCYTE SEDIMENTATION RATE Routine 07/28/2024 11:31 AM CDT Polyarthralgia CBC WITH AUTO DIFFERENTIAL Routine 07/28/2024 11:31 AM CDT Polyarthralgia oil heaterman current use of therapeutic drug COMPREHENSIVE METABOLIC PANEL Routine 07/28/2024 11:31 AM CDT Polyarthralgia [facility] current use of therapeutic drug SCAN - LABS 07/28/2024 DEXA AXIAL SKELETON BONE DENSITY 1 OR MORE SITES Schedule Routine, Read Routine (OP Routine) 07/25/2024 3:53 PM CDT Post-menopausal SCAN - RADIOLOGY/IMAGING 06/24/2024 DIAGNOSTIC MAMMOGRAM Schedule Routine, Read Routine (OP Routine) 11/05/2023 3:39 PM CDT HEPATITIS PANEL, ACUTE Routine 12/22/2021 11:17 AM CDT Fatigue, unspecified type COLONOSCOPY 03/25/2020 1:48 PM LUNCH TRUCK OPERATOR from Last 3 Months or Most Recently Relevant to Health Maintenance Results * (ABNORMAL) CBC with auto differential (08/29/2024 10:21 AM CDT) WBC 8.6 3.8 - 10.8 Thousand/u L [facility] RBC, POC 4.38 3.80 - 5.10 Million/uL [facility] Hgb 13.5 11.7 - 15.5 g/dL [facility] Hct 42.6 35.0 - 45.0 % [facility] MCV 97.3 80.0 - 100.0 fL [facility] MCH 30.8 27.0 - 33.0 pg [facility] MCHC 31.7(L) 32.0 - 36.0 g/dL [facility] Comment: For adults, a slight decrease in the calculated MCHC value (in the range of 30 to 32 g/dL) is most likely not clinically significant; however, it should be interpreted with caution in correlation with other red cell parameters and the patient's clinical condition. Rdw 12.8 11.0 - 15.0 % [facility] Platelets 481(H) 140 - 400 Thousand/u L [facility] MPV 9.5 7.5 - 12.5 fL [facility] Neutrophils, abs 6,355 1,500 - 7,800 cells/uL [facility] Lymphocytes, abs 1,410 850 - 3,900 cells/uL [facility] Monocyte abs 791 200 - 950 cells/uL [facility] Eosinophils, abs 17 15 - 500 cells/uL [facility] Basophils, abs 26 0 - 200 cells/uL [facility] Neutrophils 73.9 % [facility] Lymphocyte pct 16.4 % [facility] Monocytes 9.2 % [facility] Eosinophils 0.2 % [facility] Basophils 0.3 % [facility] Blood 08/29/2024 10:2 1 AM CDT 08/29/2024 10:21 AM CDT Tashia GRAHAM LAB BLOOD ORDERABLES Final Result Performing Organization Address City/[facility] Co de Phone Number QUEST [facility] [address] [place] [address] * (ABNORMAL) Erythrocyte sedimentation rate (08/29/2024 10:21 AM CDT) Pathologist [facility] Erythrocyte sedimentation rate 38(H) < OR = 30 mm/h [facility] Blood 08/29/2024 10:2 1 AM CDT 08/29/2024 10:21 AM CDT Tashia GRAHAM LAB BLOOD ORDERABLES Final Result Performing Organization Address [facility] Co de Phone Number QUEST [facility] [address] [place] [address] * CRP (acute phase) (08/29/2024 10:21 AM CDT) Pathologist [facility] C-RP <3.0 <8.0 mg/L [facility] Blood 08/29/2024 10:2 1 AM CDT 08/29/2024 10:21 AM CDT Tashia GRAHAM LAB BLOOD ORDERABLES Final Result Performing Organization Address [facility] de Phone Number QUEST [facility] [address] [place] [address] * (ABNORMAL) Comprehensive metabolic panel (08/29/2024 10:21 AM CDT) Pathologist [facility] Glucose 80 65 - 99 mg/dL [facility] Comment: Fasting reference interval BUN 15 7 - 25 mg/dL [facility] Creatinine 0.88 0.60 - 1.00 mg/dL [facility] eGFR 70 > OR = 60 mL/min/1.7 3m2 [facility] BUN/creat ratio SEE NOTE: 6 - 22 (calc) [facility] Comment: Not Reported: BUN and Creatinine are within reference range. Sodium 135 135 - 146 mmol/L [facility] Potassium, pl 3.8 3.5 - 5.3 mmol/L [facility] Chloride 94(L) 98 - 110 mmol/L [facility] CO2 29 20 - 32 mmol/L [facility] Calcium 9.7 8.6 - 10.4 mg/dL [facility] Protein, sr 7.4 6.1 - 8.1 g/dL [facility] Albumin 4.3 3.6 - 5.1 g/dL [facility] GLOBULIN 3.1 1.9 - 3.7 g/dL (calc) [facility] Alb/glob ratio 1.4 1.0 - 2.5 (calc) [facility] Bilirubin, total 0.4 0.2 - 1.2 mg/dL [facility] Alk phos 104 37 - 153 U/L [facility] AST 25 10 - 35 U/L [facility] ALT (SGPT) 16 6 - 29 U/L [facility] Blood 08/29/2024 10:2 1 AM CDT 08/29/2024 10:21 AM CDT us Tashia GRAHAM LAB BLOOD ORDERABLES Final Result [facility] [address] [place] [address] * IR Injection SI Joint Left with Guidance (08/18/2024 10:40 AM CDT) Narrative [facility] - 08/18/2024 10:40 AM CDT The images from this study are not interpreted by Radiology. Please refer to the physician's procedure / OR operative note. us Nilesh Dos Santos MD IMG IR PROCEDURES Final Re sult [facility] * Surgical pathology (08/11/2024 12:00 AM CDT) Tissue (Skin, shave biopsy) 08/11/2024 08/11/2024 12:56 PM CDT Narrative [facility] - 08/15/2024 3:06 PM CDT EPIC results best viewed via link to PDF [facility] [address] [place] [address], [address], [place] [address] [email or web address] Note to Patients: This report may contain a detailed description of human tissue sent by a health care provider to the laboratory for pathologic evaluation. The content of this report is essential for diagnosis and may provide important critical findings. This information may be unfamiliar to patients to review without a medical professional present. It is advised that the patient review this report in the presence of a health care provider who can answer questions and explain the details. FINAL REPORT Patient Information: PATIENT NAME: MAGGI DE LEON SEX: F : 1950 (Age: 73) Specimen Information: COLLECTED: 08/11/2024 RECEIVED: 08/11/2024 REPORTED: 08/15/2024 Submitting Physician Information: Jelly Rodríguez M.D. [address] [facility] ([facility], [address] [place] [address], DERMATOPATHOLOGY REPORT RESULTS DIAGNOSIS: SKIN, LEFT FOREARM, SHAVE BIOPSY: DERMAL MELANOCYTIC NEVUS sxt/lac By this signature, I attest that the above diagnosis is based upon my personal examination of the slides(and/or other material indicated in the diagnosis). Yasmin Uriostegui M.D. Report Electronically Reviewed and Signed Out By Yasmin Uriostegui M.D. 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 (D22.9) GROSS DESCRIPTION: Received in a formalin-containing bottle is a superficial fragment of brown,hair-bearing and slightly crusted skin measuring 0.8 by 0.7 by 0.1 cm. The surgical margin is inked blue. The specimen is sectioned into 3 pieces and submitted entirely in a single cassette. Due to shrinkage, measurements may be different than those at time of procedure. cr/tyc ICD-9 A; ZSD.808 Clerical Data A; 68114 The characteristics of special, immunohistochemical, and immunofluorescence stains and in-situ hybridization tests performed by the [facility] were deemed acceptable in ongoing quality control lab technician measures and in compliance with regulations drawn from the Clinical Laboratory Improvement Act zm6411 (CLIA '88). Control reactions for all stains performed were deemed adequate and appropriate by a pathologist prior to evaluation of patient tissue. Some diagnoses were rendered with the assistance of laboratory-developed tests utilizing analyte-specific reagents; the performance characteristic of these tests were determined by [facility] and are not cleared or approved by the [place] Food an Drug administration. Laboratory developed test may only be performed in a facility that is certified by the [facility] as a high-complexity laboratory under CLIA '88. These tests are used for clinical purposes and are not investigational. us Jelly Rodríguez MD LAB PATHOLOGY ORDERABLES Final Result [facility] [address] [place] [address] * LOWER EXTREMITY VENOUS DOPPLER (07/29/2024 10:46 AM CDT) Anatomical Region Laterality Modality N/A Ultrasound us Historical Provider IMG US PROCEDURES Final R esult * SCAN - RADIOLOGY/IMAGING (07/29/2024) Anatomical Region Laterality Modality Other us Sergei adams Result * TPMT activity profile, RBC (07/28/2024 11:31 AM CDT) [facility] TPMT activity 13 nmol/hr/mL RBC [facility] Comment: Reference Range for TPMT Activity: >12 Normal 4-12 Heterozygote or low metabolizer <4 Homozygote Deficient Range This test was developed and its analytical performance characteristics have been determined by [employer]. It has not been cleared or approved by the FDA. This assay has been validated pursuant to the CLIA regulations and is used for clinical purposes. Blood 07/28/2024 11:3 1 AM CDT 07/28/2024 11:31 AM CDT Tashia GRAHAM LAB BLOOD ORDERABLES Final Result [facility] [address] [place] [address] * (ABNORMAL) CBC with auto differential (07/28/2024 11:31 AM CDT) [facility] WBC 6.3 3.8 - 10.8 Thousand/u L [facility] RBC, POC 4.44 3.80 - 5.10 Million/uL [facility] Hgb 13.7 11.7 - 15.5 g/dL [facility] Hct 42.1 35.0 - 45.0 % [facility] MCV 94.8 80.0 - 100.0 fL [facility] MCH 30.9 27.0 - 33.0 pg [facility] MCHC 32.5 32.0 - 36.0 g/dL [facility] Comment: For adults, a slight decrease in the calculated MCHC value (in the range of 30 to 32 g/dL) is most likely not clinically significant; however, it should be interpreted with caution in correlation with other red cell parameters and the patient's clinical condition. Rdw 12.3 11.0 - 15.0 % [facility] Platelets 462(H) 140 - 400 Thousand/u L [facility] MPV 9.5 7.5 - 12.5 fL [facility] Neutrophils, abs 4,070 1,500 - 7,800 cells/uL [facility] Lymphocytes, abs 1,537 850 - 3,900 cells/uL [facility] Monocyte abs 573 200 - 950 cells/uL [facility] Eosinophils, abs 82 15 - 500 cells/uL [facility] Basophils, abs 38 0 - 200 cells/uL [facility] Neutrophils 64.6 % [facility] Lymphocyte pct 24.4 % [facility] Monocytes 9.1 % [facility] Eosinophils 1.3 % [facility] Basophils 0.6 % [facility] Blood 07/28/2024 11:3 1 AM CDT 07/28/2024 11:31 AM CDT Tashia GRAHAM LAB BLOOD ORDERABLES Final Result Performing Organization Address [facility]/ZIP Co de Phone Number QUEST [facility] [address] [place] [address] * (ABNORMAL) Erythrocyte sedimentation rate (07/28/2024 11:31 AM CDT) Pathologist [facility] Erythrocyte sedimentation rate 41(H) < OR = 30 mm/h [facility] Blood 07/28/2024 11:3 1 AM CDT 07/28/2024 11:31 AM CDT Tashia GRAHAM LAB BLOOD ORDERABLES Final Result Performing Organization Address City/[facility]/ZIP Co de Phone Number QUEST [facility] [address] [place] [address] * CRP (acute phase) (07/28/2024 11:31 AM CDT) C-RP 6.4 <8.0 mg/L [facility] Blood 07/28/2024 11:3 1 AM CDT 07/28/2024 11:31 AM CDT Tashia GRAHAM LAB BLOOD ORDERABLES Final Result [facility] [address] [place] [address] * (ABNORMAL) Comprehensive metabolic panel (07/28/2024 11:31 AM CDT) Glucose 126(H) 65 - 99 mg/dL [facility] Comment: Fasting reference interval For someone without known diabetes, a glucose value >125 mg/dL indicates that they may have diabetes and this should be confirmed with a follow-up test. BUN 9 7 - 25 mg/dL [facility] Creatinine 0.77 0.60 - 1.00 mg/dL [facility] eGFR 82 > OR = 60 mL/min/1.7 3m2 [facility] BUN/creat ratio SEE NOTE: 6 - 22 (calc) [facility] Comment: Not Reported: BUN and Creatinine are within reference range. Sodium 136 135 - 146 mmol/L [facility] Potassium, pl 3.7 3.5 - 5.3 mmol/L [facility] Chloride 93(L) 98 - 110 mmol/L [facility] CO2 29 20 - 32 mmol/L [facility] Calcium 9.9 8.6 - 10.4 mg/dL [facility] Protein, sr 6.9 6.1 - 8.1 g/dL [facility] Albumin 4.3 3.6 - 5.1 g/dL [facility] GLOBULIN 2.6 1.9 - 3.7 g/dL (calc) [facility] Alb/glob ratio 1.7 1.0 - 2.5 (calc) [facility] Bilirubin, total 0.4 0.2 - 1.2 mg/dL [facility] Alk phos 91 37 - 153 U/L [facility] AST 35 10 - 35 U/L [facility] ALT (SGPT) 26 6 - 29 U/L [facility] Blood 07/28/2024 11:3 1 AM CDT 07/28/2024 11:31 AM CDT Tashia GRAHAM LAB BLOOD ORDERABLES Final Result [facility] [address] [place] [address] * SCAN - LABS (07/28/2024) Anjelica Huntley SUBASSEMBLY ASSEMBLER Final Result * (ABNORMAL) Dexa Axial Skeleton Bone Density 1 or 2 Site (07/25/2024 3:53 PM CDT) SCRIBED DXA T-SCORE 2.5 Anatomical Region Laterality Modality Body N/A Radiographic Tram ging Anjelica Huntley SUBASSEMBLY ASSEMBLER IMG DXA PROCEDURES Final Resu lt * SCAN - RADIOLOGY/IMAGING (06/24/2024) Anatomical Region Laterality Modality Other Sergei adams Result * Diagnostic Mammogram (11/05/2023 3:39 PM CDT) Anatomical Region Laterality Modality Breast Mammography Kota Long MD IMG MAMMO PROCEDURES Ca adams Result * Hepatitis panel, acute (12/22/2021 11:17 AM CDT) Hep A IgM NON-REACTI VE NON-REACT JUSTICE [facility] Comment: For additional information, please refer to http://education.SoundBetter/faq/MBJ224 (This link is being provided for informational/ [...] a test for HCV RNA (test code 50665) is suggested. For additional information please refer to http://education.SoundBetter/faq/IGV38k0 (This link is being provided for informational/ educational purposes only.) Blood 12/22/2021 11:1 7 AM CDT 12/22/2021 11:18 AM CDT Tashia GRAHAM LAB MICROBIOLOGY - NERAL ORDERABLES Final Result [facility] [address] [facility] [place] [address] * COLONOSCOPY (03/25/2020 1:48 PM LUNCH TRUCK OPERATOR) Anatomical Region Laterality Modality Other Narrative Procedure Note Joseph Guillaume MD PhD - 03/25/2020 1:48 PM CST ENDOSCOPY LAB Patient Name: Maggi De Leon Procedure Date: 03/25/2020 1:48 PM Date of : 1950 Admit Type: Outpatient Age: 69 Gender: Female Attending MD: Joseph Guillaume MD,PHD Room: [facility] ENDOSCOPY ROOM 03 Note Status: [...] The scope was passed under direct vision.The [id number] was introduced through the anuswith the intention of advancing to the ileum. The scopewas advanced to the sigmoid colon before the procedurewas aborted. Medications were given. The scope waspassed under direct vision. The [id number] was introduced through the anus and advanced [...] business hours - Please call theNurse Coordinator: [phone]. After hours, evening, nights, weekends and holidays- Please call the hospital powerhouse operator at and ask for the GI fellow collision estimator. Attending Participation: I personally performed the entire procedure. Electronically signed by Joseph Guillaume MD. Joseph Guillaume MD, PHD 03/25/2020 2:32:06 PM Number of Addenda: 0 Note Initiated On: 03/25/2020 1:48 PM Joseph Guillaume MD PhD ENDOSCOPY PROCEDURES Ca l Result from Last 3 Months or Most Recently Relevant to Health Maintenance Insurance MEDICARE FOR LIFE MEDICARE [facility] Address: [address] [address] [place] [address] FOR [place] [address] FOR LIFE MEDICARE Advance Directives For more information, please contact: [phone] * Full Code (Latest Code Status on File) Date Activated Date Inactivated Comments 03/25/2020 11:54 AM 03/25/2020 7:31 PM * Full Code Date Activated Date Inactivated Comments 08/04/2018 10:36 AM 08/04/2018 5:07 PM Care Teams [employer] Science Teacher Relationship Specialty Start Date End Date Anjelica Huntley NP [address] [place] [address] PCP - General Internal Medicine 06/10/22 Buzz Blankenship MD [address] [place] [address] Consulting Physician Rheumatology 04/14/21
--- OUTSIDE RECORDS SUMMARY | 2024-09-15 14:05 | XMS_ITS | Encounter Summary ---
Author Organization [facility] Address [address] [place] [address] Phone Care Team Providers Care Returned Goods Receiving Clerk Name Role Phone Buzz Blankenship MD Unavailable [phone] Anjelica Huntley NP Primary Care Provider Encounter Details Date Type Department Care Team (Late st Contact Info) Description 09/13/2024 Telephone [facility] Orthopaedic Surgery [address] [place] [address] Mario Aj MD [address] [place] [address] Social History Tobacco Use Types Packs/Day Years [...] on file Legal Sex 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 Also we would typically want to wait until 6 months after the injection before repeating with the gel. * Telephone Encounter - Marva Dimas RMA - 09/13/2024 1:51 PM CDT Patient called and left requesting an appointment for repeat synvisc injection. documented in this encounter Plan of Treatment Not on file documented as of this encounter Visit Diagnoses Not on filedocumented in this encounter Care Teams Returned Goods Receiving Clerk Relationship Specialty Start Date End Date Anjelica Huntley NP [address] [place] [address] PCP - General Internal Medicine 06/10/22 Buzz Blankenship MD [address] [place] [address] Consulting Physician Rheumatology 04/14/21 documented as of this encounter
--- OUTSIDE RECORDS SUMMARY | 2024-09-15 14:05 | XMS_ITS | Clinical Summary ---
Author Organization [facility] Address [address] [place] [address] Care Team Providers Care Petroleum Sampler Name Role Phone Buzz Blankenship MD Unavailable [phone] Anjelica Huntley NP Primary Care Provider [phone] Allergies Active Allergy Reactions Criticality Noted Date Comments Bempedoic Acid Other (See comments) Low 11/29/2023 Muscle ache Hydrochlorothiazide Other (See comments) Low 04/20/2012 Hydrocodone Nausea & Vomiting,Dizziness ,Headache,Vomiting Low 05/26/2011 Pregabalin Other (See comments),Agitatio n Low 10/13/2021 Blurred vision Pain Medicine Vomiting Low 07/24/2019 Penicillins Swelling Medium 03/13/2015 Kscwkbe-Moh-Fkx Reductase Inhibitors Muscle pain Medium 03/21/2021 Medications [...] 1 TABLET DAILY 90 tablet 3 09/16/19 Active triamterene-hyd roCHLOROthiazid e 37.5-25 mg per [...] Dysuria 03/16/2023 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 Will defer restarting [...] 03/24/2022 Assessment & Plan (03/24/2022 10:44 AM SENIOR JAVA UI DEVELOPER): Likely worsened by MTX which was stopped 01/2022. Recommend folic acid up to 3mg daily and biotin. Encouraged to discuss with her senior physician as well. Primary insomnia 03/13/2022 Assessment & Plan (09/29/2023 9:19 AM CDT): This is a significant, separately identifiable problem that was evaluated and managed on the same day as the wellness exam Dyspnea on exertion 02/04/2022 Overview (02/04/2022): Patient O2 sat is 98%. She does complain of slight chest pressure and shortness of breath. Patient referred to the emergency department for further evaluation custodial current use of therapeutic drug 2021 Overview [...] 11/2021 Assessment & Plan (01/25/2023 9:31 AM SENIOR JAVA UI DEVELOPER): Hepatitis panel negative; 11/2021 TSPOT negative: 11/2021 Assessment & Plan (12/29/2022 11:51 AM SENIOR JAVA UI DEVELOPER): Hepatitis panel negative; 11/2021 TSPOT negative: 11/2021 [...] 11/2021 Assessment & Plan (03/24/2022 10:42 AM SENIOR JAVA UI DEVELOPER): Hepatitis panel negative; 11/2021 TSPOT negative: 11/2021 Assessment & Plan (01/20/2022 10:27 AM SENIOR JAVA UI DEVELOPER): Hepatitis panel negative; 11/2021 TSPOT negative: 11/2021 [...] and Naprosyn. Medrol Dosepaks are not a fdc solution. As long as her kidney function [...] therapy at the [facility] Assessment & Plan (06/04/2021 12:51 PM CDT): [...] limited. Assessment & Plan (01/25/2023 9:32 AM SENIOR JAVA UI DEVELOPER): Previously diagnosed by PCP. C/o diffuse generalized pain. S/e to gabapentin and lyrica so will defer restarting. Recently restarted venlafaxine per PCP for anxiety. Remains on fluoxetine but was increased to 60mg daily per psych. Additional medication options are limited. Assessment & Plan (12/29/2022 11:50 AM SENIOR JAVA UI DEVELOPER): Previously diagnosed by PCP. C/o diffuse generalized [...] PCP. Assessment & Plan (03/24/2022 10:42 AM SENIOR JAVA UI DEVELOPER): Previously diagnosed by PCP. C/o diffuse generalized pain. S/e to gabapentin and lyrica so will defer restarting. Currently on venlafaxine and fluoxetine per PCP. Assessment & Plan (01/20/2022 10:27 AM SENIOR JAVA UI DEVELOPER): Previously diagnosed by PCP. C/o diffuse generalized [...] dizziness. Assessment & Plan (02/17/2021 8:28 PM SENIOR JAVA UI DEVELOPER): Add gabapentin at hs. Discussed increasing to 100mg bid over the coming week pending symptom improvement. Tremor 01/27/2021 Assessment & Plan (01/27/2021 9:30 AM SENIOR JAVA UI DEVELOPER): Advised ct of head, eeg, referral to neurology Advised labs today - will notify her of results as they are available Syncope 01/27/2021 Assessment & Plan (02/17/2021 8:26 PM SENIOR JAVA UI DEVELOPER): Has appt pending for cv that she will keep She will continue to not drive Assessment & Plan (01/27/2021 9:30 AM SENIOR JAVA UI DEVELOPER): Advised no driving, climbing, or swimming Advised ct of head, eeg, referral to neurology Advised labs today - will notify her of results as they are available Plantar fasciitis, bilateral 11/04/2020 Assessment & Plan (11/04/2020 2:16 PM CDT): Will continue with care per bottom buffer Thrombophlebitis of superfic ial veins of right [...] 10/08/2020 Assessment & Plan (12/30/2020 8:38 PM SENIOR JAVA UI DEVELOPER): Decrease maxzide due to hyponatremia Repeat bmp in the next week Assessment & Plan (10/08/2020 6:08 PM CDT): Continue with care per ent We discussed as she has a current rx for valium that we cannot provide her with another at the current time. We discussed that if her ent discontinues writing it for her that pending review of [place] digital commentator we can further discuss a prescription. Paradoxical vocal fold motion disorder Assessment & Plan (09/12/2020 11:02 AM CDT): I have recommended laryngeal control therapy here at the [facility] in order [...] time Assessment & Plan (02/17/2021 8:25 PM SENIOR JAVA UI DEVELOPER): Stable, continue meds same at this time Assessment & Plan (12/30/2020 8:40 PM SENIOR JAVA UI DEVELOPER): Decrease prozac to 30mg daily Assessment & [...] needed. Assessment & Plan (12/30/2020 8:39 PM SENIOR JAVA UI DEVELOPER): Continue with care per GI Due to [...] hematology. Assessment & Plan (12/30/2020 8:40 PM SENIOR JAVA UI DEVELOPER): Has appt pending with heme/onc that she [...] this time. Will continue to follow-up with bottom buffer as planned. Anxiety 04/18/2020 Assessment & Plan (07/10/2022 6:53 PM CDT): As the patient's pain causes depression and depression worsens pain, she may benefit from speaking to a pain psychologist like 1 at the pain center at [facility]. Assessment & Plan (10/13/2021 12:47 PM CDT): Discontinue with xanax. Will restart valium bid/prn anxiety or dizziness. Assessment & Plan (06/04/2021 12:49 PM CDT): Will add a prn xanax as she has discontinued valium. Assessment & Plan (02/17/2021 8:28 PM SENIOR JAVA UI DEVELOPER): Resume prn valium, advised not taking more than 10mg daily. Advised potential for addictiveness with valium and additionally for sedation as a side effect. She was advised caution on driving after taking due to sedation potential. Assessment & Plan (04/18/2020 10:23 AM SENIOR JAVA UI DEVELOPER): Continue medication same at this time Rib pain on left side 04/18/2020 Assessment & Plan (04/18/2020 10:23 AM SENIOR JAVA UI DEVELOPER): We reviewed ct chest, abdominal us. She will continue to exercise 4x/week for 30min each session. Gastric polyp 04/18/2020 Assessment & Plan (04/18/2020 10:23 AM SENIOR JAVA UI DEVELOPER): Continue with care per gi Lipoma of torso 04/18/2020 Assessment & Plan (04/18/2020 10:23 AM SENIOR JAVA UI DEVELOPER): Will refer to gen surg to discuss further evaluation and treatment Abdominal pain 03/14/2020 Overview (03/14/2020): Added automatically from request for surgery [id number] Assessment & Plan (07/10/2022 6:50 PM CDT): [...] order and advised to take this to [facility] today. Change in bowel habits 03/14/2020 Overview (03/14/2020): Added automatically from request for surgery [id number] Assessment & Plan (04/02/2023 7:35 PM SENIOR JAVA UI DEVELOPER): The patient was recently treated with a number of antibiotics and Cosentyx. Even though Cosentyx was discontinued in January, there is an association with triggering a inflammatory bowel disease type condition. We would like to check stool studies including calprotectin to evaluate an infection or inflammatory cause of her symptoms. Hoarseness of voice 02/19/2020 Assessment & Plan (03/20/2020 11:27 AM SENIOR JAVA UI DEVELOPER): resolved Assessment & Plan (02/19/2020 12:54 PM SENIOR JAVA UI DEVELOPER): Will send for covid test today. Will notify her of results as available. Advised her in the interim to report to er if worsening. Will start on proventil hfa and change aciphex to dexilant. Positive depression screening 11/14/2019 Assessment & Plan (03/20/2020 11:26 AM SENIOR JAVA UI DEVELOPER): Continue with prozac. Will add buspar bid, discussed increasing pending response. 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 Will continue with care per gi. Assessment & Plan (03/20/2020 11:27 AM SENIOR JAVA UI DEVELOPER): Continue with care and testing per GI. Assessment & Plan (02/19/2020 12:54 PM SENIOR JAVA UI DEVELOPER): Will send for covid test today. Will [...] from ER with benefit. Seeing ortho spine 4/4/23. Consider spinal cord stimulator. Assessment & Plan (03/24/2022 10:43 AM SENIOR JAVA UI DEVELOPER): XR L-spine and MRI L-spine revealed multilevel [...] Plan (10/16/2019 10:34 AM CDT): Managed by enterprise engineer via [facility] Osteoarthritis of hip 03/13/2015 [...] provided Assessment & Plan (03/13/2022 8:16 AM SENIOR JAVA UI DEVELOPER): Obesity is unchanged. Discussed the patient's BMI. [...] provided Assessment & Plan (03/13/2022 8:16 AM SENIOR JAVA UI DEVELOPER): Obesity is unchanged. Discussed the patient's BMI. The BMI is above average. BMI management plan is completed. BMI Follow-up includes: nutrition counseling, exercise counseling and education provided. Rheumatoid arthritis involvi ng multiple sites with positive rheumatoid factor 03/13/2022 05/21/19 Obesity (BMI 30-39.9) 01/28/20222022 Assessment & Plan (01/28/2022 8:30 AM SENIOR JAVA UI DEVELOPER): Obesity is unchanged. Discussed the patient's BMI. The BMI is above average. BMI management plan is completed. BMI Follow-up includes: nutrition counseling, exercise counseling and education provided. BMI 30.0-30.9,adult 01/28/2022 03/13/19 23 Assessment & Plan (01/28/2022 8:30 AM SENIOR JAVA UI DEVELOPER): Obesity is unchanged. Discussed the patient's BMI. [...] and joint pain after starting Plavix following [place] s/p stent. Due to increased generalized pain [...] needed. Assessment & Plan (01/25/2023 9:31 AM SENIOR JAVA UI DEVELOPER): Previously isloated APRIL 1:160 on AVISE with [...] needed Assessment & Plan (12/29/2022 11:49 AM SENIOR JAVA UI DEVELOPER): Previously isloated APRIL 1:160 on AVISE with [...] well maintained on humira monotherapy however until [id number] when she noted onset of dry, itchy [...] needed. Assessment & Plan (03/24/2022 10:41 AM SENIOR JAVA UI DEVELOPER): Previously isloated APRIL 1:160 on AVISE with [...] psoriatic arthritis. Will continue humira 40mg SQ [id number]. Recent labs reviewed. Follow up in 4 months. Sooner if needed. Assessment & Plan (01/20/2022 10:29 AM SENIOR JAVA UI DEVELOPER): Previously isloated APRIL 1:160 on AVISE with [...] a spondyloarthropathy. Will continue humira 40mg SQ [id number] and give this more time to take [...] starting. Will start approval of Humira 40mg [id number]. Patient advised of the side effects of [...] Blankenship. Assessment & Plan (04/29/2021 5:04 PM SENIOR JAVA UI DEVELOPER): US right hand/wrist (04/21/21): Small grade 1 [...] Blankenship. Assessment & Plan (04/14/2021 5:31 PM SENIOR JAVA UI DEVELOPER): 70-year-old female with PMHx of FM, gout, [...] 08/20/2021 Assessment & Plan (01/27/2021 9:30 AM SENIOR JAVA UI DEVELOPER): Advised ct of head, referral to neurology Advised labs today - will notify her of results as they are available Acute cystitis without hematuria 12/17/2020 06/12/2021 Assessment & Plan (12/30/2020 8:40 PM SENIOR JAVA UI DEVELOPER): resolved Assessment & Plan (12/17/2020 11:07 AM [...] and education provided. BMI 30.0-30.9,adult 08/01/2020 08/21/19 Assessment & Plan (12/30/2020 8:38 PM SENIOR JAVA UI DEVELOPER): Obesity is unchanged. Discussed the patient's BMI. [...] 11/04/2020 Assessment & Plan (04/18/2020 10:22 AM SENIOR JAVA UI DEVELOPER): Resolved. We reviewed recent labs. Continue medication [...] planned Assessment & Plan (03/20/2020 11:26 AM SENIOR JAVA UI DEVELOPER): Continue with care and testing per GI. Retrieve CT from [facility]. Will evaluate further with abdominal US and labs. Hypokalemia 03/20/2020 11/04/2020 Assessment & Plan (08/29/2020 12:31 PM CDT): Seen on labs at [facility]. Repeat potassium level this week Assessment & Plan (04/18/2020 10:22 AM SENIOR JAVA UI DEVELOPER): Resolved. We reviewed recent labs. Continue medication same at this time. Assessment & Plan (03/20/2020 11:27 AM SENIOR JAVA UI DEVELOPER): Will reevaluate on labs. Discussed likely resolved as she has stopped the diazide. Cough 02/19/2020 08/20/2021 Assessment & Plan (03/20/2020 11:27 AM SENIOR JAVA UI DEVELOPER): resolved Assessment & Plan (02/19/2020 12:54 PM SENIOR JAVA UI DEVELOPER): Will send for covid test today. Will [...] 05/31/19 Assessment & Plan (02/17/2021 8:27 PM SENIOR JAVA UI DEVELOPER): Encouraged heart healthy diet and exercise Assessment & Plan (05/10/2020 8:33 AM CDT): Obesity is unchanged. Discussed the patient's BMI. The BMI is above average. BMI management plan is completed. BMI Follow-up includes: nutrition counseling, exercise counseling and education provided. Assessment & Plan (04/18/2020 7:47 AM SENIOR JAVA UI DEVELOPER): Obesity is unchanged. Discussed the patient's BMI. [...] constipation. Assessment & Plan (03/24/2019 4:08 PM SENIOR JAVA UI DEVELOPER): Improved with diet modification and as neededlaxatives Gastroesophageal reflux dise ase with esophagitis 07/26/2018 05/08/2021 Overview (07/26/2018): Added automatically from request for surgery [id number] Assessment & Plan (11/09/2019 7:29 PM CDT): Unfortunately Dexilant remains a plan exclusion. She can try and get this through [facility]. Alternatively we could offer her Carafate in conjunction with AcipHex. Assessment & Plan (10/16/2019 10:34 AM CDT): Managed by gastroenterology Assessment & Plan (03/24/2019 4:07 PM SENIOR JAVA UI DEVELOPER): Patient's symptoms her currently manageable with every [...] Type Department Care Team Description 09/13/2024 Telephone [facility] [address] [facility] [facility] [address] [place] [address] Mario Aj MD 09/08/2024 Telephone [facility] [address] [place] [phone] Ml Queen 08/30/2024 Results Follow-Up [facility] [address] [place] [phone] Tashia Kirk PA CBC with auto differential, Comprehensive metabolic panel, CRP (acute phase), Erythrocyte sedimentation rate 08/29/2024 10:00 AM CDT Office Visit [facility] [address] [place] [phone] Tashia Kirk PA Polyarthralgia (Primary Dx); Fibromyalgia; superintendent terminal current use of therapeutic drug 08/21/2024 Telephone [facility] [address] [facility] [address] [place] [phone] Francine Isaac LPN 08/18/2024 9:15 AM CDT - 08/18/2024 11:59 PM CDT Hospital Encounter [facility] [address] [facility] [address] [place]ung [phone] Nilesh Dos Santos MD Chronic sacroiliac joint pain Discharge Disposition: Discharge to home or self care 08/15/2024 Telephone Radiology - [address] [facility] [address] [place] [address] Radha Fox, 08/15/2024 Results Follow-Up [facility] [address] [place] [address] Jelly Rodríguez MD Surgical pathology 08/11/2024 10:45 AM CDT Office Visit [facility] [address] [place] [address] Jelly Rodríguez MD Seborrheic keratosis (Primary Dx); Neoplasm of skin; Carey angioma; Lentigines; Multiple benign nevi 08/11/2024 Orders Only [facility] [address] [place] [address] Jelly Rodríguez MD Neoplasm of skin 08/10/2024 Orders Only [facility] [address] [place] [phone] Tashia Krik PA 08/10/2024 Telephone [facility] [address] [place] [phone] Ml Queen Flare 08/04/2024 Results Follow-Up [facility] [address] [place] [phone] Tashia Kirk PA Comprehensive metabolic panel, CBC with auto differential, Erythrocyte sedimentation rate, Additional followed-up results: 2 08/03/2024 Results Follow-Up [facility] [address] [facility] [address] [place] [address] Sergei Richards MD SCAN - RADIOLOGY/IMAGING 08/02/2024 Orders Only [facility] [address] [place] [address] Kota Long MD 08/01/2024 Orders Only [facility] [place] [address] [facility] [address] [place] [phone] Kota Long MD 07/29/2024 Orders Only [facility] Health Information Management [address] [place] [address] Sergei Richards MD 07/28/2024 11:15 AM CDT Office Visit [facility] [address] [place] [phone] Tashia Kirk PA Polyarthralgia (Primary Dx); Fibromyalgia; Pain of right hand; custodial current use of therapeutic drug 07/28/2024 Orders Only [facility] [address] [facility] [address] [place] [address] Nilesh Dos Santos MD Primary osteoarthritis of left hip (Primary Dx); Left hip pain 07/28/2024 Telephone [facility] [address] [place] [address] [address] [place] [phone] Sergei Richards MD 07/28/2024 Telephone [facility] [address] [facility] 2[address] [place] [phone] Tri Cheng CMA Offer Sooner Appointment 07/11/2024 Orders Only [facility] [address] [facility] [address] [place] [address] Nilesh Dos Santos MD Chronic sacroiliac joint pain (Primary Dx) 06/29/2024 Telephone [facility] [address] [place] [address] [address] [place] [address] Sergei Richards MD 06/24/2024 Orders Only [facility] Health Information Management [address] [place] [address] Sergei Richards MD from Last 3 Months Immunizations Immunization [...] FLUORO GUIDED INJECTION HIP LEFT 05/19/2024 Left IR INJECTION SI JOINT LEFT W ITH GUIDANCE 08/18/2024 Left Medical History Medical History Date Comments [...] ed with meds Palpitations Fibromyalgia possibly-to see Environmental Programs Specialist PFO (patent foramen ovale) Low back pain [...] file Legal Sex Female 5:33 AM SENIOR JAVA UI DEVELOPER Gender Identity Not on file Sexual Orientation [...] CDT Respiratory Rate 20 04/25/2024 8:41 AM SENIOR JAVA UI DEVELOPER Oxygen Saturation 95% 08/29/2024 10:05 AM CDT Inhaled Oxygen Concentration - - Weight 63.5 kg (140 lb) 08/29/2024 10:05 AM CDT Height 149.9 cm (4' 11) 08/29/2024 10:05 AM CDT Body Mass Index 28.28 08/29/2024 10:05 AM CDT Plan of Treatment Health Maintenance Due Date Last Done Comments Hepatitis B Screening 11[birth year]09[birth year]1969 Zoster Vaccine (1 of 2) 11/09/1970 Well Visit 65+ 09/28/2024 09/29/2023, 09/23, 11/04/2020 Influenza Vaccine (#1) 2024 Breast Cancer Screening-Mammogram 11/04/2024 11/05/2023, 11/05/2023, [...] 65+ Discontinued Medical Devices Implanted Type Area Circular Ripsaw Operator Device Identifier Shelf Expiration Date Model / Serial / Lot R-Hip 2014 Right: Hip Procedures Procedure Name Priority Date/Time Associated Diagnosis Comments ERYTHROCYTE SEDIMENTATION RATE Routine 08/29/2024 10:21 AM CDT Polyarthralgia custodial current use of therapeutic drug CRP (ACUTE PHASE) Routine 08/29/2024 10: 21 AM CDT Polyarthralgia custodial current use of therapeutic drug COMPREHENSIVE METABOLIC PANEL Routine 08/29/2024 10:21 AM CDT Polyarthralgia custodial current use of therapeutic drug CBC WITH AUTO DIFFERENTIAL Routine 08/29/2024 10:21 AM CDT Polyarthralgia custodial current use of therapeutic drug IR INJECTION SI JOINT LEFT WITH GUIDANCE Schedule Routine, Read Routine (OP Routine) 08/18/2024 10:40 AM CDT Chronic sacroiliac joint pain SURGICAL PATHOLOGY Routine 08/11/2024 12 :00 AM CDT Neoplasm of skin LOWER EXTREMITY VENOUS DOPPLER Schedule Routine, Read Routine (OP Routine) 07/29/2024 10:46 AM CDT SCAN - RADIOLOGY/IMAGING 07/29/2024 TPMT ACTIVITY Routine 07/28/2024 11:31 AM CDT Polyarthralgia superintendent terminal current use of therapeutic drug CRP (ACUTE PHASE) Routine 07/28/2024 11: 31 AM CDT Polyarthralgia ERYTHROCYTE SEDIMENTATION RATE Routine 07/28/2024 11:31 AM CDT Polyarthralgia CBC WITH AUTO DIFFERENTIAL Routine 07/28/2024 11:31 AM CDT Polyarthralgia custodial current use of therapeutic drug COMPREHENSIVE METABOLIC PANEL Routine 07/28/2024 11:31 AM CDT Polyarthralgia custodial current use of therapeutic drug SCAN - LABS 07/28/2024 DEXA AXIAL SKELETON BONE DENSITY 1 OR MORE SITES Schedule Routine, Read Routine (OP Routine) 07/25/2024 3:53 PM CDT Post-menopausal SCAN - RADIOLOGY/IMAGING 06/24/2024 DIAGNOSTIC MAMMOGRAM Schedule Routine, Read Routine (OP Routine) 11/05/2023 3:39 PM CDT HEPATITIS PANEL, ACUTE Routine 12/22/2021 11:17 AM CDT Fatigue, unspecified type COLONOSCOPY 03/25/2020 1:48 PM SENIOR JAVA UI DEVELOPER from Last 3 Months or Most Recently Relevant to Health Maintenance Results * (ABNORMAL) CBC with auto differential (08/29/2024 10:21 AM CDT) Pathologist [facility] WBC 8.6 3.8 - 10.8 Thousand/u L [...] BLOOD ORDERABLES Final Result Performing Organization Address City/[facility]/ZIP Co de Phone Number QUE[facility] [address] [place] [address] * (ABNORMAL) Erythrocyte sedimentation rate (08/29/2024 10:21 AM CDT) Pathologist [facility] Erythrocyte sedimentation rate 38(H) < OR = 30 mm/h [facility] Blood 08/29/2024 10:2 1 AM CDT 08/29/2024 10:21 AM CDT Tashia Annamaria [facility] LAB BLOOD ORDERABLES Final Result Performing Organization Address City/[facility]/ZIP Co de Phone Number [facility] [address] [place] [address] * CRP (acute phase) (08/29/2024 10:21 AM CDT) C-RP <3.0 <8.0 mg/L [facility] Blood 08/29/2024 10:2 1 AM CDT 08/29/2024 10:21 AM CDT Tashia [facility] LAB BLOOD ORDERABLES Final Result [facility] [address] [place] [address] * (ABNORMAL) Comprehensive metabolic panel (08/29/2024 10:21 AM CDT) Pathologist [facility] Glucose 80 65 - 99 mg/dL [facility] [...] BLOOD ORDERABLES Final Result Performing Organization Address City/[facility]/ZIP Co de Phone Number [facility] [address] [address] [place] [address] * IR Injection SI Joint Left with Guidance (08/18/2024 10:40 AM CDT) Narrative [facility] - 08/18/2024 10:40 AM CDT The images from this study are not interpreted by Radiology. Please refer to the physician's procedure / OR operative note. Nilesh Dos Santos MD IMG IR PROCEDURES Final Re sult Performing Organization Address [facility] Co de Phone Number [email or web address] * Surgical pathology (08/11/2024 12:00 AM CDT) Tissue (Skin, shave biopsy) 08/11/2024 08/11/2024 12:56 PM CDT Narrative [facility] - 08/15/2024 3:06 PM CDT EPIC results best viewed via link to PDF [facility] [facility], [address], [place] [address] [email or web address] [facility] Note to Patients: This report may contain [...] 08/15/2024 Submitting Physician Information: Jelly Rodríguez M.D. [address] [place] [address], [address] [place] [address], DERMATOPATHOLOGY REPORT RESULTS DIAGNOSIS: SKIN, LEFT FOREARM, [...] cr/tyc ICD-9 A; ZSD.808 Clerical Data A; 30717 The characteristics of special, immunohistochemical, and immunofluorescence stains and in-situ hybridization tests performed by the [facility] were deemed acceptable in ongoing quality control measures and in compliance with regulations drawn from the Clinical Laboratory Improvement Act wy0792 (CLIA '88). Control reactions for all stains performed were deemed adequate and appropriate by a pathologist prior to evaluation of patient tissue. Some diagnoses were rendered with the assistance of laboratory-developed tests utilizing analyte-specific reagents; the performance characteristic of these tests were determined by [facility] and are not cleared or approved by the [place] Food an Drug administration. Laboratory developed test may only be performed in a facility that is certified by the [facility] as a high-complexity laboratory under CLIA '88. These tests are used for clinical purposes and are not investigational. Jelly Rodríguez MD LAB PATHOLOGY ORDERABLES Final Result Performing Organization Address [facility]/ZIP Co de Phone Number DERMATOPATHOLOGY CENTER [facility] [place] [address] * LOWER EXTREMITY VENOUS DOPPLER (07/29/2024 10:46 AM CDT) Anatomical Region Laterality Modality N/A Ultrasound Historical Provider MD GUO US PROCEDURES Final R esult * SCAN - RADIOLOGY/IMAGING (07/29/2024) Anatomical Region Laterality Modality Other Sergei Antoinea l Result * TPMT activity profile, RBC (07/28/2024 11:31 AM CDT) Pathologist [facility] TPMT activity 13 nmol/hr/mL RBC [facility], Comment: Reference Range for TPMT Activity: >12 Normal 4-12 Heterozygote or low metabolizer <4 Homozygote Deficient Range This test was developed and its analytical performance characteristics have been determined by [facility]. It has not been cleared or approved by the FDA. This assay has been validated pursuant to the CLIA regulations and is used for clinical purposes. Blood 07/28/2024 11:3 1 AM CDT 07/28/2024 11:31 AM CDT Tashia GRAHAM LAB BLOOD ORDERABLES Final Result Performing Organization Address [facility]/ZIP Co de Phone Number QUEST [facility], [address] [place] [address] * (ABNORMAL) CBC with auto differential (07/28/2024 11:31 AM CDT) WBC 6.3 3.8 - 10.8 Thousand/u L [...] 1 AM CDT 07/28/2024 11:31 AM CDT us Tashia GRAHAM LAB BLOOD ORDERABLES Final Result [facility] [address] [address] * (ABNORMAL) Erythrocyte sedimentation rate (07/28/2024 11:31 AM CDT) Pathologist [facility] Erythrocyte sedimentation rate 41(H) < OR = 30 mm/h [facility] Blood 07/28/2024 11:3 1 AM CDT 07/28/2024 11:31 AM CDT Tashia GRAHAM LAB BLOOD ORDERABLES Final Result Performing Organization Address [facility] Co de Phone Number QUEST [facility] [address] [place] [address] * CRP (acute phase) (07/28/2024 11:31 AM CDT) C-RP 6.4 <8.0 mg/L [facility] Blood 07/28/2024 11:3 1 AM CDT 07/28/2024 11:31 AM CDT Tashia GRAHAM LAB BLOOD ORDERABLES Final Result Performing Organization Address [facility] de Phone Number QUEST [facility] [address] [place] [address] * (ABNORMAL) Comprehensive metabolic panel (07/28/2024 11:31 [...] 1 AM CDT 07/28/2024 11:31 AM CDT Result [facility] Tashia GRAHAM LAB BLOOD ORDERABLES Final Result [facility] [address] [place] [address] * SCAN - LABS (07/28/2024) Anjelica Huntley NP Final Result * (ABNORMAL) Dexa Axial Skeleton Bone Density 1 or 2 Site (07/25/2024 3:53 PM CDT) SCRIBED DXA T-SCORE 2.5 Anatomical Region Laterality Modality Body N/A Radiographic Tram ging Anjelica Huntley ELECTRONIC LAB TECHNICIAN IMG DXA PROCEDURES Final Resu lt * SCAN - RADIOLOGY/IMAGING (06/24/2024) Anatomical Region Laterality Modality Other Result [facility] Sergei adams Result * Diagnostic Mammogram (11/05/2023 3:39 PM CDT) Anatomical Region Laterality Modality Breast Mammography Historical Provider MD GUO MAMMO PROCEDURES Ca adams Result * Hepatitis panel, acute (12/22/2021 11:17 AM CDT) Hep A IgM NON-REACTI VE NON-REACT JUSTICE [facility] Comment: For additional information, please refer to http://[employer]/faq/HJF271 (This link is being provided for informational/ [...] a test for HCV RNA (test code 37912) is suggested. For additional information please refer to http://[employer]/faq/RNS78b0 (This link is being provided for informational/ educational purposes only.) Blood 12/22/2021 11:1 7 AM CDT 12/22/2021 11:18 AM CDT Tashia GRAHAM LAB MICROBIOLOGY - GE NERAL ORDERABLES Final Result [facility] [address] [address] * COLONOSCOPY (03/25/2020 1:48 PM SENIOR JAVA UI DEVELOPER) Anatomical Region Laterality Modality Other Narrative Procedure Note Joseph Guillaume MD PhD - 03/25/2020 1:48 PM CST ENDOSCOPY LAB Patient Name: Maggi De Leon Procedure Date: 03/25/2020 1:48 PM Date of : 1950 Admit Type: Outpatient Age: 69 Gender: Female Attending MD: Joseph Guillaume MD,PHD Room: [facility] ENDOSCOPY ROOM 03 Note Status: Finalized [...] The scope was passed under direct vision.The [id number] was introduced through the anuswith the intention of advancing to the ileum. The scopewas advanced to the sigmoid colon before the procedurewas aborted. Medications were given. The scope waspassed under direct vision. The [id number] was introduced through the anus and advanced [...] During normal business hours - Please call [facility] Coordinator: [phone]. After hours, evening, nights, weekends and holidays- Please call the hospital mixing tumbler operator at and ask for the GI fellow correctional security officer. Attending Participation: I personally performed the entire [...] Advance Directives For more information, please contact: [phone] * Full Code (Latest Code Status on File) Date Activated Date Inactivated Comments 03/25/2020 11:54 AM 03/25/2020 7:31 PM * Full Code Date Activated Date Inactivated Comments 08/04/2018 10:36 AM 08/04/2018 5:07 PM Care Teams Petroleum Sampler Relationship Specialty Start Date End Date Anjelica Huntley, ELECTRONIC LAB TECHNICIAN [address] [facility] [place] [address] PCP - General Internal Medicine 06/10/22 Buzz Blankenship MD [address] [place] [address] Consulting Physician Rheumatology 04/14/21
--- OUTSIDE RECORDS SUMMARY | 2024-09-15 14:05 | XMS_ITS | Encounter Summary ---
Author Organization [facility] Address [address] [place] [address] Phone Care Team Providers Care Parent Trainer Name Role Phone Buzz Blankenship MD Unavailable [phone] Anjelica Huntley NP Primary Care Provider [phone] Encounter Details Date Type Department Care Team (Latest Contact Info) Description 08/30/2024 Results Follow-Up [facility] [address] [place] [address] Tashia Kirk PA [address] [place] [address] CBC with auto differential, Comprehensive metabolic panel, CRP (acute phase), Erythrocyte sedimentation rate Social History Tobacco Use Types Packs/Day Years [...] on file Legal Sex Female 5:33 AM CONFECTIONERY 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 Gender Identity Not on file Sexual Orientation Not on file Occupation Industry Job Start Date Job End Date Retired Not on file Not on file Not on file documented as of this encounter Plan of Treatment Not on file documented as of this encounter Visit Diagnoses Not on filedocumented in this encounter Care Teams Parent Trainer Relationship Specialty Start Date End Date Anjelica Huntley MID LEVEL PROVIDER [address] [place] [address] PCP - General Internal Medicine 06/10/22 Buzz Blankenship MD [address] [place] [address] Consulting Physician Rheumatology 04/14/21 documented as of this encounter
--- OUTSIDE RECORDS SUMMARY | 2024-09-15 14:05 | XMS_ITS | Encounter Summary ---
Author Organization [facility] Healthcare Address [address] [place] [address] Care Team Providers Care Solution Design Engineer Name Role Phone Buzz Blankenship MD Unavailable Anjelica Huntley NP Primary Care Provider [phone] Encounter Details Date Type Department Care Team (Late st Contact Info) Description 2022 Telephone [facility] Radiology [address] [facility] [address] [place] [address] Emili Goode, RT Social History Tobacco [...] on file Legal Sex Female 5:33 AM CASINO ACCOUNTANT Gender Identity Not on file Sexual Orientation [...] Time Diarrhea 03/30/2023 03/30/2023 04/13/2023 3:06 AM CASINO ACCOUNTANT documented as of this encounter Care Teams Solution Design Engineer Relationship Specialty Start Date End Date Anjelica Huntley NP [address] [facility] [address] [place] [address] PCP - General Internal Medicine 06/10/22 Buzz Blankenship MD [address] [facility] [address] [place] [address] Consulting Physician Rheumatology 04/14/21 documented as of this encounter
--- OUTSIDE RECORDS SUMMARY | 2024-09-15 14:05 | XMS_ITS | Encounter Summary ---
Author Organization [facility] Address [address] [place] [address] Phone Care Team Providers Care Communication Electronic Technician Name Role Phone Era Espinoza MD Primary Care Provider + [phone] Era Espinoza MD Primary Care Provider + [phone] Unknown, Notinfile Primary Care Provider Unavail Annamaria Farooq Primary Care Provider [phone] Buzz Blankenship MD Unavailable [phone] Anjelica Huntley NP Primary Care Provider [phone] Anjelica Huntley NP Primary Care Provider [phone] Encounter Details Date Type Department Care Team [...] on file Legal Sex Female 5:33 AM PET CARE ASSISTANT Gender Identity Not on file Sexual [...] COVID: Suspected 02/19/2020 02/19/2020 02/19/2020 12:10 PM PET CARE ASSISTANT COVID: Suspected 02/19/2020 02/19/2020 02/21/2020 2:47 PM PET CARE ASSISTANT Respiratory Infection (RANDAL), contact + droplet Comment:Automatically added due to negative COVID-19 result. 02/21/2020 02/21/2020 03/06/2020 3:0 7 AM PET CARE ASSISTANT Diarrhea 03/30/2023 03/30/2023 04/13/2023 3:06 AM PET CARE ASSISTANT documented as of this encounter Care Teams Communication Electronic Technician Relationship Specialty Start Date End Date Era Espinoza MD PCP - General Family Practice 11/22/17 03/07/19 Era Espinoza MD PCP - General Family Practice 03/08/19 10/10/19 Unknown, Notinfile PCP - General 10/11/19 10/15/19 Annamaria Bates PA PCP - General Senior Underwriting Assistant 10/16/19 12/01/21 Anjelica Huntley, SEARCH ENGINE OPTIMIZER [address] [address] [place] [address] PCP - General Internal Medicine 12/02/21 06/09/22 Anjelica Huntley SEARCH ENGINE OPTIMIZER [address] [facility] [address] [place] [address] PCP - General Internal Medicine 06/10/22 Buzz Blankenship MD [address] [place] [address] Consulting Physician Rheumatology 04/14/21 documented as of this encounter
--- OUTSIDE RECORDS SUMMARY | 2024-09-15 14:05 | XMS_ITS | Encounter Summary ---
Author Organization [facility] Healthcare Address [address] [place] [address] Care Team Providers Care Ops Manager Name Role Phone Vidya Carlson MD Primary Care Provider Abner Chavez Primary Care Provid er Vidya Carlson MD Primary Care Provider Abner Chavez Primary Care Provid er Abner Chavez Primary Care Provid er Era Espinoza MD Primary Care Provider + [phone] Era Espinoza MD Primary Care Provider [phone] Era Espinoza MD Primary Care Provider [phone] Era Espinoza MD Primary Care Provider [phone] Era Espinoza MD Primary Care Provider + [phone] Unknown, Notinfile Primary Care Provider Unavail able Annamaria Bates Primary Care Provider [phone] Buzz Blankenship MD Unavailable [phone] Anjelica Huntley FILTER TANK OPERATOR Primary Care Provider [phone] Anjelica Huntley FILTER TANK OPERATOR Primary Care Provider [phone] Encounter Details Date Type Department Care Team (Late st Contact Info) Description 10/31/2016 Orders Only [facility] [address] [place] [address] Scanning, Provider Social History Tobacco Use Types Packs/Day Years Used Date Smoking Tobacco: Former Comments Unknown Sex and Gender Information Value Date Recorded Sex Assigned at Not on file Legal Sex Female 5:33 AM CEMENT FINISHING SUPERVISOR Gender Identity Not on file Sexual Orientation Not on file documented as of this encounter Plan of Treatment Not on file documented as of this encounter Procedures Procedure Name Priority Date/Time Associated Diagnosis Comments CARDIOLOGY DOCUMENT SCAN 10/31/2016 documented in this encounter Results * Cardiology Document Scan (10/31/2016) Anatomical Region Laterality Modality Other us Provider Scanning CV CARDIAC SERVICES PROCEDURES Final Result documented in this encounter Visit Diagnoses Not on filedocumented in this encounter Additional Health Concerns Infection Onset Date Last Indicated Resolved Time COVID: Suspected 02/19/2020 02/19/2020 02/19/2020 12:10 PM CEMENT FINISHING SUPERVISOR COVID: Suspected 02/19/2020 02/19/2020 02/21/2020 2:47 PM CEMENT FINISHING SUPERVISOR Respiratory Infection (RANDAL), contact + droplet Comment:Automatically added due to negative COVID-19 result. 02/21/2020 02/21/2020 03/06/2020 3:0 7 AM CEMENT FINISHING SUPERVISOR Diarrhea 03/30/2023 03/30/2023 04/13/2023 3:06 AM CEMENT FINISHING SUPERVISOR documented as of this encounter Care Teams Ops Manager Relationship Specialty Start Date End Date Vidya Carlson MD [address] [place] [address] PCP - General 09/28/16 11/22/16 Abner Chavez PA [address] [place] [address] PCP - General 11/23/16 11/30/16 Vidya Carlson MD [address] [place] [address] PCP - General 12/01/16 03/07/17 Abner Chavez PA [address] [facility] [place] [address] PCP - General 03/08/17 03/14/17 Abner Chavez PA [address] [facility] [place] [address] PCP - General 03/15/17 07/19/17 Era Espinoza MD [address] [facility] [place] [address] PCP - General 07/20/17 07/28/17 Era Espinoza MD [address] [facility] [place] [address] PCP - General 07/29/17 09/20/17 Era Espinoza MD [address] [facility] [place] [address] PCP - General Family Practice 09/21/17 11/21/17 Era Espinoza MD [address] [facility] [place] [address] PCP - General Family Practice 11/22/17 03/07/19 Era Espinoza MD [address] [facility] [place] [address] PCP - General Family Practice 03/08/19 10/10/19 Unknown, Notinfile PCP - General 10/11/19 10/15/19 Annamaria Bates PA PCP - General Appointment Clerk 10/16/19 12/01/21 Anjelica Huntley NP [address] [place] [address] PCP - General Internal Medicine 12/02/21 06/09/22 Anjelica Huntley, MARTA [address] [place] [address] [address] [place] [address] PCP - General Internal Medicine 06/10/22 Buzz Blankenship MD [address] [place] [address] Consulting Physician Rheumatology 04/14/21 documented as of this encounter
--- OUTSIDE RECORDS SUMMARY | 2024-09-15 14:05 | XMS_ITS | Encounter Summary ---
Author Organization [facility] Healthcare Address [address] [place] [address] Care Team Providers Care Hide Selector Name Role Phone Annamaria Bates Primary Care Provider [phone] Reason for Visit * Diagnostic Imaging (Routine) - Pending Review Specialty Diagnoses / Procedures Referred By Douglas t Referred To Contact Procedures Breast Imaging US Outside Reference Referral, Self Referral ID Status Reason Start Date Expiration Date V isits Requested Visits Authorized [id number] Pending Review 07/05/2024 08/04/2025 1 1 Encounter Details Date Type Department Care Team (Late st Contact Info) Description 04/24/2020 12:05 AM VACUUM SYSTEM TESTER Hospital Encounter [facility] Imaging [address] [place] [address] Social History Tobacco Use Types Packs/Day Years [...] on file Legal Sex Female 5:33 AM VACUUM SYSTEM TESTER Gender Identity Not on file Sexual [...] US OUTSIDE REFERENCE Routine 04/24/2020 12:05 AM VACUUM SYSTEM TESTER documented in this encounter Results * Breast Imaging US Outside Reference (04/24/2020 12:05 AM VACUUM SYSTEM TESTER) Impressions RAD_MAMMO_[facility] - 07/05/2024 8:27 AM CDT These images are for Reference purposes only and have not been reviewed by [facility] Radiology. There will be no report generated by a [facility] Radiologist. Narrative RAD_MAMMO[facility] - 07/05/2024 8:27 AM CDT EXAMINATION: Images For Reference Purposes Only us Self Referral IMG MAMMO PROCEDURES Final Resul t [facility]MO[facility] documented in this encounter Visit Diagnoses Not on filedocumented in this encounter Additional Health Concerns Infection Onset Date Last Indicated Resolved Time Diarrhea 03/30/2023 03/30/2023 04/13/2023 3:06 AM VACUUM SYSTEM TESTER documented as of this encounter Care Teams Hide Selector Relationship Specialty Start Date End Date Annamaria Bates PA PCP - General Security Tech 10/16/19 12/01/21 documented as of this encounter
--- OUTSIDE RECORDS SUMMARY | 2024-09-15 14:05 | XMS_ITS | Encounter Summary ---
Author Organization [facility] Address [address] [place] [address] Phone Care Team Providers Care Seaman Officer Name Role Phone Buzz Blankenship MD Unavailable [phone] Anjelica Huntley NP Primary Care Provider Encounter Details Date Type Department Care Team (Late st Contact Info) Description 09/29/2022 Orders Only [facility] [phone] Scanning, Provider Social History Tobacco Use Types [...] on file Legal Sex Female 5:33 AM COLD MILL SUPERVISOR Gender Identity Not on file Sexual [...] Time Diarrhea 03/30/2023 03/30/2023 04/13/2023 3:06 AM COLD MILL SUPERVISOR documented as of this encounter Care Teams Seaman Officer Relationship Specialty Start Date End Date Anjelica Huntley NP [address] [place] [address] PCP - General Internal Medicine 06/10/22 Buzz Blankenship MD [address] [place] [address] Consulting Physician Rheumatology 04/14/21 documented as of this encounter
--- OUTSIDE RECORDS SUMMARY | 2024-09-15 14:05 | XMS_ITS | Encounter Summary ---
Author Organization [facility] Address [address] [place] [address] Phone Care Team Providers Care Softball Winder Name Role Phone Era Espinoza MD Primary Care Provider + [phone] Era Espinoza MD Primary Care Provider [phone] Unknown, Notinfile Primary Care Provider Unavail Annamaria Farooq Primary Care Provider [phone] Buzz Blankenship MD Unavailable [phone] Anjelica Huntley NP Primary Care Provider [phone] Anjelica Huntley BENCH CARPENTER Primary Care Provider [phone] Encounter Details Date Type Department Care Team [...] on file Legal Sex Female 5:33 AM LAY OUT HELPER Gender Identity Not on file Sexual Orientation [...] COVID: Suspected 02/19/2020 02/19/2020 02/19/2020 12:10 PM LAY OUT HELPER COVID: Suspected 02/19/2020 02/19/2020 02/21/2020 2:47 PM LAY OUT HELPER Respiratory Infection (RANDAL), contact + droplet Comment:Automatically added due to negative COVID-19 result. 02/21/2020 02/21/2020 03/06/2020 3:0 7 AM LAY OUT HELPER Diarrhea 03/30/2023 03/30/2023 04/13/2023 3:06 AM LAY OUT HELPER documented as of this encounter Care Teams Softball Winder Relationship Specialty Start Date End Date Era Espinoza MD PCP - General Family Practice 11/22/17 03/07/19 Era Espinoza MD PCP - General Family Practice 03/08/19 10/10/19 Unknown, Notinfile PCP - General 10/11/19 10/15/19 Annamaria Bates PA PCP - General Sales Service Manager 10/16/19 12/01/21 Anjelica Huntley BENCH CARPENTER [address] [place] [address] PCP - General Internal Medicine 12/02/21 06/09/22 Anjelica Huntley BENCH CARPENTER [address] [place] [address] PCP - General Internal Medicine 06/10/22 Buzz Blankenship MD [address] [place] [address] Consulting Physician Rheumatology 04/14/21 documented as of this encounter
--- OUTSIDE RECORDS SUMMARY | 2024-09-15 14:05 | XMS_ITS | Continuity of Care Document ---
Author Organization [facility] Address [address] [place] [address] Phone Care Team Providers Care Grease Press Helper Name Role Phone Navid Srivastava MD Unavailable Unavailable Procedures Procedure Date Post-op Follow-up Visit Post-op Follow-up Visit After Cataract Laser Surgery Eye Exam & Treatment Corneal Pachymetry Advance Directives Directive Yes / No Effective Date File Name No Information Encounters Encounter Description Practice Location Reason(s) For Visit Diagnoses Date Provider Providers Copied on Encounter [facility], [address] [place] [address] [address], [place], [place], [id number], tel:[phone] SEC David DALJIT Professional No Information 1 Atif Shoemaker. [address] [employer] [place], [id number], [place]. tel:[phone] Referring Provider: aNvid Brown [address] [employer]mer[facility] A, [place], [address] . tel:[phone] [facility], [address], [place], [place], [address], tel:[phone] SEC David DALJIT Professional No Information 1 Atif Shoemaker. [address] [employer] [facility] [place], [place], [id number], [place]. tel:[phone] Referring Provider: Navid Brown, [address] [facility] [place], [address] . tel:[phone] [facility], [address] [facility] [address], [place], [place], [address], tel:[phone] SEC [place] Professional No Information Oct 3-201 1 Atif Shoemaker. [address] [facility], [facility] [place], [place], [id number], . tel:[phone] Referring Provider: Navid Brown, [address] [facility] [place], [address] . tel:[phone] [facility], [address], [place], [place], [address], tel:[phone] SEC David [place] Professional No Information Oct-2 0-201 1 Atif Shoemaker. [address] [facility], [facility] [place], [place], [address], . tel:[phone] Referring Provider: Navid Brown, [address] [facility] [place], [address] . tel:[phone] Family History Family Member Type Diagnosis Age At Onset No Information Payers Payer name Insurance type Covered constitution party ID Authoriza tion(s) No Information Social [...]
--- OUTSIDE RECORDS SUMMARY | 2024-09-15 14:05 | XMS_ITS | Encounter Summary ---
Author Organization [facility] Address [address] [place] [address] Phone Care Team Providers Care Filer Finish Name Role Phone Buzz Blankenship MD Unavailable [phone] Anjelica Huntley NP Primary Care Provider [phone] Encounter Details Date Type Department Care Team (Late st Contact Info) Description 08/15/2024 Results Follow-Up [facility] Dermatology [address] [facility] [address] [place] [address] Jelly Rodríguez MD [address] [facility] [address] [place] [address] Surgical pathology Social History Tobacco Use Types Packs/Day Years [...] on file Legal Sex Female 5:33 AM SCOUT LEASER Gender Identity Not on file Sexual Orientation Not on file Occupation Industry Job Start Date Job End Date Retired Not on file Not on file Not on file documented as of this encounter Plan of Treatment Not on file documented as of this encounter Visit Diagnoses Not on filedocumented in this encounter Care Teams Filer Finish Relationship Specialty Start Date End Date Anjelica Huntley NP [address] [place] [address] PCP - General Internal Medicine 06/10/22 Buzz Blankenship MD [address] [place] [address] Consulting Physician Rheumatology 04/14/21 documented as of this encounter
--- OUTSIDE RECORDS SUMMARY | 2024-09-15 14:05 | XMS_ITS | Encounter Summary ---
Author Organization [facility] Healthcare Address [address] [place] [address] Care Team Providers Care Technologist Infectious Disease Name Role Phone Annamaria Bates Primary Care Provider [phone] Reason for Visit * Diagnostic Imaging (Routine) - Pending Review Specialty Diagnoses / Procedures Referred By Rahulac t Referred To Contact Procedures Breast Imaging US Outside Reference Referral, Self Referral ID Status Reason Start Date Expiration Date V isits Requested Visits Authorized [id number] Pending Review 07/05/2024 08/04/2025 1 1 Encounter Details Date Type Department Care Team (Late st Contact Info) Description 04/24/2020 Hospital Encounter [facility] Imaging [address] [place] [address] Social History Tobacco Use Types Packs/Day Years [...] file Legal Sex Female 5:33 AM MANAGER TELEMETRY Gender Identity Not on file Sexual Orientation [...] US OUTSIDE REFERENCE Routine 04/24/2020 12:00 AM MANAGER TELEMETRY documented in this encounter Results * Breast Imaging US Outside Reference (04/24/2020 12:00 AM MANAGER TELEMETRY) Impressions [facility] - 07/05/2024 8:27 AM CDT These images are for Reference purposes only and have not been reviewed by [facility] Radiology. There will be no report generated by a [facility] Radiologist. Narrative [facility] - 07/05/2024 8:27 AM CDT EXAMINATION: Images For Reference Purposes Only us Self Referral IMG MAMMO PROCEDURES Final Resul t [facility] documented in this encounter Visit Diagnoses Not on filedocumented in this encounter Additional Health Concerns Infection Onset Date Last Indicated Resolved Time Diarrhea 03/30/2023 03/30/2023 04/13/2023 3:06 AM MANAGER TELEMETRY documented as of this encounter Care Teams Technologist Infectious Disease Relationship Specialty Start Date End Date Annamaria Bates PA PCP - General Fuel Cell Designer 10/16/19 12/01/21 documented as of this encounter
--- OUTSIDE RECORDS SUMMARY | 2024-09-15 14:05 | XMS_ITS | Encounter Summary ---
Author Organization [facility] Address [address] [place] [address] Phone Care Team Providers Care Video Game Script Writer Name Role Phone Buzz Blankenship MD Unavailable [phone] Anjelica Huntley NP Primary Care Provider [phone] Encounter Details Date Type Department Care Team (Latest Contact Info) Description 08/04/2024 Results Follow-Up [facility] [address] [place] [address] Tashia Kirk PA [address] [place] [address] Comprehensive metabolic panel, CBC with auto differential, Erythrocyte sedimentation rate, Additional followed-up results: 2 Social History Tobacco Use Types Packs/Day Years [...] on file Legal Sex Female 5:33 AM CASE FITTER Gender Identity Not on file Sexual Orientation Not on file Occupation Industry Job Start Date Job End Date Retired Not on file Not on file Not on file documented as of this encounter Plan of Treatment Not on file documented as of this encounter Visit Diagnoses Not on filedocumented in this encounter Care Teams Video Game Script Writer Relationship Specialty Start Date End Date Anjelica Huntley NP [address] [place] [address] PCP - General Internal Medicine 06/10/22 Buzz Blankenship MD [address] [place] [address] Consulting Physician Rheumatology 04/14/21 documented as of this encounter
--- OUTSIDE RECORDS SUMMARY | 2024-09-15 14:05 | XMS_ITS | Encounter Summary ---
Author Organization [facility] Healthcare Address [address] [place] [address] Care Team Providers Care Washer And Capper Machine Operator Name Role Phone Annamaria Bates Primary Care Provider [phone] Reason for Visit * Diagnostic Imaging (Routine) - Pending Review Specialty Diagnoses / Procedures Referred By Contac t Referred To Contact Procedures Breast Imaging Diagnostic Outside Reference Referral, Self Referral ID Status Reason Start Date Expiration Date V isits Requested Visits Authorized [id number] Pending Review 07/05/2024 08/04/2025 1 1 Encounter Details Date Type Department Care Team (Late st Contact Info) Description 04/24/2020 12:10 AM CHANNEL SALES DIRECTOR Hospital Encounter [facility] Imaging [address] [place] [address] Social History Tobacco Use Types Packs/Day Years [...] file Legal Sex Female 5:33 AM CHANNEL SALES DIRECTOR Gender Identity Not on file Sexual [...] DIAGNOSTIC OUTSIDE REFERENCE Routine 04/24/2020 12:10 AM CHANNEL SALES DIRECTOR documented in this encounter Results * Breast Imaging Diagnostic Outside Reference (04/24/2020 12:10 AM CHANNEL SALES DIRECTOR) Impressions [facility] - 07/05/2024 8:27 AM CDT These images are for Reference purposes only and have not been reviewed by [facility] Radiology. There will be no report generated by a [facility] Radiologist. Narrative [facility] - 07/05/2024 8:27 AM CDT EXAMINATION: Images For Reference Purposes Only us Self Referral IMG MAMMO PROCEDURES Final Resul t [facility] documented in this encounter Visit Diagnoses Not on filedocumented in this encounter Additional Health Concerns Infection Onset Date Last Indicated Resolved Time Diarrhea 03/30/2023 03/30/2023 04/13/2023 3:06 AM CHANNEL SALES DIRECTOR documented as of this encounter Care Teams Washer And Capper Machine Operator Relationship Specialty Start Date End Date Annamaria Bates PA PCP - General Orthotic Fitter 10/16/19 12/01/21 documented as of this encounter
--- OUTSIDE RECORDS SUMMARY | 2024-09-15 14:06 | XMS_ITS | Encounter Summary ---
Author Organization [facility] Address [address] [place] [address] Phone Care Team Providers Care Formal Service Waiter Name Role Phone Era Espinoza MD Primary Care Provider [phone] Era Espinoza MD Primary Care Provider [phone] Unknown, Notinfile Primary Care Provider Unavail Annamaria Farooq Primary Care Provider [phone] Buzz Blankenship MD Unavailable [phone] Anjelica Huntley NP Primary Care Provider [phone] Anjelica Huntley NP Primary Care Provider [phone] Encounter Details Date Type Department Care Team [...] on file Legal Sex Female 5:33 AM PRESS SETTER Gender Identity Not on file Sexual Orientation [...] COVID: Suspected 02/19/2020 02/19/2020 02/19/2020 12:10 PM PRESS SETTER COVID: Suspected 02/19/2020 02/19/2020 02/21/2020 2:47 PM PRESS SETTER Respiratory Infection (RANDAL), contact + droplet Comment:Automatically added due to negative COVID-19 result. 02/21/2020 02/21/2020 03/06/2020 3:0 7 AM PRESS SETTER Diarrhea 03/30/2023 03/30/2023 04/13/2023 3:06 AM PRESS SETTER documented as of this encounter Care Teams Formal Service Waiter Relationship Specialty Start Date End Date Era Espinoza MD PCP - General Family Practice 11/22/17 03/07/19 Era Espinoza MD PCP - General Family Practice 03/08/19 10/10/19 Unknown, Notinfile PCP - General 10/11/19 10/15/19 Annamaria Bates PA PCP - General Cloth Mercerizer Back Tender 10/16/19 12/01/21 Anjelica Huntley, BUSINESS MACHINE MECHANIC [address] [place] [address] PCP - General Internal Medicine 12/02/21 06/09/22 Anjelica Huntley BUSINESS MACHINE MECHANIC [address] [facility] [address] [place] [address] PCP - General Internal Medicine 06/10/22 Buzz Blankenship MD [address] [place] [address] Consulting Physician Rheumatology 04/14/21 documented as of this encounter
--- OUTSIDE RECORDS SUMMARY | 2024-09-15 14:06 | XMS_ITS | Data Portability ---
Author Organization [facility] Address [address] [address] Assessment No assessment recorded. Plan of Treatment Reminders Order Date Submit Date Provider Last Modified By Organization Details Last Modified Time Details Appointments None recorded. Lab None recorded. Referral None recorded. Procedures None recorded. Surgeries None recorded. Imaging ultrasound, lower extremity, nonvascular 2015 016 [email or web address] Not available 14:09:41 x-ray, weightbeari ng knee - room 3 2015 Huey [email or web address] Not available 18:07:47 Medication Orders None recorded. Patient TargetsNo targets recorded. Patient Instructions Encounter Date Encounter Id Patient Instructions Last Modified By Organization Details Last Modified Time 03/14/2015 [id number] knee arthritis: care instructions Not available 03/20/2015 14:20:20 knee pain or injury: care instructions Not available 03/20/2015 14:20:20 hip arthritis: care instructions Not available 03/20/2015 14:20:20 osteoarthritis: care instructions Not available 03/20/2015 14:20:20 Reason for Referral None Reported. Problems Name Problem SNOMED Code Status Onset Date Resolution Date Notes Provider Name and Address Organization Details Recorded Time Knee pain Active Scot bobby [facility], [employer] 6 14:01:24 Osteoarthritis of hip 056966887 Active Scot bobby [facility], [facility] 6 14:01:23 Osteoarthritis of knee 258655924 Active Scot bobby [facility], [facility] 6 14:01:23 Problem Notes None recorded. Procedures Surgical History Date Name Laterality Status Provider Name and Address Organization Details Recorded Time 02/22/18 89 Hysterectomy completed [facility] 03/14/2015 12:39:44 02/22/18 78 Caesarean Section completed [facility] 03/14/2015 12:39:44 Imaging Results None recorded. Procedure Notes None recorded. Medical Equipment None Reported. Allergies Allergen ID Allergen Name Allergen Category Reaction Reaction Severity Criticality Documentation Date Start Date Code Code System Note Provider Name and Address Organization Details Recorded Time 07185 Product containin g penicilli n (product) medicatio n hives Not available Not available 03/14/2015 88263 8001 [facility]OMED [facility] 6 12:39:44 36225 tramadol medicatio n vomiting Not available Not available 03/14/2015 69165 RxNorm [facility] 6 12:39:44 Medications Name Sig [...] Body weight Heart rate Body height Systolic And Diastolic Provider Name and Address Organization Details Last Updated DateTime 03/14/2015 30.2 kg/m2 83034.77 92 g 73 /min 154.94 cm 148/95 mm[Hg] [facility] 6 12:39:44 Social History Question Answer Notes LastModified by Organizat ion Details LastModified Time Tobacco Smoking Status [facility] 03/14/2015 12:39:44 Marital Status Informati on [...] Gout N Kidney Stones N Hyperthyroidism N Hernia N Head Trauma/Injury N Hypothyroidism N Lung Disease N Blood [...] Multiple Sclerosis N Ulcers N Heart Attack ([place]) N Diabetes N Bleeding Disorder N Seizures/Epilepsy [...] SNOMED-CT Code Diagnosis ICD10 Code Diagnosis Note [id number] Sharri Jaramillo MD [facility] [address] [facility] [address] [facility] ROBER GUTIERREZ [address] 03/14/2015 12:00:32 03/14/2015 14:09:41 Knee pain 41098648 M25.561 Osteoarthritis of hip 23 3659298 M16.9 Osteoarthr itis of knee 700620529 M17.9 Health Concerns Section Related Observation LastModified by Organization Detai ls LastModified Time None Recorded Concern Status LastModified by Organization Details LastModified Time None Recorded Advance Directives Directive None Recorded Payers Insurance Date Sequence Insurance Name Policy Number Policy Dennison Covered Member ID Dennison Member ID Guarantor Name 03/14/2015 1 *SELF PAY* Lance Kamara Notes Date Note Type Note Provider Name and Address Organization Details Recorded Time 03/14/2015 text/html See Dictated NoteReported by PatientSEE DICTATED NOTES ROBER Calles - [facility], [facility] 03/18/2015 06:21:41 OBGyn Episode No OBEpisode recorded.
--- OUTSIDE RECORDS SUMMARY | 2024-09-15 14:06 | XMS_ITS | Patient Health Record ---
Author Organization [facility] [email or web address] Address [address] [place] [address] Care Team Providers Care Circulation Manager Name Role Phone Triston Graham Unavailable [phone] Reason For Referral No Information Medications Medication SIG (Take, Route, Frequency, Duration) Notes Start Date End Date Status FLUoxetine HCl 40 MG TAKE 1 CAPSULE BY MOUTH EVERY DAY; Duration: 90 Active Methotrexate 2.5 MG Oral 08/31/2022 Active RABEprazole Sodium 20 MG Oral 08/31/2022 Active HUMIRA(CF) PEN 40 MG/0.4 ML SUBCUTANEOUS KIT *Reorder from [employer] for eRx and Interaction Alerts* 08/31/2022 Active Triamterene-HCTZ 37.5-25 MG Oral 08/31/2022 Active Linzess 72 mcg Oral 08/31/2022 Acti ve Fluticasone Propionate Diskus 50 MCG/ACT Inhalation *Reorder from [employer] for eRx and Interaction Alerts* 08/31/2022 Active FLUoxetine HCl 20 MG Oral 08/31/2022 Active Venlafaxine HCl ER 37.5 MG Oral 08/31/2022 Active Fluconazole 150 MG Oral 08/31/2022 Active FLUoxetine HCl 10 MG Oral 08/31/2022 Active traZODone HCl 50 MG Oral 08/31/2022 Active Nystatin-Triamcinolo ne 015978-7.1 UNIT/GM External 08/31/2022 Active Linzess 145 MCG Oral 08/31/2022 Act nena diazePAM 5 MG Oral 08/31/2022 Activ e Celecoxib 200 MG Oral 08/31/2022 Ac tive Humira 40 MG/0.8ML Subcutaneous 08/31/2022 Active Naproxen 500 MG Oral 08/31/2022 Act nena ALPRAZolam 0.25 MG Oral 08/31/2022 Active Folic Acid 1 MG Oral 08/31/2022 Act nena Ondansetron 4 MG Oral 08/31/2022 Ac tive Immunizations Vaccine Route Administration Date Status Comme nts Tdap Unknown 08/02/2015 Administered Plan Of Treatment No Information Insurance Providers Payer Name Payer Address Payer Phone Subscriber Number Group Number Insured Name Patient Relationship to Insured Coverage Start Date Coverage End Date Medicare-I l Medicare [address] [place] [phone] [id number] HEIDI DE LEON Self - patient is the insured Medical (General) History Surgical History Surgery Date(Month/Year) Cataract surgery (68248) Any surgical history Hysterectomy (21420) Removal of gallbladder (60648)
--- NOTE | 2024-09-15 14:14 | ECG_ITS ---
Test Date: 2024-09-15 14:18:12 Measurements Intervals [place] Rate: 79 P: 28 OR: 162 QRS: 13 QRSD: 77 T: 16 QT: 372 QTc: 428 Interpretive Statements SINUS RHYTHM CONSIDER INFERIOR INFARCT, AGE INDETERMINATE Compared to ECG 05/25/2024 13:28:50 NO SIGNIFICANT CHANGES Electronically Signed On 09-16-2024 18:40:53 CDT by Lakhwinder Gonzalez M.D.
[2024-09-15 14:36] LABS: Hematocrit 37.6 % (37.0-47.0); Hemoglobin 13.1 g/dL (12.0-15.0); Immature Granulocyte Percent A 0.5 % (0-0.5); Lymphocytes Absolute Auto 1.79 K/mm3 (0.9-3.2); Mean Corpuscular HGB Conc 34.8 g/dl (32-36); Mean Corpuscular Hemoglobin 30.9 pg (26-34); Mean Corpuscular Volume 88.7 fl (80-100); Nucleated Red Blood Cells Absolute Auto 0.000 K/mm3 (0.0-0.012); Nucleated Red Blood Cells Perc 0.0 % (0.0-0.2); Platelet Count Result 434 k/mm3 (150-375); Red Blood Count 4.24 M/mm3 (4.2-5.4); White Blood Count 8.7 K/mm3 (4.5-10.0)
[2024-09-15 14:50] LABS: Alanine Aminotransferase 22 U/L (6-35); Albumin Level 4.2 g/dL (3.5-5.1); Alkaline Phosphatase 98 U/L (38-126); Anion Gap 11 mmol/L (4-12); Aspartate Amino Transferase 38 U/L (14-36); Bilirubin,Total 0.2 mg/dL (0.2-1.3); Blood Urea Nitrogen 10 mg/dL (7-17); Calcium 9.3 mg/dL (8.4-10.2); Carbon Dioxide 26 mmol/L (22-30); Chloride 91 mmol/L (98-107); Estimated Glomerular Filt Rate > 60; Glucose 106 mg/dL (65-110); Lipase 227 U/L (23-300); Potassium 3.2 mmol/L (3.4-5.0); Sodium 128 mmol/L (137-145); Total Protein 7.6 g/dL (6.3-8.2)
[2024-09-15 14:51] LABS: INR 0.9; Partial Thromboplastin Time 24.7 Seconds (22.3-36.8); Prothrombin Time 12.1 Seconds (11.1-14.7)
[2024-09-15 15:03] LABS: Troponin I < 0.012 ng/mL (0.000-0.034)
--- NOTE | 2024-09-15 16:27 | PC.NURSE ---
lab called to add on TSHR and BNP
--- NOTE | 2024-09-15 16:59 | ECG_ITS ---
Test Date: 2024-09-15 17:29:03 Measurements Intervals [place] Rate: 69 P: 25 GA: 178 QRS: 10 QRSD: 89 T: 11 QT: 405 QTc: 435 Interpretive Statements SINUS RHYTHM CANNOT RULE OUT INFERIOR INFARCT, AGE INDETERMINATE Compared to ECG 09/15/2024 14:18:12 NO SIGNIFICANT CHANGES Electronically Signed On 09-16-2024 18:46:27 CDT by Lakhwinder Gonzalez M.D.
[2024-09-15 18:11] LABS: NT Pro B Type Natriuretic Pept 111 pg/mL (19.9-100); Troponin I < 0.012 ng/mL (0.000-0.034)
--- OUTSIDE RECORDS SUMMARY | 2024-09-15 18:23 | XMS_ITS | Encounter Summary ---
Author Organization [facility] Healthcare Address [address] [place] [address] Care Team Providers Care Cable Armorer Operator Name Role Phone Annamaria Bates Primary Care Provider [phone] Reason for Visit * Diagnostic Imaging (Routine) - Pending Review Specialty Diagnoses / Procedures Referred By Rahulac t Referred To Contact Procedures Breast Imaging US Outside Reference Referral, Self Referral ID Status Reason Start Date Expiration Date V isits Requested Visits Authorized [id number] Pending Review 07/05/2024 08/04/2025 1 1 Encounter Details Date Type Department Care Team (Late st Contact Info) Description 04/24/2020 Hospital Encounter [facility] Imaging [address] [place] [address] Social History Tobacco Use Types Packs/Day Years [...] on file Legal Sex Female 5:33 AM CARD PUNCHER Gender Identity Not on file Sexual Orientation [...] US OUTSIDE REFERENCE Routine 04/24/2020 12:00 AM CARD PUNCHER documented in this encounter Results * Breast Imaging US Outside Reference (04/24/2020 12:00 AM CARD PUNCHER) Impressions [facility] - 07/05/2024 8:27 AM CDT These images are for Reference purposes only and have not been reviewed by [facility] Radiology. There will be no report generated by a [facility] Radiologist. Narrative [facility] - 07/05/2024 8:27 AM CDT EXAMINATION: Images For Reference Purposes Only us Self Referral IMG MAMMO PROCEDURES Final Resul t [facility] documented in this encounter Visit Diagnoses Not on filedocumented in this encounter Additional Health Concerns Infection Onset Date Last Indicated Resolved Time Diarrhea 03/30/2023 03/30/2023 04/13/2023 3:06 AM CARD PUNCHER documented as of this encounter Care Teams Cable Armorer Operator Relationship Specialty Start Date End Date Annamaria Bates PA PCP - General Men'S Locker Room Attendant 10/16/19 12/01/21 documented as of this encounter
--- OUTSIDE RECORDS SUMMARY | 2024-09-15 18:23 | XMS_ITS | Encounter Summary ---
Author Organization [facility] Healthcare Address [address] [place] [address] Care Team Providers Care Payroll Coordinator Name Role Phone Annamaria Bates Primary Care Provider [phone] Reason for Visit * Diagnostic Imaging (Routine) - Pending Review Specialty Diagnoses / Procedures Referred By Douglas t Referred To Contact Procedures Breast Imaging US Outside Reference Referral, Self Referral ID Status Reason Start Date Expiration Date V isits Requested Visits Authorized [id number] Pending Review 07/05/2024 08/04/2025 1 1 Encounter Details Date Type Department Care Team (Late st Contact Info) Description 04/24/2020 12:05 AM CONSTRUCTION SITE CROSSING GUARD Hospital Encounter [facility] Imaging [address] [place] [address] Social History Tobacco Use Types Packs/Day Years [...] on file Legal Sex Female 5:33 AM CONSTRUCTION SITE CROSSING GUARD Gender Identity Not on file Sexual Orientation [...] US OUTSIDE REFERENCE Routine 04/24/2020 12:05 AM CONSTRUCTION SITE CROSSING GUARD documented in this encounter Results * Breast Imaging US Outside Reference (04/24/2020 12:05 AM CONSTRUCTION SITE CROSSING GUARD) Impressions [facility] - 07/05/2024 8:27 AM CDT These images are for Reference purposes only and have not been reviewed by [facility] Radiology. There will be no report generated by a [facility] Radiologist. Narrative [facility] - 07/05/2024 8:27 AM CDT EXAMINATION: Images For Reference Purposes Only us Self Referral IMG MAMMO PROCEDURES Final Resul t [facility] documented in this encounter Visit Diagnoses Not on filedocumented in this encounter Additional Health Concerns Infection Onset Date Last Indicated Resolved Time Diarrhea 03/30/2023 03/30/2023 04/13/2023 3:06 AM CONSTRUCTION SITE CROSSING GUARD documented as of this encounter Care Teams Payroll Coordinator Relationship Specialty Start Date End Date Annamaria Bates PA PCP - General Boot And Shoe Repairman 10/16/19 12/01/21 documented as of this encounter
--- OUTSIDE RECORDS SUMMARY | 2024-09-15 18:23 | XMS_ITS | Encounter Summary ---
Author Organization [facility] Healthcare Address [address] [place] [address] Care Team Providers Care Conciliation Court Judge Name Role Phone Annamaria Bates Primary Care Provider [phone]- [phone] Reason for Visit * Diagnostic Imaging (Routine) - Pending Review Specialty Diagnoses / Procedures Referred By Contac t Referred To Contact Procedures Breast Imaging Diagnostic Outside Reference Referral, Self Referral ID Status Reason Start Date Expiration Date V isits Requested Visits Authorized [id number] Pending Review 07/05/2024 08/04/2025 1 1 Encounter Details Date Type Department Care Team (Late st Contact Info) Description 04/24/2020 12:10 AM AUTO RENTAL SUPERVISOR Hospital [facility] [address] [place] [address] Social History Tobacco Use Types Packs/Day Years [...] on file Legal Sex Female 5:33 AM AUTO RENTAL SUPERVISOR Gender Identity Not on file Sexual [...] DIAGNOSTIC OUTSIDE REFERENCE Routine 04/24/2020 12:10 AM AUTO RENTAL SUPERVISOR documented in this encounter Results * Breast Imaging Diagnostic Outside Reference (04/24/2020 12:10 AM AUTO RENTAL SUPERVISOR) Impressions [facility] - 07/05/2024 8:27 AM CDT These images are for Reference purposes only and have not been reviewed by [facility] Radiology. There will be no report generated by a [facility] Radiologist. Narrative [facility]_M[facility]MO[facility] - 07/05/2024 8:27 AM CDT EXAMINATION: Images For Reference Purposes Only us Self Referral IMG MAMMO PROCEDURES Final Resul t [facility] documented in this encounter Visit Diagnoses Not on filedocumented in this encounter Additional Health Concerns Infection Onset Date Last Indicated Resolved Time Diarrhea 03/30/2023 03/30/2023 04/13/2023 3:06 AM AUTO RENTAL SUPERVISOR documented as of this encounter Care Teams Conciliation Court Judge Relationship Specialty Start Date End Date Annamaria Bates PA PCP - General Sql Manager 10/16/19 12/01/21 documented as of this encounter
--- OUTSIDE RECORDS SUMMARY | 2024-09-15 18:23 | XMS_ITS | Encounter Summary ---
Author Organization [facility] Address [address] [place] [address] Phone Care Team Providers Care Seniour Insight Manager Name Role Phone Buzz Blankenship MD Unavailable [phone] Anjelica Huntley NP Primary Care Provider [phone] Encounter Details Date Type Department Care Team (Late st Contact Info) Description 09/29/2022 Orders Only [facility] [phone] Scanning, Provider Social History Tobacco Use Types [...] on file Legal Sex Female 5:33 AM CUTTING AND SPLICING SUPERVISOR Gender Identity Not on file Sexual [...] Time Diarrhea 03/30/2023 03/30/2023 04/13/2023 3:06 AM CUTTING AND SPLICING SUPERVISOR documented as of this encounter Care Teams Seniour Insight Manager Relationship Specialty Start Date End Date Anjelica Huntley NP [address] [place] [address] PCP - General Internal Medicine 06/10/22 Buzz Blankenship MD [address] [place] [address] Consulting Physician Rheumatology 04/14/21 documented as of this encounter
--- OUTSIDE RECORDS SUMMARY | 2024-09-15 18:24 | XMS_ITS | Encounter Summary ---
Author Organization [facility] Healthcare Address [address] [place] [address] Care Team Providers Care Workforce Staffing Advisor Name Role Phone Annamaria Bates Primary Care Provider [phone] Buzz Blankenship MD Unavailable [phone] Anjelica Huntley STRING CUTTER Primary Care Provider [phone] Anjelica Huntley STRING CUTTER Primary Care Provider [phone] Encounter Details Date Type Department Care Team (Late st Contact Info) Description 05/28/2021 Telephone [facility] Radiology [address] [place] [address] Whitley De Jesus, RT Social [...] on file Legal Sex Female 5:33 AM VETERINARY SURGEON Gender Identity Not on file Sexual Orientation [...] Time Diarrhea 03/30/2023 03/30/2023 04/13/2023 3:06 AM VETERINARY SURGEON documented as of this encounter Care Teams Workforce Staffing Advisor Relationship Specialty Start Date End Date Annamaria Bates PA PCP - General External Auditor 10/16/19 12/01/21 Anjelica Huntley STRING CUTTER [address] [place] [address] PCP - General Internal Medicine 12/02/21 06/09/22 Anjelica Huntley STRING CUTTER [address] [place] [address] PCP - General Internal Medicine 06/10/22 Buzz Blankenship MD [address] [place] [address] Consulting Physician Rheumatology 04/14/21 documented as of this encounter
--- OUTSIDE RECORDS SUMMARY | 2024-09-15 18:24 | XMS_ITS | Clinical Summary ---
Author Organization [facility] Address [address] [place] [address] Care Team Providers Care Waste Handling Technician Name Role Phone Unavailable Primary Care Provider Unavailabl e Allergies Active Allergy Reactions Criticality Noted Date Comments Diphenhydramine-Acetamin ophen Nausea and Vomiting Low 07/24/2019 Ezetimibe Muscle Pain Medium 03/21/2021 Hydrocodone Nausea and Vomiting Low 03/04/2020 Penicillins Swelling Medium 03/13/2015 Pregabalin Other (See Comments) Low 04/14/2022 Blurred vision Mwnsyoc-Ajo-Vdz Reductase Inhibitors Muscle Pain Medium 03/21/2021 Tramadol [...] 2 Active fluticasone propionate (FLONASE) 50 mcg/spray [place], Suspension nasal inhaler 2 Active linaCLOtide (Linzess) [...] 03/25/2030 Insurance MEDICARE PART A AND B [facility] [employer]
--- OUTSIDE RECORDS SUMMARY | 2024-09-15 18:24 | XMS_ITS | Clinical Summary ---
Author Organization [facility] Address [address] [place] [address] Care Team Providers Care Welding Machine Operator Gas Name Role Phone Buzz Blankenship MD Unavailable [phone] Anjelica Huntley NP Primary Care Provider [phone] Allergies Active Allergy Reactions Criticality Noted Date Comments Bempedoic Acid Other (See comments) Low 11/29/2023 Muscle ache Hydrochlorothiazide Other (See comments) Low 04/20/2012 Hydrocodone Nausea & Vomiting,Dizziness ,Headache,Vomiting Low 05/26/2011 Pregabalin Other (See comments),Agitatio n Low 10/13/2021 Blurred vision Pain Medicine Vomiting Low 07/24/2019 Penicillins Swelling Medium 03/13/2015 Hixtubp-Hkw-Puz Reductase Inhibitors Muscle pain Medium 03/21/2021 Medications [...] Dysuria 03/16/2023 Coronary artery disease invo lving [place] coronary artery of [place] heart without angina pectoris 03/09/2023 History of [...] 05/20/2022 Assessment & Plan (12/29/2022 11:49 AM SAW CLEANER): Resolved with kenalog IM. Will defer restarting [...] 03/24/2022 Assessment & Plan (03/24/2022 10:44 AM SAW CLEANER): Likely worsened by MTX which was stopped 01/2022. Recommend folic acid up to 3mg daily and biotin. Encouraged to discuss with her provider scribe as well. Primary insomnia 03/13/2022 Assessment & [...] 11/2021 Assessment & Plan (01/25/2023 9:31 AM SAW CLEANER): Hepatitis panel negative; 11/2021 TSPOT negative: 11/2021 Assessment & Plan (12/29/2022 11:51 AM SAW CLEANER): Hepatitis panel negative; 11/2021 TSPOT negative: 11/2021 [...] 11/2021 Assessment & Plan (03/24/2022 10:42 AM SAW CLEANER): Hepatitis panel negative; 11/2021 TSPOT negative: 11/2021 Assessment & Plan (01/20/2022 10:27 AM SAW CLEANER): Hepatitis panel negative; 11/2021 TSPOT negative: 11/2021 [...] and Naprosyn. Medrol Dosepaks are not a mcfp solution. As long as her kidney function [...] therapy at the pain management Center at [facility] Assessment & Plan (06/04/2021 12:51 [...] limited. Assessment & Plan (01/25/2023 9:32 AM SAW CLEANER): Previously diagnosed by PCP. C/o diffuse generalized pain. S/e to gabapentin and lyrica so will defer restarting. Recently restarted venlafaxine per PCP for anxiety. Remains on fluoxetine but was increased to 60mg daily per psych. Additional medication options are limited. Assessment & Plan (12/29/2022 11:50 AM SAW CLEANER): Previously diagnosed by PCP. C/o diffuse generalized [...] PCP. Assessment & Plan (03/24/2022 10:42 AM SAW CLEANER): Previously diagnosed by PCP. C/o diffuse generalized pain. S/e to gabapentin and lyrica so will defer restarting. Currently on venlafaxine and fluoxetine per PCP. Assessment & Plan (01/20/2022 10:27 AM SAW CLEANER): Previously diagnosed by PCP. C/o diffuse generalized [...] dizziness. Assessment & Plan (02/17/2021 8:28 PM SAW CLEANER): Add gabapentin at hs. Discussed increasing to 100mg bid over the coming week pending symptom improvement. Tremor 01/27/2021 Assessment & Plan (01/27/2021 9:30 AM SAW CLEANER): Advised ct of head, eeg, referral to neurology Advised labs today - will notify her of results as they are available Syncope 01/27/2021 Assessment & Plan (02/17/2021 8:26 PM SAW CLEANER): Has appt pending for cv that she will keep She will continue to not drive Assessment & Plan (01/27/2021 9:30 AM SAW CLEANER): Advised no driving, climbing, or swimming Advised ct of head, eeg, referral to neurology Advised labs today - will notify her of results as they are available Plantar fasciitis, bilateral 11/04/2020 Assessment & Plan (11/04/2020 2:16 PM CDT): Will continue with care per line assembly utility worker Thrombophlebitis of superfic ial veins of [...] 10/08/2020 Assessment & Plan (12/30/2020 8:38 PM SAW CLEANER): Decrease maxzide due to hyponatremia Repeat bmp in the next week Assessment & Plan (10/08/2020 6:08 PM CDT): Continue with care per ent We discussed as she has a current rx for valium that we cannot provide her with another at the current time. We discussed that if her ent discontinues writing it for her that pending review of [place] professor of art history we can further discuss a prescription. Paradoxical vocal fold motion disorder Assessment & Plan (09/12/2020 11:02 AM CDT): I have recommended laryngeal control therapy here at the [facility] in order [...] time Assessment & Plan (02/17/2021 8:25 PM SAW CLEANER): Stable, continue meds same at this time Assessment & Plan (12/30/2020 8:40 PM SAW CLEANER): Decrease prozac to 30mg daily Assessment & [...] needed. Assessment & Plan (12/30/2020 8:39 PM SAW CLEANER): Continue with care per GI Due to [...] hematology. Assessment & Plan (12/30/2020 8:40 PM SAW CLEANER): Has appt pending with heme/onc that she [...] this time. Will continue to follow-up with line assembly utility worker as planned. Anxiety 04/18/2020 Assessment & Plan (07/10/2022 6:53 PM CDT): As the patient's pain causes depression and depression worsens pain, she may benefit from speaking to a pain psychologist like 1 at the pain center at [facility]. Assessment & Plan (10/13/2021 12:47 PM CDT): Discontinue with xanax. Will restart valium bid/prn anxiety or dizziness. Assessment & Plan (06/04/2021 12:49 PM CDT): Will add a prn xanax as she has discontinued valium. Assessment & Plan (02/17/2021 8:28 PM SAW CLEANER): Resume prn valium, advised not taking more than 10mg daily. Advised potential for addictiveness with valium and additionally for sedation as a side effect. She was advised caution on driving after taking due to sedation potential. Assessment & Plan (04/18/2020 10:23 AM SAW CLEANER): Continue medication same at this time Rib pain on left side 04/18/2020 Assessment & Plan (04/18/2020 10:23 AM SAW CLEANER): We reviewed ct chest, abdominal us. She will continue to exercise 4x/week for 30min each session. Gastric polyp 04/18/2020 Assessment & Plan (04/18/2020 10:23 AM SAW CLEANER): Continue with care per gi Lipoma of torso 04/18/2020 Assessment & Plan (04/18/2020 10:23 AM SAW CLEANER): Will refer to gen surg to discuss further evaluation and treatment Abdominal pain 03/14/2020 Overview (03/14/2020): Added automatically from request for surgery [id number] Assessment & Plan (07/10/2022 6:50 PM CDT): [...] order and advised to take this to [facility] today. Change in bowel habits 03/14/2020 Overview (03/14/2020): Added automatically from request for surgery [id number] Assessment & Plan (04/02/2023 7:35 PM SAW CLEANER): The patient was recently treated with a number of antibiotics and Cosentyx. Even though Cosentyx was discontinued in January, there is an association with triggering a inflammatory bowel disease type condition. We would like to check stool studies including calprotectin to evaluate an infection or inflammatory cause of her symptoms. Hoarseness of voice 02/19/2020 Assessment & Plan (03/20/2020 11:27 AM SAW CLEANER): resolved Assessment & Plan (02/19/2020 12:54 PM SAW CLEANER): Will send for covid test today. Will notify her of results as available. Advised her in the interim to report to er if worsening. Will start on proventil hfa and change aciphex to dexilant. Positive depression screening 11/14/2019 Assessment & Plan (03/20/2020 11:26 AM SAW CLEANER): Continue with prozac. Will add buspar bid, discussed increasing pending response. Breast cyst, right 11/14/2019 Assessment & Plan (04/18/2020 10:22 AM SAW CLEANER): Due for repeat imaging in the next [...] 10/16/2019 Assessment & Plan (04/18/2020 10:22 AM SAW CLEANER): Advised high fiber heart healthy diet Assessment & Plan (10/16/2019 10:35 AM CDT): will continue with high fiber diet, decreased nuts/seeds followed by destination specialist History of right hip replacement 10/16/2019 H/O [...] available Assessment & Plan (03/24/2019 4:07 PM SAW CLEANER): Controlled Statin myopathy 02/28/2018 Pure hypercholesterolemia 06/21/2017 [...] PPI Assessment & Plan (04/18/2020 10:21 AM SAW CLEANER): We reviewed egd biopsy results. Will continue with care per gi. Assessment & Plan (03/20/2020 11:27 AM SAW CLEANER): Continue with care and testing per GI. Assessment & Plan (02/19/2020 12:54 PM SAW CLEANER): Will send for covid test today. Will [...] stimulator. Assessment & Plan (03/24/2022 10:43 AM SAW CLEANER): XR L-spine and MRI L-spine revealed multilevel [...] Plan (10/16/2019 10:34 AM CDT): Managed by account officer via [facility] Osteoarthritis of hip 03/13/2015 Resolved [...] provided Assessment & Plan (03/13/2022 8:16 AM SAW CLEANER): Obesity is unchanged. Discussed the patient's BMI. [...] provided Assessment & Plan (03/13/2022 8:16 AM SAW CLEANER): Obesity is unchanged. Discussed the patient's BMI. The BMI is above average. BMI management plan is completed. BMI Follow-up includes: nutrition counseling, exercise counseling and education provided. Rheumatoid arthritis involvi ng multiple sites with positive rheumatoid factor 03/13/2022 05/21/19 Obesity (BMI 30-39.9) 01/28/20222022 Assessment & Plan (01/28/2022 8:30 AM SAW CLEANER): Obesity is unchanged. Discussed the patient's BMI. The BMI is above average. BMI management plan is completed. BMI Follow-up includes: nutrition counseling, exercise counseling and education provided. BMI 30.0-30.9,adult 01/28/2022 03/13/19 23 Assessment & Plan (01/28/2022 8:30 AM SAW CLEANER): Obesity is unchanged. Discussed the patient's BMI. [...] and joint pain after starting Plavix following [place] s/p stent. Due to increased generalized pain [...] needed. Assessment & Plan (01/25/2023 9:31 AM SAW CLEANER): Previously isloated APRIL 1:160 on AVISE with [...] needed Assessment & Plan (12/29/2022 11:49 AM SAW CLEANER): Previously isloated APRIL 1:160 on AVISE with [...] well maintained on humira monotherapy however until [id number] when she noted onset of dry, itchy [...] needed. Assessment & Plan (03/24/2022 10:41 AM SAW CLEANER): Previously isloated APRIL 1:160 on AVISE with [...] psoriatic arthritis. Will continue humira 40mg SQ [id number]. Recent labs reviewed. Follow up in 4 months. Sooner if needed. Assessment & Plan (01/20/2022 10:29 AM SAW CLEANER): Previously isloated APRIL 1:160 on AVISE with [...] a spondyloarthropathy. Will continue humira 40mg SQ [id number] and give this more time to take [...] starting. Will start approval of Humira 40mg [id number]. Patient advised of the side effects of [...] Blankenship. Assessment & Plan (04/29/2021 5:04 PM SAW CLEANER): US right hand/wrist (04/21/21): Small grade 1 [...] Blankenship. Assessment & Plan (04/14/2021 5:31 PM SAW CLEANER): 70-year-old female with PMHx of FM, gout, [...] 08/20/2021 Assessment & Plan (01/27/2021 9:30 AM SAW CLEANER): Advised ct of head, referral to neurology Advised labs today - will notify her of results as they are available Acute cystitis without hematuria 12/17/2020 06/12/2021 Assessment & Plan (12/30/2020 8:40 PM SAW CLEANER): resolved Assessment & Plan (12/17/2020 11:07 AM [...] 08/21/19 Assessment & Plan (12/30/2020 8:38 PM SAW CLEANER): Obesity is unchanged. Discussed the patient's BMI. [...] 11/04/2020 Assessment & Plan (04/18/2020 10:22 AM SAW CLEANER): Resolved. We reviewed recent labs. Continue medication [...] planned Assessment & Plan (03/20/2020 11:26 AM SAW CLEANER): Continue with care and testing per GI. Retrieve CT from [facility]. Will evaluate further with abdominal US and labs. Hypokalemia 03/20/2020 11/04/2020 Assessment & Plan (08/29/2020 12:31 PM CDT): Seen on labs at [facility]. Repeat potassium level this week Assessment & Plan (04/18/2020 10:22 AM SAW CLEANER): Resolved. We reviewed recent labs. Continue medication same at this time. Assessment & Plan (03/20/2020 11:27 AM SAW CLEANER): Will reevaluate on labs. Discussed likely resolved as she has stopped the diazide. Cough 02/19/2020 08/20/2021 Assessment & Plan (03/20/2020 11:27 AM SAW CLEANER): resolved Assessment & Plan (02/19/2020 12:54 PM SAW CLEANER): Will send for covid test today. Will [...] 05/31/19 Assessment & Plan (02/17/2021 8:27 PM SAW CLEANER): Encouraged heart healthy diet and exercise Assessment & Plan (05/10/2020 8:33 AM CDT): Obesity is unchanged. Discussed the patient's BMI. The BMI is above average. BMI management plan is completed. BMI Follow-up includes: nutrition counseling, exercise counseling and education provided. Assessment & Plan (04/18/2020 7:47 AM SAW CLEANER): Obesity is unchanged. Discussed the patient's BMI. [...] constipation. Assessment & Plan (03/24/2019 4:08 PM SAW CLEANER): Improved with diet modification and as neededlaxatives Gastroesophageal reflux dise ase with esophagitis 07/26/2018 05/08/2021 Overview (07/26/2018): Added automatically from request for surgery [id number] Assessment & Plan (11/09/2019 7:29 PM CDT): Unfortunately Dexilant remains a plan exclusion. She can try and get this through [facility]. Alternatively we could offer her Carafate in conjunction with AcipHex. Assessment & Plan (10/16/2019 10:34 AM CDT): Managed by gastroenterology Assessment & Plan (03/24/2019 4:07 PM SAW CLEANER): Patient's symptoms her currently manageable with every [...] Type Department Care Team Description 09/13/2024 Telephone [facility] Orthopaedic Surgery [address] 1[address] [place] [address] Mario Aj MD 09/08/2024 Telephone [facility] [address] [place] [phone] Ml Queen 08/30/2024 Results Follow-Up [facility] [address] [place] [phone] Tashia Kirk PA CBC with auto differential, Comprehensive metabolic panel, CRP (acute phase), Erythrocyte sedimentation rate 08/29/2024 10:00 AM CDT Office Visit [facility] [address] [place] [phone] Tashia Kirk PA Polyarthralgia (Primary Dx); Fibromyalgia; neurophysiologist current use of therapeutic drug 08/21/2024 Telephone [facility] Orthopaedic Surgery [address] [facility] [address] [place] [phone] Francine Isaac LPN 08/18/2024 9:15 AM CDT - 08/18/2024 11:59 PM CDT Hospital Encounter [facility] [address] [facility] [address] [place] [phone] Nilesh Dos Santos MD Chronic sacroiliac joint pain Discharge Disposition: Discharge to home or self care 08/15/2024 Telephone Radiology - [address] [place] [address] Radha Fox, 08/15/2024 Results Follow-Up [facility] Dermatology [facility] [facility] [address] [place] [address] Jelly Rodríguez MD Surgical pathology 08/11/2024 10:45 AM CDT Office Visit [facility] Dermatology [address] [facility] [address] [place] [address] Jelly Rodríguez MD Seborrheic keratosis (Primary Dx); Neoplasm of skin; Carey angioma; Lentigines; Multiple benign nevi 08/11/2024 Orders Only [facility] OUT[facility]ACH [address] [place] [address] Jelly Rodríguez MD Neoplasm of skin 08/10/2024 Orders Only [facility] [address] [place] [phone] Tashia Kirk PA 08/10/2024 Telephone [facility] [address] [place] [phone] Ml Queen Flare 08/04/2024 Results Follow-Up [facility] [address] [place] [phone] Tashia Kirk PA Comprehensive metabolic panel, CBC with auto differential, Erythrocyte sedimentation rate, Additional followed-up results: 2 08/03/2024 Results Follow-Up [facility] Cardiology [address] [facility] [address] [place] [address] Sergei Richards MD SCAN - RADIOLOGY/IMAGING 08/02/2024 Orders Only [facility] Family Medicine [address] [place] [address] Kota Long MD 08/01/2024 Orders Only [facility] Internal Medicine at [place] [address] [place] [phone] Kota Long MD 07/29/2024 Orders Only [facility] Health Information Management [address] [place] [address] Sergei Richards MD 07/28/2024 11:15 AM CDT Office Visit [facility] [address] [place] [phone] Tashia Kirk PA Polyarthralgia (Primary Dx); Fibromyalgia; Pain of right hand; group home current use of therapeutic drug 07/28/2024 Orders Only [facility] Orthopaedic Surgery [address] [facility] [address] [place] [address] Nilesh Dos Santos MD Primary osteoarthritis of left hip (Primary Dx); Left hip pain 07/28/2024 Telephone [facility] Cardiology [address] [place] [address] [address] [place] [phone] eSrgei Richards MD 07/28/2024 Telephone [facility] Orthopaedic Surgery [address] [facility] 2[address] Floor [address] [place] [address] Tri Cheng CMA Offer Sooner Appointment 07/11/2024 Orders Only [facility] Orthopaedic Surgery [address] [facility] [address] [place] [address] Nilesh Dos Santos MD Chronic sacroiliac joint pain (Primary Dx) 06/29/2024 Telephone [facility] Cardiology [address] [place] [address] [address] [place] [address] Sergei Richards MD 06/24/2024 Orders Only [facility] Health Information Management [address] [place] [address] Sergei Richards MD from Last 3 Months [...] ed with meds Palpitations Fibromyalgia possibly-to see First Leveler PFO (patent foramen ovale) Low back pain [...] on file Legal Sex Female 5:33 AM SAW CLEANER Gender Identity Not on file Sexual Orientation [...] CDT Respiratory Rate 20 04/25/2024 8:41 AM SAW CLEANER Oxygen Saturation 95% 08/29/2024 10:05 AM CDT [...] 65+ Discontinued Medical Devices Implanted Type Area Pegger Dobby Looms Device Identifier Shelf Expiration Date Model / Serial / Lot R-Hip 2014 Right: Hip Procedures Procedure Name Priority Date/Time Associated Diagnosis Comments ERYTHROCYTE SEDIMENTATION RATE Routine 08/29/2024 10:21 AM CDT Polyarthralgia group home current use of therapeutic drug CRP (ACUTE PHASE) Routine 08/29/2024 10: 21 AM CDT Polyarthralgia group home current use of therapeutic drug COMPREHENSIVE METABOLIC PANEL Routine 08/29/2024 10:21 AM CDT Polyarthralgia group home current use of therapeutic drug CBC WITH AUTO DIFFERENTIAL Routine 08/29/2024 10:21 AM CDT Polyarthralgia group home current use of therapeutic drug IR INJECTION SI JOINT LEFT WITH GUIDANCE Schedule Routine, Read Routine (OP Routine) 08/18/2024 10:40 AM CDT Chronic sacroiliac joint pain SURGICAL PATHOLOGY Routine 08/11/2024 12 :00 AM CDT Neoplasm of skin LOWER EXTREMITY VENOUS DOPPLER Schedule Routine, Read Routine (OP Routine) 07/29/2024 10:46 AM CDT SCAN - RADIOLOGY/IMAGING 07/29/2024 TPMT ACTIVITY Routine 07/28/2024 11:31 AM CDT Polyarthralgia neurophysiologist current use of therapeutic drug CRP (ACUTE PHASE) Routine 07/28/2024 11: 31 AM CDT Polyarthralgia ERYTHROCYTE SEDIMENTATION RATE Routine 07/28/2024 11:31 AM CDT Polyarthralgia CBC WITH AUTO DIFFERENTIAL Routine 07/28/2024 11:31 AM CDT Polyarthralgia group home current use of therapeutic drug COMPREHENSIVE METABOLIC PANEL Routine 07/28/2024 11:31 AM CDT Polyarthralgia group home current use of therapeutic drug SCAN - LABS 07/28/2024 DEXA AXIAL SKELETON BONE DENSITY 1 OR MORE SITES Schedule Routine, Read Routine (OP Routine) 07/25/2024 3:53 PM CDT Post-menopausal SCAN - RADIOLOGY/IMAGING 06/24/2024 DIAGNOSTIC MAMMOGRAM Schedule Routine, Read Routine (OP Routine) 11/05/2023 3:39 PM CDT HEPATITIS PANEL, ACUTE Routine 12/22/2021 11:17 AM CDT Fatigue, unspecified type COLONOSCOPY 03/25/2020 1:48 PM SAW CLEANER from Last 3 Months or Most Recently Relevant to Health Maintenance Results * (ABNORMAL) CBC with auto differential (08/29/2024 10:21 AM CDT) Pathologist [facility] WBC 8.6 3.8 - 10.8 Thousand/u L [...] BLOOD ORDERABLES Final Result Performing Organization Address City/[facility]/ZIP Co de Phone Number QUEST [facility] [address] [place] [address] * (ABNORMAL) Erythrocyte sedimentation rate (08/29/2024 10:21 AM CDT) Pathologist [facility] Erythrocyte sedimentation rate 38(H) < OR = 30 mm/h [facility] Blood 08/29/2024 10:2 1 AM CDT 08/29/2024 10:21 AM CDT Tashia Annamaria GRAHAM LAB BLOOD ORDERABLES Final Result Performing Organization Address City/[facility]/ZIP Co de Phone Number QUEST [facility] [address] [place] [address] * CRP (acute phase) (08/29/2024 10:21 AM CDT) C-RP <3.0 <8.0 mg/L [facility] Blood 08/29/2024 10:2 1 AM CDT 08/29/2024 10:21 AM CDT Tashia GRAHAM LAB BLOOD ORDERABLES Final Result [facility] [address] [address] * (ABNORMAL) Comprehensive metabolic panel (08/29/2024 10:21 AM CDT) Pathologist [facility] Glucose 80 65 - 99 mg/dL [facility] [...] BLOOD ORDERABLES Final Result Performing Organization Address City/[facility]/ZIP Co de Phone Number [facility] [address] [address] [place] [address] * IR Injection SI Joint Left with Guidance (08/18/2024 10:40 AM CDT) Narrative RAD_PACS[facility] - 08/18/2024 10:40 AM CDT The images from this study are not interpreted by Radiology. Please refer to the physician's procedure / OR operative note. Nilesh Dos Santos MD IMG IR PROCEDURES Final Re sult Performing Organization Address [facility] Co de Phone Number [email or web address] * Surgical pathology (08/11/2024 12:00 AM CDT) Tissue (Skin, shave biopsy) 08/11/2024 08/11/2024 12:56 PM CDT Narrative [facility] - 08/15/2024 3:06 PM CDT EPIC results best viewed via link to PDF [facility] Dermatopathology [facility], [address], [place] [address] [email or web address] Note to Patients: This report [...] 08/15/2024 Submitting Physician Information: Jelly Rodríguez M.D. [address] [place] [address], [address] [place] [address], DERMATOPATHOLOGY REPORT RESULTS DIAGNOSIS: SKIN, LEFT FOREARM, [...] cr/tyc ICD-9 A; ZSD.808 Clerical Data A; 30249 The characteristics of special, immunohistochemical, and immunofluorescence stains and in-situ hybridization tests performed by the [facility] were deemed acceptable in ongoing software quality automation engineer measures and in compliance with regulations drawn from the Clinical Laboratory Improvement Act nq8583 (CLIA '88). Control reactions for all stains performed were deemed adequate and appropriate by a pathologist prior to evaluation of patient tissue. Some diagnoses were rendered with the assistance of laboratory-developed tests utilizing analyte-specific reagents; the performance characteristic of these tests were determined by [facility] and are not cleared or approved by the [place] Food an Drug administration. Laboratory developed test may only be performed in a facility that is certified by the [facility] as a high-complexity laboratory under CLIA '88. These tests are used for clinical purposes and are not investigational. Jelly Rodríguez MD LAB PATHOLOGY ORDERABLES Final Result Performing Organization Address [facility]/ZIP Co de Phone Number DERMATOPATHOLOGY CENTER [facility] [place] [address] * LOWER EXTREMITY VENOUS DOPPLER (07/29/2024 10:46 AM CDT) Anatomical Region Laterality Modality N/A Ultrasound Historical Provider MD GUO US PROCEDURES Final R esult * SCAN - RADIOLOGY/IMAGING (07/29/2024) Anatomical Region Laterality Modality Other Sregei Antoinea l Result * TPMT activity profile, RBC (07/28/2024 11:31 AM CDT) Pathologist [facility] TPMT activity 13 nmol/hr/mL RBC [facility], Comment: Reference Range for TPMT Activity: >12 Normal 4-12 Heterozygote or low metabolizer <4 Homozygote Deficient Range This test was developed and its analytical performance characteristics have been determined by [facility]. It has not been cleared or approved by the FDA. This assay has been validated pursuant to the CLIA regulations and is used for clinical purposes. Blood 07/28/2024 11:3 1 AM CDT 07/28/2024 11:31 AM CDT Tashia GRAHAM LAB BLOOD ORDERABLES Final Result Performing Organization Address [facility]/ZIP Co de Phone Number QUEST [facility], [address] [place] [address] * (ABNORMAL) CBC with auto differential (07/28/2024 [...] LAB BLOOD ORDERABLES Final Result QUEST [facility] [address] [address] * (ABNORMAL) Erythrocyte sedimentation rate (07/28/2024 11:31 AM CDT) Pathologist [facility] Erythrocyte sedimentation rate 41(H) < OR = 30 mm/h [facility] Blood 07/28/2024 11:3 1 AM CDT 07/28/2024 11:31 AM CDT Tashia GRAHAM LAB BLOOD ORDERABLES Final Result Performing Organization Address [facility] Co de Phone Number QUEST [facility] [address] [place] [address] * CRP (acute phase) (07/28/2024 11:31 AM CDT) C-RP 6.4 <8.0 mg/L [facility] Blood 07/28/2024 11:3 1 AM CDT 07/28/2024 11:31 AM CDT Tashia GRAHAM LAB BLOOD ORDERABLES Final Result Performing Organization Address [facility] de Phone Number QUEST [facility] [address] [place] [address] * (ABNORMAL) Comprehensive metabolic panel (07/28/2024 11:31 [...] AM CDT 07/28/2024 11:31 AM CDT Result [facility] Tashia GRAHAM LAB BLOOD ORDERABLES Final Result QUEST [facility] [address] [place] [address] * SCAN - LABS (07/28/2024) Anjelica Huntley NP Final Result * (ABNORMAL) Dexa Axial Skeleton Bone Density 1 or 2 Site (07/25/2024 3:53 PM CDT) SCRIBED DXA T-SCORE 2.5 Anatomical Region Laterality Modality Body N/A Radiographic Tram ging Anjelica Huntley RETANNER IMG DXA PROCEDURES Final Resu lt * SCAN - RADIOLOGY/IMAGING (06/24/2024) Anatomical Region Laterality Modality Other Result [facility] Sergei adams Result * Diagnostic Mammogram (11/05/2023 3:39 PM CDT) Anatomical Region Laterality Modality Breast Mammography Historical Provider MD GUO MAMMO PROCEDURES Ca adams Result * Hepatitis panel, acute (12/22/2021 11:17 AM CDT) Hep A IgM NON-REACTI VE NON-REACT JUSTICE [facility] Comment: For additional information, please refer to http://[facility].I-frontdesk/faq/DYF969 (This link is being provided for informational/ [...] a test for HCV RNA (test code 89775) is suggested. For additional information please refer to http://[facility].I-frontdesk/faq/EWR05j4 (This link is being provided for informational/ educational purposes only.) Blood 12/22/2021 11:1 7 AM CDT 12/22/2021 11:18 AM CDT Tashia GRAHAM LAB MICROBIOLOGY - GE NERAL ORDERABLES Final Result [facility] [address] [address] * COLONOSCOPY (03/25/2020 1:48 PM SAW CLEANER) Anatomical Region Laterality Modality Other Narrative Procedure Note Joseph Guillaume MD PhD - 03/25/2020 1:48 PM CST ENDOSCOPY LAB Patient Name: Maggi De Leon Procedure Date: 03/25/2020 1:48 PM Date of : 1950 Admit Type: Outpatient Age: 69 Gender: Female Attending MD: Joseph Guillaume MD,PHD Room: [facility] ENDOSCOPY ROOM 03 Note Status: [...] The scope was passed under direct vision.The [id number] was introduced through the anuswith the intention of advancing to the ileum. The scopewas advanced to the sigmoid colon before the procedurewas aborted. Medications were given. The scope waspassed under direct vision. The [id number] was introduced through the anus and advanced [...] During normal business hours - Please call [place] Coordinator: [phone]. After hours, evening, nights, weekends and holidays- Please call the hospital gravure press operator at and ask for the GI fellow pony rougher. Attending Participation: I personally performed the entire procedure. Electronically signed by Joseph Guillaume MD. Joseph Guillaume MD, PHD 03/25/2020 2:32:06 PM Number of Addenda: 0 Note Initiated On: 03/25/2020 1:48 PM Joseph Guillaume MD PhD ENDOSCOPY PROCEDURES Ca l Result from Last 3 Months or Most Recently Relevant to Health Maintenance Insurance MEDICARE FOR LIFE MEDICARE FOR LIFE MEDICARE [facility] Address: [address] [address] [place] [address] FOR LIFE FOR LIFE MEDICARE Advance Directives For more information, please contact: [phone] * Full Code (Latest Code Status on File) Date Activated Date Inactivated Comments 03/25/2020 11:54 AM 03/25/2020 7:31 PM * Full Code Date Activated Date Inactivated Comments 08/04/2018 10:36 AM 08/04/2018 5:07 PM Care Teams Welding Machine Operator Gas Relationship Specialty Start Date End Date Anjelica Huntley, RETANNER [address] [place] [address] PCP - General Internal Medicine 06/10/22 Buzz Blankenship MD [address] [place] [address] Consulting Physician Rheumatology 04/14/21
--- OUTSIDE RECORDS SUMMARY | 2024-09-15 18:24 | XMS_ITS | Encounter Summary ---
Author Organization [facility] Address [address] [place] [address] Phone Care Team Providers Care Retail Commission Sales Associate Name Role Phone Era Espinoza MD Primary Care Provider + [phone] Era Espinoza MD Primary Care Provider + [phone] Unknown, Notinfile Primary Care Provider Unavail Annamaria Farooq Primary Care Provider [phone] Buzz Blankenship MD Unavailable Anjelica Huntley NP Primary Care Provider [phone] Anjelica Huntley NP Primary Care Provider [phone] Encounter Details Date Type Department Care Team [...] on file Legal Sex Female 5:33 AM MONTESSORI TODDLER TEACHER Gender Identity Not on file Sexual Orientation [...] COVID: Suspected 02/19/2020 02/19/2020 02/19/2020 12:10 PM MONTESSORI TODDLER TEACHER COVID: Suspected 02/19/2020 02/19/2020 02/21/2020 2:47 PM MONTESSORI TODDLER TEACHER Respiratory Infection (RANDAL), contact + droplet Comment:Automatically added due to negative COVID-19 result. 02/21/2020 02/21/2020 03/06/2020 3:0 7 AM MONTESSORI TODDLER TEACHER Diarrhea 03/30/2023 03/30/2023 04/13/2023 3:06 AM MONTESSORI TODDLER TEACHER documented as of this encounter Care Teams Retail Commission Sales Associate Relationship Specialty Start Date End Date Era Espinoza MD PCP - General Family Practice 11/22/17 03/07/19 Era Espinoza MD PCP - General Family Practice 03/08/19 10/10/19 Unknown, Notinfile PCP - General 10/11/19 10/15/19 Annamaria Bates PA PCP - General Firer Marine 10/16/19 12/01/21 Anjelica Huntley, AVIONICS TECHNICIAN [address] [place] [address] PCP - General Internal Medicine 12/02/21 06/09/22 Anjelica Huntley AVIONICS TECHNICIAN [address] [facility] [address] [place] [address] PCP - General Internal Medicine 06/10/22 Buzz Blankenship MD [address] [place] [address] Consulting Physician Rheumatology 04/14/21 documented as of this encounter
--- OUTSIDE RECORDS SUMMARY | 2024-09-15 18:24 | XMS_ITS | Encounter Summary ---
Author Organization [facility] Address [address] [place] [address] Care Team Providers Care Apigee Developer Name Role Phone Buzz Blankenship MD Unavailable [phone] Anjelica Huntley NP Primary Care Provider [phone] Encounter Details Date Type Department Care Team (Late st Contact Info) Description 2022 Telephone [facility] Radiology [address] [place] [address] Emili Goode, RT Social History Tobacco [...] on file Legal Sex Female 5:33 AM FURNACE TENDER Gender Identity Not on file Sexual [...] Time Diarrhea 03/30/2023 03/30/2023 04/13/2023 3:06 AM FURNACE TENDER documented as of this encounter Care Teams Apigee Developer Relationship Specialty Start Date End Date Anjelica Huntley NP [address] [facility] [address] [place] [address] PCP - General Internal Medicine 06/10/22 Buzz Blankenship MD [address] [facility] [address] [place] [address] Consulting Physician Rheumatology 04/14/21 documented as of this encounter
--- OUTSIDE RECORDS SUMMARY | 2024-09-15 18:24 | XMS_ITS | Encounter Summary ---
Author Organization [facility] Address [address] [place] [address] Phone Care Team Providers Care Torch Straightener And Heater Name Role Phone Buzz Blankenship MD Unavailable [phone] Anjelica Huntley NP Primary Care Provider [phone] Encounter Details Date Type Department Care Team (Late st Contact Info) Description 09/13/2024 Telephone [facility] [address] [place] [address] Mario Aj MD [address] [facility] [address] [place] [address] Social History Tobacco Use Types Packs/Day Years [...] on file Legal Sex Female 5:33 AM AWNING MAKER Gender Identity Not on file Sexual Orientation Not on file Occupation Industry Job Start Date Job End Date Retired Not on file Not on file Not on file documented as of this encounter Miscellaneous Notes * Telephone Encounter - Marva Dimas RMA - 09/15/2024 3:34 PM CDT Called patient and left vm to call the office back. * Telephone Encounter - Scot Fox MD - 09/14/2024 7:36 PM CDT Did the injection provide her with significant improvement in her pain? Also we would typically want to wait until 6 months after the injection before repeating with the gel. * Telephone Encounter - Marva Dimas RMA - 09/13/2024 1:51 PM CDT Patient called and left vm requesting an appointment for repeat synvisc injection. documented in this encounter Plan of Treatment Not on file documented as of this encounter Visit Diagnoses Not on filedocumented in this encounter Care Teams Torch Straightener And Heater Relationship Specialty Start Date End Date Anjelica Huntley NP [address] [place] [address] PCP - General Internal Medicine 06/10/22 Buzz Blankenship MD [address] [place] [address] Consulting Physician Rheumatology 04/14/21 documented as of this encounter
--- OUTSIDE RECORDS SUMMARY | 2024-09-15 18:24 | XMS_ITS | Encounter Summary ---
Author Organization [facility] Address [address] [place] [address] Phone Care Team Providers Care Slackline Operator Name Role Phone Era Espinoza MD Primary Care Provider + [phone] Era Espinoza MD Primary Care Provider + [phone] Unknown, Notinfile Primary Care Provider Unavail Annamaria Farooq Primary Care Provider [phone] Buzz Blankenship MD Unavailable [phone] Anjelica Huntley NP Primary Care Provider [phone] Anjelica Huntley NP Primary Care Provider [phone] Encounter Details Date Type Department Care Team [...] on file Legal Sex Female 5:33 AM UPHOLSTERY TRIMMER Gender Identity Not on file Sexual Orientation [...] COVID: Suspected 02/19/2020 02/19/2020 02/19/2020 12:10 PM UPHOLSTERY TRIMMER COVID: Suspected 02/19/2020 02/19/2020 02/21/2020 2:47 PM UPHOLSTERY TRIMMER Respiratory Infection (RANDAL), contact + droplet Comment:Automatically added due to negative COVID-19 result. 02/21/2020 02/21/2020 03/06/2020 3:0 7 AM UPHOLSTERY TRIMMER Diarrhea 03/30/2023 03/30/2023 04/13/2023 3:06 AM UPHOLSTERY TRIMMER documented as of this encounter Care Teams Slackline Operator Relationship Specialty Start Date End Date Era Espinoza MD PCP - General Family Practice 11/22/17 03/07/19 Era Espinoza MD PCP - General Family Practice 03/08/19 10/10/19 Unknown, Notinfile PCP - General 10/11/19 10/15/19 Annamaria Bates PA PCP - General Pastry Finisher 10/16/19 12/01/21 Anjelica Huntley, KERRICK KLEANER OPERATOR [address] [place] [address] PCP - General Internal Medicine 12/02/21 06/09/22 Anjelica Huntley KERRICK KLEANER OPERATOR [address] [facility] [address] [place] [address] PCP - General Internal Medicine 06/10/22 Buzz Blankenship MD [address] [place] [address] Consulting Physician Rheumatology 04/14/21 documented as of this encounter
--- OUTSIDE RECORDS SUMMARY | 2024-09-15 18:24 | XMS_ITS | Encounter Summary ---
Author Organization [facility] Address [address] [place] [address] Phone Care Team Providers Care Structural Manager Name Role Phone Buzz Blankenship MD Unavailable [phone] Anjelica Huntley NP Primary Care Provider [phone] Encounter Details Date Type Department Care Team (Late st Contact Info) Description 08/15/2024 Results Follow-Up [facility] Dermatology [address] [facility] [address] [place] [address] Jelly Rodríguez MD [address] [facility] [address] [address] Surgical pathology Social History Tobacco Use [...] on file Legal Sex Female 5:33 AM CLOTH DYEING RANGE TENDER Gender Identity Not on file Sexual Orientation Not on file Occupation Industry Job Start Date Job End Date Retired Not on file Not on file Not on file documented as of this encounter Plan of Treatment Not on file documented as of this encounter Visit Diagnoses Not on filedocumented in this encounter Care Teams Structural Manager Relationship Specialty Start Date End Date Anjelica Huntley NP [address] [place] [address] PCP - General Internal Medicine 06/10/22 Buzz Blankenship MD [address] [place] [address] Consulting Physician Rheumatology 04/14/21 documented as of this encounter
--- OUTSIDE RECORDS SUMMARY | 2024-09-15 18:24 | XMS_ITS | Encounter Summary ---
Author Organization [facility] Address [address] [place] [address] Phone Care Team Providers Care Pumper Gager Name Role Phone Buzz Blankenship MD Unavailable [phone] Anjelica Huntley NP Primary Care Provider [phone] Encounter Details Date Type Department Care Team (Latest Contact Info) Description 08/30/2024 Results Follow-Up [facility] [address] [place] [address] Tashia Kirk PA [address] [place] [address] CBC with auto differential, Comprehensive [...] on file Legal Sex Female 5:33 AM RESEARCH LAB ASSISTANT Gender Identity Not on file Sexual Orientation Not on file Occupation Industry Job Start Date Job End Date Retired Not on file Not on file Not on file documented as of this encounter Plan of Treatment Not on file documented as of this encounter Visit Diagnoses Not on filedocumented in this encounter Care Teams Pumper Gager Relationship Specialty Start Date End Date Anjelica Huntley CLOTH HAULER [address] [place] [address] PCP - General Internal Medicine 06/10/22 Buzz Blankenship MD [address] [place] [address] Consulting Physician Rheumatology 04/14/21 documented as of this encounter
--- OUTSIDE RECORDS SUMMARY | 2024-09-15 18:24 | XMS_ITS | Continuity of Care Document ---
Author Organization [facility] Address [address] [place] [address] Phone Care Team Providers Care Urologist Name Role Phone Navid Srivastava MD Unavailable Unavailable Procedures Procedure Date Post-op Follow-up Visit Post-op Follow-up Visit After Cataract Laser Surgery Eye Exam & Treatment Corneal Pachymetry Advance Directives Directive Yes / No Effective Date File Name No Information Encounters Encounter Description Practice Location Reason(s) For Visit Diagnoses Date Provider Providers Copied on Encounter [facility], [address] [place] [address] [address], [place], [place], [id number], tel:[phone] SEC David DALJIT Professional No Information 1 Atif Shoemaker. [address] [facility] [place], [id number], [place]. tel:[phone] Referring Provider: Navid Brown [address] [facility] [address], [place], [address] . tel:[phone] [facility], [address], [place], [place], [id number], tel:[phone] SEC David DALJIT Professional No Information 1 Atif Shoemaker. [address] [employer], [facility] [place], [place], [id number], [place]. tel:[phone] Referring Provider: Navid Brown, [address] [facility] [place], [address] . tel:[phone] [facility], [address] [facility] [address], [place], [place], [id number], tel:[phone] SEC Dendron [place] Professional No Information Oct 3-201 1 Atif Shoemaker. [address] [facility], [facility] [place], [id number], . tel:[phone] Referring Provider: Navid Brown, [address] [facility] [place], [address] . tel:[phone] [facility], [address], [place], [place], [id number], tel:[phone] SEC David [place] Professional No Information Oct-2 0-201 1 Atif Shoemaker. [address] [facility], [facility] [place], [id number], . tel:[phone] Referring Provider: Navid Brown, [address] [facility] [place], [address] . tel:[phone] Family History Family Member Type Diagnosis Age At Onset No Information Payers Payer name Insurance type Covered libertarian ID Authoriza tion(s) No Information Social History [...]
--- OUTSIDE RECORDS SUMMARY | 2024-09-15 18:24 | XMS_ITS | Encounter Summary ---
Author Organization [facility] Address [address] [place] [address] Phone Care Team Providers Care Electrical Maintenance Engineer Name Role Phone Era Espinoza MD Primary Care Provider + [phone] Era Espinoza MD Primary Care Provider + [phone] Unknown, Notinfile Primary Care Provider Unavail Annamaria Farooq Primary Care Provider [phone] Buzz Blankenship MD Unavailable [phone] Anjelica Huntley NP Primary Care Provider [phone] Anjelica Huntley WIRE STOCKKEEPER Primary Care Provider [phone] Encounter Details Date Type Department Care Team [...] on file Legal Sex Female 5:33 AM ASSISTANT CHIEF TRAIN DISPATCHER Gender Identity Not on file Sexual Orientation [...] COVID: Suspected 02/19/2020 02/19/2020 02/19/2020 12:10 PM ASSISTANT CHIEF TRAIN DISPATCHER COVID: Suspected 02/19/2020 02/19/2020 02/21/2020 2:47 PM ASSISTANT CHIEF TRAIN DISPATCHER Respiratory Infection (RANDAL), contact + droplet Comment:Automatically added due to negative COVID-19 result. 02/21/2020 02/21/2020 03/06/2020 3:0 7 AM ASSISTANT CHIEF TRAIN DISPATCHER Diarrhea 03/30/2023 03/30/2023 04/13/2023 3:06 AM ASSISTANT CHIEF TRAIN DISPATCHER documented as of this encounter Care Teams Electrical Maintenance Engineer Relationship Specialty Start Date End Date Era Espinoza MD PCP - General Family Practice 11/22/17 03/07/19 Era Espinoza MD PCP - General Family Practice 03/08/19 10/10/19 Unknown, Notinfile PCP - General 10/11/19 10/15/19 Annamaria Bates PA PCP - General Traffic Workforce Representative 10/16/19 12/01/21 Anjelica Huntley WIRE STOCKKEEPER [address] [place] [address] PCP - General Internal Medicine 12/02/21 06/09/22 Anjelica Huntley WIRE STOCKKEEPER [address] [place] [address] PCP - General Internal Medicine 06/10/22 Buzz Blankenship MD [address] [place] [address] Consulting Physician Rheumatology 04/14/21 documented as of this encounter
--- OUTSIDE RECORDS SUMMARY | 2024-09-15 18:24 | XMS_ITS | Referral Summary ---
Author Organization [facility] Address [address] [place] [address] Care Team Providers Care Supersonic Engineer Name Role Phone Buzz Blankenship MD Unavailable [phone] Anjelica Huntley NP Primary Care Provider [phone] Encounters Date Type Department Care Team Description 09/13/[address] [facility] Orth[facility] [address] [place] [address] 1st Floor [address] [place] [address] Mario Aj MD 09/08/2024 Telephone [facility] [address] [place] [phone] Ml Queen 08/30/2024 Results Follow-Up [facility] [address] [place] [phone] Tashia Kirk PA CBC with auto differential, Comprehensive metabolic panel, CRP (acute phase), Erythrocyte sedimentation rate 08/29/2024 10:00 AM CDT Office Visit [facility] [address] [place] [address] Tashia Kirk PA Polyarthralgia (Primary Dx); Fibromyalgia; prison current use of therapeutic drug 08/21/[address] [facility] [address] [facility] Medical Office Building [address] [place] [phone] Francine Isaac LPN 08/18/2024 9:15 AM CDT - 08/18/2024 11:59 PM CDT Hospital Encounter [facility] [address] [facility] [address] [place] [phone] Nilesh Dos Santos MD Chronic sacroiliac joint pain Discharge Disposition: Discharge to home or self care 08/15/2024 Telephone Radiology - 969 Ortho [address] [facility] [address] [place] [address] Radha Fox, 08/15/2024 Results Follow-Up [facility] [address] [place] [phone] Jelly Rodríguez MD Surgical pathology 08/11/2024 Orders Only [facility] [address] [place] [address] Jelly Rodríguez MD Neoplasm of skin 08/11/2024 10:45 AM CDT Office Visit [facility] [address] [place] [phone] Jelly Rodríguez MD Seborrheic keratosis (Primary Dx); Neoplasm of skin; Carey angioma; Lentigines; Multiple benign nevi 08/10/2024 Orders Only [facility] [address] [place] [phone] Tashia Kirk PA 08/10/2024 Telephone [facility] [address] [place] [address] Ml Quene Flare 08/04/2024 Results Follow-Up [facility] [address] [place] [phone] Tashia Kirk PA Comprehensive metabolic panel, CBC with auto differential, Erythrocyte sedimentation rate, Additional followed-up results: 2 08/03/2024 Results Follow-Up [facility] Cardiology [address] [facility] [address] [place] [address] Sergei Richards MD SCAN - RADIOLOGY/IMAGING 08/02/2024 Orders Only [facility] Family Medicine [address] [place] [address] Kota Long MD 08/01/2024 Orders Only [facility] Internal Medicine at [place] [address] [place] [address] [address] [place] [phone] Kota Long MD 07/29/[address] [facility] [address] [place] [phone] Sergei Richards MD 07/28/2024 Orders Only [facility] Orth[facility] [address] [facility] Office Building [address] [place] [phone] Nilesh Dos Santos MD Primary osteoarthritis of left hip (Primary Dx); Left hip pain 07/28/2024 Telephone [facility] Cardiology [address] [place] [address] [place] [phone] Sergei Richards MD 07/28/[address] [facility] Orthopa[facility] Surgery [address] [facility] 2nd Floor [address] [place] [phone] Tri Cheng CMA Offer Sooner Appointment 07/28/2024 11:15 AM CDT Office Visit [facility] [address] [place] [address] Tashia Kirk PA Polyarthralgia (Primary Dx); Fibromyalgia; Pain of right hand; prison current use of therapeutic drug 07/11/2024 Orders Only [facility] [address] [facility] Office [facility] [address] [place] [phone] Nilesh Dos Santos MD Chronic sacroiliac joint pain (Primary Dx) 06/29/2024 Telephone [facility] Cardiology [address] [place] [address] [address] [place] [phone] Sergei Richards MD 06/24/[address] [facility] Information Management [address] [place] [phone] Sergei Richards MD from Last 3 Months Allergies Active Allergy Reactions Criticality Noted Date Comments Bempedoic Acid Other (See comments) Low 11/29/2023 Muscle ache Hydrochlorothiazide Other (See comments) Low 04/20/2012 Hydrocodone Nausea & Vomiting,Dizziness ,Headache,Vomiting Low 05/26/2011 Pregabalin Other (See comments),Agitatio n Low 10/13/2021 Blurred vision Pain Medicine Vomiting Low 07/24/2019 Penicillins Swelling Medium 03/13/2015 Lehnnqp-Edh-Juh Reductase Inhibitors Muscle pain Medium 03/21/2021 Medications [...] Dysuria 03/16/2023 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 Will defer restarting [...] 03/24/2022 Assessment & Plan (03/24/2022 10:44 AM LINE ORDERING CLINICIAN): Likely worsened by MTX which was stopped 01/2022. Recommend folic acid up to 3mg daily and biotin. Encouraged to discuss with her test and turn up technician as well. Primary insomnia 03/13/2022 Assessment & Plan (09/29/2023 9:19 AM CDT): This is a significant, separately identifiable problem that was evaluated and managed on the same day as the wellness exam Dyspnea on exertion 02/04/2022 Overview (02/04/2022): Patient O2 sat is 98%. She does complain of slight chest pressure and shortness of breath. Patient referred to the emergency department for further evaluation prison current use of therapeutic drug 2021 Overview [...] 11/2021 Assessment & Plan (01/25/2023 9:31 AM LINE ORDERING CLINICIAN): Hepatitis panel negative; 11/2021 TSPOT negative: 11/2021 Assessment & Plan (12/29/2022 11:51 AM LINE ORDERING CLINICIAN): Hepatitis panel negative; 11/2021 TSPOT negative: 11/2021 [...] 11/2021 Assessment & Plan (03/24/2022 10:42 AM LINE ORDERING CLINICIAN): Hepatitis panel negative; 11/2021 TSPOT negative: 11/2021 Assessment & Plan (01/20/2022 10:27 AM LINE ORDERING CLINICIAN): Hepatitis panel negative; 11/2021 TSPOT negative: 11/2021 [...] and Naprosyn. Medrol Dosepaks are not a chcf solution. As long as her kidney function [...] therapy at the pain management Center at [facility] Assessment & Plan (06/04/2021 12:51 PM [...] limited. Assessment & Plan (01/25/2023 9:32 AM LINE ORDERING CLINICIAN): Previously diagnosed by PCP. C/o diffuse generalized pain. S/e to gabapentin and lyrica so will defer restarting. Recently restarted venlafaxine per PCP for anxiety. Remains on fluoxetine but was increased to 60mg daily per psych. Additional medication options are limited. Assessment & Plan (12/29/2022 11:50 AM LINE ORDERING CLINICIAN): Previously diagnosed by PCP. C/o diffuse generalized [...] PCP. Assessment & Plan (03/24/2022 10:42 AM LINE ORDERING CLINICIAN): Previously diagnosed by PCP. C/o diffuse generalized pain. S/e to gabapentin and lyrica so will defer restarting. Currently on venlafaxine and fluoxetine per PCP. Assessment & Plan (01/20/2022 10:27 AM LINE ORDERING CLINICIAN): Previously diagnosed by PCP. C/o diffuse generalized [...] dizziness. Assessment & Plan (02/17/2021 8:28 PM LINE ORDERING CLINICIAN): Add gabapentin at hs. Discussed increasing to 100mg bid over the coming week pending symptom improvement. Tremor 01/27/2021 Assessment & Plan (01/27/2021 9:30 AM LINE ORDERING CLINICIAN): Advised ct of head, eeg, referral to neurology Advised labs today - will notify her of results as they are available Syncope 01/27/2021 Assessment & Plan (02/17/2021 8:26 PM LINE ORDERING CLINICIAN): Has appt pending for cv that she will keep She will continue to not drive Assessment & Plan (01/27/2021 9:30 AM LINE ORDERING CLINICIAN): Advised no driving, climbing, or swimming Advised ct of head, eeg, referral to neurology Advised labs today - will notify her of results as they are available Plantar fasciitis, bilateral 11/04/2020 Assessment & Plan (11/04/2020 2:16 PM CDT): Will continue with care per cosmetic chemist Thrombophlebitis of superfic ial veins of right [...] 10/08/2020 Assessment & Plan (12/30/2020 8:38 PM LINE ORDERING CLINICIAN): Decrease maxzide due to hyponatremia Repeat bmp in the next week Assessment & Plan (10/08/2020 6:08 PM CDT): Continue with care per ent We discussed as she has a current rx for valium that we cannot provide her with another at the current time. We discussed that if her ent discontinues writing it for her that pending review of [place] cotton bag clipper we can further discuss a prescription. Paradoxical vocal fold motion disorder Assessment & Plan (09/12/2020 11:02 AM CDT): I have recommended laryngeal control therapy here at the [facility] in [...] time Assessment & Plan (02/17/2021 8:25 PM LINE ORDERING CLINICIAN): Stable, continue meds same at this time Assessment & Plan (12/30/2020 8:40 PM LINE ORDERING CLINICIAN): Decrease prozac to 30mg daily Assessment & [...] needed. Assessment & Plan (12/30/2020 8:39 PM LINE ORDERING CLINICIAN): Continue with care per GI Due to [...] hematology. Assessment & Plan (12/30/2020 8:40 PM LINE ORDERING CLINICIAN): Has appt pending with heme/onc that she will keep She was reminded as she previously had a prn valium not to take this on the day that she is using a prn [facility] and norco. Assessment & Plan (11/04/2020 2:15 PM CDT): Continue with care per oncologist Gout, unspecified 05/10/2020 Assessment & Plan (05/10/2020 12:50 PM CDT): Will evaluate further with labs. Advised her not to adjust doses of medications on her own. She will discontinue indomethacin at this time. Will continue to follow-up with cosmetic chemist as planned. Anxiety 04/18/2020 Assessment & Plan (07/10/2022 6:53 PM CDT): As the patient's pain causes depression and depression worsens pain, she may benefit from speaking to a pain psychologist like 1 at the pain center at [facility]. Assessment & Plan (10/13/2021 12:47 PM CDT): Discontinue with xanax. Will restart valium bid/prn anxiety or dizziness. Assessment & Plan (06/04/2021 12:49 PM CDT): Will add a prn xanax as she has discontinued valium. Assessment & Plan (02/17/2021 8:28 PM LINE ORDERING CLINICIAN): Resume prn valium, advised not taking more than 10mg daily. Advised potential for addictiveness with valium and additionally for sedation as a side effect. She was advised caution on driving after taking due to sedation potential. Assessment & Plan (04/18/2020 10:23 AM LINE ORDERING CLINICIAN): Continue medication same at this time Rib pain on left side 04/18/2020 Assessment & Plan (04/18/2020 10:23 AM LINE ORDERING CLINICIAN): We reviewed ct chest, abdominal us. She will continue to exercise 4x/week for 30min each session. Gastric polyp 04/18/2020 Assessment & Plan (04/18/2020 10:23 AM LINE ORDERING CLINICIAN): Continue with care per gi Lipoma of torso 04/18/2020 Assessment & Plan (04/18/2020 10:23 AM LINE ORDERING CLINICIAN): Will refer to gen surg to discuss further evaluation and treatment Abdominal pain 03/14/2020 Overview (03/14/2020): Added automatically from request for surgery [id number] Assessment & Plan (07/10/2022 6:50 PM CDT): [...] and advised to take this to [facility] today. Change in bowel habits 03/14/2020 Overview (03/14/2020): Added automatically from request for surgery [id number] Assessment & Plan (04/02/2023 7:35 PM LINE ORDERING CLINICIAN): The patient was recently treated with a number of antibiotics and Cosentyx. Even though Cosentyx was discontinued in January, there is an association with triggering a inflammatory bowel disease type condition. We would like to check stool studies including calprotectin to evaluate an infection or inflammatory cause of her symptoms. Hoarseness of voice 02/19/2020 Assessment & Plan (03/20/2020 11:27 AM LINE ORDERING CLINICIAN): resolved Assessment & Plan (02/19/2020 12:54 PM LINE ORDERING CLINICIAN): Will send for covid test today. Will notify her of results as available. Advised her in the interim to report to er if worsening. Will start on proventil hfa and change aciphex to dexilant. Positive depression screening 11/14/2019 Assessment & Plan (03/20/2020 11:26 AM LINE ORDERING CLINICIAN): Continue with prozac. Will add buspar bid, discussed increasing pending response. 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 Will continue with care per gi. Assessment & Plan (03/20/2020 11:27 AM LINE ORDERING CLINICIAN): Continue with care and testing per GI. Assessment & Plan (02/19/2020 12:54 PM LINE ORDERING CLINICIAN): Will send for covid test today. Will [...] stimulator. Assessment & Plan (03/24/2022 10:43 AM LINE ORDERING CLINICIAN): XR L-spine and MRI L-spine revealed multilevel [...] Plan (10/16/2019 10:34 AM CDT): Managed by credit underwriter via [facility] Osteoarthritis of hip 03/13/2015 Resolved [...] provided Assessment & Plan (03/13/2022 8:16 AM LINE ORDERING CLINICIAN): Obesity is unchanged. Discussed the patient's BMI. [...] provided Assessment & Plan (03/13/2022 8:16 AM LINE ORDERING CLINICIAN): Obesity is unchanged. Discussed the patient's BMI. The BMI is above average. BMI management plan is completed. BMI Follow-up includes: nutrition counseling, exercise counseling and education provided. Rheumatoid arthritis involvi ng multiple sites with positive rheumatoid factor 03/13/2022 05/21/19 Obesity (BMI 30-39.9) 01/28/20222022 Assessment & Plan (01/28/2022 8:30 AM LINE ORDERING CLINICIAN): Obesity is unchanged. Discussed the patient's BMI. The BMI is above average. BMI management plan is completed. BMI Follow-up includes: nutrition counseling, exercise counseling and education provided. BMI 30.0-30.9,adult 01/28/2022 03/13/19 23 Assessment & Plan (01/28/2022 8:30 AM LINE ORDERING CLINICIAN): Obesity is unchanged. Discussed the patient's BMI. [...] and joint pain after starting Plavix following AL s/p stent. Due to increased generalized pain [...] needed. Assessment & Plan (01/25/2023 9:31 AM LINE ORDERING CLINICIAN): Previously isloated APRIL 1:160 on AVISE with [...] needed Assessment & Plan (12/29/2022 11:49 AM LINE ORDERING CLINICIAN): Previously isloated APRIL 1:160 on AVISE with [...] well maintained on humira monotherapy however [place] [address] when she noted onset of dry, itchy [...] needed. Assessment & Plan (03/24/2022 10:41 AM LINE ORDERING CLINICIAN): Previously isloated APRIL 1:160 on AVISE with [...] psoriatic arthritis. Will continue humira 40mg SQ [id number]. Recent labs reviewed. Follow up in 4 months. Sooner if needed. Assessment & Plan (01/20/2022 10:29 AM LINE ORDERING CLINICIAN): Previously isloated APRIL 1:160 on AVISE with [...] a spondyloarthropathy. Will continue humira 40mg SQ [id number] and give this more time to take [...] starting. Will start approval of Humira 40mg [id number]. Patient advised of the side effects of [...] Blankenship. Assessment & Plan (04/29/2021 5:04 PM LINE ORDERING CLINICIAN): US right hand/wrist (04/21/21): Small grade 1 [...] Blankenship. Assessment & Plan (04/14/2021 5:31 PM LINE ORDERING CLINICIAN): 70-year-old female with PMHx of FM, gout, [...] 08/20/2021 Assessment & Plan (01/27/2021 9:30 AM LINE ORDERING CLINICIAN): Advised ct of head, referral to neurology Advised labs today - will notify her of results as they are available Acute cystitis without hematuria 12/17/2020 06/12/2021 Assessment & Plan (12/30/2020 8:40 PM LINE ORDERING CLINICIAN): resolved Assessment & Plan (12/17/2020 11:07 AM [...] 22 Assessment & Plan (12/30/2020 8:38 PM LINE ORDERING CLINICIAN): Obesity is unchanged. Discussed the patient's BMI. [...] 11/04/2020 Assessment & Plan (04/18/2020 10:22 AM LINE ORDERING CLINICIAN): Resolved. We reviewed recent labs. Continue medication [...] planned Assessment & Plan (03/20/2020 11:26 AM LINE ORDERING CLINICIAN): Continue with care and testing per GI. Retrieve CT from [place] [facility]. Will evaluate further with abdominal US and labs. Hypokalemia 03/20/2020 11/04/2020 Assessment & Plan (08/29/2020 12:31 PM CDT): Seen on labs at [place] [facility]. Repeat potassium level this week Assessment & Plan (04/18/2020 10:22 AM LINE ORDERING CLINICIAN): Resolved. We reviewed recent labs. Continue medication same at this time. Assessment & Plan (03/20/2020 11:27 AM LINE ORDERING CLINICIAN): Will reevaluate on labs. Discussed likely resolved as she has stopped the diazide. Cough 02/19/2020 08/20/2021 Assessment & Plan (03/20/2020 11:27 AM LINE ORDERING CLINICIAN): resolved Assessment & Plan (02/19/2020 12:54 PM LINE ORDERING CLINICIAN): Will send for covid test today. Will [...] 25 Assessment & Plan (02/17/2021 8:27 PM LINE ORDERING CLINICIAN): Encouraged heart healthy diet and exercise Assessment & Plan (05/10/2020 8:33 AM CDT): Obesity is unchanged. Discussed the patient's BMI. The BMI is above average. BMI management plan is completed. BMI Follow-up includes: nutrition counseling, exercise counseling and education provided. Assessment & Plan (04/18/2020 7:47 AM LINE ORDERING CLINICIAN): Obesity is unchanged. Discussed the patient's BMI. [...] constipation. Assessment & Plan (03/24/2019 4:08 PM LINE ORDERING CLINICIAN): Improved with diet modification and as neededlaxatives Gastroesophageal reflux dise ase with esophagitis 07/26/2018 05/08/2021 Overview (07/26/2018): Added automatically from request for surgery [id number] Assessment & Plan (11/09/2019 7:29 PM CDT): Unfortunately Dexilant remains a plan exclusion. She can try and get this through [place] [facility]. Alternatively we could offer her Carafate in conjunction with AcipHex. Assessment & Plan (10/16/2019 10:34 AM CDT): Managed by gastroenterology Assessment & Plan (03/24/2019 4:07 PM LINE ORDERING CLINICIAN): Patient's symptoms her currently manageable with every [...] on file Legal Sex Female 5:33 AM LINE ORDERING CLINICIAN Gender Identity Not on file Sexual Orientation [...] CDT Respiratory Rate 20 04/25/2024 8:41 AM LINE ORDERING CLINICIAN Oxygen Saturation 95% 08/29/2024 10:05 AM CDT Inhaled Oxygen Concentration - - Weight 63.5 kg (140 lb) 08/29/2024 10:05 AM CDT Height 149.9 cm (4' 11) 08/29/2024 10:05 AM CDT Body Mass Index 28.28 08/29/2024 10:05 AM CDT Plan of Treatment Not on file Medical Devices Implanted Type Area Reduction Furnace Operator Helper Device Identifier Shelf Expiration Date Model / Serial / Lot R-Hip 2014 Right: Hip Procedures Procedure Name Priority Date/Time Associated Diagnosis Comments ERYTHROCYTE SEDIMENTATION RATE Routine 08/29/2024 10:21 AM CDT Polyarthralgia prison current use of therapeutic drug CRP (ACUTE PHASE) Routine 08/29/2024 10: 21 AM CDT Polyarthralgia prison current use of therapeutic drug COMPREHENSIVE METABOLIC PANEL Routine 08/29/2024 10:21 AM CDT Polyarthralgia prison current use of therapeutic drug CBC WITH AUTO DIFFERENTIAL Routine 08/29/2024 10:21 AM CDT Polyarthralgia prison current use of therapeutic drug IR INJECTION SI JOINT LEFT WITH GUIDANCE Schedule Routine, Read Routine (OP Routine) 08/18/2024 10:40 AM CDT Chronic sacroiliac joint pain SURGICAL PATHOLOGY Routine 08/11/2024 12 :00 AM CDT Neoplasm of skin LOWER EXTREMITY VENOUS DOPPLER Schedule Routine, Read Routine (OP Routine) 07/29/2024 10:46 AM CDT SCAN - RADIOLOGY/IMAGING 07/29/2024 TPMT ACTIVITY Routine 07/28/2024 11:31 AM CDT Polyarthralgia termination clerk current use of therapeutic drug CRP (ACUTE PHASE) Routine 07/28/2024 11: 31 AM CDT Polyarthralgia ERYTHROCYTE SEDIMENTATION RATE Routine 07/28/2024 11:31 AM CDT Polyarthralgia CBC WITH AUTO DIFFERENTIAL Routine 07/28/2024 11:31 AM CDT Polyarthralgia termination clerk current use of therapeutic drug COMPREHENSIVE METABOLIC PANEL Routine 07/28/2024 11:31 AM CDT Polyarthralgia prison current use of therapeutic drug SCAN - LABS 07/28/2024 DEXA AXIAL SKELETON BONE DENSITY 1 OR MORE SITES Schedule Routine, Read Routine (OP Routine) 07/25/2024 3:53 PM CDT Post-menopausal SCAN - RADIOLOGY/IMAGING 06/24/2024 DIAGNOSTIC MAMMOGRAM Schedule Routine, Read Routine (OP Routine) 11/05/2023 3:39 PM CDT HEPATITIS PANEL, ACUTE Routine 12/22/2021 11:17 AM CDT Fatigue, unspecified type COLONOSCOPY 03/25/2020 1:48 PM LINE ORDERING CLINICIAN from Last 3 Months or Most Recently [...] BLOOD ORDERABLES Final Result Performing Organization Address City/[facility] Co de Phone Number [facility] [address] [place] [address] * (ABNORMAL) Erythrocyte sedimentation rate (08/29/2024 10:21 AM CDT) Pathologist [facility] Erythrocyte sedimentation rate 38(H) < OR = 30 mm/h [facility] Blood 08/29/2024 10:2 1 AM CDT 08/29/2024 10:21 AM CDT Tashia GRAHAM LAB BLOOD ORDERABLES Final Result Performing Organization Address [facility] Co de Phone Number [facility] [address] [place] [address] * CRP (acute phase) (08/29/2024 10:21 AM CDT) Pathologist [facility] C-RP <3.0 <8.0 mg/L [facility] Blood 08/29/2024 10:2 1 AM CDT 08/29/2024 10:21 AM CDT Tashia GRAHAM LAB BLOOD ORDERABLES Final Result Performing Organization Address [facility] de Phone Number [facility] [address] [place] [address] * (ABNORMAL) Comprehensive metabolic panel (08/29/2024 10:21 AM CDT) Pathologist [facility] Glucose 80 65 - 99 mg/dL [facility] [...] LAB BLOOD ORDERABLES Final Result [facility] [address] [facility] [place] [address] * IR Injection SI Joint Left with [...] results best viewed via link to PDF [facility] [address] [place] [address], [address], [place] [address] [email or web address] Note to Patients: This report may [...] 08/15/2024 Submitting Physician Information: Jelly Rodríguez M.D. [address] [facility] [address] [place] [address], DERMATOPATHOLOGY REPORT RESULTS DIAGNOSIS: SKIN, LEFT FOREARM, [...] cr/tyc ICD-9 A; ZSD.808 Clerical Data A; 24959 The characteristics of special, immunohistochemical, and immunofluorescence stains and in-situ hybridization tests performed by the [facility] were deemed acceptable in ongoing quality process lead measures and in compliance with regulations drawn from the Clinical Laboratory Improvement Act hc2984 (CLIA '88). Control reactions for all stains performed were deemed adequate and appropriate by a pathologist prior to evaluation of patient tissue. Some diagnoses were rendered with the assistance of laboratory-developed tests utilizing analyte-specific reagents; the performance characteristic of these tests were determined by [facility] and are not cleared or approved by the [place] Food an Drug administration. Laboratory developed test may only be performed in a facility that is certified by the [facility] as a high-complexity laboratory under CLIA '88. These tests are used for clinical purposes and are not investigational. us Jelly Rodríguez MD LAB PATHOLOGY ORDERABLES Final Result [facility] [address] [place] [id number] * LOWER EXTREMITY VENOUS DOPPLER (07/29/2024 10:46 AM CDT) Anatomical Region Laterality Modality N/A Ultrasound us Historical Provider IMG US PROCEDURES Final R esult * SCAN - RADIOLOGY/IMAGING (07/29/2024) Anatomical Region Laterality Modality Other us Sergei adams Result * TPMT activity profile, RBC (07/28/2024 11:31 AM CDT) [facility] TPMT activity 13 nmol/hr/mL RBC [facility], Comment: Reference Range for TPMT Activity: >12 Normal 4-12 Heterozygote or low metabolizer <4 Homozygote Deficient Range This test was developed and its analytical performance characteristics have been determined by [facility]. It has not been cleared or approved by the FDA. This assay has been validated pursuant to the CLIA regulations and is used for clinical purposes. Blood 07/28/2024 11:3 1 AM CDT 07/28/2024 11:31 AM CDT Tashia GRAHAM LAB BLOOD ORDERABLES Final Result [facility], [address] [place] [address] * (ABNORMAL) CBC with auto differential (07/28/2024 11:31 AM CDT) [facility] WBC 6.3 3.8 - 10.8 Thousand/u L [...] BLOOD ORDERABLES Final Result Performing Organization Address [facility]/ZIP Co de Phone Number QUE[facility] [address] [place] [address] * (ABNORMAL) Erythrocyte sedimentation rate (07/28/2024 11:31 AM CDT) Pathologist [facility] Erythrocyte sedimentation rate 41(H) < OR = 30 mm/h [facility] Blood 07/28/2024 11:3 1 AM CDT 07/28/2024 11:31 AM CDT Tashia GRAHAM LAB BLOOD ORDERABLES Final Result Performing Organization Address City/[facility]/ZIP Co de Phone Number [facility] [address] [place] [address] * CRP (acute phase) (07/28/2024 11:31 AM CDT) C-RP 6.4 <8.0 mg/L [facility] Blood 07/28/2024 11:3 1 AM CDT 07/28/2024 11:31 AM CDT Tashia GRAHAM LAB BLOOD ORDERABLES Final Result [facility] [address] [address] * (ABNORMAL) Comprehensive metabolic panel (07/28/2024 11:31 [...] LAB BLOOD ORDERABLES Final Result [facility] [address] [address] * SCAN - LABS (07/28/2024) Anjelica Huntley LAP REGULATOR Final Result * (ABNORMAL) Dexa Axial Skeleton Bone Density 1 or 2 Site (07/25/2024 3:53 PM CDT) SCRIBED DXA T-SCORE 2.5 Anatomical Region Laterality Modality Body N/A Radiographic Tram ging Anjelica Huntley LAP REGULATOR IMG DXA PROCEDURES Final Resu lt * [...] Comment: For additional information, please refer to http://education.Baton/faq/SZJ198 (This link is being provided for informational/ [...] a test for HCV RNA (test code 90774) is suggested. For additional information please refer to http://education.Baton/faq/YNH41m9 (This link is being provided for informational/ educational purposes only.) Blood 12/22/2021 11:1 7 AM CDT 12/22/2021 11:18 AM CDT Tashia GRAHAM LAB MICROBIOLOGY - NERAL ORDERABLES Final Result [facility] [address] [facility] [place] [address] * COLONOSCOPY (03/25/2020 1:48 PM LINE ORDERING CLINICIAN) Anatomical Region Laterality Modality Other Narrative Procedure Note Joseph Guillaume MD PhD - 03/25/2020 1:48 PM CST ENDOSCOPY LAB Patient Name: Maggi De Leon Procedure Date: 03/25/2020 1:48 PM Date of : 1950 Admit Type: Outpatient Age: 69 Gender: Female Attending MD: Joseph Guillaume MD,PHD Room: [facility] ENDOSCOPY ROOM 03 Note Status: Finalized [...] The scope was passed under direct vision.The [id number] was introduced through the anuswith the intention of advancing to the ileum. The scopewas advanced to the sigmoid colon before the procedurewas aborted. Medications were given. The scope waspassed under direct vision. The [id number] was introduced through the anus and advanced [...] business hours - Please call theNurse Coordinator: [phone]. After hours, evening, nights, weekends and holidays- Please call the hospital high pressure kettle operator at and ask for the GI fellow healthcare economics manager. Attending Participation: I personally performed the entire procedure. Electronically signed by Joseph Guillaume MD. Joseph Guillaume MD, PHD 03/25/2020 2:32:06 PM Number of Addenda: 0 Note Initiated On: 03/25/2020 1:48 PM Joseph Guillaume MD PhD ENDOSCOPY PROCEDURES Ca l Result from Last 3 Months or Most Recently Relevant to Health Maintenance Insurance MEDICARE FOR LIFE MEDICARE [facility] Address: [address] [address] [place] [address] FOR [place] [address] FOR LIFE MEDICARE Advance Directives For more information, please contact: [phone] * Full Code (Latest Code Status on File) Date Activated Date Inactivated Comments 03/25/2020 11:54 AM 03/25/2020 7:31 PM * Full Code Date Activated Date Inactivated Comments 08/04/2018 10:36 AM 08/04/2018 5:07 PM Care Teams Supersonic Engineer Relationship Specialty Start Date End Date Anjelica Huntley NP [address] [place] [address] PCP - General Internal Medicine 06/10/22 Buzz Blankenship MD [address] [place] [address] Consulting Physician Rheumatology 04/14/21
--- OUTSIDE RECORDS SUMMARY | 2024-09-15 18:24 | XMS_ITS | Encounter Summary ---
Author Organization [facility] Healthcare Address [address] [place] [address] Care Team Providers Care Fabrication Department Supervisor Name Role Phone Vidya Carlson MD Primary Care Provider Abner Chavez Primary Care Provid er Vidya Carlson MD Primary Care Provider Abner Chavez Primary Care Provid er Abner Chavez Primary Care Provid er Era Espinoza MD Primary Care Provider [phone] Era Espinoza MD Primary Care Provider [phone] Era Espinoza MD Primary Care Provider [phone] Era Espinoza MD Primary Care Provider [phone] Era Espinoza MD Primary Care Provider [phone] Unknown, Notinfile Primary Care Provider Unavail able Annamaria Bates Primary Care Provider [phone] Buzz Blankenship MD Unavailable [phone] Anjelica Huntley BALE PILER Primary Care Provider [phone] Anjelica Huntley BALE PILER Primary Care Provider [phone] Encounter Details Date Type Department Care Team (Late st Contact Info) Description 10/31/2016 Orders Only [facility] Health Information Management [address] [place] [address] Scanning, Provider Social History Tobacco Use Types Packs/Day Years Used Date Smoking Tobacco: Former Comments Unknown Sex and Gender Information Value Date Recorded Sex Assigned at Not on file Legal 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 02/21/2020 02/21/2020 03/06/2020 3:0 7 AM WIRE WEAVER HELPER Diarrhea 03/30/2023 03/30/2023 04/13/2023 3:06 AM WIRE WEAVER HELPER documented as of this encounter Care Teams Fabrication Department Supervisor Relationship Specialty Start Date End Date Vidya Carlson MD [address] [place] [address] PCP - General 09/28/16 11/22/16 Abner Chavez PA [address] [place] [address] PCP - General 11/23/16 11/30/16 Vidya Carlson MD [address] [place] [address] PCP - General 12/01/16 03/07/17 Abner Chavez PA [address] [place] [place] [address] PCP - General 03/08/17 03/14/17 Abner Chavez PA [address] [place] [place] [address] PCP - General 03/15/17 07/19/17 Era Espinoza MD [address] [place] [place] [address] PCP - General 07/20/17 07/28/17 Era Espinoza MD [address] [place] [place] [address] PCP - General 07/29/17 09/20/17 Era Espinoza MD [address] [place] [address] PCP - General Family Practice 09/21/17 11/21/17 Era Espinoza MD [address] [place] [place] [address] PCP - General Family Practice 11/22/17 03/07/19 Era Espinoza MD [address] [place] [address] PCP - General Family Practice 03/08/19 10/10/19 Unknown, Notinfile PCP - General 10/11/19 10/15/19 Annamaria Bates PA PCP - General Graphite Mill Operator 10/16/19 12/01/21 Anjelica Huntley NP [address] [place] [address] PCP - General Internal Medicine 12/02/21 06/09/22 Anjelica Huntley, MARTA [address] [place] [address] [address] [place] [address] PCP - General Internal Medicine 06/10/22 Buzz Blankenship MD [address] [place] [address] Consulting Physician Rheumatology 04/14/21 documented as of this encounter
--- OUTSIDE RECORDS SUMMARY | 2024-09-15 18:24 | XMS_ITS | Encounter Summary ---
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 [facility] [address] [place] [address] PCP - General Internal Medicine 06/10/22 Buzz Blankenship MD [address] [place] [address] Consulting Physician Rheumatology 04/14/21 documented as of this encounter
[2024-09-15 19:02] LABS: Magnesium 1.7 mg/dL (1.6-2.3)
--- NOTE | 2024-09-15 19:02 | ED_ITS ---
HPI - Weakness General Chief complaint: Weakness Stated complaint: weakness Time Seen by Provider: 09/15/24 18:08 Source: patient Mode of arrival: ambulatory Limitations: no limitations History of Present Illness HPI Narrative: This is a 73-year-old female that presents to the emergency department for generalized weakness. Reports associated chest pain, abdominal pain, difficulty urinating. Symptoms have been ongoing since yesterday. Also reports a cough, nausea, shortness of breath. Denies fevers, vomiting, diarrhea. Related Data Home Medications ?Medication ?Instructions ?Recorded ?Confirmed ?Last Taken ?Type glucosamine sulf dipot 1 cap PO DAILY 02/26/20 02/06/24 02/26/20 09:00 History chlr,msm,chond 550 mg-C 30 mg-denisa 1 mg capsule (Glucosamine Chondroitin) folic acid 1 mg tablet 1 mg PO DAILY 11/29/21 02/06/24 Unknown History linaclotide 72 mcg capsule 72 mcg PO DAILY 11/29/21 02/06/24 Unknown History (Linzess) trazodone 50 mg tablet 50 mg PO DAILY 05/20/22 08/28/23 Unknown History triamterene 37.5 1 tablet PO DAILY 05/20/22 02/06/24 Unknown History mg-hydrochlorothiazide 25 mg tablet alprazolam 0.25 mg tablet 0.25 mg PO BID 06/08/22 02/06/24 Unknown History fluoxetine 40 mg capsule 40 mg PO DAILY 02/20/23 02/06/24 Unknown History linaclotide 145 mcg capsule 145 mcg PO .QD 02/06/24 02/06/24 Unknown History (Linzess) Allergies Allergy/AdvReac Type Severity Reaction Status Date / Time Penicillins Allergy Severe swelling Verified 05/25/24 10:06 eyes oxycodone AdvReac Intermediate n/v, Verified 05/25/24 10:06 dizziness pregabalin (From Lyrica) AdvReac Intermediate Dizziness Verified 05/25/24 10:06 tramadol AdvReac Intermediate n/v, Verified 05/25/24 10:06 dizziness Review of Systems 2 Review of Systems: All systems reviewed & are unremarkable except as noted in HPI and below PMFSH Past Medical History Medical History Hypertension Dyslipidemia Gastroesophageal reflux disease Degenerative disc disease Diverticulosis Anxiety Depression Arthritis Generalized; primarily in knees and hips. Endometriosis Rectal polyp Seasonal allergies Meniere's disease Surgical History Surgical History History of total abdominal hysterectomy and bilateral salpingo-oophorectomy History of excision of pilonidal cyst History of cholecystectomy History of right hip replacement History of 3 sections Family History Family History Mother Hypertension Cerebrovascular accident Hyperlipidemia Sibling Diabetes mellitus Social History Social History Social History: Surrogate medical decision maker: Toribio Kamara, spouse. Code status: Full code. Smoking status: Never smoker Alcohol intake: never Substance use: never Substance use type: does not use Do You Feel Safe in your Home?: Yes Lack of Transportation: No Lack of Food: Never True Current Housing: I Have Housing Concerned About Future Housing: No Difficulty Paying Gas/Electric Bills: No Difficulty Paying for Meds: No Currently Unemployed: No Education: Associate Degree Difficulty w/ Childcare or Family Care: No Additional living arrangements comments: . Lives with spouse in [place]. They have 4 children. Additional occupation/education comments: Retired from the [employer]. Spiritual care concerns: No Exam 2 Narrative: GENERAL: Well-appearing, well-nourished, and in no acute distress. HEAD: Normocephalic, atraumatic. EYES: EOMI. ENT: Nares clear, no rhinorrhea or epistaxis. Mucous membranes moist. Oropharynx without tonsillar hypertrophy exudate or other lesions. NECK: Supple. No adenopathy or masses. CHEST: Clear to auscultation. No respiratory distress. No wheezes rales or rhonchi HEART: Regular rate and rhythm. No murmur heard. Normal peripheral pulses. ABDOMEN: Soft, nontender, nondistended, normal active bowel sounds. EXTREMITIES: Normal range of motion. No edema. SKIN: Warm, dry, no rash. NEURO: No focal deficits. Alert and oriented x3. PSYCH: Normal mood and affect Course Vital Signs Vital signs: Vital Signs Temperature 98.3 F 09/15/24 14:11 Pulse Rate 78 09/15/24 14:11 Respiratory Rate 17 09/15/24 14:11 Blood Pressure 138/72 09/15/24 14:11 Pulse Oximetry 99 09/15/24 14:11 Oxygen Delivery Room Air 09/15/24 14:11 Temperature 97.6 F 09/15/24 18:28 Pulse Rate 70 09/15/24 18:28 Respiratory Rate 16 09/15/24 18:28 Blood Pressure 150/61 H 09/15/24 18:28 Pulse Oximetry 100 09/15/24 18:28 Oxygen Delivery Room Air 09/15/24 18:28 MDM - Weakness MDM Narrative Medical decision making narrative: Patient presents the emergency department with several complaints. Reporting abdominal pain, nausea, chest pain, shortness of breath, cough, generalized weakness. Urinary symptoms. Patient is afebrile and nontoxic appearing. Her vitals are stable. Cbc without leukocytosis. Hemoglobin is normal. Metabolic panel with hyponatremia which appears chronic for patient. Potassium is also mildly low. This was replaced. Magnesium is normal. Urine without evidence of infection. This was sent for culture. Patient started on IV antibiotics. EKG without concerning ST changes, baseline and 3 hour troponins are negative. D- dimer elevated, CTA of the chest obtained with abdomen and pelvis. No acute cardiopulmonary abnormality or PE, or acute intra-abdominal/pelvic process. Patient and family updated on workup and agree with plan of care. She was instructed on close follow-up with her primary provider. She was given warnings to return to the ER Differential Diagnosis Differential diagnosis: Likely anemia, hypoglycemia, hypothyroidism, sepsis, dehydration and other (UTI, PE) Lab Data Attestation: I reviewed the patient's lab results. 09/15/24 14:29 09/15/24 14:29 Labs: Lab Results 09/15/24 09/15/24 09/15/24 Range/Units 14:29 17:33 19:43 WBC 8.7 (4.5-10.0) K/mm3 RBC 4.24 (4.2-5.4) M/mm3 Hgb 13.1 (12.0-15.0) g/dL Hct 37.6 (37.0-47.0) % MCV 88.7 (80-100) fl MCH 30.9 (26-34) pg MCHC 34.8 (32-36) g/dl RDW 13.5 (11.5-14.5) % Plt Count 434 H (150-375) k/mm3 MPV 8.7 (7.4-10.4) fl Immature Gran % (Auto) 0.5 (0-0.5) % Neut % (Auto) 69.7 (45.5-73.1) % Lymph % (Auto) 20.5 (18.3-44.2) % Archer % (Auto) 8.8 H (2.6-8.5) % Eos % (Auto) 0.2 (0-4.4) % Baso % (Auto) 0.3 (0.2-1.2) % Lymph # (Auto) 1.79 (0.9-3.2) K/mm3 Archer # (Auto) 0.8 H (0.1-0.6) K/mm3 Eos # (Auto) 0.0 (0-0.3) K/mm3 Baso # (Auto) 0.0 (0.0-0.1) K/mm3 Abs Immat Gran (auto) 0.04 H (0.00-0.031) K/mm3 Absolute Neuts (auto) 6.1 (1.3-6.7) K/mm3 Absolute Nucleated RBC 0.000 (0.0-0.012) K/mm3 Nucleated RBC % 0.0 (0.0-0.2) % PT 12.1 (11.1-14.7) Seconds INR 0.9 APTT 24.7 (22.3-36.8) Seconds D-Dimer 0.82 H (<0.48) ug/mL Sodium 128 L (137-145) mmol/L Potassium 3.2 L (3.4-5.0) mmol/L Chloride 91 L (98-107) mmol/L Carbon Dioxide 26 (22-30) mmol/L Anion Gap 11 (4-12) mmol/L BUN 10 D (7-17) mg/dL Creatinine 0.82 (0.7-1.0) mg/dL Estim Creat Clear Calc Not Reportable Estimated GFR > 60 (59 - ) Glucose 106 (65-110) mg/dL Calcium 9.3 (8.4-10.2) mg/dL Magnesium 1.7 (1.6-2.3) mg/dL Total Bilirubin 0.2 (0.2-1.3) mg/dL AST 38 H (14-36) U/L ALT 22 (6-35) U/L Alkaline Phosphatase 98 (38-126) U/L Troponin I < 0.012 < 0.012 (0.000-0.034) ng/mL NT-Pro-B Natriuret Pep 111 H (19.9-100) pg/mL Total Protein 7.6 (6.3-8.2) g/dL Albumin 4.2 (3.5-5.1) g/dL Lipase 227 (23-300) U/L TSH (Reflex) 2.160 (0.465-4.68) uIU/mL Urine Color Yellow (Yellow) Urine Appearance Turbid H (Clear) Urine pH 7.0 (5.0-9.0) Ur Specific [place] 1.010 (1.001-1.035) Urine Protein Negative (Negative) mg/dL Urine Glucose (UA) Negative (Negative) mg/dL Urine Ketones Trace H (Negative) mg/dL Ur Blood (Man) Negative (Negative) Urine Nitrate Negative (Negative) Urine Bilirubin Negative (Negative) Urine Urobilinogen 1.0 (<2.0) mg/dL Leukocyte Esterase Rfl 1+ H (Negative) SOUMYA/UL Urine RBC 0-2 (0-2) /hpf Urine WBC 6-10 H (0-3) /hpf Ur Squamous Epith Cells None seen (Few) /hpf Urine Bacteria None seen /hpf Urine Casts 0-2 Influenza A (RT-PCR) Negative (Negative) Influenza B (RT-PCR) Negative (Negative) RSV (RT-PCR) Negative (Negative) SARS-CoV-2 RNA (RT-PCR) Negative (Negative) 09/15/24 Range/Units 20:58 WBC (4.5-10.0) K/mm3 RBC (4.2-5.4) M/mm3 Hgb (12.0-15.0) g/dL Hct (37.0-47.0) % MCV (80-100) fl MCH (26-34) pg MCHC (32-36) g/dl RDW (11.5-14.5) % Plt Count (150-375) k/mm3 MPV (7.4-10.4) fl Immature Gran % (Auto) (0-0.5) % Neut % (Auto) (45.5-73.1) % Lymph % (Auto) (18.3-44.2) % Archer % (Auto) (2.6-8.5) % Eos % (Auto) (0-4.4) % Baso % (Auto) (0.2-1.2) % Lymph # (Auto) (0.9-3.2) K/mm3 Archer # (Auto) (0.1-0.6) K/mm3 Eos # (Auto) (0-0.3) K/mm3 Baso # (Auto) (0.0-0.1) K/mm3 Abs Immat Gran (auto) (0.00-0.031) K/mm3 Absolute Neuts (auto) (1.3-6.7) K/mm3 Absolute Nucleated RBC (0.0-0.012) K/mm3 Nucleated RBC % (0.0-0.2) % PT (11.1-14.7) Seconds INR APTT (22.3-36.8) Seconds D-Dimer (<0.48) ug/mL Sodium (137-145) mmol/L Potassium (3.4-5.0) mmol/L Chloride (98-107) mmol/L Carbon Dioxide (22-30) mmol/L Anion Gap (4-12) mmol/L BUN (7-17) mg/dL Creatinine (0.7-1.0) mg/dL Estim Creat Clear Calc Estimated GFR (59 - ) Glucose (65-110) mg/dL Calcium (8.4-10.2) mg/dL Magnesium (1.6-2.3) mg/dL Total Bilirubin (0.2-1.3) mg/dL AST (14-36) U/L ALT (6-35) U/L Alkaline Phosphatase (38-126) U/L Troponin I < 0.012 (0.000-0.034) ng/mL NT-Pro-B Natriuret Pep (19.9-100) pg/mL Total Protein (6.3-8.2) g/dL Albumin (3.5-5.1) g/dL Lipase (23-300) U/L TSH (Reflex) (0.465-4.68) uIU/mL Urine Color (Yellow) Urine Appearance (Clear) Urine pH (5.0-9.0) Ur Specific [place] (1.001-1.035) Urine Protein (Negative) mg/dL Urine Glucose (UA) (Negative) mg/dL Urine Ketones (Negative) mg/dL Ur Blood (Man) (Negative) Urine Nitrate (Negative) Urine Bilirubin (Negative) Urine Urobilinogen (<2.0) mg/dL Leukocyte Esterase Rfl (Negative) SOUMYA/UL Urine RBC (0-2) /hpf Urine WBC (0-3) /hpf Ur Squamous Epith Cells (Few) /hpf Urine Bacteria /hpf Urine Casts Influenza A (RT-PCR) (Negative) Influenza B (RT-PCR) (Negative) RSV (RT-PCR) (Negative) SARS-CoV-2 RNA (RT-PCR) (Negative) Imaging Data Radiologist's impression: ITS Impressions Venous Doppler Study 09/15/24 15:16 IMPRESSION: 1. No deep venous thrombosis in the left lower limb. Head CT 09/15/24 15:18 IMPRESSION: 1. Stable appearance of age-related changes including mild to moderate diffuse volume loss and mild scattered white matter hypoattenuation consistent with chronic small vessel ischemic disease. No acute intracranial process. Chest X-Ray 09/15/24 15:31 IMPRESSION: No acute process. Chest/Abdomen/Pelvis CTA 09/15/24 21:46 IMPRESSION: 1. No acute cardiopulmonary disease or acute intra-abdominal/pelvic process. ECG Data EKG #1: ECG completion date: 09/15/24 EKG Interpretation: normal rate, sinus rhythm, no ST changes and normal QT Critical Care Time Critical Care Time Critical Care Time: No Discharge Plan Discharge Clinical Impression: Acute UTI, Dehydration, Hypokalemia, Chronic hyponatremia Patient Disposition: Home Condition: Stable Instructions: Antibiotic Form, Dehydration (ED), Hyponatremia (ED), Hypokalemia (ED), Urinary Tract Infection in Older Adults (ED) Additional Instructions: Return to the emergency department if you experience fever, chest pain, shortness of breath, abdominal pain with nausea and vomiting, weakness, numbness, or any other symptoms that are concerning to you. Remain well hydrated. Take oral antibiotic as prescribed Follow up with your primary care doctor Patient Language: Yi Prescriptions: New cefdinir 300 mg capsule 300 mg PO Q12H 5 Days Qty: 10 0RF No Action folic acid 1 mg tablet 1 mg PO DAILY Linzess 72 mcg capsule 72 mcg PO DAILY trazodone 50 mg tablet 50 mg PO DAILY triamterene-hydrochlorothiazid 37.5-25 mg tablet 1 tablet PO DAILY nitrofurantoin monohyd/m-cryst [Macrobid] 100 mg capsule 100 mg PO Q12H 5 Days Qty: 10 0RF Rx Instructions: must administer with a meal/food nystatin-triamcinolone 100,000-0.1 unit/g-% cream 1 applic topical BID 14 Days Qty: 60 0RF sulfamethoxazole-trimethoprim [Bactrim DS] 800-160 mg tablet 1 tablet PO Q12H 7 Days Qty: 14 0RF alprazolam 0.25 mg tablet 0.25 mg PO BID Linzess 145 mcg capsule 145 mcg PO .QD sulfamethoxazole-trimethoprim [Bactrim DS] 800-160 mg tablet 1 tablet PO Q12H 7 Days Qty: 14 0RF metronidazole 500 mg tablet 500 mg PO Q8H 7 Days Qty: 21 0RF chlorhexidine gluconate [Hibiclens] 4 % liquid 1 applic topical ONCE 7 Days Qty: 118 0RF fluoxetine 40 mg capsule 40 mg PO DAILY aspirin 81 mg Tablet,Delayed Release (Dr/Ec) 81 mg PO QAM Qty: 90 3RF Glucosamine Chondroitin 550-30-1 mg Capsule 1 cap PO DAILY Eliquis DVT-PE Treat 30D Start 5 mg (74 tabs) tablets,dose pack See Rx Instructions .ROUTE .COMPLEX Qty: 74 0RF Rx Instructions: orally per package directions Follow-up/Referrals: Audi,MARTA Dejesus [Primary Care Provider] -
--- NOTE | 2024-09-15 19:35 | PC.NURSE ---
received report from SERG gonzalez for cont. of care. Pt being taken to bathroom in w/c by sound engineering technician for urine sample at this time.
[2024-09-15 20:12] LABS: Thyroid Stimulating Hormone Reflex 2.160 uIU/mL (0.465-4.68)
[2024-09-15 20:26] LABS: Add Urine Microscopic? YES; Appearance Urine Turbid (Clear); Glucose Urine UA Negative (Negative); Leukocyte Esterase Ur 1+ LEU/UL (Negative); Nitrate Urine Negative (Negative); Non Pathogenic Casts 0-2; Specific Grav Ur 1.010 (1.001-1.035)
[2024-09-15 20:30] LABS: Influenza A QL RT-PCR Negative (Negative); Influenza B QL RT-PCR Negative (Negative); RSV RNA, RT-PCR Negative (Negative); SARS-CoV-2 RNA PCR Negative (Negative)
--- NOTE | 2024-09-15 20:50 | ECG_ITS ---
Test Date: 2024-09-15 21:02:20 Measurements Intervals [place] Rate: 70 P: 28 AK: 186 QRS: 14 QRSD: 90 T: 4 QT: 401 QTc: 434 Interpretive Statements SINUS RHYTHM INTERPRETATION BASED ON A DEFAULT AGE OF 40 YEARS Compared to ECG 09/15/2024 17:29:03 NO SIGNIFICANT CHANGES Electronically Signed On 09-16-2024 18:50:37 CDT by Lakhwinder Gonzalez M.D.
[2024-09-15] MEDS: POTASSIUM CHLORIDE 20 MEQ ER TABLET 40 MEQ PO (21:07)
[2024-09-15] MEDS: SODIUM CHLORIDE 0.9% IV 500 ML 999 ML IV CONT (21:28)
--- NOTE | 2024-09-15 21:33 | PC.NURSE ---
pt taken to CT by jensen on stretcher
[2024-09-15 21:36] LABS: Troponin I < 0.012 ng/mL (0.000-0.034)
[2024-09-15] MEDS: cefTRIAXone 1 GM in SODIUM CHLORIDE 0.9% IV 50 ML 100 ML IVPB (23:05)
== END 2024-09-15 23:52 | disposition home or self-care (01) ==
PROVIDERS: Emergency Medicine; Registered Nurse; Emergency Provider Physician Assistant; PCP Nurse Practitioner Family
DX: N39.0 Urinary tract infection, site not specified (principal); E86.0 Dehydration; E87.1 Hypo-osmolality and hyponatremia; E87.6 Hypokalemia; Z20.822 Contact with and (suspected) exposure to COVID-19; R06.02 Shortness of breath; I10 Essential (primary) hypertension; E78.5 Hyperlipidemia, unspecified; K21.9 Gastro-esophageal reflux disease without esophagitis; M16.0 Bilateral primary osteoarthritis of hip; M17.0 Bilateral primary osteoarthritis of knee; N80.9 Endometriosis, unspecified; H81.09 Meniere's disease, unspecified ear; F41.9 Anxiety disorder, unspecified; F32.A Depression, unspecified; Z96.643 Presence of artificial hip joint, bilateral; Z86.0100 Personal history of colon polyps, unspecified; Z90.79 Acquired absence of other genital organ(s); Z90.722 Acquired absence of ovaries, bilateral; Z90.710 Acquired absence of both cervix and uterus; Z79.899 Other long term (current) drug therapy; Z79.82 Long term (current) use of aspirin; Z79.01 Long term (current) use of anticoagulants; R94.31 Abnormal electrocardiogram [ECG] [EKG]; R93.6 Abnormal findings on diagnostic imaging of limbs
CPT/HCPCS: 36415; 70450; 71046; 71275; 73030; 74177; 80053; 81001; 83690; 83735; 83880; 84443; 84484; 85025; 85380; 85610; 85730; 87637; 93005; 93971; 96361; 96365; 99284; A9270; J0696; J7040; Q9967

== ENCOUNTER 2025-01-15 08:38 | Emergency (ER) | payer MEDICARE, OTHER, SELFPAY ==
[2025-01-15 08:48] VITALS: BP 154/63; PULSE 69; RESP 16; TEMP 36.1; O2SAT 100
--- NOTE | 2025-01-15 08:58 | ED.GENADULT ---
HPI - General Adult General Chief complaint: Back Pain/Injury Stated complaint: pain buttocks Time Seen by Provider: 01/15/25 09:13 Source: patient, RN notes reviewed and old records reviewed Mode of arrival: ambulatory Limitations: no limitations History of Present Illness HPI narrative: 74-year-old female presents to the [facility] with pain in the right mid buttock, pain radiates down her leg on the side to her foot. Has a history of sciatica of the left, receives steroid injections. Last steroid injection was In March. Symptoms started yesterday. Patient walking with a cane. No loss retention about bladder. Denies any recent injury. Patient reports that she took a hydrocodone which did not help. states that she called her primary care provider was cooled to come to the urgent care for a pain shot. Onset (ago): day(s) (1) Related Data Home Medications ?Medication ?Instructions ?Recorded ?Confirmed ?Last Taken ?Type glucosamine sulf dipot 1 cap PO DAILY 02/26/20 02/06/24 02/26/20 09:00 History chlr,msm,chond 550 mg-C 30 mg-denisa 1 mg capsule (Glucosamine Chondroitin) folic acid 1 mg tablet 1 mg PO DAILY 11/29/21 02/06/24 Unknown History linaclotide 72 mcg capsule 72 mcg PO DAILY 11/29/21 02/06/24 Unknown History (Linzess) triamterene 37.5 1 tablet PO DAILY 05/20/22 02/06/24 Unknown History mg-hydrochlorothiazide 25 mg tablet alprazolam 0.25 mg tablet 0.25 mg PO BID 06/08/22 02/06/24 Unknown History fluoxetine 40 mg capsule 40 mg PO DAILY 02/20/23 02/06/24 Unknown History linaclotide 145 mcg capsule 145 mcg PO .QD 02/06/24 02/06/24 Unknown History (Linzess) meloxicam 15 mg tablet mg 01/15/25 Unknown History Allergies Allergy/AdvReac Type Severity Reaction Status Date / Time Penicillins Allergy Severe swelling Verified 01/15/25 09:23 eyes oxycodone AdvReac Intermediate n/v, Verified 01/15/25 09:23 dizziness pregabalin (From Lyrica) AdvReac Intermediate Dizziness Verified 01/15/25 09:23 tramadol AdvReac Intermediate n/v, Verified 01/15/25 09:23 dizziness Review of Systems Review of Systems: All systems reviewed & are unremarkable except as noted in HPI and below Constitutional: Constitutional: Reports no additional constitutional complaints Cardiovascular: Cardiovascular: Reports no additional cardiovascular complaints, Denies chest pain and Denies dyspnea Respiratory: Respiratory: Reports no additional respiratory complaints, Denies chest congestion, Denies cough and Denies dyspnea Gastrointestinal: Gastrointestinal: Reports no additional gastrointestinal complaints Genitourinary: Genitourinary: Reports no additional female genitourinary complaints Musculoskeletal: Musculoskeletal: Reports as per HPI and Denies numbness Integumentary/Breasts: Skin/Breast: Reports system reviewed and no additional complaints, except as docu PMFSH Past Medical History Medical History Hypertension Dyslipidemia Gastroesophageal reflux disease Degenerative disc disease Diverticulosis Anxiety Depression Arthritis Generalized; primarily in knees and hips. Endometriosis Rectal polyp Seasonal allergies Meniere's disease Surgical History Surgical History History of total abdominal hysterectomy and bilateral salpingo-oophorectomy History of excision of pilonidal cyst History of cholecystectomy History of right hip replacement History of 3 sections Family History Family History Mother Hypertension Cerebrovascular accident Hyperlipidemia Sibling Diabetes mellitus Social History Social History Social History: Surrogate medical decision maker: Toribio Kamara, spouse. Code status: Full code. Smoking status: Never smoker Alcohol intake: never Substance use: never Substance use type: does not use Do You Feel Safe in your Home?: Yes Lack of Transportation: No Lack of Food: Never True Current Housing: I Have Housing Concerned About Future Housing: No Difficulty Paying Gas/Electric Bills: No Difficulty Paying for Meds: No Currently Unemployed: No Education: Associate Degree Difficulty w/ Childcare or Family Care: No Additional living arrangements comments: . Lives with spouse in [place]. They have 4 children. Additional occupation/education comments: Retired from the [employer]. Spiritual care concerns: No Comments At the time of my signature, I reviewed and agree with the nursing past medical, surgical, social, and family history. There is no relevant family history pertinent to the patient complaint. Exam Const: General: cooperative, no acute distress, well developed, alert, uncomfortable and well nourished Nutritional Appearance: well nourished Orientation/consciousness: patient oriented x3 Limitations: no limitations HENMT: Head: normal to inspection Eyes: General: appearance normal, both eyes and all related structures Alignment and Position: alignment normal Neck: Neck: normal visual inspection, full ROM, no lymphadenopathy and no meningeal signs Chest: Chest palpation & inspection: normal inspection of the chest Resp: Effort & Inspection: normal respiratory effort and able to speak in complete sentences Cardio: Rate: regular rate GI: GI Palp: No abdominal tenderness Back/Spine/Pelvis: Cervical Spine: No cervical muscular tenderness, No pain with cervical ROM and No Cervical spine tenderness Thoracic/Lumbar Spine: No paraspinal muscle tenderness, No thoracic spinal tenderness and No lumbar spinal tenderness Pelvis: no pain with lateral compression Sacroiliac joints: on the right tender to palpation Skin: General skin exam: normal color and no rashes or lesions noted Neuro: General: patient oriented x3, gait normal, moves all extremities and no meningeal signs Cognition (Neuro): normal cognition Speech: normal speech Gait exam (Neuro): Assisted gait required other ( Cane) Extrem: General: normal to inspection, full ROM and capillary refill normal Psych: Appearance: grossly normal and well kempt Mental Status: mental status grossly normal Speech and movement: Normal speech and movement present and Clear speech present Affect: normal affect Attitude: cooperative Course Course Level of Care: Express Care Visit Vital Signs Vital signs: Vital Signs Temperature 97 F L 01/15/25 08:48 Pulse Rate 69 01/15/25 08:48 Respiratory Rate 16 01/15/25 08:48 Blood Pressure 154/63 H 01/15/25 08:48 Pulse Oximetry 100 01/15/25 08:48 Oxygen Delivery Room Air 01/15/25 08:48 Temperature 97 F L 01/15/25 08:48 Pulse Rate 69 01/15/25 08:48 Respiratory Rate 16 01/15/25 08:48 Blood Pressure 154/63 H 01/15/25 08:48 Pulse Oximetry 100 01/15/25 08:48 Oxygen Delivery Room Air 01/15/25 08:48 Reviewed Medical Decision Making MDM Narrative Medical decision making narrative: patient sitting in exam room. Patient is nontoxic, vitals are stable except blood pressure elevated. Patient does take blood pressure medication, managed by primary care provider. Patient is reporting right SI joint pain. Has a history of chronic issues with the left eye side joint, has received steroid Injections in the past. patient reports that she called her primary today, was unable to get in, was told to go to an urgent care and get a pain shot. Patient denies any history of diabetes. Will prescribe prednisone, muscle relaxer for the patient. Encourage to use [id number] products as well. Patient appropriate for outpatient treatment and follow-up Discharge instructions reviewed with patient, as well as provided in writing per nursing staff. The instructions also include specific and strict return/GO TO THE ER as well as f/u information. All questions have been answered, and the patient deny any further questions with discharge and discharge plan. Some parts of this dictation were generated by voice recognition software and may contain typographical and/or grammatical inaccuracies. Differential Diagnosis Differential Diagnosis: sciatic, back pain, Medical Records Medical records reviewed: Yes I reviewed the external patient's medical records. Vital Signs Vital Signs: Vital Signs Temperature 97 F L 01/15/25 08:48 Pulse Rate 69 01/15/25 08:48 Respiratory Rate 16 01/15/25 08:48 Blood Pressure 154/63 H 01/15/25 08:48 Pulse Oximetry 100 01/15/25 08:48 Oxygen Delivery Room Air 01/15/25 08:48 Temperature 97 F L 01/15/25 08:48 Pulse Rate 69 01/15/25 08:48 Respiratory Rate 16 01/15/25 08:48 Blood Pressure 154/63 H 01/15/25 08:48 Pulse Oximetry 100 01/15/25 08:48 Oxygen Delivery Room Air 01/15/25 08:48 Reviewed Lab Data Lab results reviewed: Yes I reviewed the patient's lab results. Labs: Reviewed Critical Care Time Critical Care Time Critical Care Time: No Discharge Plan Discharge Clinical Impression: Right sided sciatica Patient Disposition: Home Condition: Stable Instructions: Antibiotic Form, Sciatica (ED), Lower Back Exercises (ED) Additional Instructions: Take Baclofen (muscle relaxer) as directed. Do not drink, drive, operate machinery, or do anything dangerous while taking this medication Exercise:Combine aerobic exercise, like walking or swimming, with specific exercises to keep the muscles in your back and abdomen strong and flexible. Proper Lifting:Be sure to lift heavy items with your legs, not your back. Do not bend over to pick something up. Keep your back straight and bend at your knees. Weight:Maintain a healthy weight. Being overweight puts added stress on your lower back. Avoid Smoking:Both the smoke and the nicotine cause your spine to age faster than normal. Proper Posture:Good posture is important for avoiding future problems. A therapist can teach you how to safely stand, sit, and lift. Use warm moist heat to help with pain. Using topical such as Biofreeze, Chao-Hammer or Aspercreme can also help Follow up with Primary provider in 2-3 days, This may become a chronic condition and they will be the one to help manage your pain and order additional testing. Go to the nearest ER if you develop problems with bladder/bowel function, weakness or loss of feeling in one or both of your legs. Patient Language: British Prescriptions: New baclofen 10 mg tablet See Rx Instructions .Route .COMPLEX PRN (Reason: muscle pain) Qty: 7 0RF Rx Instructions: 0.5-1 tab bid prn pain prednisone 20 mg tablet See Rx Instructions .Route .COMPLEX Qty: 9 0RF Rx Instructions: Take 40 mg daily for 3 days, 20 mg daily for 3 days No Action folic acid 1 mg tablet 1 mg PO DAILY Linzess 72 mcg capsule 72 mcg PO DAILY triamterene-hydrochlorothiazid 37.5-25 mg tablet 1 tablet PO DAILY alprazolam 0.25 mg tablet 0.25 mg PO BID Linzess 145 mcg capsule 145 mcg PO .QD meloxicam 15 mg tablet fluoxetine 40 mg capsule 40 mg PO DAILY aspirin 81 mg Tablet,Delayed Release (Dr/Ec) 81 mg PO QAM Qty: 90 3RF Glucosamine Chondroitin 550-30-1 mg Capsule 1 cap PO DAILY Follow-up/Referrals: Audi,MARTA Dejesus [Primary Care Provider, Unknown] - 1 Week Clinical Impression: Right sided sciatica Time of Disposition: 09:24
== END 2025-01-15 09:30 | disposition home or self-care (01) ==
PROVIDERS: Emergency Provider Nurse Practitioner; PCP Nurse Practitioner Family
DX: M54.31 Sciatica, right side (principal); I10 Essential (primary) hypertension; E78.5 Hyperlipidemia, unspecified; K21.9 Gastro-esophageal reflux disease without esophagitis; N80.9 Endometriosis, unspecified; H81.09 Meniere's disease, unspecified ear; M17.0 Bilateral primary osteoarthritis of knee; M16.0 Bilateral primary osteoarthritis of hip; F41.9 Anxiety disorder, unspecified; F32.A Depression, unspecified; Z96.641 Presence of right artificial hip joint
CPT/HCPCS: 99213; G0463

== ENCOUNTER 2025-01-31 08:24 | Emergency (ER) | payer MEDICARE, OTHER, SELFPAY ==
--- NOTE | ~2025-01-31 | XR_ITS ---
EXAMINATION: XR chest 2V, 01/31/2025 10:25 WEIGHT INSPECTOR HISTORY: weakness, cough, uri COMPARISON: No comparisons available. Technique: 2 views obtained. Findings: The lungs are clear, no effusion. No pneumothorax. Heart is normal size. Mediastinal and hilar contours are within normal limits. Bony thorax no acute abnormality. Impression: No acute cardiopulmonary abnormality. Reviewed, dictated and finalized at location P. HT INSPECTOR Impression: No acute cardiopulmonary abnormality.
--- NOTE | ~2025-01-31 | CT_ITS ---
EXAMINATION: CTA chest PE protocol DATE: 01/31/2025 11:53 INDICATION: Rule out PE TECHNIQUE: Computed tomography angiography (CTA) of the chest was performed with 100 mL Omnipaque-350 intravenous contrast timed to evaluate the pulmonary arteries. Coronal maximum intensity projection 3D-reconstructions were created by the technologist. The dose-length product was 206.58 mGy-cm. COMPARISON: None. FINDINGS: No pulmonary emboli or thoracic aortic aneurysm/dissection. Heart size normal. Other than scattered fibrotic/atelectatic changes the lungs are clear. Degenerative changes throughout the bony thorax which otherwise appears intact. No acute process seen in the visualized upper abdomen or extrathoracic soft tissues. Cholecystectomy clips noted. IMPRESSION: No pulmonary emboli. No gross acute intrathoracic process identified. Reviewed, dictated and finalized at location A. LATE STORAGE CLERK IMPRESSION: No pulmonary emboli. No gross acute intrathoracic process identif ied.
[2025-01-31 08:26] VITALS: BP 110/88; PULSE 76; RESP 18; TEMP 36.6; O2SAT 99
[2025-01-31 09:52] VITALS: BP 137/67; PULSE 76; RESP 18; TEMP 36.6; O2SAT 99
--- NOTE | 2025-01-31 09:54 | ECG_ITS ---
Test Date: 2025-01-31 09:58:39 Measurements Intervals Jud Rate: 71 P: 31 WA: 158 QRS: 26 QRSD: 89 T: 23 QT: 402 QTc: 439 Interpretive Statements SINUS RHYTHM BASELINE WANDER- III NORMAL ECG Compared to ECG 09/15/2024 21:02:20 NO SIGNIFICANT CHANGE Electronically Signed On 01-31-2025 10:37:33 [employer] by Rodrigue Singh D.O.
[2025-01-31 10:08] LABS: Add Urine Microscopic? YES; Appearance Urine Cloudy (Clear); Glucose Urine UA Negative (Negative); Leukocyte Esterase Ur Negative LEU/UL (Negative); Nitrate Urine Negative (Negative); Non Pathogenic Casts 0-2; Specific Grav Ur 1.014 (1.001-1.035)
[2025-01-31 10:11] LABS: Hematocrit 39.9 % (37.0-47.0); Hemoglobin 14.2 g/dL (12.0-15.0); Immature Granulocyte Percent A 0.3 % (0-0.5); Lymphocytes Absolute Auto 0.73 K/mm3 (0.9-3.2); Mean Corpuscular HGB Conc 35.6 g/dl (32-36); Mean Corpuscular Hemoglobin 31.6 pg (26-34); Mean Corpuscular Volume 88.7 fl (80-100); Nucleated Red Blood Cells Absolute Auto 0.000 K/mm3 (0.0-0.012); Nucleated Red Blood Cells Perc 0.0 % (0.0-0.2); Platelet Count Result 340 k/mm3 (150-375); Red Blood Count 4.50 M/mm3 (4.2-5.4); White Blood Count 10.3 K/mm3 (4.5-10.0)
[2025-01-31 10:33] LABS: Alanine Aminotransferase 31 U/L (6-35); Albumin Level 4.0 g/dL (3.5-5.1); Alkaline Phosphatase 97 U/L (38-126); Anion Gap 10 mmol/L (4-12); Aspartate Amino Transferase 54 U/L (14-36); Bilirubin,Total 0.7 mg/dL (0.2-1.3); Blood Urea Nitrogen 10 mg/dL (7-17); Calcium 9.1 mg/dL (8.4-10.2); Carbon Dioxide 26 mmol/L (22-30); Chloride 90 mmol/L (98-107); Estimated Glomerular Filt Rate > 60; Glucose 124 mg/dL (65-110); Magnesium 1.7 mg/dL (1.6-2.3); Potassium 3.0 mmol/L (3.4-5.0); Sodium 126 mmol/L (137-145); Total Protein 7.4 g/dL (6.3-8.2)
[2025-01-31 10:38] LABS: Influenza A QL RT-PCR Negative (Negative); Influenza B QL RT-PCR Negative (Negative); RSV RNA, RT-PCR Negative (Negative); SARS-CoV-2 RNA PCR Positive (Negative)
[2025-01-31] MEDS: ONDANSETRON INJ 4 MG/2 ML VIAL IV PUSH (10:39)
[2025-01-31] MEDS: SODIUM CHLORIDE 0.9% IV 1,000 ML 999 ML IV CONT (10:39)
[2025-01-31 10:46] LABS: Lipase 122 U/L (23-300)
[2025-01-31] MEDS: KCL 20 MEQ/SW 100 ML 100 ML 50 MEQ IVPB (11:08)
[2025-01-31] MEDS: MAGNESIUM SULF 2 GM/WATER 50ML 2 GM/50 ML BAG IVPB (11:08)
[2025-01-31 11:09] LABS: Strep Group A RT-PCR NOT DETECTED (Negative)
--- NOTE | 2025-01-31 11:36 | ED.WEAKNESS ---
HPI - Weakness General Chief complaint: Weakness Stated complaint: weakness x 4 days Time Seen by Provider: 01/31/25 09:56 Source: patient Mode of arrival: ambulatory Limitations: no limitations History of Present Illness HPI Narrative: Patient is a 74-year-old female who presents the ED with report of weakness. Patient reports she has been sick over the past 3-4 days with productive cough, congestion, sore throat, body aches, generalized weakness, nausea, diarrhea, fatigue. Patient states she has never felt this bad in her entire life. She reports SOB, intermittent chest discomfort, subjective fevers. Denies known sick contacts. has not had similar symptoms. Denies abdominal pain. Related Data Home Medications ?Medication ?Instructions ?Recorded ?Confirmed ?Last Taken ?Type glucosamine sulf dipot 1 cap PO DAILY 02/26/20 02/06/24 02/26/20 09:00 History chlr,msm,chond 550 mg-C 30 mg-denisa 1 mg capsule (Glucosamine Chondroitin) folic acid 1 mg tablet 1 mg PO DAILY 11/29/21 02/06/24 Unknown History linaclotide 72 mcg capsule 72 mcg PO DAILY 11/29/21 02/06/24 Unknown History (Linzess) triamterene 37.5 1 tablet PO DAILY 05/20/22 02/06/24 Unknown History mg-hydrochlorothiazide 25 mg tablet alprazolam 0.25 mg tablet 0.25 mg PO BID 06/08/22 02/06/24 Unknown History fluoxetine 40 mg capsule 40 mg PO DAILY 02/20/23 02/06/24 Unknown History linaclotide 145 mcg capsule 145 mcg PO .QD 02/06/24 02/06/24 Unknown History (Linzess) meloxicam 15 mg tablet mg 01/15/25 Unknown History Allergies Allergy/AdvReac Type Severity Reaction Status Date / Time Penicillins Allergy Severe swelling Verified 01/31/25 08:28 eyes oxycodone AdvReac Intermediate n/v, Verified 01/31/25 08:28 dizziness pregabalin (From Lyrica) AdvReac Intermediate Dizziness Verified 01/31/25 08:28 tramadol AdvReac Intermediate n/v, Verified 01/31/25 08:28 dizziness Review of Systems Review of Systems: All systems reviewed & are unremarkable except as noted in HPI. All systems reviewed & are unremarkable except as noted in HPI and below PMFSH Past Medical History Medical History Hypertension Dyslipidemia Gastroesophageal reflux disease Degenerative disc disease Diverticulosis Anxiety Depression Arthritis Generalized; primarily in knees and hips. Endometriosis Rectal polyp Seasonal allergies Meniere's disease Surgical History Surgical History History of total abdominal hysterectomy and bilateral salpingo-oophorectomy History of excision of pilonidal cyst History of cholecystectomy History of right hip replacement History of 3 sections Family History Family History Mother Hypertension Cerebrovascular accident Hyperlipidemia Sibling Diabetes mellitus Social History Social History Social History: Surrogate medical decision maker: Toribio Diaz, spouse. Code status: Full code. Smoking status: Never smoker Alcohol intake: never Substance use: never Substance use type: does not use Lack of Transportation: No Lack of Food: Never True Current Housing: I Have Housing Concerned About Future Housing: No Difficulty Paying Gas/Electric Bills: No Difficulty Paying for Meds: No Currently Unemployed: No Education: Associate Degree Difficulty w/ Childcare or Family Care: No Additional living arrangements comments: . Lives with spouse in [place]. They have 4 children. Additional occupation/education comments: Retired from the [employer]. Spiritual care concerns: No Exam Narrative: GENERAL: Ill appearing, well-nourished, non-toxic, in mild acute distress. HEAD: Normocephalic, atraumatic. ENT: Diffuse posterior pharynx erythema. No significant tonsillar hypertrophy or exudate. Uvula midline and nonedematous. No stridor /distress. Maintaining secretions. RESPIRATORY: Airway patent, respirations nonlabored. Clear to auscultation bilaterally, no rales, rhonchi, wheezing. CARDIOVASCULAR: Regular rate and rhythm without murmurs, rubs, or gallops. Peripheral pulses intact ABDOMINAL: Soft, no significant focal tenderness, nondistended. Normoactive BS. MUSCULOSKELETAL: Moves all extremities. No gross deformities. No peripheral edema SKIN: Warm, dry, normal color. NEURO: A&O X3. Speech clear. Cranial nerves II-XII grossly intact. Steady gait. No ataxic movements. PSYCHIATRIC: Appropriate mood and affect. Normal interaction. Course Vital Signs Vital signs: Vital Signs Temperature 97.8 F 01/31/25 08:26 Pulse Rate 76 01/31/25 08:26 Respiratory Rate 18 01/31/25 08:26 Blood Pressure 110/88 01/31/25 08:26 Pulse Oximetry 99 01/31/25 08:26 Oxygen Delivery Room Air 01/31/25 08:26 Temperature 97.9 F 01/31/25 09:52 Pulse Rate 77 01/31/25 14:28 Respiratory Rate 16 01/31/25 14:28 Blood Pressure 150/58 H 01/31/25 14:28 Pulse Oximetry 98 01/31/25 14:28 Oxygen Delivery Room Air 01/31/25 09:52 MDM MDM Narrative Medical decision making narrative: Patient presented to ED with several day history of weakness, cough, sore throat, URI symptoms. Vital signs are stable upon arrival. Patient is afebrile here. Cbc with white blood cell count of 10.3. CMP with several electrolyte abnormalities. Sodium 126. Per records, patient has had similar hyponatremia in the past. Fluids are ongoing. Potassium is low at 3.0. Given IV replacement. Kidney function is stable. Mag borderline at 1.7. Given IV replacement. Normal LFTs and lipase. UA with evidence of dehydration. Again fluids are ongoing. Patient tested positive for COVID-19. This is consistent with clinical picture. Influenza, strep, RSV negative. Chest x-ray is clear. EKG without significant concerning ST changes. Troponin undetectable. CTA of chest was obtained and negative for PE or other acute process Patient was ambulated throughout the ED, did well with this. No ambulatory hypoxia Patient able to tolerate p.o. intake. Given additional 40 mEq oral KCl. She is feeling improved overall after fluids and supportive therapy in the ED. Feel she is safe for discharge home with continued sx management for COVID-19. Patient is in agreement with this plan. She feels comfortable going home. Will discharge with Josh Rosa, discussed additional [id number] therapies to try. Encouraged plenty of fluid hydration. Patient is out of the window given sx onset for paxlovid. Discussed strict return precautions. Recommended follow-up with PCP. She is in agreement with plan. Discharged in stable condition. Differential Diagnosis Differential Diagnosis: COVID, influenza, RSV, pneumonia, viral upper respiratory infection, strep throat, dehydration, electrolyte derangement Medical Records I have reviewed the following patient records and this information was taken into consideration when formulating the assessment and plan.: previous labs, previous ER visits, previous hospitalizations and previous clinic visits Lab Data MDM Lab Attestation statement: I personally reviewed the patient's lab results. 01/31/25 10:06 01/31/25 10:06 Labs: Lab Results 01/31/25 01/31/25 01/31/25 Range/Units 09:55 10:00 10:06 WBC 10.3 H (4.5-10.0) K/mm3 RBC 4.50 (4.2-5.4) M/mm3 Hgb 14.2 (12.0-15.0) g/dL Hct 39.9 (37.0-47.0) % MCV 88.7 (80-100) fl MCH 31.6 (26-34) pg MCHC 35.6 (32-36) g/dl RDW 13.7 (11.5-14.5) % Plt Count 340 (150-375) k/mm3 MPV 8.7 (7.4-10.4) fl Immature Gran % (Auto) 0.3 (0-0.5) % Neut % (Auto) 83.4 H (45.5-73.1) % Lymph % (Auto) 7.1 L (18.3-44.2) % Scott % (Auto) 9.0 H (2.6-8.5) % Eos % (Auto) 0.1 (0-4.4) % Baso % (Auto) 0.1 L (0.2-1.2) % Lymph # (Auto) 0.73 L (0.9-3.2) K/mm3 Scott # (Auto) 0.9 H (0.1-0.6) K/mm3 Eos # (Auto) 0.0 (0-0.3) K/mm3 Baso # (Auto) 0.0 (0.0-0.1) K/mm3 Abs Immat Gran (auto) 0.03 (0.00-0.031) K/mm3 Absolute Neuts (auto) 8.6 H (1.3-6.7) K/mm3 Absolute Nucleated RBC 0.000 (0.0-0.012) K/mm3 Nucleated RBC % 0.0 (0.0-0.2) % PT 13.4 (11.1-14.7) Seconds INR 1.0 APTT 32.4 (22.3-36.8) Seconds Sodium 126 L (137-145) mmol/L Potassium 3.0 L (3.4-5.0) mmol/L Chloride 90 L (98-107) mmol/L Carbon Dioxide 26 (22-30) mmol/L Anion Gap 10 (4-12) mmol/L BUN 10 (7-17) mg/dL Creatinine 0.74 (0.7-1.0) mg/dL Estim Creat Clear Calc Not Reportable Estimated GFR > 60 (59 - ) Glucose 124 H (65-110) mg/dL Calcium 9.1 (8.4-10.2) mg/dL Magnesium 1.7 (1.6-2.3) mg/dL Total Bilirubin 0.7 (0.2-1.3) mg/dL AST 54 H (14-36) U/L ALT 31 (6-35) U/L Alkaline Phosphatase 97 (38-126) U/L Troponin I < 0.012 (0.000-0.034) ng/mL Total Protein 7.4 (6.3-8.2) g/dL Albumin 4.0 (3.5-5.1) g/dL Lipase 122 (23-300) U/L Urine Color Yellow (Yellow) Urine Appearance Cloudy H (Clear) Urine pH 6.5 (5.0-9.0) Ur Specific [place] 1.014 (1.001-1.035) Urine Protein 2+ H (Negative) mg/dL Urine Glucose (UA) Negative (Negative) mg/dL Urine Ketones 2+ H (Negative) mg/dL Ur Blood (Man) Negative (Negative) Urine Nitrate Negative (Negative) Urine Bilirubin Negative (Negative) Urine Urobilinogen 1.0 (<2.0) mg/dL Leukocyte Esterase Rfl Negative (Negative) SOUMYA/UL Urine RBC 0-2 (0-2) /hpf Urine WBC 0-5 (0-3) /hpf Ur Squamous Epith Cells None seen (Few) /hpf Urine Bacteria None seen /hpf Urine Casts 0-2 Influenza A (RT-PCR) Negative (Negative) Influenza B (RT-PCR) Negative (Negative) RSV (RT-PCR) Negative (Negative) SARS-CoV-2 RNA (RT-PCR) Positive A (Negative) Group A Strep (PCR) (Negative) 01/31/25 Range/Units 10:37 WBC (4.5-10.0) K/mm3 RBC (4.2-5.4) M/mm3 Hgb (12.0-15.0) g/dL Hct (37.0-47.0) % MCV (80-100) fl MCH (26-34) pg MCHC (32-36) g/dl RDW (11.5-14.5) % Plt Count (150-375) k/mm3 MPV (7.4-10.4) fl Immature Gran % (Auto) (0-0.5) % Neut % (Auto) (45.5-73.1) % Lymph % (Auto) (18.3-44.2) % Scott % (Auto) (2.6-8.5) % Eos % (Auto) (0-4.4) % Baso % (Auto) (0.2-1.2) % Lymph # (Auto) (0.9-3.2) K/mm3 Scott # (Auto) (0.1-0.6) K/mm3 Eos # (Auto) (0-0.3) K/mm3 Baso # (Auto) (0.0-0.1) K/mm3 Abs Immat Gran (auto) (0.00-0.031) K/mm3 Absolute Neuts (auto) (1.3-6.7) K/mm3 Absolute Nucleated RBC (0.0-0.012) K/mm3 Nucleated RBC % (0.0-0.2) % PT (11.1-14.7) Seconds INR APTT (22.3-36.8) Seconds Sodium (137-145) mmol/L Potassium (3.4-5.0) mmol/L Chloride (98-107) mmol/L Carbon Dioxide (22-30) mmol/L Anion Gap (4-12) mmol/L BUN (7-17) mg/dL Creatinine (0.7-1.0) mg/dL Estim Creat Clear Calc Estimated GFR (59 - ) Glucose (65-110) mg/dL Calcium (8.4-10.2) mg/dL Magnesium (1.6-2.3) mg/dL Total Bilirubin (0.2-1.3) mg/dL AST (14-36) U/L ALT (6-35) U/L Alkaline Phosphatase (38-126) U/L Troponin I (0.000-0.034) ng/mL Total Protein (6.3-8.2) g/dL Albumin (3.5-5.1) g/dL Lipase (23-300) U/L Urine Color (Yellow) Urine Appearance (Clear) Urine pH (5.0-9.0) Ur Specific [place] (1.001-1.035) Urine Protein (Negative) mg/dL Urine Glucose (UA) (Negative) mg/dL Urine Ketones (Negative) mg/dL Ur Blood (Man) (Negative) Urine Nitrate (Negative) Urine Bilirubin (Negative) Urine Urobilinogen (<2.0) mg/dL Leukocyte Esterase Rfl (Negative) SOUMYA/UL Urine RBC (0-2) /hpf Urine WBC (0-3) /hpf Ur Squamous Epith Cells (Few) /hpf Urine Bacteria /hpf Urine Casts Influenza A (RT-PCR) (Negative) Influenza B (RT-PCR) (Negative) RSV (RT-PCR) (Negative) SARS-CoV-2 RNA (RT-PCR) (Negative) Group A Strep (PCR) Not detected (Negative) Imaging Data Attestation: I personally reviewed and interpreted this imaging study as follows: Radiologist's impression: ITS Impressions Chest X-Ray 01/31/25 10:34 Impression: No acute cardiopulmonary abnormality. Chest CTA 01/31/25 11:55 IMPRESSION: No pulmonary emboli. No gross acute intrathoracic process identified. ECG Data EKG #1: Attestation: I personally reviewed and interpreted this ECG as follows: ECG completion date: 01/31/25 ECG completion time: 09:58 normal rate (71), sinus rhythm and no ST changes Discharge Plan Discharge Clinical Impression: COVID-19, Dehydration, Chronic hyponatremia, Hypokalemia Patient Disposition: Home Condition: Stable Instructions: Antibiotic Form, COVID-19 (Coronavirus Disease 2019) (ED), How to Recover from COVID-19 at Home (ED) Additional Instructions: You were diagnosed with COVID-19 today. Isolate at home as you are contagious. Stay very well-hydrated at home. Recommend electrolyte rich fluids, Gatorade, Pedialyte, body armor. Utilize Zofran as needed for nausea. Utilize Tessalon Perles as needed for cough. Recommend Tylenol and Ibuprofen around the clock as needed for discomfort and/or fevers. You can take 1000mg of Tylenol and 600mg of Ibuprofen every 6 hours. Recommend tscm-arb-tucjgia cough and cold medicines for symptom relief: Chloraseptic throat spray, Delsym, Mucinex, DayQuil, NyQuil, Sudafed, Robitussin, TheraFlu. Follow with primary care doctor upon resolution of symptoms. Return to the ED if you experience worsening or severe chest pain or difficulty breathing, unable to keep down food or drink, severe pain, severe dizziness, passing out, or any other symptoms of concern. Patient Language: Turkish Prescriptions: New benzonatate 200 mg capsule 200 mg PO TID PRN (Reason: cough) Qty: 15 0RF ondansetron 4 mg tablet,disintegrating 4 mg PO Q8H PRN (Reason: nausea and vomiting) Qty: 20 0RF No Action folic acid 1 mg tablet 1 mg PO DAILY Linzess 72 mcg capsule 72 mcg PO DAILY triamterene-hydrochlorothiazid 37.5-25 mg tablet 1 tablet PO DAILY alprazolam 0.25 mg tablet 0.25 mg PO BID Linzess 145 mcg capsule 145 mcg PO .QD meloxicam 15 mg tablet baclofen 10 mg tablet See Rx Instructions .Route .COMPLEX PRN (Reason: muscle pain) Qty: 7 0RF Rx Instructions: 0.5-1 tab bid prn pain prednisone 20 mg tablet See Rx Instructions .Route .COMPLEX Qty: 9 0RF Rx Instructions: Take 40 mg daily for 3 days, 20 mg daily for 3 days fluoxetine 40 mg capsule 40 mg PO DAILY aspirin 81 mg Tablet,Delayed Release (Dr/Ec) 81 mg PO QAM Qty: 90 3RF Glucosamine Chondroitin 550-30-1 mg Capsule 1 cap PO DAILY Follow-up/Referrals: Audi,MARTA Dejesus [Primary Care Provider, Unknown] Time of Disposition: 14:14
[2025-01-31 11:51] VITALS: BP 132/59; PULSE 69; RESP 22; O2SAT 100
[2025-01-31 12:32] LABS: INR 1.0; Partial Thromboplastin Time 32.4 Seconds (22.3-36.8); Prothrombin Time 13.4 Seconds (11.1-14.7)
[2025-01-31 12:38] LABS: Troponin I < 0.012 ng/mL (0.000-0.034)
--- NOTE | 2025-01-31 12:53 | PC.NURSE ---
Patient ambulated to the restroom with no assistance. Patient's oxygen stayed above 95% on room air while ambulating
[2025-01-31] MEDS: POTASSIUM CHLORIDE 20 MEQ ER TABLET 40 MEQ PO (14:02)
[2025-01-31 14:28] VITALS: BP 150/58; PULSE 77; RESP 16; O2SAT 98
== END 2025-01-31 14:28 | disposition home or self-care (01) ==
PROVIDERS: Emergency Medicine; Emergency Provider Physician Assistant; PCP Nurse Practitioner Family
DX: U07.1 COVID-19 (principal); E86.0 Dehydration; E87.1 Hypo-osmolality and hyponatremia; E87.6 Hypokalemia; I10 Essential (primary) hypertension; K21.9 Gastro-esophageal reflux disease without esophagitis; H81.09 Meniere's disease, unspecified ear; Z20.822 Contact with and (suspected) exposure to COVID-19
CPT/HCPCS: 36415; 71046; 71275; 80053; 81001; 83690; 83735; 84484; 85025; 85610; 85730; 87637; 87651; 93005; 96365; 96366; 96367; 96375; 99284; A9270; J2405; J3475; J3480; J7030; Q9967